=== PATIENT | male | born 1945 | race Caucasian/White ===

== ENCOUNTER 2019-10-23 12:43 | Outpatient (CLI) | payer MEDICARE, SELFPAY | END 2019-10-23 12:44 | disposition home or self-care (01) | LOC: CHSLAB 12:50 | PROVIDERS: PCP Internal Medicine; Visit Provider Specialist | DX: L57.0 Actinic keratosis (principal) | CPT/HCPCS: 88305 ==

== ENCOUNTER 2019-12-24 11:27 | Outpatient (CLI) | payer MEDICARE, SELFPAY ==
[2019-12-24 12:14] LABS: Creatinine Urine 85.94 mg/dL (40-278); Total Protein Urine Random 7.4 mg/dL (0.0-11.9)
[2019-12-24 12:55] LABS: Albumin Level 3.8 g/dL (3.4-5.0); Anion Gap 14.7 mmol/L (7-16); Blood Urea Nitrogen 25 mg/dL (7-18); Calcium 9.9 mg/dL (8.5-10.1); Carbon Dioxide 29 mmol/L (21-32); Chloride 104 mmol/L (98-108); Estimated Glomerular Filt Rate 53; Glucose 128 mg/dL (70-99); Osmolality Calculated 302 mOsm/kg (285-295); Phosphorus 3.4 mg/dL (2.6-4.7); Potassium 4.7 mmol/L (3.5-5.1); Sodium 143 mmol/L (136-145)
== END 2019-12-24 11:28 | disposition home or self-care (01) ==
LOC: CHSLAB 11:30
PROVIDERS: PCP Internal Medicine; Visit Provider Internal Medicine Nephrology
DX: N18.3 Chronic kidney disease, stage 3 (moderate) (principal)
CPT/HCPCS: 36415; 80069; 82570; 84156

== ENCOUNTER 2020-01-17 11:13 | Outpatient (CLI) | payer MEDICARE, SELFPAY ==
--- NOTE | ~2020-01-17 | XR_ITS ---
EXAMINATION: XR chest 2V DATE: 01/17/2020 11:43 INDICATION: Shortness of breath. TECHNIQUE: Frontal and lateral views of the chest were obtained on 3 radiographs. COMPARISON: Chest 2 views 04/04/2018, CT abdomen 08/26/2016 FINDINGS: There is mild scarring at the lung apices. No pleural effusion or pneumothorax. The heart s ize is normal. There are changes of heart valve replacement. There is prominent extrapleural fat bila terally. IMPRESSION: 1. Mild scarring at the lung apices. Reviewed, dictated and finalized at location A.
[2020-01-17 11:25] LABS: Basophils Absolute Auto 0.07 K/mm3 (0.00-0.10); Basophils Percent Auto 0.7 % (0.0-1.0); Eosinophils Absolute Auto 0.31 K/mm3 (0.02-0.50); Eosinophils Percent Auto 3.3 % (1.0-6.0); Hematocrit 48.8 % (37.0-46.0); Hemoglobin 15.8 g/dL (12.4-15.3); Immature Granulocyte Absolute 0.04 K/mm3 (0.00-0.00); Immature Granulocyte Percent A 0.4 % (0.0-0.0); Lymphocytes Absolute Auto 3.39 K/mm3 (1.10-4.50); Lymphocytes Percent Auto 35.8 % (18.0-42.0); Mean Corpuscular HGB Conc 32.4 g/dL (32.0-36.0); Mean Corpuscular Hemoglobin 28.7 pg (27.0-31.0); Mean Corpuscular Volume 88.7 fL (78.0-102.0); Monocytes Absolute Auto 0.62 K/mm3 (0.10-0.90); Monocytes Percent Auto 6.5 % (2.0-11.0); Neutrophils Absolute Auto 5.1 K/mm3 (1.7-7.2); Neutrophils Percent Auto 53.3 % (50.0-70.0); Platelet Count Result 178 K/mm3 (150-420); Red Cell Distribution Width 13.4 % (11.6-14.4); White Blood Count 9.5 K/mm3 (4.8-10.8)
[2020-01-17 11:50] LABS: Alanine Aminotransferase 36 U/L (16-63); Albumin Level 3.5 g/dL (3.4-5.0); Alkaline Phosphatase 90 U/L (46-116); Anion Gap 13.7 mmol/L (7-16); Aspartate Amino Transferase 26 U/L (15-37); Bilirubin,Total 0.5 mg/dL (0.00-1.00); Blood Urea Nitrogen 24 mg/dL (7-18); Calcium 9.2 mg/dL (8.5-10.1); Carbon Dioxide 28 mmol/L (21-32); Chloride 103 mmol/L (98-108); Estimated Glomerular Filt Rate 57; Glucose 212 mg/dL (70-99); Osmolality Calculated 300 mOsm/kg (285-295); Potassium 4.7 mmol/L (3.5-5.1); Sodium 140 mmol/L (136-145); Total Protein 7.5 g/dL (6.4-8.2)
[2020-01-17 12:16] LABS: D Dimer 0.92 mg/L (0.19-0.50)
[2020-01-17 12:51] LABS: BNP 120 pg/mL (0-100)
[2020-01-18 18:00] LABS: Hemoglobin A1C 7.3 % (<5.7)
== END 2020-01-17 11:14 | disposition home or self-care (01) ==
PROVIDERS: PCP Internal Medicine; Visit Provider Internal Medicine Pulmonary Disease
DX: R06.89 Other abnormalities of breathing (principal); J44.9 Chronic obstructive pulmonary disease, unspecified; R73.9 Hyperglycemia, unspecified
CPT/HCPCS: 36415; 71046; 80053; 83036; 83880; 85025; 85380

== ENCOUNTER 2020-01-17 13:32 | Emergency (ER) | payer MEDICARE, SELFPAY ==
--- NOTE | ~2020-01-17 | CT_ITS ---
EXAMINATION: CTA chest PE protocol DATE: 01/17/2020 15:33 CDT INDICATION: Elevated d-dimer. Shortness of breath. TECHNIQUE: Computed tomographic angiography (CTA) of the chest was performed with 100 mL Omnipaque-35 0 intravenous contrast. The dose-length product was 631.83 mGy-cm. Maximum intensity projection 3D-re constructions of the aorta and other arteries were constructed by the technologist on a separate work station. Automated exposure control and iterative reconstruction technique were employed. COMPARISON: Chest dated 01/17/2020 FINDINGS: The is technically adequate without evidence for pulmonary embolism. There are nonenlarged mediastinal lymph nodes, likely reactive. Cardiomegaly. No significant pleural or pericardial effusio n. There is atherosclerosis of the aorta and coronary arteries. There is right lower lobe atelectasis . No focal airspace consolidation. No endobronchial lesions. No pulmonary nodules. There is diffuse i diopathic skeletal hyperostosis (DISH) of the thoracic spine. Status post median sternotomy for CABG. IMPRESSION: 1. No evidence for pulmonary embolism. No acute cardiopulmonary disease. Reviewed, dictated and finalized at location A.
--- NOTE | ~2020-01-17 | US_ITS ---
EXAMINATION: US venous doppler [facility] DATE: 01/17/2020 15:13 INDICATION: Shortness of breath. TECHNIQUE: Grayscale ultrasound images without and with compression and Doppler ultrasound images of the bilateral lower extremity veins were obtained. COMPARISON: None. FINDINGS: The visualized portions of right common femoral vein, profunda (deep) femoral vein, femoral vein, pop liteal vein, peroneal veins, posterior tibial veins, and greater saphenous vein outflow are patent. The visualized portions of left common femoral vein, profunda femoral vein, femoral vein, popliteal v ein, peroneal veins, posterior tibial veins, and greater saphenous vein outflow are patent. IMPRESSION: 1. No deep venous thrombosis. Reviewed, dictated and finalized at location A.
[2020-01-17 14:15] VITALS: BP 155/83; PULSE 61; RESP 18; TEMP 36.4; O2SAT 96
--- NOTE | 2020-01-17 15:43 | ED.RECABL ---
HPI - Recheck/Abnormal Lab/Rx General Chief Complaint: Recheck/Abnormal Lab/Rx Stated Complaint: possible blood clot Source: patient Mode of arrival: ambulatory Limitations: no limitations History of Present Illness HPI narrative: Patient presented with an elevated D-dimer is following with his pulmonary doctor and had some blood work performed today and had an abnormally elevated D-dimer and was advised to present to the emergency department for further evaluation. The patient currently is asymptomatic, does have a history of COPD but there is currently no shortness of breath no chest pain or pressure no pain with deep inspiration no fever or chills no abdominal pain no back pain no calf pain or calf swelling. Symptoms since prior visit: no new symptoms Associated symptoms: none Related Data Home Medications Medication Instructions Recorded Confirmed budesonide 90 mcg/actuation breath 2 inhalation INHALATION Q12H 07/13/19 01/17/20 activated powder inhaler citalopram 40 mg tablet 20 mg PO .Bedtime tablet 07/13/19 01/17/20 fesoterodine 4 mg tablet,extended 4 mg PO DAILY 07/13/19 01/17/20 release 24 hr fluticasone fur. 100 mcg-umeclid 1 inhalation INHALATION DAILY 07/13/19 01/17/20 62.5 mcg-vilant 25 mcg inhalat.powder memantine 10 mg tablet 10 mg PO BID 07/13/19 01/17/20 memantine 10 mg tablet 10 mg PO BID 07/13/19 01/17/20 mirabegron 25 mg tablet,extended 25 mg PO DAILY 07/13/19 01/17/20 release 24 hr potassium chloride 20 mEq 20 meq PO DAILY 07/13/19 01/17/20 tablet,extended release(part/cryst) rosuvastatin 20 mg tablet 20 mg PO DAILY 07/13/19 01/17/20 Allergies Allergy/AdvReac Type Severity Reaction Status Date / Time lorazepam Allergy Intermediate hives Verified 07/13/19 09:21 Review of Systems Review of Systems: All systems reviewed & are unremarkable except as noted in HPI and below PMFSH Past Medical History Medical History COPD (chronic obstructive pulmonary disease) Dementia Depression DM2 (diabetes mellitus, type 2) Hyperlipidemia Hypertension ADIS (obstructive sleep apnea) Overweight Surgical History Surgical History History of hernia repair History of mitral valve repair 2015. [facility] Hx of cataract surgery Right Eye Family History Family History Father , Age 86 Acute myocardial infarction Dementia Mother , Age 83 No problems noted. Other Family history of cardiovascular disease Social History Social History (Updated 07/13/19 @ 09:33 by Rekha Saucedo) Smoking status: Never smoker Alcohol intake: never Additional living arrangements comments: Exam Const: General: no acute distress and alert Orientation/consciousness: patient oriented x3 HENMT: Head: normal to inspection Eyes: Conjunctivae: conjunctivae normal Pupils: Equal, round and reactive pupils present Neck: Neck: normal visual inspection Chest: Chest palpation & inspection: normal inspection of the chest Resp: Effort & Inspection: normal respiratory effort Auscultation: clear to auscultation bilaterally GI: Auscultation: normal bowel sounds : Testes: Testes normal Skin: General skin exam: normal color Rashes: no rashes Neuro: General: patient oriented x3, moves all extremities, no meningeal signs and no focal motor deficits Extrem: General: normal to inspection and no pedal edema Psych: Appearance: grossly normal Mental Status: mental status grossly normal Affect: normal affect Attitude: cooperative Thought content: Yes Normal thought content present Course Course Emergency Course: After re-evaluation of patient patient is currently stable with no symptoms, no shortness of breath. CTA of chest and Doppler ultrasounds of bilateral lower extremi
[2020-01-17 15:46] VITALS: RESP 15; O2SAT 97
== END 2020-01-17 15:48 | disposition home or self-care (01) ==
PROVIDERS: Emergency Provider Emergency Medicine; PCP Internal Medicine
DX: R79.1 Abnormal coagulation profile (principal); J44.9 Chronic obstructive pulmonary disease, unspecified; E11.9 Type 2 diabetes mellitus without complications; E78.5 Hyperlipidemia, unspecified; I10 Essential (primary) hypertension
CPT/HCPCS: 36415; 71046; 71275; 80053; 83036; 83880; 85025; 85380; 93970; 99282; 99284; Q9965

== ENCOUNTER 2020-04-22 13:37 | Outpatient (RCR) | payer MEDICARE, SELFPAY ==
[2020-04-22 14:00] VITALS: BP 119/75; PULSE 64; RESP 16; O2SAT 96; BMI 33.0
[2020-04-23 16:00] VITALS: PULSE 64
== END 2020-07-21 23:59 | disposition home or self-care (01) ==
PROVIDERS: PCP Internal Medicine; Visit Provider Specialist
DX: Z98.61 Coronary angioplasty status (principal)
CPT/HCPCS: 93798

== ENCOUNTER 2020-05-19 14:50 | Outpatient (CLI) | payer MEDICARE, SELFPAY ==
[2020-05-19 16:35] LABS: Anion Gap 9 mmol/L (8-16); Blood Urea Nitrogen 25 mg/dL (7-18); Calcium 9.5 mg/dL (8.5-10.1); Carbon Dioxide 30 mmol/L (21-32); Chloride 103 mmol/L (98-108); Estimated Glomerular Filt Rate 50; Glucose 135 mg/dL (70-99); Osmolality Calculated 300 mOsm/kg (285-295); Potassium 3.7 mmol/L (3.5-5.1); Sodium 142 mmol/L (136-145)
== END 2020-05-19 14:51 | disposition home or self-care (01) ==
LOC: CHSLAB 14:52
PROVIDERS: PCP Internal Medicine; Visit Provider Specialist
DX: R60.9 Edema, unspecified (principal)
CPT/HCPCS: 36415; 80048; 83735

== ENCOUNTER 2020-06-18 16:38 | Outpatient (CLI) | payer MEDICARE, SELFPAY ==
[2020-06-18 16:58] LABS: Basophils Absolute Auto 0.06 K/mm3 (0.00-0.10); Basophils Percent Auto 0.7 % (0.0-1.0); Eosinophils Absolute Auto 0.19 K/mm3 (0.02-0.50); Eosinophils Percent Auto 2.3 % (1.0-6.0); Hematocrit 45.4 % (37.0-46.0); Hemoglobin 14.4 g/dL (12.4-15.3); Immature Granulocyte Absolute 0.03 K/mm3 (0.00-0.00); Immature Granulocyte Percent A 0.4 % (0.0-0.0); Lymphocytes Absolute Auto 3.06 K/mm3 (1.10-4.50); Lymphocytes Percent Auto 36.6 % (18.0-42.0); Mean Corpuscular HGB Conc 31.7 g/dL (32.0-36.0); Mean Corpuscular Volume 91.5 fL (78.0-102.0); Mean Platelet Volume 10.4 fl (8.7-11.0); Monocytes Absolute Auto 0.64 K/mm3 (0.10-0.90); Monocytes Percent Auto 7.7 % (2.0-11.0); Neutrophils Absolute Auto 4.4 K/mm3 (1.7-7.2); Neutrophils Percent Auto 52.3 % (50.0-70.0); Platelet Count Result 161 K/mm3 (150-420); Red Blood Count 4.96 M/mm3 (4.70-6.10); Red Cell Distribution Width 13.5 % (11.6-14.4); White Blood Count 8.4 K/mm3 (4.8-10.8)
[2020-06-18 17:23] LABS: Creatinine Urine 55.83 mg/dL (40-278); Total Protein Urine Random < 6.0 mg/dL (0.0-11.9)
[2020-06-18 17:38] LABS: Albumin Level 3.7 g/dL (3.4-5.0); Anion Gap 10 mmol/L (8-16); Blood Urea Nitrogen 24 mg/dL (7-18); Calcium 9.4 mg/dL (8.5-10.1); Carbon Dioxide 27 mmol/L (21-32); Chloride 107 mmol/L (98-108); Estimated Glomerular Filt Rate > 60; Glucose 156 mg/dL (70-99); Osmolality Calculated 305 mOsm/kg (285-295); Phosphorus 3.2 mg/dL (2.6-4.7); Potassium 4.3 mmol/L (3.5-5.1); Sodium 144 mmol/L (136-145); Uric Acid 6.6 mg/dL (3.5-7.2)
[2020-06-21 14:09] LABS: Parathyroid Intact 90 pg/mL (14-64)
[2020-06-24 09:40] LABS: Vitamin D 25 Hydroxy 32 ng/mL (30-100)
== END 2020-06-18 16:39 | disposition home or self-care (01) ==
PROVIDERS: PCP Internal Medicine; Visit Provider Internal Medicine Nephrology
DX: N20.9 Urinary calculus, unspecified (principal); N18.30 Chronic kidney disease, stage 3 unspecified
CPT/HCPCS: 36415; 80069; 82306; 82570; 83970; 84156; 84550; 85025

== ENCOUNTER 2020-06-20 09:53 | Outpatient (CLI) | payer MEDICARE, SELFPAY | END 2020-06-20 09:54 | disposition home or self-care (01) | PROVIDERS: PCP Internal Medicine; Visit Provider Internal Medicine Nephrology | DX: N20.9 Urinary calculus, unspecified (principal); N18.30 Chronic kidney disease, stage 3 unspecified | CPT/HCPCS: 36415; 82340; 82507; 82570; 83735; 83945; 83986; 84105; 84133; 84300; 84392; 84560 ==

== ENCOUNTER 2020-07-23 16:29 | Outpatient (RCR) | payer MEDICARE, SELFPAY ==
[2020-07-22 00:02] VITALS: BP 119/75; PULSE 64; RESP 16; O2SAT 96; BMI 33.0
== END 2020-07-23 20:00 | disposition home or self-care (01) ==
PROVIDERS: PCP Internal Medicine; Visit Provider Specialist
DX: Z98.61 Coronary angioplasty status (principal)
CPT/HCPCS: 93798

== ENCOUNTER 2020-08-11 11:21 | Outpatient (CLI) | payer MEDICARE, SELFPAY ==
[2020-08-11 12:02] LABS: SARS-CoV-2 Ag Positive (Negative)
== END 2020-08-11 11:22 | disposition home or self-care (01) ==
LOC: CHSLAB 11:23
PROVIDERS: PCP Internal Medicine; Visit Provider Internal Medicine
DX: U07.1 COVID-19 (principal)
CPT/HCPCS: 87426

== ENCOUNTER 2020-10-29 17:10 | Outpatient (CLI) | payer MEDICARE, SELFPAY ==
[2020-10-29 17:44] LABS: Hematocrit 43.8 % (37.0-46.0); Hemoglobin 13.8 g/dL (12.4-15.3); Mean Corpuscular HGB Conc 31.5 g/dL (32.0-36.0); Mean Corpuscular Hemoglobin 27.9 pg (27.0-31.0); Mean Corpuscular Volume 88.5 fL (78.0-102.0); Mean Platelet Volume 10.6 fl (8.7-11.0); Platelet Count Result 178 K/mm3 (150-420); Red Blood Count 4.95 M/mm3 (4.70-6.10); Red Cell Distribution Width 14.8 % (11.6-14.4); White Blood Count 9.5 K/mm3 (4.8-10.8)
[2020-10-29 17:44] LABS: Appearance Urine Clear (Clear); Bilirubin Urine Negative (Negative); Color Urine Yellow (Yellow); Glucose Urine UA Negative (Negative); Ketones Urine Negative (Negative); Leukocyte Esterase Ur Negative LEU/UL (Negative); Nitrate Urine Negative (Negative); Protein Urine Negative (Negative)
[2020-10-29 18:10] LABS: Add Urine Microscopic? YES; Bacteria Urine Trace /hpf; Blood Urine Trace-Intact (Negative); Squamous Epithelial Cell Urine Rare /hpf (Few); WBC Urine 0-3 /hpf (0-3)
[2020-10-29 19:17] LABS: Alanine Aminotransferase 34 U/L (16-63); Albumin Level 3.5 g/dL (3.4-5.0); Alkaline Phosphatase 110 U/L (46-116); Anion Gap 8 mmol/L (8-16); Aspartate Amino Transferase 23 U/L (15-37); Bilirubin,Total 0.5 mg/dL (0.00-1.00); Blood Urea Nitrogen 22 mg/dL (7-18); Calcium 9.3 mg/dL (8.5-10.1); Carbon Dioxide 33 mmol/L (21-32); Chloride 103 mmol/L (98-108); Estimated Glomerular Filt Rate 56; Glucose 182 mg/dL (70-99); Osmolality Calculated 306 mOsm/kg (285-295); Potassium 4.4 mmol/L (3.5-5.1); Prostate Specific Antigen 0.4 ng/mL (< OR = 4.0); Sodium 144 mmol/L (136-145); Thyroid Stimulating Hormone 1.22 uIU/mL (0.36-3.74); Total Protein 6.9 g/dL (6.4-8.2)
[2020-10-30 10:46] LABS: Hemoglobin A1C 7.3 % (<5.7)
== END 2020-10-29 17:11 | disposition home or self-care (01) ==
LOC: CHSLAB 17:11
PROVIDERS: PCP Internal Medicine; Visit Provider Internal Medicine
DX: L03.116 Cellulitis of left lower limb (principal); Z12.5 Encounter for screening for malignant neoplasm of prostate; R73.01 Impaired fasting glucose; R53.83 Other fatigue
CPT/HCPCS: 36415; 80053; 81001; 83036; 84153; 84443; 85025; G0103

== ENCOUNTER 2020-10-30 12:05 | Outpatient (CLI) | payer MEDICARE, SELFPAY ==
--- NOTE | ~2020-10-30 | US_ITS ---
EXAMINATION: US venous doppler [facility] DATE: 10/30/2020 12:31 INDICATION: Left lower limb pain and edema. TECHNIQUE: Grayscale ultrasound images without and with compression and Doppler ultrasound images of the left lower extremity veins were obtained. COMPARISON: Ultrasound 01/17/2020 FINDINGS: The visualized portions of left common femoral vein, profunda (deep) femoral vein, femoral vein, popl iteal vein, peroneal veins, posterior tibial veins, and greater saphenous vein outflow are patent. IMPRESSION: 1. No deep venous thrombosis. Reviewed, dictated and finalized at location A. [employer]TAIN[employer]
== END 2020-10-30 12:06 | disposition home or self-care (01) ==
PROVIDERS: PCP Internal Medicine; Visit Provider Internal Medicine
DX: M79.605 Pain in left leg (principal); R60.0 Localized edema
CPT/HCPCS: 93971

== ENCOUNTER 2020-12-29 10:34 | Outpatient (CLI) | payer MEDICARE, SELFPAY ==
--- NOTE | ~2020-12-29 | XR_ITS ---
XR abdomen/kub 1V DATE: 12/29/2020 10:56 INDICATION: History of kidney stones TECHNIQUE: AP projection, 2 views COMPARISON: 06/18/2019 KUB 01/17/2020 CT pulmonary scan FINDINGS: There are at least 2 and possibly more calcifications overlying the lower pole of the left kidney, the largest measuring approximately 5-6 mm maximal dimension. Noncontrast CT abdomen pelvis e xamination would be more sensitive for detection of urinary tract stones. There is a moderately prominent amount of fecal material in the rectum and colon but no bowel obstruc tion. The psoas shadows are intact. No visceromegaly is evident. Status post sternotomy and mitral valve replacement. Diffuse osteopenia. Degenerative changes of the thoracic and lumbar spine. Status post left hip arthr oplasty. IMPRESSION: Left nephrolithiasis Reviewed, dictated and finalized at Location A. Reviewed, dictated and finalized at location A. IMPRESSION: Left nephrolithiasis
== END 2020-12-29 10:35 | disposition home or self-care (01) ==
LOC: CHSIMG 10:36
PROVIDERS: PCP Internal Medicine; Visit Provider Internal Medicine Nephrology
DX: N20.0 Calculus of kidney (principal)
CPT/HCPCS: 74018

== ENCOUNTER 2021-02-13 10:26 | Outpatient (CLI) | payer MEDICARE, SELFPAY ==
[2021-02-13 11:00] LABS: Creatinine Urine 200.53 mg/dL (40-278); MALB Creatinine Ratio 20.3 mg/g (0-30); Microalbumin Urine Random 40.9 mg/L
[2021-02-13 11:03] LABS: Hemoglobin A1C 7.3 % (<5.7)
[2021-02-13 11:20] LABS: Alanine Aminotransferase 37 U/L (16-63); Albumin Level 3.6 g/dL (3.4-5.0); Alkaline Phosphatase 108 U/L (46-116); Anion Gap 12 mmol/L (8-16); Aspartate Amino Transferase 25 U/L (15-37); Bilirubin,Total 0.5 mg/dL (0.00-1.00); Blood Urea Nitrogen 20 mg/dL (7-18); Calcium 9.6 mg/dL (8.5-10.1); Carbon Dioxide 27 mmol/L (21-32); Chloride 103 mmol/L (98-108); Cholesterol 184 mg/dL (0-200); Estimated Glomerular Filt Rate > 60; Glucose 152 mg/dL (70-99); HDL Direct 40 mg/dL (40-60); LDL Cholesterol Calculated 75 mg/dL (<130); Osmolality Calculated 299 mOsm/kg (285-295); Potassium 4.1 mmol/L (3.5-5.1); Sodium 142 mmol/L (136-145); Total Protein 6.9 g/dL (6.4-8.2); Triglycerides 346 mg/dL (0-150)
== END 2021-02-13 10:27 | disposition home or self-care (01) ==
LOC: CHSLAB 10:30
PROVIDERS: PCP Internal Medicine; Visit Provider Internal Medicine
DX: E11.9 Type 2 diabetes mellitus without complications (principal)
CPT/HCPCS: 36415; 80053; 80061; 82043; 83036

== ENCOUNTER 2021-06-05 10:11 | Outpatient (CLI) | payer MEDICARE, SELFPAY ==
[2021-06-05 11:09] LABS: Alanine Aminotransferase 38 U/L (16-63); Albumin Level 3.6 g/dL (3.4-5.0); Alkaline Phosphatase 99 U/L (46-116); Anion Gap 11 mmol/L (8-16); Aspartate Amino Transferase 21 U/L (15-37); Bilirubin,Total 0.5 mg/dL (0.00-1.00); Blood Urea Nitrogen 18 mg/dL (7-18); Calcium 9.6 mg/dL (8.5-10.1); Carbon Dioxide 27 mmol/L (21-32); Chloride 106 mmol/L (98-108); Cholesterol 192 mg/dL (0-200); Estimated Glomerular Filt Rate 58; Glucose 132 mg/dL (70-99); HDL Direct 35 mg/dL (40-60); LDL Cholesterol Calculated 88 mg/dL (<130); Osmolality Calculated 301 mOsm/kg (285-295); Potassium 4.1 mmol/L (3.5-5.1); Sodium 144 mmol/L (136-145); Triglycerides 346 mg/dL (0-150)
== END 2021-06-05 10:12 | disposition home or self-care (01) ==
PROVIDERS: PCP Internal Medicine; Visit Provider Internal Medicine
DX: E11.9 Type 2 diabetes mellitus without complications (principal); E78.5 Hyperlipidemia, unspecified
CPT/HCPCS: 36415; 80053; 80061; 83036

== ENCOUNTER 2021-09-11 09:32 | Outpatient (CLI) | payer MEDICARE, SELFPAY ==
[2021-09-11 09:44] LABS: Basophils Absolute Auto 0.08 K/mm3 (0.00-0.10); Basophils Percent Auto 0.9 % (0.0-1.0); Eosinophils Absolute Auto 0.39 K/mm3 (0.02-0.50); Eosinophils Percent Auto 4.6 % (1.0-6.0); Hematocrit 48.7 % (37.0-46.0); Hemoglobin 15.3 g/dL (12.4-15.3); Immature Granulocyte Absolute 0.03 K/mm3 (0.00-0.00); Immature Granulocyte Percent A 0.4 % (0.0-0.0); Lymphocytes Absolute Auto 3.51 K/mm3 (1.10-4.50); Lymphocytes Percent Auto 41.5 % (18.0-42.0); Mean Corpuscular HGB Conc 31.4 g/dL (32.0-36.0); Mean Corpuscular Volume 89.2 fL (78.0-102.0); Monocytes Absolute Auto 0.69 K/mm3 (0.10-0.90); Monocytes Percent Auto 8.2 % (2.0-11.0); Neutrophils Absolute Auto 3.8 K/mm3 (1.7-7.2); Neutrophils Percent Auto 44.4 % (50.0-70.0); Platelet Count Result 158 K/mm3 (150-420); Red Blood Count 5.46 M/mm3 (4.70-6.10); Red Cell Distribution Width 13.7 % (11.6-14.4); White Blood Count 8.5 K/mm3 (4.8-10.8)
[2021-09-11 10:13] LABS: Hemoglobin A1C 7.2 % (<5.7)
== END 2021-09-11 09:33 | disposition home or self-care (01) ==
LOC: CHSLAB 09:34
PROVIDERS: PCP Internal Medicine; Visit Provider Internal Medicine
DX: E11.9 Type 2 diabetes mellitus without complications (principal)
CPT/HCPCS: 36415; 83036; 85025

== ENCOUNTER 2021-11-25 13:41 | Outpatient (CLI) | payer MEDICARE, SELFPAY ==
--- NOTE | ~2021-11-25 | XR_ITS ---
EXAM: XR abdomen/kub 1V HISTORY: Calculus of kidney COMPARISON: 12/29/2020. FINDINGS: Lung bases clear. Interval aortic graft placement. Surgical clips over the right hip. Part ially visualized left hip arthroplasty. Diffuse osteopenia. Approximately 4 calculi project over the inferior left renal pole, the largest measuring 6 mm, stable in position given interval changes in po sitioning. Additional hyperdensities project over the upper and mid left renal pole, presumably repre senting summation artifact although CT would be more sensitive for this determination. Degenerative c hanges in the lumbar spine. IMPRESSION: Grossly stable left inferior pole renal calculi. Reviewed, dictated and finalized at location K.
== END 2021-11-25 13:42 | disposition home or self-care (01) ==
PROVIDERS: PCP Internal Medicine; Visit Provider Internal Medicine Nephrology
DX: N20.0 Calculus of kidney (principal)
CPT/HCPCS: 74018

== ENCOUNTER 2022-01-22 09:40 | Outpatient (CLI) | payer MEDICARE, SELFPAY ==
--- NOTE | ~2022-01-22 | XR_ITS ---
XR chest 2V 01/22/2022 09:58 Indication: Chronic obstructive pulmonary disease Procedure: 2 view chest Comparison: Comparison to multiple prior studies sequentially, with oldest reviewed study dated 06/22. Findings: Status post median sternotomy for CABG. Borderline heart size. There is a prosthetic heart valve. No focal air space disease, pulmonary edema, pleural effusion or suspected pneumothorax. The l ungs are hyperinflated which is consistent with, but not diagnostic of chronic obstructive pulmonary disease. Impression: 1: No acute cardiopulmonary disease. Reviewed, dictated and finalized at location A. Impression: 1: No acute cardiopulmonary disease.
[2022-01-22 10:35] VITALS: PULSE 67; O2SAT 94
[2022-01-22 10:42] VITALS: PULSE 67; O2SAT 93
--- NOTE | 2022-01-22 10:54 | HOMEO2EVAL ---
Evaluation was performed at [facility] Home Oxygen Evaluation RC: Home Oxygen (O2) Evaluation Start: 01/22/22 10:47 Freq: Status: Active Protocol: RPE Activity Type Activity Date Activity User E-sign Co-sign Detail Recorded Client Recorded Date Recorded By Document 01/22/22 10:35 STF [id number] 01/22/22 10:54 STF Document 01/22/22 10:42 STF [id number] 01/22/22 10:54 STF 01/22/22 01/22/22 10:35 10:42 Home O2 Evaluation Test Phase Resting Exercise Oxygen Delivery Room Air Room Air Pulse Oximetry (90-100 %) 94 93 Pulse Rate (60-100 beats/min) 67 67 Activity Tolerance Excellent Rating of Perceived Dyspnea (PD) +1 Mild, Noticeable to the Participant but Not to an Observer Rate of Perceived Exertion (PE) 12 Ambulation Distance (feet) 750 Ambulation Distance (meters) 228.58 Home Oxygen Evaluation Comments will begin walk Pt walked pushing approx. 750 ft wheelchair on on roomair with roomair Sp02 staying > 91% throughout the walk. Pt tolerated the walk well. PLB encouraged. Treatment Charges O2 Evaluation - Outpatient
--- NOTE | 2022-01-26 15:44 | WPDPFTINT ---
PFT Procedure Performed PFT Procedure Performed Spirometry with Pre/Post Bronchodilator Plethysmography (Lung Vol) Diffusing Cap (DLCO) Flow Vol Loop PFT Interpretation DOS: 01/22/2022 REQUESTING: Dr Yoo REASON FOR TESTING: COPD PULMONARY FUNCTION TESTS Results are reliable and reproducible. Spirometry: Pre-bronchodilator FEV1 is 68% predicted, 2.2 L. This is mildly decreased. The pre bronchodilator FVC is 76% predicted, 3.21 L. the FEV1/FVC ratio is 69% predicted. The FEF 25-75% is 36% predicted severely decreased. After bronchodilator administration there was an insignificant response in flows in the FEV1 and FVC. There is a 28% increase in the FEF 25-75% which is significant. This is consistent with a small airways pattern. Lung volumes: The total lung capacity is 78% predicted, mildly decreased consistent with mild restriction. The residual volume is 77% predicted. The RV/TLC is within the normal range. There is no air trapping. Airway resistance 190%, increased. Diffusion: DLCO 78% predicted normal. Flow volume loop: Mild scooping of the expiratory limb IMPRESSION: This study shows a mild obstructive ventilatory impairment which is significant in the small airways, mild restriction and normal diffusion. Compared to prior study September 04, 2019 values are similar. The FEV1 was 66%, 2.26 L and now is 68% 2.2 L. There was a similar decrease in the IKC29-17% and a similar response to bronchodilator. Total lung capacity was also mildly reduced 77%, currently 78%. DLCO was similar. No significant change since 2019. Isabella Baltazar MD
== END 2022-01-22 09:41 | disposition home or self-care (01) ==
LOC: CHSCARD 09:42
PROVIDERS: PCP Internal Medicine; Visit Provider Internal Medicine Pulmonary Disease
DX: J44.9 Chronic obstructive pulmonary disease, unspecified (principal)
CPT/HCPCS: 71046; 94060; 94618; 94726; 94729

== ENCOUNTER 2022-02-06 08:38 | Emergency (ER) | payer MEDICARE, SELFPAY ==
--- NOTE | ~2022-02-06 | XR_ITS ---
XR knee LT 3V DATE: 02/06/2022 09:22 INDICATION: Anterior knee pain after fall TECHNIQUE: AP, lateral, sunrise views COMPARISON: October 03, 2017 left FINDINGS: Mild suprapatellar knee joint effusion. Osteopenia. There is minimal periarticular spurring of the patella. Knee joint spaces appear well preserved. There is chronic mild periosteal reaction along the proximal tibial shaft. No recent fracture or dislocation. No bone destruction is evident. IMPRESSION: Mild suprapatellar knee joint effusion Osteopenia Reviewed, dictated and finalized at location A.
[2022-02-06 08:45] VITALS: BP 123/67; PULSE 95; RESP 20; TEMP 36.6; O2SAT 98
[2022-02-06] MEDS: KETOROLAC 30 MG/ML VIAL (*BKC) IM (09:15)
[2022-02-06] MEDS: TETANUS,DIPHTHERIA,AC PERTUSSIS ADULT 0.5 ML (ADACEL) IM (09:16)
--- NOTE | 2022-02-06 09:41 | ED.LOWEXIN ---
HPI - Extremity Injury (Lower) General Chief Complaint: Extremity Injury, Lower Stated Complaint: L knee pain after fall Source: patient and family Mode of arrival: ambulatory Limitations: no limitations History of Present Illness HPI Narrative: this is a 77-year-old gentleman that presents after he had a fall directly onto his left knee causing pain and decreased range of motion with some superficial abrasions has some limited range of motion secondary to pain and swelling has a good strong brisk pedal pulse on the left with no other injuries. MD complaint: knee injury Onset (ago): day(s) Injury: Left: knee ( swelling) Type of Injury: blunt Place: home Severity: moderate Severity scale (1-10): 6 Related Data Home Medications Medication Instructions Recorded Confirmed fluticasone fur. 100 mcg-umeclid 1 inhalation inhalation DAILY 07/13/19 02/06/22 62.5 mcg-vilant 25 mcg inhalat.powder (Trelegy Ellipta) memantine 10 mg tablet (Namenda) 10 mg PO BID 07/13/19 09/01/20 rosuvastatin 20 mg tablet 20 mg PO DAILY 07/13/19 09/01/20 albuterol sulfate 90 mcg/actuation 1 puff inhalation Q4H PRN 01/14/22 02/06/22 aerosol inhaler Shortness Of Breath aspirin 81 mg tablet,delayed 81 mg PO DAILY 01/14/22 02/06/22 release donepezil 10 mg tablet 10 mg PO QHS 01/14/22 02/06/22 loratadine 10 mg tablet (Claritin) 10 mg PO DAILY 01/14/22 02/06/22 magnesium oxide 400 mg (241.3 mg 400 mg PO DAILY 01/14/22 02/06/22 magnesium) tablet metoprolol succinate 50 mg 50 mg PO DAILY 01/14/22 tablet,extended release 24 hr multivit with min-folic 1 tablet PO DAILY 01/14/22 acid-lutein 400 mcg-250 mcg chewable tablet (Centrum Silver) potassium chloride 20 mEq 10 meq PO TID 01/14/22 tablet,extended release(part/cryst) citalopram 40 mg tablet 40 mg PO .Bedtime 02/04/22 02/06/22 Allergies Allergy/AdvReac Type Severity Reaction Status Date / Time lorazepam Allergy Intermediate hives Verified 02/04/22 12:43 Review of Systems Review of Systems: All systems reviewed & are unremarkable except as noted in HPI and below PMFSH Past Medical History Medical History (Updated 02/06/22 @ 09:45 by Gordy Valero MD) COPD (chronic obstructive pulmonary disease) Dementia Depression DM2 (diabetes mellitus, type 2) Hyperlipidemia Hypertension ADIS (obstructive sleep apnea) Overweight Surgical History Surgical History History of hernia repair History of mitral valve repair 2014. [facility] Hx of cataract surgery Right Eye Family History Family History Father , Age 86 Acute myocardial infarction Dementia Mother , Age 83 No problems noted. Other Family history of cardiovascular disease Social History Social History Smoking status: Never smoker Second hand tobacco smoke exposure: Yes Alcohol intake: never Additional living arrangements comments: Exam Const: General: healthy appearing, no acute distress and alert Limitations: no limitations HENMT: Head: normal to inspection Eyes: Conjunctivae: conjunctivae normal EOM: EOMs intact bilaterally Neck: Neck: normal visual inspection, no lymphadenopathy and no meningeal signs Chest: Chest palpation & inspection: normal inspection of the chest Resp: Effort & Inspection: normal respiratory effort Auscultation: clear to auscultation bilaterally Cardio: Rate: regular rate Rhythm: regular rhythm GI: GI Palp: Yes Soft to palpation Auscultation: normal bowel sounds Back/Spine/Pelvis: Back: no CVA tenderness Skin: Wounds: wounds noted Other: Superficial abrasions anterior left knee Neuro: General: patient oriented x3, moves all extremities, no meningeal signs and no focal motor deficits Extrem: Other: swelling with tenderness
[2022-02-06 10:04] VITALS: BP 123/97; PULSE 95; RESP 20; TEMP 37.1; O2SAT 94
== END 2022-02-06 10:05 | disposition home or self-care (01) ==
PROVIDERS: Emergency Provider Emergency Medicine; PCP Internal Medicine
DX: S83.92XA Sprain of unspecified site of left knee, initial encounter (principal); W19.XXXA Unspecified fall, initial encounter; J44.9 Chronic obstructive pulmonary disease, unspecified; E11.9 Type 2 diabetes mellitus without complications; E78.5 Hyperlipidemia, unspecified; I10 Essential (primary) hypertension; F32.A Depression, unspecified
CPT/HCPCS: 73562; 90715; 96372; 99284; J1885

== ENCOUNTER 2022-02-25 07:44 | Outpatient (CLI) | payer MEDICARE, SELFPAY ==
--- NOTE | 2022-03-13 00:25 | WPDPFTINT ---
PFT Procedure Performed PFT Procedure Performed Spirometry with Pre/Post Bronchodilator Plethysmography (Lung Vol) Diffusing Cap (DLCO) Flow Vol Loop PFT Interpretation DOS: 03/12/2022 REQUESTING: Dr. Yoo REASON FOR TESTING: Shortness of breath, asthma PULMONARY FUNCTION TESTS Results are reliable and reproducible. Spirometry: Pre bronchodilator FEV1 is 76% predicted, 1.48 L. pre bronchodilator FVC is 689% predicted, 2.18 L. The FEV1/FVC ratio is 68%, decreased. After bronchodilator administration there is a 29% increase in FEV1, normalizes to 98% predicted, 1.91 L. this is a 430 mL increase. The FEF 25-75 increases by 162%, now 164 % predicted, 3.01 L. Lung volumes: Total lung capacity is 79% predicted, 3.3 L. FRC is 47%, 1.18 L. ERV is 14%, 0.13 L which is reduced. Residual volume 53%, 0.95 L. RV/TLC is 29%, no air trapping. Airway resistance 259% increase. Diffusion: DLCO 104%. Flow volume loop: Unremarkable. IMPRESSION: ............... Isabella Baltazar MD
--- NOTE | 2022-03-22 12:01 | WPDSLEEPSTUD ---
Sleep Study Date of Study: 02/25/22 Ordering Provider: Isabella Baltazar MD Interpreting Physician: Lilly Ram DO Sleep Study Type: Split Polysomnogram Height: 1.85 m Weight: 113.398 kg Body Mass Index: 33.0 Neck Circumference (inches): 16 [place]: 5 Reason for Sleep Study Previously diagnosed ADIS and is no longer on PAP Therapy. Recently got a new CPAP in November 2021. Sleep History The patient is a 77-year-old male with COPD, dementia, depression, diabetes, hyperlipidemia, hypertension, newly diagnosed heart failure, COPD and known ADIS that had a sleep study ordered by his identity management developer for restarting PAP Therapy. the patient denies awakening from sleep short of breath. He denies awakening at night with heartburn, belching or cough. He constantly snores loud enough that others complain. He denies having trouble sleeping when he has a cold. He denies suddenly waking up gasping for air throughout the night. He denies having breathing problems at night observed by himself or others. He denies sweating excessively at night. He denies having heart palpitations or irregular heartbeats during the night. He constantly falls asleep during the day but never while driving. He denies sleep paralysis, cataplexy and hypnagogic / hypnopompic hallucinations. He denies having trouble at school or work due to sleepiness. He denies having nightmares. He he denies remembering his drains. He denies having thoughts racing through his mind. He denies feeling sad, depressed and anxious. He denies having muscular tension. He denies noticing parts of his body jerk. He denies kicking during the night. He denies having crawling and aching feelings in his legs as well as leg pain during the night. He denies grinding his teeth during sleep and awakening with morning jaw pain. He denies being bothered by pain during the day and being awakened by pain during the night. He denies waking up feeling stiff in the morning. He denies waking up with sore achy muscles. He denies waking up with pain in the neck, spine and other joints. The patient goes to bed at 10:30 p.m. on both weekdays and weekends. It takes him 10 minutes to fall asleep. He typically does not wake up throughout the night. He wakes up at 8:00 a.m. on both weekdays and weekends. He typically gets 10 hours of sleep per night. Will stay in bed for 30 minutes after waking up in the morning. He currently lives with his . He does not consume any caffeinated beverages within 2 hours of bedtime. He does not engage in physical exercise before bedtime. He will watch television before falling asleep. He will take naps in the afternoon or the evening and they are refreshing. He does drink caffeinated beverages throughout the day. He denies tobacco, alcohol and recreational drug use. [facility] Past Medical History Medical History (Updated 03/22/22 @ 22:00 by Lilly Ram DO) COPD (chronic obstructive pulmonary disease) Dementia Depression DM2 (diabetes mellitus, type 2) Hyperlipidemia Hypertension ADIS (obstructive sleep apnea) Overweight Surgical History Surgical History History of hernia repair History of mitral valve repair 2014. [facility] Hx of cataract surgery Right Eye Family History Family History Father , Age 86 Acute myocardial infarction Dementia Mother , Age 83 No problems noted. Other Family history of cardiovascular disease Social History Social History Smoking status: Never smoker Second hand tobacco smoke exposure: Yes Alcohol intake: never Additional living arrangements comments: Medications Home Medications Medication Instructions Recorded Confirmed Type fluticasone fur. 100 mcg-umeclid 1 inhal
[2022-03-22 22:07] VITALS: BMI 33.0
--- NOTE | 2022-08-27 15:24 | SLEEP ---
pt is still struggling with device. pt is calling [facility] office for appt
== END 2022-02-26 07:13 | disposition home or self-care (01) ==
LOC: ANHCSM 07:47
PROVIDERS: PCP Internal Medicine; Visit Provider Internal Medicine Critical Care Medicine
DX: G47.19 Other hypersomnia (principal); G47.33 Obstructive sleep apnea (adult) (pediatric); R00.1 Bradycardia, unspecified
CPT/HCPCS: 95811

== ENCOUNTER 2022-04-08 14:05 | Outpatient (CLI) | payer MEDICARE, SELFPAY ==
[2022-04-08 14:47] LABS: Ferritin 264 ng/mL (26-388)
== END 2022-04-08 14:06 | disposition home or self-care (01) ==
LOC: CHSLAB 14:08
PROVIDERS: PCP Internal Medicine; Visit Provider Physician Assistant
DX: D64.9 Anemia, unspecified (principal)
CPT/HCPCS: 36415; 82728

== ENCOUNTER 2022-05-06 08:43 | Outpatient (CLI) | payer MEDICARE, SELFPAY ==
[2022-05-06 08:55] LABS: Basophils Absolute Auto 0.08 K/mm3 (0.00-0.10); Basophils Percent Auto 0.9 % (0.0-1.0); Eosinophils Percent Auto 3.3 % (1.0-6.0); Hematocrit 47.4 % (37.0-46.0); Hemoglobin 14.8 g/dL (12.4-15.3); Immature Granulocyte Absolute 0.03 K/mm3 (0.00-0.00); Immature Granulocyte Percent A 0.3 % (0.0-0.0); Lymphocytes Absolute Auto 4.18 K/mm3 (1.10-4.50); Lymphocytes Percent Auto 46.4 % (18.0-42.0); Mean Corpuscular HGB Conc 31.2 g/dL (32.0-36.0); Mean Corpuscular Hemoglobin 27.7 pg (27.0-31.0); Mean Corpuscular Volume 88.8 fL (78.0-102.0); Mean Platelet Volume 10.3 fl (8.7-11.0); Monocytes Percent Auto 7.8 % (2.0-11.0); Neutrophils Absolute Auto 3.7 K/mm3 (1.7-7.2); Neutrophils Percent Auto 41.3 % (50.0-70.0); Platelet Count Result 173 K/mm3 (150-420); Red Blood Count 5.34 M/mm3 (4.70-6.10); Red Cell Distribution Width 14.6 % (11.6-14.4)
[2022-05-06 09:26] LABS: Alanine Aminotransferase 35 U/L (16-63); Albumin Level 3.9 g/dL (3.4-5.0); Alkaline Phosphatase 96 U/L (46-116); Anion Gap 8 mmol/L (8-16); Aspartate Amino Transferase 30 U/L (15-37); Bilirubin,Total 0.5 mg/dL (0.00-1.00); Blood Urea Nitrogen 32 mg/dL (7-18); Calcium 9.5 mg/dL (8.5-10.1); Carbon Dioxide 29 mmol/L (21-32); Chloride 103 mmol/L (98-108); Cholesterol 219 mg/dL (0-200); Estimated Glomerular Filt Rate 44; Glucose 152 mg/dL (70-99); HDL Direct 45 mg/dL (40-60); LDL Cholesterol Calculated 110 mg/dL (<130); Osmolality Calculated 299 mOsm/kg (285-295); Potassium 4.2 mmol/L (3.5-5.1); Sodium 140 mmol/L (136-145); Total Protein 7.2 g/dL (6.4-8.2); Triglycerides 321 mg/dL (0-150)
== END 2022-05-06 08:44 | disposition home or self-care (01) ==
LOC: CHSLAB 08:45
PROVIDERS: PCP Internal Medicine; Visit Provider Internal Medicine
DX: E78.5 Hyperlipidemia, unspecified (principal); E11.9 Type 2 diabetes mellitus without complications
CPT/HCPCS: 36415; 80053; 80061; 83036; 85025

== ENCOUNTER 2022-05-07 08:44 | Outpatient (CLI) | payer MEDICARE, SELFPAY ==
--- NOTE | ~2022-05-07 | US_ITS ---
EXAMINATION: US renal BI DATE: 05/07/2022 10:05 INDICATION: Abnormal kidney function TECHNIQUE: Multiple grayscale and Doppler ultrasound images of the kidneys were obtained. COMPARISON: None. FINDINGS: The right kidney measures 10.0 x 5.2 x 5.9 cm and contains a 1.4 cm cyst. The left kidney m easures 12.2 x 6.7 x 5.6 cm and contains cysts measuring up to 5.0 cm. The kidneys demonstrate normal parenchymal echogenicity. There is no hydronephrosis. The bladder is incompletely distended but othe rwise normal in appearance. IMPRESSION: 1. Bilateral renal cysts, otherwise normal kidneys without hydronephrosis. Reviewed, dictated and finalized at location B.
== END 2022-05-07 08:45 | disposition home or self-care (01) ==
LOC: CHSIMG 08:46
PROVIDERS: PCP Internal Medicine; Visit Provider Internal Medicine
DX: R94.4 Abnormal results of kidney function studies (principal)
CPT/HCPCS: 76775

== ENCOUNTER 2022-12-15 11:46 | Outpatient (CLI) | payer MEDICARE, SELFPAY ==
--- NOTE | ~2022-12-15 | XR_ITS ---
EXAMINATION: XR abdomen/kub 1V INDICATION: Calculus of the kidney TECHNIQUE: Supine views of the abdomen were obtained on 2 radiographs. COMPARISON: 11/25/2021 FINDINGS: Stones of the left kidney measure up to 7 mm. No definite stones are identified in the righ t kidney. A moderate volume of colonic stool is present. A bifurcated aortobiiliac stent is noted. Th ere are changes of left hip arthroplasty. The visualized lung bases are clear. Changes of cardiac marietta ve repair are noted. IMPRESSION: 1. Stable left nephrolithiasis. Reviewed, dictated and finalized at location B.
[2022-12-15 12:12] LABS: Basophils Absolute Auto 0.06 K/mm3 (0.00-0.10); Basophils Percent Auto 0.7 % (0.0-1.0); Eosinophils Absolute Auto 0.27 K/mm3 (0.02-0.50); Eosinophils Percent Auto 3.3 % (1.0-6.0); Hematocrit 47.7 % (37.0-46.0); Hemoglobin 14.9 g/dL (12.4-15.3); Immature Granulocyte Absolute 0.03 K/mm3 (0.00-0.00); Immature Granulocyte Percent A 0.4 % (0.0-0.0); Lymphocytes Absolute Auto 2.82 K/mm3 (1.10-4.50); Lymphocytes Percent Auto 34.9 % (18.0-42.0); Mean Corpuscular HGB Conc 31.2 g/dL (32.0-36.0); Mean Corpuscular Hemoglobin 28.4 pg (27.0-31.0); Mean Corpuscular Volume 90.9 fL (78.0-102.0); Mean Platelet Volume 10.5 fl (8.7-11.0); Monocytes Absolute Auto 0.68 K/mm3 (0.10-0.90); Monocytes Percent Auto 8.4 % (2.0-11.0); Neutrophils Absolute Auto 4.2 K/mm3 (1.7-7.2); Neutrophils Percent Auto 52.3 % (50.0-70.0); Platelet Count Result 162 K/mm3 (150-420); Red Blood Count 5.25 M/mm3 (4.70-6.10); Red Cell Distribution Width 13.8 % (11.6-14.4); White Blood Count 8.1 K/mm3 (4.8-10.8)
[2022-12-15 12:20] LABS: Hemoglobin A1C 7.2 % (<5.7)
[2022-12-15 12:55] LABS: Alanine Aminotransferase 30 U/L (16-63); Albumin Level 3.8 g/dL (3.4-5.0); Alkaline Phosphatase 106 U/L (46-116); Anion Gap 6 mmol/L (8-16); Aspartate Amino Transferase 34 U/L (15-37); Bilirubin,Total 0.5 mg/dL (0.00-1.00); Blood Urea Nitrogen 27 mg/dL (7-18); Carbon Dioxide 33 mmol/L (21-32); Chloride 104 mmol/L (98-108); Cholesterol 222 mg/dL (0-200); Estimated Glomerular Filt Rate 49; Glucose 152 mg/dL (70-99); HDL Direct 45 mg/dL (40-60); LDL Cholesterol Calculated 117 mg/dL (<130); Osmolality Calculated 304 mOsm/kg (285-295); Potassium 4.5 mmol/L (3.5-5.1); Sodium 143 mmol/L (136-145); Total Protein 7.5 g/dL (6.4-8.2); Triglycerides 302 mg/dL (0-150)
== END 2022-12-15 11:47 | disposition home or self-care (01) ==
PROVIDERS: PCP Internal Medicine; Visit Provider Internal Medicine Nephrology
DX: N20.0 Calculus of kidney (principal); E78.5 Hyperlipidemia, unspecified; E11.9 Type 2 diabetes mellitus without complications
CPT/HCPCS: 36415; 74018; 80053; 80061; 83036; 85025

== ENCOUNTER 2023-01-26 12:53 | Observation (INO) | payer MEDICARE, SELFPAY ==
[2023-01-26] VITALS (34 sets, daily range): BP systolic 100–133; BP diastolic 48–79; PULSE 55–74; RESP 10–22; TEMP 36.6–36.7; O2SAT 92–99; BMI 33.5
--- NOTE | ~2023-01-26 | XR_ITS ---
XR chest 1V portable DATE: 01/26/2023 13:57 INDICATION: Weakness TECHNIQUE: Portable upright AP chest on 01/26/2023 at 1352 hours COMPARISON: PA and lateral chest on 01/22/2022 FINDINGS: The lung bases are not entirely included in this is single portable AP view. There is mild infiltrate or atelectasis at both lung bases since 01/22/2022. The lungs otherwise appear clear. Status post sternotomy and mitral valve replacement. Heart size appears within normal range. There is aortic arch calcification, aortic unfolding. No hilar or mediastinal enlargement. No pulmonary vascu lar congestion. Bilateral apical capping, right greater than left. IMPRESSION: Mild infiltrate or atelectasis at the lung bases Reviewed, dictated and finalized at location []
[2023-01-26 13:04] LABS: Glucose Point of Care 190 mg/dl (65-105)
--- NOTE | 2023-01-26 13:36 | ECG_ITS ---
Measurements Intervals [place] Rate: 64 P: 56 GA: 190 QRS: 89 QRSD: 122 T: 92 QT: 431 QTc: 445 Interpretive Statements SINUS RHYTHM WITH OCCASIONAL SUPRAVENTRICULAR PREMATURE COMPLEXES RIGHT BUNDLE BRANCH BLOCK [120+ ms QRS DURATION, UPRIGHT V1, 40+ ms S IN I/aVL/V4/V5/V6] NO PREVIOUS ECG AVAILABLE FOR COMPARISON Electronically Signed On 01-27-2023 16:19:24 CDT by Gordy Rivera M.D.
--- NOTE | 2023-01-26 13:38 | ED.GENADULT ---
HPI - General Adult General Chief complaint: Weakness Stated complaint: poor appetite x 2 days; sweating and dry heaves Time Seen by Provider: 01/26/23 13:24 History of Present Illness HPI narrative: The patient is a 78-year-old male with history of dementia, COPD, chronic kidney disease, osteoarthritis, hypertension, hyperlipidemia, diabetes, depression. For the last 48 hours, the patient has had decreased oral intake, which started on 01/24/2023 in the evening with dry heaves and then has had decreased oral intake subsequent to that yesterday and today. No nausea or vomiting currently. Feels very weak and tired per himself and his family. Denies any abdominal pain or diarrhea or constipation. No cough rhinorrhea nasal congestion or URI or UTI symptoms. No other complaints. No headache. No dizziness or blurred vision. Related Data Home Medications Medication Instructions Recorded Confirmed memantine 10 mg tablet (Namenda) 10 mg PO BID 07/13/19 01/26/23 rosuvastatin 20 mg tablet 20 mg PO DAILY 07/13/19 01/26/23 albuterol sulfate 90 mcg/actuation 1 puff inhalation Q4H PRN 01/14/22 01/26/23 aerosol inhaler Shortness Of Breath aspirin 81 mg tablet,delayed 81 mg PO DAILY 01/14/22 01/26/23 release donepezil 10 mg tablet 10 mg PO QHS 01/14/22 01/26/23 metoprolol succinate 50 mg 50 mg PO DAILY 01/14/22 01/26/23 tablet,extended release 24 hr multivit with min-folic 1 tablet PO DAILY 01/14/22 01/26/23 acid-lutein 400 mcg-250 mcg chewable tablet (Centrum Silver) potassium chloride 20 mEq 10 meq PO TID 01/14/22 01/26/23 tablet,extended release(part/cryst) citalopram 20 mg tablet 20 mg PO DAILY 01/07/23 01/26/23 loratadine 10 mg capsule 10 mg PO DIRECTED 01/26/23 01/26/23 magnesium oxide 400 mg (241.3 mg 400 mg PO BID 01/26/23 01/26/23 magnesium) tablet Allergies Allergy/AdvReac Type Severity Reaction Status Date / Time lorazepam Allergy Intermediate hives Verified 01/26/23 13:17 Review of Systems Review of Systems: All systems reviewed & are unremarkable except as noted in HPI and below Constitutional: Constitutional: Denies chills, Denies excessive sweating, Reports fatigue, Denies fever(s), Denies headache(s) and Reports weakness Eyes: Eyes: Denies change in vision and Denies photophobia ENT: Denies dysphagia, Denies dizziness, Denies headache(s), Denies lip swelling, Denies nasal congestion, Denies sore throat and Denies tongue swelling Cardiovascular: Cardiovascular: Denies chest pain, Denies syncope, Denies rapid heart rate and Denies dyspnea Respiratory: Respiratory: Denies cough, Denies dyspnea and Denies wheezing Gastrointestinal: Gastrointestinal: Denies abdominal pain, Denies constipation, Denies dysphagia, Denies diarrhea, Denies nausea and Denies vomiting Comments: Dry heaves 2 days ago with no nausea vomiting yesterday or today Genitourinary: Genitourinary: Denies hematuria, Denies dysuria, Denies urinary frequency and Denies urinary urgency Musculoskeletal: Musculoskeletal: Denies back pain, Denies myalgias, Denies arthralgias, Denies joint swelling and Denies numbness Integumentary/Breasts: Skin/Breast: Denies pruritus, Denies erythema and Denies rash Neurologic: Reports confusion ( at baseline from dementia), Denies dizziness, Denies syncope, Denies headache(s), Denies focal weakness, Denies numbness and Reports weakness ( generalized) Psychiatric: Psychiatric: Denies anxiety Endocrine: Endocrine: Denies excessive sweating and Reports fatigue Hematologic/Lymphatic: Hematologic/Lymphatic: Denies easy bleeding and Denies easy bruising Allergic/Immunologic: Allergic/Immunologic: Denies lip swelling, Denies tongue swelling and Denies wheezing PMFSH Past Medical History Medical History (Updated 01/26/23 @ 17:03 by Braden Poon MD) COPD (chronic obstructive pulmonary disease) Dementia Depression DM2 (diabetes mellitus, type 2) Hyperlipidemia Hypertension ADIS (obs
[2023-01-26 13:52] LABS: Basophils Absolute Auto 0.03 K/mm3 (0.00-0.10); Basophils Percent Auto 0.2 % (0.0-1.0); Hemoglobin 14.5 g/dL (12.4-15.3); Immature Granulocyte Absolute 0.08 K/mm3 (0.00-0.00); Immature Granulocyte Percent A 0.5 % (0.0-0.0); Lymphocytes Absolute Auto 1.47 K/mm3 (1.10-4.50); Lymphocytes Percent Auto 9.2 % (18.0-42.0); Mean Corpuscular HGB Conc 32.2 g/dL (32.0-36.0); Mean Corpuscular Hemoglobin 28.9 pg (27.0-31.0); Mean Corpuscular Volume 89.6 fL (78.0-102.0); Mean Platelet Volume 10.2 fl (8.7-11.0); Monocytes Percent Auto 8.2 % (2.0-11.0); Neutrophils Absolute Auto 13.1 K/mm3 (1.7-7.2); Neutrophils Percent Auto 81.9 % (50.0-70.0); Platelet Count Result 118 K/mm3 (150-420); Red Blood Count 5.02 M/mm3 (4.70-6.10); White Blood Count 15.9 K/mm3 (4.8-10.8)
[2023-01-26] MEDS: SODIUM CHLORIDE 0.9% IV 1,000 ML 999 ML IV CONT ×2 (14:01→14:32)
[2023-01-26 14:11] LABS: Lactic Acid Reflex 1.8 mmol/L (0.4-2.0)
[2023-01-26 14:15] LABS: Alanine Aminotransferase 26 U/L (16-63); Alkaline Phosphatase 72 U/L (46-116); Amylase 32 U/L (25-115); Anion Gap 9 mmol/L (8-16); Aspartate Amino Transferase 18 U/L (15-37); Bilirubin,Total 0.9 mg/dL (0.00-1.00); Blood Urea Nitrogen 31 mg/dL (7-18); Calcium 9.3 mg/dL (8.5-10.1); Carbon Dioxide 29 mmol/L (21-32); Chloride 98 mmol/L (98-108); Creatine Kinase 52 U/L (39-308); Estimated CRCL calculation 41 ml/min; Estimated Glomerular Filt Rate 37; Glucose 179 mg/dL (70-99); Lipase 30 U/L (16-77); NT Pro B Type Natriuretic Pept 986 pg/mL (0-450); Osmolality Calculated 292 mOsm/kg (285-295); Potassium 4.2 mmol/L (3.5-5.1); Sodium 136 mmol/L (136-145); Total Protein 7.2 g/dL (6.4-8.2); Troponin I 17.9 ng/L (0.00-60.4)
[2023-01-26 14:17] LABS: Ethanol < 3 mg/dL (0-6)
--- NOTE | 2023-01-26 15:15 | PC.NURSE ---
Pt stood at bedside with this RN and CHARLES Bean assisting. Pt voided approx 150 mL cloudy, dark-yellow urine for specimen. Yellow urine noted to incontinence garment. Cintia care performed and dry diaper applied.
[2023-01-26 15:21] LABS: Appearance Urine Cloudy (Clear); Bilirubin Urine Negative (Negative); Blood Urine 3+ (Negative); Color Urine Yellow (Yellow); Glucose Urine UA Negative (Negative); Ketones Urine Negative (Negative); Leukocyte Esterase Ur 3+ LEU/UL (Negative); Nitrate Urine Negative (Negative); Protein Urine 1+ (Negative)
[2023-01-26 15:27] LABS: Amphetamine Screen Urine Negative (Negative); Barbiturate Screen Urine Negative (Negative); Benzodiazepines Screen Urine Negative (Negative); Cannabinoid Screen Urine Negative (Negative); Cocaine Screen Urine Negative (Negative); Methadone Screen Urine Negative (Negative); Opiate Screen Urine Negative (Negative); Phencyclidine Screen Urine Negative (Negative)
[2023-01-26 15:30] LABS: Add Urine Microscopic? YES; Bacteria Urine 3+ /hpf; Squamous Epithelial Cell Urine Rare /hpf (Few); WBC Urine >75 /hpf (0-3)
--- NOTE | 2023-01-26 15:41 | PC.NURSE ---
IV fluids remain infusing. Family returns to bedside. Labs complete, ERP aware.
[2023-01-26] MEDS: cefTRIAXone 2 GM/NS 100 ML 2 GM/100 ML BAG IVPB (16:07)
--- NOTE | 2023-01-26 16:50 | PC.NURSE ---
Called floor for admission no answer.
--- NOTE | 2023-01-26 16:58 | PC.NURSE ---
Second call placed to 2nd medical with no answer.
--- NOTE | 2023-01-26 17:04 | PC.NURSE ---
Walked to floor to find RN for bed assignment. Lisa chargemaster specialist, [facility] will call with bed.
--- NOTE | 2023-01-26 17:06 | PC.NURSE ---
Bed assignment received room 206.
[2023-01-26] MEDS: SODIUM CHLORIDE 0.9% IV 1,000 ML 100 ML IV CONT (18:04)
--- NOTE | 2023-01-26 18:29 | ADMGEN ---
1740 This patient, Rodriguez Coleman, was admitted to 2nd Floor Room 206 as an OBS with dx of UTI and weakness. Patient oriented to hospital policies and general routines including ID bracelet, bed and alarms, visiting hours, pain management, procedures, bathroom and other care routines, personal items, smoking policy, room service/diet, and visiting hours. Information on how to activate the Rapid Response Team has been discussed. Patient/Family are encouraged to report perceived risks to care and to ask questions if they do not understand what they are told or what they should do.
[2023-01-26] MEDS: DONEPEZIL HCL 5 MG TABLET 10 MG PO (20:17)
[2023-01-26] MEDS: MEMANTINE 5 MG TABLET 10 MG PO (20:17)
[2023-01-26] MEDS: POTASSIUM CHLORIDE 10 MEQ TABLET PO (20:18)
[2023-01-26] MEDS: FUROSEMIDE 40 MG TABLET PO (20:18)
[2023-01-27] VITALS: BP 110/51; PULSE 61; RESP 18; TEMP 37.3; O2SAT 98
--- NOTE | 2023-01-27 03:50 | PC.NURSE ---
On 01/27/23, the FUNERAL DIRECTOR, [Gabriela Jose ], provided care and completed [facility] documentation on this patient. I have reviewed the FUNERAL DIRECTOR's documentation and agree with the findings.
[2023-01-27] MEDS: ACETAMINOPHEN 325 MG TABLET 650 MG PO (05:02)
[2023-01-27 05:12] LABS: Basophils Absolute Auto 0.04 K/mm3 (0.00-0.10); Basophils Percent Auto 0.3 % (0.0-1.0); Eosinophils Absolute Auto 0.03 K/mm3 (0.02-0.50); Eosinophils Percent Auto 0.3 % (1.0-6.0); Hematocrit 40.5 % (37.0-46.0); Hemoglobin 12.6 g/dL (12.4-15.3); Immature Granulocyte Percent A 0.9 % (0.0-0.0); Lymphocytes Absolute Auto 1.58 K/mm3 (1.10-4.50); Lymphocytes Percent Auto 13.5 % (18.0-42.0); Mean Corpuscular HGB Conc 31.1 g/dL (32.0-36.0); Mean Corpuscular Hemoglobin 28.5 pg (27.0-31.0); Mean Corpuscular Volume 91.6 fL (78.0-102.0); Mean Platelet Volume 10.5 fl (8.7-11.0); Monocytes Absolute Auto 0.92 K/mm3 (0.10-0.90); Monocytes Percent Auto 7.9 % (2.0-11.0); Neutrophils Percent Auto 77.1 % (50.0-70.0); Platelet Count Result 105 K/mm3 (150-420); Red Blood Count 4.42 M/mm3 (4.70-6.10); White Blood Count 11.7 K/mm3 (4.8-10.8)
[2023-01-27 05:27] LABS: Anion Gap 9 mmol/L (8-16); Blood Urea Nitrogen 26 mg/dL (7-18); Calcium 8.7 mg/dL (8.5-10.1); Carbon Dioxide 28 mmol/L (21-32); Chloride 104 mmol/L (98-108); Estimated CRCL calculation 50 ml/min; Estimated Glomerular Filt Rate 46; Glucose 131 mg/dL (70-99); Osmolality Calculated 298 mOsm/kg (285-295); Potassium 3.8 mmol/L (3.5-5.1); Sodium 141 mmol/L (136-145)
[2023-01-27 07:45] VITALS: BP 113/59; PULSE 60; RESP 18; TEMP 35.9; O2SAT 95
[2023-01-27] MEDS: FUROSEMIDE 40 MG TABLET PO (08:53)
[2023-01-27] MEDS: ENOXAPARIN 40 MG/0.4 ML SYRINGE SUB-Q (08:53)
[2023-01-27] MEDS: POTASSIUM CHLORIDE 10 MEQ TABLET PO (08:53)
[2023-01-27] MEDS: MEMANTINE 5 MG TABLET 10 MG PO (08:53)
[2023-01-27 08:54] VITALS: PULSE 60
[2023-01-27] MEDS: CITALOPRAM HYDROBROMIDE 20 MG TABLET PO (08:54)
[2023-01-27] MEDS: METOPROLOL SUCCINATE EXT REL 50 MG TABCR PO (08:54)
[2023-01-27] MEDS: LORATADINE 10 MG TABLET PO (08:54)
[2023-01-27] MEDS: ROSUVASTATIN 10 MG TABLET 20 MG PO (08:54)
[2023-01-27] MEDS: ASPIRIN 81 MG ENTERIC TABLET PO (08:54)
--- NOTE | 2023-01-27 10:32 | PM.SD2 ---
Same Day Admit/Disch: HPI History of Present Illness Chief complaint: UTI WEAKNESS Narrative: Rodriguez Coleman is a 78 year old male ? The patient is a 78-year-old male with history of dementia, COPD, chronic kidney disease, osteoarthritis, hypertension, hyperlipidemia, diabetes, depression.? For the last 48 hours, the patient has had decreased oral intake, which started on 01/24/2023 in the evening with dry heaves and then has had decreased oral intake subsequent to that yesterday and today.? No nausea or vomiting currently.? Feels very weak and tired per himself and his family.? Denies any abdominal pain or? diarrhea or constipation.? No cough rhinorrhea nasal congestion or URI or UTI symptoms.? No other complaints.? No headache.? No dizziness or blurred vision. [facility] Past Medical History Medical History (Updated 01/26/23 @ 17:03 by Braden Poon MD) COPD (chronic obstructive pulmonary disease) Dementia Depression DM2 (diabetes mellitus, type 2) Hyperlipidemia Hypertension ADIS (obstructive sleep apnea) Overweight Surgical History Surgical History History of hernia repair History of mitral valve repair 2014. [facility] Hx of cataract surgery Right Eye Family History Family History Father , Age 86 Acute myocardial infarction Dementia Mother , Age 83 No problems noted. Other Family history of cardiovascular disease Social History Social History Smoking status: Never smoker Second hand tobacco smoke exposure: Yes Alcohol intake: never Substance use: never Lack of Transportation: No Lack of Food: Never True Current Housing: I Have Housing Concerned About Future Housing: No Difficulty Paying Gas/Electric Bills: No Difficulty Paying for Meds: No Currently Unemployed: No Education: Decline to Answer Difficulty w/ Childcare or Family Care: No Living arrangements: with family Additional living arrangements comments: Occupation/Education: retired Gender identity (if verbalized by the patient): Male Spiritual care concerns: No Comments At time as signature, I have reviewed and agree with nursing past medical, social, surgical and family history. Please see nursing chart for further information. There is no relevant family history pertinent to the presenting complaint. Same Day Admit/Disch: Med Pre-admit Medications Home Medications Medication Instructions Recorded Confirmed Type memantine 10 mg tablet (Namenda) 10 mg PO BID 07/13/19 01/26/23 History rosuvastatin 20 mg tablet 20 mg PO DAILY 07/13/19 01/26/23 History furosemide 40 mg tablet 40 mg PO BID #60 tabs 07/23/19 01/26/23 Rx albuterol sulfate 90 mcg/actuation 1 puff inhalation Q4H PRN 01/14/22 01/26/23 History aerosol inhaler Shortness Of Breath aspirin 81 mg tablet,delayed 81 mg PO DAILY 01/14/22 01/26/23 History release donepezil 10 mg tablet 10 mg PO QHS 01/14/22 01/26/23 History metoprolol succinate 50 mg 50 mg PO DAILY 01/14/22 01/26/23 History tablet,extended release 24 hr multivit with min-folic 1 tablet PO DAILY 01/14/22 01/26/23 History acid-lutein 400 mcg-250 mcg chewable tablet (Centrum Silver) potassium chloride 20 mEq 10 meq PO TID 01/14/22 01/26/23 History tablet,extended release(part/cryst) Anoro Ellipta 62.5 mcg-25 1 inh inhalation Q24H #60 ea 11/12/22 01/26/23 Rx mcg/actuation powder for inhalation (umeclidinium-vilanterol) citalopram 20 mg tablet 20 mg PO DAILY 01/07/23 01/26/23 History loratadine 10 mg capsule 10 mg PO DIRECTED 01/26/23 01/26/23 History magnesium oxide 400 mg (241.3 mg 400 mg PO BID 01/26/23 01/26/23 History magnesium) tablet ondansetron 4 mg disintegrating 4 mg PO Q8H PRN nausea and 01/27/23 Rx tablet vomiting #7 tabs sulfamethoxazo
--- NOTE | 2023-01-27 11:40 | PC.NURSE ---
Katharine discharging home. All discharge instructions reviewed with patient and . Both parties state understanding. IV site removed, tip intact. Dressing applied to site. All belongings gathered and sent home with patient. No questions at time of discharge. This nurse accompanied patient to front door via wheelchair, patient left via private vehicle with .
--- NOTE | 2023-01-28 09:54 | PC.NURSE ---
Spouse states they received and understood the discharge instructions. Spouse also states the nursing staff was very good .
--- NOTE | 2023-01-28 14:46 | PC.NURSE ---
Culture report received with sensitivity, Raul Castellanos contacted and will call med in to greta RAMÍREZ stop trimethoprim/sulfa and change to amox/clavulanate, contacted
== END 2023-01-27 11:40 | disposition home or self-care (01) ==
LOC: CHSED 17:03 → CHS2ND 17:09
PROVIDERS: Admitting Provider Internal Medicine; Emergency Provider Emergency Medicine; PCP Internal Medicine; Visit Provider Nurse Practitioner Family
DX: N39.0 Urinary tract infection, site not specified (principal); E86.0 Dehydration; J44.9 Chronic obstructive pulmonary disease, unspecified; I12.9 Hypertensive chronic kidney disease with stage 1 through stage 4 chronic kidney disease, or unspecified chronic kidney disease; N18.31 Chronic kidney disease, stage 3a; E11.22 Type 2 diabetes mellitus with diabetic chronic kidney disease; E78.5 Hyperlipidemia, unspecified; G47.33 Obstructive sleep apnea (adult) (pediatric); F03.90 Unspecified dementia, unspecified severity, without behavioral disturbance, psychotic disturbance, mood disturbance, and anxiety; F32.A Depression, unspecified; Z79.82 Long term (current) use of aspirin; Z79.899 Other long term (current) drug therapy
CPT/HCPCS: 36415; 71045; 80048; 80053; 80307; 81001; 82150; 82550; 82948; 83605; 83690; 83735; 83880; 84484; 85025; 87077; 87086; 87088; 87186; 93005; 96361; 96372; 96374; 97161; 99285; A9270; G0378; J0696; J1650; J7030

== ENCOUNTER 2023-02-18 09:04 | Outpatient (CLI) | payer MEDICARE, SELFPAY ==
--- NOTE | ~2023-02-18 | US_ITS ---
Renal-Bladder ultrasound Clinical History: Renal cyst Technique: Real-time sonographic imaging of the kidneys and urinary bladder was performed. Findings: The right kidney measures 9.5 cm in length and the left kidney measures 8.5 cm. There is no hydronephrosis or renal calculus identified. Renal cortical echogenicity is within normal limits. Bi lateral renal cysts are present, largest at the left upper pole measuring 4.1 cm in diameter. The urinary bladder is partially distended at the time of this exam. No intraluminal echoes are ident ified. No abnormal wall thickening is seen. Impression: Bilateral renal cysts, as noted above. Reviewed, dictated and finalized at location . Impression: Bilateral renal cysts, as noted above.
== END 2023-02-18 09:05 | disposition home or self-care (01) ==
LOC: CHSIMG 09:06
PROVIDERS: PCP Internal Medicine; Visit Provider Urology
DX: N28.1 Cyst of kidney, acquired (principal)
CPT/HCPCS: 76770

== ENCOUNTER 2023-05-01 18:09 | Inpatient (IN) | payer MEDICARE, SELFPAY ==
[2023-05-01] VITALS (8 sets, daily range): BP systolic 98–118; BP diastolic 67–82; PULSE 114–122; RESP 15–18; TEMP 36.6; O2SAT 97–98; BMI 32.4
--- NOTE | ~2023-05-01 | US_ITS ---
EXAMINATION:US venous doppler LE BI INDICATION:Leg swelling TECHNIQUE: Multiple grayscale, color flow and Doppler images of the right and left lower extremity de ep venous systems were obtained and reviewed. COMPARISON:10/30/2020 FINDINGS: The common femoral, superficial femoral and popliteal veins demonstrate normal respiratory variation, augmentation and compressibility. Color flow is also seen within the posterior tibial, pe roneal, greater saphenous and profunda veins. IMPRESSION: 1: No lower extremity deep venous thrombosis. Reviewed, dictated and finalized at location B.
--- NOTE | ~2023-05-01 | XR_ITS ---
EXAMINATION: XR chest 2V Exam Date/Time: 05/01/2023 18:48 CDT HISTORY: increased HR x 1 hour today hx COPD,HTN,MVR 2014, CABG Comparison: 01/26/2023. RESULT: Lines, tubes, and devices: Cardiac valve replacement. Fractured sternotomy wire that remains in stab le position.. Lungs and pleura: Senescent change, otherwise clear. Cardiomediastinal silhouette: Stable. Other: No acute osseous or upper abdominal finding. IMPRESSION: No acute cardiopulmonary process. Reviewed, dictated and finalized at location K.
--- NOTE | ~2023-05-01 | US_ITS ---
EXAMINATION: US renal BI DATE: 05/02/2023 10:15 INDICATION: Acute on chronic kidney disease. Urinary incontinence. TECHNIQUE: Multiple ultrasound grayscale images of the kidneys were obtained. COMPARISON: Ultrasound 02/18/2023 FINDINGS: The right kidney measures 9.3 x 4.4 x 5.3 cm. The left kidney measures 12.8 x 4.9 x 6.8 cm. The kidne ys demonstrate normal parenchymal echogenicity. There is no hydronephrosis. Again seen are cysts in t he kidneys measuring up to 5.0 cm on the left. The bladder is normal. There is diffuse hepatic steato sis. IMPRESSION: 1. Normal kidney sizes. No hydronephrosis. Reviewed, dictated and finalized at location A.
--- NOTE | 2023-05-01 18:12 | ECG_ITS ---
Measurements Intervals [place] Rate: 122 P: -86 [place]: 145 QRS: 149 QRSD: 123 T: 0 QT: 193 QTc: 275 Interpretive Statements ATRIAL FLUTTER/TACHYCARDIA WITH RAPID VENTRICLAR RESPONSE RIGHT BUNDLE BRANCH BLOCK LEFT POSTERIOR FASCICULAR BLOCK ABNORMAL ECG COMPARED TO ECG 01/26/2023 14:04:26 ATRIAL FLUTTER/TACHYCARDIA NOW PRESENT LEFT POSTERIOR FASCICULAR BLOCK NOW PRESENT Electronically Signed On 05-01-2023 19:48:58 CDT by Jose J Zapata D.O.
--- NOTE | 2023-05-01 18:28 | ED.GENADULT ---
HPI - General Adult General Chief complaint: Arrhythmia/Palpitations Stated complaint: rapid heart rate Time Seen by Provider: 05/01/23 18:26 Source: patient and family Mode of arrival: ambulatory Limitations: no limitations History of Present Illness HPI narrative: patient is 78-year-old white male brought in by his mother and daughter he was outside and for few minutes he said he felt hot like his throat was pounding his heart rate was 122 on his Fitbit this lasted for few minutes and then resolved. Family brought in for evaluation otherwise he denies any pain shortness of breath diaphoresis cough fever sore throat runny nose problems eating drinking voiding or stooling except that he is incontinent. He has had multiple UTIs. Denies any rash or itching bleeding or bruising weakness or numbness problems walking talking or seeing denies any other complaints. Past medical history mitral valve repair repair kidney stones urinary continence UTIs AAA repair year and half ago hip replacement. hyperlipidemia, COPD, dementia diabetes Related Data Home Medications Medication Instructions Recorded Confirmed memantine 10 mg tablet (Namenda) 10 mg PO BID 07/13/19 05/01/23 rosuvastatin 20 mg tablet 20 mg PO DAILY 07/13/19 05/01/23 albuterol sulfate 90 mcg/actuation 1 puff inhalation Q4H PRN 01/14/22 05/01/23 aerosol inhaler Shortness Of Breath aspirin 81 mg tablet,delayed 81 mg PO DAILY 01/14/22 05/01/23 release donepezil 10 mg tablet 10 mg PO QHS 01/14/22 05/01/23 metoprolol succinate 50 mg 50 mg PO DAILY 01/14/22 05/01/23 tablet,extended release 24 hr multivit with min-folic 1 tablet PO DAILY 01/14/22 05/01/23 acid-lutein 400 mcg-250 mcg chewable tablet (Centrum Silver) citalopram 20 mg tablet 10 mg PO DAILY 01/07/23 05/01/23 magnesium oxide 400 mg (241.3 mg 400 mg PO BID 01/26/23 05/01/23 magnesium) tablet potassium citrate 10 mEq (1,080 10 meq PO TID 05/01/23 05/01/23 mg) tablet,extended release semaglutide 3 mg tablet (Rybelsus) 3 mg PO DAILY 09/10/23 09/10/23 Allergies Allergy/AdvReac Type Severity Reaction Status Date / Time No Known Allergies Allergy Verified 05/01/23 18:14 Review of Systems Review of Systems: All systems reviewed & are unremarkable except as noted in HPI and below PMFSH Past Medical History Medical History (Updated 05/01/23 @ 20:25 by Richard Arevalo MD) COPD (chronic obstructive pulmonary disease) Dementia Depression DM2 (diabetes mellitus, type 2) Hyperlipidemia Hypertension ADIS (obstructive sleep apnea) Overweight Surgical History Surgical History History of hernia repair History of mitral valve repair 2014. [facility] Hx of cataract surgery Right Eye Family History Family History Father , Age 86 Acute myocardial infarction Dementia Mother , Age 83 No problems noted. Other Family history of cardiovascular disease Social History Social History Smoking status: Never smoker Second hand tobacco smoke exposure: Yes Alcohol intake: never Substance use: never Lack of Transportation: No Lack of Food: Never True Current Housing: I Have Housing Concerned About Future Housing: No Difficulty Paying Gas/Electric Bills: No Difficulty Paying for Meds: No Currently Unemployed: No Education: Decline to Answer Difficulty w/ Childcare or Family Care: No Living arrangements: with family Additional living arrangements comments: Occupation/Education: retired Gender identity (if verbalized by the patient): Male Spiritual care concerns: No Exam Narrative: White Male patient no apparent distress.? Head normocephalic, atraumatic.? Eyes conjunctiva pink sclera nonicteric.? Extraocular movements are intact.? Ear
[2023-05-01 18:49] LABS: Hematocrit 45.2 % (37.0-46.0); Hemoglobin 14.4 g/dL (12.4-15.3); Mean Corpuscular HGB Conc 31.9 g/dL (32.0-36.0); Mean Corpuscular Hemoglobin 28.8 pg (27.0-31.0); Mean Corpuscular Volume 90.4 fL (78.0-102.0); Mean Platelet Volume 10.7 fl (8.7-11.0); Platelet Count Result 164 K/mm3 (150-420); Red Cell Distribution Width 13.6 % (11.6-14.4); White Blood Count 8.4 K/mm3 (4.8-10.8)
[2023-05-01 19:01] LABS: INR 0.9; Partial Thromboplastin Time 25.5 SEC (23.90-30.70); Prothrombin Time 10.3 Seconds (9.50-12.10)
[2023-05-01 19:19] LABS: Alanine Aminotransferase 42 U/L (16-63); Albumin Level 3.3 g/dL (3.4-5.0); Alkaline Phosphatase 110 U/L (46-116); Anion Gap 4 mmol/L (8-16); Aspartate Amino Transferase 24 U/L (15-37); Bilirubin,Total 0.5 mg/dL (0.00-1.00); Blood Urea Nitrogen 29 mg/dL (7-18); Calcium 9.6 mg/dL (8.5-10.1); Carbon Dioxide 33 mmol/L (21-32); Chloride 103 mmol/L (98-108); Estimated CRCL calculation 36 ml/min; Estimated Glomerular Filt Rate 32; Glucose 157 mg/dL (70-99); Magnesium 2.2 mg/dL (1.8-2.4); Osmolality Calculated 298 mOsm/kg (285-295); Potassium 4.2 mmol/L (3.5-5.1); Sodium 140 mmol/L (136-145); Total Protein 7.1 g/dL (6.4-8.2); Troponin I 18.3 ng/L (0.00-60.4)
[2023-05-01] MEDS: SODIUM CHLORIDE 0.9% IV 1,000 ML 999 ML IV CONT (20:26)
[2023-05-01 21:29] LABS: Bilirubin Urine Negative (Negative); Blood Urine Negative (Negative); Color Urine Light Yellow (Yellow); Glucose Urine UA Negative (Negative); Ketones Urine Negative (Negative); Leukocyte Esterase Ur 2+ (Negative); Nitrate Urine Negative (Negative); Protein Urine Negative (Negative); Urobilinogen Urine 0.2 mg/dL (0.2-1.0)
[2023-05-01 21:37] LABS: Appearance Urine Cloudy (Clear)
[2023-05-01 21:38] LABS: Add Urine Microscopic? YES; Bacteria Urine 4+ /hpf
--- NOTE | 2023-05-01 22:51 | ADMGEN ---
This patient, Rodriguez Coleman, was admitted to 2nd Floor Room 207-1. Patient oriented to hospital policies and general routines including ID bracelet, bed and alarms, visiting hours, pain management, procedures, bathroom and other care routines, personal items, smoking policy, room service/diet, and visiting hours. Information on how to activate the Rapid Response Team has been discussed. Patient are encouraged to report perceived risks to care and to ask questions if they do not understand what they are told or what they should do.
[2023-05-01] MEDS: KCL 20MEQ/0.9% SOD CHL 1,000 ML 125 ML IV CONT (22:56)
[2023-05-02] VITALS (22 sets, daily range): BP systolic 85–129; BP diastolic 44–88; PULSE 79–122; RESP 14–18; TEMP 36.1–36.6; O2SAT 97–98
[2023-05-02 05:31] LABS: Basophils Absolute Auto 0.07 K/mm3 (0.00-0.10); Basophils Percent Auto 0.9 % (0.0-1.0); Eosinophils Absolute Auto 0.39 K/mm3 (0.02-0.50); Eosinophils Percent Auto 5.2 % (1.0-6.0); Hematocrit 45.2 % (37.0-46.0); Hemoglobin 14.3 g/dL (12.4-15.3); Immature Granulocyte Absolute 0.02 K/mm3 (0.00-0.00); Immature Granulocyte Percent A 0.3 % (0.0-0.0); Immature Platelet Fraction Pct 2.8 % (1.0-7.0); Lymphocytes Absolute Auto 2.74 K/mm3 (1.10-4.50); Lymphocytes Percent Auto 36.2 % (18.0-42.0); Mean Corpuscular HGB Conc 31.6 g/dL (32.0-36.0); Mean Corpuscular Hemoglobin 28.9 pg (27.0-31.0); Mean Corpuscular Volume 91.3 fL (78.0-102.0); Mean Platelet Volume 10.9 fl (8.7-11.0); Monocytes Absolute Auto 0.65 K/mm3 (0.10-0.90); Monocytes Percent Auto 8.6 % (2.0-11.0); Neutrophils Absolute Auto 3.7 K/mm3 (1.7-7.2); Neutrophils Percent Auto 48.8 % (50.0-70.0); Platelet Count Result 135 K/mm3 (150-420); Red Blood Count 4.95 M/mm3 (4.70-6.10); Red Cell Distribution Width 13.7 % (11.6-14.4); White Blood Count 7.6 K/mm3 (4.8-10.8)
[2023-05-02 05:32] LABS: Anion Gap 7 mmol/L (8-16); Blood Urea Nitrogen 26 mg/dL (7-18); Calcium 9.4 mg/dL (8.5-10.1); Carbon Dioxide 29 mmol/L (21-32); Chloride 107 mmol/L (98-108); Estimated CRCL calculation 44 ml/min; Estimated Glomerular Filt Rate 40; Glucose 130 mg/dL (70-99); Osmolality Calculated 302 mOsm/kg (285-295); Potassium 4.1 mmol/L (3.5-5.1); Sodium 143 mmol/L (136-145)
--- NOTE | 2023-05-02 06:26 | PC.NURSE ---
Dr. Arevalo notified of IV fluid finishing; New orders for 1000 ml NS at 125 ml/hr.
[2023-05-02] MEDS: SODIUM CHLORIDE 0.9% IV 1,000 ML 125 ML IV CONT ×3 (06:36→22:46)
--- NOTE | 2023-05-02 08:13 | PC.NURSE ---
SBA to bathroom to void, gait steady with use of cane, tolerated well, to chair for breakfast
--- NOTE | 2023-05-02 08:57 | PM.IMHP ---
H&P: HPI History of Present Illness Date/Time: 05/02/23 08:57 Chief Complaint: palpitations Narrative: 78-year-old male patient with a past history of diabetes, COPD, hypertension, hyperlipidemia, depression, dementia and obstructive sleep apnea who was admitted to the hospital for monitoring after complaints of palpitations and findings concerning for dehydration and acute kidney injury. Patient has a baseline serum creatinine approximately 1.5 and was found to have creatinine over 2 on admission. At the time of coming to the hospital patient was complaining of palpitations and feeling hot all over. This morning patient does not remember reason for presentation to the hospital. He appears to be very poor historian related to his dementia. Patient states that he lives at home with his . Specifically patient denies chest pain, palpitations, shortness of breath, cough, wheezing, abdominal pain, nausea, vomiting, constipation or diarrhea. Patient does report some swelling in his calves and ankles. I spoke to patient's primary care provider Dr. Campoverde who is in agreement with initiating Eliquis and Cardizem for patient's new finding of atrial flutter. He he will arrange for cardiology follow-up in the clinic after discharge. Review of Systems Review of Systems: All systems reviewed & are unremarkable except as noted in HPI and below PMFSH Past Medical History Medical History COPD (chronic obstructive pulmonary disease) Dementia Depression DM2 (diabetes mellitus, type 2) Hyperlipidemia Hypertension ADIS (obstructive sleep apnea) Overweight Pedal edema (04/17/18) Urinary incontinence (10/03/17) Surgical History Surgical History History of hernia repair History of mitral valve repair 2014. [facility] Hx of cataract surgery Right Eye Family History Family History Father , Age 86 Acute myocardial infarction Dementia Mother , Age 83 No problems noted. Other Family history of cardiovascular disease Social History Social History Smoking status: Never smoker Second hand tobacco smoke exposure: No Alcohol intake: never Substance use: never Substance use type: does not use Lack of Transportation: No Lack of Food: Never True Current Housing: I Have Housing Concerned About Future Housing: No Difficulty Paying Gas/Electric Bills: No Difficulty Paying for Meds: No Currently Unemployed: No Education: High School Diploma/GED Difficulty w/ Childcare or Family Care: No Living arrangements: with family Additional living arrangements comments: Occupation/Education: retired Gender identity (if verbalized by the patient): Male Spiritual care concerns: No Meds Home Medications and Allergies Home Medications Medication Instructions Recorded Confirmed Type memantine 10 mg tablet (Namenda) 10 mg PO BID 07/13/19 05/01/23 History rosuvastatin 20 mg tablet 20 mg PO DAILY 07/13/19 05/01/23 History furosemide 40 mg tablet 40 mg PO BID #60 tabs 07/23/19 05/01/23 Rx albuterol sulfate 90 mcg/actuation 1 puff inhalation Q4H PRN 01/14/22 05/01/23 History aerosol inhaler Shortness Of Breath aspirin 81 mg tablet,delayed 81 mg PO DAILY 01/14/22 05/01/23 History release donepezil 10 mg tablet 10 mg PO QHS 01/14/22 05/01/23 History metoprolol succinate 50 mg 50 mg PO DAILY 01/14/22 05/01/23 History tablet,extended release 24 hr multivit with min-folic 1 tablet PO DAILY 01/14/22 05/01/23 History acid-lutein 400 mcg-250 mcg chewable tablet (Centrum Silver) Anoro Ellipta 62.5 mcg-25 1 inh inhalation Q24H #60 ea 11/12/22 05/01/23 Rx mcg/actuation powder for inhalation (umeclidinium-vilanterol)
[2023-05-02] MEDS: ROSUVASTATIN 10 MG TABLET 20 MG PO (09:13)
[2023-05-02] MEDS: MEMANTINE 5 MG TABLET 10 MG PO ×2 (09:13→17:01)
[2023-05-02] MEDS: ASPIRIN 81 MG ENTERIC TABLET PO (09:14)
[2023-05-02] MEDS: THERAPEUTIC MULTIVITAMINS/MINERALS TAB (*BKC) 1 TABLET PO (09:14)
[2023-05-02] MEDS: CITALOPRAM HYDROBROMIDE 10 MG TABLET PO (09:15)
[2023-05-02] MEDS: METOPROLOL SUCCINATE EXT REL 50 MG TABCR PO (09:15)
[2023-05-02] MEDS: MAGNESIUM OXIDE 400 MG TABLET PO ×2 (09:15→17:01)
[2023-05-02] MEDS: UMECLIDINIUM/VILANTEROL 62.5-25 MCG ELLIPTA 1 PUFF INHALATION (09:16)
[2023-05-02] MEDS: dilTIAZem HCl INJ 25 MG/5 ML VIAL 15 MG IV PUSH (09:17)
[2023-05-02 09:26] LABS: Troponin I 20.9 ng/L (0.00-60.4)
[2023-05-02 09:27] LABS: Creatine Kinase 75 U/L (39-308)
[2023-05-02] MEDS: POTASSIUM CITRATE 5 MEQ TAB CR 10 MEQ PO ×3 (09:33→17:00)
[2023-05-02] MEDS: dilTIAZem 100 MG/100 ML 100 MG/100 ML BAG IV CONT (11:11)
--- NOTE | 2023-05-02 11:19 | PC.NURSE ---
new order received for cardizem drip. patient and family aware. GRAIN DRIER OPERATOR notified of BP of 96 over 66
[2023-05-02 11:38] LABS: Glucose Point of Care 136 mg/dl (65-105)
[2023-05-02 12:41] LABS: Hemoglobin A1C 7.3 % (<5.7)
--- NOTE | 2023-05-02 13:33 | PC.NURSE ---
heart rate 80-90's, Aki ELECTRICAL/INSTRUMENT TECHNICIAN aware, b/p 86/47, cardizem decreased to 10ml/hr
[2023-05-02] MEDS: APIXABAN 2.5 MG TABLET 5 MG PO ×2 (13:36→20:17)
--- NOTE | 2023-05-02 14:04 | ECG_ITS ---
Measurements Intervals [place] Rate: 82 P: [place]: 0 QRS: 102 QRSD: 114 T: 83 QT: 422 QTc: 493 Interpretive Statements ATRIAL FLUTTER/TACHYCARDIA WITH NORMAL VENTRICULAR RATE RIGHT AXIS DEVIATION INCOMPLETE RIGHT BUNDLE BRANCH BLOCK BORDERLINE T WAVE ABNORMALITY- ANTERIOR LEADS ABNORMAL ECG COMPARED TO ECG 05/01/2023 18:20:07 HEART RATE HAS DECREASED Electronically Signed On 05-02-2023 14:25:16 CDT by Jose J Zapata D.O.
[2023-05-02] MEDS: dilTIAZem HCL CD 240 MG CAP.24HR PO (15:48)
[2023-05-02 16:31] LABS: Glucose Point of Care 153 mg/dl (65-105)
[2023-05-02] MEDS: DONEPEZIL HCL 5 MG TABLET PO (20:17)
[2023-05-02 20:34] LABS: Glucose Point of Care 133 mg/dl (65-105)
[2023-05-03] VITALS: BP 113/74; PULSE 114; RESP 18; TEMP 36.1; O2SAT 97
[2023-05-03 04:00] VITALS: BP 123/70; PULSE 113; PULSE 114; RESP 16; TEMP 36.2; O2SAT 98
[2023-05-03 05:29] LABS: Basophils Absolute Auto 0.07 K/mm3 (0.00-0.10); Eosinophils Absolute Auto 0.39 K/mm3 (0.02-0.50); Eosinophils Percent Auto 5.7 % (1.0-6.0); Hematocrit 45.5 % (37.0-46.0); Hemoglobin 14.1 g/dL (12.4-15.3); Immature Granulocyte Absolute 0.01 K/mm3 (0.00-0.00); Immature Granulocyte Percent A 0.1 % (0.0-0.0); Immature Platelet Fraction Pct 2.5 % (1.0-7.0); Lymphocytes Absolute Auto 2.28 K/mm3 (1.10-4.50); Lymphocytes Percent Auto 33.3 % (18.0-42.0); Mean Corpuscular Hemoglobin 28.4 pg (27.0-31.0); Mean Corpuscular Volume 91.7 fL (78.0-102.0); Mean Platelet Volume 10.4 fl (8.7-11.0); Monocytes Absolute Auto 0.59 K/mm3 (0.10-0.90); Monocytes Percent Auto 8.6 % (2.0-11.0); Neutrophils Absolute Auto 3.5 K/mm3 (1.7-7.2); Neutrophils Percent Auto 51.3 % (50.0-70.0); Platelet Count Result 136 K/mm3 (150-420); Red Blood Count 4.96 M/mm3 (4.70-6.10); Red Cell Distribution Width 13.7 % (11.6-14.4); White Blood Count 6.9 K/mm3 (4.8-10.8)
[2023-05-03 05:43] LABS: Alanine Aminotransferase 27 U/L (16-63); Albumin Level 2.9 g/dL (3.4-5.0); Alkaline Phosphatase 92 U/L (46-116); Anion Gap 8 mmol/L (8-16); Aspartate Amino Transferase 25 U/L (15-37); Bilirubin,Total 0.4 mg/dL (0.00-1.00); Blood Urea Nitrogen 23 mg/dL (7-18); Calcium 9.3 mg/dL (8.5-10.1); Carbon Dioxide 25 mmol/L (21-32); Chloride 110 mmol/L (98-108); Estimated CRCL calculation 52 ml/min; Estimated Glomerular Filt Rate 49; Glucose 124 mg/dL (70-99); Osmolality Calculated 300 mOsm/kg (285-295); Potassium 4.5 mmol/L (3.5-5.1); Sodium 143 mmol/L (136-145); Total Protein 6.5 g/dL (6.4-8.2)
[2023-05-03] MEDS: SODIUM CHLORIDE 0.9% IV 1,000 ML 125 ML IV CONT (07:06)
[2023-05-03 07:46] VITALS: BP 119/68; PULSE 113; RESP 20; TEMP 35.9; O2SAT 96
[2023-05-03 07:46] LABS: Glucose Point of Care 126 mg/dl (65-105)
[2023-05-03 07:48] VITALS: PULSE 113
[2023-05-03] MEDS: UMECLIDINIUM/VILANTEROL 62.5-25 MCG ELLIPTA 1 PUFF INHALATION (08:20)
[2023-05-03] MEDS: POTASSIUM CITRATE 5 MEQ TAB CR 10 MEQ PO ×2 (08:21→13:18)
[2023-05-03] MEDS: APIXABAN 2.5 MG TABLET 5 MG PO (08:21)
[2023-05-03] MEDS: dilTIAZem HCL CD 240 MG CAP.24HR PO (08:21)
[2023-05-03] MEDS: ROSUVASTATIN 10 MG TABLET 20 MG PO (08:22)
[2023-05-03] MEDS: MAGNESIUM OXIDE 400 MG TABLET PO (08:22)
[2023-05-03] MEDS: THERAPEUTIC MULTIVITAMINS/MINERALS TAB (*BKC) 1 TABLET PO (08:22)
[2023-05-03] MEDS: ASPIRIN 81 MG ENTERIC TABLET PO (08:22)
[2023-05-03 08:23] VITALS: PULSE 112
[2023-05-03] MEDS: METOPROLOL SUCCINATE EXT REL 50 MG TABCR PO (08:23)
[2023-05-03] MEDS: MEMANTINE 5 MG TABLET 10 MG PO (08:23)
[2023-05-03] MEDS: CITALOPRAM HYDROBROMIDE 10 MG TABLET PO (08:30)
--- NOTE | 2023-05-03 09:27 | PM.DS ---
DS: Admitting Diagnosis Discharge Date 05/03/2023 Admitting Diagnosis atrial flutter with rapid ventricular response, BRANDON superimposed on CKD, urinary tract infection in male, type 2 diabetes, dementia, pedal edema DS: Discharge Diagnosis Discharge Diagnosis (1) Atrial flutter with rapid ventricular response: Code(s): I48.92 - Unspecified atrial flutter Status: Acute (2) Acute kidney injury superimposed on chronic kidney disease: Code(s): N17.9 - Acute kidney failure, unspecified; N18.9 - Chronic kidney disease, unspecified Status: Acute (3) Urinary incontinence: Onset Date: 10/03/17 Code(s): R32 - Unspecified urinary incontinence Status: Acute (4) Fluid volume depletion: Code(s): E86.9 - Volume depletion, unspecified Status: Acute (5) DM2 (diabetes mellitus, type 2): Qualifiers: Diabetes mellitus complication status: without complication Diabetes mellitus skilled nursing insulin use: without roasterman use Qualified Code(s): E11.9 - Type 2 diabetes mellitus without complications Code(s): E11.9 - Type 2 diabetes mellitus without complications Status: Acute (6) Urinary tract infection in male: Code(s): N39.0 - Urinary tract infection, site not specified Status: Acute (7) Dementia: Code(s): F03.90 - Unspecified dementia, unspecified severity, without behavioral disturbance, psychotic disturbance, mood disturbance, and anxiety Status: Acute (8) Pedal edema: Onset Date: 04/17/18 Code(s): R60.0 - Localized edema Status: Acute DS: Summary Hospital Course Reason for hospitalization: This is a 78-year-old male patient who was admitted to the hospital with apparent new onset atrial flutter with RVR. Hospital Course: Patient had been complaining of palpitations feeling like his heart was beating into his throat. He was found to be tachycardic with new atrial flutter on EKG. He was admitted to the hospital on IV fluids and IV antibiotics for apparent urinary tract infection. He was not septic but he was found to be dehydrated with acute kidney injury. On re-evaluation next morning he remained in atrial atrial flutter at but 120 beats per minute. Cardizem infusion was started with rate control obtained after several hours. He did have some minor hypotension with Cardizem drip. IV fluids continued until morning of discharge. Patient remained asymptomatic throughout the day yesterday and this morning. Heart rate is in the 80s and irregular with atrial flutter with a variable flutter pattern. spoke with Dr. Garcia from prior a cardiology electrophysiology yesterday and he recommended rate control with Cardizem, continue metoprolol and initiate Eliquis due to chads Vasc score of 4. Patient will follow-up with Dr. Garcia in the clinic next week. Instructed patient's on discharge instructions, follow up needs and new medications. Status at Discharge Cognitive/behavioral status at discharge: awake, alert, pleasantly confused per baseline dementia Functional status at discharge: independent ambulation Overall status at discharge: patient is progressing back to baseline Time Spent with Patient Time attestation: Total time spent providing and/or coordinating discharge services: 40 Time spent: Greater than 30 minutes Exam Narrative: GENERAL: Generally well appearing, alert and oriented to self and place, in no apparent distress. He is pleasant and conversant in full sentences. HEENT: Pupils are equally round and briskly reactive to light. Extraocular muscles are intact. Oral mucous membranes are moist without lesions. NECK: The patient has no noted JVD. No adenopathy is appreciated. CHEST/LUNGS: Lungs are clear bilaterally without rhonchi, rales, or wheezes. There is no subcutaneous air appreciated. There is no tenderness to the chest wall. HEART: The patient has a normal rate and irregularly irregular rhythm. Telemetry shows
[2023-05-03 11:23] LABS: Glucose Point of Care 201 mg/dl (65-105)
[2023-05-03 12:00] VITALS: BP 98/64; PULSE 78; PULSE 82; RESP 18; TEMP 36.1; O2SAT 98
[2023-05-03] MEDS: INSULIN HUMAN LISPRO (*BKC) 1,000 UNITS/10 ML VIAL SUB-Q (12:15)
--- NOTE | 2023-05-03 13:30 | PC.NURSE ---
up with assist to [facility] . had small liquid stool with small hard round pieces of stool. sm emesis. back to bed. denies any hip discomfort. claims stomach still upset, sore, and crampy.
--- NOTE | 2023-05-03 15:49 | PC.NURSE ---
1545 discharge to . dc instructions went over with . she vocalizes an understanding. hr is 78. left in [place] to personal auto. encouraged to call if questions.
--- NOTE | 2023-05-04 09:37 | PC.NURSE ---
Discharge call back complete, doing well, discharge information was given to and patient and they understood instructions, will call if they have any questions
== END 2023-05-03 15:45 | disposition home or self-care (01) | DRG 309 ==
LOC: CHSED 21:58 → CHS2ND 22:00
PROVIDERS: Nurse Practitioner; Admitting Provider Internal Medicine; Emergency Provider Emergency Medicine; PCP Internal Medicine; Visit Provider Internal Medicine
DX: I48.92 Unspecified atrial flutter (principal); N17.9 Acute kidney failure, unspecified; N39.0 Urinary tract infection, site not specified; N18.9 Chronic kidney disease, unspecified; I12.9 Hypertensive chronic kidney disease with stage 1 through stage 4 chronic kidney disease, or unspecified chronic kidney disease; E86.9 Volume depletion, unspecified; E11.22 Type 2 diabetes mellitus with diabetic chronic kidney disease; E78.5 Hyperlipidemia, unspecified; J44.9 Chronic obstructive pulmonary disease, unspecified; G47.33 Obstructive sleep apnea (adult) (pediatric); F03.90 Unspecified dementia, unspecified severity, without behavioral disturbance, psychotic disturbance, mood disturbance, and anxiety; F32.A Depression, unspecified; Z79.82 Long term (current) use of aspirin
CPT/HCPCS: 36415; 71046; 76775; 80048; 80053; 81001; 82550; 82948; 83036; 83735; 84484; 85025; 85027; 85055; 85610; 85730; 93005; 93970; 96361; 96365; 96366; 96367; 96376; 99285; A9270; G0378; J0696; J1815; J3480; J7030

== ENCOUNTER 2023-05-10 09:10 | Outpatient (CLI) | payer MEDICARE, SELFPAY ==
[2023-05-10 09:26] LABS: Basophils Absolute Auto 0.11 K/mm3 (0.00-0.10); Basophils Percent Auto 1.2 % (0.0-1.0); Eosinophils Absolute Auto 0.45 K/mm3 (0.02-0.50); Eosinophils Percent Auto 5.1 % (1.0-6.0); Hematocrit 48.4 % (37.0-46.0); Hemoglobin 15.1 g/dL (12.4-15.3); Immature Granulocyte Absolute 0.03 K/mm3 (0.00-0.00); Immature Granulocyte Percent A 0.3 % (0.0-0.0); Lymphocytes Absolute Auto 3.72 K/mm3 (1.10-4.50); Lymphocytes Percent Auto 42.2 % (18.0-42.0); Mean Corpuscular HGB Conc 31.2 g/dL (32.0-36.0); Mean Corpuscular Hemoglobin 28.6 pg (27.0-31.0); Mean Corpuscular Volume 91.7 fL (78.0-102.0); Mean Platelet Volume 10.4 fl (8.7-11.0); Monocytes Absolute Auto 0.65 K/mm3 (0.10-0.90); Monocytes Percent Auto 7.4 % (2.0-11.0); Neutrophils Absolute Auto 3.9 K/mm3 (1.7-7.2); Neutrophils Percent Auto 43.8 % (50.0-70.0); Platelet Count Result 188 K/mm3 (150-420); Red Blood Count 5.28 M/mm3 (4.70-6.10); Red Cell Distribution Width 14.2 % (11.6-14.4); White Blood Count 8.8 K/mm3 (4.8-10.8)
[2023-05-10 09:38] LABS: Hemoglobin A1C 7.1 % (<5.7)
[2023-05-10 10:30] LABS: Alanine Aminotransferase 33 U/L (16-63); Albumin Level 3.7 g/dL (3.4-5.0); Alkaline Phosphatase 121 U/L (46-116); Anion Gap 10 mmol/L (8-16); Aspartate Amino Transferase 27 U/L (15-37); Bilirubin,Total 0.5 mg/dL (0.00-1.00); Blood Urea Nitrogen 27 mg/dL (7-18); Calcium 9.8 mg/dL (8.5-10.1); Carbon Dioxide 28 mmol/L (21-32); Chloride 104 mmol/L (98-108); Estimated Glomerular Filt Rate 40; Glucose 161 mg/dL (70-99); Osmolality Calculated 302 mOsm/kg (285-295); Potassium 4.2 mmol/L (3.5-5.1); Sodium 142 mmol/L (136-145); Total Protein 7.4 g/dL (6.4-8.2)
== END 2023-05-10 09:11 | disposition home or self-care (01) ==
LOC: CHSLAB 09:12
PROVIDERS: PCP Internal Medicine; Visit Provider Internal Medicine
DX: E11.22 Type 2 diabetes mellitus with diabetic chronic kidney disease (principal); I12.9 Hypertensive chronic kidney disease with stage 1 through stage 4 chronic kidney disease, or unspecified chronic kidney disease; N18.30 Chronic kidney disease, stage 3 unspecified
CPT/HCPCS: 36415; 80053; 83036; 85025

== ENCOUNTER 2023-05-15 14:05 | Emergency (ER) | payer MEDICARE, SELFPAY ==
[2023-05-15] VITALS (60 sets, daily range): BP systolic 81–109; BP diastolic 51–70; PULSE 70–131; RESP 13–29; TEMP 36.6–37.3; O2SAT 90–97
--- NOTE | ~2023-05-15 | XR_ITS ---
EXAMINATION: XR chest 1V portable Exam Date/Time: 05/15/2023 14:20 CDT HISTORY: AFib, INCREASED WEAKNESS HX COPD, MITRAL VALVE REPLACEMENT Comparison: 05/01/2023. RESULT: Lines, tubes, and devices: Fractured sternotomy wire, remains in stable position. Cardiac valve repl acement. Lungs and pleura: Senescent changes, otherwise clear. Cardiomediastinal silhouette: Stable. Other: No acute osseous or upper abdominal finding. IMPRESSION: No acute cardiopulmonary process. Reviewed, dictated and finalized at location K.
--- NOTE | 2023-05-15 14:17 | ECG_ITS ---
Measurements Intervals [place] Rate: 124 P: MS: 0 QRS: 148 QRSD: 122 T: 0 QT: 197 QTc: 284 Interpretive Statements ATRIAL FLUTTER/TACHYCARDIA WITH RAPID VENTRICULAR RESPONSE RIGHT BUNDLE BRANCH BLOCK LEFT POSTERIOR FASCICULAR BLOCK ABNORMAL ECG COMPARED TO ECG 05/02/2023 14:20:26 HEART RATE HAS INCREASED RIGHT BUNDLE-BRANCH BLOCK NOW PRESENT LEFT POSTERIOR FASCICULAR BLOCK NOW PRESENT Electronically Signed On 05-15-2023 20:40:39 CDT by Jose J Zapata D.O.
[2023-05-15] MEDS: SODIUM CHLORIDE 0.9% IV 1,000 ML 999 ML IV CONT ×2 (14:36→15:40)
--- NOTE | 2023-05-15 14:42 | ED.GENADULT ---
HPI - General Adult General Chief complaint: Weakness Stated complaint: weakness; a-fib Time Seen by Provider: 05/15/23 14:17 Source: patient, family and EMS Mode of arrival: EMS Limitations: no limitations History of Present Illness HPI narrative: Patient is 78-year-old white male with history of atrial flutter /fib on Eliquis who was discharged from the hospital May 03 with atrial flutters with rapid ventricular response acute kidney injury urinary tract infection incontinence volume depletion diabetes type 2 who has a history of dementia his said yesterday he was weak and did need or drink very much and today he was so weak he fell to the ground without any injury. So she called EMS who brought patient to the hospital. EMS state he had a blood pressure of 96/58 atrial fib with a rate of 120 RVR O2 sat on room air was 94% respirations were 18. Patient has no complaints he says he feels good and wishes to go home. Denies any pain or difficulty breathing or problems urinating. He is normally incontinent he was sent home on antibiotic as well as Cardizem and Eliquis. Patient denies any pain anywhere denies any problems stooling rash or itching dizziness or lightheadedness. Denies any other complaints Past medical history:? Mitral valve repair, kidney stones, UTIs urinary incontinence AAA repair hip replacement hyperlipidemia COPD dementia diabetes AFib/flutter with a RVR Related Data Home Medications Medication Instructions Recorded Confirmed memantine 10 mg tablet (Namenda) 10 mg PO BID 07/13/19 05/15/23 rosuvastatin 20 mg tablet 20 mg PO DAILY 07/13/19 05/15/23 albuterol sulfate 90 mcg/actuation 1 puff inhalation Q4H PRN 01/14/22 05/15/23 aerosol inhaler Shortness Of Breath aspirin 81 mg tablet,delayed 81 mg PO DAILY 01/14/22 05/15/23 release donepezil 10 mg tablet 10 mg PO QHS 01/14/22 05/15/23 metoprolol succinate 50 mg 50 mg PO DAILY 01/14/22 05/15/23 tablet,extended release 24 hr multivit with min-folic 1 tablet PO DAILY 01/14/22 05/15/23 acid-lutein 400 mcg-250 mcg chewable tablet (Centrum Silver) citalopram 20 mg tablet 10 mg PO DAILY 01/07/23 05/15/23 magnesium oxide 400 mg (241.3 mg 400 mg PO BID 01/26/23 05/15/23 magnesium) tablet potassium citrate 10 mEq (1,080 10 meq PO TID 05/01/23 05/15/23 mg) tablet,extended release semaglutide 3 mg tablet (Rybelsus) 3 mg PO DAILY 05/01/23 05/15/23 oxybutynin chloride 5 mg tablet 5 mg PO TID 05/15/23 05/15/23 Allergies Allergy/AdvReac Type Severity Reaction Status Date / Time No Known Allergies Allergy Verified 05/15/23 14:16 Review of Systems Review of Systems: All systems reviewed & are unremarkable except as noted in HPI and below PMFSH Past Medical History Medical History COPD (chronic obstructive pulmonary disease) Dementia Depression DM2 (diabetes mellitus, type 2) Hyperlipidemia Hypertension ADIS (obstructive sleep apnea) Overweight Pedal edema (04/17/18) Urinary incontinence (10/03/17) Surgical History Surgical History History of hernia repair History of mitral valve repair 2014. [facility] Hx of cataract surgery Right Eye Family History Family History Father , Age 86 Acute myocardial infarction Dementia Mother , Age 83 No problems noted. Other Family history of cardiovascular disease Social History Social History Smoking status: Never smoker Second hand tobacco smoke exposure: No Alcohol intake: never Substance use: never Substance use type: does not use Lack of Transportation: No Lack of Food: Never True Current Housing: I Have Housing Concerned About Future Housing: No Difficulty Paying Gas/Electric Bills: No D
[2023-05-15 14:53] LABS: Hematocrit 44.2 % (37.0-46.0); Hemoglobin 14.4 g/dL (12.4-15.3); Mean Corpuscular HGB Conc 32.6 g/dL (32.0-36.0); Mean Corpuscular Volume 89.1 fL (78.0-102.0); Mean Platelet Volume 10.2 fl (8.7-11.0); Platelet Count Result 138 K/mm3 (150-420); Red Blood Count 4.96 M/mm3 (4.70-6.10); Red Cell Distribution Width 13.9 % (11.6-14.4)
[2023-05-15 15:05] LABS: INR 1.1; Prothrombin Time 11.8 Seconds (9.50-12.10)
[2023-05-15 15:11] LABS: Lactic Acid Reflex 1.6 mmol/L (0.4-2.0)
--- NOTE | 2023-05-15 15:20 | ECG_ITS ---
Measurements Intervals [place] Rate: 120 P: -85 ID: [id number] QRS: 153 QRSD: 126 T: 37 QT: 329 QTc: 467 Interpretive Statements ATRIAL FLUTTER/TACHYCARDIA WITH RAPID VENTRICULAR RESPONSE RIGHT BUNDLE BRANCH BLOCK LEFT POSTERIOR FASCICULAR BLOCK ABNORMAL ECG COMPARED TO ECG 05/15/2023 14:19:38 NO SIGNIFICANT CHANGES Electronically Signed On 05-15-2023 20:42:00 CDT by Jose J Zapata D.O.
[2023-05-15 15:22] LABS: Alanine Aminotransferase 26 U/L (16-63); Albumin Level 2.9 g/dL (3.4-5.0); Alkaline Phosphatase 88 U/L (46-116); Anion Gap 11 mmol/L (8-16); Aspartate Amino Transferase 36 U/L (15-37); Bilirubin,Total 1.1 mg/dL (0.00-1.00); Blood Urea Nitrogen 30 mg/dL (7-18); Carbon Dioxide 27 mmol/L (21-32); Chloride 98 mmol/L (98-108); Estimated CRCL calculation 31 ml/min; Estimated Glomerular Filt Rate 27; Glucose 193 mg/dL (70-99); NT Pro B Type Natriuretic Pept 2865 pg/mL (0-450); Osmolality Calculated 293 mOsm/kg (285-295); Potassium 4.1 mmol/L (3.5-5.1); Sodium 136 mmol/L (136-145); Total Protein 7.4 g/dL (6.4-8.2); Troponin I 13.9 ng/L (0.00-60.4)
[2023-05-15 16:58] LABS: Bilirubin Urine Negative (Negative); Blood Urine 3+ (Negative); Color Urine Yellow (Yellow); Glucose Urine UA Negative (Negative); Ketones Urine Negative (Negative); Leukocyte Esterase Ur 3+ LEU/UL (Negative); Nitrate Urine Negative (Negative); Protein Urine 1+ (Negative); Specific Grav Ur 1.015 (1.010-1.020); Urobilinogen Urine 0.2 mg/dL (0.2-1.0)
[2023-05-15 17:06] LABS: Add Urine Microscopic? YES; Appearance Urine Turbid (Clear); Bacteria Urine 4+ /hpf; RBC Urine >100 /hpf (0-2); WBC Clumps Urine Present /hpf; WBC Urine >100 /hpf (0-3)
[2023-05-15] MEDS: PIPERACILLN/TAZ 3.375GM/NS50ML 3.375 GM/50 ML BAG IVPB (18:09)
[2023-05-15] MEDS: VANCOMYCIN 1,000 MG/NS 250 ML 1,000 MG/250 ML BAG 250 MG IVPB (18:16)
[2023-05-15] MEDS: SODIUM CHLORIDE 0.9% IV 1,000 ML 120 ML IV CONT (18:45)
[2023-05-15] MEDS: ALBUMIN HUMAN 25% 25 GM/100 ML 100 ML IVPB (18:47)
--- NOTE | 2023-05-15 19:20 | PC.NURSE ---
Report received, pt noted strong smell of urine. Pt cleaned of incontinent stool and urine. Pt is able to assist in rolling to change but has confusion and is A&O x2 at present. POC explained to pt and and awaiting call back for bed to admit to [facility].
--- NOTE | 2023-05-15 21:06 | PC.NURSE ---
Report given to GBAAS and pt transferred to EMS cot. Pt stable c VSS at d/c.
--- NOTE | 2023-05-18 14:08 | PC.NURSE ---
PRELIMINARY URINE CULTURE RESULTS: ISOLATE 1: GREATER THAN 100,000 CFU/ML OF ESCHERICHIA COLI. RESULTS WERE CALLED TO MARY VILLARREAL AT [facility] PT IS CURRENTLY IN ROOM 1136.
--- NOTE | 2023-05-20 12:46 | PC.NURSE ---
final urine culture reported to [facility]. states pt to be discharged.
== END 2023-05-15 21:08 | disposition short-term general hospital (02) ==
PROVIDERS: Emergency Provider Emergency Medicine; PCP Internal Medicine
DX: I48.20 Chronic atrial fibrillation, unspecified (principal); I95.9 Hypotension, unspecified; E78.5 Hyperlipidemia, unspecified; F03.90 Unspecified dementia, unspecified severity, without behavioral disturbance, psychotic disturbance, mood disturbance, and anxiety; E11.9 Type 2 diabetes mellitus without complications; J44.9 Chronic obstructive pulmonary disease, unspecified; Z79.01 Long term (current) use of anticoagulants; Z79.899 Other long term (current) drug therapy; Z79.82 Long term (current) use of aspirin
CPT/HCPCS: 36415; 71045; 80053; 81001; 83605; 83880; 84484; 85027; 85610; 85730; 87077; 87086; 87088; 87186; 93005; 96361; 96365; 96366; 96367; 99285; J2543; J3370; J7030; P9047

== ENCOUNTER 2023-05-26 10:05 | Outpatient (CLI) | payer MEDICARE, SELFPAY ==
[2023-05-26 10:18] LABS: Basophils Absolute Auto 0.08 K/mm3 (0.00-0.10); Basophils Percent Auto 0.8 % (0.0-1.0); Eosinophils Percent Auto 2.9 % (1.0-6.0); Hematocrit 44.5 % (37.0-46.0); Hemoglobin 14.1 g/dL (12.4-15.3); Immature Granulocyte Absolute 0.05 K/mm3 (0.00-0.00); Immature Granulocyte Percent A 0.5 % (0.0-0.0); Lymphocytes Absolute Auto 3.06 K/mm3 (1.10-4.50); Lymphocytes Percent Auto 29.2 % (18.0-42.0); Mean Corpuscular HGB Conc 31.7 g/dL (32.0-36.0); Mean Corpuscular Hemoglobin 28.9 pg (27.0-31.0); Mean Corpuscular Volume 91.2 fL (78.0-102.0); Monocytes Absolute Auto 0.54 K/mm3 (0.10-0.90); Monocytes Percent Auto 5.1 % (2.0-11.0); Neutrophils Absolute Auto 6.5 K/mm3 (1.7-7.2); Neutrophils Percent Auto 61.5 % (50.0-70.0); Platelet Count Result 321 K/mm3 (150-420); Red Blood Count 4.88 M/mm3 (4.70-6.10); Red Cell Distribution Width 13.8 % (11.6-14.4); White Blood Count 10.5 K/mm3 (4.8-10.8)
[2023-05-26 10:48] LABS: Alanine Aminotransferase 95 U/L (16-63); Albumin Level 3.3 g/dL (3.4-5.0); Alkaline Phosphatase 129 U/L (46-116); Anion Gap 9 mmol/L (8-16); Aspartate Amino Transferase 56 U/L (15-37); Bilirubin,Total 0.5 mg/dL (0.00-1.00); Blood Urea Nitrogen 25 mg/dL (7-18); Calcium 10.5 mg/dL (8.5-10.1); Carbon Dioxide 30 mmol/L (21-32); Chloride 105 mmol/L (98-108); Estimated Glomerular Filt Rate 48; Glucose 188 mg/dL (70-99); Osmolality Calculated 307 mOsm/kg (285-295); Potassium 4.6 mmol/L (3.5-5.1); Sodium 144 mmol/L (136-145); Total Protein 7.1 g/dL (6.4-8.2)
== END 2023-05-26 10:06 | disposition home or self-care (01) ==
LOC: CHSLAB 10:07
PROVIDERS: PCP Internal Medicine; Visit Provider Internal Medicine
DX: I50.9 Heart failure, unspecified (principal); I48.3 Typical atrial flutter
CPT/HCPCS: 36415; 80053; 85025

== ENCOUNTER 2023-06-09 08:54 | Outpatient (RCR) | payer MEDICARE, SELFPAY ==
--- NOTE | 2023-06-09 09:58 | OPREHPOC ---
Outpatient Therapy Plan of Care This is a Multidisciplinary Plan of Care that may contain components documented by all disciplines (PT, OT, and ST.) PT Problem 1 PT Problem #1 Knowledge Deficit PT Goal 1 Goal Patient to demonstrate independence with HEP Target Visit 6 PT Problem 2 PT Problem #2 Pain PT Goal 1 Goal 1. Patient to report highest pain at 2/10 2. Patient to report ability to get out of bed with no increase in pain Target Visit 12 PT Problem 3 PT Problem #3 Impaired Flexibility PT Goal 1 Goal Patient to demonstrate 20 deg of B HS flexibility to improve tolerance to prolonged positioning for house hold tasks Target Visit 12 PT Problem 4 PT Problem #4 Impaired Functional Mobil PT Goal 1 Goal 1. Patient to ambulate 800' during 6 min walk test to decrease fall risk with house hold and community ambulation 2. Patient to demonstrate 5/5 LE strength to improve ability to get in and out of bed 3. Patient to report ability to sit in his chair for >30 min with no increase in pain Target Visit 12
--- NOTE | 2023-06-09 09:58 | PTOPEVAL1 ---
Assessment and note entered by Winter Abbasi DPT Evaluation Information Assessment Status Evaluation Diagnosis low back pain, decreased balance Onset 06/01/23 Subjective Information Patient reports within the last year he has noticed a decrease in balance and increase in low back pain. He reports he has been using a cane for a while and uses it at all times. Patient reports back pain hurts worse with sitting, getting into and out of bed, and walking. He reports he has not tried previous therapy for pain and decreased balance. He reports he has neuropathy. Reported Pain Level Pain Score 2: Self Report Assessment PT Clinical Summary Patient is a 78 year old female who presents to PT with low back pain and impaired balance. He demonstrates decreased LE strength and flexibility , decrease lumbar ROM and impaired mobility with 6 min walk testing. Patient has difficulty with sitting in a chair for long periods of time, getting into and out of bed and ambulating prolonged periods. Patient would benefit from skilled PT to address impairments and return to PLOF. Plan of Care Interventions Gait Training,Hot Pack/Cold Pack,Manual Therapy, Mechanical Traction,Neuro Re-education,Patient/ Caregiver Educati,Therapeutic Activities, Therapeutic Exercise PT Services Indicated Yes Treatment Frequency and 2x weekly for 12 visits Duration These treatments will address the objective and functional deficits as defined above. The patient will be advanced safely and appropriately in order for the patient to progress towards his/her prior level of function. Additional exercises will be introduced and as well as a comprehensive home exercise program upon discharge, if needed, ?to ensure carryover of functional gains achieved in the clinic. This treatment plan has been reviewed and agreement upon by the patient.
--- NOTE | 2023-07-26 10:21 | OPREHPOC ---
Outpatient Therapy Plan of Care This is a Multidisciplinary Plan of Care that may contain components documented by all disciplines (PT, OT, and ST.) PT Problem 1 PT Problem #1 Knowledge Deficit PT Goal 1 Goal Patient to demonstrate independence with HEP Target Visit 6 Progress Met PT Problem 2 PT Problem #2 Pain PT Goal 1 Goal 1. Patient to report highest pain at 2/10 2. Patient to report ability to get out of bed with no increase in pain Target Visit 12 Comment continue PT Problem 3 PT Problem #3 Impaired Flexibility PT Goal 1 Goal Patient to demonstrate 20 deg of B HS flexibility to improve tolerance to prolonged positioning for house hold tasks Target Visit 12 Comment continue PT Problem 4 PT Problem #4 Impaired Functional Mobil PT Goal 1 Goal 1. Patient to ambulate 800' during 6 min walk test to decrease fall risk with house hold and community ambulation 2. Patient to demonstrate 5/5 LE strength to improve ability to get in and out of bed 3. Patient to report ability to sit in his chair for >30 min with no increase in pain Target Visit 12 Comment continue
--- NOTE | 2023-07-26 10:22 | PTOPPROG ---
Assessment and note entered by Winter Abbasi DPT Evaluation Information Assessment Status Progress Diagnosis low back pain, decreased balance Onset 06/01/23 Subjective Information He reports after PT session he has relief for the remainder of the day. He reports his balance is about the same because of his decreased activity due to back pain. He reports he is independent with HEP Assessment PT Clinical Summary Mr. Coleman has been seen for 10 visits of skilled PT. He has demonstrated improved LE strength but continues to demonstrate decreased endurance and increased pain with activiyt. He has relief following PT sessions and is independent with HEP. He will benefit from remaining 2 visits to address impairments and return to PLOF. Plan of Care Interventions Gait Training,Hot Pack/Cold Pack,Manual Therapy, Mechanical Traction,Neuro Re-education,Patient/ Caregiver Educati,Therapeutic Activities, Therapeutic Exercise PT Services Indicated Yes Treatment Frequency and continue with remaining 2 visits Duration These treatments will address the objective and functional deficits as defined above. The patient will be advanced safely and appropriately in order for the patient to progress towards his/her prior level of function. Additional exercises will be introduced and as well as a comprehensive home exercise program upon discharge, if needed, ?to ensure carryover of functional gains achieved in the clinic. This treatment plan has been reviewed and agreement upon by the patient.
--- NOTE | 2023-08-02 11:04 | OPREHPOC ---
Outpatient Therapy Plan of Care This is a Multidisciplinary Plan of Care that may contain components documented by all disciplines (PT, OT, and ST.) PT Problem 1 PT Problem #1 Knowledge Deficit PT Goal 1 Goal Patient to demonstrate independence with HEP Target Visit 6 Progress Met PT Problem 2 PT Problem #2 Pain PT Goal 1 Goal 1. Patient to report highest pain at 2/10 2. Patient to report ability to get out of bed with no increase in pain Target Visit 12 Progress Not Met Comment continue PT Problem 3 PT Problem #3 Impaired Flexibility PT Goal 1 Goal Patient to demonstrate 20 deg of B HS flexibility to improve tolerance to prolonged positioning for house hold tasks Target Visit 12 Progress Not Met Comment continue PT Problem 4 PT Problem #4 Impaired Functional Mobil PT Goal 1 Goal 1. Patient to ambulate 800' during 6 min walk test to decrease fall risk with house hold and community ambulation 2. Patient to demonstrate 5/5 LE strength to improve ability to get in and out of bed 3. Patient to report ability to sit in his chair for >30 min with no increase in pain Target Visit 12 Progress Not Met Comment continue
--- NOTE | 2023-08-02 11:05 | PTOPDC ---
Assessment and note entered by Winter Abbasi DPT Evaluation Information Assessment Status Discharge Diagnosis low back pain, decreased balance Onset 06/01/23 Subjective Information Patient reports he continues to have back pain. He reports he does have relief after PT sessions. He reports he is only able to sit in a chair for ~5 minutes until back pain starts. He denies falls. He is unsure of when he returns to MD. He reports he is compliant with HEP. Reported Pain Level Pain Score 8: Self Report Assessment PT Clinical Summary Mr. Coleman has been seen for 12 visits of skilled PT with some progress towards goals but did not meet goals set. He continues to report significant low back pain with all activities. Patient is limited in all sitting and standing activities to complete house hold tasks. He is independent with HEP. He will be discharged at this time due to plateu in progress. Plan of Care PT Services Indicated No
== END 2023-08-02 17:16 | disposition home or self-care (01) ==
LOC: CHSPT 08:54
PROVIDERS: PCP Internal Medicine; Visit Provider Internal Medicine
DX: M54.9 Dorsalgia, unspecified (principal); R26.9 Unspecified abnormalities of gait and mobility
CPT/HCPCS: 97014; 97110; 97112; 97150; 97161; 97750; G0283

== ENCOUNTER 2023-08-09 09:39 | Outpatient (CLI) | payer MEDICARE, SELFPAY ==
[2023-08-09 09:54] LABS: Basophils Absolute Auto 0.07 K/mm3 (0.00-0.10); Basophils Percent Auto 0.8 % (0.0-1.0); Eosinophils Absolute Auto 0.28 K/mm3 (0.02-0.50); Eosinophils Percent Auto 3.1 % (1.0-6.0); Hematocrit 45.6 % (37.0-46.0); Hemoglobin 14.2 g/dL (12.4-15.3); Immature Granulocyte Absolute 0.04 K/mm3 (0.00-0.00); Immature Granulocyte Percent A 0.4 % (0.0-0.0); Lymphocytes Absolute Auto 3.18 K/mm3 (1.10-4.50); Mean Corpuscular HGB Conc 31.1 g/dL (32.0-36.0); Mean Corpuscular Hemoglobin 28.2 pg (27.0-31.0); Mean Corpuscular Volume 90.5 fL (78.0-102.0); Mean Platelet Volume 10.4 fl (8.7-11.0); Monocytes Absolute Auto 0.73 K/mm3 (0.10-0.90); Neutrophils Absolute Auto 4.8 K/mm3 (1.7-7.2); Neutrophils Percent Auto 52.7 % (50.0-70.0); Platelet Count Result 168 K/mm3 (150-420); Red Blood Count 5.04 M/mm3 (4.70-6.10); Red Cell Distribution Width 14.2 % (11.6-14.4); White Blood Count 9.1 K/mm3 (4.8-10.8)
[2023-08-09 11:14] LABS: Hemoglobin A1C 6.6 % (<5.7)
[2023-08-09 11:38] LABS: Alanine Aminotransferase 23 U/L (16-63); Albumin Level 3.6 g/dL (3.4-5.0); Alkaline Phosphatase 111 U/L (46-116); Anion Gap 4 mmol/L (8-16); Aspartate Amino Transferase 20 U/L (15-37); Bilirubin,Total 0.5 mg/dL (0.00-1.00); Blood Urea Nitrogen 21 mg/dL (7-18); Calcium 10.1 mg/dL (8.5-10.1); Carbon Dioxide 34 mmol/L (21-32); Chloride 103 mmol/L (98-108); Cholesterol 193 mg/dL (0-200); Estimated Glomerular Filt Rate 46; Glucose 152 mg/dL (70-99); HDL Direct 49 mg/dL (40-60); LDL Cholesterol Calculated 94 mg/dL (<130); Osmolality Calculated 298 mOsm/kg (285-295); Potassium 4.7 mmol/L (3.5-5.1); Sodium 141 mmol/L (136-145); Total Protein 7.3 g/dL (6.4-8.2); Triglycerides 251 mg/dL (0-150)
== END 2023-08-09 09:40 | disposition home or self-care (01) ==
LOC: CHSLAB 09:40
PROVIDERS: PCP Internal Medicine; Visit Provider Internal Medicine
DX: E11.9 Type 2 diabetes mellitus without complications (principal); E78.5 Hyperlipidemia, unspecified
CPT/HCPCS: 36415; 80053; 80061; 83036; 85025

== ENCOUNTER 2023-08-14 13:53 | Observation (INO) | payer MEDICARE, SELFPAY ==
[2023-08-14] VITALS (15 sets, daily range): BP systolic 98–147; BP diastolic 52–74; PULSE 70–81; RESP 15–20; TEMP 37.2–38.8; O2SAT 93–98; BMI 30.3
--- NOTE | ~2023-08-14 | XR_ITS ---
XR chest 1V portable 08/14/2023 14:22 Indication: Altered mental status. Weakness. A. fib. Procedure: AP portable chest Comparison: Comparison to multiple prior studies sequentially, with oldest reviewed study dated 10/2021. Findings: Status post median sternotomy for CABG. Borderline heart size. No focal air space disease, pulmonary edema, pleural effusion or suspected pneumothorax. Impression: 1: No acute cardiopulmonary disease. Reviewed, dictated and finalized at location A. MANAGEMENT SUPERVISOR Impression: 1: No acute cardiopulmonary disease.
[2023-08-14] MEDS: SODIUM CHLORIDE 0.9% IV 1,000 ML 999 ML IV CONT ×2 (13:53→15:20)
--- NOTE | 2023-08-14 13:59 | ED.MALEGU ---
HPI - Male Genitourinary General Chief complaint: Urogenital-Male Stated complaint: weakness Time Seen by Provider: 08/14/23 13:58 Source: patient and EMS Mode of arrival: ambulatory Limitations: no limitations History of Present Illness HPI Narrative: patient is a 78-year-old male with anorexia for the past 2 days. He has not been feeling well for the past week. Family is concerned for UTI. He has general weakness. He is having some altered confusion with his baseline dementia. Onset (ago): week(s) (1) Duration: constant Relieving factors: none Exacerbating factors: none Associated symptoms: Reports other ( Anorexia) Related Data Home Medications Medication Instructions Recorded Confirmed memantine 10 mg tablet (Namenda) 10 mg PO BID 07/13/19 08/14/23 rosuvastatin 20 mg tablet 20 mg PO DAILY 07/13/19 08/14/23 aspirin 81 mg tablet,delayed 81 mg PO DAILY 01/14/22 08/14/23 release donepezil 10 mg tablet 10 mg PO QHS 01/14/22 08/14/23 multivit with min-folic 1 tablet PO DAILY 01/14/22 08/14/23 acid-lutein 400 mcg-250 mcg chewable tablet (Centrum Silver) citalopram 20 mg tablet 10 mg PO DAILY 01/07/23 08/14/23 potassium citrate 10 mEq (1,080 10 meq PO TID 05/01/23 08/14/23 mg) tablet,extended release semaglutide 3 mg tablet (Rybelsus) 3 mg PO DAILY 05/01/23 08/14/23 oxybutynin chloride 5 mg tablet 5 mg PO TID 05/15/23 08/14/23 furosemide 40 mg tablet 40 mg PO DAILY 07/12/23 08/14/23 metoprolol succinate 50 mg 12.5 mg PO DAILY 07/12/23 08/14/23 tablet,extended release 24 hr Allergies Allergy/AdvReac Type Severity Reaction Status Date / Time No Known Allergies Allergy Verified 07/12/23 11:09 Review of Systems Review of Systems: All systems reviewed & are unremarkable except as noted in HPI and below Constitutional: Constitutional: Reports no additional constitutional complaints Eyes: Eyes: Reports no additional eye complaints ENT: Reports system reviewed and no additional complaints, except as documented Cardiovascular: Cardiovascular: Reports no additional cardiovascular complaints Respiratory: Respiratory: Reports no additional respiratory complaints Gastrointestinal: Gastrointestinal: Reports no additional gastrointestinal complaints Genitourinary: Genitourinary: Reports no additional male genitourinary complaints Musculoskeletal: Musculoskeletal: Reports no additional musculoskeletal complaints Integumentary/Breasts: Skin/Breast: Reports system reviewed and no additional complaints, except as docu Neurologic: Reports system reviewed and no additional complaints, except as documented Psychiatric: Psychiatric: Reports no additional psychiatric complaints Endocrine: Endocrine: Reports no additional endocrine complaints Hematologic/Lymphatic: Hematologic/Lymphatic: Reports no additional hematologic/lymphatic complaints Allergic/Immunologic: Allergic/Immunologic: Reports no additional allergic/immunologic complaints PMFSH Past Medical History Medical History COPD (chronic obstructive pulmonary disease) Dementia Depression DM2 (diabetes mellitus, type 2) Hyperlipidemia Hypertension ADIS (obstructive sleep apnea) Overweight Pedal edema (04/17/18) Urinary incontinence (10/03/17) Surgical History Surgical History History of hernia repair History of mitral valve repair 2014. [facility] Hx of cataract surgery Right Eye Family History Family History Father , Age 86 Acute myocardial infarction Dementia Mother , Age 83 No problems noted. Other Family history of cardiovascular disease Social History Social History Smoking status: Never smoker Second hand tobacco smoke exposure: No Alcohol intake: never Subst
--- NOTE | 2023-08-14 14:03 | ECG_ITS ---
Measurements Intervals [place] Rate: 69 P: 80 [place]: 176 QRS: 94 QRSD: 114 T: 58 QT: 402 QTc: 433 Interpretive Statements SINUS RHYTHM BORDERLINE RIGHT AXIS DEVIATION [QRS AXIS > 90] COMPARED TO ECG 05/15/2023 15:28:23 SINUS RHYTHM HAS BEEN RESTORED Electronically Signed On 08-14-2023 17:17:08 CABLE MACHINE OPERATOR by Leisa Ashley M.D.
[2023-08-14] MEDS: ACETAMINOPHEN 500 MG TABLET 1000 MG PO (14:41)
[2023-08-14 14:46] LABS: Basophils Absolute Auto 0.03 K/mm3 (0.00-0.10); Basophils Percent Auto 0.3 % (0.0-1.0); Eosinophils Absolute Auto 0.02 K/mm3 (0.02-0.50); Eosinophils Percent Auto 0.2 % (1.0-6.0); Hematocrit 42.4 % (37.0-46.0); Hemoglobin 13.2 g/dL (12.4-15.3); Immature Granulocyte Absolute 0.07 K/mm3 (0.00-0.00); Immature Granulocyte Percent A 0.7 % (0.0-0.0); Lymphocytes Absolute Auto 0.86 K/mm3 (1.10-4.50); Lymphocytes Percent Auto 8.4 % (18.0-42.0); Mean Corpuscular HGB Conc 31.1 g/dL (32.0-36.0); Mean Corpuscular Hemoglobin 28.1 pg (27.0-31.0); Mean Corpuscular Volume 90.2 fL (78.0-102.0); Mean Platelet Volume 10.5 fl (8.7-11.0); Monocytes Absolute Auto 0.45 K/mm3 (0.10-0.90); Monocytes Percent Auto 4.4 % (2.0-11.0); Neutrophils Absolute Auto 8.9 K/mm3 (1.7-7.2); Platelet Count Result 150 K/mm3 (150-420); White Blood Count 10.3 K/mm3 (4.8-10.8)
[2023-08-14 14:52] LABS: SARS-CoV-2 RNA PCR Negative (Negative)
[2023-08-14 14:53] LABS: Influenza A QL RT-PCR Negative (Negative); Influenza B QL RT-PCR Negative (Negative); RSV RNA, RT-PCR Negative (Negative)
[2023-08-14 14:59] LABS: INR 1.1; Partial Thromboplastin Time 35.1 SEC (23.90-30.70); Prothrombin Time 11.8 Seconds (9.50-12.10)
[2023-08-14 15:03] LABS: Alanine Aminotransferase 20 U/L (16-63); Alkaline Phosphatase 94 U/L (46-116); Anion Gap 5 mmol/L (8-16); Aspartate Amino Transferase 19 U/L (15-37); Bilirubin,Total 0.7 mg/dL (0.00-1.00); Blood Urea Nitrogen 21 mg/dL (7-18); Carbon Dioxide 34 mmol/L (21-32); Chloride 98 mmol/L (98-108); Estimated Glomerular Filt Rate 40; Glucose 156 mg/dL (70-99); Lactic Acid Reflex 1.8 mmol/L (0.4-2.0); Osmolality Calculated 290 mOsm/kg (285-295); Potassium 4.2 mmol/L (3.5-5.1); Sodium 137 mmol/L (136-145); Total Protein 7.8 g/dL (6.4-8.2); Troponin I 12.7 ng/L (0.00-60.4)
[2023-08-14 15:13] LABS: Bilirubin Urine Negative (Negative); Blood Urine 2+ (Negative); Color Urine Light Yellow (Yellow); Glucose Urine UA Negative (Negative); Ketones Urine Negative (Negative); Leukocyte Esterase Ur 3+ LEU/UL (Negative); Nitrate Urine Negative (Negative); Protein Urine 1+ (Negative); Specific Grav Ur 1.015 (1.010-1.020); Urobilinogen Urine 0.2 mg/dL (0.2-1.0)
[2023-08-14 15:22] LABS: Add Urine Microscopic? YES; Amorphous Sediment Urine Moderate; Appearance Urine Turbid (Clear); Bacteria Urine 4+ /hpf; Squamous Epithelial Cell Urine Few /hpf (Few); WBC Clumps Urine Present /hpf; WBC Urine 31-50 /hpf (0-3)
--- NOTE | 2023-08-14 16:35 | PC.NURSE ---
Patient arrived to unit on stretcher from ED. Patient able to pivot transfer from stretcher to bed with 1 assist. Patient's gait unsteady. Patient educated on use of call light, bed controls, hospital policies, Visiting hours, use of rapid response system, and safety measures to reduce falls. Patient verbalized understanding, but will likely need reminders. Patient has no personal items at this time, but to bring in his hearing aids and cell phone.
[2023-08-14 17:26] LABS: Glucose Point of Care 152 mg/dl (65-105)
[2023-08-14] MEDS: SODIUM CHLORIDE 0.9% IV 1,000 ML 75 ML IV CONT (18:26)
[2023-08-14] MEDS: ACETAMINOPHEN 325 MG TABLET 650 MG PO (20:51)
[2023-08-14] MEDS: DONEPEZIL HCL 5 MG TABLET 10 MG PO (20:52)
[2023-08-14 21:04] LABS: Glucose Point of Care 156 mg/dl (65-105)
[2023-08-15] VITALS: BP 111/48; PULSE 52; RESP 16; TEMP 36.6; O2SAT 97
[2023-08-15 06:10] LABS: Basophils Absolute Auto 0.05 K/mm3 (0.00-0.10); Basophils Percent Auto 0.5 % (0.0-1.0); Eosinophils Absolute Auto 0.06 K/mm3 (0.02-0.50); Eosinophils Percent Auto 0.6 % (1.0-6.0); Hemoglobin 12.4 g/dL (12.4-15.3); Immature Granulocyte Absolute 0.11 K/mm3 (0.00-0.00); Lymphocytes Absolute Auto 1.49 K/mm3 (1.10-4.50); Lymphocytes Percent Auto 13.8 % (18.0-42.0); Mean Corpuscular Hemoglobin 28.2 pg (27.0-31.0); Mean Corpuscular Volume 90.9 fL (78.0-102.0); Mean Platelet Volume 10.7 fl (8.7-11.0); Monocytes Absolute Auto 0.95 K/mm3 (0.10-0.90); Monocytes Percent Auto 8.8 % (2.0-11.0); Neutrophils Absolute Auto 8.1 K/mm3 (1.7-7.2); Neutrophils Percent Auto 75.3 % (50.0-70.0); Platelet Count Result 143 K/mm3 (150-420); Red Cell Distribution Width 14.2 % (11.6-14.4); White Blood Count 10.8 K/mm3 (4.8-10.8)
[2023-08-15 06:12] LABS: Anion Gap 5 mmol/L (8-16); Blood Urea Nitrogen 19 mg/dL (7-18); Calcium 9.7 mg/dL (8.5-10.1); Carbon Dioxide 32 mmol/L (21-32); Chloride 101 mmol/L (98-108); Estimated CRCL calculation 46 ml/min; Estimated Glomerular Filt Rate 44; Glucose 143 mg/dL (70-99); Osmolality Calculated 290 mOsm/kg (285-295); Potassium 4.1 mmol/L (3.5-5.1); Sodium 138 mmol/L (136-145)
[2023-08-15 07:59] LABS: Glucose Point of Care 137 mg/dl (65-105)
[2023-08-15 08:00] VITALS: BP 128/54; PULSE 64; RESP 14; TEMP 37; O2SAT 98
[2023-08-15] MEDS: SODIUM CHLORIDE 0.9% IV 1,000 ML 75 ML IV CONT (08:00)
[2023-08-15 09:52] VITALS: PULSE 64
[2023-08-15] MEDS: METOPROLOL SUCCINATE EXT REL 12.5 MG TABCR PO (09:52)
[2023-08-15] MEDS: UMECLIDINIUM/VILANTEROL 62.5-25 MCG ELLIPTA 1 PUFF INHALATION (09:52)
[2023-08-15] MEDS: POTASSIUM CITRATE 5 MEQ TAB CR 10 MEQ PO (09:54)
[2023-08-15] MEDS: oxyBUTYnin CHLORIDE 5 MG TABLET PO (09:55)
[2023-08-15] MEDS: CITALOPRAM HYDROBROMIDE 10 MG TABLET PO (09:55)
[2023-08-15] MEDS: ROSUVASTATIN 10 MG TABLET 20 MG PO (09:55)
[2023-08-15] MEDS: MAGNESIUM OXIDE 400 MG TABLET PO (09:55)
[2023-08-15] MEDS: FUROSEMIDE 40 MG TABLET PO (09:56)
[2023-08-15] MEDS: MEMANTINE 5 MG TABLET 10 MG PO (09:56)
[2023-08-15] MEDS: APIXABAN 2.5 MG TABLET 5 MG PO (09:56)
[2023-08-15] MEDS: ASPIRIN 81 MG ENTERIC TABLET PO (10:03)
--- NOTE | 2023-08-15 10:59 | PM.SD2 ---
Same Day Admit/Disch: HPI History of Present Illness Chief complaint: UTI DEHYDRATION Narrative: Rodriguez Coleman is a 78 year old male HPI Narrative: ?patient is a 78-year-old male with anorexia for the past 2 days.? He has not been feeling well for the past week.? Family is concerned for UTI.? He has general weakness.? He is having some altered confusion with his baseline dementia. Onset (ago): week(s) (1) Duration: constant PMFSH Past Medical History Medical History COPD (chronic obstructive pulmonary disease) Dementia Depression DM2 (diabetes mellitus, type 2) Hyperlipidemia Hypertension ADIS (obstructive sleep apnea) Overweight Pedal edema (04/17/18) Urinary incontinence (10/03/17) Surgical History Surgical History History of hernia repair History of mitral valve repair 2014. [facility] Hx of cataract surgery Right Eye Family History Family History Father , Age 86 Acute myocardial infarction Dementia Mother , Age 83 No problems noted. Other Family history of cardiovascular disease Social History Social History Smoking status: Never smoker Second hand tobacco smoke exposure: No Alcohol intake: never Substance use: never Substance use type: does not use Do You Feel Safe in your Home?: Yes Lack of Transportation: No Lack of Food: Never True Current Housing: I Have Housing Concerned About Future Housing: No Difficulty Paying Gas/Electric Bills: No Difficulty Paying for Meds: No Currently Unemployed: No Education: High School Diploma/GED Difficulty w/ Childcare or Family Care: No Living arrangements: with family Additional living arrangements comments: Occupation/Education: retired Gender identity (if verbalized by the patient): Male Spiritual care concerns: No Same Day Admit/Disch: Med Pre-admit Medications Home Medications Medication Instructions Recorded Confirmed Type memantine 10 mg tablet (Namenda) 10 mg PO BID 07/13/19 08/14/23 History rosuvastatin 20 mg tablet 20 mg PO DAILY 07/13/19 08/14/23 History aspirin 81 mg tablet,delayed 81 mg PO DAILY 01/14/22 08/14/23 History release donepezil 10 mg tablet 10 mg PO QHS 01/14/22 08/14/23 History multivit with min-folic 1 tablet PO DAILY 01/14/22 08/14/23 History acid-lutein 400 mcg-250 mcg chewable tablet (Centrum Silver) Anoro Ellipta 62.5 mcg-25 1 inh inhalation Q24H #60 ea 11/12/22 08/14/23 Rx mcg/actuation powder for inhalation (umeclidinium-vilanterol) citalopram 20 mg tablet 10 mg PO DAILY 01/07/23 08/14/23 History potassium citrate 10 mEq (1,080 10 meq PO TID 05/01/23 08/14/23 History mg) tablet,extended release semaglutide 3 mg tablet (Rybelsus) 3 mg PO DAILY 05/01/23 08/14/23 History apixaban 5 mg tablet (Eliquis) 5 mg PO BID #60 tabs 05/03/23 08/14/23 Rx oxybutynin chloride 5 mg tablet 5 mg PO TID 05/15/23 08/14/23 History furosemide 40 mg tablet 40 mg PO DAILY 07/12/23 08/14/23 History magnesium oxide 400 mg (241.3 mg 400 mg PO BID #180 tabs 07/12/23 08/14/23 Rx magnesium) tablet metoprolol succinate 50 mg 12.5 mg PO DAILY 07/12/23 08/14/23 History tablet,extended release 24 hr ciprofloxacin HCl 500 mg tablet 500 mg PO Q12H #14 tabs 08/15/23 Rx Review of Systems Review of Systems falls All systems reviewed & are unremarkable except as noted in HPI and below Exam Const: General: well developed and alert Orientation/consciousness: oriented to person HENMT: Head: normal to inspection Ears: hearing grossly normal bilaterally Eyes: General: appearance normal, both eyes and all related structures Neck: Neck: full ROM Chest: Chest palpation & inspection: normal inspection of the c
--- NOTE | 2023-08-15 13:55 | PC.NURSE ---
Pt discharged to family care. Pt present for discharge instructions. Discharge instructions regarding new medication Ceftriaxone , doseage, times, purpose and side effects. Pt instructed to drink 3 of the 500 ml cups of fluid a day. Pt and instructed to come back to the ER or call their PCP if pt starts to run a fever or deteriorates further. Pt instructed to call his PCP for a follow up appointment this week. Both pt and verbalize ubderstanding of all instructions.
--- NOTE | 2023-08-16 08:45 | PC.NURSE ---
Discharge call back complete, doing ok, did receive dc instructions, no questions or concerns
== END 2023-08-15 12:15 | disposition home or self-care (01) ==
LOC: CHSED 14:58 → CHS2ND 16:29
PROVIDERS: Nurse Practitioner Family; Admitting Provider Internal Medicine; Emergency Provider Emergency Medicine; PCP Internal Medicine; Visit Provider Internal Medicine
DX: N39.0 Urinary tract infection, site not specified (principal); B96.20 Unspecified Escherichia coli [E. coli] as the cause of diseases classified elsewhere; E86.0 Dehydration; N17.9 Acute kidney failure, unspecified; F03.90 Unspecified dementia, unspecified severity, without behavioral disturbance, psychotic disturbance, mood disturbance, and anxiety; J44.9 Chronic obstructive pulmonary disease, unspecified; Z20.822 Contact with and (suspected) exposure to COVID-19; F32.9 Major depressive disorder, single episode, unspecified; E78.5 Hyperlipidemia, unspecified; E11.9 Type 2 diabetes mellitus without complications; I10 Essential (primary) hypertension; G47.33 Obstructive sleep apnea (adult) (pediatric); R63.0 Anorexia; Z68.30 Body mass index [BMI] 30.0-30.9, adult; Z79.82 Long term (current) use of aspirin; Z79.84 Long term (current) use of oral hypoglycemic drugs; Z79.01 Long term (current) use of anticoagulants; Z79.899 Other long term (current) drug therapy
CPT/HCPCS: 36415; 71045; 80048; 80053; 81001; 82948; 83605; 84484; 85025; 85610; 85730; 87040; 87077; 87086; 87088; 87147; 87186; 87637; 93005; 96361; 96365; 96366; 99285; A9270; G0378; J0696; J7030

== ENCOUNTER 2023-12-27 00:12 | Observation (INO) | payer MEDICARE, SELFPAY ==
--- NOTE | ~2023-12-27 | XR_ITS ---
Portable chest x-ray Comparison: 08/14/2023 Clinical History: Weakness Findings: Lungs are clear, without focal consolidation or pleural effusion. Cardiomediastinal silho uette is stable, status post valve placement with loop recorder. Bones and soft tissues are unremarka ble. Impression: Clear lungs. Status post cardiac valve replacement with loop recorder. Reviewed, dictated and finalized at location . Impression: Clear lungs. Status post cardiac valve replacement with loop recorder.
[2023-12-27 00:12] VITALS: BP 110/53; PULSE 69; RESP 18; TEMP 36.7; O2SAT 93
--- NOTE | 2023-12-27 00:20 | ECG_ITS ---
SEE SCANNED COPY FOR CONFIRMED REPORT MTDD
--- NOTE | 2023-12-27 00:22 | ED.WEAKNESS ---
HPI - Weakness General Chief complaint: Weakness Stated complaint: possible uti Time Seen by Provider: 12/27/23 00:20 Source: patient and family Mode of arrival: ambulatory Limitations: no limitations History of Present Illness HPI Narrative: 78 YEARS OLD WHITE MALE CAME TO THE EMERGENCY ROOM BY PRIVATE CAR WITH HIS WHO IS TELLING ME THAT PATIENT BEEN FEELING WEAK ALL DAY LONG. PATIENT HAD ONLY BREAKFAST AND DID NOT HAVE ANY FOOD AFTER THAT. PATIENT IS TELLING ME THAT HE HAVE POOR APPETITE. THE REPORTED THAT PATIENT HAD SIMILAR SYMPTOM IN THE PAST AND USUALLY SECONDARY TO URINARY TRACT INFECTION AND DEHYDRATION. CURRENTLY PATIENT DENIES ANY FEVER, CHILLS, NAUSEA, VOMITING, ABDOMINAL PAIN, CHEST PAIN, SHORTNESS OF BREATH OR BACK PAIN. IS TELLING ME THAT PATIENT HAVE HISTORY OF DEMENTIA AND SOMETIME CANNOT REMEMBER. Related Data Home Medications Medication Instructions Recorded Confirmed memantine 10 mg tablet (Namenda) 10 mg PO BID 07/13/19 08/14/23 rosuvastatin 20 mg tablet 20 mg PO DAILY 07/13/19 08/14/23 aspirin 81 mg tablet,delayed 81 mg PO DAILY 01/14/22 08/14/23 release donepezil 10 mg tablet 10 mg PO QHS 01/14/22 08/14/23 multivit with min-folic 1 tablet PO DAILY 01/14/22 08/14/23 acid-lutein 400 mcg-250 mcg chewable tablet (Centrum Silver) citalopram 20 mg tablet 10 mg PO DAILY 01/07/23 08/14/23 potassium citrate 10 mEq (1,080 10 meq PO TID 05/01/23 08/14/23 mg) tablet,extended release semaglutide 3 mg tablet (Rybelsus) 3 mg PO DAILY 05/01/23 08/14/23 oxybutynin chloride 5 mg tablet 5 mg PO TID 05/15/23 08/14/23 furosemide 40 mg tablet 40 mg PO DAILY 07/12/23 08/14/23 metoprolol succinate 50 mg 12.5 mg PO DAILY 07/12/23 08/14/23 tablet,extended release 24 hr Allergies Allergy/AdvReac Type Severity Reaction Status Date / Time No Known Allergies Allergy Verified 12/27/23 01:57 Review of Systems Review of Systems: All systems reviewed & are unremarkable except as noted in HPI and below PMFSH Past Medical History Medical History COPD (chronic obstructive pulmonary disease) Dementia Depression DM2 (diabetes mellitus, type 2) Hyperlipidemia Hypertension ADIS (obstructive sleep apnea) Overweight Pedal edema (04/17/18) Urinary incontinence (10/03/17) Surgical History Surgical History History of hernia repair History of mitral valve repair 2014. [facility] Hx of cataract surgery Right Eye Family History Family History Father , Age 86 Acute myocardial infarction Dementia Mother , Age 83 No problems noted. Other Family history of cardiovascular disease Social History Social History Smoking status: Never smoker Second hand tobacco smoke exposure: No Alcohol intake: never Substance use: never Substance use type: does not use Do You Feel Safe in your Home?: Yes Lack of Transportation: No Lack of Food: Never True Current Housing: I Have Housing Concerned About Future Housing: No Difficulty Paying Gas/Electric Bills: No Difficulty Paying for Meds: No Currently Unemployed: No Education: High School Diploma/GED Difficulty w/ Childcare or Family Care: No Living arrangements: with family Additional living arrangements comments: Occupation/Education: retired Gender identity (if verbalized by the patient): Male Spiritual care concerns: No Exam Narrative: GENERAL APPEARANCE: WELL-DEVELOPED, WELL-NOURISHED SKIN: NORMAL COLOR HEAD: NORMOCEPHALIC, NONTRAUMATIC EYES: CLEAR CONJUNCTIVA ENT: OROPHARYNX NORMAL, EARS NORMAL, NOSE NORMAL NECK: SUPPLE, NONTENDER CHEST AND RESPIRATORY: AIRWAY PATENT, NO RESPIRATORY DISTRESS, NO ACCESSORY MUSCLE USE HEART: REGULAR RATE/RHYTHM ABD
[2023-12-27 00:40] LABS: Basophils Absolute Auto 0.05 K/mm3 (0.00-0.10); Basophils Percent Auto 0.4 % (0.0-1.0); Eosinophils Absolute Auto 0.01 K/mm3 (0.02-0.50); Eosinophils Percent Auto 0.1 % (1.0-6.0); Hemoglobin 14.5 g/dL (12.4-15.3); Immature Granulocyte Absolute 0.04 K/mm3 (0.00-0.00); Immature Granulocyte Percent A 0.3 % (0.0-0.0); Immature Platelet Fraction Pct 3.8 % (1.0-7.0); Lymphocytes Absolute Auto 1.85 K/mm3 (1.10-4.50); Lymphocytes Percent Auto 14.5 % (18.0-42.0); Mean Corpuscular HGB Conc 31.5 g/dL (32-36); Mean Corpuscular Hemoglobin 26.9 pg (27.0-31.0); Mean Corpuscular Volume 85.2 fL (78.0-102.0); Mean Platelet Volume 10.8 fl (8.7-11.0); Monocytes Absolute Auto 1.21 K/mm3 (0.10-0.90); Monocytes Percent Auto 9.5 % (2.0-11.0); Neutrophils Absolute Auto 9.62 K/mm3 (1.70-7.20); Neutrophils Percent Auto 75.2 % (50.0-70.0); Platelet Count Result 134 K/mm3 (150-420); Red Cell Distribution Width 13.3 % (11.6-14.4); White Blood Count 12.8 K/mm3 (4.8-10.8)
[2023-12-27 00:57] LABS: Alanine Aminotransferase 23 U/L (16-63); Albumin Level 3.1 g/dL (3.4-5.0); Alkaline Phosphatase 73 U/L (46-116); Anion Gap 10 mmol/L (4-12); Aspartate Amino Transferase 18 U/L (15-37); Bilirubin,Total 1.1 mg/dL (0.00-1.00); Blood Urea Nitrogen 20 mg/dL (7-18); Calcium 9.7 mg/dL (8.5-10.1); Carbon Dioxide 28 mmol/L (21-32); Chloride 100 mmol/L (98-108); Estimated Glomerular Filt Rate 40; Glucose 155 mg/dL (70-99); Osmolality Calculated 291 mOsm/kg (285-295); Potassium 4.3 mmol/L (3.5-5.1); Sodium 138 mmol/L (136-145); Total Protein 7.5 g/dL (6.4-8.2); Troponin I 12.5 ng/L (0.00-60.4)
[2023-12-27 01:02] LABS: Lactic Acid Reflex 1.6 mmol/L (0.4-2.0)
[2023-12-27] MEDS: SODIUM CHLORIDE 0.9% IV 1,000 ML 999 ML IV CONT (01:23)
--- NOTE | 2023-12-27 01:24 | PC.NURSE ---
IV STARTED AND PATIENT MEDIATED PER ORDER, SEE MAR. SPOUSE AT BEDSIDE. RN MONITORING. PATIENT AWAITING RESULTS AND PLAN. VSS. CALL LIGHT WITHIN REACH.
[2023-12-27 02:00] LABS: Appearance Urine Clear (Clear); Bilirubin Urine Negative (Negative); Blood Urine 3+ (Negative); Color Urine Yellow (Yellow); Glucose Urine UA Negative (Negative); Ketones Urine Negative (Negative); Leukocyte Esterase Ur 3+ LEU/UL (Negative); Nitrate Urine Negative (Negative); Protein Urine Trace (Negative); Urobilinogen Urine 0.2 mg/dL (0.2-1.0)
[2023-12-27 02:10] LABS: Add Urine Microscopic? YES; Bacteria Urine 4+ /hpf; RBC Urine >75 /hpf (0-2); Squamous Epithelial Cell Urine Occasional /hpf (Few); WBC Urine >75 /hpf (0-3)
[2023-12-27 03:15] VITALS: BMI 29.9
--- NOTE | 2023-12-27 03:31 | ADMGEN ---
This patient, Rodriguez Coleman, was admitted to 2nd Floor Room 206-1. Patient/family oriented to hospital policies and general routines including ID bracelet, bed and alarms, visiting hours, pain management, procedures, bathroom and other care routines, personal items, smoking policy, room service/diet, and visiting hours. Information on how to activate the Rapid Response Team has been discussed. Patient/Family are encouraged to report perceived risks to care and to ask questions if they do not understand what they are told or what they should do.
[2023-12-27] MEDS: SODIUM CHLORIDE 0.9% IV 1,000 ML 75 ML IV CONT ×2 (03:49→17:00)
[2023-12-27 08:00] VITALS: BP 112/68; PULSE 80; RESP 20; TEMP 36.6; O2SAT 94
--- NOTE | 2023-12-27 08:33 | PM.IMHP ---
H&P: HPI History of Present Illness Date/Time: 12/27/23 08:33 Chief Complaint: Weakness Narrative: This is a 78-year-old gentleman with a past medical history significant for COPD, dementia, depression, dm 2, hyperlipidemia, hypertension, ADIS non-compliant with CPAP, CKD, and urinary incontinence who presented to the ER from home accompanied by his with complaints of weakness. His is concerned that he has a urinary tract infection. He complains of poor appetite and increased weakness. In the ED labs were significant for leukocytosis 12.8, platelet 134, neutrophils 75.2%, creatinine 1.68, T bili 1.1, and UA concerning for UTI with 3+ blood, 3+ leukocyte esterase, pyuria and 4+ bacteria. Chest x-ray shows clear lungs and cardiac valve replacement with loop recorder. Urine culture and blood cultures are pending. Previous urine cultures showed E coli sensitive to beta lactams. He was started on NS at 75 mL and given Rocephin 1 g. He was admitted overnight for fluid hydration and IV antibiotics for UTI. On exam this morning he is alert and orientated x 3, he stumbles on the year. He denies any complaints for me other than weakness and decreased appetite. He denies dizziness, headache, chest pain, shortness of breath, nausea, vomiting, diarrhea, constipation, abdominal pain, or dysuria. I discussed with him the current plan of care which he is agreeable to. He has no questions or concerns at this time. Review of Systems Review of Systems: All systems reviewed & are unremarkable except as noted in HPI and below PMFSH Past Medical History Medical History COPD (chronic obstructive pulmonary disease) Dementia Depression DM2 (diabetes mellitus, type 2) Hyperlipidemia Hypertension ADIS (obstructive sleep apnea) Overweight Pedal edema (04/17/18) Urinary incontinence (10/03/17) Surgical History Surgical History History of hernia repair History of mitral valve repair 2014. [facility] Hx of cataract surgery Right Eye Family History Family History Father , Age 86 Acute myocardial infarction Dementia Mother , Age 83 No problems noted. Other Family history of cardiovascular disease Social History Social History (Updated 12/27/23 @ 10:20 by Maureen Ibarra, MACHINE HOSTLER) Smoking status: Never smoker Second hand tobacco smoke exposure: No Alcohol intake: never Substance use: never Substance use type: does not use Do You Feel Safe in your Home?: Yes Lack of Transportation: No Lack of Food: Never True Current Housing: I Have Housing Concerned About Future Housing: No Difficulty Paying Gas/Electric Bills: No Difficulty Paying for Meds: No Currently Unemployed: No Education: Trade/Vocational Certificate Difficulty w/ Childcare or Family Care: No Living arrangements: with family Additional living arrangements comments: , Wilma is his emergency contact. 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 Gender identity (if verbalized by the patient): Male Spiritual care concerns: No Meds Home Medications and Allergies Home Medications Medication Instructions Recorded Confirmed Type memantine 10 mg tablet (Namenda) 10 mg PO BID 07/13/19 12/27/23 History rosuvastatin 20 mg tablet 20 mg PO DAILY 07/13/19 12/27/23 History aspirin 81 mg tablet,delayed 81 mg PO DAILY 01/14/22 12/27/23 History release donepezil 10 mg tablet 10 mg PO QHS 01/14/22 12/27/23 History multivit with min-folic 1 tablet PO DAILY 01/14/22 12/27/23 History acid-lutein 400 mcg-250 mcg chewable tablet (Centrum Silver) Anoro Ellipta 62.5 mcg-25 1 inh inhalation Q24H #60 ea 11/12/22 12/27/23 Rx mcg/actuation powder for inhalation
[2023-12-27] MEDS: UMECLIDINIUM/VILANTEROL 62.5-25 MCG ELLIPTA 1 PUFF INHALATION (09:45)
[2023-12-27] MEDS: APIXABAN 2.5 MG TABLET 5 MG BY MOUTH ×2 (09:46→20:24)
[2023-12-27] MEDS: polyethylene glycoL 3350 17 GM POWD.PACK PO (09:46)
[2023-12-27] MEDS: FUROSEMIDE 40 MG TABLET PO (09:46)
[2023-12-27] MEDS: ASPIRIN 81 MG ENTERIC TABLET PO (09:46)
[2023-12-27] MEDS: MEMANTINE 5 MG TABLET 10 MG PO ×2 (09:46→16:46)
[2023-12-27 09:47] VITALS: PULSE 76
[2023-12-27] MEDS: MAGNESIUM OXIDE 400 MG TABLET PO ×2 (09:47→16:46)
[2023-12-27] MEDS: ROSUVASTATIN 10 MG TABLET 20 MG PO (09:47)
[2023-12-27] MEDS: CITALOPRAM HYDROBROMIDE 10 MG TABLET PO (09:47)
[2023-12-27] MEDS: METOPROLOL SUCCINATE EXT REL 12.5 MG TABCR PO (09:47)
[2023-12-27] MEDS: oxyBUTYnin CHLORIDE 5 MG TABLET PO ×3 (09:47→16:47)
[2023-12-27 11:54] LABS: Glucose Point of Care 155 mg/dl (65-105)
[2023-12-27 16:00] VITALS: BP 133/63; PULSE 52; RESP 16; TEMP 37.1; O2SAT 97
[2023-12-27 16:47] LABS: Glucose Point of Care 129 mg/dl (65-105)
[2023-12-27 20:00] VITALS: PULSE 52; RESP 16; O2SAT 97
[2023-12-27] MEDS: DONEPEZIL HCL 5 MG TABLET 10 MG PO (20:24)
[2023-12-27 20:29] LABS: Glucose Point of Care 149 mg/dl (65-105)
[2023-12-28] VITALS: BP 117/56; PULSE 90; RESP 17; TEMP 36.7; O2SAT 97
[2023-12-28] MEDS: cefTRIAXone 2 GM/NS 100 ML 2 GM/100 ML BAG IVPB (05:05)
[2023-12-28 05:19] LABS: Basophils Absolute Auto 0.04 K/mm3 (0.00-0.10); Basophils Percent Auto 0.5 % (0.0-1.0); Eosinophils Absolute Auto 0.16 K/mm3 (0.02-0.50); Eosinophils Percent Auto 1.9 % (1.0-6.0); Hematocrit 43.5 % (37.0-46.0); Hemoglobin 13.3 g/dL (12.4-15.3); Immature Granulocyte Absolute 0.04 K/mm3 (0.00-0.00); Immature Granulocyte Percent A 0.5 % (0.0-0.0); Immature Platelet Fraction Pct 3.8 % (1.0-7.0); Lymphocytes Percent Auto 20.1 % (18.0-42.0); Mean Corpuscular HGB Conc 30.6 g/dL (32-36); Mean Corpuscular Hemoglobin 26.4 pg (27.0-31.0); Mean Corpuscular Volume 86.5 fL (78.0-102.0); Mean Platelet Volume 10.7 fl (8.7-11.0); Monocytes Absolute Auto 0.87 K/mm3 (0.10-0.90); Monocytes Percent Auto 10.3 % (2.0-11.0); Neutrophils Absolute Auto 5.66 K/mm3 (1.70-7.20); Neutrophils Percent Auto 66.7 % (50.0-70.0); Platelet Count Result 115 K/mm3 (150-420); Red Blood Count 5.03 M/mm3 (4.70-6.10); Red Cell Distribution Width 13.2 % (11.6-14.4); White Blood Count 8.5 K/mm3 (4.8-10.8)
[2023-12-28 05:32] LABS: Hemoglobin A1C 6.4 % (<5.7)
[2023-12-28 05:37] LABS: Alanine Aminotransferase 40 U/L (16-63); Albumin Level 2.5 g/dL (3.4-5.0); Alkaline Phosphatase 64 U/L (46-116); Anion Gap 9 mmol/L (4-12); Aspartate Amino Transferase 37 U/L (15-37); Bilirubin,Total 0.6 mg/dL (0.00-1.00); Blood Urea Nitrogen 18 mg/dL (7-18); Calcium 9.3 mg/dL (8.5-10.1); Carbon Dioxide 27 mmol/L (21-32); Chloride 104 mmol/L (98-108); Estimated CRCL calculation 45 ml/min; Estimated Glomerular Filt Rate 49; Glucose 109 mg/dL (70-99); Magnesium 2.1 mg/dL (1.8-2.4); Osmolality Calculated 292 mOsm/kg (285-295); Potassium 4.1 mmol/L (3.5-5.1); Sodium 140 mmol/L (136-145); Total Protein 6.5 g/dL (6.4-8.2)
[2023-12-28 07:47] LABS: Glucose Point of Care 127 mg/dl (65-105)
[2023-12-28 08:00] VITALS: BP 106/52; PULSE 61; RESP 16; TEMP 36.2; O2SAT 96
[2023-12-28] MEDS: UMECLIDINIUM/VILANTEROL 62.5-25 MCG ELLIPTA 1 PUFF INHALATION (09:22)
[2023-12-28] MEDS: FUROSEMIDE 40 MG TABLET PO (09:23)
[2023-12-28] MEDS: MAGNESIUM OXIDE 400 MG TABLET PO (09:24)
[2023-12-28] MEDS: MEMANTINE 5 MG TABLET 10 MG PO (09:24)
[2023-12-28] MEDS: POTASSIUM CHLORIDE 10 MEQ ER TABLET PO ×2 (09:24→12:48)
[2023-12-28] MEDS: APIXABAN 2.5 MG TABLET 5 MG BY MOUTH (09:25)
[2023-12-28] MEDS: ROSUVASTATIN 10 MG TABLET 20 MG PO (09:25)
[2023-12-28 09:26] VITALS: PULSE 61
[2023-12-28] MEDS: ASPIRIN 81 MG ENTERIC TABLET PO (09:26)
[2023-12-28] MEDS: METOPROLOL SUCCINATE EXT REL 12.5 MG TABCR PO (09:26)
[2023-12-28] MEDS: CITALOPRAM HYDROBROMIDE 10 MG TABLET PO (09:26)
[2023-12-28] MEDS: oxyBUTYnin CHLORIDE 5 MG TABLET PO ×2 (09:26→12:48)
[2023-12-28 11:52] LABS: Glucose Point of Care 169 mg/dl (65-105)
--- NOTE | 2023-12-28 14:34 | PM.SD2 ---
Same Day Admit/Disch: HPI History of Present Illness Chief complaint: UTI DEHYDRATION WEAKNESS Narrative: Rodriguez Coleman is a 78 [place] [address] Discharge Summary Signed Patient: Umm Jose MR#: [id number] : 12/06/1922 Acct:[id number] Age: 89 ADM Date: 11/28/23 Loc: [facility] [id number] This is a 78-year-old gentleman with a past medical history significant for COPD, dementia, depression, dm 2, hyperlipidemia, hypertension, ADIS non-compliant with CPAP, CKD, and urinary incontinence who presented to the ER from home accompanied by his with complaints of weakness.? His is concerned that he has a urinary tract infection.? He complains of poor appetite and increased weakness.? In the ED labs were significant for leukocytosis 12.8, platelet 134, neutrophils 75.2%, creatinine 1.68, T bili 1.1, and UA concerning for UTI with 3+ blood, 3+ leukocyte esterase, pyuria and 4+ bacteria.? Chest x-ray shows clear lungs and cardiac valve replacement with loop recorder.? Urine culture and blood cultures are pending.? Previous urine cultures showed E coli sensitive to beta lactams.? He was started on NS at 75 mL and given Rocephin 1 g.? He was admitted overnight for fluid hydration and IV antibiotics for UTI. On exam this morning he is alert and orientated x 3, he stumbles on the year. He denies any complaints for me other than weakness and decreased appetite. He denies dizziness, headache, chest pain, shortness of breath, nausea, vomiting, diarrhea, constipation, abdominal pain, or dysuria. I discussed with him the current plan of care which he is agreeable to. He has no questions or concerns at this time. [facility] Past Medical History Medical History COPD (chronic obstructive pulmonary disease) Dementia Depression DM2 (diabetes mellitus, type 2) Hyperlipidemia Hypertension ADIS (obstructive sleep apnea) Overweight Pedal edema (04/17/18) Urinary incontinence (10/03/17) Surgical History Surgical History History of hernia repair History of mitral valve repair 2014. [facility] Hx of cataract surgery Right Eye Family History Family History Father , Age 86 Acute myocardial infarction Dementia Mother , Age 83 No problems noted. Other Family history of cardiovascular disease Social History Social History Smoking status: Never smoker Second hand tobacco smoke exposure: No Alcohol intake: never Substance use: never Substance use type: does not use Do You Feel Safe in your Home?: Yes Lack of Transportation: No Lack of Food: Never True Current Housing: I Have Housing Concerned About Future Housing: No Difficulty Paying Gas/Electric Bills: No Difficulty Paying for Meds: No Currently Unemployed: No Education: Trade/Vocational Certificate Difficulty w/ Childcare or Family Care: No Living arrangements: with family Additional living arrangements comments: , Wilma is his emergency contact. 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
--- NOTE | 2023-12-29 12:37 | PC.NURSE ---
Discharge call back complete, understood instructions, doing well
== END 2023-12-28 15:30 | disposition home or self-care (01) ==
LOC: CHSED 02:24 → CHS2ND 07:47
PROVIDERS: Nurse Practitioner Acute Care; Admitting Provider Internal Medicine; Emergency Provider Emergency Medicine; PCP Internal Medicine; Visit Provider Internal Medicine
DX: N39.0 Urinary tract infection, site not specified (principal); E86.0 Dehydration; N18.9 Chronic kidney disease, unspecified; I12.9 Hypertensive chronic kidney disease with stage 1 through stage 4 chronic kidney disease, or unspecified chronic kidney disease; J44.9 Chronic obstructive pulmonary disease, unspecified; E11.9 Type 2 diabetes mellitus without complications; E78.5 Hyperlipidemia, unspecified; G47.33 Obstructive sleep apnea (adult) (pediatric); F32.A Depression, unspecified; F03.90 Unspecified dementia, unspecified severity, without behavioral disturbance, psychotic disturbance, mood disturbance, and anxiety; Z79.82 Long term (current) use of aspirin; Z95.2 Presence of prosthetic heart valve; Z79.01 Long term (current) use of anticoagulants
CPT/HCPCS: 36415; 71045; 80053; 81001; 82948; 83036; 83605; 83735; 84484; 85025; 85055; 87040; 87077; 87086; 87088; 87186; 93005; 96361; 96374; 97110; 97161; 97165; 97530; 97535; 99285; A9270; G0378; J0696; J7030

== ENCOUNTER 2024-01-11 13:14 | Outpatient (CLI) | payer MEDICARE, SELFPAY ==
--- NOTE | ~2024-01-11 | XR_ITS ---
EXAMINATION: XR abdomen/kub 1V DATE: 01/11/2024 13:33 INDICATION: Nephrolithiasis TECHNIQUE: A supine view of the abdomen on 2 radiographs was obtained. COMPARISON: 12/15/2022 FINDINGS: Cluster of 5-6 stones at the lower pole the left kidney, the largest measuring 9 mm. No other evident nephrolithiasis. Normal bowel gas pattern with no dilated loops of bowel to suggest obstruction. Aor tobiiliac endoluminal stent graft. Multiple surgical clips in the right groin. Partially visualized l eft total hip arthroplasty. IMPRESSION: 1. Cluster 5-6 stones measuring up to 9 mm at the lower pole the left kidney. Reviewed, dictated and finalized at location A.
== END 2024-01-11 13:15 | disposition home or self-care (01) ==
LOC: CHSIMG 13:17
PROVIDERS: PCP Internal Medicine; Visit Provider Internal Medicine Nephrology
DX: N18.31 Chronic kidney disease, stage 3a (principal); N20.0 Calculus of kidney
CPT/HCPCS: 74018

== ENCOUNTER 2024-01-25 11:30 | Outpatient (CLI) | payer MEDICARE, SELFPAY ==
[2024-01-25 12:06] LABS: Estimated Glomerular Filt Rate 48
== END 2024-01-25 11:31 | disposition home or self-care (01) ==
LOC: CHSLAB 11:33
PROVIDERS: PCP Internal Medicine; Visit Provider Physician Assistant
DX: R31.29 Other microscopic hematuria (principal)
CPT/HCPCS: 99199

== ENCOUNTER 2024-01-26 09:23 | Outpatient (CLI) | payer MEDICARE, SELFPAY ==
--- NOTE | ~2024-01-26 | CT_ITS ---
CT of the Abdomen and Pelvis: Indication: Microscopic hematuria Technique: 2.5 mm axial scans were obtained through the abdomen and pelvis prior to and following in travenous administration of 130 cc of Omnipaque 350. Dose reduction technique was used on this scan b y utilizing automated exposure control and iterative reconstruction technique. The dose-length produc t (DLP) was 2048.98 mGy-cm. Findings: Scans through the lung bases are unremarkable. The liver, spleen, pancreas, gallbladder, and adrenal glands are within normal limits. There is corti josé luis scarring or possibly post surgical change of the right kidney, with small probable hyperdense rig ht renal cyst present. Multiple left renal cysts are present. There are several nonobstructing left r enal stones, measuring up to 8 mm in maximum diameter. Aortic stent graft in place, with underlying m ild infrarenal abdominal aortic aneurysm measuring 3.8 cm in diameter. No lymphadenopathy. No bowel obstruction or bowel wall thickening. There is no evidence to suggest acute appendicitis. Images through the pelvis were performed. Urinary bladder unremarkable. No pelvic mass seen. No ascit es. Impression: Left nephrolithiasis, as above. Cortical scarring versus possibly postoperative change of the right kidney. Aortic stent graft, as above. Reviewed, dictated and finalized at location M. Impression: Left nephrolithiasis, as above. Cortical scarring versus possibly postoperative change of the right kidney. Aortic stent graft, as above.
== END 2024-01-26 09:24 | disposition home or self-care (01) ==
LOC: CHSIMG 09:24
PROVIDERS: PCP Internal Medicine; Visit Provider Physician Assistant
DX: R31.29 Other microscopic hematuria (principal); N20.0 Calculus of kidney; Z95.828 Presence of other vascular implants and grafts
CPT/HCPCS: 74178; Q9967

== ENCOUNTER 2024-02-09 10:09 | Outpatient (CLI) | payer MEDICARE, SELFPAY ==
--- NOTE | ~2024-02-09 | XR_ITS ---
XR abdomen/kub 1V Ordering provider: Kacie Darling PA-C History: . LEFT RENAL STONE . Comparison: January 11, 2024 FINDINGS: BOWEL: Nonobstructive bowel gas pattern. ORGANOMEGALY: None. SIGNIFICANT PATHOLOGIC CALCIFICATIONS: Fecal material is overlapping the kidney areas. Bilateral renal calcifications. Faint calcifications seen in the right sacral alar area may be a ston e OTHER: Stent graft is seen in the abdominal aorta and iliac arteries. No free air is seen under the d iaphragm. Degenerative spine. Left hip arthroplasty. IMPRESSION: Bilateral kidney stones. The previously mentioned left kidney stone is unchanged. Reviewed, dictated and finalized at location A. IMPRESSION: Bilateral kidney stones. The previously mentioned left kidney stone is unchange d.
== END 2024-02-09 10:10 | disposition home or self-care (01) ==
PROVIDERS: PCP Internal Medicine; Visit Provider Physician Assistant
DX: N20.0 Calculus of kidney (principal)
CPT/HCPCS: 74018

== ENCOUNTER 2024-04-17 10:09 | Outpatient (CLI) | payer MEDICARE, SELFPAY ==
[2024-04-17 11:04] LABS: Prothrombin Time 13.4 Seconds (11.1-14.7)
[2024-04-17 11:05] LABS: Partial Thromboplastin Time 27.3 Seconds (22.3-36.8)
[2024-04-17 11:07] LABS: Anion Gap 8 mmol/L (4-12); Blood Urea Nitrogen 29 mg/dL (9-20); Carbon Dioxide 32 mmol/L (22-30); Chloride 101 mmol/L (98-107); Estimated Glomerular Filt Rate 42; Glucose 144 mg/dL (65-110); Potassium 4.3 mmol/L (3.4-5.0); Sodium 141 mmol/L (137-145)
== END 2024-04-17 10:10 | disposition home or self-care (01) ==
PROVIDERS: Anesthesiology; PCP Internal Medicine; Visit Provider Urology
DX: Z01.818 Encounter for other preprocedural examination (principal); N20.0 Calculus of kidney; I10 Essential (primary) hypertension
CPT/HCPCS: 36415; 80048; 85610; 85730; 87077; 87086; 87088; 87186

== ENCOUNTER 2024-04-30 11:49 | Outpatient (CLI) | payer MEDICARE, SELFPAY | END 2024-04-30 11:50 | disposition home or self-care (01) | PROVIDERS: PCP Internal Medicine; Visit Provider Urology | DX: Z01.818 Encounter for other preprocedural examination (principal); N20.0 Calculus of kidney | CPT/HCPCS: 87077; 87086; 87088; 87186 ==

== ENCOUNTER 2024-05-10 10:03 | Outpatient (CLI) | payer MEDICARE, SELFPAY ==
[2024-05-10 10:28] LABS: INR 0.9; Prothrombin Time 10.1 Seconds (9.50-12.1)
== END 2024-05-10 10:04 | disposition home or self-care (01) ==
LOC: CHSLAB 10:04
PROVIDERS: PCP Internal Medicine; Visit Provider Urology
DX: N20.0 Calculus of kidney (principal); I48.91 Unspecified atrial fibrillation
CPT/HCPCS: 36415; 85610; 85730; 87077; 87086; 87088

== ENCOUNTER 2024-05-18 00:26 | Day surgery (SDC) | payer MEDICARE, SELFPAY ==
--- NOTE | 2024-04-16 09:41 | PC.NURSE ---
Report to the Outpatient Waiting Room, entrance under the green pavilion located off [facility], at time _6 AM on date _04/20/24 . Planned Procedure Time: __7:30 AM .? Time changes happen often and if your time is changed the preop area will call you the afternoon before. - You and your visitor will be asked to self-screen and do not enter if you have any COVID symptoms. Please call surgeon if you need to reschedule. - A mask is optional within the hospital at this time. Patients may have clear liquids (water, carbonated beverages, clear teas, apple juice) until 3 hours prior to surgery( 4:30 AM) with a maximum of 20 ounces. - No food from midnight until time of surgery and no smoking - Infants may have breast milk until 4 hours before surgery, infant formula 6 hours prior to surgery. - Children will be allowed to drink immediately following surgery.? If applicable, please bring a bottle or sippy cup to assist with drinking. Juice, water, soda, and popsicles are readily available.? For infants on formula, please bring formula the day of surgery.? Pacifiers are allowed. Take only the following medications with a SIP of water on the morning of surgery: __ANORO ELLIPTA IF NEEDED,CITALOPRAM,MEMANTINE DO NOT STOP ANY OF YOUR OTHER PRESCRIPTION MEDICATIONS PRIOR TO SURGERY EXCEPT THE FOLLOWING Medications to discontinue per physician __WIFE STATES HOLD ASPIRIN PER DR REBOLLAR.LAST DOSE 04/15/24. HOLD ALL VITAMINS AND SUPPLEMENTS 3 DAYS PRE OP .LAST DOSE 04/16/24 Please no make-up, nail romanian, hairspray, perfume, deodorant, or body powder the day of surgery.? No jewelry (including any body piercings) or valuables the day of surgery, leave them at home.? Please take a shower or bath the night before, or the morning of, surgery with an antibacterial soap.? Wear comfortable, loose fitting clothing.? Children are encouraged to wear pajamas. - Jewelry must be removed prior to entering the operating room.? Rings and piercings that are not removed may be cut off. - The hospital will not accept responsibility for valuables.? - Please leave all valuables, including medications, at home the day of surgery. If you are going home after surgery, a licensed motor bus driver must drive you home.? - NO public transportation without another adult if you receive anesthesia. - We recommend that an adult stay with you for 24 hours following discharge. - We also recommend that you do not drive, make important decision, drink alcoholic beverages, or take any drugs that were not prescribed by your health care provider for at least 24 hours after your discharge time. Follow any additional instructions given to you from your surgeon. Telephone instructions given to _WIFE FAVIO and asked if any additional questions and then verbalized understanding. Patient advised to call surgeon office or pre surgery nurse liaison [phone] if any additional questions.
[2024-04-16 10:03] VITALS: BMI 29.0
--- NOTE | 2024-04-25 15:34 | PC.NURSE ---
Report to the Outpatient Waiting Room, entrance under the green pavilion located off [facility], at time __630AM on date 05/04/24 . Planned Procedure Time: _0830AM .? Time changes happen often and if your time is changed the preop area will call you the afternoon before. - You and your visitor will be asked to self-screen and do not enter if you have any COVID symptoms. Please call surgeon if you need to reschedule. - A mask is optional within the hospital at this time. Patients may have clear liquids (water, carbonated beverages, clear teas, apple juice) until 3 hours prior to surgery (530 AM)with a maximum of 20 ounces. - No food from midnight until time of surgery and no smoking - Infants may have breast milk until 4 hours before surgery, infant formula 6 hours prior to surgery. - Children will be allowed to drink immediately following surgery.? If applicable, please bring a bottle or sippy cup to assist with drinking. Juice, water, soda, and popsicles are readily available.? For infants on formula, please bring formula the day of surgery.? Pacifiers are allowed. Take only the following medications with a SIP of water on the morning of surgery: ANORO ELLIPTA INHALER IF NEEDED,CITALOPRAM,MEMANTINE DO NOT STOP ANY OF YOUR OTHER PRESCRIPTION MEDICATIONS PRIOR TO SURGERY EXCEPT THE FOLLOWING Medications to discontinue per physician ___WIFE STATES HOLD ASPIRIN AND ALL VITAMINS AND SUPPLEMENTS 7 DAYS PRE OP .LAST DOSE 04/26/24 Date to take last dose Please no make-up, nail turkish, hairspray, perfume, deodorant, or body powder the day of surgery.? No jewelry (including any body piercings) or valuables the day of surgery, leave them at home.? Please take a shower or bath the night before, or the morning of, surgery with an antibacterial soap.? Wear comfortable, loose fitting clothing.? Children are encouraged to wear pajamas. - Jewelry must be removed prior to entering the operating room.? Rings and piercings that are not removed may be cut off. - The hospital will not accept responsibility for valuables.? - Please leave all valuables, including medications, at home the day of surgery. If you are going home after surgery, a licensed tow bar driver must drive you home.? - NO public transportation without another adult if you receive anesthesia. - We recommend that an adult stay with you for 24 hours following discharge. - We also recommend that you do not drive, make important decision, drink alcoholic beverages, or take any drugs that were not prescribed by your health care provider for at least 24 hours after your discharge time. For Pediatric surgeries, we recommend two adults accompany the child home. Follow any additional instructions given to you from your surgeon. Telephone instructions given to _WIFE FAVIO and asked if any additional questions and then verbalized understanding. Patient advised to call surgeon office or pre surgery nurse liaison [phone] if any additional questions.
--- NOTE | 2024-05-04 13:45 | PC.NURSE ---
Report to the Outpatient Waiting Room, entrance under the green pavilion located off [facility], at time _6:00AM_ on date _05/18/24_. Planned Procedure Time: _7:30AM_.? Time changes happen often and if your time is changed the preop area will call you the afternoon before. - You and your visitor will be asked to self-screen and do not enter if you have any COVID symptoms. Please call surgeon if you need to reschedule. - A mask is optional within the hospital at this time. Patients may have clear liquids (water, carbonated beverages, clear teas, apple juice) until 3 hours prior to surgery with a maximum of 20 ounces. - No food from midnight until time of surgery and no smoking. Take only the following medications with a SIP of water on the morning of surgery: ___ANORO ELLIPTA INHALER, CITALOPRAM DO NOT STOP ANY OF YOUR OTHER PRESCRIPTION MEDICATIONS PRIOR TO SURGERY EXCEPT THE FOLLOWING Medications to discontinue per physician ____HOLD ASPIRIN AND VITAMINS/SUPPLEMENTS 7 DAYS PRE-OP PER DR REBOLLAR(PER PATIENT'S )-LAST DOSE 05/10/24 Please no make-up, nail djiboutian, hairspray, perfume, deodorant, or body powder the day of surgery.? No jewelry (including any body piercings) or valuables the day of surgery, leave them at home.? Please take a shower or bath the night before, or the morning of, surgery with an antibacterial soap.? Wear comfortable, loose fitting clothing.? - Jewelry must be removed prior to entering the operating room.? Rings and piercings that are not removed may be cut off. - The hospital will not accept responsibility for valuables.? - Please leave all valuables, including medications, at home the day of surgery. If you are going home after surgery, a licensed paratransit driver must drive you home.? - NO public transportation without another adult if you receive anesthesia. - We recommend that an adult stay with you for 24 hours following discharge. - We also recommend that you do not drive, make important decision, drink alcoholic beverages, or take any drugs that were not prescribed by your health care provider for at least 24 hours after your discharge time. Follow any additional instructions given to you from your surgeon. Telephone instructions given to ____PATIENT'S WIFE and asked if any additional questions and then verbalized understanding. Patient advised to call surgeon office or pre surgery nurse liaison [phone] if any additional questions.
[2024-05-18] VITALS (8 sets, daily range): BP systolic 132–158; BP diastolic 69–82; PULSE 53–65; RESP 10–18; TEMP 36.2–36.3; O2SAT 96–100; BMI 29.6
--- NOTE | ~2024-05-18 | XR_ITS ---
EXAMINATION: XR abdomen/kub 1V DATE: 05/18/2024 06:50 INDICATION: Nephrolithiasis for extracorporeal shock wave lithotripsy. TECHNIQUE: A supine view of the abdomen on 2 radiographs was obtained. COMPARISON: None. FINDINGS: A couple 10 mm and 9 mm stones in the mid left kidney. Aortobiiliac endoluminal stent graft. Normal b owel gas pattern. Left total hip arthroplasty. Multiple surgical clips at the right groin likely rela nirmal to prior vascular access. Median sternotomy wires and cardiac valve repair. Lung bases are clear with no pleural effusion. IMPRESSION: 1. Left nephrolithiasis. Reviewed, dictated and finalized at location A. IMPRESSION: 1. Left nephrolithiasis.
--- NOTE | 2024-05-18 07:11 | WPDANESEPPF ---
Anes - Initial Pre Proc Eval Procedure: Operation Date: 05/18/24 07:30 Proposed Procedures p Left Renal Extracorporeal Shock Wave Lithotripsy - Rancho Valenzuela MD Date/Time: 05/18/24 07:11 Surgeon: Rancho Valenzuela MD Pre Op Diagnosis: left renal stone Patient Data Age: 79 Gender: M Height: 1.85 m Weight: 99.8 kg Allergies Allergy/AdvReac Type Severity Reaction Status Date / Time No Known Allergies Allergy Verified 05/04/24 13:36 Home Medications Medication Instructions Recorded Confirmed Type memantine 10 mg tablet (Namenda) 10 mg PO BID 07/13/19 05/04/24 History rosuvastatin 20 mg tablet 20 mg PO DAILY 07/13/19 05/04/24 History aspirin 81 mg tablet,delayed 81 mg PO DAILY 01/14/22 05/04/24 History release donepezil 10 mg tablet 10 mg PO QHS 01/14/22 05/04/24 History multivit with min-folic 1 tablet PO DAILY 01/14/22 05/04/24 History acid-lutein 400 mcg-250 mcg chewable tablet (Centrum Silver) Anoro Ellipta 62.5 mcg-25 1 inh inhalation Q24H #60 ea 11/12/22 05/04/24 Rx mcg/actuation powder for inhalation (umeclidinium-vilanterol) potassium citrate 10 mEq (1,080 10 meq PO DAILY 05/01/23 05/04/24 History mg) tablet,extended release semaglutide 3 mg tablet (Rybelsus) 3 mg PO 2XW 05/01/23 05/04/24 History oxybutynin chloride 5 mg tablet 5 mg PO TID 05/15/23 05/04/24 History magnesium oxide 400 mg (241.3 mg 400 mg PO BID #180 tabs 09/27/23 05/04/24 Rx magnesium) tablet citalopram 10 mg tablet 10 mg PO DAILY 04/16/24 05/04/24 History furosemide 20 mg tablet 20 mg PO DAILY 04/16/24 05/04/24 History loratadine 10 mg tablet (Claritin) 10 mg PO DAILY 04/16/24 05/04/24 History nitrofurantoin 100 mg PO Q12H 05/04/24 05/04/24 History monohydrate/macrocrystals 100 mg capsule (Macrobid) Patient hx anesthesia problems: none Family hx anesthesia problems: none Results Review: All pre-operative results and documents have been reviewed as part of the pre-operative evaluation. FOR[facility] Past Medical History Medical History COPD (chronic obstructive pulmonary disease) Dementia Depression DM2 (diabetes mellitus, type 2) Hyperlipidemia Hypertension ADIS (obstructive sleep apnea) Overweight Pedal edema (04/17/18) Urinary incontinence (10/03/17) Surgical History Surgical History History of hernia repair History of mitral valve repair 2014. [facility] Hx of cataract surgery Right Eye Family History Family History Father , Age 86 Acute myocardial infarction Dementia Mother , Age 83 No problems noted. Other Family history of cardiovascular disease Social History Social History Smoking status: Never smoker Second hand tobacco smoke exposure: No Alcohol intake: never Substance use: never Substance use type: does not use Do You Feel Safe in your Home?: Yes Lack of Transportation: No Lack of Food: Never True Current Housing: I Have Housing Concerned About Future Housing: No Difficulty Paying Gas/Electric Bills: No Difficulty Paying for Meds: No Currently Unemployed: No Education: Trade/Vocational Certificate Difficulty w/ Childcare or Family Care: No Living arrangements: with family Additional living arrangements comments: , Wilma is his emergency contact. 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
[2024-05-18] MEDS: LACTATED RINGERS 1,000 ML 30 ML IV CONT (07:27)
--- NOTE | 2024-05-18 07:31 | WPDHPUPDATE1 ---
History and Physical Update Update Date/Time: 05/18/24 07:31 History and Physical has been reviewed, including an updated exam of the patient. There are NO changes in the patient's condition. Risks, benefits, and alternatives have been discussed and questions answered. Patient agrees to proceed with procedure. proceed with left renal eswl
--- NOTE | 2024-05-18 07:31 | PM.IMHP ---
H&P: HPI History of Present Illness Date/Time: 05/18/24 07:31 Chief Complaint: left renal calculus Narrative: 79 yr old with left renal calculus Review of Systems Review of Systems: All systems reviewed & are unremarkable except as noted in HPI and below PMFSH Past Medical History Medical History COPD (chronic obstructive pulmonary disease) Dementia Depression DM2 (diabetes mellitus, type 2) Hyperlipidemia Hypertension ADIS (obstructive sleep apnea) Overweight Pedal edema (04/17/18) Urinary incontinence (10/03/17) Surgical History Surgical History History of hernia repair History of mitral valve repair 2014. [facility] Hx of cataract surgery Right Eye Family History Family History Father , Age 86 Acute myocardial infarction Dementia Mother , Age 83 No problems noted. Other Family history of cardiovascular disease Social History Social History Smoking status: Never smoker Second hand tobacco smoke exposure: No Alcohol intake: never Substance use: never Substance use type: does not use Do You Feel Safe in your Home?: Yes Lack of Transportation: No Lack of Food: Never True Current Housing: I Have Housing Concerned About Future Housing: No Difficulty Paying Gas/Electric Bills: No Difficulty Paying for Meds: No Currently Unemployed: No Education: Trade/Vocational Certificate Difficulty w/ Childcare or Family Care: No Living arrangements: with family Additional living arrangements comments: , Wilma is his emergency contact. 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 Gender identity (if verbalized by the patient): Male Spiritual care concerns: No Meds Home Medications and Allergies Home Medications Medication Instructions Recorded Confirmed Type memantine 10 mg tablet (Namenda) 10 mg PO BID 07/13/19 05/04/24 History rosuvastatin 20 mg tablet 20 mg PO DAILY 07/13/19 05/04/24 History aspirin 81 mg tablet,delayed 81 mg PO DAILY 01/14/22 05/04/24 History release donepezil 10 mg tablet 10 mg PO QHS 01/14/22 05/04/24 History multivit with min-folic 1 tablet PO DAILY 01/14/22 05/04/24 History acid-lutein 400 mcg-250 mcg chewable tablet (Centrum Silver) Anoro Ellipta 62.5 mcg-25 1 inh inhalation Q24H #60 ea 11/12/22 05/04/24 Rx mcg/actuation powder for inhalation (umeclidinium-vilanterol) potassium citrate 10 mEq (1,080 10 meq PO DAILY 05/01/23 05/04/24 History mg) tablet,extended release semaglutide 3 mg tablet (Rybelsus) 3 mg PO 2XW 05/01/23 05/04/24 History oxybutynin chloride 5 mg tablet 5 mg PO TID 05/15/23 05/04/24 History magnesium oxide 400 mg (241.3 mg 400 mg PO BID #180 tabs 09/27/23 05/04/24 Rx magnesium) tablet citalopram 10 mg tablet 10 mg PO DAILY 04/16/24 05/04/24 History furosemide 20 mg tablet 20 mg PO DAILY 04/16/24 05/04/24 History loratadine 10 mg tablet (Claritin) 10 mg PO DAILY 04/16/24 05/04/24 History nitrofurantoin 100 mg PO Q12H 05/04/24 05/04/24 History monohydrate/macrocrystals 100 mg capsule (Macrobid) Allergies Allergy/AdvReac Type Severity Reaction Status Date / Time No Known Allergies Allergy Verified 05/04/24 13:36 Vital Signs Vital Signs - 24 hr 05/18/24 07:24 Temperature 36.2 C L Pulse Rate 53 L Blood Pressure 132/71 Pulse Oximetry 98 Oxygen Delivery Room Air Exam Const: General: cooperative and comfortable Resp: Effort & Inspection: normal respiratory effort Cardio: Rate: regular rate Rhythm: regular rhythm Assessment and Plan Assessment and plan (1) Left renal stone: Code(s): N20.0 - Calculus of ki
[2024-05-18] MEDS: ceFAZolin 2 GM/D5W 50 ML 2 GM/50 ML BAG IVPB (07:40)
[2024-05-18 07:57] LABS: Glucose Point of Care 131 mg/dl (65-105)
--- NOTE | 2024-05-18 08:24 | W.PM.PROC2 ---
Procedure Note - Detailed Date of Procedure 05/18/24 Pre-op Diagnosis left renal stone Post-op Diagnosis Same Procedure Performed Lithotripsy of left renal calculus Surgeon Rancho Valenzuela MD Anesthesia General Description of Procedure Patient was taken to the operative suite correctly identified. Once anesthesia was obtained the largest stone was localized in both planes. Two thousand shocks were given to this stone. There appeared to be fairly good fragmentation. We then focussed another 500 shocks on the stone that was little more superior to that. That stone measured about 5 mm. Patient tolerated procedure well without any complications is taken recovery stable condition. This completes dictation. Please send a copy of op note to my office Estimated Blood Loss 0 Drains Yes Packing No Pathology None sent Complications No immediate complications Condition Stable Disposition PACU
[2024-05-18 08:38] LABS: Glucose Point of Care 125 mg/dl (65-105)
--- NOTE | 2024-05-18 08:52 | SUR.PHASEI ---
Simple mask removed 0850.
== END 2024-05-18 10:26 | disposition home or self-care (01) ==
PROVIDERS: PCP Internal Medicine; Visit Provider Urology
PROC: (CPT 50590; principal; 2024-05-18 07:30)
DX: N20.0 Calculus of kidney (principal); I10 Essential (primary) hypertension; E11.9 Type 2 diabetes mellitus without complications; E78.5 Hyperlipidemia, unspecified; G47.33 Obstructive sleep apnea (adult) (pediatric); J44.9 Chronic obstructive pulmonary disease, unspecified; F32.A Depression, unspecified; R32 Unspecified urinary incontinence; F03.90 Unspecified dementia, unspecified severity, without behavioral disturbance, psychotic disturbance, mood disturbance, and anxiety; Z79.82 Long term (current) use of aspirin; Z79.51 Long term (current) use of inhaled steroids; Z98.890 Other specified postprocedural states; Z86.79 Personal history of other diseases of the circulatory system; Z82.49 Family history of ischemic heart disease and other diseases of the circulatory system
CPT/HCPCS: 50590; 74018; 82948; J0690; J1100; J1596; J2405; J2704; J3010; J7120

== ENCOUNTER 2024-05-22 09:39 | Outpatient (CLI) | payer MEDICARE, SELFPAY ==
[2024-05-22 10:00] LABS: Basophils Absolute Auto 0.05 K/mm3 (0.00-0.10); Basophils Percent Auto 0.5 % (0.0-1.0); Eosinophils Absolute Auto 0.31 K/mm3 (0.02-0.50); Eosinophils Percent Auto 3.3 % (1.0-6.0); Hematocrit 48.8 % (37.0-46.0); Hemoglobin 15.6 g/dL (12.4-15.3); Immature Granulocyte Absolute 0.08 K/mm3 (0.00-0.00); Immature Granulocyte Percent A 0.9 % (0.0-0.0); Immature Platelet Fraction Pct 3.7 % (1.0-7.0); Lymphocytes Absolute Auto 3.42 K/mm3 (1.10-4.50); Lymphocytes Percent Auto 36.9 % (18.0-42.0); Mean Corpuscular Hemoglobin 27.7 pg (27.0-31.0); Mean Corpuscular Volume 86.7 fL (78.0-102.0); Mean Platelet Volume 10.6 fl (8.7-11.0); Monocytes Absolute Auto 0.79 K/mm3 (0.10-0.90); Monocytes Percent Auto 8.5 % (2.0-11.0); Neutrophils Absolute Auto 4.61 K/mm3 (1.70-7.20); Neutrophils Percent Auto 49.9 % (50.0-70.0); Platelet Count Result 129 K/mm3 (150-420); Red Blood Count 5.63 M/mm3 (4.70-6.10); Red Cell Distribution Width 14.8 % (11.6-14.4); White Blood Count 9.3 K/mm3 (4.8-10.8)
[2024-05-22 10:05] LABS: Hemoglobin A1C 6.2 % (<5.7)
[2024-05-22 10:55] LABS: Alanine Aminotransferase 24 U/L (16-63); Albumin Level 3.7 g/dL (3.4-5.0); Alkaline Phosphatase 100 U/L (46-116); Anion Gap 7 mmol/L (4-12); Aspartate Amino Transferase 20 U/L (15-37); Bilirubin,Total 0.6 mg/dL (0.00-1.00); Blood Urea Nitrogen 36 mg/dL (7-18); Calcium 9.9 mg/dL (8.5-10.1); Carbon Dioxide 31 mmol/L (21-32); Chloride 103 mmol/L (98-108); Cholesterol 208 mg/dL (0-200); Estimated Glomerular Filt Rate 30; Glucose 122 mg/dL (70-99); HDL Direct 53 mg/dL (40-60); LDL Cholesterol Calculated 106 mg/dL (<130); Osmolality Calculated 301 mOsm/kg (285-295); Potassium 4.7 mmol/L (3.5-5.1); Sodium 141 mmol/L (136-145); Total Protein 7.1 g/dL (6.4-8.2); Triglycerides 247 mg/dL (0-150)
== END 2024-05-22 09:40 | disposition home or self-care (01) ==
LOC: CHSLAB 09:41
PROVIDERS: PCP Internal Medicine; Visit Provider Internal Medicine
DX: E11.9 Type 2 diabetes mellitus without complications (principal)
CPT/HCPCS: 36415; 80053; 80061; 83036; 85025; 85055

== ENCOUNTER 2024-05-25 23:38 | Emergency (ER) | payer MEDICARE, SELFPAY ==
--- NOTE | ~2024-05-25 | XR_ITS ---
EXAMINATION: XR chest 1V DATE: 05/26/2024 00:55 INDICATION: Fever and weakness TECHNIQUE: frontal view of the chest was obtained. COMPARISON: Chest radiograph dated 05/26/2024 FINDINGS: The lungs are clear with no focal airspace opacities, pulmonary edema, pleural effusion or pneumothor ax. The cardiomediastinal silhouette is normal. Median sternotomy wires and mitral valve repair. 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 IMPRESSION: 1. No acute cardiopulmonary disease. Reviewed, dictated and finalized at location A.
--- NOTE | ~2024-05-25 | CT_ITS ---
EXAMINATION: CT abdomen pelvis wo con DATE: 05/26/2024 00:56 INDICATION: Fever, abdominal pain and weakness TECHNIQUE: Computed tomography (CT) of the abdomen and pelvis was performed without intravenous contr ast. Automated exposure control and iterative reconstruction technique were employed. The dose-length product was 987.95 mGy-cm. COMPARISON: 01/26/2024 FINDINGS: Mild discoid atelectasis at the medial lung bases. Heart size normal. Atherosclerotic coronary artery calcifications. Median sternotomy wires and mitral valve repair. Small hepatic granuloma. Gallbladde r, spleen, pancreas and bilateral adrenal glands are normal. Bilateral renal cysts the largest on the left measuring 4.4 cm. Postoperative change of prior partial right nephrectomy with suture line patsy g the region of cortical scarring at the lower pole. There are 6 nonobstructing stones at lower pole calyces of the left kidney the largest measuring 9 mm in maximal diameter. There is an 8 x 5 mm stone in the proximal left ureter with mild left hydroureteronephrosis and asymmetric left perinephric str anding. Small calcified appendicoliths at the distal tip of the normal appendix. No bowel obstruction . Small amount of gas in the bladder. No free intraperitoneal gas or fluid. No pathologically enlarge d abdominal or pelvic lymphadenopathy. Fusiform infrarenal abdominal aortic aneurysm measuring up to 3.5 cm maximal diameter with with aortobiiliac stent graft with additional stenting at the origin of the right renal artery. There are bridging osteophytes at multiple levels consistent with diffuse idi opathic skeletal hyperostosis (DISH). IMPRESSION: 1. Left nephrolithiasis with obstructing 8 x 5 mm proximal left ureteral stone with mild left hydrone phrosis. 2. Aortobiiliac stent graft spanning 3.5 similar fusiform infrarenal abdominal aortic aneurysm. 3. Small amount of gas in the bladder. Correlate for recent instrumentation or Sin catheterization. Reviewed, dictated and finalized at location A. IMPRESSION: 1. Left nephrolithiasis with obstructing 8 x 5 mm proximal left ureteral stone with mild left hydronephrosis. 2. Aortobiiliac stent graft spanning 3.5 similar fusiform infrarenal abdominal aortic aneurysm. 3. Small amount of gas in the bladder. Correlate for recent instrumentation or Sin catheterization.
--- NOTE | 2024-05-25 23:52 | ED.WEAKNESS ---
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 No focal weakness. This has begun since yesterday. He recently in the past week had lithotripsy for renal stones and Botox for male genital urinary system. He has recurrent UTIs. MD Complaint: generalized weakness Onset (ago): day(s) (2) Duration: constant Location: generalized Migration: none Severity: moderate Severity scale (1-10): 4 Quality: other ( No pain; he did have some abdominal pain yesterday but that resolved) Relieving factors: none Exacerbating factors: other ( recent lithotripsy 1 week ago and Botox in the past week of the male genital area) Context: recent surgery Associated symptoms: nausea/vomiting ( yesterday and last night) Related Data Home Medications Medication Instructions Recorded Confirmed memantine 10 mg tablet (Namenda) 10 mg PO BID 07/13/19 05/25/24 rosuvastatin 20 mg tablet 20 mg PO DAILY 07/13/19 05/25/24 aspirin 81 mg tablet,delayed 81 mg PO DAILY 01/14/22 05/25/24 release donepezil 10 mg tablet 10 mg PO QHS 01/14/22 05/25/24 multivit with min-folic 1 tablet PO DAILY 01/14/22 05/25/24 acid-lutein 400 mcg-250 mcg chewable tablet (Centrum Silver) potassium citrate 10 mEq (1,080 10 meq PO DAILY 05/01/23 05/25/24 mg) tablet,extended release semaglutide 3 mg tablet (Rybelsus) 3 mg PO EVERY OTHER DAY 05/01/23 05/25/24 oxybutynin chloride 5 mg tablet 5 mg PO TID 05/15/23 05/25/24 citalopram 10 mg tablet 10 mg PO DAILY 04/16/24 05/25/24 furosemide 20 mg tablet 20 mg PO DAILY 04/16/24 05/25/24 loratadine 10 mg tablet (Claritin) 10 mg PO DAILY 04/16/24 05/25/24 Allergies Allergy/AdvReac Type Severity Reaction Status Date / Time No Known Allergies Allergy Verified 05/04/24 13:36 Review of Systems Review of Systems: All systems reviewed & are unremarkable except as noted in HPI and below Constitutional: Constitutional: Reports no additional constitutional complaints Eyes: Eyes: Reports no additional eye complaints ENT: Reports system reviewed and no additional complaints, except as documented Cardiovascular: Cardiovascular: Reports no additional cardiovascular complaints Respiratory: Respiratory: Reports no additional respiratory complaints Gastrointestinal: Gastrointestinal: Reports no additional gastrointestinal complaints Genitourinary: Genitourinary: Reports no additional male genitourinary complaints Musculoskeletal: Musculoskeletal: Reports no additional musculoskeletal complaints Integumentary/Breasts: Skin/Breast: Reports system reviewed and no additional complaints, except as docu Neurologic: Reports system reviewed and no additional complaints, except as documented Psychiatric: Psychiatric: Reports no additional psychiatric complaints Endocrine: Endocrine: Reports no additional endocrine complaints Hematologic/Lymphatic: Hematologic/Lymphatic: Reports no additional hematologic/lymphatic complaints Allergic/Immunologic: Allergic/Immunologic: Reports no additional allergic/immunologic complaints PMFSH Past Medical History Medical History COPD (chronic obstructive pulmonary disease) Dementia Depression DM2 (diabetes mellitus, type 2) Hyperlipidemia Hypertension ADIS (obstructive sleep apnea) Overweight Pedal edema (04/17/18) Urinary incontinence (10/03/17) Surgical History Surgical History History of hernia repair History of mitral valve repair 2014. [facility] Hx of cataract surgery Right Eye Family History Family History Father
[2024-05-25 23:54] VITALS: BP 110/96; PULSE 80; RESP 18; TEMP 38.6; O2SAT 94
[2024-05-26] MEDS: SODIUM CHLORIDE 0.9% IV 1,000 ML 999 ML IV CONT ×2 (01:05→01:49)
[2024-05-26] MEDS: PIPERACILLN/TAZ 3.375GM/NS50ML 3.375 GM/50 ML BAG IVPB (01:10)
[2024-05-26 01:15] LABS: Basophils Absolute Auto 0.05 K/mm3 (0.00-0.10); Basophils Percent Auto 0.3 % (0.0-1.0); Eosinophils Absolute Auto 0.04 K/mm3 (0.02-0.50); Eosinophils Percent Auto 0.2 % (1.0-6.0); Hematocrit 48.5 % (37.0-46.0); Hemoglobin 15.7 g/dL (12.4-15.3); Immature Granulocyte Absolute 0.11 K/mm3 (0.00-0.00); Immature Granulocyte Percent A 0.6 % (0.0-0.0); Immature Platelet Fraction Pct 3.1 % (1.0-7.0); Lymphocytes Absolute Auto 2.14 K/mm3 (1.10-4.50); Lymphocytes Percent Auto 12.3 % (18.0-42.0); Mean Corpuscular HGB Conc 32.4 g/dL (32-36); Mean Corpuscular Hemoglobin 27.7 pg (27.0-31.0); Mean Corpuscular Volume 85.5 fL (78.0-102.0); Mean Platelet Volume 10.5 fl (8.7-11.0); Monocytes Absolute Auto 2.05 K/mm3 (0.10-0.90); Monocytes Percent Auto 11.8 % (2.0-11.0); Neutrophils Percent Auto 74.8 % (50.0-70.0); Platelet Count Result 128 K/mm3 (150-420); Red Blood Count 5.67 M/mm3 (4.70-6.10); Red Cell Distribution Width 15.1 % (11.6-14.4); White Blood Count 17.4 K/mm3 (4.8-10.8)
[2024-05-26 01:21] LABS: Alanine Aminotransferase 16 U/L (16-63); Albumin Level 3.4 g/dL (3.4-5.0); Alkaline Phosphatase 83 U/L (46-116); Anion Gap 9 mmol/L (4-12); Aspartate Amino Transferase 16 U/L (15-37); Bilirubin,Total 1.2 mg/dL (0.00-1.00); Blood Urea Nitrogen 41 mg/dL (7-18); Calcium 10.1 mg/dL (8.5-10.1); Carbon Dioxide 27 mmol/L (21-32); Chloride 99 mmol/L (98-108); Estimated CRCL calculation 28 ml/min; Estimated Glomerular Filt Rate 28; Glucose 155 mg/dL (70-99); Osmolality Calculated 293 mOsm/kg (285-295); Potassium 4.9 mmol/L (3.5-5.1); Sodium 135 mmol/L (136-145); Total Protein 7.6 g/dL (6.4-8.2)
[2024-05-26 01:24] LABS: Lactic Acid Reflex 1.3 mmol/L (0.4-2.0)
[2024-05-26 02:30] VITALS: BP 129/59; PULSE 55; RESP 18; TEMP 36.8; O2SAT 97
--- NOTE | 2024-05-26 02:30 | PC.NURSE ---
Pt resting, lights dimmed, spouse went home. Explained POC and wait time for CT report. Urinal in place for pt to give urine. Pt unable to void at this time.
[2024-05-26 04:45] LABS: Add Urine Microscopic? YES; Appearance Urine Clear (Clear); Bilirubin Urine Negative (Negative); Blood Urine 2+ (Negative); Color Urine Light Yellow (Yellow); Glucose Urine UA Negative (Negative); Ketones Urine Negative (Negative); Leukocyte Esterase Ur 3+ LEU/UL (Negative); Nitrate Urine Positive (Negative); Protein Urine 1+ (Negative); Urobilinogen Urine 0.2 mg/dL (0.2-1.0); pH Urine 7.5 (5.0-8.0)
[2024-05-26 04:50] LABS: Bacteria Urine 2+ /hpf; RBC Urine >75 /hpf (0-2); Squamous Epithelial Cell Urine None seen /hpf (Few); WBC Urine >75 /hpf (0-3)
[2024-05-26] MEDS: SODIUM CHLORIDE 0.9% IV 1,000 ML 150 ML IV CONT (04:52)
--- NOTE | 2024-05-26 05:00 | PC.NURSE ---
Pt changed of wet linen, incontinent of urine. Pt was able to give urine specimen in urinal, still awaiting CT results.
[2024-05-26 05:14] VITALS: BP 112/56; PULSE 56; RESP 16; O2SAT 96
--- NOTE | 2024-05-26 06:11 | PC.NURSE ---
Pt sleeping, still awaiting CT results.
[2024-05-26 06:54] VITALS: BP 127/68; PULSE 54; RESP 16; TEMP 37; O2SAT 99
--- NOTE | 2024-05-26 07:00 | PC.NURSE ---
Pt resting comfortably, report given to MARY Arreola
[2024-05-26 08:30] VITALS: BP 131/64; PULSE 62; RESP 16; TEMP 36.8; O2SAT 98
[2024-05-26] MEDS: PIPERACILLIN/TAZ 2.25G/NS 50ML 2.25 GM/50 ML BAG IVPB (08:35)
[2024-05-26 09:45] VITALS: BP 125/66; PULSE 62; RESP 16; TEMP 36.6; O2SAT 98
--- NOTE | 2024-05-28 13:08 | PC.NURSE ---
FINAL URINE CULTURE REPORT: MIXED GENITAL MARKEL ISOLATED, NO FURTHER ORGANISM IDENTIFIED, NO FURTHER ACTION OR TREATMENT NEEDED.
--- NOTE | 2024-06-02 12:17 | PC.NURSE ---
FINAL BLOOD CULTURE REPORT: NO GROWTH AFTER 5 DAYS, NO FURTHER ACTION OR TREATMENT NEEDED.
== END 2024-05-26 09:45 | disposition short-term general hospital (02) ==
PROVIDERS: Emergency Medicine; Emergency Provider Emergency Medicine; PCP Internal Medicine
DX: N39.0 Urinary tract infection, site not specified (principal); N17.9 Acute kidney failure, unspecified; E86.0 Dehydration; N20.1 Calculus of ureter; J44.9 Chronic obstructive pulmonary disease, unspecified; E78.5 Hyperlipidemia, unspecified; I10 Essential (primary) hypertension; F03.90 Unspecified dementia, unspecified severity, without behavioral disturbance, psychotic disturbance, mood disturbance, and anxiety; Z79.899 Other long term (current) drug therapy
CPT/HCPCS: 36415; 71045; 74176; 80053; 81001; 83605; 85025; 85055; 87040; 87086; 87088; 96361; 96365; 96367; 99285; J2543; J7030

== ENCOUNTER 2024-05-26 10:30 | Inpatient (IN) | payer MEDICARE, SELFPAY ==
[2024-05-26] VITALS (11 sets, daily range): BP systolic 103–132; BP diastolic 44–70; PULSE 46–90; RESP 16–22; TEMP 35.8–36.4; O2SAT 95–99; BMI 29.6
--- NOTE | ~2024-05-26 | US_ITS ---
EXAMINATION: US venous doppler UE LT DATE: 05/28/2024 09:34 INDICATION: Left upper limb pain and edema. TECHNIQUE: Grayscale ultrasound images without and with compression and Doppler ultrasound images of the left upper extremity veins were obtained. COMPARISON: None. FINDINGS: The visualized portions of the left internal jugular vein, subclavian vein, axillary vein, brachial v eins, basilic vein, cephalic vein, radial vein, and ulnar vein are patent. IMPRESSION: 1. No deep venous thrombosis. Reviewed, dictated and finalized at location A.
--- NOTE | ~2024-05-26 | XR_ITS ---
EXAMINATION: XR retrograde pyelo w/stent LT DATE: 05/27/2024 8:00 CDT INDICATION: left stent . TECHNIQUE: 2 fluoroscopic images and 2 cine clips of the left abdomen and pelvis were obtained during left retrograde pyelography with stent placement, performed by Dr. Ríos. I was not present during t he procedure. Fluoroscopy exposure time was 33.4 seconds. Air Kerma 15.45 mGy. DAP 0.9-0 5 1 mGym2. COMPARISON: CT abdomen pelvis 05/26/2024 FINDINGS/IMPRESSION: Fluoroscopic documentation of left retrograde pyelography with stent placement. Please refer to the o perative note for complete procedural details . Reviewed, dictated and finalized at location K.
--- NOTE | ~2024-05-26 | XR_ITS ---
EXAMINATION: XR abdomen/kub 1V DATE: 05/28/2024 09:01 INDICATION: Kidney stone. TECHNIQUE: A supine view of the abdomen on 2 radiographs was obtained. COMPARISON: Abdomen radiographs 05/18/2024, CT abdomen and pelvis 05/26/2024 FINDINGS: There are no dilated loops of bowel. There is a stent graft in abdominal aorta. There are m ultiple stones in left kidney measuring up to 6 mm. There is a 7 x 5 mm stone in proximal left ureter . There is a left internal ureteral stent in expected position. There is a total left hip arthroplast y. There are surgical clips in right inguinal region. IMPRESSION: 1. 7 x 5 mm stone in proximal left ureter with left internal ureteral stent in expected position. 2. Left kidney stones. Reviewed, dictated and finalized at location A.
--- NOTE | 2024-05-26 10:53 | ADMGEN ---
This patient, Rodriguez Coleman, was admitted to 3 [facility] Surg Room 329-01. Patient/family oriented to hospital policies and general routines including ID bracelet, bed and alarms, visiting hours, pain management, procedures, bathroom and other care routines, personal items, smoking policy, room service/diet, and visiting hours. Information on how to activate the Rapid Response Team has been discussed. Patient/Family are encouraged to report perceived risks to care and to ask questions if they do not understand what they are told or what they should do. This pt admitted from [facility]. Pt accompanied by via [facility]. 20 RW IV present on arrival. Pt denies c/o pain, dizziness, nausea, vomiting. present. Report received from adm Rachelitting called. Provider John notified and to floor to admit.
--- NOTE | 2024-05-26 11:03 | PM.IMHP ---
H&P: HPI History of Present Illness Date/Time: 05/26/24 11:03 Chief Complaint: Generalized weakness Narrative: his is a 78-year-old gentleman with a past medical history significant for COPD, dementia, depression, dm 2, hyperlipidemia, hypertension, ADIS non-compliant with CPAP, CKD, and urinary incontinence who presented to an outside ER on account of generalized weakness. History was presented by who was present at bedside, as patient was mostly not responding to questions. Noted that patient underwent lithotripsy on 05/[address] Valenzuela and about 5 days had botox injection in the bladder. Noted that patient was fine until last night when he so weak he needed help with standing up and with most motor activities. Thus patient was taken to the outside ER for proper eval and care. Patient denies any chest pain, SOB, fever, abd pain, dysuria diarrhea or vomiting ER eval notable for stable vital signs wnl, labs notable for WBC 17.4, cr 2.25 baseline appears to be 1.6, UA positive Nitrate, Leukocyte esterase, pyuria. CXR unremarkable, CT AP showed left nephrolithiasis with obstructing 8x5 mm proximal stone with mild left hydronephrosis, small amount of gas, and aortoilliac stent graft spanning 3.5 similar to fusiform infrarenal abdominal aortic aneurysm. Patient was transferred for higher level of care [facility] Past Medical History Medical History COPD (chronic obstructive pulmonary disease) Dementia Depression DM2 (diabetes mellitus, type 2) Hyperlipidemia Hypertension ADIS (obstructive sleep apnea) Overweight Pedal edema (04/17/18) Urinary incontinence (10/03/17) Surgical History Surgical History History of hernia repair History of mitral valve repair 2014. [facility] [place] Hx of cataract surgery Right Eye Family History Family History Father , Age 86 Acute myocardial infarction Dementia Mother , Age 83 No problems noted. Other Family history of cardiovascular disease Social History Social History Smoking status: Never smoker Second hand tobacco smoke exposure: No Alcohol intake: never Substance use: never Substance use type: does not use Do You Feel Safe in your Home?: Yes Lack of Transportation: No Lack of Food: Never True Current Housing: I Have Housing Concerned About Future Housing: No Difficulty Paying Gas/Electric Bills: No Difficulty Paying for Meds: No Currently Unemployed: No Education: Decline to Answer Difficulty w/ Childcare or Family Care: No Living arrangements: with family Additional living arrangements comments: , Wilma is his emergency contact. 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 Gender identity (if verbalized by the patient): Male Spiritual care concerns: No Meds Home Medications and Allergies Home Medications Medication Instructions Recorded Confirmed Type memantine 10 mg tablet (Namenda) 10 mg PO Q12H 07/13/19 05/26/24 History rosuvastatin 20 mg tablet 20 mg PO DAILY 07/13/19 05/26/24 History aspirin 81 mg tablet,delayed 81 mg PO DAILY 01/14/22 05/25/24 History release donepezil 10 mg tablet 10 mg PO QHS 01/14/22 05/26/24 History multivit with min-folic 1 tablet PO DAILY 01/14/22 05/25/24 History acid-lutein 400 mcg-250 mcg chewable tablet (Centrum Silver) Anoro Ellipta 62.5 mcg-25 1 inh inhalation Q24H #60 ea 11/12/22 05/26/24 Rx mcg/actuation powder for inhalation (umeclidinium-vilanterol) potassium citrate 10 mEq (1,080 10 meq PO DAILY 05/01/23 05/26/24 History mg) tablet,extended release semaglutide 3 mg tablet (Rybelsus) 3 mg PO EVERY OTHER DAY 05/01/23 05/26/24 History oxy
[2024-05-26 12:00] LABS: Basophils Absolute Auto 0.1 K/mm3 (0.0-0.1); Basophils Percent Auto 0.5 % (0.2-1.2); Eosinophils Absolute Auto 0.1 K/mm3 (0-0.3); Eosinophils Percent Auto 0.5 % (0-4.4); Hemoglobin 14.8 g/dL (14.0-18.0); Immature Granulocyte Absolute 0.08 K/mm3 (0.00-0.031); Immature Granulocyte Percent A 0.6 % (0-0.5); Lymphocytes Absolute Auto 1.77 K/mm3 (0.9-3.2); Lymphocytes Percent Auto 13.8 % (18.3-44.2); Mean Corpuscular HGB Conc 32.2 g/dl (32-36); Mean Corpuscular Hemoglobin 28.7 pg (26-34); Mean Corpuscular Volume 89.3 fl (80-100); Mean Platelet Volume 10.9 fl (7.4-10.4); Monocytes Absolute Auto 1.2 K/mm3 (0.1-0.6); Monocytes Percent Auto 9.6 % (2.6-8.5); Neutrophils Absolute Auto 9.6 K/mm3 (1.3-6.7); Platelet Count Result 106 k/mm3 (150-375); Red Blood Count 5.15 M/mm3 (4.6-6.20); Red Cell Distribution Width 15.3 % (11.5-14.5); White Blood Count 12.8 K/mm3 (4.5-10.0)
[2024-05-26 12:06] LABS: Glucose Point of Care 118 mg/dl (65-105)
[2024-05-26 12:07] LABS: Alanine Aminotransferase 16 U/L (6-50); Alkaline Phosphatase 72 U/L (38-126); Anion Gap 7 mmol/L (4-12); Aspartate Amino Transferase 23 U/L (17-59); Bilirubin,Total 1.4 mg/dL (0.2-1.3); Blood Urea Nitrogen 35 mg/dL (9-20); Calcium 9.7 mg/dL (8.4-10.2); Carbon Dioxide 27 mmol/L (22-30); Chloride 105 mmol/L (98-107); Estimated CRCL calculation 31 ml/min; Estimated Glomerular Filt Rate 32; Glucose 127 mg/dL (65-110); Magnesium 2.4 mg/dL (1.6-2.3); Potassium 4.3 mmol/L (3.4-5.0); Sodium 139 mmol/L (137-145)
[2024-05-26] MEDS: DEXTROSE 5%/0.9% SOD CHL 1,000 ML 75 ML IV CONT (13:12)
[2024-05-26] MEDS: MEROPENEM 1 GM/NS 100 ML 1 GM/100 ML BAG IVPB ×2 (13:15→20:36)
[2024-05-26] MEDS: UMECLIDINIUM/VILANTEROL 62.5-25 MCG ELLIPTA 1 PUFF INHALATION (14:16)
[2024-05-26] MEDS: IPRATROPIUM 0.5 MG/ALBUTEROL SULFATE 2.5 MG AMPUL.NEB 3 ML NEBULIZE ×2 (14:16→20:08)
[2024-05-26 16:50] LABS: Glucose Point of Care 117 mg/dl (65-105)
[2024-05-26 20:16] LABS: Glucose Point of Care 131 mg/dl (65-105)
[2024-05-26] MEDS: DONEPEZIL HCL 10 MG TABLET PO (20:35)
[2024-05-26] MEDS: MEMANTINE 10 MG TABLET PO (20:35)
[2024-05-27] VITALS (22 sets, daily range): BP systolic 112–161; BP diastolic 54–75; PULSE 48–94; RESP 12–20; TEMP 35.4–37.2; O2SAT 93–100
[2024-05-27] MEDS: IPRATROPIUM 0.5 MG/ALBUTEROL SULFATE 2.5 MG AMPUL.NEB 3 ML NEBULIZE ×3 (01:47→21:11)
[2024-05-27] MEDS: DEXTROSE 5%/0.9% SOD CHL 1,000 ML 75 ML IV CONT ×2 (03:21→22:12)
--- NOTE | 2024-05-27 07:15 | PC.NURSE ---
Pt is out for surgery
--- NOTE | 2024-05-27 07:29 | WPDURCON ---
Assessment and Plan Assessment and plan (1) Hydronephrosis, left: Code(s): N13.30 - Unspecified hydronephrosis Status: Acute Plan Patient will undergo left stent placement to alleviate the obstruction Await culture results Plan on definitive treatment of stone in near future Urology Consult Note HPI Date Seen: 05/27/24 Requesting Physician: Nicole Lopez MD Primary Care Provider: Alonzo Campoverde MD Consult Narrative Narrative: Rodriguez Coleman is a 79 year old male who presented with left flank pain. Recently underwent ESWL by Dr Valenzuela for a left kidney stone. Left flank pain had worsened recently. He visited outside hospital where CT revealed an obstructing left ureter stone causing severe hydronephrosis. WBC elevated. PMFSH Past Medical History Medical History COPD (chronic obstructive pulmonary disease) Dementia Depression DM2 (diabetes mellitus, type 2) Hyperlipidemia Hypertension ADIS (obstructive sleep apnea) Overweight Pedal edema (04/17/18) Urinary incontinence (10/03/17) Surgical History Surgical History History of hernia repair History of mitral valve repair 2014. [facility] Hx of cataract surgery Right Eye Family History Family History Father , Age 86 Acute myocardial infarction Dementia Mother , Age 83 No problems noted. Other Family history of cardiovascular disease Social History Social History Smoking status: Never smoker Second hand tobacco smoke exposure: No Alcohol intake: never Substance use: never Substance use type: does not use Do You Feel Safe in your Home?: Yes Lack of Transportation: No Lack of Food: Never True Current Housing: I Have Housing Concerned About Future Housing: No Difficulty Paying Gas/Electric Bills: No Difficulty Paying for Meds: No Currently Unemployed: No Education: Decline to Answer Difficulty w/ Childcare or Family Care: No Living arrangements: with family Additional living arrangements comments: , Wilma is his emergency contact. 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 Gender identity (if verbalized by the patient): Male Spiritual care concerns: No Meds Home Medications and Allergies Home Medications Medication Instructions Recorded Confirmed Type memantine 10 mg tablet (Namenda) 10 mg PO Q12H 07/13/19 05/26/24 History rosuvastatin 20 mg tablet 20 mg PO DAILY 07/13/19 05/26/24 History aspirin 81 mg tablet,delayed 81 mg PO DAILY 01/14/22 05/26/24 History release donepezil 10 mg tablet 10 mg PO QHS 01/14/22 05/26/24 History multivit with min-folic 1 tablet PO DAILY 01/14/22 05/26/24 History acid-lutein 400 mcg-250 mcg chewable tablet (Centrum Silver) Anoro Ellipta 62.5 mcg-25 1 inh inhalation Q24H #60 ea 11/12/22 05/26/24 Rx mcg/actuation powder for inhalation (umeclidinium-vilanterol) potassium citrate 10 mEq (1,080 10 meq PO DAILY 05/01/23 05/26/24 History mg) tablet,extended release semaglutide 3 mg tablet (Rybelsus) 3 mg PO EVERY OTHER DAY 05/01/23 05/26/24 History oxybutynin chloride 5 mg tablet 5 mg PO TID 05/15/23 05/26/24 History magnesium oxide 400 mg (241.3 mg 400 mg PO BID #180 tabs 09/27/23 05/26/24 Rx magnesium) tablet citalopram 10 mg tablet 10 mg PO DAILY 04/16/24 05/26/24 History furosemide 20 mg tablet 20 mg PO DAILY 04/16/24 05/26/24 History loratadine 10 mg tablet (Claritin) 10 mg PO DAILY 04/16/24 05/26/24 History Allergies Allergy/AdvReac Type Severity Reaction Status Date / Time No Known Allergies Allergy Verified 05/26/24 11:03 Vital Signs Vital Signs - 24 hr 05/26/24 10:4
--- NOTE | 2024-05-27 07:34 | WPDANESEPPF ---
Anes - Initial Pre Proc Eval Procedure: Operation Date: 05/27/24 07:30 Proposed Procedures p Cysto, RPG, Stone Ext, Stent Placement(Left) - Tulio Ríos MD Date/Time: 05/27/24 07:34 Surgeon: Nicole Lopez MD Pre Op Diagnosis: UTI, Weakness Patient Data Age: 79 Gender: M Height: 1.85 m Weight: 102 kg Last Vital Signs Temp 98.3 F 05/27/24 04:00 Pulse 55 L 05/27/24 04:00 Resp 18 05/27/24 04:00 BP 120/61 05/27/24 04:00 Pulse Ox 98 05/27/24 04:00 O2 Del Method Room Air 05/26/24 20:11 Allergies Allergy/AdvReac Type Severity Reaction Status Date / Time No Known Allergies Allergy Verified 05/26/24 11:03 Home Medications Medication Instructions Recorded Confirmed Type memantine 10 mg tablet (Namenda) 10 mg PO Q12H 07/13/19 05/26/24 History rosuvastatin 20 mg tablet 20 mg PO DAILY 07/13/19 05/26/24 History aspirin 81 mg tablet,delayed 81 mg PO DAILY 01/14/22 05/26/24 History release donepezil 10 mg tablet 10 mg PO QHS 01/14/22 05/26/24 History multivit with min-folic 1 tablet PO DAILY 01/14/22 05/26/24 History acid-lutein 400 mcg-250 mcg chewable tablet (Centrum Silver) Anoro Ellipta 62.5 mcg-25 1 inh inhalation Q24H #60 ea 11/12/22 05/26/24 Rx mcg/actuation powder for inhalation (umeclidinium-vilanterol) potassium citrate 10 mEq (1,080 10 meq PO DAILY 05/01/23 05/26/24 History mg) tablet,extended release semaglutide 3 mg tablet (Rybelsus) 3 mg PO EVERY OTHER DAY 05/01/23 05/26/24 History oxybutynin chloride 5 mg tablet 5 mg PO TID 05/15/23 05/26/24 History magnesium oxide 400 mg (241.3 mg 400 mg PO BID #180 tabs 09/27/23 05/26/24 Rx magnesium) tablet citalopram 10 mg tablet 10 mg PO DAILY 04/16/24 05/26/24 History furosemide 20 mg tablet 20 mg PO DAILY 04/16/24 05/26/24 History loratadine 10 mg tablet (Claritin) 10 mg PO DAILY 04/16/24 05/26/24 History Laboratory Tests 05/26/24 05/26/24 05/26/24 11:29 11:53 16:44 WBC 12.8 H K/mm3 (4.5-10.0) RBC 5.15 M/mm3 (4.6-6.20) Hgb 14.8 g/dL (14.0-18.0) Hct 46.0 % (42.0-52.0) MCV 89.3 fl (80-100) MCH 28.7 pg (26-34) MCHC 32.2 g/dl (32-36) RDW 15.3 H % (11.5-14.5) Plt Count 106 L k/mm3 (150-375) MPV 10.9 H fl (7.4-10.4) Immature Gran % (Auto) 0.6 H % (0-0.5) Neut % (Auto) 75.0 H % (45.5-73.1) Lymph % (Auto) 13.8 L % (18.3-44.2) [place] % (Auto) 9.6 H % (2.6-8.5) Eos % (Auto) 0.5 % (0-4.4) Baso % (Auto) 0.5 % (0.2-1.2) Lymph # (Auto) 1.77 K/mm3 (0.9-3.2) [place] # (Auto) 1.2 H K/mm3 (0.1-0.6) Eos # (Auto) 0.1 K/mm3 (0-0.3) Baso # (Auto) 0.1 K/mm3 (0.0-0.1) Abs Immat Gran (auto) 0.08 H K/mm3 (0.00-0.031) Absolute Neuts (auto) 9.6 H K/mm3 (1.3-6.7) Absolute Nucleated RBC 0.000 K/mm3 (0.0-0.012) Nucleated RBC % 0.0 % (0.0-0.2) % Immature Plt Fraction 4.0 % (0.9-11.2) Sodium 139 mmol/L (137-145) Potassium 4.3 mmol/L (3.4-5.0) Chloride 105 mmol/L (98-107) Carbon Dioxide 27 mmol/L (22-30) Anion Gap 7 mmol/L (4-12) BUN 35 H mg/dL (9-20) Creatinine 2.00 H mg/dL (0.7-1.3) Estim Creat Clear Calc 31 ml/min Estimated GFR 32 L (59 - ) Glucose 127 H mg/dL (65-110) POC Capillary Glucose 118 H mg/dl 117 H mg/dl (65-105) (65-105) Lactic Acid 1.0 mmol/L (0.7-2.0) Calcium 9.7 mg/dL (8.4-10.2) Magnesium 2.4 H mg/dL (1.6-2.3) Total Bilirubin 1.4 H mg/dL (0.2-1.3) AST 23 U/L (17-59) ALT 16 U/L (6-50) Alkaline Phosphatase 72 U/L (38-126) Total Protein 8.0 g/dL (6.3-8.2) Albumin 4.0 g/dL (3.5-5.1)
--- NOTE | 2024-05-27 07:44 | WPDHPUPDATE1 ---
History and Physical Update Update Date/Time: 05/27/24 07:44 History and Physical has been reviewed, including an updated exam of the patient. There are NO changes in the patient's condition. Risks, benefits, and alternatives have been discussed and questions answered. Patient agrees to proceed with procedure. Will proceed with left stent placement to unobstruct the left kidney.
--- NOTE | 2024-05-27 07:45 | PCRCNOTE ---
Pt did not receive Duoneb or Anoro txs this morning due to being off unit for procedure in surgery. RT will check back this afternoon for next scheduled dose.
[2024-05-27] MEDS: LACTATED RINGERS 1,000 ML 30 ML IV CONT (07:50)
--- NOTE | 2024-05-27 08:00 | PC.NURSE ---
tele was not done for 0800 since pt is in surgery
[2024-05-27] MEDS: ceFAZolin SODIUM 1 GM VIAL 2 GM IV PUSH (08:02)
[2024-05-27] MEDS: LIDOCAINE HCL 2% GEL UROJET 10 ML PKG MUCOUS MEM (08:05)
--- NOTE | 2024-05-27 08:15 | W.PM.PROC2 ---
Procedure Note - Detailed Date of Procedure 05/27/24 Pre-op Diagnosis UTI, Weakness, left hydronephrosis and left ureter stone Post-op Diagnosis Same Procedure Performed Cystoscopy, left retrograde pyelogram, left stent placement Surgeon Mulugeta Ríos MD Anesthesia General Indications Patient presented to outside hospital with left flank pain. CT Noted an 8mm left ureter stone with severe hydronephrosis and evidence of UTI. Proceeding with decompression of left collecting system Findings 8mm left proximal ureter with dilation proximal to stone. Pyuria noted in bladder Description of Procedure After consent obtained and preoperative antibiotics administered, patient was taken to the OR and placed in a dorsal lithotomy position. He was prepped and draped in a sterile fashion. Viscous lidocaine was administered for local anesthetic. 22Fr cystoscope was inserted into the urethra. BPH was noted. Upon entrance into the bladder, it was inspected. No evidence of a tumor or stone. Bladder was mildly erythematous throughout and pyuria was encountered as well. Left ureteral orifice was identified and a 5Fr angiographic catheter was inserted. A retrograde pyelogram was performed. Left proximal ureter filling defect noted. Dilation of left proximal ureter and renal pelvis noted as well. A zip wire was inserted through the angiographic and gained access to the left upper pole of the kidney. At that time a 6Fr variable stent was placed over the wire with a coil noted in the left renal pelvis and bladder on flouroscopy. At that point, the cystoscope was removed. Patient tolerated the procedure well. Implants 6Fr variable ureteral stent Estimated Blood Loss 0 Complications No immediate complications Disposition PACU
[2024-05-27 08:38] LABS: Glucose Point of Care 104 mg/dl (65-105)
--- NOTE | 2024-05-27 08:47 | SUR.PHASEI ---
Simple mask removed at 0845
[2024-05-27] MEDS: MEROPENEM 1 GM/NS 100 ML 1 GM/100 ML BAG IVPB ×2 (10:24→22:03)
[2024-05-27] MEDS: CITALOPRAM HYDROBROMIDE 10 MG TABLET PO (10:25)
[2024-05-27] MEDS: MEMANTINE 10 MG TABLET PO ×2 (10:25→21:59)
[2024-05-27] MEDS: ROSUVASTATIN 20 MG TABLET PO (10:25)
[2024-05-27 11:30] LABS: Glucose Point of Care 156 mg/dl (65-105)
--- NOTE | 2024-05-27 13:45 | PC.NURSE ---
Dextrose 5% was restarted when pt arrived back to floor
--- NOTE | 2024-05-27 13:53 | PM.IMPN ---
Progress Note: A&P Assessment and Plan (1) Left renal stone: Code(s): N20.0 - Calculus of kidney Status: Acute (2) Pyelonephritis: Code(s): N12 - Tubulo-interstitial nephritis, not specified as acute or chronic Status: Acute Plan Left pyelonephritis Obstructing left kidney stone with hydronephrosis CT scan reviewed Left CVA tenderness s/p cystoscopy with stent placement Bloody urine culture pending On Meropenem urology following monitor BRANDON on CKD Creatinine is 2.0, baseline is 1.6. IV fluid, encourage oral intake and mannitol Avoid nephrotoxins. Type 2 diabetes Sliding scale insulin with Accu-Cheks and adjust the clinical course Coronary artery disease Continue home medications. COPD Continue home bronchodilators Obstructive sleep apnea Continue CPAP Depression and dementia Continue medications. Hypertension Titrate her medications with clinical course AAA s/p graft monitor DVT prophylaxis subQ Lovenox. Full code Surrogate decision maker is Wilma Coleman Subjective Date/time seen: 05/27/24 13:53 Interval history: Comfortable at bedside S/p stent placement and urine culture pending Exam Narrative: General: alert and comfortable Eyes: EOMI, PERRLA ENNT External ears normal, Neck is supple, no masses, Respiratory systems: Clear to auscultation Cardiovascular S1, S2, normal rhythm, no murmur, rub, or gallop; no thrill or palpable murmurs on palpation. Gastrointestinal: soft, non-tender, and non-distended abdomen with no masses; BS present Skin: no rash, lesions, ulcerations, subcutaneous nodules or induration Musculoskeletal: no abnormality and no tenderness, normal ROM Neurologic: Alert and oriented x3, non focal UG exam: left CVA tenderness present Objective Data Vital Signs Vital Signs: Vital Signs - 24 hr 05/26/24 14:16 05/26/24 14:00 05/26/24 14:26 Temperature 96.4 F L Pulse Rate 54 L 56 L 52 L Respiratory Rate 16 16 16 Blood Pressure 103/44 L Pulse Oximetry 99 Oxygen Delivery Oxygen Flow Rate Fraction of Inspired Oxygen 05/26/24 16:00 05/26/24 20:10 05/26/24 20:11 Temperature Pulse Rate 46 L 58 L Respiratory Rate 17 Blood Pressure Pulse Oximetry 95 Oxygen Delivery Room Air Oxygen Flow Rate Fraction of Inspired Oxygen 05/26/24 20:16 05/26/24 20:47 05/26/24 20:00 Temperature 97.5 F L Pulse Rate 52 L 59 L 60 Respiratory Rate 17 22 H Blood Pressure 132/70 Pulse Oximetry 99 Oxygen Delivery Oxygen Flow Rate Fraction of Inspired Oxygen 05/27/24 00:00 05/27/24 00:00 05/27/24 01:48 Temperature 98.5 F Pulse Rate 56 L 62 55 L Respiratory Rate 20 17 Blood Pressure 147/72 H Pulse Oximetry 97 Oxygen Delivery Oxygen Flow Rate Fraction of Inspired Oxygen 05/27/24 01:55 05/27/24 04:00 05/27/24 04:00 Temperature 98.3 F Pulse Rate 54 L 63 55 L Respiratory Rate 17 18 Blood Pressure 120/61 Pulse Oximetry 98 Oxygen Delivery Oxygen Flow Rate Fraction of Inspired Oxygen 05/27/24 08:25 05/27/24 08:40 05/27/24 08:55 Temperature 99 F Pulse Rate 52 L 50 L 52 L Respiratory Rate 18 16 20 Blood Pressure 126/60 129/65 125/58 L Pulse Oximetry 100 100 100 Oxygen Delivery Simple Face Mask Simple Face Mask Room Air Oxygen Flow Rate 8 8 Fraction of Inspired Oxygen 05/27/24 09:10 05/27/24 09:25 05/27/24 09:34 Temperature 97.8 F Pulse Rate 54 L 52 L 54 L Respiratory Rate 20 16 18 Blood Pressure 119/60 120/69 129/66 Pulse Oximetry 99 100 99 Oxygen Delivery Room Air Room Air Room Air Oxygen Flow Rate Fraction of Inspired Oxygen 05/27/24 10:40 05/27/24 10:55 05/27/24 11:25 Temperature 96.7 F L 96.7 F L 96.4 F L Pulse Rate 50 L 50 L 53 L Respiratory Rate 16 16 16 Blood Pressure 126/69 112/60 118/54 L Pulse Oximetry 99 99 99 Oxygen Delivery Oxygen Flow Rate Fraction of Inspired Oxy
--- NOTE | 2024-05-27 17:04 | PC.NURSE ---
RN called the combination building inspector physician for Dr. Ríos and spoke with the exchange
[2024-05-27 17:05] LABS: Glucose Point of Care 138 mg/dl (65-105)
[2024-05-27 20:07] LABS: Glucose Point of Care 148 mg/dl (65-105)
[2024-05-27] MEDS: DONEPEZIL HCL 10 MG TABLET PO (21:59)
[2024-05-27] MEDS: TAMSULOSIN HCL 0.4 MG CAPSULE PO (21:59)
[2024-05-28] VITALS (18 sets, daily range): BP systolic 99–158; BP diastolic 55–83; PULSE 50–89; RESP 6–20; TEMP 35–37.1; O2SAT 93–100
[2024-05-28] MEDS: IPRATROPIUM 0.5 MG/ALBUTEROL SULFATE 2.5 MG AMPUL.NEB 3 ML NEBULIZE ×4 (02:57→20:58)
[2024-05-28 06:39] LABS: Basophils Percent Auto 0.5 % (0.2-1.2); Eosinophils Absolute Auto 0.2 K/mm3 (0-0.3); Eosinophils Percent Auto 2.7 % (0-4.4); Hematocrit 43.4 % (42.0-52.0); Hemoglobin 13.9 g/dL (14.0-18.0); Immature Granulocyte Absolute 0.05 K/mm3 (0.00-0.031); Immature Granulocyte Percent A 0.7 % (0-0.5); Immature Platelet Fraction Pct 3.8 % (0.9-11.2); Lymphocytes Absolute Auto 1.23 K/mm3 (0.9-3.2); Lymphocytes Percent Auto 16.6 % (18.3-44.2); Mean Corpuscular Hemoglobin 28.5 pg (26-34); Mean Corpuscular Volume 88.9 fl (80-100); Mean Platelet Volume 10.4 fl (7.4-10.4); Monocytes Absolute Auto 0.6 K/mm3 (0.1-0.6); Monocytes Percent Auto 8.5 % (2.6-8.5); Neutrophils Absolute Auto 5.3 K/mm3 (1.3-6.7); Platelet Count Result 110 k/mm3 (150-375); Red Blood Count 4.88 M/mm3 (4.6-6.20); White Blood Count 7.4 K/mm3 (4.5-10.0)
[2024-05-28 07:01] LABS: Alanine Aminotransferase 35 U/L (6-50); Albumin Level 3.5 g/dL (3.5-5.1); Alkaline Phosphatase 74 U/L (38-126); Anion Gap 8 mmol/L (4-12); Aspartate Amino Transferase 42 U/L (17-59); Bilirubin,Total 0.7 mg/dL (0.2-1.3); Blood Urea Nitrogen 20 mg/dL (9-20); Calcium 9.2 mg/dL (8.4-10.2); Carbon Dioxide 24 mmol/L (22-30); Chloride 108 mmol/L (98-107); Estimated CRCL calculation 51 ml/min; Estimated Glomerular Filt Rate 59; Glucose 140 mg/dL (65-110); Magnesium 1.8 mg/dL (1.6-2.3); Potassium 4.1 mmol/L (3.4-5.0); Sodium 140 mmol/L (137-145)
[2024-05-28 07:44] LABS: Glucose Point of Care 147 mg/dl (65-105)
[2024-05-28] MEDS: UMECLIDINIUM/VILANTEROL 62.5-25 MCG ELLIPTA 1 PUFF INHALATION (07:45)
--- NOTE | 2024-05-28 08:31 | WPDUROPN2 ---
Progress Note: A&P Assessment and Plan (1) Ureteral stone: Code(s): N20.1 - Calculus of ureter Status: Acute Assessment and Plan: stent in place. Definitive stone management as an outpatient. likely ureteroscopy. Had a lithotripsy last month and has large residual stone fragment (2) Abnormal urinalysis: Code(s): R82.90 - Unspecified abnormal findings in urine Status: Acute Assessment and Plan: urine cultures pending. Treat with culture specific antibiotics for 10-14 days Subjective Subjective Date/Time Seen: 05/28/24 08:31 Interval history: Tolerating stent. Cultures are pending. He does have a history of asymptomatic bacteriuria, but I would recommend treatment in this scenario Exam Narrative: no acute distress left upper extremity edema due to infiltrated IV Objective Data Vital Signs Vital Signs: Vital Signs - 24 hr 05/27/24 08:40 05/27/24 08:55 05/27/24 09:10 Temperature Pulse Rate 50 L 52 L 54 L Respiratory Rate 16 20 20 Blood Pressure 129/65 125/58 L 119/60 Pulse Oximetry 100 100 99 Oxygen Delivery Simple Face Mask Room Air Room Air Oxygen Flow Rate 8 Fraction of Inspired Oxygen 05/27/24 09:25 05/27/24 09:34 05/27/24 10:40 Temperature 97.8 F 96.7 F L Pulse Rate 52 L 54 L 50 L Respiratory Rate 16 18 16 Blood Pressure 120/69 129/66 126/69 Pulse Oximetry 100 99 99 Oxygen Delivery Room Air Room Air Oxygen Flow Rate Fraction of Inspired Oxygen 05/27/24 10:55 05/27/24 11:25 05/27/24 12:25 Temperature 96.7 F L 96.4 F L 96.2 F L Pulse Rate 50 L 53 L 53 L Respiratory Rate 16 16 16 Blood Pressure 112/60 118/54 L 128/56 L Pulse Oximetry 99 99 99 Oxygen Delivery Oxygen Flow Rate Fraction of Inspired Oxygen 05/27/24 13:49 05/27/24 13:49 05/27/24 13:54 Temperature Pulse Rate 50 L 56 L Respiratory Rate 12 12 Blood Pressure Pulse Oximetry 95 Oxygen Delivery Room Air Oxygen Flow Rate Fraction of Inspired Oxygen 21 05/27/24 12:00 05/27/24 16:00 05/27/24 16:00 Temperature 95.8 F L Pulse Rate 53 L 55 L 54 L Respiratory Rate 16 Blood Pressure 148/68 H Pulse Oximetry 100 Oxygen Delivery Oxygen Flow Rate Fraction of Inspired Oxygen 05/27/24 21:11 05/27/24 21:11 05/27/24 21:19 Temperature Pulse Rate 51 L 60 Respiratory Rate 16 16 Blood Pressure Pulse Oximetry 93 Oxygen Delivery Room Air Oxygen Flow Rate Fraction of Inspired Oxygen 05/27/24 22:30 05/28/24 01:30 05/27/24 20:00 Temperature 96.6 F L 98.8 F Pulse Rate 94 59 L 48 L Respiratory Rate 20 20 Blood Pressure 161/75 H 158/70 H Pulse Oximetry 100 97 Oxygen Delivery Oxygen Flow Rate Fraction of Inspired Oxygen 05/28/24 00:00 05/28/24 02:57 05/28/24 03:04 Temperature Pulse Rate 55 L 55 L 52 L Respiratory Rate 16 16 Blood Pressure Pulse Oximetry Oxygen Delivery Oxygen Flow Rate Fraction of Inspired Oxygen 05/28/24 04:00 05/28/24 05:55 05/28/24 07:39 Temperature 96.9 F L Pulse Rate 57 L 54 L Respiratory Rate 20 Blood Pressure 135/72 Pulse Oximetry 100 95 Oxygen Delivery Room Air Oxygen Flow Rate Fraction of Inspired Oxygen 21 05/28/24 07:39 05/28/24 07:45 Temperature Pulse Rate 50 L 54 L Respiratory Rate 16 16 Blood Pressure Pulse Oximetry Oxygen Delivery Oxygen Flow Rate Fraction of Inspired Oxygen Intake/Output Intake/Output: Intake & Output 05/25/24 05/26/24 05/27/24 05/28/24 23:59 23:59 23:59 23:59 Intake Total 580 3030 300 Output Total 525 Balance 580 3030 -225 Meds/Results Medications: Active Medications Generic Name Dose Route Start Last Admin Trade Name Freq PRN Reason Stop Dose Admin Hydrocodone Bitart/Acetaminophen 1 tab 05/27/24 17:17 Hydrocodone/Acetaminophen (*Crx) 5-325 Mg Tablet PO Q4H PRN Pain Rated 4-6 Albuterol/Ipratropium 3 ml 05/26/24 14:00
--- NOTE | 2024-05-28 09:08 | WPDANESPN ---
Anes - Prog Note Post-Op Date/Time: 05/28/24 09:08 Cardiovascular status: normal Respiratory status: normal Airway patency: baseline Mental status: baseline Post-Op hydration status: normal Vital Signs: Last Vital Signs Temp 36.1 C L 05/28/24 05:55 Pulse 72 05/28/24 08:00 Resp 18 05/28/24 08:00 BP 99/55 L 05/28/24 08:00 Pulse Ox 100 05/28/24 08:00 O2 Del Method Room Air 05/28/24 07:39 O2 Flow Rate 8 05/27/24 08:40 FiO2 21 05/28/24 07:39 Pain Score (VAS): 1 I/O: Intake & Output 05/27/24 05/28/24 05/28/24 23:59 07:59 15:59 Intake Total 1000 300 240 Output Total 525 Balance 1000 -225 240 Laboratory Tests 05/28/24 06:21 05/28/24 06:21 05/27/24 05/27/24 05/27/24 11:20 16:55 20:00 WBC RBC Hgb Hct MCV MCH MCHC RDW Plt Count MPV Immature Gran % (Auto) Neut % (Auto) Lymph % (Auto) Giles % (Auto) Eos % (Auto) Baso % (Auto) Lymph # (Auto) Giles # (Auto) Eos # (Auto) Baso # (Auto) Abs Immat Gran (auto) Absolute Neuts (auto) Absolute Nucleated RBC Nucleated RBC % % Immature Plt Fraction Sodium Potassium Chloride Carbon Dioxide Anion Gap BUN Creatinine Estim Creat Clear Calc Estimated GFR Glucose POC Capillary Glucose 156 H 138 H 148 H Calcium Magnesium Total Bilirubin AST ALT Alkaline Phosphatase Total Protein Albumin 05/28/24 05/28/24 06:21 07:39 WBC 7.4 RBC 4.88 Hgb 13.9 L Hct 43.4 MCV 88.9 MCH 28.5 MCHC 32.0 RDW 15.0 H Plt Count 110 L MPV 10.4 Immature Gran % (Auto) 0.7 H Neut % (Auto) 71.0 Lymph % (Auto) 16.6 L Giles % (Auto) 8.5 Eos % (Auto) 2.7 Baso % (Auto) 0.5 Lymph # (Auto) 1.23 Giles # (Auto) 0.6 Eos # (Auto) 0.2 Baso # (Auto) 0.0 Abs Immat Gran (auto) 0.05 H Absolute Neuts (auto) 5.3 Absolute Nucleated RBC 0.000 Nucleated RBC % 0.0 % Immature Plt Fraction 3.8 Sodium 140 Potassium 4.1 Chloride 108 H Carbon Dioxide 24 Anion Gap 8 BUN 20 D Creatinine 1.20 Estim Creat Clear Calc 51 Estimated GFR 59 Glucose 140 H POC Capillary Glucose 147 H Calcium 9.2 Magnesium 1.8 Total Bilirubin 0.7 AST 42 ALT 35 Alkaline Phosphatase 74 Total Protein 7.0 Albumin 3.5 Microbiology 05/26/24 11:43 Blood Blood Culture - Preliminary 05/26/24 11:29 Blood Blood Culture - Preliminary Post-procedural complaints: none Patient Feedback: Patient satisfied with anesthetic care.
[2024-05-28] MEDS: MEROPENEM 1 GM/NS 100 ML 1 GM/100 ML BAG IVPB ×2 (10:27→20:35)
[2024-05-28] MEDS: ROSUVASTATIN 20 MG TABLET PO (10:27)
[2024-05-28] MEDS: CITALOPRAM HYDROBROMIDE 10 MG TABLET PO (10:27)
[2024-05-28] MEDS: MEMANTINE 10 MG TABLET PO ×2 (10:28→20:35)
[2024-05-28] MEDS: TAMSULOSIN HCL 0.4 MG CAPSULE PO (10:28)
[2024-05-28 11:08] LABS: Glucose Point of Care 186 mg/dl (65-105)
--- NOTE | 2024-05-28 12:36 | PM.IMPN ---
Progress Note: A&P Assessment and Plan (1) Left renal stone: Code(s): N20.0 - Calculus of kidney Status: Acute (2) Pyelonephritis: Code(s): N12 - Tubulo-interstitial nephritis, not specified as acute or chronic Status: Acute Plan Left pyelonephritis Obstructing left kidney stone with hydronephrosis CT scan reviewed Left CVA tenderness s/p cystoscopy with left ureteral stent placement Bloody urine culture pending On Meropenem urology following monitor BRANDON on CKD Creatinine is 1.20, baseline is 1.6. IV fluid, encourage oral intake and mannitol Avoid nephrotoxins. Type 2 diabetes Sliding scale insulin with Accu-Cheks and adjust the clinical course Coronary artery disease Continue home medications. COPD Continue home bronchodilators Obstructive sleep apnea Continue CPAP Depression and dementia Continue medications. Hypertension Titrate her medications with clinical course AAA s/p graft monitor DVT prophylaxis subQ Lovenox. Full code Surrogate decision maker is Wilma Coleman Subjective Date/time seen: 05/28/24 12:36 Interval history: Patient comfortable at bedside s/p ureteral stent placement and awaiting urine culture Exam Narrative: General: alert and comfortable Eyes: EOMI, PERRLA ENNT External ears normal, Neck is supple, no masses, Respiratory systems: Clear to auscultation Cardiovascular S1, S2, normal rhythm, no murmur, rub, or gallop; no thrill or palpable murmurs on palpation. Gastrointestinal: soft, non-tender, and non-distended abdomen with no masses; BS present Skin: no rash, lesions, ulcerations, subcutaneous nodules or induration Musculoskeletal: no abnormality and no tenderness, normal ROM Neurologic: Alert and oriented x3, non focal UG exam: left CVA tenderness present Objective Data Vital Signs Vital Signs: Vital Signs - 24 hr 05/27/24 13:49 05/27/24 13:49 05/27/24 13:54 Temperature Pulse Rate 50 L 56 L Respiratory Rate 12 12 Blood Pressure Pulse Oximetry 95 Oxygen Delivery Room Air Fraction of Inspired Oxygen 21 05/27/24 16:00 05/27/24 16:00 05/27/24 21:11 Temperature 95.8 F L Pulse Rate 55 L 54 L Respiratory Rate 16 Blood Pressure 148/68 H Pulse Oximetry 100 93 Oxygen Delivery Room Air Fraction of Inspired Oxygen 05/27/24 21:11 05/27/24 21:19 05/27/24 22:30 Temperature 96.6 F L Pulse Rate 51 L 60 94 Respiratory Rate 16 16 20 Blood Pressure 161/75 H Pulse Oximetry 100 Oxygen Delivery Fraction of Inspired Oxygen 05/28/24 01:30 05/27/24 20:00 05/28/24 00:00 Temperature 98.8 F Pulse Rate 59 L 48 L 55 L Respiratory Rate 20 Blood Pressure 158/70 H Pulse Oximetry 97 Oxygen Delivery Fraction of Inspired Oxygen 05/28/24 02:57 05/28/24 03:04 05/28/24 04:00 Temperature Pulse Rate 55 L 52 L 57 L Respiratory Rate 16 16 Blood Pressure Pulse Oximetry Oxygen Delivery Fraction of Inspired Oxygen 05/28/24 05:55 05/28/24 07:39 05/28/24 07:39 Temperature 96.9 F L Pulse Rate 54 L 50 L Respiratory Rate 20 16 Blood Pressure 135/72 Pulse Oximetry 100 95 Oxygen Delivery Room Air Fraction of Inspired Oxygen 21 05/28/24 07:45 05/28/24 08:00 05/28/24 11:54 Temperature 95.3 F L Pulse Rate 54 L 72 65 Respiratory Rate 16 18 18 Blood Pressure 99/55 L 104/79 Pulse Oximetry 100 100 Oxygen Delivery Fraction of Inspired Oxygen 05/28/24 08:00 Temperature Pulse Rate 72 Respiratory Rate Blood Pressure Pulse Oximetry Oxygen Delivery Fraction of Inspired Oxygen Intake/Output Intake/Output: Intake & Output 05/25/24 05/26/24 05/27/24 05/28/24 23:59 23:59 23:59 23:59 Intake Total 580 3130 540 Output Total 525 Balance 580 3130 15 Meds/Results Medications: Active Medications Generic Name Dose Route Start Last Admin Trade Name Freq PRN Reason Stop Dose Ad
[2024-05-28 16:51] LABS: Glucose Point of Care 143 mg/dl (65-105)
[2024-05-28] MEDS: DEXTROSE 5%/0.9% SOD CHL 1,000 ML 75 ML IV CONT (20:34)
[2024-05-28] MEDS: DONEPEZIL HCL 10 MG TABLET PO (20:35)
[2024-05-28 20:42] LABS: Glucose Point of Care 112 mg/dl (65-105)
[2024-05-29] VITALS (14 sets, daily range): BP systolic 129–141; BP diastolic 58–79; PULSE 52–82; RESP 16–18; TEMP 35.7–36.6; O2SAT 93–100
[2024-05-29] MEDS: IPRATROPIUM 0.5 MG/ALBUTEROL SULFATE 2.5 MG AMPUL.NEB 3 ML NEBULIZE ×4 (02:33→20:29)
[2024-05-29] MEDS: UMECLIDINIUM/VILANTEROL 62.5-25 MCG ELLIPTA 1 PUFF INHALATION (06:52)
[2024-05-29 07:51] LABS: Glucose Point of Care 134 mg/dl (65-105)
[2024-05-29] MEDS: ROSUVASTATIN 20 MG TABLET PO (09:19)
[2024-05-29] MEDS: CITALOPRAM HYDROBROMIDE 10 MG TABLET PO (09:19)
[2024-05-29] MEDS: MEMANTINE 10 MG TABLET PO ×2 (09:20→20:37)
[2024-05-29] MEDS: TAMSULOSIN HCL 0.4 MG CAPSULE PO (09:20)
[2024-05-29] MEDS: MEROPENEM 1 GM/NS 100 ML 1 GM/100 ML BAG IVPB (09:20)
[2024-05-29 09:53] LABS: Basophils Percent Auto 0.5 % (0.2-1.2); Eosinophils Absolute Auto 0.2 K/mm3 (0-0.3); Eosinophils Percent Auto 3.5 % (0-4.4); Hematocrit 41.9 % (42.0-52.0); Hemoglobin 13.3 g/dL (14.0-18.0); Immature Granulocyte Absolute 0.02 K/mm3 (0.00-0.031); Immature Granulocyte Percent A 0.3 % (0-0.5); Immature Platelet Fraction Pct 4.4 % (0.9-11.2); Lymphocytes Absolute Auto 1.55 K/mm3 (0.9-3.2); Mean Corpuscular HGB Conc 31.7 g/dl (32-36); Mean Corpuscular Hemoglobin 28.4 pg (26-34); Mean Corpuscular Volume 89.3 fl (80-100); Mean Platelet Volume 10.6 fl (7.4-10.4); Monocytes Absolute Auto 0.6 K/mm3 (0.1-0.6); Monocytes Percent Auto 9.5 % (2.6-8.5); Neutrophils Absolute Auto 3.8 K/mm3 (1.3-6.7); Neutrophils Percent Auto 61.2 % (45.5-73.1); Platelet Count Result 122 k/mm3 (150-375); Red Blood Count 4.69 M/mm3 (4.6-6.20); White Blood Count 6.2 K/mm3 (4.5-10.0)
[2024-05-29 10:02] LABS: Alanine Aminotransferase 45 U/L (6-50); Albumin Level 3.5 g/dL (3.5-5.1); Alkaline Phosphatase 75 U/L (38-126); Anion Gap 6 mmol/L (4-12); Aspartate Amino Transferase 43 U/L (17-59); Bilirubin,Total 0.5 mg/dL (0.2-1.3); Blood Urea Nitrogen 21 mg/dL (9-20); Calcium 9.2 mg/dL (8.4-10.2); Carbon Dioxide 26 mmol/L (22-30); Chloride 109 mmol/L (98-107); Estimated CRCL calculation 61 ml/min; Estimated Glomerular Filt Rate > 60; Glucose 136 mg/dL (65-110); Magnesium 1.8 mg/dL (1.6-2.3); Potassium 3.9 mmol/L (3.4-5.0); Sodium 141 mmol/L (137-145)
[2024-05-29 10:03] LABS: Lactic Acid Reflex 1.3 mmol/L (0.7-2.0)
[2024-05-29 11:26] LABS: Glucose Point of Care 188 mg/dl (65-105)
[2024-05-29] MEDS: SULFAMETHOXAZOLE/TRIMETHOPRIM 800/160 MG DS TABLET 1 TAB PO ×2 (12:43→20:38)
[2024-05-29] MEDS: predniSONE 20 MG TABLET 40 MG PO (12:43)
--- NOTE | 2024-05-29 16:06 | PM.IMPN ---
Progress Note: A&P Assessment and Plan (1) Left renal stone: Code(s): N20.0 - Calculus of kidney Status: Acute (2) Pyelonephritis: Code(s): N12 - Tubulo-interstitial nephritis, not specified as acute or chronic Status: Acute (3) Bullous pemphigoid: Code(s): L12.0 - Bullous pemphigoid Status: Acute Assessment and Plan: Started Prednisone 40 mg PO x 5 days Plan Left pyelonephritis Obstructing left kidney stone with hydronephrosis CT scan reviewed Left CVA tenderness s/p cystoscopy with left ureteral stent placement Bloody urine culture pending On Meropenem urology following monitor BRANDON on CKD Creatinine is 1.20, baseline is 1.6. IV fluid, encourage oral intake and mannitol Avoid nephrotoxins. Type 2 diabetes Sliding scale insulin with Accu-Cheks and adjust the clinical course Coronary artery disease Continue home medications. COPD Continue home bronchodilators Obstructive sleep apnea Continue CPAP Depression and dementia Continue medications. Hypertension Titrate her medications with clinical course AAA s/p graft monitor DVT prophylaxis subQ Lovenox. Full code Surrogate decision maker is Wilma Coleman Subjective Date/time seen: 05/29/24 16:06 Interval history: No acute events overnight. Discontinue meropenem since the urine culture shows no growth. Patient is placed on Bactrim for 7 days. Stent is placed on 06/06. Possible discharge tomorrow after Urology evaluation.Patient has evidence of blisters on his left hand which he reports being before admission. Possible Bullous Pemphigoid and started on prednisone Exam Narrative: General: alert and comfortable Eyes: EOMI, PERRLA ENNT External ears normal, Neck is supple, no masses, Respiratory systems: Clear to auscultation Cardiovascular S1, S2, normal rhythm, no murmur, rub, or gallop; no thrill or palpable murmurs on palpation. Gastrointestinal: soft, non-tender, and non-distended abdomen with no masses; BS present Skin: no rash, lesions, ulcerations, subcutaneous nodules or induration Musculoskeletal: no abnormality and no tenderness, normal ROM Neurologic: Alert and oriented x3, non focal UG exam: left CVA tenderness present Objective Data Vital Signs Vital Signs: Vital Signs - 24 hr 05/28/24 19:57 05/28/24 20:00 05/28/24 20:59 Temperature 97.4 F L Pulse Rate 89 50 L Respiratory Rate 16 6 L Blood Pressure 132/60 Pulse Oximetry 100 Oxygen Delivery Room Air Fraction of Inspired Oxygen 21 05/28/24 21:01 05/28/24 21:05 05/29/24 00:00 Temperature 97.1 F L Pulse Rate 66 76 Respiratory Rate 18 16 Blood Pressure 130/65 Pulse Oximetry 97 98 Oxygen Delivery Room Air Fraction of Inspired Oxygen 05/29/24 02:34 05/29/24 02:40 05/28/24 20:00 Temperature Pulse Rate 62 57 L 63 Respiratory Rate 16 16 Blood Pressure Pulse Oximetry Oxygen Delivery Fraction of Inspired Oxygen 05/29/24 00:00 05/29/24 04:00 05/29/24 04:00 Temperature 97.9 F Pulse Rate 55 L 57 L 82 Respiratory Rate 16 Blood Pressure 133/63 Pulse Oximetry 100 Oxygen Delivery Fraction of Inspired Oxygen 05/29/24 06:50 05/29/24 06:50 05/29/24 07:00 Temperature Pulse Rate 54 L 54 L 57 L Respiratory Rate 16 16 16 Blood Pressure Pulse Oximetry 93 Oxygen Delivery Room Air Fraction of Inspired Oxygen 05/29/24 08:00 05/29/24 09:20 05/29/24 12:00 Temperature 96.7 F L 96.8 F L Pulse Rate 52 L 55 L Respiratory Rate 16 18 Blood Pressure 129/59 L 141/58 H Pulse Oximetry 97 97 Oxygen Delivery Room Air Fraction of Inspired Oxygen 05/29/24 08:00 05/29/24 12:00 05/29/24 12:50 Temperature Pulse Rate 53 L 68 60 Respiratory Rate 18 Blood Pressure Pulse Oximetry Oxygen Delivery Fraction of Inspired Oxygen Intake/Output Intake/Output: Intake & Output 05/26/24 10
[2024-05-29 16:43] LABS: Glucose Point of Care 168 mg/dl (65-105)
[2024-05-29 20:18] LABS: Glucose Point of Care 247 mg/dl (65-105)
[2024-05-29] MEDS: DONEPEZIL HCL 10 MG TABLET PO (20:37)
[2024-05-30] VITALS: PULSE 57
[2024-05-30 03:38] VITALS: BP 141/65; PULSE 51; RESP 16; TEMP 36.3; O2SAT 97
[2024-05-30 04:00] VITALS: PULSE 56
[2024-05-30 06:35] LABS: Hematocrit 42.8 % (42.0-52.0); Hemoglobin 13.7 g/dL (14.0-18.0); Mean Corpuscular Hemoglobin 28.1 pg (26-34); Mean Corpuscular Volume 87.7 fl (80-100); Mean Platelet Volume 10.5 fl (7.4-10.4); Platelet Count Result 146 k/mm3 (150-375); Red Blood Count 4.88 M/mm3 (4.6-6.20); Red Cell Distribution Width 14.8 % (11.5-14.5); White Blood Count 8.2 K/mm3 (4.5-10.0)
[2024-05-30 06:45] LABS: Alanine Aminotransferase 54 U/L (6-50); Albumin Level 3.7 g/dL (3.5-5.1); Alkaline Phosphatase 81 U/L (38-126); Anion Gap 8 mmol/L (4-12); Aspartate Amino Transferase 49 U/L (17-59); Bilirubin,Total 0.4 mg/dL (0.2-1.3); Blood Urea Nitrogen 24 mg/dL (9-20); Calcium 9.7 mg/dL (8.4-10.2); Carbon Dioxide 25 mmol/L (22-30); Chloride 106 mmol/L (98-107); Estimated CRCL calculation 51 ml/min; Estimated Glomerular Filt Rate 59; Glucose 131 mg/dL (65-110); Potassium 4.3 mmol/L (3.4-5.0); Sodium 139 mmol/L (137-145)
[2024-05-30 07:43] LABS: Glucose Point of Care 139 mg/dl (65-105)
[2024-05-30 07:49] VITALS: PULSE 56; RESP 18
[2024-05-30] MEDS: UMECLIDINIUM/VILANTEROL 62.5-25 MCG ELLIPTA 1 PUFF INHALATION (07:49)
[2024-05-30 08:00] VITALS: BP 147/65; PULSE 60; PULSE 65; RESP 16; TEMP 35.8; O2SAT 99
[2024-05-30] MEDS: predniSONE 20 MG TABLET 40 MG PO (09:22)
[2024-05-30] MEDS: MEMANTINE 10 MG TABLET PO (09:23)
[2024-05-30] MEDS: SULFAMETHOXAZOLE/TRIMETHOPRIM 800/160 MG DS TABLET 1 TAB PO (09:23)
[2024-05-30] MEDS: TAMSULOSIN HCL 0.4 MG CAPSULE PO (09:23)
[2024-05-30] MEDS: ROSUVASTATIN 20 MG TABLET PO (09:23)
[2024-05-30] MEDS: CITALOPRAM HYDROBROMIDE 10 MG TABLET PO (09:23)
--- NOTE | 2024-05-30 10:50 | PM.DS ---
DS: Admitting Diagnosis Discharge Date 05/30/2024 Admitting Diagnosis Acute UTI, BRANDON (acute kidney injury), Acute dehydration, Left ureteral calculus DS: Discharge Diagnosis Discharge Diagnosis (1) Left renal stone: Code(s): N20.0 - Calculus of kidney Status: Acute (2) Pyelonephritis: Code(s): N12 - Tubulo-interstitial nephritis, not specified as acute or chronic Status: Acute (3) Bullous pemphigoid: Code(s): L12.0 - Bullous pemphigoid Status: Acute Assessment and Plan: Started Prednisone 40 mg PO x 5 days Plan Left pyelonephritis Obstructing left kidney stone with hydronephrosis CT scan reviewed Left CVA tenderness s/p cystoscopy with left ureteral stent placement Bloody urine culture pending On Meropenem urology following monitor BRANDON on CKD Creatinine is 1.20, baseline is 1.6. IV fluid, encourage oral intake and mannitol Avoid nephrotoxins. Type 2 diabetes Sliding scale insulin with Accu-Cheks and adjust the clinical course Coronary artery disease Continue home medications. COPD Continue home bronchodilators Obstructive sleep apnea Continue CPAP Depression and dementia Continue medications. Hypertension Titrate her medications with clinical course AAA s/p graft monitor DVT prophylaxis subQ Lovenox. Full code Surrogate decision maker is Wilma Coleman DS: Summary Hospital Course Hospital Course: 78-year-old gentleman with a past medical history significant for COPD, dementia, depression, dm 2, hyperlipidemia, hypertension, ADIS non-compliant with CPAP, CKD, and urinary incontinence who presented to an outside ER on account of generalized weakness. History was presented by who was present at bedside, as patient was mostly not responding to questions. Noted that patient underwent lithotripsy on 05/[address] Valenzuela and about 5 days had botox injection in the bladder. Noted that patient was fine until last night when he so weak he needed help with standing up and with most motor activities. Thus patient was taken to the outside ER for proper eval and care. ER eval notable for stable vital signs wnl, labs notable for WBC 17.4, cr 2.25 baseline appears to be 1.6, UA positive Nitrate, Leukocyte esterase, pyuria. CXR unremarkable, CT AP showed left nephrolithiasis with obstructing 8x5 mm proximal stone with mild left hydronephrosis, small amount of gas, and aortoilliac stent graft spanning 3.5 similar to fusiform infrarenal abdominal aortic aneurysm.Recently underwent ESWL by Dr Valenzuela for a left kidney stone. During hospitalization patient underwent Cystoscopy, left retrograde pyelogram, left stent placement. Patient urine culture was negative. Meropenem was discontinued yesterday and started on Bactrim. Patient will complete the 5 doses on discharge. Of note patient had fluid-filled blisters on his left hand which was present before the admission and restarted prednisone 40 mg p.o. q.d. for 5 days. The lesions are getting better in case if it worsens advised to see the primary care physician or dermatology. Time Spent with Patient Time attestation: Total time spent providing and/or coordinating discharge services: Exam Narrative: General: alert and comfortable Eyes: EOMI, PERRLA ENNT External ears normal, Neck is supple, no masses, Respiratory systems: Clear to auscultation Cardiovascular S1, S2, normal rhythm, no murmur, rub, or gallop; no thrill or palpable murmurs on palpation. Gastrointestinal: soft, non-tender, and non-distended abdomen with no masses; BS present Skin: Blisters on the left hand Musculoskeletal: no abnormality and no tenderness, normal ROM Neurologic: Alert and oriented x3, non focal UG exam: left CVA tenderness present DS: Data Data Completed and Pending Labs on day of discharge: Labs from last 24 hours 05/30/24 05/30/24 05/29/24 07:28 06:19 20:13 WBC 8.2 RBC 4.88 Hgb
== END 2024-05-30 11:22 | disposition home or self-care (01) | DRG 660 ==
PROVIDERS: Urology; Admitting Provider Internal Medicine; PCP Internal Medicine; Visit Provider General Practice
PROC: 0T778DZ Dilation of Left Ureter with Intraluminal Device, Via Natural or Artificial Opening Endoscopic (ICD-10-PCS; CPT 52352; principal; 2024-05-27 07:30)
DX: N13.6 Pyonephrosis (principal); L12.0 Bullous pemphigoid; N17.9 Acute kidney failure, unspecified; I12.9 Hypertensive chronic kidney disease with stage 1 through stage 4 chronic kidney disease, or unspecified chronic kidney disease; N18.9 Chronic kidney disease, unspecified; J44.9 Chronic obstructive pulmonary disease, unspecified; E11.22 Type 2 diabetes mellitus with diabetic chronic kidney disease; E78.5 Hyperlipidemia, unspecified; G47.33 Obstructive sleep apnea (adult) (pediatric); F03.90 Unspecified dementia, unspecified severity, without behavioral disturbance, psychotic disturbance, mood disturbance, and anxiety; F32.A Depression, unspecified; Z79.82 Long term (current) use of aspirin
CPT/HCPCS: 36415; 74018; 74420; 80053; 82948; 83605; 83735; 85025; 85027; 85055; 87040; 87086; 93971; 94640; A9270; C1758; C1769; C2617; G0378; G0379; J0690; J2185; J2405; J2704; J3010; J7042; J7120; J7512; Q9966

== ENCOUNTER 2024-06-12 02:37 | Day surgery (SDC) | payer MEDICARE, SELFPAY ==
[2024-06-07 15:45] VITALS: BMI 30.5
--- NOTE | 2024-06-07 16:00 | PC.NURSE ---
Report to the Outpatient Waiting Room, entrance under the green pavilion located off [facility], at time __7:45 AM on date ___06/12/24____. Planned Procedure Time: ____9:45AM____.? Time changes happen often and if your time is changed the preop area will call you the afternoon before. - You and your visitor will be asked to self-screen and do not enter if you have any COVID symptoms. Please call surgeon if you need to reschedule. - A mask is optional within the hospital at this time. Patients may have clear liquids (water, carbonated beverages, clear teas, apple juice) until 3 hours prior to surgery with a maximum of 20 ounces. - No food from midnight until time of surgery and no smoking - Infants may have breast milk until 4 hours before surgery, formula 6 hours prior to surgery. - Children will be allowed to drink immediately following surgery.? If applicable, please bring a bottle or sippy cup to assist with drinking. Juice, water, soda, and popsicles are readily available.? For infants on formula, please bring formula the day of surgery.? Pacifiers are allowed. Take only the following medications with a SIP of water on the morning of surgery: ____ANORO ELLIPTA, CITALOPRAM, METOPROLOL. MAY TAKE TRAMADOL NEEDED DO NOT STOP ANY OF YOUR OTHER PRESCRIPTION MEDICATIONS PRIOR TO SURGERY EXCEPT THE FOLLOWING Medications to discontinue per physician ____HOLD ASPIRIN & ALL VITAMINS/SUPPLEMENTS 7 DAYS PRE-OP PER DR REBOLLAR Date to take last dose 06/04/24 Please no make-up, nail divehi, hairspray, perfume, deodorant, or body powder the day of surgery.? No jewelry (including any body piercings) or valuables the day of surgery, leave them at home.? Please take a shower or bath the night before, or the morning of, surgery with an antibacterial soap.? Wear comfortable, loose fitting clothing.? Children are encouraged to wear pajamas. - Jewelry must be removed prior to entering the operating room.? Rings and piercings that are not removed may be cut off. - The hospital will not accept responsibility for valuables.? - Please leave all valuables, including medications, at home the day of surgery. If you are going home after surgery, a licensed taxi truck driver must drive you home.? - NO public transportation without another adult if you receive anesthesia. - We recommend that an adult stay with you for 24 hours following discharge. - We also recommend that you do not drive, make important decision, drink alcoholic beverages, or take any drugs that were not prescribed by your health care provider for at least 24 hours after your discharge time. For Pediatric surgeries, we recommend two adults accompany the child home. Follow any additional instructions given to you from your surgeon. Telephone instructions given to ____WIFERafael STAHL and asked if any additional questions and then verbalized understanding. Patient advised to call surgeon office or pre surgery nurse liaison [phone] if any additional questions.
[2024-06-12] VITALS (7 sets, daily range): BP systolic 120–154; BP diastolic 60–80; PULSE 42–61; RESP 14–18; TEMP 36.4–36.9; O2SAT 100
--- NOTE | ~2024-06-12 | XR_ITS ---
EXAMINATION: XR retrograde pyelo w/stent LT DATE: 06/12/2024 10:11 INDICATION: Left ureteral stone. TECHNIQUE: 7 intraoperative fluoroscopic views of the abdomen and pelvis were obtained. I was not pre sent. Fluoroscopy exposure time was 13 seconds. COMPARISON: CT abdomen and pelvis 05/26/2024 FINDINGS: The left-sided retrograde pyelogram demonstrates moderate hydronephrosis. The final images demonstrate a left internal ureteral stent in expected position. There is a stent graft in abdominal aorta. IMPRESSION: 1. Moderate left hydronephrosis. 2. Left internal ureteral stent in expected position. Reviewed, dictated and finalized at location A.
--- NOTE | 2024-06-12 07:54 | WPDHPUPDATE1 ---
History and Physical Update Update Date/Time: 06/12/24 07:54 History and Physical has been reviewed, including an updated exam of the patient. There are NO changes in the patient's condition. Risks, benefits, and alternatives have been discussed and questions answered. Patient agrees to proceed with procedure. Proceed with cystoscopy, left retrograde, left ureteroscopy with holmium laser, stone extraction, stent exchange
[2024-06-12] MEDS: LACTATED RINGERS 1,000 ML 30 ML IV CONT (08:20)
[2024-06-12 08:34] LABS: Glucose Point of Care 125 mg/dl (65-105)
--- NOTE | 2024-06-12 08:42 | WPDANESEPPF ---
Anes - Initial Pre Proc Eval Procedure: Operation Date: 06/12/24 09:45 Proposed Procedures p Cystoscopy, Left Ureteroscopy, Possible Left Retrograde Pyelogram, Possible Left Stone Extraction, Left Stent Exchange, Possible Holmium Laser - Rancho Valenzuela MD Date/Time: 06/12/24 08:42 Surgeon: Rancho Valenzuela MD Pre Op Diagnosis: left renal kidney stone Patient Data Age: 79 Gender: M Height: 1.85 m Weight: 105 kg Allergies Allergy/AdvReac Type Severity Reaction Status Date / Time No Known Allergies Allergy Verified 06/12/24 08:41 Home Medications Medication Instructions Recorded Confirmed Type memantine 10 mg tablet (Namenda) 10 mg PO Q12H 07/13/19 06/07/24 History rosuvastatin 20 mg tablet 20 mg PO DAILY 07/13/19 06/07/24 History aspirin 81 mg tablet,delayed 81 mg PO DAILY 01/14/22 06/07/24 History release donepezil 10 mg tablet 10 mg PO QHS 01/14/22 06/07/24 History multivit with min-folic 1 tablet PO DAILY 01/14/22 06/07/24 History acid-lutein 400 mcg-250 mcg chewable tablet (Centrum Silver) Anoro Ellipta 62.5 mcg-25 1 inh inhalation Q24H #60 ea 11/12/22 06/07/24 Rx mcg/actuation powder for inhalation (umeclidinium-vilanterol) potassium citrate 10 mEq (1,080 10 meq PO DAILY 05/01/23 06/07/24 History mg) tablet,extended release semaglutide 3 mg tablet (Rybelsus) 3 mg PO 2XW 05/01/23 06/07/24 History oxybutynin chloride 5 mg tablet 5 mg PO TID 05/15/23 06/07/24 History magnesium oxide 400 mg (241.3 mg 400 mg PO BID #180 tabs 09/27/23 06/07/24 Rx magnesium) tablet citalopram 10 mg tablet 10 mg PO DAILY 04/16/24 06/07/24 History furosemide 20 mg tablet 20 mg PO DAILY 04/16/24 06/07/24 History loratadine 10 mg tablet (Claritin) 10 mg PO DAILY 04/16/24 06/07/24 History tamsulosin 0.4 mg capsule 0.4 mg PO QAM #30 caps 05/30/24 06/07/24 Rx metoprolol succinate 25 mg 25 mg PO QAM 06/07/24 06/07/24 History tablet,extended release 24 hr tramadol 50 mg tablet 50 mg PO Q6-8H PRN Pain 06/07/24 06/07/24 History Laboratory Tests 06/12/24 08:31 POC Capillary Glucose 125 H mg/dl (65-105) Patient hx anesthesia problems: none Family hx anesthesia problems: none Results Review: All pre-operative results and documents have been reviewed as part of the pre-operative evaluation. [facility] Past Medical History Medical History COPD (chronic obstructive pulmonary disease) Dementia Depression DM2 (diabetes mellitus, type 2) Hyperlipidemia Hypertension ADIS (obstructive sleep apnea) Overweight Pedal edema (04/17/18) Urinary incontinence (10/03/17) Surgical History Surgical History History of hernia repair History of mitral valve repair 2014. [facility] [place] Hx of cataract surgery Right Eye Family History Family History Father , Age 86 Acute myocardial infarction Dementia Mother , Age 83 No problems noted. Other Family history of cardiovascular disease Social History Social History Smoking status: Never smoker Second hand tobacco smoke exposure: No Alcohol intake: never Substance use: never Substance use type: does not use Do You Feel Safe in your Home?: Yes Lack of Transportation: No Lack of Food: Never True Current Housing: I Have Housing Concerned About Future Housing: No Difficulty Paying Gas/Electric Bills: No Difficulty Paying for Meds: No Currently Unemployed: No Education: Decline to Answer Difficulty w/ Childcare or Family Care: No Living arrangements: with family Additional living arrangements comments: Occupation/Education: retired 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
[2024-06-12] MEDS: ceFAZolin 2 GM/D5W 50 ML 2 GM/50 ML BAG IVPB (09:16)
[2024-06-12] MEDS: LIDOCAINE HCL 2% GEL UROJET 10 ML PKG MUCOUS MEM (09:33)
--- NOTE | 2024-06-12 10:08 | W.PM.PROC2 ---
Procedure Note - Detailed Date of Procedure 06/12/24 Pre-op Diagnosis left ureteral and renal kidney stone Post-op Diagnosis Same Procedure Performed Cystoscopy, left retrograde pyelogram, left ureteroscopy with holmium laser of ureteral and renal calculus, left ureteral stent exchange 4.8 Romanian contour Surgeon Rancho Valenzuela MD Anesthesia General Description of Procedure Patient was taken the operative suite correctly identified. Once anesthesia was obtained was placed in dorsal lithotomy position and prepped draped usual sterile fashion. Twenty-two Romanian scope was inserted bladder direct vision. The left ureteral stent was grasped and brought out the meatus. Sensor wire was passed through the stent. Ureteral access sheath was placed. Mini flexible scope was inserted. The 8 mm left ureteral stone was visualized. It was too large to retrieve in 1 piece. A holmium laser fiber was then used to fragment the stone. Larger the stones were retrieved sent for analysis. The scope was inserted all into the kidney. Multiple stones were visualized in the kidney from prior lithotripsy. We grasped the largest stones. Some the stones were also dusted. No large stone burden was noted at the termination of procedure. Pyelogram was then performed to confirm placement the stent. 4.8 Romanian contour stent was then placed with the proximal end coiled in the renal pelvis and the distal end in the bladder. Bladder was drained. 2% viscous lidocaine was inserted into the urethra and patient is taken recovery stable condition. He will follow-up in a week's time for stent removal. This completes dictation. Please send a copy of op note to my office Drains Yes Packing No Pathology Yes Complications No immediate complications Condition Stable Disposition PACU
[2024-06-12 10:20] LABS: Glucose Point of Care 118 mg/dl (65-105)
== END 2024-06-12 11:35 | disposition home or self-care (01) ==
PROVIDERS: PCP Internal Medicine; Visit Provider Urology
PROC: (CPT 52352; principal; 2024-06-12 09:45)
DX: N20.1 Calculus of ureter (principal); I10 Essential (primary) hypertension; E78.00 Pure hypercholesterolemia, unspecified; E11.9 Type 2 diabetes mellitus without complications; F32.A Depression, unspecified; F41.9 Anxiety disorder, unspecified; J44.9 Chronic obstructive pulmonary disease, unspecified; G47.33 Obstructive sleep apnea (adult) (pediatric); N39.41 Urge incontinence; R01.1 Cardiac murmur, unspecified; F03.90 Unspecified dementia, unspecified severity, without behavioral disturbance, psychotic disturbance, mood disturbance, and anxiety; E66.9 Obesity, unspecified; Z68.30 Body mass index [BMI] 30.0-30.9, adult; Z79.82 Long term (current) use of aspirin; Z79.51 Long term (current) use of inhaled steroids; Z79.84 Long term (current) use of oral hypoglycemic drugs; Z98.890 Other specified postprocedural states; Z95.2 Presence of prosthetic heart valve; Z82.49 Family history of ischemic heart disease and other diseases of the circulatory system
CPT/HCPCS: 52356; 74420; 82365; 82948; 88300; C1769; C1894; C2617; J0690; J1100; J2003; J2405; J2704; J3010; J7120; Q9966

== ENCOUNTER 2024-07-10 09:42 | Outpatient (CLI) | payer MEDICARE, SELFPAY ==
[2024-07-10 10:06] LABS: Occult Blood Negative (Negative)
== END 2024-07-10 09:43 | disposition home or self-care (01) ==
PROVIDERS: PCP Internal Medicine; Visit Provider Internal Medicine
DX: K92.1 Melena (principal)
CPT/HCPCS: 82272

== ENCOUNTER 2024-07-13 13:12 | Outpatient (CLI) | payer MEDICARE, SELFPAY | END 2024-07-13 13:13 | disposition home or self-care (01) | LOC: CHSLAB 13:16 | PROVIDERS: PCP Internal Medicine; Visit Provider Internal Medicine Nephrology | DX: R82.81 Pyuria (principal); N18.31 Chronic kidney disease, stage 3a; N20.0 Calculus of kidney | CPT/HCPCS: 87077; 87086; 87088; 87186 ==

== ENCOUNTER 2024-07-30 12:38 | Outpatient (CLI) | payer MEDICARE, SELFPAY ==
[2024-07-30 13:08] LABS: Basophils Absolute Auto 0.02 K/mm3 (0.00-0.10); Basophils Percent Auto 0.2 % (0.0-1.0); Hematocrit 49.1 % (37.0-46.0); Hemoglobin 15.7 g/dL (12.4-15.3); Immature Granulocyte Absolute 0.05 K/mm3 (0.00-0.00); Immature Granulocyte Percent A 0.4 % (0.0-0.0); Lymphocytes Absolute Auto 1.29 K/mm3 (1.10-4.50); Lymphocytes Percent Auto 10.2 % (18.0-42.0); Mean Corpuscular Hemoglobin 27.9 pg (27.0-31.0); Mean Corpuscular Volume 87.4 fL (78.0-102.0); Monocytes Absolute Auto 0.87 K/mm3 (0.10-0.90); Monocytes Percent Auto 6.9 % (2.0-11.0); Neutrophils Absolute Auto 10.47 K/mm3 (1.70-7.20); Neutrophils Percent Auto 82.3 % (50.0-70.0); Platelet Count Result 143 K/mm3 (150-420); Red Blood Count 5.62 M/mm3 (4.70-6.10); Red Cell Distribution Width 14.6 % (11.6-14.4); White Blood Count 12.7 K/mm3 (4.8-10.8)
[2024-07-30 13:59] LABS: Alanine Aminotransferase 23 U/L (16-63); Albumin Level 3.6 g/dL (3.4-5.0); Alkaline Phosphatase 89 U/L (46-116); Amylase 21 U/L (25-115); Anion Gap 11 mmol/L (4-12); Aspartate Amino Transferase 16 U/L (15-37); Bilirubin,Total 1.2 mg/dL (0.00-1.00); Blood Urea Nitrogen 25 mg/dL (7-18); CRP 20.4 mg/dL (0.0-0.9); Calcium 10.4 mg/dL (8.5-10.1); Carbon Dioxide 28 mmol/L (21-32); Chloride 104 mmol/L (98-108); Estimated Glomerular Filt Rate 34; Glucose 194 mg/dL (70-99); Lipase 13 U/L (16-77); Osmolality Calculated 305 mOsm/kg (285-295); Potassium 4.4 mmol/L (3.5-5.1); Prostate Specific Antigen 0.7 ng/mL (< OR = 4.0); Sodium 143 mmol/L (136-145); Total Protein 7.3 g/dL (6.4-8.2)
[2024-07-30 14:08] LABS: Erythrocyte Sedimentation Rate 1 mm/hr (0-20)
[2024-07-30 14:52] LABS: Add Urine Microscopic? YES; Appearance Urine Cloudy (Clear); Bilirubin Urine Negative (Negative); Blood Urine 1+ (Negative); Color Urine Yellow (Yellow); Glucose Urine UA Negative (Negative); Ketones Urine Negative (Negative); Leukocyte Esterase Ur 3+ (Negative); Nitrate Urine Negative (Negative); Protein Urine 2+ (Negative); Urobilinogen Urine 0.2 mg/dL (0.2-1.0); pH Urine 6.5 (5.0-8.0)
[2024-07-30 14:56] LABS: Bacteria Urine 2+ /hpf; RBC Urine 0-2 /hpf (0-2); Squamous Epithelial Cell Urine Rare /hpf (Few); WBC Urine >75 /hpf (0-3)
== END 2024-07-30 12:39 | disposition home or self-care (01) ==
LOC: CHSLAB 12:39
PROVIDERS: PCP Internal Medicine; Visit Provider Internal Medicine
DX: R10.9 Unspecified abdominal pain (principal); R11.0 Nausea; Z12.5 Encounter for screening for malignant neoplasm of prostate
CPT/HCPCS: 36415; 80053; 81001; 82150; 83690; 84153; 85025; 85652; 86140; 87086; G0103

== ENCOUNTER 2024-07-31 06:09 | Emergency (ER) | payer MEDICARE, SELFPAY ==
--- NOTE | ~2024-07-31 | XR_ITS ---
Portable chest x-ray Comparison: 05/26/2024 Clinical History: Weakness Findings: No acute pulmonary abnormality evident. Cardiomediastinal silhouette is stable, with loop recorder and prior valve replacement. Bones and soft tissues are unremarkable. Impression: No acute pulmonary abnormality. Post surgery with loop recorder, stable from prior exam. Reviewed, dictated and finalized at [facility]. [employer] Impression: No acute pulmonary abnormality. Post surgery with loop recorder, stable from prior exam.
[2024-07-31 06:33] VITALS: BP 119/60; PULSE 78; RESP 20; O2SAT 98
--- NOTE | 2024-07-31 06:45 | ECG_ITS ---
Test Date: 2024-07-31 06:53:20 Measurements Intervals [place] Rate: 72 P: 80 NE: 181 QRS: 114 QRSD: 145 T: 71 QT: 406 QTc: 444 Interpretive Statements SINUS RHYTHM WITH OCCASIONAL VENTRICULAR PREMATURE COMPLEXES RIGHT BUNDLE BRANCH BLOCK [120+ ms QRS DURATION, UPRIGHT V1, 40+ ms S IN I/aVL/V4/V5/V6] LEFT POSTERIOR FASCICULAR BLOCK [QRS AXIS > 109, INFERIOR Q] No previous ECG available for comparison Electronically Signed On 08-02-2024 16:42:42 [employer] by Trish Fry M.D.
[2024-07-31 07:00] VITALS: BP 115/69; PULSE 74; PULSE 77; RESP 20; O2SAT 96; O2SAT 97
[2024-07-31 07:13] LABS: Basophils Absolute Auto 0.04 K/mm3 (0.00-0.10); Basophils Percent Auto 0.3 % (0.0-1.0); Hematocrit 45.9 % (37.0-46.0); Hemoglobin 15.1 g/dL (12.4-15.3); Immature Granulocyte Absolute 0.17 K/mm3 (0.00-0.00); Immature Granulocyte Percent A 1.1 % (0.0-0.0); Immature Platelet Fraction Pct 3.4 % (1.0-7.0); Lymphocytes Absolute Auto 2.03 K/mm3 (1.10-4.50); Lymphocytes Percent Auto 12.8 % (18.0-42.0); Mean Corpuscular HGB Conc 32.9 g/dL (32-36); Mean Corpuscular Hemoglobin 28.8 pg (27.0-31.0); Mean Corpuscular Volume 87.4 fL (78.0-102.0); Mean Platelet Volume 11.2 fl (8.7-11.0); Monocytes Absolute Auto 1.04 K/mm3 (0.10-0.90); Monocytes Percent Auto 6.5 % (2.0-11.0); Neutrophils Absolute Auto 12.62 K/mm3 (1.70-7.20); Neutrophils Percent Auto 79.3 % (50.0-70.0); Platelet Count Result 125 K/mm3 (150-420); Red Blood Count 5.25 M/mm3 (4.70-6.10); Red Cell Distribution Width 14.6 % (11.6-14.4); White Blood Count 15.9 K/mm3 (4.8-10.8)
[2024-07-31 07:23] LABS: Alanine Aminotransferase 18 U/L (16-63); Albumin Level 3.1 g/dL (3.4-5.0); Alkaline Phosphatase 80 U/L (46-116); Anion Gap 8 mmol/L (4-12); Aspartate Amino Transferase 18 U/L (15-37); Bilirubin,Total 1.4 mg/dL (0.00-1.00); Blood Urea Nitrogen 32 mg/dL (7-18); Calcium 10.3 mg/dL (8.5-10.1); Carbon Dioxide 29 mmol/L (21-32); Chloride 100 mmol/L (98-108); Estimated Glomerular Filt Rate 33; Glucose 152 mg/dL (70-99); Osmolality Calculated 293 mOsm/kg (285-295); Potassium 4.1 mmol/L (3.5-5.1); Sodium 137 mmol/L (136-145); Total Protein 7.5 g/dL (6.4-8.2)
[2024-07-31 07:26] LABS: Lactic Acid Reflex 1.5 mmol/L (0.4-2.0)
[2024-07-31 07:30] VITALS: BP 115/68; PULSE 71; RESP 20; O2SAT 97
[2024-07-31 07:43] LABS: Influenza A QL RT-PCR Negative (Negative); Influenza B QL RT-PCR Negative (Negative); RSV RNA, RT-PCR Negative (Negative); SARS-CoV-2 RNA PCR Negative (Negative)
[2024-07-31 08:00] VITALS: BP 128/70; PULSE 71; RESP 18; O2SAT 98
[2024-07-31 08:30] VITALS: BP 124/71; PULSE 74; RESP 18; O2SAT 99
[2024-07-31 08:31] LABS: Add Urine Microscopic? YES; Appearance Urine Clear (Clear); Bacteria Urine 1+ /hpf; Bilirubin Urine Negative (Negative); Blood Urine 2+ (Negative); Color Urine Light Yellow (Yellow); Glucose Urine UA Negative (Negative); Ketones Urine Negative (Negative); Leukocyte Esterase Ur 2+ LEU/UL (Negative); Nitrate Urine Positive (Negative); Protein Urine 2+ (Negative); Specific Grav Ur 1.015 (1.010-1.020); Urobilinogen Urine 0.2 mg/dL (0.2-1.0); WBC Urine 51-75 /hpf (0-3)
--- NOTE | 2024-07-31 09:36 | ER_ITS ---
This report was moved to the correct visit on 08/03/2024. The original report was signed by Travis Dominguez on 07/31/24 1252. HPI - General Adult General Chief complaint: Weakness Stated complaint: weakness Time Seen by Provider: 07/31/24 08:19 Source: patient and family (spouse) Mode of arrival: ambulatory Limitations: no limitations History of Present Illness HPI narrative: 79 year old male presents to the Emergency Department for evaluation. I assumed care of him at shift change. Patient states my thinks I'm dehydrated. He denies any symptoms aside from feeling weak for months. Denies recent illness, nausea, vomiting, diarrhea. States not urinating as much. Patient is poor historian. Onset (ago): month(s) Relieving factors: none Exacerbating factors: none Associated symptoms: denies other symptoms Treatments prior to arrival: none Related Data Home Medications ?Medication ?Instructions ?Recorded ?Confirmed ?Last Taken ?Type memantine 10 mg tablet (Namenda) 10 mg PO Q12H 07/13/19 07/10/24 05/26/24 09:00 History rosuvastatin 20 mg tablet 20 mg PO DAILY 07/13/19 07/10/24 05/25/24 09:00 History aspirin 81 mg tablet,delayed 81 mg PO DAILY 01/14/22 07/10/24 06/04/24 History release donepezil 10 mg tablet 10 mg PO QHS 01/14/22 07/10/24 05/25/24 21:00 History ozbagquvjeoa-zcwilxb-jrgfo acid 1 tablet PO DAILY 01/14/22 07/10/24 06/04/24 History 400 mcg-lutein 250 mcg chewable tablet (Centrum Silver) potassium citrate 10 mEq (1,080 10 meq PO DAILY 05/01/23 07/10/24 05/25/24 09:00 History mg) tablet,extended release oxybutynin chloride 5 mg tablet 5 mg PO TID 05/15/23 07/10/24 05/25/24 17:00 History citalopram 10 mg tablet 10 mg PO DAILY 04/16/24 07/10/24 06/12/24 06:00 History furosemide 20 mg tablet 20 mg PO DAILY 04/16/24 07/10/24 05/25/24 09:00 History loratadine 10 mg tablet (Claritin) 10 mg PO DAILY 04/16/24 07/10/24 05/25/24 09:00 History cranberry fruit 500 mg chewable 500 mg PO 2XW 07/10/24 07/10/24 Unknown History tablet semaglutide 3 mg tablet (Rybelsus) 3 mg PO 3XW 07/10/24 07/10/24 Unknown History Allergies Allergy/AdvReac Type Severity Reaction Status Date / Time No Known Allergies Allergy Verified 07/10/24 11:00 Review of Systems Review of Systems: All systems reviewed & are unremarkable except as noted in HPI and below Constitutional: Constitutional: Reports as per HPI, Denies chills, Reports fatigue, Denies fever(s) and Reports weakness Eyes: Eyes: Reports as per HPI ENT: Reports system reviewed and no additional complaints, except as documented Cardiovascular: Cardiovascular: Reports as per HPI and Denies chest pain Respiratory: Respiratory: Reports as per HPI, Denies chest congestion, Denies cough and Denies dyspnea Gastrointestinal: Gastrointestinal: Reports as per HPI, Denies abdominal pain, Denies constipation, Denies diarrhea, Denies nausea and Denies vomiting Genitourinary: Genitourinary: Reports no additional male genitourinary complaints and Reports oliguria Musculoskeletal: Musculoskeletal: Reports no additional musculoskeletal complaints and Denies myalgias Integumentary/Breasts: Skin/Breast: Reports system reviewed and no additional complaints, except as docu Neurologic: Reports system reviewed and no additional complaints, except as documented and Reports weakness PMFSH Past Medical History Medical History Urinary incontinence (10/03/17) Pedal edema (04/17/18) Dementia ADIS (obstructive sleep apnea) COPD (chronic obstructive pulmonary disease) DM2 (diabetes mellitus, type 2) Hyperlipidemia Hypertension Depression Overweight [facility] History [facility]x of [facility] Right Eye Family History Family History Father , Age 86 Acute myocardial infarction DementiaMother , Age 83 No problems noted. Other Family history of cardiovascular disease Social History Social History Smoking status: Never smoker Second hand tobacco smoke exposure: No Alcohol intake: never Substance use: never Substance use type: does not use Do You Feel Safe in your Home?: Yes Lack of Transportation: No Lack of Food: Never True Current Housing: I Have Housing Concerned About Future Housing: No Difficulty Paying Gas/Electric Bills: No Difficulty Paying for Meds: No Currently Unemployed: No Education: Decline to Answer Difficulty w/ Childcare or Family Care: No Living arrangements: with family Additional living arrangements comments: Occupation/Education: retired 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 Gender identity (if verbalized by the patient): Male Spiritual care concerns: No Exam Const: General: healthy appearing and no acute distress Nutritional Appearance: well nourished Orientation/consciousness: patient oriented x3 HENMT: Head: normal to inspection Ears: external ears normal Face/Nose/Sinus: Normal external nose present Face and sinus: normal facial exam Mouth: Yes dry mucous membranes (mild) Throat: posterior oropharynx normal Eyes: Conjunctivae: conjunctivae normal Pupils: Equal, round and reactive pupils present EOM: EOMs intact bilaterally Direct Ophthalmoscopy: no photophobia Neck: Neck: normal visual inspection and no meningeal signs Chest: Chest palpation & inspection: normal inspection of the chest Resp: Effort & Inspection: normal respiratory effort Auscultation: clear to auscultation bilaterally Cardio: Rate: regular rate Rhythm: regular rhythm GI: Inspection: non-distended GI Palp: Yes Soft to palpation and No Tenderness to palpation present (GI) : General: Yes bladder normal to palpation Back/Spine/Pelvis: Back: no CVA tenderness Skin: General skin exam: normal color Rashes: no rashes Neuro: General: patient oriented x3 Cranial nerves: Yes Nystagmus not present Speech: normal speech Other: grossly intact Extrem: General: normal to inspection and no clubbing, cyanosis or edema Psych: Mental Status: mental status grossly normal Course Course Emergency Course: 79 y/o male presents to the ED c/o my thinks I'm dehydrated. Denies any symptoms. PE: mild oral mucosa dryness, o/w no acute findings CBC: H/H 15.1/45.9, Plt 125; wbc 15.9 with 79 S, 13 L, 6 M CMP: Na 137, K 4.1, Cl 100, CO 29, Glc 152, BUN 32, Cr 1.96; LFT's normal; eGFR 33 Lactic: 1.5 UA: 51-75 wbc, 2+ LE, N+, 3-5 rbc, 2+ blood, 2+ protein, 2+ bacteria Blood C&S: pending Covid /Influenza /RSV: negative EKG: NSR, 72, RBBB, NAC CXR: NAD Tx: NS w/o *reviewed and discussed results with patient and his . Discussed further management. Both voice understanding and agreement. Patient to continue antibiotic he was prescribed yesterday (has only had 1 dose) until complete course. Rest, push fluids and f/u PCP. Instructions Vital Signs Vital signs: Vital Signs Pulse Rate 78 07/31/24 06:33 Respiratory Rate 20 07/31/24 06:33 Blood Pressure 119/60 07/31/24 06:33 Pulse Oximetry 98 07/31/24 06:33 Pulse Rate 74 07/31/24 08:30 Respiratory Rate 18 07/31/24 08:30 Blood Pressure 124/71 07/31/24 08:30 Pulse Oximetry 99 07/31/24 08:30 Oxygen Delivery Room Air 07/31/24 08:30 Medical Decision Making Vital Signs Vital Signs: Vital Signs Pulse Rate 78 07/31/24 06:33 Respiratory Rate 20 07/31/24 06:33 Blood Pressure 119/60 07/31/24 06:33 Pulse Oximetry 98 07/31/24 06:33 Pulse Rate 74 07/31/24 08:30 Respiratory Rate 18 07/31/24 08:30 Blood Pressure 124/71 07/31/24 08:30 Pulse Oximetry 99 07/31/24 08:30 Oxygen Delivery Room Air 07/31/24 08:30 Discharge Plan Discharge Clinical Impression: Acute UTI, Weakness generalized, Chronic renal insufficiency, Dehydration, mild Patient Disposition: Home, Self-Care Condition: Stable Instructions: Antibiotic Form, Dehydration (ED), Urinary Tract Infection in Men (ED), Weakness (ED) Additional Instructions: Continue antibiotic as prescribed until course completed Rest Push fluids Follow up Primary Care Physician Return as needed Patient Language: Malian Prescriptions: No Action potassium citrate 10 mEq (1,080 mg) tablet extended release 10 meq PO DAILY Rybelsus 3 mg tablet 3 mg PO 3XW Patient Comments: TAKES THREE x's A WK-Tuesdays and Fridays oxybutynin chloride 5 mg tablet 5 mg PO TID Anoro Ellipta 62.5-25 mcg/actuation blister with device 1 inh inhalation Q24H Qty: 60 11RF donepezil 10 mg tablet 10 mg PO QHS aspirin 81 mg tablet,delayed release (DR/EC) 81 mg PO DAILY Centrum Silver 400-250 mcg tablet,chewable 1 tablet PO DAILY cranberry fruit 500 mg tablet,chewable 500 mg PO 2XW rosuvastatin 20 mg tablet 20 mg PO DAILY memantine [Namenda] 10 mg tablet 10 mg PO Q12H citalopram 10 mg tablet 10 mg PO DAILY Patient Comments: am furosemide 20 mg tablet 20 mg PO DAILY Patient Comments: am loratadine [Claritin] 10 mg Tablet 10 mg PO DAILY magnesium oxide 400 mg (241.3 mg magnesium) tablet 400 mg PO BID Qty: 180 3RF amoxicillin-pot clavulanate 250-125 mg tablet 1 tablet PO TID Qty: 21 0RF Follow-up/Referrals: Alonzo Campoverde MD [Primary Care Provider] - Time of Disposition: 10:00 This report may have been done utilizing a voice recognition system. Attempts have been made to correct errors. However, there may be uncorrected grammatical, spelling, and recognition errors present. Report Initialized date/time: Travis Dominguez MD 07/31/24 0936 Electronically signed by: Travis Dominguez MD 07/31/24 [id number] MTDD
[2024-07-31 10:10] VITALS: BP 123/69; PULSE 73; RESP 20; TEMP 36.7; O2SAT 99
--- NOTE | 2024-08-06 14:13 | PC.NURSE ---
BLOOD CULTURE FINAL NO GROWTH AFTER 5 DAYS
== END 2024-07-31 10:10 | disposition home or self-care (01) ==
PROVIDERS: Emergency Provider Emergency Medicine; PCP Internal Medicine
DX: I12.9 Hypertensive chronic kidney disease with stage 1 through stage 4 chronic kidney disease, or unspecified chronic kidney disease (principal); E11.22 Type 2 diabetes mellitus with diabetic chronic kidney disease; N18.9 Chronic kidney disease, unspecified; N39.0 Urinary tract infection, site not specified; R53.1 Weakness; E78.5 Hyperlipidemia, unspecified; F03.90 Unspecified dementia, unspecified severity, without behavioral disturbance, psychotic disturbance, mood disturbance, and anxiety; Z20.822 Contact with and (suspected) exposure to COVID-19
CPT/HCPCS: 36415; 71045; 80053; 81001; 83605; 85025; 85055; 87040; 87637; 93005; 99283; J7030

== ENCOUNTER 2024-08-01 15:41 | Outpatient (NON) | payer MEDICARE, SELFPAY ==
[2024-08-01 16:27] LABS: Hematocrit 41.5 % (37.0-46.0); Hemoglobin 13.4 g/dL (12.4-15.3); Immature Platelet Fraction Pct 4.3 % (1.0-7.0); Mean Corpuscular HGB Conc 32.3 g/dL (32-36); Mean Corpuscular Hemoglobin 28.2 pg (27.0-31.0); Mean Corpuscular Volume 87.2 fL (78.0-102.0); Mean Platelet Volume 11.3 fl (8.7-11.0); Platelet Count Result 121 K/mm3 (150-420); Red Blood Count 4.76 M/mm3 (4.70-6.10); Red Cell Distribution Width 14.5 % (11.6-14.4); White Blood Count 12.6 K/mm3 (4.8-10.8)
[2024-08-01 16:46] LABS: Alanine Aminotransferase 36 U/L (16-63); Albumin Level 2.7 g/dL (3.4-5.0); Alkaline Phosphatase 93 U/L (46-116); Amylase 17 U/L (25-115); Anion Gap 10 mmol/L (4-12); Aspartate Amino Transferase 63 U/L (15-37); Bilirubin,Total 0.8 mg/dL (0.00-1.00); Blood Urea Nitrogen 34 mg/dL (7-18); Carbon Dioxide 29 mmol/L (21-32); Chloride 100 mmol/L (98-108); Estimated Glomerular Filt Rate 36; Glucose 158 mg/dL (70-99); Lipase 18 U/L (16-77); Osmolality Calculated 298 mOsm/kg (285-295); Potassium 4.3 mmol/L (3.5-5.1); Sodium 139 mmol/L (136-145)
[2024-08-01 16:52] LABS: CRP > 25.0 mg/dL (0.0-0.9)
[2024-08-01 17:42] LABS: Erythrocyte Sedimentation Rate 38 mm/hr (0-20)
== END 2024-08-01 15:42 | disposition home or self-care (01) ==
LOC: CHSLAB 15:43
PROVIDERS: PCP Internal Medicine; Visit Provider Internal Medicine
DX: N39.0 Urinary tract infection, site not specified (principal); R10.9 Unspecified abdominal pain
CPT/HCPCS: 36415; 80053; 82150; 83690; 85027; 85055; 85652; 86140

== ENCOUNTER 2024-08-02 13:51 | Outpatient (CLI) | payer MEDICARE, SELFPAY ==
--- NOTE | ~2024-08-02 | CT_ITS ---
EXAMINATION: CT abdomen pelvis wo con DATE: 08/02/2024 14:33 INDICATION: Abnormal liver function tests. TECHNIQUE: Computed tomography (CT) of the abdomen and pelvis was performed without intravenous contr ast. Automated exposure control and iterative reconstruction technique were employed. The dose-length product was 856.36 mGy-cm. COMPARISON: CT abdomen and pelvis 05/26/2024 FINDINGS: The visualized portions of the lung bases demonstrate mild atelectasis. No pleural effusion . The heart size is normal. There are changes of mitral valve replacement. There are coronary artery calcifications. No pericardial effusion. The liver, gallbladder, spleen, pancreas, and adrenal glands are normal. There are cysts in the kidneys measuring up to 5.4 cm on the left. There are 3 stones in left kidney measuring up to 5 mm. 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 The bladder is distended. Stool distends the rectum. There is a right in guinal hernia containing fat. The appendix is fluid-filled and dilated to 20 mm with irregular margin . There is wall thickening of the adjacent sigmoid colon and ileum. There is a 4.0 x 2.8 x 2.9 cm per iappendiceal abscess. There is extensive fat stranding in right lower quadrant. There is trace ascite s in right paracolic gutter. There is a total left hip arthroplasty. There are bridging endplate oste ophytes at multiple levels in the spine, consistent with diffuse idiopathic skeletal hyperostosis (DI SH). There is mild lumbar spondylosis. IMPRESSION: 1. Ruptured acute appendicitis with 4.0 x 2.8 x 2.9 cm periappendiceal abscess. Reviewed, dictated and finalized at location [facility]. [facility]
== END 2024-08-02 13:52 | disposition home or self-care (01) ==
LOC: CHSIMG 13:53
PROVIDERS: PCP Internal Medicine; Visit Provider Internal Medicine
DX: K35.33 Acute appendicitis with perforation, localized peritonitis, and gangrene, with abscess (principal); R74.01 Elevation of levels of liver transaminase levels
CPT/HCPCS: 74176

== ENCOUNTER 2024-08-02 15:24 | Emergency (ER) | payer MEDICARE, SELFPAY ==
[2024-08-02] VITALS (10 sets, daily range): BP systolic 107–125; BP diastolic 46–71; PULSE 60–76; RESP 14–20; TEMP 36.4; O2SAT 97–100
--- NOTE | 2024-08-02 15:36 | ECG_ITS ---
Test Date: 2024-08-02 15:54:09 Measurements Intervals [place] Rate: 72 P: 79 ID: [id number] QRS: 95 QRSD: 143 T: 77 QT: 406 QTc: 447 Interpretive Statements SINUS RHYTHM RIGHT BUNDLE BRANCH BLOCK [120+ ms QRS DURATION, UPRIGHT V1, 40+ ms S IN I/aVL/V4/V5/V6] Compared to ECG 07/31/2024 06:53:20 NO SIGNIFICANT CHANGES Electronically Signed On 08-02-2024 16:47:18 PIG STICKER by Trish Fry M.D.
--- NOTE | 2024-08-02 15:46 | ED.ABDPAIN ---
HPI - Abdominal Pain General Chief Complaint: Abdominal Pain Stated Complaint: abn ct Time Seen by Provider: 08/02/24 15:36 Source: patient and family Mode of arrival: wheelchair History of Present Illness HPI narrative: This is a 79-year-old male that presents from his primary care doctor's office, after he has been having some right lower quadrant discomfort with palpation and patient had a CT scan without contrast ordered by his primary care doctor and results show that he has a ruptured appendix acutely with a periappendiceal abscess. The patient currently resting comfortably does not have any abdominal pain unless palpated in the right lower quadrant. Currently his vitals are stable blood pressure 118/68 heart rate 76 with a respiratory rate of 14 patient is afebrile satting at 99% room air. Patient not having any dysuria no flank pain no chest pain no shortness of breath. Patient does have a history of dementia, hypertension diabetes hyperlipidemia. Patient was seen in the emergency department approximately 2 days ago for urinary tract infection and treated with antibiotics at that time. Patient has been having weakness with frequent falls and was seeing his primary care physician today for that purpose but as mentioned earlier was having right lower quadrant pain elicited with palpation and sent to the CT scanner which showed a ruptured appendix acutely and was sent to the ER directly from the radiology department and CT scan. MD elicited complaint: abdominal pain Onset (ago): hour(s) Pain Consistency: constant Location: RLQ Severity: moderate Pain scale (0-10): 0 Migration to: RLQ Exacerbating factors: eating Related Data Home Medications ?Medication ?Instructions ?Recorded ?Confirmed ?Last Taken ?Type memantine 10 mg tablet (Namenda) 10 mg PO Q12H 07/13/19 07/10/24 05/26/24 09:00 History rosuvastatin 20 mg tablet 20 mg PO DAILY 07/13/19 07/10/24 05/25/24 09:00 History aspirin 81 mg tablet,delayed 81 mg PO DAILY 01/14/22 07/10/24 06/04/24 History release donepezil 10 mg tablet 10 mg PO QHS 01/14/22 07/10/24 05/25/24 21:00 History pzsdvcnnkkxu-nhurblv-iyers acid 1 tablet PO DAILY 01/14/22 07/10/24 06/04/24 History 400 mcg-lutein 250 mcg chewable tablet (Centrum Silver) potassium citrate 10 mEq (1,080 10 meq PO DAILY 05/01/23 07/10/24 05/25/24 09:00 History mg) tablet,extended release oxybutynin chloride 5 mg tablet 5 mg PO TID 05/15/23 07/10/24 05/25/24 17:00 History citalopram 10 mg tablet 10 mg PO DAILY 04/16/24 07/10/24 06/12/24 06:00 History furosemide 20 mg tablet 20 mg PO DAILY 04/16/24 07/10/24 05/25/24 09:00 History loratadine 10 mg tablet (Claritin) 10 mg PO DAILY 04/16/24 07/10/24 05/25/24 09:00 History cranberry fruit 500 mg chewable 500 mg PO 2XW 07/10/24 07/10/24 Unknown History tablet semaglutide 3 mg tablet (Rybelsus) 3 mg PO 3XW 07/10/24 07/10/24 Unknown History Allergies Allergy/AdvReac Type Severity Reaction Status Date / Time No Known Allergies Allergy Verified 07/10/24 11:00 Review of Systems Review of Systems: All systems reviewed & are unremarkable except as noted in HPI and below PMFSH Past Medical History Medical History Urinary incontinence (10/03/17) Pedal edema (04/17/18) Dementia ADIS (obstructive sleep apnea) COPD (chronic obstructive pulmonary disease) DM2 (diabetes mellitus, type 2) Hyperlipidemia Hypertension Depression Overweight Surgical History Surgical History History of mitral valve repair 2014. [facility] History of hernia repair Hx of cataract surgery Right Eye Family History Family History Father , Age 86 Acute myocardial infarction Dementia Mother , Age 83 No problems noted. Other Family history of cardiovascular disease Social History Social History Smoking status: Never smoker Second hand tobacco smoke exposure: No Alcohol intake: never Substance use: never Substance use type: does not use Do You Feel Safe in your Home?: Yes Lack of Transportation: No Lack of Food: Never True Current Housing: I Have Housing Concerned About Future Housing: No Difficulty Paying Gas/Electric Bills: No Difficulty Paying for Meds: No Currently Unemployed: No Education: Decline to Answer Difficulty w/ Childcare or Family Care: No Living arrangements: with family Additional living arrangements comments: Occupation/Education: retired 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 Gender identity (if verbalized by the patient): Male Spiritual care concerns: No Exam Const: General: no acute distress Nutritional Appearance: obese Limitations: no limitations and physical limitations HENMT: Head: normal to inspection Neck: Neck: normal visual inspection Chest: Chest palpation & inspection: normal inspection of the chest Resp: Effort & Inspection: normal respiratory effort Auscultation: clear to auscultation bilaterally Cardio: Rate: regular rate Rhythm: regular rhythm GI: GI Palp: Yes Soft to palpation Auscultation: normal bowel sounds : General: Yes bladder normal to palpation Course Course Emergency Course: Patient is a 71-year-old male currently stable vital signs stable he is afebrile father is currently no abdominal pain but tenderness to the right lower quadrant is elicited with palpation. Will start IV fluids and IV antibiotics with Zosyn and metronidazole. spoke to surgery at [facility] that accepted the patient for transfer, spoke to hospitalist service that also accepted patient for transfer. Vital Signs Vital signs: Vital Signs Temperature 36.4 C 08/02/24 15:34 Pulse Rate 76 08/02/24 15:34 Respiratory Rate 14 08/02/24 15:34 Blood Pressure 118/68 08/02/24 15:34 Pulse Oximetry 99 08/02/24 15:34 Oxygen Delivery Room Air 08/02/24 15:34 Temperature 36.4 C 08/02/24 15:34 Pulse Rate 76 08/02/24 15:34 Respiratory Rate 14 08/02/24 15:34 Blood Pressure 118/68 08/02/24 15:34 Pulse Oximetry 99 08/02/24 15:34 Oxygen Delivery Room Air 08/02/24 15:34 MDM - Abdominal Pain Lab Data 08/02/24 15:36 08/02/24 15:36 Labs: Lab Results 08/02/24 Range/Units 15:36 WBC Pending RBC Pending Hgb Pending Hct Pending MCV Pending MCH Pending MCHC Pending RDW Pending Plt Count Pending MPV Pending Immature Gran % (Auto) Pending Neut % (Auto) Pending Lymph % (Auto) Pending Cannon % (Auto) Pending Eos % (Auto) Pending Baso % (Auto) Pending Lymph # (Auto) Pending Cannon # (Auto) Pending Eos # (Auto) Pending Baso # (Auto) Pending Abs Immat Gran (auto) Pending Absolute Neuts (auto) Pending Absolute Nucleated RBC Pending Nucleated RBC % Pending PT Pending INR Pending APTT Pending Sodium Pending Potassium Pending Chloride Pending Carbon Dioxide Pending Anion Gap Pending BUN Pending Creatinine Pending Estim Creat Clear Calc Pending Estimated GFR Pending Glucose Pending Calculated Osmolality Pending Lactic Acid Pending Calcium Pending Total Bilirubin Pending AST Pending ALT Pending Alkaline Phosphatase Pending C-Reactive Protein Pending Total Protein Pending Albumin Pending Lipase Pending Critical Care Time Critical Care Time Critical Care Time: No Discharge Plan Discharge Clinical Impression: Rupture of appendix Patient Disposition: Acute Care Hospital Condition: Stable Patient Language: Canadian Prescriptions: No Action potassium citrate 10 mEq (1,080 mg) tablet extended release 10 meq PO DAILY Rybelsus 3 mg tablet 3 mg PO 3XW Patient Comments: TAKES THREE x's A WK-Tuesdays and Fridays oxybutynin chloride 5 mg tablet 5 mg PO TID Anoro Ellipta 62.5-25 mcg/actuation blister with device 1 inh inhalation Q24H Qty: 60 11RF donepezil 10 mg tablet 10 mg PO QHS aspirin 81 mg tablet,delayed release (DR/EC) 81 mg PO DAILY Centrum Silver 400-250 mcg tablet,chewable 1 tablet PO DAILY cranberry fruit 500 mg tablet,chewable 500 mg PO 2XW rosuvastatin 20 mg tablet 20 mg PO DAILY memantine [Namenda] 10 mg tablet 10 mg PO Q12H citalopram 10 mg tablet 10 mg PO DAILY Patient Comments: am furosemide 20 mg tablet 20 mg PO DAILY Patient Comments: am loratadine [Claritin] 10 mg Tablet 10 mg PO DAILY magnesium oxide 400 mg (241.3 mg magnesium) tablet 400 mg PO BID Qty: 180 3RF amoxicillin-pot clavulanate 250-125 mg tablet 1 tablet PO TID Qty: 21 0RF Follow-up/Referrals: Alonzo Campoverde MD [Primary Care Provider] - Time of Disposition: 16:37
[2024-08-02 15:51] LABS: Basophils Absolute Auto 0.04 K/mm3 (0.00-0.10); Basophils Percent Auto 0.3 % (0.0-1.0); Eosinophils Percent Auto 0.9 % (1.0-6.0); Hematocrit 40.9 % (37.0-46.0); Hemoglobin 13.6 g/dL (12.4-15.3); Immature Granulocyte Absolute 0.05 K/mm3 (0.00-0.00); Immature Granulocyte Percent A 0.4 % (0.0-0.0); Immature Platelet Fraction Pct 4.2 % (1.0-7.0); Lymphocytes Absolute Auto 1.61 K/mm3 (1.10-4.50); Lymphocytes Percent Auto 13.8 % (18.0-42.0); Mean Corpuscular HGB Conc 33.3 g/dL (32-36); Mean Corpuscular Hemoglobin 28.4 pg (27.0-31.0); Mean Corpuscular Volume 85.4 fL (78.0-102.0); Mean Platelet Volume 10.7 fl (8.7-11.0); Monocytes Absolute Auto 0.96 K/mm3 (0.10-0.90); Monocytes Percent Auto 8.2 % (2.0-11.0); Neutrophils Absolute Auto 8.93 K/mm3 (1.70-7.20); Neutrophils Percent Auto 76.4 % (50.0-70.0); Platelet Count Result 133 K/mm3 (150-420); Red Blood Count 4.79 M/mm3 (4.70-6.10); Red Cell Distribution Width 14.5 % (11.6-14.4); White Blood Count 11.7 K/mm3 (4.8-10.8)
[2024-08-02] MEDS: SODIUM CHLORIDE 0.9% IV 1,000 ML 999 ML IV CONT (15:55)
[2024-08-02] MEDS: PIPERACILLN/TAZ 3.375GM/NS50ML 3.375 GM/50 ML BAG IVPB (15:57)
[2024-08-02 15:59] LABS: Prothrombin Time 10.7 Seconds (9.50-12.1)
[2024-08-02 16:00] LABS: Alanine Aminotransferase 82 U/L (16-63); Albumin Level 2.4 g/dL (3.4-5.0); Alkaline Phosphatase 121 U/L (46-116); Anion Gap 8 mmol/L (4-12); Aspartate Amino Transferase 140 U/L (15-37); Bilirubin,Total 0.8 mg/dL (0.00-1.00); Blood Urea Nitrogen 29 mg/dL (7-18); Calcium 10.1 mg/dL (8.5-10.1); Carbon Dioxide 28 mmol/L (21-32); Chloride 101 mmol/L (98-108); Estimated CRCL calculation 44 ml/min; Estimated Glomerular Filt Rate 40; Glucose 152 mg/dL (70-99); Lipase 24 U/L (16-77); Osmolality Calculated 292 mOsm/kg (285-295); Potassium 3.7 mmol/L (3.5-5.1); Sodium 137 mmol/L (136-145); Total Protein 7.2 g/dL (6.4-8.2)
[2024-08-02 16:01] LABS: CRP > 25.0 mg/dL (0.0-0.9)
[2024-08-02 16:05] LABS: Lactic Acid Reflex 1.6 mmol/L (0.4-2.0)
[2024-08-02] MEDS: metroNIDAZOLE 500 MG/ISO 100ML 500 MG/100 ML BAG 100 MG IVPB (16:23)
[2024-08-02 16:29] LABS: Add Urine Microscopic? YES; Bilirubin Urine Negative (Negative); Blood Urine 1+ (Negative); Color Urine Light Yellow (Yellow); Glucose Urine UA Negative (Negative); Ketones Urine Negative (Negative); Leukocyte Esterase Ur 2+ LEU/UL (Negative); Nitrate Urine Negative (Negative); Protein Urine 2+ (Negative); pH Urine 7.5 (5.0-8.0)
[2024-08-02 16:48] LABS: Appearance Urine Sl Cloudy (Clear); WBC Urine >75 /hpf (0-3)
[2024-08-02 16:49] LABS: Bacteria Urine 2+ /hpf
--- NOTE | 2024-08-04 13:24 | PC.NURSE ---
final urine culture reviewed, no growth.
--- NOTE | 2024-08-04 13:26 | PC.NURSE ---
blood culture preliminary, no growth. awaiting final
--- NOTE | 2024-08-08 12:07 | PC.NURSE ---
FINAL BLOOD CULTURE RESULTS X 2: NO GROWTH AFTER 5 DAYS
== END 2024-08-02 19:34 | disposition short-term general hospital (02) ==
PROVIDERS: Emergency Provider Emergency Medicine; PCP Internal Medicine
DX: K35.32 Acute appendicitis with perforation, localized peritonitis, and gangrene, without abscess (principal); F03.90 Unspecified dementia, unspecified severity, without behavioral disturbance, psychotic disturbance, mood disturbance, and anxiety; I10 Essential (primary) hypertension; E11.9 Type 2 diabetes mellitus without complications; E78.5 Hyperlipidemia, unspecified; J44.9 Chronic obstructive pulmonary disease, unspecified
CPT/HCPCS: 36415; 74176; 80053; 81001; 83605; 83690; 85025; 85055; 85610; 85730; 86140; 87040; 87086; 93005; 96365; 96368; 99285; J1836; J2543; J7030

== ENCOUNTER 2024-08-02 20:52 | Inpatient (IN) | payer MEDICARE, SELFPAY ==
[2024-08-02 20:19] VITALS: BMI 31.3
--- NOTE | 2024-08-02 20:19 | ADMGEN ---
This patient, Rodriguez Coleman, was admitted to Medical Room 249-01. Patient/family oriented to hospital policies and general routines including ID bracelet, bed and alarms, visiting hours, pain management, procedures, bathroom and other care routines, personal items, smoking policy, room service/diet, and visiting hours. Information on how to activate the Rapid Response Team has been discussed. Patient/Family are encouraged to report perceived risks to care and to ask questions if they do not understand what they are told or what they should do.
[2024-08-02 20:24] VITALS: BP 124/58; PULSE 61; RESP 18; TEMP 37.4; O2SAT 100
--- NOTE | 2024-08-02 20:52 | PM.IMHP ---
H&P: HPI History of Present Illness Date/Time: 08/02/24 20:52 Chief Complaint: Abdominal Pain Narrative: 79 y/o M presents here with abdominal tenderness with PMH of dementia, ADIS, COPD, diabetes, HLD, hypertension, depression, and obesity. The patient presents here from [facility] for further management of a ruptured appendix.? In the patient originally presented to his primary care provider's office (Nirali ESTRELLA) for further evaluation of elevated LFTs. Patient had been experiencing right lower quadrant discomfort, particularly with palpation. Recently diagnosed with a UTI and had had severe weakness they attributed to this infection, reports he has barely been able to walk and has had 3 falls at home.?Outpatient CT scan w/o contrast was completed and the PCP was notified of the result showing an acute ruptured appendicitis with a periappendiceal abscess.? The patient was directed to emergency department from the radiology department.? He reports the right lower quadrant discomfort has been ongoing for the past 3-4 days.? Currently reporting lower abdominal pain. ?At [facility], he was started on Zosyn and Flagyl.? Of note, the patient is currently on Augmentin for treatment of a recent UTI which was started on Tuesday and a 10 day course.? Recent urine culture from 07/30/2024 showed E coli with resistance to Ancef, Cefepime, Ceftriaxone, Cipro, Levaquin, and Bactrim. Initial VS at presentation: ?97.6? F, HR 76, RR 14, 118/68, and 99% on RA. ED workup showed: ?WBC 11.7, no anemia, normal coags, no significant electrolyte derangements, creatinine 1.66 and GFR 40 (previously 1.81 and GFR 36 on 08/01/2024), glucose 152, AST 140, ALT 82, CRP > 25, and UA appears consistent with UTI.? CT abdomen/pelvis showed ruptured acute appendicitis with 4.0 x 2.8 x 2.9 cm periappendiceal abscess. Review of Systems Review of Systems: All systems reviewed & are unremarkable except as noted in HPI and below PMFSH Past Medical History Medical History (Updated 08/02/24 @ 20:59 by Melissa Gunter, ROSA) Urinary incontinence (10/03/17) Pedal edema (04/17/18) Dementia ADIS (obstructive sleep apnea) COPD (chronic obstructive pulmonary disease) Hyperlipidemia Hypertension Depression Overweight Surgical History Surgical History History of mitral valve repair 2014. [facility] History of hernia repair Hx of cataract surgery Right Eye Family History Family History Father , Age 86 Acute myocardial infarction Dementia Mother , Age 83 No problems noted. Other Family history of cardiovascular disease Social History Social History Smoking status: Never smoker Second hand tobacco smoke exposure: No Alcohol intake: never Substance use: never Substance use type: does not use Do You Feel Safe in your Home?: Yes Lack of Transportation: No Lack of Food: Never True Current Housing: I Have Housing Concerned About Future Housing: No Difficulty Paying Gas/Electric Bills: No Difficulty Paying for Meds: No Currently Unemployed: No Education: High School Diploma/GED Difficulty w/ Childcare or Family Care: No Living arrangements: with family Additional living arrangements comments: Occupation/Education: retired 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 Gender identity (if verbalized by the patient): Male Spiritual care concerns: No Meds Home Medications and Allergies Home Medications ?Medication ?Instructions ?Recorded ?Confirmed ?Type memantine 10 mg tablet (Namenda) 10 mg PO Q12H 07/13/19 08/02/24 History rosuvastatin 20 mg tablet 20 mg PO DAILY 07/13/19 08/02/24 History aspirin 81 mg tablet,delayed 81 mg PO DAILY 01/14/22 08/02/24 History release donepezil 10 mg tablet 10 mg PO QHS 01/14/22 08/02/24 History cjnfepvrgqke-vchcxzd-jvjow acid 1 tablet PO DAILY 01/14/22 08/02/24 History 400 mcg-lutein 250 mcg chewable tablet (Centrum Silver) potassium citrate 10 mEq (1,080 10 meq PO DAILY 05/01/23 08/02/24 History mg) tablet,extended release oxybutynin chloride 5 mg tablet 5 mg PO TID 05/15/23 08/02/24 History citalopram 10 mg tablet 10 mg PO DAILY 04/16/24 08/02/24 History furosemide 20 mg tablet 20 mg PO DAILY 04/16/24 08/02/24 History loratadine 10 mg tablet (Claritin) 10 mg PO DAILY 04/16/24 08/02/24 History Anoro Ellipta 62.5 mcg-25 1 inh inhalation Q24H #60 ea 06/29/24 08/02/24 Rx mcg/actuation powder for inhalation (umeclidinium-vilanterol) cranberry fruit 500 mg chewable 1,000 mg PO DAILY 07/10/24 08/02/24 History tablet amoxicillin 875 mg-potassium 1 tablet PO Q12H uti 08/02/24 08/02/24 History clavulanate 125 mg tablet magnesium oxide 400 mg (241.3 mg 400 mg PO BID 08/02/24 08/02/24 History magnesium) tablet Allergies Allergy/AdvReac Type Severity Reaction Status Date / Time No Known Allergies Allergy Verified 08/02/24 17:24 Vital Signs Vital Signs - 24 hr 08/02/24 20:24 Temperature 99.3 F Pulse Rate 61 Respiratory Rate 18 Blood Pressure 124/58 L Pulse Oximetry 100 Exam Const: General: comfortable and no acute distress Other: , male, nontoxic appearance HENMT: Face/Nose/Sinus: Normal nares present Mouth: Yes moist mucous membranes Eyes: General: appearance normal, both eyes and all related structures Sclera: sclerae normal Pupils: Equal, round and reactive pupils present EOM: EOMs intact bilaterally Resp: Effort & Inspection: normal respiratory effort Auscultation: clear to auscultation bilaterally Cardio: Rate: regular rate Rhythm: regular rhythm Other: S1-S2 present without murmur, rub, ectopy GI: Auscultation: normal bowel sounds Other: Abdomen rounded, soft. Very tender diffusely, worse in the lower quadrants. Skin: General skin exam: normal color and no rashes or lesions noted Wounds: no wounds Neuro: Speech: normal speech Motor exam (neuro): 5/5 motor strength present throughout Sensory Exam: normal sensation Other: A&O x3 Extrem: General: normal to inspection Psych: Mental Status: mental status grossly normal Affect: normal affect Other: Fair insight and judgment, pleasant Assessment and Plan Assessment and plan (1) Rupture of appendix: Code(s): K35.32 - Acute appendicitis with perforation, localized peritonitis, and gangrene, without abscess Status: Acute Assessment and Plan: - Did not meet SIRS criteria.? Lactic 1.6.? Blood cultures were obtained on 08/02, follow. - CT abdomen/pelvis: Ruptured acute appendicitis with 4.0 x 2.8 x 2.9 cm periappendiceal abscess. - General surgery consulted, awaiting formal recs no surgery this evening, anticipate OR tomorrow - NPO, Q6H Accu-Cheks with hypoglycemia protocol in place while nothing by mouth - IV fluids: 1L bolus -> 75 mL/hr x1L - Started on Zosyn and Flagyl on 08/02, will continue with monotherapy with Zosyn - Analgesics and antipyretics p.r.n. (2) Hypertension: Qualifiers: Hypertension type: primary hypertension Qualified Code(s): I10 - Essential (primary) hypertension Code(s): I10 - Essential (primary) hypertension Status: Chronic Assessment and Plan: - chronic, currently 118/60 - continue home medications: Lasix 20 mg daily, currently held - hydralazine 10 mg IVP p.r.n. for BP greater than 180/90 - monitor (3) Prediabetes: Code(s): R73.03 - Prediabetes Status: Acute Assessment and Plan: - A1C 6.2% on 05/22/2024, prediabetic (4) ADIS (obstructive sleep apnea): Code(s): G47.33 - Obstructive sleep apnea (adult) (pediatric) Status: Chronic Assessment and Plan: - continue home CPAP Plan P.o. home medications held, resume when no longer NPO and appropriate. Most recent urine culture sensitive to Zosyn, will hold home Augmentin that he was recently prescribed for a UTI. Diet: NPO GI Prophylaxis: Not currently indicated DVT Prophylaxis: SCDs Lines: Peripheral Code Status: Full code Quality VTE Prophylaxis VTE prophylaxis: mechanical ordered Hospitalist MIPS Advance Care Plan I have confirmed that the patient's Advanced Care Plan is present, code status is documented, or surrogate decision maker is listed in patient medical record.: Yes Medication Reconciliation I have utilized all available resources to obtain, update and review the patients current medications (includes all prescriptions, OTC, herbals, cannabis, and nutritional supplements).: Yes
[2024-08-02] MEDS: SODIUM CHLORIDE 0.9% IV 1,000 ML 75 ML IV CONT (21:57)
[2024-08-02 22:00] VITALS: BP 118/56; PULSE 60; RESP 18; TEMP 36.7; O2SAT 98
[2024-08-02] MEDS: PIPERACILLN/TAZ 3.375GM/NS50ML 3.375 GM/50 ML BAG IVPB (23:03)
[2024-08-03] VITALS (13 sets, daily range): BP systolic 119–151; BP diastolic 54–95; PULSE 56–89; RESP 14–26; TEMP 36.4–37.7; O2SAT 90–100
[2024-08-03 00:09] LABS: Glucose Point of Care 118 mg/dl (65-105)
[2024-08-03 05:40] LABS: Basophils Absolute Auto 0.1 K/mm3 (0.0-0.1); Basophils Percent Auto 0.7 % (0.2-1.2); Eosinophils Absolute Auto 0.3 K/mm3 (0-0.3); Hematocrit 39.1 % (42.0-52.0); Hemoglobin 12.1 g/dL (14.0-18.0); Immature Granulocyte Absolute 0.07 K/mm3 (0.00-0.031); Immature Granulocyte Percent A 0.7 % (0-0.5); Immature Platelet Fraction Pct 5.8 % (0.9-11.2); Lymphocytes Absolute Auto 1.08 K/mm3 (0.9-3.2); Lymphocytes Percent Auto 10.7 % (18.3-44.2); Mean Corpuscular HGB Conc 30.9 g/dl (32-36); Mean Corpuscular Hemoglobin 28.1 pg (26-34); Mean Corpuscular Volume 90.9 fl (80-100); Monocytes Absolute Auto 0.9 K/mm3 (0.1-0.6); Monocytes Percent Auto 9.2 % (2.6-8.5); Neutrophils Absolute Auto 7.6 K/mm3 (1.3-6.7); Neutrophils Percent Auto 75.7 % (45.5-73.1); Platelet Count Result 127 k/mm3 (150-375); Red Cell Distribution Width 14.9 % (11.5-14.5); White Blood Count 10.1 K/mm3 (4.5-10.0)
[2024-08-03 05:47] LABS: Alanine Aminotransferase 67 U/L (6-50); Alkaline Phosphatase 107 U/L (38-126); Anion Gap 4 mmol/L (4-12); Aspartate Amino Transferase 110 U/L (17-59); Blood Urea Nitrogen 24 mg/dL (9-20); Carbon Dioxide 23 mmol/L (22-30); Chloride 109 mmol/L (98-107); Estimated CRCL calculation 50 ml/min; Estimated Glomerular Filt Rate 49; Glucose 119 mg/dL (65-110); Potassium 3.5 mmol/L (3.4-5.0); Sodium 136 mmol/L (137-145)
[2024-08-03] MEDS: PIPERACILLN/TAZ 3.375GM/NS50ML 3.375 GM/50 ML BAG IVPB ×4 (05:51→23:40)
--- NOTE | 2024-08-03 06:52 | PM.IMPN ---
Progress Note: A&P Assessment and Plan (1) Rupture of appendix: Code(s): K35.32 - Acute appendicitis with perforation, localized peritonitis, and gangrene, without abscess Status: Inactive Assessment and Plan: - Did not meet SIRS criteria.? Lactic 1.6.? Blood cultures were obtained on 08/02, follow. - CT abdomen/pelvis: Ruptured acute appendicitis with 4.0 x 2.8 x 2.9 cm periappendiceal abscess. - NPO, Q6H Accu-Cheks with hypoglycemia protocol in place while nothing by mouth - IV fluids: 1L bolus -> 75 mL/hr x1L - Started on Zosyn and Flagyl on 08/02, will continue with monotherapy with Zosyn - Analgesics and antipyretics p.r.n. - General surgery consulted, awaiting formal recs plan for surgery this afternoon with Dr. Avery (2) Acute UTI: Code(s): N39.0 - Urinary tract infection, site not specified Status: Acute Assessment and Plan: Of note, the patient was currently on Augmentin for treatment of a recent UTI which was started on 07/30 for a 10 day course. - UC obtained on 07/30: Ecoli with ESBL resistance - Most recent urine culture sensitive to Zosyn, will hold home Augmentin that he was recently prescribed for a UTI. (3) Hypertension: Qualifiers: Hypertension type: primary hypertension Qualified Code(s): I10 - Essential (primary) hypertension Code(s): I10 - Essential (primary) hypertension Status: Chronic Assessment and Plan: - chronic, blood pressures currently stable despite holding his lasix - continue home medications: Lasix 20 mg daily, currently held - hydralazine 10 mg IVP p.r.n. for BP greater than 180/90 - monitor (4) Falls: Code(s): R29.6 - Repeated falls Status: Acute Assessment and Plan: reports he has barely been able to walk and has had 3 falls at home. He states that he became weak, falling out of his bed and chair.?They attributed the weakness to the infection. On Tuesday is when he fell out of his bed he did hit his head, but denies LOC. He is not on any anticoagulation and has no neuro deficits. No head CT required at this time. - Orthostatic vital signs tomorrow - PT/OT following surgery (5) Chronic kidney disease: Code(s): N18.9 - Chronic kidney disease, unspecified Status: Acute Assessment and Plan: BUN/Cr 29/1.66 on admission, baseline appears to be 1.2-1.6 - BUN/Cr 24/1.4 on am labs - Avoid nephrotoxic medications - Renally dose medications - Monitor (6) Prediabetes: Code(s): R73.03 - Prediabetes Status: Acute Assessment and Plan: - A1C 6.2% on 05/22/2024, prediabetic (7) ADIS (obstructive sleep apnea): Code(s): G47.33 - Obstructive sleep apnea (adult) (pediatric) Status: Chronic Assessment and Plan: - continue home CPAP Plan Diet: NPO GI Prophylaxis: Not currently indicated DVT Prophylaxis: SCDs Lines: Peripheral Code Status: Full code Time Spent With Patient Time with patient: 25 - 35 minutes Subjective Date/time seen: 08/03/24 06:52 Interval history: 79 year old male with PMH of dementia, ADIS, COPD, diabetes, HLD, hypertension, depression, and obesity presents to the hospital with abdominal tenderness. Patient is pleasant lying comfortably in bed with family at bedside. He states that his pain is currently well controlled. He has no complaints at this time denying chest pain, shortness of breath, nausea/vomiting. He is to undergo surgery this afternoon with Dr. Avery. Review of Systems Review of Systems: All systems reviewed & are unremarkable except as noted in HPI and below Exam Narrative: AF HR 69 RR 18 SpO2 94 BP 121/58 General: male in no acute respiratory distress who is nontoxic appearing, lying semi recumbent in bed. HEENT: Normocephalic. Atraumatic. Extraocular movement intact. Sclera clear and anicteric. No facial asymmetry. Chest: Lungs are clear to auscultation bilaterally. No wheezes or crackles. CV: Heart was regular rate and rhythm. S1/S2. No murmurs, gallops, or rubs. Abd: Abdomen was soft. Tenderness throughout worse in the RLQ. Nondistended. Positive bowel sounds. No organomegaly or masses. Ext: No clubbing, cyanosis, or edema. 2+ DP pulses bilaterally. Neuro: Speech is clear. Objective Data Vital Signs Vital Signs: Vital Signs - 24 hr 08/02/24 20:24 08/02/24 20:56 08/02/24 22:00 Temperature 99.3 F 98.1 F Pulse Rate 61 60 Respiratory Rate 18 18 Blood Pressure 124/58 L 118/56 L Pulse Oximetry 100 98 Oxygen Delivery Room Air 08/03/24 00:05 08/03/24 00:48 08/03/24 06:00 Temperature 99.4 F Pulse Rate 82 69 Respiratory Rate 26 H 20 18 Blood Pressure 121/58 L Pulse Oximetry 96 94 Oxygen Delivery Autopap Intake/Output Intake/Output: Intake & Output 07/31/24 08/01/24 08/02/24 08/03/24 23:59 23:59 23:59 23:59 Intake Total 50 50 Balance 50 50 Meds/Results Medications: Active Medications Generic Name Dose Route Start Last Admin Trade Name Freq PRN Reason Stop Dose Admin Acetaminophen 650 mg 08/02/24 20:52 Acetaminophen 325 Mg Tablet PO Q4H PRN Mild Pain (1-3) or Fever Hydrocodone Bitart/Acetaminophen 1 tab 08/02/24 20:52 Hydrocodone/Acetaminophen (*Crx) 5-325 Mg Tablet PO Q4H PRN Moderate Pain (4-6) Bisacodyl 5 mg 08/02/24 20:52 Bisacodyl 5 Mg Tablet Ec PO DAILY PRN Constipation Dextrose 12.5 gm 08/02/24 20:56 Dextrose 50% 25 Gm/50 Ml Syringe IV PUSH PRN PRN Hypoglycemia Protocol Glucagon 1 mg 08/02/24 20:56 Glucagon For Inj 1 Mg Vial IM PRN PRN Hypoglycemia Protocol Glucose 15 gm 08/02/24 20:56 Glucose Oral Gel 15 Gm Of Glucse In 37.5 Gm Tube PO PRN PRN Hypoglycemia Protocol Hydralazine HCl 10 mg 08/02/24 21:01 Hydralazine Hcl 20 Mg/Ml Vial IV PUSH Q8H PRN BP greater than 180/90 Sodium Chloride 1,000 mls @ 75 mls/hr 08/02/24 20:53 08/02/24 21:57 Normal Saline Iv IV CONT 08/03/24 10:12 75 mls/hr .[id number] STA Administration Dextrose 1,000 mls @ 100 mls/hr 08/02/24 20:56 Dextrose 5% 1,000 Ml IVPB PRN PRN Hypoglycemia Protocol Piperacillin/Tazobactam/Dextrose 3.375 gm in 50 mls @ 100 mls/hr 08/02/24 23:00 08/03/24 06:29 Zosyn 3.375 Gm/Ns 50 Ml IVPB Infused Q6HR NEISHA Infusion Morphine Sulfate 2 mg 08/02/24 20:52 Morphine Sulfate (*Crx) 2 Mg/Ml Inj IV PUSH Q4H PRN Pain Rated 7-10 Naloxone HCl 0.1 mg 08/02/24 20:52 Naloxone Hcl 0.4 Mg/Ml Vial IV PUSH Q2M PRN Opiate Reversal Ondansetron HCl 4 mg 08/02/24 20:52 Ondansetron Inj 4 Mg/2 Ml Vial IV PUSH Q6H PRN Nausea And Vomiting Labs Labs: Laboratory Results - last 24 hr 08/03/24 08/03/24 00:01 05:29 WBC 10.1 H RBC 4.30 L Hgb 12.1 L Hct 39.1 L MCV 90.9 MCH 28.1 MCHC 30.9 L RDW 14.9 H Plt Count 127 L MPV 11.0 H Immature Gran % (Auto) 0.7 H Neut % (Auto) 75.7 H Lymph % (Auto) 10.7 L [place] % (Auto) 9.2 H Eos % (Auto) 3.0 Baso % (Auto) 0.7 Lymph # (Auto) 1.08 [place] # (Auto) 0.9 H Eos # (Auto) 0.3 Baso # (Auto) 0.1 Abs Immat Gran (auto) 0.07 H Absolute Neuts (auto) 7.6 H Absolute Nucleated RBC 0.000 Nucleated RBC % 0.0 % Immature Plt Fraction 5.8 Sodium 136 L Potassium 3.5 Chloride 109 H Carbon Dioxide 23 Anion Gap 4 BUN 24 H Creatinine 1.40 H Estim Creat Clear Calc 50 Estimated GFR 49 L Glucose 119 H POC Capillary Glucose 118 H Lactic Acid 1.0 Calcium 9.0 Total Bilirubin 1.0 AST 110 H ALT 67 H Alkaline Phosphatase 107 Total Protein 6.0 L Albumin 3.0 L Quality VTE Prophylaxis VTE prophylaxis: mechanical ordered
[2024-08-03 07:01] LABS: Glucose Point of Care 123 mg/dl (65-105)
[2024-08-03] MEDS: MORPHINE SULFATE (*CRX) 2 MG/ML INJ IV PUSH (08:52)
--- NOTE | 2024-08-03 10:10 | P.CONGS_ITS ---
Assessment and Plan Assessment and plan (1) Acute appendicitis with generalized peritonitis and abscess: Qualifiers: Appendicitis gangrene presence: with gangrene Appendicitis perforation presence: with perforation Qualified Code(s): K35.211 - Acute appendicitis with generalized peritonitis, with perforation and abscess Code(s): K35.219 - Acute appendicitis with generalized peritonitis, with abscess, unspecified as to perforation Status: Acute Assessment and Plan: Patient clinically and radiographically shows evidence of ruptured appendicitis with abscess. We discussed options of antibiotic therapy, abscess drainage and antibiotic therapy, and surgery with postoperative drain. We had a thorough discussion. Explained the procedure, risks, benefits as well as usual recovery and potential for complications. Mention specifically potentially experiencing confusion and delirium postoperatively. We discussed the potential for physical therapy after discharge either at home or in a swing bed at [facility]. Possibility of conversion to open surgery was discussed. All questions were answered. Patient and family agree to go ahead. 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 Diabetes mellitus complication status: without complication Qualified Code(s): E11.9 - Type 2 diabetes mellitus without complications Code(s): E11.9 - Type 2 diabetes mellitus without complications Status: Chronic (3) Chronic kidney disease, stage 3a: Code(s): N18.31 - Chronic kidney disease, stage 3a Status: Chronic (4) Dementia: Qualifiers: Dementia type: unspecified type Dementia severity: moderate Dementia behavioral or psychological symptom: unspecified whether behavioral, psychotic, or mood disturbance or anxiety Qualified Code(s): F03.B0 - Unspecified dementia, moderate, without behavioral disturbance, psychotic disturbance, mood disturbance, and anxiety Code(s): F03.90 - Unspecified dementia, unspecified severity, without behavioral disturbance, psychotic disturbance, mood disturbance, and anxiety Status: Chronic History of Present Illness Consult details Consult date: 08/03/24 Reason for consult: abdominal pain Requesting physician: Gordy Valero MD Narrative: Patient is a 79-year-old man with dementia and several other medical conditions. He does live at home with his . He is able to ambulate with a cane. The patient had problems with pyelonephritis and urinary tract stones in April and May of this year. He had a lithotripsy in April and was admitted with pyelonephritis in May. This was treated and seemed better. Patient however was having several falls at home a since July 30. Patient went to the emergency room on July 31 and was diagnosed with the urinary tract infection and started on Augmentin. He continued to have abdominal pain and saw his primary care physician yesterday. A CT scan of the abdomen was done and showed evidence of acute appendicitis with a ruptured appendix. He was seen in the emergency room and [facility]. I talked with Dr. Bonds, emergency room physician, and was agreeable to transfer of the patient to [facility]. He transferred here last night. He has been on antibiotics since being in the emergency room yesterday. He reports that he still has right lower quadrant abdominal pain and pain across lower abdomen that is about the same as yesterday. His exam shows significant right lower quadrant tenderness with guarding. He has leukocytosis. His CRP is 25. I have reviewed his CT scan of the abdomen and pelvis and agree this looks like a ruptured appendicitis with abscess. After discussion, plans are to proceed with laparoscopic appendectomy this afternoon. His and 2 daughters were present at the time of my evaluation. Review of Systems 2 Review of Systems: All systems reviewed & are unremarkable except as noted in HPI and below (HPI) [facility] Past Medical History Medical History Urinary incontinence (10/03/17) Pedal edema (04/17/18) Dementia ADIS (obstructive sleep apnea) COPD (chronic obstructive pulmonary disease) Hyperlipidemia Hypertension Depression Overweight Surgical History Surgical History History of mitral valve repair 2014. [facility] History of hernia repair Hx of cataract surgery Right Eye Family History Family History Father , Age 86 Acute myocardial infarction Dementia Mother , Age 83 No problems noted. Other Family history of cardiovascular disease Social History Social History Smoking status: Never smoker Second hand tobacco smoke exposure: No Alcohol intake: never Substance use: never Substance use type: does not use Do You Feel Safe in your Home?: Yes Lack of Transportation: No Lack of Food: Never True Current Housing: I Have Housing Concerned About Future Housing: No Difficulty Paying Gas/Electric Bills: No Difficulty Paying for Meds: No Currently Unemployed: No Education: High School Diploma/GED Difficulty w/ Childcare or Family Care: No Living arrangements: with family Additional living arrangements comments: Occupation/Education: 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 Gender identity (if verbalized by the patient): Male Spiritual care concerns: No Meds Home Medications and Allergies Home Medications ?Medication ?Instructions ?Recorded ?Confirmed ?Type memantine 10 mg tablet (Namenda) 10 mg PO Q12H 07/13/19 08/02/24 History rosuvastatin 20 mg tablet 20 mg PO DAILY 07/13/19 08/02/24 History aspirin 81 mg tablet,delayed 81 mg PO DAILY 01/14/22 08/02/24 History release donepezil 10 mg tablet 10 mg PO QHS 01/14/22 08/02/24 History rfklpslsmyjk-sriiunq-pfavq acid 1 tablet PO DAILY 01/14/22 08/02/24 History 400 mcg-lutein 250 mcg chewable tablet (Centrum Silver) potassium citrate 10 mEq (1,080 10 meq PO DAILY 05/01/23 08/02/24 History mg) tablet,extended release oxybutynin chloride 5 mg tablet 5 mg PO TID 05/15/23 08/02/24 History citalopram 10 mg tablet 10 mg PO DAILY 04/16/24 08/02/24 History furosemide 20 mg tablet 20 mg PO DAILY 04/16/24 08/02/24 History loratadine 10 mg tablet (Claritin) 10 mg PO DAILY 04/16/24 08/02/24 History Anoro Ellipta 62.5 mcg-25 1 inh inhalation Q24H #60 ea 06/29/24 08/02/24 Rx mcg/actuation powder for inhalation (umeclidinium-vilanterol) cranberry fruit 500 mg chewable 1,000 mg PO DAILY 07/10/24 08/02/24 History tablet amoxicillin 875 mg-potassium 1 tablet PO Q12H uti 08/02/24 08/02/24 History clavulanate 125 mg tablet magnesium oxide 400 mg (241.3 mg 400 mg PO BID 08/02/24 08/02/24 History magnesium) tablet Allergies Allergy/AdvReac Type Severity Reaction Status Date / Time No Known Allergies Allergy Verified 08/03/24 00:56 Vital Signs Vital Signs - 24 hr 08/02/24 20:24 08/02/24 20:56 08/02/24 22:00 Temperature 37.4 C 36.7 C Pulse Rate 61 60 Respiratory Rate 18 18 Blood Pressure 124/58 L 118/56 L Pulse Oximetry 100 98 Oxygen Delivery Room Air 08/03/24 00:05 08/03/24 00:48 08/03/24 06:00 Temperature 37.4 C Pulse Rate 82 69 Respiratory Rate 26 H 20 18 Blood Pressure 121/58 L Pulse Oximetry 96 94 Oxygen Delivery Autopap Exam 2 Const: General: cooperative, healthy appearing, no acute distress, alert, awake, tired appearing and uncomfortable Nutritional Appearance: well nourished HENMT: Head: normocephalic and atraumatic Mouth: Yes Normal oral and palatal mucosa present Eyes: Conjunctivae: conjunctivae normal Pupils: Equal, round and reactive pupils present EOM: EOMs intact bilaterally Neck: Neck: normal visual inspection, no lymphadenopathy and nontender Chest: Chest palpation & inspection: normal palpation of entire chest wall, abnormal inspection of the chest (Median sternotomy scar), no crepitus and no tenderness Resp: Effort & Inspection: normal respiratory effort Auscultation: clear to auscultation bilaterally Cardio: Rate: regular rate Rhythm: regular rhythm Heart sounds: no gallops, no murmurs and no rubs GI: Inspection: no abdominal wall ecchymosis, non-distended, no scars and no visible herniation GI Palp: Yes Soft to palpation, Yes Tenderness to palpation present (GI) (Both lower quadrants but right much more so than left with guarding), Yes Guarding due to palpation present (GI), No Hepatomegaly present, No Splenomegaly present, No Hernia present and No Palpable mass present Auscultation: Hypoactive bowel sounds present Skin: Lesions: no lesions Rashes: no rashes Neuro: General: no focal motor deficits and CN's II-XI intact bilaterally C ranial nerves: Yes Equal, round and reactive pupils present, Yes Bilaterally intact EOM present, Yes facial symmetry and Yes Midline tongue present S peech: normal speech Motor exam (neuro): 5/5 motor strength present throughout and Motor abnormalities not present Extrem: General: no clubbing, cyanosis or edema and edema Psych: Appearance: grossly normal Speech and movement: Clear speech present Affect: normal affect Attitude: cooperative Thought process: Normal thought process present Insight: Fair insight present (Psych) Results Labs 08/03/24 05:29 08/03/24 05:29 Labs: Abnormal lab results 08/03/24 08/03/24 08/03/24 Range/Units 00:01 05:29 06:12 WBC 10.1 H (4.5-10.0) K/mm3 RBC 4.30 L (4.6-6.20) M/mm3 Hgb 12.1 L (14.0-18.0) g/dL Hct 39.1 L (42.0-52.0) % MCHC 30.9 L (32-36) g/dl RDW 14.9 H (11.5-14.5) % Plt Count 127 L (150-375) k/mm3 MPV 11.0 H (7.4-10.4) fl Immature Gran % (Auto) 0.7 H (0-0.5) % Neut % (Auto) 75.7 H (45.5-73.1) % Lymph % (Auto) 10.7 L (18.3-44.2) % [place] % (Auto) 9.2 H (2.6-8.5) % [place] # (Auto) 0.9 H (0.1-0.6) K/mm3 Abs Immat Gran (auto) 0.07 H (0.00-0.031) K/mm3 Absolute Neuts (auto) 7.6 H (1.3-6.7) K/mm3 Sodium 136 L (137-145) mmol/L Chloride 109 H (98-107) mmol/L BUN 24 H (9-20) mg/dL Creatinine 1.40 H (0.7-1.3) mg/dL Estimated GFR 49 L (59 - ) Glucose 119 H (65-110) mg/dL POC Capillary Glucose 118 H 123 H (65-105) mg/dl AST 110 H (17-59) U/L ALT 67 H (6-50) U/L Total Protein 6.0 L (6.3-8.2) g/dL Albumin 3.0 L (3.5-5.1) g/dL Diabetes panel 08/03/24 Range/Units 05:29 Sodium 136 L (137-145) mmol/L Potassium 3.5 (3.4-5.0) mmol/L Chloride 109 H (98-107) mmol/L Carbon Dioxide 23 (22-30) mmol/L BUN 24 H (9-20) mg/dL Creatinine 1.40 H (0.7-1.3) mg/dL Glucose 119 H (65-110) mg/dL Calcium 9.0 (8.4-10.2) mg/dL AST 110 H (17-59) U/L ALT 67 H (6-50) U/L Alkaline Phosphatase 107 (38-126) U/L Total Protein 6.0 L (6.3-8.2) g/dL Albumin 3.0 L (3.5-5.1) g/dL Calcium panel 08/03/24 Range/Units 05:29 Calcium 9.0 (8.4-10.2) mg/dL Albumin 3.0 L (3.5-5.1) g/dL Pituitary panel 08/03/24 Range/Units 05:29 Sodium 136 L (137-145) mmol/L Potassium 3.5 (3.4-5.0) mmol/L Chloride 109 H (98-107) mmol/L Carbon Dioxide 23 (22-30) mmol/L BUN 24 H (9-20) mg/dL Creatinine 1.40 H (0.7-1.3) mg/dL Glucose 119 H (65-110) mg/dL Calcium 9.0 (8.4-10.2) mg/dL Adrenal panel 08/03/24 Range/Units 05:29 Sodium 136 L (137-145) mmol/L Potassium 3.5 (3.4-5.0) mmol/L Chloride 109 H (98-107) mmol/L Carbon Dioxide 23 (22-30) mmol/L BUN 24 H (9-20) mg/dL Creatinine 1.40 H (0.7-1.3) mg/dL Glucose 119 H (65-110) mg/dL Calcium 9.0 (8.4-10.2) mg/dL Total Bilirubin 1.0 (0.2-1.3) mg/dL AST 110 H (17-59) U/L ALT 67 H (6-50) U/L Alkaline Phosphatase 107 (38-126) U/L Total Protein 6.0 L (6.3-8.2) g/dL Albumin 3.0 L (3.5-5.1) g/dL All other labs normal.
[2024-08-03 12:41] LABS: Glucose Point of Care 115 mg/dl (65-105)
--- NOTE | 2024-08-03 14:09 | WPDHPUPDATE1 ---
History and Physical Update Update Date/Time: 08/03/24 14:09 History and Physical has been reviewed, including an updated exam of the patient. There are NO changes in the patient's condition. Risks, benefits, and alternatives have been discussed and questions answered. Patient agrees to proceed with procedure.
[2024-08-03 15:07] LABS: Glucose Point of Care 105 mg/dl (65-105)
[2024-08-03] MEDS: LACTATED RINGERS 1,000 ML 30 ML IV CONT ×2 (15:22→18:38)
--- NOTE | 2024-08-03 15:27 | WPDANESEPPF ---
Anes - Initial Pre Proc Eval Procedure: Operation Date: 08/03/24 14:30 Proposed Procedures p Laparoscopic Appendectomy - Pete Avery MD Date/Time: 08/03/24 15:27 Surgeon: Blanche Lpoez PA-C Pre Op Diagnosis: Ruptured Appendicitis Patient Data Age: 79 Gender: M Height: 1.85 m Weight: 107.8 kg Last Vital Signs Temp 36.7 C 08/03/24 14:00 Pulse 61 08/03/24 14:00 Resp 20 08/03/24 14:00 BP 119/54 L 08/03/24 14:00 Pulse Ox 99 08/03/24 14:00 O2 Del Method Room Air 08/03/24 08:00 Allergies Allergy/AdvReac Type Severity Reaction Status Date / Time No Known Allergies Allergy Verified 08/03/24 00:56 Home Medications ?Medication ?Instructions ?Recorded ?Confirmed ?Type memantine 10 mg tablet (Namenda) 10 mg PO Q12H 07/13/19 08/02/24 History rosuvastatin 20 mg tablet 20 mg PO DAILY 07/13/19 08/02/24 History aspirin 81 mg tablet,delayed 81 mg PO DAILY 01/14/22 08/02/24 History release donepezil 10 mg tablet 10 mg PO QHS 01/14/22 08/02/24 History bdcguzxwxeuy-rpqlqfo-rsmzu acid 1 tablet PO DAILY 01/14/22 08/02/24 History 400 mcg-lutein 250 mcg chewable tablet (Centrum Silver) potassium citrate 10 mEq (1,080 10 meq PO DAILY 05/01/23 08/02/24 History mg) tablet,extended release oxybutynin chloride 5 mg tablet 5 mg PO TID 05/15/23 08/02/24 History citalopram 10 mg tablet 10 mg PO DAILY 04/16/24 08/02/24 History furosemide 20 mg tablet 20 mg PO DAILY 04/16/24 08/02/24 History loratadine 10 mg tablet (Claritin) 10 mg PO DAILY 04/16/24 08/02/24 History Anoro Ellipta 62.5 mcg-25 1 inh inhalation Q24H #60 ea 06/29/24 08/02/24 Rx mcg/actuation powder for inhalation (umeclidinium-vilanterol) cranberry fruit 500 mg chewable 1,000 mg PO DAILY 07/10/24 08/02/24 History tablet amoxicillin 875 mg-potassium 1 tablet PO Q12H uti 08/02/24 08/02/24 History clavulanate 125 mg tablet magnesium oxide 400 mg (241.3 mg 400 mg PO BID 08/02/24 08/02/24 History magnesium) tablet Laboratory Tests 08/03/24 08/03/24 08/03/24 00:01 05:29 06:12 WBC 10.1 H K/mm3 (4.5-10.0) RBC 4.30 L M/mm3 (4.6-6.20) Hgb 12.1 L g/dL (14.0-18.0) Hct 39.1 L % (42.0-52.0) MCV 90.9 fl (80-100) MCH 28.1 pg (26-34) MCHC 30.9 L g/dl (32-36) RDW 14.9 H % (11.5-14.5) Plt Count 127 L k/mm3 (150-375) MPV 11.0 H fl (7.4-10.4) Immature Gran % (Auto) 0.7 H % (0-0.5) Neut % (Auto) 75.7 H % (45.5-73.1) Lymph % (Auto) 10.7 L % (18.3-44.2) [place] % (Auto) 9.2 H % (2.6-8.5) Eos % (Auto) 3.0 % (0-4.4) Baso % (Auto) 0.7 % (0.2-1.2) Lymph # (Auto) 1.08 K/mm3 (0.9-3.2) [place] # (Auto) 0.9 H K/mm3 (0.1-0.6) Eos # (Auto) 0.3 K/mm3 (0-0.3) Baso # (Auto) 0.1 K/mm3 (0.0-0.1) Abs Immat Gran (auto) 0.07 H K/mm3 (0.00-0.031) Absolute Neuts (auto) 7.6 H K/mm3 (1.3-6.7) Absolute Nucleated RBC 0.000 K/mm3 (0.0-0.012) Nucleated RBC % 0.0 % (0.0-0.2) % Immature Plt Fraction 5.8 % (0.9-11.2) Sodium 136 L mmol/L (137-145) Potassium 3.5 mmol/L (3.4-5.0) Chloride 109 H mmol/L (98-107) Carbon Dioxide 23 mmol/L (22-30) Anion Gap 4 mmol/L (4-12) BUN 24 H mg/dL (9-20) Creatinine 1.40 H mg/dL (0.7-1.3) Estim Creat Clear Calc 50 ml/min Estimated GFR 49 L (59 - ) Glucose 119 H mg/dL (65-110) POC Capillary Glucose 118 H mg/dl 123 H mg/dl (65-105) (65-105) Lactic Acid 1.0 mmol/L (0.7-2.0) Calcium 9.0 mg/dL (8.4-10.2) Total Bilirubin 1.0 mg/dL (0.2-1.3) AST 110 H U/L (17-59) ALT 67 H U/L (6-50) Alkaline Phosphatase 107 U/L (38-126) Total Protein 6.0 L g/dL (6.3-8.2) Albumin 3.0 L g/dL (3.5-5.1) 08/03/24 08/03/24 12:38 15:04 WBC RBC Hgb Hct MCV MCH MCHC RDW Plt Count MPV Immature Gran % (Auto) Neut % (Auto) Lymph % (Auto) [place] % (Auto) Eos % (Auto) Baso % (Auto) Lymph # (Auto) [place] # (Auto) Eos # (Auto) Baso # (Auto) Abs Immat Gran (auto) Absolute Neuts (auto) Absolute Nucleated RBC Nucleated RBC % % Immature Plt Fraction Sodium Potassium Chloride Carbon Dioxide Anion Gap BUN Creatinine Estim Creat Clear Calc Estimated GFR Glucose POC Capillary Glucose 115 H mg/dl 105 mg/dl (65-105) (65-105) Lactic Acid Calcium Total Bilirubin AST ALT Alkaline Phosphatase Total Protein Albumin Patient hx anesthesia problems: none Family hx anesthesia problems: none Results Review: All pre-operative results and documents have been reviewed as part of the pre-operative evaluation. [facility] Past Medical History Medical History Urinary incontinence (10/03/17) Pedal edema (04/17/18) Dementia ADIS (obstructive sleep apnea) COPD (chronic obstructive pulmonary disease) Hyperlipidemia Hypertension Depression Overweight Surgical History Surgical History History of mitral valve repair 2014. [facility] History of hernia repair Hx of cataract surgery Right Eye Family History Family History Father , Age 86 Acute myocardial infarction Dementia Mother , Age 83 No problems noted. Other Family history of cardiovascular disease Social History Social History Smoking status: Never smoker Second hand tobacco smoke exposure: No Alcohol intake: never Substance use: never Substance use type: does not use Do You Feel Safe in your Home?: Yes Lack of Transportation: No Lack of Food: Never True Current Housing: I Have Housing Concerned About Future Housing: No Difficulty Paying Gas/Electric Bills: No Difficulty Paying for Meds: No Currently Unemployed: No Education: High School Diploma/GED Difficulty w/ Childcare or Family Care: No Living arrangements: with family Additional living arrangements comments: Occupation/Education: retired 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 Informed Consent: The patient's anesthetic plan and its attendant risks and benefits were discussed with the patient/family/POA. Questions were solicited and answers provided to the satisfaction of the patient/family/POA.
[2024-08-03] MEDS: BUPIVACAINE/EPINEPHRINE 0.5% 30 ML VIAL INFILTRATE (17:06)
--- NOTE | 2024-08-03 18:35 | P.OP_ITS ---
Procedure Note - Detailed Date of Procedure 08/03/24 Pre-op Diagnosis Ruptured Appendicitis with gangrene and abscess Post-op Diagnosis Same Procedure Performed Laparoscopic appendectomy with drainage of intra-abdominal abscess Surgeon Pete Avery MD Cardiopulmonary Specialist [facility] Anesthesia General and Local Indications Patient has been having some right lower quadrant abdominal pain. He has had urinary tract problems and frequent UTIs. He had been treated for a UTI 3 days ago but was continuing to have abdominal pain. CT scan showed ruptured appendicitis with abscess. He was started on IV antibiotics and transferred to [facility]. After discussion with the patient, his , his daughters, he is taken to surgery now for laparoscopic appendectomy and drainage of the abscess. Findings Very extensive inflammatory response. Right lower quadrant abscess. Dense adhesions. Ruptured appendix with gangrenous changes. Description of Procedure Patient was taken to surgery and induced into general anesthesia. The abdomen is prepped and draped. Trocars were placed in the usual fashion using bubl optical trocars and a 5 mm camera. The 3 left-sided trocars were placed . Patient was placed in Trendelenburg with the right-side elevated. There were obvious adhesions to the anterior and lateral sidewall of the right lower quadrant. On taking some of these down we found the abscess with purulent fluid. This was suctioned away and the abscess was broken up. We then took down further adhesions of ascending colon and small intestine to the anterolateral abdominal wall. Eventually we came into an area of very thickened distal ileum. I mobilized some of the proximal ascending colon to get better access to the cecum. Then very dense and vascular adhesions were encountered in the area of the cecum with the appendix located retrocecal and posterolateral well covered by cecum and small bowel. Irrigation suctioning and mostly blunt dissection was used to mobilize the distal ileum associated with the ruptured appendix. I had to place an extra 5 mm port in the right upper quadrant for placement of the camera and to allow for additional retraction with the left upper quadrant trocar. Slowly was able to roll the ascending colon and cecum medially. Eventually a large inflammatory mass that was the distal appendix was found. The mesentery and appendix were quite dilated distally. I then was able to grasp the appendix and lift it out of the retroperitoneum in the right lower quadrant. I then continued the dissection to mobilize the cecum and the ju nction of the proximal appendix with the cecum. Dissection in the mesoappendix was carried out. Some small vessel bleeding responded to cautery for hemostasis. Eventually I was able to dissect out the appendix all the way to its base. I skeletonized the base of the appendix. The ruptured portion of the appendix was for 5 cm distal to the base. I then ligated the base of the appendix with a Vicryl endoloop. The appendix was amputated just above the ligature. The mucosa of the appendiceal stump was cauterized. The appendix was placed in an Endo-Catch bag and retrieved through the 10 11 left lower quadrant trocar site. I replaced the 10 11 trocar site. We then exposed, suctioned, and irrigated repeatedly the entire right lower quadrant. There was no evidence of bowel injury or enteric leak. We suctioned away as much of the irrigation as possible. A 19 Ángel drain was then passed into the abdomen through the left- sided mid abdominal 5 mm port. It was positioned in the area of the abscess and the cecum. It was sutured in position with a 2-0 silk suture. I used the Dom cone and an 0 Vicryl suture to close the fascia at the 10 11 left lower quadrant trocar site. We then evacuated CO2 and removed the trocar sleeves. Skin wounds were closed with subcuticular 4-0 Monocryl skin suture. A bandage dressing was placed over the exit site of the CAMMIE drain. The CAMMIE drain was placed to bulb suction. The other incisions were dressed with Exofin surgical adhesive. Patient was then awakened, extubated and taken to recovery in good condition. Sponge and needle counts were correct x2. Estimated Blood Loss -50 Drains Yes (Sin catheter) Packing No Pathology Yes (Appendix) Complications None Condition Stable Disposition PACU [facility] Billing Surgery - Charge Forward: Surgery Billing (Laparoscopic appendectomy with drainage of intra-abdominal abscess)
[2024-08-03 19:10] LABS: Glucose Point of Care 129 mg/dl (65-105)
[2024-08-03] MEDS: LACTATED RINGERS 1,000 ML 100 ML IV CONT (19:58)
[2024-08-03] MEDS: oxyCODONE/ACETAMINOPHEN (*CRX) 5-325 MG TABLET 1 TABLET PO (20:02)
[2024-08-03 21:24] LABS: Glucose Point of Care 149 mg/dl (65-105)
[2024-08-03] MEDS: fentaNYL CITRATE INJ (*CRX) 100 MCG/2 ML VIAL 25 MCG IV PUSH (22:02)
[2024-08-04] VITALS (8 sets, daily range): BP systolic 103–123; BP diastolic 53–62; PULSE 63–92; RESP 12–18; TEMP 36.3–37.2; O2SAT 94–100
[2024-08-04] MEDS: fentaNYL CITRATE INJ (*CRX) 100 MCG/2 ML VIAL 25 MCG IV PUSH (00:05)
[2024-08-04 00:17] LABS: Glucose Point of Care 148 mg/dl (65-105)
[2024-08-04 05:26] LABS: Hematocrit 40.4 % (42.0-52.0); Hemoglobin 12.7 g/dL (14.0-18.0); Mean Corpuscular HGB Conc 31.4 g/dl (32-36); Mean Corpuscular Hemoglobin 27.7 pg (26-34); Platelet Count Result 178 k/mm3 (150-375); Red Blood Count 4.59 M/mm3 (4.6-6.20); Red Cell Distribution Width 15.2 % (11.5-14.5); White Blood Count 11.6 K/mm3 (4.5-10.0)
[2024-08-04 05:41] LABS: Anion Gap 5 mmol/L (4-12); Blood Urea Nitrogen 24 mg/dL (9-20); Calcium 8.5 mg/dL (8.4-10.2); Carbon Dioxide 22 mmol/L (22-30); Chloride 109 mmol/L (98-107); Estimated CRCL calculation 44 ml/min; Estimated Glomerular Filt Rate 42; Glucose 171 mg/dL (65-110); Sodium 136 mmol/L (137-145)
[2024-08-04] MEDS: PIPERACILLN/TAZ 3.375GM/NS50ML 3.375 GM/50 ML BAG IVPB ×4 (05:44→23:43)
[2024-08-04 06:25] LABS: Glucose Point of Care 174 mg/dl (65-105)
[2024-08-04] MEDS: LACTATED RINGERS 1,000 ML 100 ML IV CONT ×2 (06:40→17:08)
--- NOTE | 2024-08-04 07:26 | PM.IMPN ---
Progress Note: A&P Assessment and Plan (1) Rupture of appendix: Code(s): K35.32 - Acute appendicitis with perforation, localized peritonitis, and gangrene, without abscess Status: Inactive Assessment and Plan: - Did not meet SIRS criteria.? Lactic 1.6.? Blood cultures were obtained on 08/02, follow. - CT abdomen/pelvis: Ruptured acute appendicitis with 4.0 x 2.8 x 2.9 cm periappendiceal abscess. - IV fluids: 1L bolus -> 75 mL/hr x1L - Diet: Clear liquids, advance as tolerated - Started on Zosyn and Flagyl on 08/02, will continue with monotherapy with Zosyn - Analgesics and antipyretics p.r.n. - General surgery consulted, awaiting formal recs s/p laparoscopic appendectomy with drainage of intra-abdominal abscess and CAMMIE drain placement (2) Acute UTI: Code(s): N39.0 - Urinary tract infection, site not specified Status: Acute Assessment and Plan: Of note, the patient was currently on Augmentin for treatment of a recent UTI which was started on 07/30 for a 10 day course. - UC obtained on 07/30: Ecoli with ESBL resistance - Most recent urine culture sensitive to Zosyn, will hold home Augmentin that he was recently prescribed for a UTI. (3) Hypertension: Qualifiers: Hypertension type: primary hypertension Qualified Code(s): I10 - Essential (primary) hypertension Code(s): I10 - Essential (primary) hypertension Status: Chronic Assessment and Plan: - chronic, blood pressures currently stable despite holding his lasix - home medications: Lasix 20 mg daily, currently held - hydralazine 10 mg IVP p.r.n. for BP greater than 180/90 - monitor (4) Falls: Code(s): R29.6 - Repeated falls Status: Acute Assessment and Plan: reports he has barely been able to walk and has had 3 falls at home. He states that he became weak, falling out of his bed and chair.?They attributed the weakness to the infection. On Tuesday is when he fell out of his bed he did hit his head, but denies LOC. He is not on any anticoagulation and has no neuro deficits. No head CT required at this time. - PT/OT (5) Chronic kidney disease: Code(s): N18.9 - Chronic kidney disease, unspecified Status: Acute Assessment and Plan: BUN/Cr 29/1.66 on admission, baseline appears to be 1.2-1.6 - BUN/Cr 24/1.6 on am labs - Avoid nephrotoxic medications - Renally dose medications - Monitor (6) Prediabetes: Code(s): R73.03 - Prediabetes Status: Acute Assessment and Plan: - A1C 6.2% on 05/22/2024, prediabetic (7) ADIS (obstructive sleep apnea): Code(s): G47.33 - Obstructive sleep apnea (adult) (pediatric) Status: Chronic Assessment and Plan: - continue home CPAP Plan Diet: NPO GI Prophylaxis: Not currently indicated DVT Prophylaxis: SCDs Lines: Peripheral Code Status: Full code Time Spent With Patient Time with patient: 25 - 35 minutes Subjective Date/time seen: 08/04/24 07:26 Interval history: 79 year old male with PMH of dementia, ADIS, COPD, diabetes, HLD, hypertension, depression, and obesity presents to the hospital with abdominal tenderness. Patient is pleasant lying comfortably in bed. He endorses incisional pain and pain around the drain insertion site but notes that this is well controlled on the pain regimen. He has not had a bowel movement and denies passing flatus. He has no other complaints denying chest pain, shortness of breath, nausea/vomiting. He is tolerating his current clear liquid diet well. Review of Systems Review of Systems: All systems reviewed & are unremarkable except as noted in HPI and below Exam Narrative: AF HR 89 RR 16 SpP2 98 BP 103/57 General: male in no acute respiratory distress who is nontoxic appearing, lying semi recumbent in bed. HEENT: Normocephalic. Atraumatic. Extraocular movement intact. Sclera clear and anicteric. No facial asymmetry. Chest: Lungs are clear to auscultation bilaterally. No wheezes or crackles. CV: Heart was regular rate and rhythm. S1/S2. No murmurs, gallops, or rubs. Abd: Abdomen was soft. Tenderness in relation to the incision sites which are clean, dry and intact without noted drainage. CAMMIE drain in place with bloody drainage. Nondistended. Hypoactive bowel sounds. No organomegaly or masses. Ext: No clubbing, cyanosis, or edema. 2+ DP pulses bilaterally. Neuro: Speech is clear. Objective Data Vital Signs Vital Signs: Vital Signs - 24 hr 08/03/24 08:00 08/03/24 14:00 08/03/24 15:22 Temperature 98.1 F 100 F H Pulse Rate 61 56 L Respiratory Rate 20 14 Blood Pressure 119/54 L 125/54 L Pulse Oximetry 99 95 Oxygen Delivery Room Air Room Air Oxygen Flow Rate 08/03/24 18:38 08/03/24 18:50 08/03/24 19:05 Temperature 97.6 F Pulse Rate 83 79 79 Respiratory Rate 16 14 14 Blood Pressure 129/60 129/61 124/64 Pulse Oximetry 98 97 94 Oxygen Delivery Simple Face Mask Simple Face Mask Room Air Oxygen Flow Rate 8 8 08/03/24 19:20 08/03/24 19:48 08/03/24 20:00 Temperature 98.7 F 98.6 F Pulse Rate 79 81 78 Respiratory Rate 18 18 18 Blood Pressure 128/58 L 131/72 129/74 Pulse Oximetry 95 100 100 Oxygen Delivery Room Air Oxygen Flow Rate 08/03/24 20:00 08/03/24 20:30 08/03/24 21:52 Temperature 98.5 F 98.4 F Pulse Rate 89 76 Respiratory Rate 16 18 Blood Pressure 151/95 H 150/85 H Pulse Oximetry 90 96 Oxygen Delivery Room Air Oxygen Flow Rate 08/04/24 00:05 08/04/24 04:29 Temperature 98.3 F 98.4 F Pulse Rate 92 89 Respiratory Rate 18 16 Blood Pressure 112/53 L 103/57 L Pulse Oximetry 96 98 Oxygen Delivery Oxygen Flow Rate Intake/Output Intake/Output: Intake & Output 08/01/24 08/02/24 08/03/24 08/04/24 23:59 23:59 23:59 23:59 Intake Total 50 250 1350 Output Total 470 480 Balance 50 -220 870 Meds/Results Medications: Active Medications Generic Name Dose Route Start Last Admin Trade Name Freq PRN Reason Stop Dose Admin Acetaminophen 500 mg 08/03/24 19:33 Acetaminophen 500 Mg Tablet PO Q6H PRN Pain Rated 1-3 Dextrose 12.5 gm 08/02/24 20:56 Dextrose 50% 25 Gm/50 Ml Syringe IV PUSH PRN PRN Hypoglycemia Protocol Enoxaparin Sodium 40 mg 08/04/24 09:00 Enoxaparin 40 Mg/0.4 Ml Syringe SUB-Q DAILY NEISHA Fentanyl Citrate 12.5 mcg 08/03/24 19:33 Fentanyl Citrate Inj (*Crx) 100 Mcg/2 Ml Vial IV PUSH Q2H PRN Breakthrough Pain Rated 4-6 or NPO Fentanyl Citrate 25 mcg 08/03/24 19:33 08/04/24 00:05 Fentanyl Citrate Inj (*Crx) 100 Mcg/2 Ml Vial IV PUSH 25 mcg Q2H PRN Administration Breakthrough Pain Rated 7-10 or NPO Glucagon 1 mg 08/02/24 20:56 Glucagon For Inj 1 Mg Vial IM PRN PRN Hypoglycemia Protocol Glucose 15 gm 08/02/24 20:56 Glucose Oral Gel 15 Gm Of Glucse In 37.5 Gm Tube PO PRN PRN Hypoglycemia Protocol Hydralazine HCl 10 mg 08/02/24 21:01 Hydralazine Hcl 20 Mg/Ml Vial IV PUSH Q8H PRN BP greater than 180/90 Dextrose 1,000 mls @ 100 mls/hr 08/02/24 20:56 Dextrose 5% 1,000 Ml IVPB PRN PRN Hypoglycemia Protocol Piperacillin/Tazobactam/Dextrose 3.375 gm in 50 mls @ 100 mls/hr 08/02/24 23:00 08/04/24 06:14 Zosyn 3.375 Gm/Ns 50 Ml IVPB Infused Q6HR NEISHA Infusion Lactated Ringer's 1,000 mls @ 100 mls/hr 08/03/24 19:33 08/04/24 06:40 Lr - Lactated Ringers Iv IV CONT 100 mls/hr .Q10H NEISHA Administration Ibuprofen 800 mg in 200 mls @ 400 mls/hr 08/03/24 19:33 Caldolor 800 Mg/200 Ml IVPB Q6H PRN Breakthrough Pain Rated 1-3 or NPO Naloxone HCl 0.1 mg 08/03/24 19:33 Naloxone Hcl 0.4 Mg/Ml Vial IV PUSH Q2M PRN Opiate Reversal Oxycodone/Acetaminophen 1 tablet 08/03/24 19:33 08/03/24 20:02 Oxycodone/Acetaminophen (*Crx) 5-325 Mg Tablet PO 1 tablet Q4H PRN Administration Pain Rated 4-6 Labs Labs: Laboratory Results - last 24 hr 08/03/24 08/03/24 08/03/24 12:38 15:04 19:07 WBC RBC Hgb Hct MCV MCH MCHC RDW Plt Count MPV Sodium Potassium Chloride Carbon Dioxide Anion Gap BUN Creatinine Estim Creat Clear Calc Estimated GFR Glucose POC Capillary Glucose 115 H 105 129 H Calcium 08/03/24 08/03/24 08/04/24 20:33 23:59 05:01 WBC 11.6 H RBC 4.59 L Hgb 12.7 L Hct 40.4 L MCV 88.0 MCH 27.7 MCHC 31.4 L RDW 15.2 H Plt Count 178 MPV 11.0 H Sodium 136 L Potassium 4.0 Chloride 109 H Carbon Dioxide 22 Anion Gap 5 BUN 24 H Creatinine 1.60 H Estim Creat Clear Calc 44 Estimated GFR 42 L Glucose 171 H POC Capillary Glucose 149 H 148 H Calcium 8.5 08/04/24 06:03 WBC RBC Hgb Hct MCV MCH MCHC RDW Plt Count MPV Sodium Potassium Chloride Carbon Dioxide Anion Gap BUN Creatinine Estim Creat Clear Calc Estimated GFR Glucose POC Capillary Glucose 174 H Calcium Quality VTE Prophylaxis VTE prophylaxis: mechanical ordered
[2024-08-04] MEDS: ENOXAPARIN 40 MG/0.4 ML SYRINGE SUB-Q (10:20)
[2024-08-04] MEDS: oxyCODONE/ACETAMINOPHEN (*CRX) 5-325 MG TABLET 1 TABLET PO (10:25)
[2024-08-04] MEDS: MEMANTINE 10 MG TABLET PO ×2 (12:36→20:53)
[2024-08-04 12:41] LABS: Glucose Point of Care 139 mg/dl (65-105)
--- NOTE | 2024-08-04 16:00 | PCPTNOTE ---
attempted PT eval, pt politely declined stating he was too sore but is willing to try tomorrow morning, will follow
[2024-08-04] MEDS: MAGNESIUM OXIDE 400 MG TABLET PO (17:10)
[2024-08-04 18:33] LABS: Glucose Point of Care 130 mg/dl (65-105)
--- NOTE | 2024-08-04 18:52 | WPDPN ---
Progress Note: A&P Assessment and Plan (1) Hypertension: Qualifiers: Hypertension type: primary hypertension Qualified Code(s): I10 - Essential (primary) hypertension Code(s): I10 - Essential (primary) hypertension Status: Chronic Assessment and Plan: Okay to take his usual oral antihypertensive medications from surgery standpoint. Management as per hospitalist service. (2) DM2 (diabetes mellitus, type 2): Qualifiers: Diabetes mellitus exterminator termite insulin use: without exterminator termite use Diabetes mellitus complication status: without complication Qualified Code(s): E11.9 - Type 2 diabetes mellitus without complications Code(s): E11.9 - Type 2 diabetes mellitus without complications Status: Chronic Assessment and Plan: Management as per hospitalist service. He is not eating a regular diet yet so would not likely be placed in back on was full-dose diabetes medications until he is eating better. (3) Acute appendicitis with generalized peritonitis and abscess: Qualifiers: Appendicitis gangrene presence: with gangrene Appendicitis perforation presence: with perforation Qualified Code(s): K35.211 - Acute appendicitis with generalized peritonitis, with perforation and abscess Code(s): K35.219 - Acute appendicitis with generalized peritonitis, with abscess, unspecified as to perforation Status: Acute Assessment and Plan: Continue Zosyn for IV antibiotics. Follow white blood cell count. CAMMIE drain in the pelvis in place. Continue to monitor the output. Up out of bed and into chair today. Supportive management through the weekend. (4) Chronic kidney disease, stage 3a: Code(s): N18.31 - Chronic kidney disease, stage 3a Status: Chronic Assessment and Plan: Creatinine slightly increased after surgery. Will increase his IV fluids [id number] for now and repeat his chemistry tomorrow to follow his renal function. Subjective Date/time seen: 08/04/24 18:52 Interval history: Patient is postoperative day 1 after laparoscopic appendectomy for perforated appendicitis. He had drainage of abscess as well. Abdominal drain was left in place postsurgically. He is awake and alert today. Tried some liquids but got a little nauseated. He does not have much of an appetite yet. White blood cell count 11,600 today. Was 10,100 yesterday. No fever. No tachycardia. Exam GI: Other: Abdomen is soft and minimally distended. Port sites positions are healing well. Expected mild tenderness around the port sites but no generalized peritoneal signs. CAMMIE drain output is serosanguineous without feculent material. Objective Data Vital Signs Vital Signs: Vital Signs - 24 hr 08/03/24 19:05 08/03/24 19:20 08/03/24 19:48 Temperature 37.1 C Pulse Rate 79 79 81 Respiratory Rate 14 18 18 Blood Pressure 124/64 128/58 L 131/72 Pulse Oximetry 94 95 100 Oxygen Delivery Room Air Room Air 08/03/24 20:00 08/03/24 20:00 08/03/24 20:30 Temperature 37.0 C 36.9 C Pulse Rate 78 89 Respiratory Rate 18 16 Blood Pressure 129/74 151/95 H Pulse Oximetry 100 90 Oxygen Delivery Room Air 08/03/24 21:52 08/04/24 00:05 08/04/24 04:29 Temperature 36.9 C 36.8 C 36.9 C Pulse Rate 76 92 89 Respiratory Rate 18 18 16 Blood Pressure 150/85 H 112/53 L 103/57 L Pulse Oximetry 96 96 98 Oxygen Delivery 08/04/24 08:59 08/04/24 09:18 08/04/24 13:18 Temperature 36.3 C L 36.3 C L Pulse Rate 63 63 Respiratory Rate 18 18 Blood Pressure 123/62 123/62 Pulse Oximetry 94 98 98 Oxygen Delivery Room Air 08/04/24 14:00 08/04/24 17:18 Temperature 36.3 C L 36.3 C L Pulse Rate 63 63 Respiratory Rate 18 18 Blood Pressure 123/62 123/62 Pulse Oximetry 98 98 Oxygen Delivery Intake/Output Intake/Output: Intake & Output 08/01/24 08/02/24 08/03/24 08/04/24 23:59 23:59 23:59 23:59 Intake Total 50 250 2680 Output Total 470 1080 Balance 50 -220 1600 Meds/Results Medications: Active Medications Generic Name Dose Route Start Last Admin Trade Name Freq PRN Reason Stop Dose Admin Acetaminophen 500 mg 08/03/24 19:33 Acetaminophen 500 Mg Tablet PO Q6H PRN Pain Rated 1-3 Citalopram Hydrobromide 10 mg 08/05/24 09:00 Citalopram Hydrobromide 10 Mg Tablet PO DAILY NEISHA Dextrose 12.5 gm 08/02/24 20:56 Dextrose 50% 25 Gm/50 Ml Syringe IV PUSH PRN PRN Hypoglycemia Protocol Donepezil HCl 10 mg 08/04/24 21:00 Donepezil Hcl 10 Mg Tablet PO QHS NEISHA Enoxaparin Sodium 40 mg 08/04/24 09:00 08/04/24 10:20 Enoxaparin 40 Mg/0.4 Ml Syringe SUB-Q 40 mg DAILY NEISHA Administration Fentanyl Citrate 12.5 mcg 08/03/24 19:33 Fentanyl Citrate Inj (*Crx) 100 Mcg/2 Ml Vial IV PUSH Q2H PRN Breakthrough Pain Rated 4-6 or NPO Fentanyl Citrate 25 mcg 08/03/24 19:33 08/04/24 00:05 Fentanyl Citrate Inj (*Crx) 100 Mcg/2 Ml Vial IV PUSH 25 mcg Q2H PRN Administration Breakthrough Pain Rated 7-10 or NPO Glucagon 1 mg 08/02/24 20:56 Glucagon For Inj 1 Mg Vial IM PRN PRN Hypoglycemia Protocol Glucose 15 gm 08/02/24 20:56 Glucose Oral Gel 15 Gm Of Glucse In 37.5 Gm Tube PO PRN PRN Hypoglycemia Protocol Hydralazine HCl 10 mg 08/02/24 21:01 Hydralazine Hcl 20 Mg/Ml Vial IV PUSH Q8H PRN BP greater than 180/90 Dextrose 1,000 mls @ 100 mls/hr 08/02/24 20:56 Dextrose 5% 1,000 Ml IVPB PRN PRN Hypoglycemia Protocol Piperacillin/Tazobactam/Dextrose 3.375 gm in 50 mls @ 100 mls/hr 08/02/24 23:00 08/04/24 17:09 Zosyn 3.375 Gm/Ns 50 Ml IVPB 100 mls/hr Q6HR NEISHA Administration Lactated Ringer's 1,000 mls @ 125 mls/hr 08/03/24 19:33 08/04/24 17:08 Lr - Lactated Ringers Iv IV CONT 100 mls/hr .Q8H NEISHA Administration Ibuprofen 800 mg in 200 mls @ 400 mls/hr 08/03/24 19:33 Caldolor 800 Mg/200 Ml IVPB Q6H PRN Breakthrough Pain Rated 1-3 or NPO Loratadine 10 mg 08/05/24 09:00 Loratadine 10 Mg Tablet PO DAILY NEISHA Magnesium Oxide 400 mg 08/04/24 17:00 08/04/24 17:10 Magnesium Oxide 400 Mg Tablet PO 400 mg BID NEISHA Administration Memantine 10 mg 08/04/24 11:50 08/04/24 12:36 Memantine 10 Mg Tablet PO 10 mg Q12HR [facility] Administration Naloxone HCl 0.1 mg 08/03/24 19:33 Naloxone Hcl 0.4 Mg/Ml Vial IV PUSH Q2M PRN Opiate Reversal Oxycodone/Acetaminophen 1 tablet 08/03/24 19:33 08/04/24 10:25 Oxycodone/Acetaminophen (*Crx) 5-325 Mg Tablet PO 1 tablet Q4H PRN Administration Pain Rated 4-6 Potassium Citrate 10 meq 08/05/24 09:00 Potassium Citrate 5 Meq Tab Cr PO QAM [facility] Rosuvastatin Calcium 20 mg 08/05/24 09:00 Rosuvastatin 20 Mg Tablet PO DAILY [facility] Labs Labs: Laboratory Results - last 24 hr 08/03/24 08/03/24 08/03/24 19:07 20:33 23:59 WBC RBC Hgb Hct MCV MCH MCHC RDW Plt Count MPV Sodium Potassium Chloride Carbon Dioxide Anion Gap BUN Creatinine Estim Creat Clear Calc Estimated GFR Glucose POC Capillary Glucose 129 H 149 H 148 H Calcium 08/04/24 08/04/24 08/04/24 05:01 06:03 12:04 WBC 11.6 H RBC 4.59 L Hgb 12.7 L Hct 40.4 L MCV 88.0 MCH 27.7 MCHC 31.4 L RDW 15.2 H Plt Count 178 MPV 11.0 H Sodium 136 L Potassium 4.0 Chloride 109 H Carbon Dioxide 22 Anion Gap 5 BUN 24 H Creatinine 1.60 H Estim Creat Clear Calc 44 Estimated GFR 42 L Glucose 171 H POC Capillary Glucose 174 H 139 H Calcium 8.5 08/04/24 18:31 WBC RBC Hgb Hct MCV MCH MCHC RDW Plt Count MPV Sodium Potassium Chloride Carbon Dioxide Anion Gap BUN Creatinine Estim Creat Clear Calc Estimated GFR Glucose POC Capillary Glucose 130 H Calcium
[2024-08-04] MEDS: DONEPEZIL HCL 10 MG TABLET PO (20:53)
[2024-08-04 21:14] LABS: Glucose Point of Care 123 mg/dl (65-105)
[2024-08-05 00:04] LABS: Glucose Point of Care 129 mg/dl (65-105)
[2024-08-05] MEDS: LACTATED RINGERS 1,000 ML 125 ML IV CONT ×3 (02:04→20:13)
[2024-08-05 04:36] VITALS: BP 115/60; PULSE 74; RESP 18; TEMP 36.8; O2SAT 95
[2024-08-05 04:42] LABS: Glucose Point of Care 139 mg/dl (65-105)
[2024-08-05] MEDS: PIPERACILLN/TAZ 3.375GM/NS50ML 3.375 GM/50 ML BAG IVPB ×3 (05:34→17:18)
[2024-08-05 05:47] LABS: Basophils Absolute Auto 0.1 K/mm3 (0.0-0.1); Basophils Percent Auto 0.5 % (0.2-1.2); Eosinophils Absolute Auto 0.3 K/mm3 (0-0.3); Eosinophils Percent Auto 2.9 % (0-4.4); Hematocrit 35.5 % (42.0-52.0); Hemoglobin 11.6 g/dL (14.0-18.0); Immature Granulocyte Absolute 0.13 K/mm3 (0.00-0.031); Immature Granulocyte Percent A 1.1 % (0-0.5); Lymphocytes Absolute Auto 2.22 K/mm3 (0.9-3.2); Lymphocytes Percent Auto 19.1 % (18.3-44.2); Mean Corpuscular HGB Conc 32.7 g/dl (32-36); Mean Corpuscular Hemoglobin 28.4 pg (26-34); Mean Platelet Volume 10.6 fl (7.4-10.4); Monocytes Absolute Auto 0.9 K/mm3 (0.1-0.6); Monocytes Percent Auto 7.3 % (2.6-8.5); Neutrophils Percent Auto 69.1 % (45.5-73.1); Platelet Count Result 177 k/mm3 (150-375); Red Blood Count 4.08 M/mm3 (4.6-6.20); Red Cell Distribution Width 15.2 % (11.5-14.5); White Blood Count 11.6 K/mm3 (4.5-10.0)
[2024-08-05 06:05] LABS: Alanine Aminotransferase 28 U/L (6-50); Albumin Level 2.3 g/dL (3.5-5.1); Alkaline Phosphatase 84 U/L (38-126); Anion Gap 2 mmol/L (4-12); Aspartate Amino Transferase 35 U/L (17-59); Bilirubin,Total 2.8 mg/dL (0.2-1.3); Blood Urea Nitrogen 21 mg/dL (9-20); Calcium 8.6 mg/dL (8.4-10.2); Carbon Dioxide 26 mmol/L (22-30); Chloride 105 mmol/L (98-107); Estimated CRCL calculation 50 ml/min; Estimated Glomerular Filt Rate 49; Glucose 125 mg/dL (65-110); Sodium 133 mmol/L (137-145)
--- NOTE | 2024-08-05 06:37 | PM.IMPN ---
Progress Note: A&P Assessment and Plan (1) Rupture of appendix: Code(s): K35.32 - Acute appendicitis with perforation, localized peritonitis, and gangrene, without abscess Status: Inactive Assessment and Plan: - Did not meet SIRS criteria.? Lactic 1.6.? Blood cultures were obtained on 08/02, follow. - CT abdomen/pelvis: Ruptured acute appendicitis with 4.0 x 2.8 x 2.9 cm periappendiceal abscess. - IV fluids: 1L bolus -> 75 mL/hr x1L - Diet: full liquids, advance as tolerated - Started on Zosyn and Flagyl on 08/02, will continue with monotherapy with Zosyn - Analgesics and antipyretics p.r.n. - General surgery consulted, awaiting formal recs s/p laparoscopic appendectomy with drainage of intra-abdominal abscess and CAMMIE drain placement 08/05: Serosanguineous drainage in the CAMMIE drain. Pain well controlled. Patient denies flatus and BM. Bowel sounds are hypoactive. He is tolerating his full liquid diet well. (2) Acute UTI: Code(s): N39.0 - Urinary tract infection, site not specified Status: Acute Assessment and Plan: Of note, the patient was currently on Augmentin for treatment of a recent UTI which was started on 07/30 for a 10 day course. - UC obtained on 07/30: Ecoli with ESBL resistance - Most recent urine culture sensitive to Zosyn, will hold home Augmentin that he was recently prescribed for a UTI. (3) Hypertension: Qualifiers: Hypertension type: primary hypertension Qualified Code(s): I10 - Essential (primary) hypertension Code(s): I10 - Essential (primary) hypertension Status: Chronic Assessment and Plan: - chronic, blood pressures currently stable - home medications: Lasix 20 mg daily resumed - hydralazine 10 mg IVP p.r.n. for BP greater than 180/90 - monitor (4) Falls: Code(s): R29.6 - Repeated falls Status: Acute Assessment and Plan: reports he has barely been able to walk and has had 3 falls at home. He states that he became weak, falling out of his bed and chair.?They attributed the weakness to the infection. On Tuesday is when he fell out of his bed he did hit his head, but denies LOC. He is not on any anticoagulation and has no neuro deficits. No head CT required at this time. - PT/OT (5) Chronic kidney disease: Code(s): N18.9 - Chronic kidney disease, unspecified Status: Acute Assessment and Plan: BUN/Cr 29/1.66 on admission, baseline appears to be 1.2-1.6 - BUN/Cr 21/1.4 on am labs - Avoid nephrotoxic medications - Renally dose medications - Monitor (6) Prediabetes: Code(s): R73.03 - Prediabetes Status: Acute Assessment and Plan: - A1C 6.2% on 05/22/2024, prediabetic (7) ADIS (obstructive sleep apnea): Code(s): G47.33 - Obstructive sleep apnea (adult) (pediatric) Status: Chronic Assessment and Plan: - continue home CPAP Plan Diet: NPO GI Prophylaxis: Not currently indicated DVT Prophylaxis: SCDs Lines: Peripheral Code Status: Full code Time Spent With Patient Time with patient: 25 - 35 minutes Subjective Date/time seen: 08/05/24 06:37 Interval history: 79 year old male with PMH of dementia, ADIS, COPD, diabetes, HLD, hypertension, depression, and obesity presents to the hospital with abdominal tenderness. Patient is pleasant lying comfortably in bed. He has not passed flatus or had a BM since surgery. He denies any abdominal pain or nausea/vomiting. Tolerating his current full liquid diet. He has no other complaints denying chest pain, shortness of breath, and palpitations. Review of Systems Review of Systems: All systems reviewed & are unremarkable except as noted in HPI and below Exam Narrative: AF HR 74 RR 18 SPO2 95 BP 115/60 General: male in no acute respiratory distress who is nontoxic appearing, lying semi recumbent in bed. HEENT: Normocephalic. Atraumatic. Extraocular movement intact. Sclera clear and anicteric. No facial asymmetry. Chest: Lungs are clear to auscultation bilaterally. No wheezes or crackles. CV: Heart was regular rate and rhythm. S1/S2. No murmurs, gallops, or rubs. Abd: Abdomen was soft. slight tenderness in relation to the incision sites which are clean, dry and intact without noted drainage. CAMMIE drain in place with serosanguineous drainage. Nondistended. Hypoactive bowel sounds. No organomegaly or masses. Ext: No clubbing, cyanosis, or edema. 2+ DP pulses bilaterally. Neuro: Speech is clear. Objective Data Vital Signs Vital Signs: Vital Signs - 24 hr 08/04/24 08:00 08/04/24 08:59 08/04/24 09:18 Temperature 97.4 F L Pulse Rate 63 Respiratory Rate 18 Blood Pressure 123/62 Pulse Oximetry 94 98 Oxygen Delivery Room Air Room Air 08/04/24 13:18 08/04/24 14:00 08/04/24 17:18 Temperature 97.4 F L 97.4 F L 97.4 F L Pulse Rate 63 63 63 Respiratory Rate 18 18 18 Blood Pressure 123/62 123/62 123/62 Pulse Oximetry 98 98 98 Oxygen Delivery 08/04/24 19:58 08/04/24 20:53 08/05/24 04:36 Temperature 98.9 F 98.3 F Pulse Rate 80 74 Respiratory Rate 12 18 Blood Pressure 121/61 115/60 Pulse Oximetry 100 95 Oxygen Delivery Room Air Intake/Output Intake/Output: Intake & Output 08/02/24 08/03/24 08/04/24 08/05/24 23:59 23:59 23:59 23:59 Intake Total 50 250 2730 1191.7 Output Total 470 1080 479 Balance 50 -220 1650 712.7 Meds/Results Medications: Active Medications Generic Name Dose Route Start Last Admin Trade Name Freq PRN Reason Stop Dose Admin Acetaminophen 500 mg 08/03/24 19:33 Acetaminophen 500 Mg Tablet PO Q6H PRN Pain Rated 1-3 Citalopram Hydrobromide 10 mg 08/05/24 09:00 Citalopram Hydrobromide 10 Mg Tablet PO DAILY NEISHA Dextrose 12.5 gm 08/02/24 20:56 Dextrose 50% 25 Gm/50 Ml Syringe IV PUSH PRN PRN Hypoglycemia Protocol Donepezil HCl 10 mg 08/04/24 21:00 08/04/24 20:53 Donepezil Hcl 10 Mg Tablet PO 10 mg QHS NEISHA Administration Enoxaparin Sodium 40 mg 08/04/24 09:00 08/04/24 10:20 Enoxaparin 40 Mg/0.4 Ml Syringe SUB-Q 40 mg DAILY NEISHA Administration Fentanyl Citrate 12.5 mcg 08/03/24 19:33 Fentanyl Citrate Inj (*Crx) 100 Mcg/2 Ml Vial IV PUSH Q2H PRN Breakthrough Pain Rated 4-6 or NPO Fentanyl Citrate 25 mcg 08/03/24 19:33 08/04/24 00:05 Fentanyl Citrate Inj (*Crx) 100 Mcg/2 Ml Vial IV PUSH 25 mcg Q2H PRN Administration Breakthrough Pain Rated 7-10 or NPO Glucagon 1 mg 08/02/24 20:56 Glucagon For Inj 1 Mg Vial IM PRN PRN Hypoglycemia Protocol Glucose 15 gm 08/02/24 20:56 Glucose Oral Gel 15 Gm Of Glucse In 37.5 Gm Tube PO PRN PRN Hypoglycemia Protocol Hydralazine HCl 10 mg 08/02/24 21:01 Hydralazine Hcl 20 Mg/Ml Vial IV PUSH Q8H PRN BP greater than 180/90 Dextrose 1,000 mls @ 100 mls/hr 08/02/24 20:56 Dextrose 5% 1,000 Ml IVPB PRN PRN Hypoglycemia Protocol Piperacillin/Tazobactam/Dextrose 3.375 gm in 50 mls @ 100 mls/hr 08/02/24 23:00 08/05/24 06:04 Zosyn 3.375 Gm/Ns 50 Ml IVPB Infused Q6HR NEISHA Infusion Lactated Ringer's 1,000 mls @ 125 mls/hr 08/03/24 19:33 08/05/24 02:04 Lr - Lactated Ringers Iv IV CONT 125 mls/hr .Q8H NEISHA Administration Ibuprofen 800 mg in 200 mls @ 400 mls/hr 08/03/24 19:33 Caldolor 800 Mg/200 Ml IVPB Q6H PRN Breakthrough Pain Rated 1-3 or NPO Loratadine 10 mg 08/05/24 09:00 Loratadine 10 Mg Tablet PO DAILY NEISHA Magnesium Oxide 400 mg 08/04/24 17:00 08/04/24 17:10 Magnesium Oxide 400 Mg Tablet PO 400 mg BID NEISHA Administration Memantine 10 mg 08/04/24 11:50 08/04/24 20:53 Memantine 10 Mg Tablet PO 10 mg Q12HR NEISHA Administration Naloxone HCl 0.1 mg 08/03/24 19:33 Naloxone Hcl 0.4 Mg/Ml Vial IV PUSH Q2M PRN Opiate Reversal Oxycodone/Acetaminophen 1 tablet 08/03/24 19:33 08/04/24 10:25 Oxycodone/Acetaminophen (*Crx) 5-325 Mg Tablet PO 1 tablet Q4H PRN Administration Pain Rated 4-6 Potassium Citrate 10 meq 08/05/24 09:00 Potassium Citrate 5 Meq Tab Cr PO QAM [facility] Rosuvastatin Calcium 20 mg 08/05/24 09:00 Rosuvastatin 20 Mg Tablet PO DAILY [facility] Labs Labs: Laboratory Results - last 24 hr 08/04/24 08/04/24 08/04/24 12:04 18:31 20:21 WBC RBC Hgb Hct MCV MCH MCHC RDW Plt Count MPV Immature Gran % (Auto) Neut % (Auto) Lymph % (Auto) [place] % (Auto) Eos % (Auto) Baso % (Auto) Lymph # (Auto) [place] # (Auto) Eos # (Auto) Baso # (Auto) Abs Immat Gran (auto) Absolute Neuts (auto) Absolute Nucleated RBC Nucleated RBC % Sodium Potassium Chloride Carbon Dioxide Anion Gap BUN Creatinine Estim Creat Clear Calc Estimated GFR Glucose POC Capillary Glucose 139 H 130 H 123 H Calcium Total Bilirubin AST ALT Alkaline Phosphatase Total Protein Albumin 08/04/24 08/05/24 08/05/24 23:50 04:36 05:24 WBC 11.6 H RBC 4.08 L Hgb 11.6 L Hct 35.5 L MCV 87.0 MCH 28.4 MCHC 32.7 RDW 15.2 H Plt Count 177 MPV 10.6 H Immature Gran % (Auto) 1.1 H Neut % (Auto) 69.1 Lymph % (Auto) 19.1 [place] % (Auto) 7.3 Eos % (Auto) 2.9 Baso % (Auto) 0.5 Lymph # (Auto) 2.22 [place] # (Auto) 0.9 H Eos # (Auto) 0.3 Baso # (Auto) 0.1 Abs Immat Gran (auto) 0.13 H Absolute Neuts (auto) 8.0 H Absolute Nucleated RBC 0.000 Nucleated RBC % 0.0 Sodium 133 L Potassium 4.0 Chloride 105 Carbon Dioxide 26 Anion Gap 2 L BUN 21 H Creatinine 1.40 H Estim Creat Clear Calc 50 Estimated GFR 49 L Glucose 125 H POC Capillary Glucose 129 H 139 H Calcium 8.6 Total Bilirubin 2.8 H AST 35 ALT 28 Alkaline Phosphatase 84 Total Protein 5.0 L Albumin 2.3 L Quality VTE Prophylaxis VTE prophylaxis: mechanical ordered
[2024-08-05 07:59] VITALS: O2SAT 94
[2024-08-05] MEDS: POTASSIUM CITRATE 5 MEQ TAB CR 10 MEQ PO (08:45)
[2024-08-05] MEDS: FUROSEMIDE 20 MG TABLET PO (08:46)
[2024-08-05] MEDS: MAGNESIUM OXIDE 400 MG TABLET PO ×2 (08:46→17:17)
[2024-08-05] MEDS: MEMANTINE 10 MG TABLET PO ×2 (08:46→20:13)
[2024-08-05] MEDS: CITALOPRAM HYDROBROMIDE 10 MG TABLET PO (08:46)
[2024-08-05] MEDS: ROSUVASTATIN 20 MG TABLET PO (08:46)
[2024-08-05] MEDS: LORATADINE 10 MG TABLET PO (08:46)
[2024-08-05] MEDS: ENOXAPARIN 40 MG/0.4 ML SYRINGE SUB-Q (08:47)
[2024-08-05 12:06] LABS: Glucose Point of Care 143 mg/dl (65-105)
--- NOTE | 2024-08-05 12:27 | WPDPN ---
Progress Note: A&P Assessment and Plan (1) Acute appendicitis with generalized peritonitis and abscess: Qualifiers: Appendicitis gangrene presence: with gangrene Appendicitis perforation presence: with perforation Qualified Code(s): K35.211 - Acute appendicitis with generalized peritonitis, with perforation and abscess Code(s): K35.219 - Acute appendicitis with generalized peritonitis, with abscess, unspecified as to perforation Status: Acute Assessment and Plan: Continuing to improve after laparoscopic appendectomy and drainage of abscess. Continue abdominal drain for now. Continue IV antibiotics through today. Repeat white blood cell count tomorrow. Go ahead advance diet to low residual solid food. Subjective Date/time seen: 08/05/24 12:27 Interval history: Patient feels better today. Less abdominal pain. No nausea or vomiting. Sitting up in chair and eating his clear liquid diet. Did have a small amount of diarrhea . White blood count is stable at 11,600. No fever. Exam GI: Other: After is soft and minimally distended. Port site incisions are healing well. CAMMIE drain has decreased volume and decreased bloody content. It is more serous appearing now. No feculent material in the drain output. Objective Data Vital Signs Vital Signs: Vital Signs - 24 hr 08/04/24 13:18 08/04/24 14:00 08/04/24 17:18 Temperature 36.3 C L 36.3 C L 36.3 C L Pulse Rate 63 63 63 Respiratory Rate 18 18 18 Blood Pressure 123/62 123/62 123/62 Pulse Oximetry 98 98 98 Oxygen Delivery Fraction of Inspired Oxygen 08/04/24 19:58 08/04/24 20:53 08/05/24 04:36 Temperature 37.2 C 36.8 C Pulse Rate 80 74 Respiratory Rate 12 18 Blood Pressure 121/61 115/60 Pulse Oximetry 100 95 Oxygen Delivery Room Air Fraction of Inspired Oxygen 08/05/24 07:59 08/05/24 08:40 Temperature Pulse Rate Respiratory Rate Blood Pressure Pulse Oximetry 94 Oxygen Delivery Room Air Room Air Fraction of Inspired Oxygen 21 Intake/Output Intake/Output: Intake & Output 08/02/24 08/03/24 08/04/24 08/05/24 23:59 23:59 23:59 23:59 Intake Total 50 104 8200 2449.2 Output Total 470 7505 479 Balance 50 -220 1650 1970.2 Meds/Results Medications: Active Medications Generic Name Dose Route Start Last Admin Trade Name Freq PRN Reason Stop Dose Admin Acetaminophen 500 mg 08/03/24 19:33 Acetaminophen 500 Mg Tablet PO Q6H PRN Pain Rated 1-3 Citalopram Hydrobromide 10 mg 08/05/24 09:00 08/05/24 08:46 Citalopram Hydrobromide 10 Mg Tablet PO 10 mg DAILY NEISHA Administration Dextrose 12.5 gm 08/02/24 20:56 Dextrose 50% 25 Gm/50 Ml Syringe IV PUSH PRN PRN Hypoglycemia Protocol Donepezil HCl 10 mg 08/04/24 21:00 08/04/24 20:53 Donepezil Hcl 10 Mg Tablet PO 10 mg QHS NEISHA Administration Enoxaparin Sodium 40 mg 08/04/24 09:00 08/05/24 08:47 Enoxaparin 40 Mg/0.4 Ml Syringe SUB-Q 40 mg DAILY NEISHA Administration Fentanyl Citrate 12.5 mcg 08/03/24 19:33 Fentanyl Citrate Inj (*Crx) 100 Mcg/2 Ml Vial IV PUSH Q2H PRN Breakthrough Pain Rated 4-6 or NPO Fentanyl Citrate 25 mcg 08/03/24 19:33 08/04/24 00:05 Fentanyl Citrate Inj (*Crx) 100 Mcg/2 Ml Vial IV PUSH 25 mcg Q2H PRN Administration Breakthrough Pain Rated 7-10 or NPO Furosemide 20 mg 08/05/24 09:00 08/05/24 08:46 Furosemide 20 Mg Tablet PO 20 mg DAILY NEISHA Administration Glucagon 1 mg 08/02/24 20:56 Glucagon For Inj 1 Mg Vial IM PRN PRN Hypoglycemia Protocol Glucose 15 gm 08/02/24 20:56 Glucose Oral Gel 15 Gm Of Glucse In 37.5 Gm Tube PO PRN PRN Hypoglycemia Protocol Hydralazine HCl 10 mg 08/02/24 21:01 Hydralazine Hcl 20 Mg/Ml Vial IV PUSH Q8H PRN BP greater than 180/90 Dextrose 1,000 mls @ 100 mls/hr 08/02/24 20:56 Dextrose 5% 1,000 Ml IVPB PRN PRN Hypoglycemia Protocol Piperacillin/Tazobactam/Dextrose 3.375 gm in 50 mls @ 100 mls/hr 08/02/24 23:00 08/05/24 12:07 Zosyn 3.375 Gm/Ns 50 Ml IVPB 100 mls/hr Q6HR NEISHA Administration Lactated Ringer's 1,000 mls @ 125 mls/hr 08/03/24 19:33 08/05/24 12:07 Lr - Lactated Ringers Iv IV CONT 0 mls/hr .Q8H NEISHA Infusion Ibuprofen 800 mg in 200 mls @ 400 mls/hr 08/03/24 19:33 Caldolor 800 Mg/200 Ml IVPB Q6H PRN Breakthrough Pain Rated 1-3 or NPO Loratadine 10 mg 08/05/24 09:00 08/05/24 08:46 Loratadine 10 Mg Tablet PO 10 mg DAILY NEISHA Administration Magnesium Oxide 400 mg 08/04/24 17:00 08/05/24 08:46 Magnesium Oxide 400 Mg Tablet PO 400 mg BID NEISHA Administration Memantine 10 mg 08/04/24 11:50 08/05/24 08:46 Memantine 10 Mg Tablet PO 10 mg Q12HR NEISHA Administration Naloxone HCl 0.1 mg 08/03/24 19:33 Naloxone Hcl 0.4 Mg/Ml Vial IV PUSH Q2M PRN Opiate Reversal Oxycodone/Acetaminophen 1 tablet 08/03/24 19:33 08/04/24 10:25 Oxycodone/Acetaminophen (*Crx) 5-325 Mg Tablet PO 1 tablet Q4H PRN Administration Pain Rated 4-6 Potassium Citrate 10 meq 08/05/24 09:00 08/05/24 08:45 Potassium Citrate 5 Meq Tab Cr PO 10 meq QAM NEISHA Administration Rosuvastatin Calcium 20 mg 08/05/24 09:00 08/05/24 08:46 Rosuvastatin 20 Mg Tablet PO 20 mg DAILY NEISHA Administration Labs Labs: Laboratory Results - last 24 hr 08/04/24 08/04/24 08/04/24 12:04 18:31 20:21 WBC RBC Hgb Hct MCV MCH MCHC RDW Plt Count MPV Immature Gran % (Auto) Neut % (Auto) Lymph % (Auto) [place] % (Auto) Eos % (Auto) Baso % (Auto) Lymph # (Auto) [place] # (Auto) Eos # (Auto) Baso # (Auto) Abs Immat Gran (auto) Absolute Neuts (auto) Absolute Nucleated RBC Nucleated RBC % Sodium Potassium Chloride Carbon Dioxide Anion Gap BUN Creatinine Estim Creat Clear Calc Estimated GFR Glucose POC Capillary Glucose 139 H 130 H 123 H Calcium Total Bilirubin AST ALT Alkaline Phosphatase Total Protein Albumin 08/04/24 08/05/24 08/05/24 23:50 04:36 05:24 WBC 11.6 H RBC 4.08 L Hgb 11.6 L Hct 35.5 L MCV 87.0 MCH 28.4 MCHC 32.7 RDW 15.2 H Plt Count 177 MPV 10.6 H Immature Gran % (Auto) 1.1 H Neut % (Auto) 69.1 Lymph % (Auto) 19.1 [place] % (Auto) 7.3 Eos % (Auto) 2.9 Baso % (Auto) 0.5 Lymph # (Auto) 2.22 [place] # (Auto) 0.9 H Eos # (Auto) 0.3 Baso # (Auto) 0.1 Abs Immat Gran (auto) 0.13 H Absolute Neuts (auto) 8.0 H Absolute Nucleated RBC 0.000 Nucleated RBC % 0.0 Sodium 133 L Potassium 4.0 Chloride 105 Carbon Dioxide 26 Anion Gap 2 L BUN 21 H Creatinine 1.40 H Estim Creat Clear Calc 50 Estimated GFR 49 L Glucose 125 H POC Capillary Glucose 129 H 139 H Calcium 8.6 Total Bilirubin 2.8 H AST 35 ALT 28 Alkaline Phosphatase 84 Total Protein 5.0 L Albumin 2.3 L 08/05/24 11:56 WBC RBC Hgb Hct MCV MCH MCHC RDW Plt Count MPV Immature Gran % (Auto) Neut % (Auto) Lymph % (Auto) [place] % (Auto) Eos % (Auto) Baso % (Auto) Lymph # (Auto) [place] # (Auto) Eos # (Auto) Baso # (Auto) Abs Immat Gran (auto) Absolute Neuts (auto) Absolute Nucleated RBC Nucleated RBC % Sodium Potassium Chloride Carbon Dioxide Anion Gap BUN Creatinine Estim Creat Clear Calc Estimated GFR Glucose POC Capillary Glucose 143 H Calcium Total Bilirubin AST ALT Alkaline Phosphatase Total Protein Albumin
[2024-08-05] MEDS: oxyCODONE/ACETAMINOPHEN (*CRX) 5-325 MG TABLET 1 TABLET PO (12:45)
[2024-08-05 15:03] VITALS: BP 115/54; PULSE 70; RESP 18; TEMP 36.7; O2SAT 95
[2024-08-05 18:08] LABS: Glucose Point of Care 116 mg/dl (65-105)
[2024-08-05 20:00] VITALS: PULSE 67; RESP 16; O2SAT 96
[2024-08-05] MEDS: DONEPEZIL HCL 10 MG TABLET PO (20:13)
[2024-08-05 21:14] VITALS: BP 124/54; PULSE 67; RESP 16; TEMP 36.5; O2SAT 96
[2024-08-06] MEDS: PIPERACILLN/TAZ 3.375GM/NS50ML 3.375 GM/50 ML BAG IVPB ×3 (01:00→12:18)
[2024-08-06 01:25] LABS: Glucose Point of Care 151 mg/dl (65-105)
[2024-08-06 05:05] VITALS: BP 111/57; PULSE 61; RESP 14; TEMP 37; O2SAT 96
[2024-08-06] MEDS: LACTATED RINGERS 1,000 ML 125 ML IV CONT (05:17)
[2024-08-06 05:36] LABS: Glucose Point of Care 126 mg/dl (65-105)
--- NOTE | 2024-08-06 08:22 | P.PNIM_ITS ---
Progress Note: A&P Assessment and Plan (1) Rupture of appendix: Code(s): K35.32 - Acute appendicitis with perforation, localized peritonitis, and gangrene, without abscess Status: Inactive Assessment and Plan: - Did not meet SIRS criteria.? Lactic 1.6.? Blood cultures were obtained on 08/02, follow. - CT abdomen/pelvis: Ruptured acute appendicitis with 4.0 x 2.8 x 2.9 cm periappendiceal abscess. - IV fluids: 1L bolus -> 75 mL/hr x1L - Diet: full liquids, advance as tolerated - Started on Zosyn and Flagyl on 08/02, will continue with monotherapy with Zosyn - Analgesics and antipyretics p.r.n. - General surgery consulted, awaiting formal recs s/p laparoscopic appendectomy with drainage of intra-abdominal abscess and CAMMIE drain placement 08/06: Pain well controlled. Passing flatus, no BM. Surgery plans to likely remove CAMMIE drain tomorrow. (2) Acute UTI: Code(s): N39.0 - Urinary tract infection, site not specified Status: Acute Assessment and Plan: Of note, the patient was currently on Augmentin for treatment of a recent UTI which was started on 07/30 for a 10 day course. - UC obtained on 07/30: Ecoli with ESBL resistance - Most recent urine culture sensitive to Zosyn, will hold home Augmentin that he was recently prescribed for a UTI. (3) Hypertension: Qualifiers: Hypertension type: primary hypertension Qualified Code(s): I10 - Essential (primary) hypertension Code(s): I10 - Essential (primary) hypertension Status: Chronic Assessment and Plan: - chronic, blood pressures currently stable - home medications: Lasix 20 mg daily resumed - hydralazine 10 mg IVP p.r.n. for BP greater than 180/90 - monitor (4) Falls: Code(s): R29.6 - Repeated falls Status: Acute Assessment and Plan: reports he has barely been able to walk and has had 3 falls at home. He states that he became weak, falling out of his bed and chair.?They attributed the weakness to the infection. On Tuesday is when he fell out of his bed he did hit his head, but denies LOC. He is not on any anticoagulation and has no neuro deficits. No head CT required at this time. - PT/OT Plan is to transfer to swing bed in [place] for PT and OT (5) Chronic kidney disease: Code(s): N18.9 - Chronic kidney disease, unspecified Status: Acute Assessment and Plan: BUN/Cr 29/1.66 on admission, baseline appears to be 1.2-1.6 - BUN/Cr on am labs - Avoid nephrotoxic medications - Renally dose medications - Monitor (6) Prediabetes: Code(s): R73.03 - Prediabetes Status: Acute Assessment and Plan: - A1C 6.2% on 05/22/2024, prediabetic (7) ADIS (obstructive sleep apnea): Code(s): G47.33 - Obstructive sleep apnea (adult) (pediatric) Status: Chronic Assessment and Plan: - continue home CPAP Plan Diet: NPO GI Prophylaxis: Not currently indicated DVT Prophylaxis: SCDs Lines: Peripheral Code Status: Full code Subjective Date/time seen: 08/06/24 08:22 Interval history: 79 year old male with PMH of dementia, ADIS, COPD, diabetes, HLD, hypertension, depression, and obesity presents to the hospital with abdominal tenderness. Patient is pleasant lying in bed. He is passing flatus but has not had a bowel movement yet. He is tolerating his diet well. Has slight abdominal pain with movement, but states that pain is well controlled on current regimen. He has no other complaints denying chest pain, shortness of breath, nausea/vomiting. Per surgery plan for removal of CAMMIE drain tomorrow. Review of Systems Review of Systems: All systems reviewed & are unremarkable except as noted in HPI and below Exam Narrative: AF HR 65 RR 16 SpO2 100 BP 130/60 General: male in no acute respiratory distress who is nontoxic appearing, lying semi recumbent in bed. HEENT: Normocephalic. Atraumatic. Extraocular movement intact. Sclera clear and anicteric. No facial asymmetry. Chest: Lungs are clear to auscultation bilaterally. No wheezes or crackles. CV: Heart was regular rate and rhythm. S1/S2. No murmurs, gallops, or rubs. Abd: Abdomen was soft. slight tenderness in relation to the incision sites which are clean, dry and intact without noted drainage. CAMMIE drain in place with serosanguineous drainage. Nondistended. Normal bowel sounds. No organomegaly or masses. Ext: No clubbing, cyanosis, or edema. 2+ DP pulses bilaterally. Neuro: Speech is clear. Objective Data Vital Signs Vital Signs: Vital Signs - 24 hr 08/05/24 08:40 08/05/24 11:03 08/05/24 13:44 Temperature Pulse Rate Respiratory Rate Blood Pressure Pulse Oximetry Oxygen Delivery Room Air Room Air Room Air Fraction of Inspired Oxygen 08/05/24 15:03 08/05/24 20:00 08/05/24 21:14 Temperature 98.1 F 97.7 F Pulse Rate 70 67 67 Respiratory Rate 18 16 16 Blood Pressure 115/54 L 124/54 L Pulse Oximetry 95 96 96 Oxygen Delivery Room Air Fraction of Inspired Oxygen 21 08/06/24 05:05 Temperature 98.6 F Pulse Rate 61 Respiratory Rate 14 Blood Pressure 111/57 L Pulse Oximetry 96 Oxygen Delivery Fraction of Inspired Oxygen Intake/Output Intake/Output: Intake & Output 08/03/24 08/04/24 08/05/24 08/06/24 23:59 23:59 23:59 23:59 Intake Total 250 2730 4029.6 1450 Output Total 470 1080 1294 Balance -220 1650 2735.6 1450 Meds/Results Medications: Active Medications Generic Name Dose Route Start Last Admin Trade Name Freq PRN Reason Stop Dose Admin Acetaminophen 500 mg 08/03/24 19:33 Acetaminophen 500 Mg Tablet PO Q6H PRN Pain Rated 1-3 Citalopram Hydrobromide 10 mg 08/05/24 09:00 08/05/24 08:46 Citalopram Hydrobromide 10 Mg Tablet PO 10 mg DAILY NEISHA Administration Dextrose 12.5 gm 08/02/24 20:56 Dextrose 50% 25 Gm/50 Ml Syringe IV PUSH PRN PRN Hypoglycemia Protocol Donepezil HCl 10 mg 08/04/24 21:00 08/05/24 20:13 Donepezil Hcl 10 Mg Tablet PO 10 mg QHS NEISHA Administration Enoxaparin Sodium 40 mg 08/04/24 09:00 08/05/24 08:47 Enoxaparin 40 Mg/0.4 Ml Syringe SUB-Q 40 mg DAILY NEISHA Administration Fentanyl Citrate 12.5 mcg 08/03/24 19:33 Fentanyl Citrate Inj (*Crx) 100 Mcg/2 Ml Vial IV PUSH Q2H PRN Breakthrough Pain Rated 4-6 or NPO Fentanyl Citrate 25 mcg 08/03/24 19:33 08/04/24 00:05 Fentanyl Citrate Inj (*Crx) 100 Mcg/2 Ml Vial IV PUSH 25 mcg Q2H PRN Administration Breakthrough Pain Rated 7-10 or NPO Furosemide 20 mg 08/05/24 09:00 08/05/24 08:46 Furosemide 20 Mg Tablet PO 20 mg DAILY NEISHA Administration Glucagon 1 mg 08/02/24 20:56 Glucagon For Inj 1 Mg Vial IM PRN PRN Hypoglycemia Protocol Glucose 15 gm 08/02/24 20:56 Glucose Oral Gel 15 Gm Of Glucse In 37.5 Gm Tube PO PRN PRN Hypoglycemia Protocol Hydralazine HCl 10 mg 08/02/24 21:01 Hydralazine Hcl 20 Mg/Ml Vial IV PUSH Q8H PRN BP greater than 180/90 Dextrose 1,000 mls @ 100 mls/hr 08/02/24 20:56 Dextrose 5% 1,000 Ml IVPB PRN PRN Hypoglycemia Protocol Piperacillin/Tazobactam/Dextrose 3.375 gm in 50 mls @ 100 mls/hr 08/02/24 23:00 08/06/24 05:18 Zosyn 3.375 Gm/Ns 50 Ml IVPB 100 mls/hr Q6HR NEISHA Administration Lactated Ringer's 1,000 mls @ 125 mls/hr 08/03/24 19:33 08/06/24 05:17 Lr - Lactated Ringers Iv IV CONT 125 mls/hr .Q8H NEISHA Administration Ibuprofen 800 mg in 200 mls @ 400 mls/hr 08/03/24 19:33 Caldolor 800 Mg/200 Ml IVPB Q6H PRN Breakthrough Pain Rated 1-3 or NPO Loratadine 10 mg 08/05/24 09:00 08/05/24 08:46 Loratadine 10 Mg Tablet PO 10 mg DAILY NEISHA Administration Magnesium Oxide 400 mg 08/04/24 17:00 08/05/24 17:17 Magnesium Oxide 400 Mg Tablet PO 400 mg BID NEISHA Administration Memantine 10 mg 08/04/24 11:50 08/05/24 20:13 Memantine 10 Mg Tablet PO 10 mg Q12HR NEISHA Administration Naloxone HCl 0.1 mg 08/03/24 19:33 Naloxone Hcl 0.4 Mg/Ml Vial IV PUSH Q2M PRN Opiate Reversal Oxycodone/Acetaminophen 1 tablet 08/03/24 19:33 08/05/24 12:45 Oxycodone/Acetaminophen (*Crx) 5-325 Mg Tablet PO 1 tablet Q4H PRN Administration Pain Rated 4-6 Potassium Citrate 10 meq 08/05/24 09:00 08/05/24 08:45 Potassium Citrate 5 Meq Tab Cr PO 10 meq QAM NEISHA Administration Rosuvastatin Calcium 20 mg 08/05/24 09:00 08/05/24 08:46 Rosuvastatin 20 Mg Tablet PO 20 mg DAILY NEISHA Administration Labs Labs: Laboratory Results - last 24 hr 08/05/24 08/05/24 08/06/24 11:56 18:05 00:41 POC Capillary Glucose 143 H 116 H 151 H 08/06/24 05:09 POC Capillary Glucose 126 H Quality VTE Prophylaxis VTE prophylaxis: mechanical ordered
[2024-08-06 08:28] VITALS: O2SAT 96
[2024-08-06 08:38] LABS: Basophils Percent Auto 0.4 % (0.2-1.2); Eosinophils Absolute Auto 0.3 K/mm3 (0-0.3); Eosinophils Percent Auto 3.2 % (0-4.4); Hematocrit 33.8 % (42.0-52.0); Hemoglobin 10.9 g/dL (14.0-18.0); Immature Granulocyte Absolute 0.12 K/mm3 (0.00-0.031); Immature Granulocyte Percent A 1.2 % (0-0.5); Lymphocytes Absolute Auto 1.91 K/mm3 (0.9-3.2); Lymphocytes Percent Auto 19.3 % (18.3-44.2); Mean Corpuscular HGB Conc 32.2 g/dl (32-36); Mean Corpuscular Volume 86.9 fl (80-100); Mean Platelet Volume 10.6 fl (7.4-10.4); Monocytes Absolute Auto 0.5 K/mm3 (0.1-0.6); Monocytes Percent Auto 5.5 % (2.6-8.5); Neutrophils Percent Auto 70.4 % (45.5-73.1); Platelet Count Result 202 k/mm3 (150-375); Red Blood Count 3.89 M/mm3 (4.6-6.20); Red Cell Distribution Width 15.4 % (11.5-14.5); White Blood Count 9.9 K/mm3 (4.5-10.0)
[2024-08-06 09:12] LABS: Alanine Aminotransferase 28 U/L (6-50); Albumin Level 2.4 g/dL (3.5-5.1); Alkaline Phosphatase 128 U/L (38-126); Anion Gap 4 mmol/L (4-12); Aspartate Amino Transferase 49 U/L (17-59); Bilirubin,Total 1.6 mg/dL (0.2-1.3); Blood Urea Nitrogen 16 mg/dL (9-20); Calcium 8.3 mg/dL (8.4-10.2); Carbon Dioxide 25 mmol/L (22-30); Chloride 107 mmol/L (98-107); Estimated CRCL calculation 63 ml/min; Estimated Glomerular Filt Rate > 60; Glucose 135 mg/dL (65-110); Potassium 3.1 mmol/L (3.4-5.0); Sodium 136 mmol/L (137-145)
[2024-08-06] MEDS: LORATADINE 10 MG TABLET PO (09:42)
[2024-08-06] MEDS: ROSUVASTATIN 20 MG TABLET PO (09:42)
[2024-08-06] MEDS: FUROSEMIDE 20 MG TABLET PO (09:42)
[2024-08-06] MEDS: CITALOPRAM HYDROBROMIDE 10 MG TABLET PO (09:42)
[2024-08-06] MEDS: MEMANTINE 10 MG TABLET PO ×2 (09:42→20:32)
[2024-08-06] MEDS: MAGNESIUM OXIDE 400 MG TABLET PO ×2 (09:43→17:15)
[2024-08-06] MEDS: ENOXAPARIN 40 MG/0.4 ML SYRINGE SUB-Q (09:43)
[2024-08-06] MEDS: POTASSIUM CITRATE 5 MEQ TAB CR PO (09:45)
[2024-08-06] MEDS: POTASSIUM CHLORIDE 20 MEQ ER TABLET 40 MEQ PO (09:46)
[2024-08-06 09:53] VITALS: BP 130/60; PULSE 65; RESP 16; O2SAT 100
[2024-08-06 11:52] LABS: Glucose Point of Care 122 mg/dl (65-105)
[2024-08-06 12:26] LABS: Glucose Point of Care 144 mg/dl (65-105)
--- NOTE | 2024-08-06 12:40 | PM.PNGS ---
Progress Note: A&P Assessment and Plan (1) Acute appendicitis with generalized peritonitis and abscess: Qualifiers: Appendicitis gangrene presence: with gangrene Appendicitis perforation presence: with perforation Qualified Code(s): K35.211 - Acute appendicitis with generalized peritonitis, with perforation and abscess Code(s): K35.219 - Acute appendicitis with generalized peritonitis, with abscess, unspecified as to perforation Status: Acute Assessment and Plan: Doing well. Advance to regular diet. Probably removed CAMMIE drain tomorrow. Plan is to transfer to [facility] in [place] for PT and OT. I would be okay with discharge tomorrow if can be arranged. I will need to see patient back in the office in 2 weeks. He would need to go home on IV antibiotics. Subjective Subjective Date/Time Seen: 08/06/24 12:40 Post Op day: 3 Patient reports: no new complaints, feels better, pain is less, voiding w/o difficulty, bowel movement and afebrile Exam Const: General: comfortable, no acute distress, alert and awake Orientation/consciousness: No confusion GI: Inspection: incision (Healing well, CAMMIE output serosanguineous) GI Palp: Yes Soft to palpation, Yes Tenderness to palpation present (GI) (Minimal tenderness mostly had CAMMIE site), No Guarding due to palpation present (GI) and No Rebound tenderness present Auscultation: normal bowel sounds Neuro: General: moves all extremities, no focal motor deficits and CN's II-XI intact bilaterally Cranial nerves: Yes facial symmetry and Yes Midline tongue present Extrem: General: no calf tenderness and no edema Psych: Affect: normal affect Attitude: cooperative Insight: Fair insight present (Psych) Judgement: Fair judgement present (Psych) Objective Data Vital Signs Vital Signs: Vital Signs - 24 hr 08/05/24 13:44 08/05/24 15:03 08/05/24 20:00 Temperature 36.7 C Pulse Rate 70 67 Respiratory Rate 18 16 Blood Pressure 115/54 L Pulse Oximetry 95 96 Oxygen Delivery Room Air Room Air Fraction of Inspired Oxygen 08/05/24 21:14 08/06/24 05:05 08/06/24 08:28 Temperature 36.5 C 37.0 C Pulse Rate 67 61 Respiratory Rate 16 14 Blood Pressure 124/54 L 111/57 L Pulse Oximetry 96 96 96 Oxygen Delivery Room Air Fraction of Inspired Oxygen 08/06/24 09:53 Temperature Pulse Rate 65 Respiratory Rate 16 Blood Pressure 130/60 Pulse Oximetry 100 Oxygen Delivery Fraction of Inspired Oxygen Intake/Output Intake/Output: Intake & Output 08/03/24 08/04/24 08/05/24 08/06/24 23:59 23:59 23:59 23:59 Intake Total 250 2730 4029.6 1740 Output Total 470 1080 1294 Balance -220 1650 2735.6 1740 Meds/Results Medications: Active Medications Generic Name Dose Route Start Last Admin Trade Name Freq PRN Reason Stop Dose Admin Acetaminophen 500 mg 08/03/24 19:33 Acetaminophen 500 Mg Tablet PO Q6H PRN Pain Rated 1-3 Citalopram Hydrobromide 10 mg 08/05/24 09:00 08/06/24 09:42 Citalopram Hydrobromide 10 Mg Tablet PO 10 mg DAILY NEISHA Administration Dextrose 12.5 gm 08/02/24 20:56 Dextrose 50% 25 Gm/50 Ml Syringe IV PUSH PRN PRN Hypoglycemia Protocol Donepezil HCl 10 mg 08/04/24 21:00 08/05/24 20:13 Donepezil Hcl 10 Mg Tablet PO 10 mg QHS NEISHA Administration Enoxaparin Sodium 40 mg 08/04/24 09:00 08/06/24 09:43 Enoxaparin 40 Mg/0.4 Ml Syringe SUB-Q 40 mg DAILY NEISHA Administration Fentanyl Citrate 12.5 mcg 08/03/24 19:33 Fentanyl Citrate Inj (*Crx) 100 Mcg/2 Ml Vial IV PUSH Q2H PRN Breakthrough Pain Rated 4-6 or NPO Fentanyl Citrate 25 mcg 08/03/24 19:33 08/04/24 00:05 Fentanyl Citrate Inj (*Crx) 100 Mcg/2 Ml Vial IV PUSH 25 mcg Q2H PRN Administration Breakthrough Pain Rated 7-10 or NPO Furosemide 20 mg 08/05/24 09:00 08/06/24 09:42 Furosemide 20 Mg Tablet PO 20 mg DAILY NEISHA Administration Glucagon 1 mg 08/02/24 20:56 Glucagon For Inj 1 Mg Vial IM PRN PRN Hypoglycemia Protocol Glucose 15 gm 08/02/24 20:56 Glucose Oral Gel 15 Gm Of Glucse In 37.5 Gm Tube PO PRN PRN Hypoglycemia Protocol Hydralazine HCl 10 mg 08/02/24 21:01 Hydralazine Hcl 20 Mg/Ml Vial IV PUSH Q8H PRN BP greater than 180/90 Dextrose 1,000 mls @ 100 mls/hr 08/02/24 20:56 Dextrose 5% 1,000 Ml IVPB PRN PRN Hypoglycemia Protocol Piperacillin/Tazobactam/Dextrose 3.375 gm in 50 mls @ 100 mls/hr 08/02/24 23:00 08/06/24 12:18 Zosyn 3.375 Gm/Ns 50 Ml IVPB 100 mls/hr Q6HR NEISHA Administration Lactated Ringer's 1,000 mls @ 125 mls/hr 08/03/24 19:33 08/06/24 05:17 Lr - Lactated Ringers Iv IV CONT 125 mls/hr .Q8H NEISHA Administration Ibuprofen 800 mg in 200 mls @ 400 mls/hr 08/03/24 19:33 Caldolor 800 Mg/200 Ml IVPB Q6H PRN Breakthrough Pain Rated 1-3 or NPO Loratadine 10 mg 08/05/24 09:00 08/06/24 09:42 Loratadine 10 Mg Tablet PO 10 mg DAILY NEISHA Administration Magnesium Oxide 400 mg 08/04/24 17:00 08/06/24 09:43 Magnesium Oxide 400 Mg Tablet PO 400 mg BID NEISHA Administration Memantine 10 mg 08/04/24 11:50 08/06/24 09:42 Memantine 10 Mg Tablet PO 10 mg Q12HR NEISHA Administration Naloxone HCl 0.1 mg 08/03/24 19:33 Naloxone Hcl 0.4 Mg/Ml Vial IV PUSH Q2M PRN Opiate Reversal Oxycodone/Acetaminophen 1 tablet 08/03/24 19:33 08/05/24 12:45 Oxycodone/Acetaminophen (*Crx) 5-325 Mg Tablet PO 1 tablet Q4H PRN Administration Pain Rated 4-6 Potassium Citrate 10 meq 08/05/24 09:00 08/06/24 10:51 Potassium Citrate 5 Meq Tab Cr PO Not Given QAM [facility] Rosuvastatin Calcium 20 mg 08/05/24 09:00 08/06/24 09:42 Rosuvastatin 20 Mg Tablet PO 20 mg DAILY NEISHA Administration Labs Labs: Laboratory Results - last 24 hr 08/02/24 08/05/24 08/06/24 21:40 18:05 00:41 WBC RBC Hgb Hct MCV MCH MCHC RDW Plt Count MPV Immature Gran % (Auto) Neut % (Auto) Lymph % (Auto) [place] % (Auto) Eos % (Auto) Baso % (Auto) Lymph # (Auto) [place] # (Auto) Eos # (Auto) Baso # (Auto) Abs Immat Gran (auto) Absolute Neuts (auto) Absolute Nucleated RBC Nucleated RBC % Sodium Potassium Chloride Carbon Dioxide Anion Gap BUN Creatinine Estim Creat Clear Calc Estimated GFR Glucose POC Capillary Glucose 122 H 116 H 151 H Calcium Total Bilirubin AST ALT Alkaline Phosphatase Total Protein Albumin 08/06/24 08/06/24 08/06/24 05:09 08:20 11:53 WBC 9.9 RBC 3.89 L Hgb 10.9 L Hct 33.8 L MCV 86.9 MCH 28.0 MCHC 32.2 RDW 15.4 H Plt Count 202 MPV 10.6 H Immature Gran % (Auto) 1.2 H Neut % (Auto) 70.4 Lymph % (Auto) 19.3 [place] % (Auto) 5.5 Eos % (Auto) 3.2 Baso % (Auto) 0.4 Lymph # (Auto) 1.91 [place] # (Auto) 0.5 Eos # (Auto) 0.3 Baso # (Auto) 0.0 Abs Immat Gran (auto) 0.12 H Absolute Neuts (auto) 7.0 H Absolute Nucleated RBC 0.000 Nucleated RBC % 0.0 Sodium 136 L Potassium 3.1 L Chloride 107 Carbon Dioxide 25 Anion Gap 4 BUN 16 Creatinine 1.10 Estim Creat Clear Calc 63 Estimated GFR > 60 Glucose 135 H POC Capillary Glucose 126 H 144 H Calcium 8.3 L Total Bilirubin 1.6 H AST 49 ALT 28 Alkaline Phosphatase 128 H Total Protein 5.0 L Albumin 2.4 L
[2024-08-06 14:49] VITALS: BP 135/68; PULSE 64; RESP 17; TEMP 36.7; O2SAT 97
[2024-08-06] MEDS: oxyCODONE/ACETAMINOPHEN (*CRX) 5-325 MG TABLET 1 TABLET PO (15:45)
[2024-08-06 18:35] LABS: Glucose Point of Care 166 mg/dl (65-105)
[2024-08-06 20:00] VITALS: PULSE 64; RESP 16; O2SAT 99
[2024-08-06] MEDS: AMOXICILLIN/CLAVULANATE K 875-125 MG TAB 1 TABLET PO (20:32)
[2024-08-06] MEDS: SULFAMETHOXAZOLE/TRIMETHOPRIM 800/160 MG DS TABLET 1 TAB PO (20:32)
[2024-08-06] MEDS: DONEPEZIL HCL 10 MG TABLET PO (20:32)
[2024-08-06 20:37] VITALS: BP 146/69; PULSE 64; RESP 16; TEMP 36.6; O2SAT 99
[2024-08-07 00:31] LABS: Glucose Point of Care 124 mg/dl (65-105)
[2024-08-07 05:23] LABS: Basophils Absolute Auto 0.1 K/mm3 (0.0-0.1); Eosinophils Absolute Auto 0.3 K/mm3 (0-0.3); Eosinophils Percent Auto 3.8 % (0-4.4); Hematocrit 35.3 % (42.0-52.0); Hemoglobin 11.1 g/dL (14.0-18.0); Immature Granulocyte Absolute 0.16 K/mm3 (0.00-0.031); Immature Granulocyte Percent A 1.8 % (0-0.5); Lymphocytes Percent Auto 24.6 % (18.3-44.2); Mean Corpuscular HGB Conc 31.4 g/dl (32-36); Mean Corpuscular Hemoglobin 27.8 pg (26-34); Mean Corpuscular Volume 88.5 fl (80-100); Mean Platelet Volume 10.5 fl (7.4-10.4); Monocytes Absolute Auto 0.6 K/mm3 (0.1-0.6); Monocytes Percent Auto 6.7 % (2.6-8.5); Neutrophils Absolute Auto 5.6 K/mm3 (1.3-6.7); Neutrophils Percent Auto 62.1 % (45.5-73.1); Platelet Count Result 224 k/mm3 (150-375); Red Blood Count 3.99 M/mm3 (4.6-6.20); Red Cell Distribution Width 15.4 % (11.5-14.5)
[2024-08-07 05:38] LABS: Alanine Aminotransferase 36 U/L (6-50); Albumin Level 2.5 g/dL (3.5-5.1); Alkaline Phosphatase 177 U/L (38-126); Anion Gap 5 mmol/L (4-12); Aspartate Amino Transferase 65 U/L (17-59); Bilirubin,Total 1.1 mg/dL (0.2-1.3); Blood Urea Nitrogen 14 mg/dL (9-20); Calcium 8.5 mg/dL (8.4-10.2); Carbon Dioxide 27 mmol/L (22-30); Chloride 107 mmol/L (98-107); Estimated CRCL calculation 63 ml/min; Estimated Glomerular Filt Rate > 60; Glucose 111 mg/dL (65-110); Potassium 3.1 mmol/L (3.4-5.0); Sodium 139 mmol/L (137-145)
[2024-08-07 06:00] VITALS: BP 155/76; PULSE 66; RESP 16; TEMP 36.4; O2SAT 100
[2024-08-07 06:59] LABS: Glucose Point of Care 125 mg/dl (65-105)
[2024-08-07] MEDS: SULFAMETHOXAZOLE/TRIMETHOPRIM 800/160 MG DS TABLET 1 TAB PO (08:51)
[2024-08-07] MEDS: AMOXICILLIN/CLAVULANATE K 875-125 MG TAB 1 TABLET PO (08:51)
[2024-08-07] MEDS: POTASSIUM CITRATE 5 MEQ TAB CR 10 MEQ PO (08:51)
[2024-08-07] MEDS: MEMANTINE 10 MG TABLET PO (08:51)
[2024-08-07] MEDS: CITALOPRAM HYDROBROMIDE 10 MG TABLET PO (08:51)
[2024-08-07] MEDS: MAGNESIUM OXIDE 400 MG TABLET PO (08:51)
[2024-08-07] MEDS: FUROSEMIDE 20 MG TABLET PO (08:51)
[2024-08-07] MEDS: ROSUVASTATIN 20 MG TABLET PO (08:51)
[2024-08-07] MEDS: LORATADINE 10 MG TABLET PO (08:51)
[2024-08-07] MEDS: oxyCODONE/ACETAMINOPHEN (*CRX) 5-325 MG TABLET 1 TABLET PO (08:51)
[2024-08-07] MEDS: polyethylene glycoL 3350 17 GM POWD.PACK PO (09:02)
[2024-08-07] MEDS: ENOXAPARIN 40 MG/0.4 ML SYRINGE SUB-Q (09:02)
--- NOTE | 2024-08-07 09:39 | P.PNGS_ITS ---
Progress Note: A&P Assessment and Plan (1) Acute appendicitis with generalized peritonitis and abscess: Qualifiers: Appendicitis gangrene presence: with gangrene Appendicitis perforation presence: with perforation Qualified Code(s): K35.211 - Acute appendicitis with generalized peritonitis, with perforation and abscess Code(s): K35.219 - Acute appendicitis with generalized peritonitis, with abscess, unspecified as to perforation Status: Acute Assessment and Plan: Doing very well. Agree with the need for [facility] with swing bed in [place]. Okay to discharge if bed available today. He is on a regular diet. He is comfortable on oral pain medicine. Most of his discomfort is associated with the CAMMIE drain which will be removed today. Continue Augmentin alone for 3 more days. Seven days of antibiotics is plenty for the appendicitis as well as his possible UTI. I will see him in follow-up in 2 weeks. Subjective Subjective Date/Time Seen: 08/07/24 09:39 Patient reports: no new complaints, pain is less, tolerating a regular diet, voiding w/o difficulty, bowel movement and afebrile Exam Const: General: comfortable, no acute distress, alert and awake GI: Inspection: non-distended, incision (Dry and healing, CAMMIE serous) and obesity GI Palp: Yes Soft to palpation, Yes Tenderness to palpation present (GI) (Mostly at CAMMIE drain site), No Guarding due to palpation present (GI) and No Rebound tenderness present Auscultation: normal bowel sounds Neuro: General: no focal motor deficits Extrem: General: no calf tenderness and no edema Psych: Affect: normal affect Objective Data Vital Signs Vital Signs: Vital Signs - 24 hr 08/06/24 09:45 08/06/24 09:53 08/06/24 14:49 Temperature 36.7 C Pulse Rate 65 64 Respiratory Rate 16 17 Blood Pressure 130/60 135/68 Pulse Oximetry 100 97 Oxygen Delivery Room Air Fraction of Inspired Oxygen 08/06/24 20:00 08/06/24 20:37 08/07/24 06:00 Temperature 36.6 C 36.4 C Pulse Rate 64 64 66 Respiratory Rate 16 16 16 Blood Pressure 146/69 H 155/76 H Pulse Oximetry 99 99 100 Oxygen Delivery Room Air Fraction of Inspired Oxygen 21 Intake/Output Intake/Output: Intake & Output 08/04/24 08/05/24 08/06/24 08/07/24 23:59 23:59 23:59 23:59 Intake Total 2730 4029.6 2570 640 Output Total 1080 1294 Balance 1650 2735.6 2570 640 Meds/Results Medications: Active Medications Generic Name Dose Route Start Last Admin Trade Name Freq PRN Reason Stop Dose Admin Acetaminophen 500 mg 08/03/24 19:33 Acetaminophen 500 Mg Tablet PO Q6H PRN Pain Rated 1-3 Amoxicillin/Clavulanate Potassium 1 tablet 08/06/24 20:00 08/07/24 08:51 Amoxicillin/Clavulanate K 875-125 Mg Tab PO 1 tablet Q12HR NEISHA Administration Citalopram Hydrobromide 10 mg 08/05/24 09:00 08/07/24 08:51 Citalopram Hydrobromide 10 Mg Tablet PO 10 mg DAILY NEISHA Administration Dextrose 12.5 gm 08/02/24 20:56 Dextrose 50% 25 Gm/50 Ml Syringe IV PUSH PRN PRN Hypoglycemia Protocol Donepezil HCl 10 mg 08/04/24 21:00 08/06/24 20:32 Donepezil Hcl 10 Mg Tablet PO 10 mg QHS NEISHA Administration Enoxaparin Sodium 40 mg 08/04/24 09:00 08/07/24 09:02 Enoxaparin 40 Mg/0.4 Ml Syringe SUB-Q 40 mg DAILY NEISHA Administration Fentanyl Citrate 12.5 mcg 08/03/24 19:33 Fentanyl Citrate Inj (*Crx) 100 Mcg/2 Ml Vial IV PUSH Q2H PRN Breakthrough Pain Rated 4-6 or NPO Fentanyl Citrate 25 mcg 08/03/24 19:33 08/04/24 00:05 Fentanyl Citrate Inj (*Crx) 100 Mcg/2 Ml Vial IV PUSH 25 mcg Q2H PRN Administration Breakthrough Pain Rated 7-10 or NPO Furosemide 20 mg 08/05/24 09:00 08/07/24 08:51 Furosemide 20 Mg Tablet PO 20 mg DAILY NEISHA Administration Glucagon 1 mg 08/02/24 20:56 Glucagon For Inj 1 Mg Vial IM PRN PRN Hypoglycemia Protocol Glucose 15 gm 08/02/24 20:56 Glucose Oral Gel 15 Gm Of Glucse In 37.5 Gm Tube PO PRN PRN Hypoglycemia Protocol Hydralazine HCl 10 mg 08/02/24 21:01 Hydralazine Hcl 20 Mg/Ml Vial IV PUSH Q8H PRN BP greater than 180/90 Dextrose 1,000 mls @ 100 mls/hr 08/02/24 20:56 Dextrose 5% 1,000 Ml IVPB PRN PRN Hypoglycemia Protocol Ibuprofen 800 mg in 200 mls @ 400 mls/hr 08/03/24 19:33 Caldolor 800 Mg/200 Ml IVPB Q6H PRN Breakthrough Pain Rated 1-3 or NPO Loratadine 10 mg 08/05/24 09:00 08/07/24 08:51 Loratadine 10 Mg Tablet PO 10 mg DAILY NEISHA Administration Magnesium Oxide 400 mg 08/04/24 17:00 08/07/24 08:51 Magnesium Oxide 400 Mg Tablet PO 400 mg BID NEISHA Administration Memantine 10 mg 08/04/24 11:50 08/07/24 08:51 Memantine 10 Mg Tablet PO 10 mg Q12HR NEISHA Administration Naloxone HCl 0.1 mg 08/03/24 19:33 Naloxone Hcl 0.4 Mg/Ml Vial IV PUSH Q2M PRN Opiate Reversal Oxycodone/Acetaminophen 1 tablet 08/03/24 19:33 08/07/24 08:51 Oxycodone/Acetaminophen (*Crx) 5-325 Mg Tablet PO 1 tablet Q4H PRN Administration Pain Rated 4-6 Polyethylene Glycol 17 gm 08/07/24 09:00 08/07/24 09:02 Polyethylene Glycol 3350 17 Gm Powd.Pack PO 17 gm QAM NEISHA Administration Potassium Citrate 10 meq 08/05/24 09:00 08/07/24 08:51 Potassium Citrate 5 Meq Tab Cr PO 10 meq QAM NEISHA Administration Rosuvastatin Calcium 20 mg 08/05/24 09:00 08/07/24 08:51 Rosuvastatin 20 Mg Tablet PO 20 mg DAILY NEISHA Administration Trimethoprim/Sulfamethoxazole 1 tab 08/06/24 20:00 08/07/24 08:51 Sulfamethoxazole/Trimethoprim 800/160 Mg Ds Tablet PO 1 tab Q12HR NEISHA Administration Labs Labs: Laboratory Results - last 24 hr 08/02/24 08/06/24 08/06/24 21:40 11:53 18:26 WBC RBC Hgb Hct MCV MCH MCHC RDW Plt Count MPV Immature Gran % (Auto) Neut % (Auto) Lymph % (Auto) [place] % (Auto) Eos % (Auto) Baso % (Auto) Lymph # (Auto) [place] # (Auto) Eos # (Auto) Baso # (Auto) Abs Immat Gran (auto) Absolute Neuts (auto) Absolute Nucleated RBC Nucleated RBC % Sodium Potassium Chloride Carbon Dioxide Anion Gap BUN Creatinine Estim Creat Clear Calc Estimated GFR Glucose POC Capillary Glucose 122 H 144 H 166 H Calcium Total Bilirubin AST ALT Alkaline Phosphatase Total Protein Albumin 08/06/24 08/07/24 08/07/24 23:42 04:52 06:42 WBC 9.0 RBC 3.99 L Hgb 11.1 L Hct 35.3 L MCV 88.5 MCH 27.8 MCHC 31.4 L RDW 15.4 H Plt Count 224 MPV 10.5 H Immature Gran % (Auto) 1.8 H Neut % (Auto) 62.1 Lymph % (Auto) 24.6 [place] % (Auto) 6.7 Eos % (Auto) 3.8 Baso % (Auto) 1.0 Lymph # (Auto) 2.20 [place] # (Auto) 0.6 Eos # (Auto) 0.3 Baso # (Auto) 0.1 Abs Immat Gran (auto) 0.16 H Absolute Neuts (auto) 5.6 Absolute Nucleated RBC 0.000 Nucleated RBC % 0.0 Sodium 139 Potassium 3.1 L Chloride 107 Carbon Dioxide 27 Anion Gap 5 BUN 14 Creatinine 1.10 Estim Creat Clear Calc 63 Estimated GFR > 60 Glucose 111 H POC Capillary Glucose 124 H 125 H Calcium 8.5 Total Bilirubin 1.1 AST 65 H ALT 36 Alkaline Phosphatase 177 H Total Protein 6.0 L Albumin 2.5 L
--- NOTE | 2024-08-07 10:38 | PM.IMPN ---
Progress Note: A&P Assessment and Plan (1) Acute appendicitis with generalized peritonitis and abscess: Qualifiers: Appendicitis gangrene presence: with gangrene Appendicitis perforation presence: with perforation Qualified Code(s): K35.211 - Acute appendicitis with generalized peritonitis, with perforation and abscess Code(s): K35.219 - Acute appendicitis with generalized peritonitis, with abscess, unspecified as to perforation Status: Acute (2) Chronic kidney disease: Code(s): N18.9 - Chronic kidney disease, unspecified Status: Acute (3) Acute UTI: Code(s): N39.0 - Urinary tract infection, site not specified Status: Acute Plan (1) Rupture of appendix: Code(s): K35.32 - Acute appendicitis with perforation, localized peritonitis, and gangrene, without abscess Status: Inactive Assessment and Plan: - Did not meet SIRS criteria.? Lactic 1.6.? Blood cultures were obtained on 08/02, follow. - CT abdomen/pelvis: Ruptured acute appendicitis with 4.0 x 2.8 x 2.9 cm periappendiceal abscess. - IV fluids: 1L bolus -> 75 mL/hr x1L - Diet: full liquids, advance as tolerated - Started on Zosyn and Flagyl on 08/02, - Analgesics and antipyretics p.r.n. - General surgery consulted, awaiting formal recs s/p laparoscopic appendectomy with drainage of intra-abdominal abscess and CAMMIE drain placement Pain well controlled. Passing flatus, no BM.remove CAMMIE drain Changed to Augmentin p.o. (2) Acute UTI: Code(s): N39.0 - Urinary tract infection, site not specified Status: Acute Assessment and Plan: Of note, the patient was currently on Augmentin for treatment of a recent UTI which was started on 07/30 for a 10 day course. - UC obtained on 07/30: Ecoli with ESBL resistance Most recent urine culture sensitive to Zosyn, Repeat urine culture does not have bacteria growth (3) Hypertension: Qualifiers: Hypertension type: primary hypertension Qualified Code(s): I10 - Essential (primary) hypertension Code(s): I10 - Essential (primary) hypertension Status: Chronic Assessment and Plan: - chronic, blood pressures currently stable - home medications: Lasix 20 mg daily resumed - hydralazine 10 mg IVP p.r.n. for BP greater than 180/90 - monitor (4) Falls: Code(s): R29.6 - Repeated falls Status: Acute Assessment and Plan: reports he has barely been able to walk and has had 3 falls at home. He states that he became weak, falling out of his bed and chair.?They attributed the weakness to the infection. On Tuesday is when he fell out of his bed he did hit his head, but denies LOC. He is not on any anticoagulation and has no neuro deficits. No head CT required at this time. - PT/OT Plan is to transfer to swing bed in [place] for PT and OT (5) Chronic kidney disease: Code(s): N18.9 - Chronic kidney disease, unspecified Status: Acute Assessment and Plan: BUN/Cr 29/1.66 on admission, baseline appears to be 1.2-1.6 - BUN/Cr on am labs - Avoid nephrotoxic medications - Renally dose medications - Monitor (6) Prediabetes: Code(s): R73.03 - Prediabetes Status: Acute Assessment and Plan: - A1C 6.2% on 05/22/2024, prediabetic (7) ADIS (obstructive sleep apnea): Code(s): G47.33 - Obstructive sleep apnea (adult) (pediatric) Status: Chronic Assessment and Plan: - continue home CPAP Waiting for placement in [facility] Subjective Date/time seen: 08/07/24 10:38 Interval history: 79 year old male with PMH of dementia, ADIS, COPD, diabetes, HLD, hypertension, depression, and obesity presents to the hospital with abdominal tenderness. Patient is pleasant lying in bed. He is passing flatus but has not had a bowel movement yet. He is tolerating his diet well. Has slight abdominal pain with movement, but states that pain is well controlled on current regimen. He has no other complaints denying chest pain, shortness of breath, nausea/vomiting. Per surgery plan for removal of CAMMIE drain tomorrow. Exam Narrative: AF HR 65 RR 16 SpO2 100 BP 130/60 General: male in no acute respiratory distress who is nontoxic appearing, lying semi recumbent in bed. HEENT: Normocephalic. Atraumatic. Extraocular movement intact. Sclera clear and anicteric. No facial asymmetry. Chest: Lungs are clear to auscultation bilaterally. No wheezes or crackles. CV: Heart was regular rate and rhythm. S1/S2. No murmurs, gallops, or rubs. Abd: Abdomen was soft. slight tenderness in relation to the incision sites which are clean, dry and intact without noted drainage. CAMMIE drain in place with serosanguineous drainage. Nondistended. Normal bowel sounds. No organomegaly or masses. Ext: No clubbing, cyanosis, or edema. 2+ DP pulses bilaterally. Neuro: Speech is clear. Objective Data Vital Signs Vital Signs: Vital Signs - 24 hr 08/06/24 14:49 08/06/24 20:00 08/06/24 20:37 Temperature 98.0 F 97.9 F Pulse Rate 64 64 64 Respiratory Rate 17 16 16 Blood Pressure 135/68 146/69 H Pulse Oximetry 97 99 99 Oxygen Delivery Room Air Fraction of Inspired Oxygen 21 08/07/24 06:00 Temperature 97.6 F Pulse Rate 66 Respiratory Rate 16 Blood Pressure 155/76 H Pulse Oximetry 100 Oxygen Delivery Fraction of Inspired Oxygen Intake/Output Intake/Output: Intake & Output 08/04/24 08/05/24 08/06/24 08/07/24 23:59 23:59 23:59 23:59 Intake Total 2730 4029.6 2570 640 Output Total 1080 1294 Balance 1650 2735.6 2570 640 Meds/Results Medications: Active Medications Generic Name Dose Route Start Last Admin Trade Name Freq PRN Reason Stop Dose Admin Acetaminophen 500 mg 08/03/24 19:33 Acetaminophen 500 Mg Tablet PO Q6H PRN Pain Rated 1-3 Amoxicillin/Clavulanate Potassium 1 tablet 08/06/24 20:00 08/07/24 08:51 Amoxicillin/Clavulanate K 875-125 Mg Tab PO 1 tablet Q12HR NEISHA Administration Citalopram Hydrobromide 10 mg 08/05/24 09:00 08/07/24 08:51 Citalopram Hydrobromide 10 Mg Tablet PO 10 mg DAILY NEISHA Administration Dextrose 12.5 gm 08/02/24 20:56 Dextrose 50% 25 Gm/50 Ml Syringe IV PUSH PRN PRN Hypoglycemia Protocol Donepezil HCl 10 mg 08/04/24 21:00 08/06/24 20:32 Donepezil Hcl 10 Mg Tablet PO 10 mg QHS NEISHA Administration Enoxaparin Sodium 40 mg 08/04/24 09:00 08/07/24 09:02 Enoxaparin 40 Mg/0.4 Ml Syringe SUB-Q 40 mg DAILY NEISHA Administration Fentanyl Citrate 12.5 mcg 08/03/24 19:33 Fentanyl Citrate Inj (*Crx) 100 Mcg/2 Ml Vial IV PUSH Q2H PRN Breakthrough Pain Rated 4-6 or NPO Fentanyl Citrate 25 mcg 08/03/24 19:33 08/04/24 00:05 Fentanyl Citrate Inj (*Crx) 100 Mcg/2 Ml Vial IV PUSH 25 mcg Q2H PRN Administration Breakthrough Pain Rated 7-10 or NPO Furosemide 20 mg 08/05/24 09:00 08/07/24 08:51 Furosemide 20 Mg Tablet PO 20 mg DAILY NEISHA Administration Glucagon 1 mg 08/02/24 20:56 Glucagon For Inj 1 Mg Vial IM PRN PRN Hypoglycemia Protocol Glucose 15 gm 08/02/24 20:56 Glucose Oral Gel 15 Gm Of Glucse In 37.5 Gm Tube PO PRN PRN Hypoglycemia Protocol Hydralazine HCl 10 mg 08/02/24 21:01 Hydralazine Hcl 20 Mg/Ml Vial IV PUSH Q8H PRN BP greater than 180/90 Dextrose 1,000 mls @ 100 mls/hr 08/02/24 20:56 Dextrose 5% 1,000 Ml IVPB PRN PRN Hypoglycemia Protocol Ibuprofen 800 mg in 200 mls @ 400 mls/hr 08/03/24 19:33 Caldolor 800 Mg/200 Ml IVPB Q6H PRN Breakthrough Pain Rated 1-3 or NPO Loratadine 10 mg 08/05/24 09:00 08/07/24 08:51 Loratadine 10 Mg Tablet PO 10 mg DAILY ENISHA Administration Magnesium Oxide 400 mg 08/04/24 17:00 08/07/24 08:51 Magnesium Oxide 400 Mg Tablet PO 400 mg BID NEISHA Administration Memantine 10 mg 08/04/24 11:50 08/07/24 08:51 Memantine 10 Mg Tablet PO 10 mg Q12HR NEISHA Administration Naloxone HCl 0.1 mg 08/03/24 19:33 Naloxone Hcl 0.4 Mg/Ml Vial IV PUSH Q2M PRN Opiate Reversal Oxycodone/Acetaminophen 1 tablet 08/03/24 19:33 08/07/24 08:51 Oxycodone/Acetaminophen (*Crx) 5-325 Mg Tablet PO 1 tablet Q4H PRN Administration Pain Rated 4-6 Polyethylene Glycol 17 gm 08/07/24 09:00 08/07/24 09:02 Polyethylene Glycol 3350 17 Gm Powd.Pack PO 17 gm QAM NEISHA Administration Potassium Citrate 10 meq 08/05/24 09:00 08/07/24 08:51 Potassium Citrate 5 Meq Tab Cr PO 10 meq QAM NEISHA Administration Rosuvastatin Calcium 20 mg 08/05/24 09:00 08/07/24 08:51 Rosuvastatin 20 Mg Tablet PO 20 mg DAILY NEISHA Administration Trimethoprim/Sulfamethoxazole 1 tab 08/06/24 20:00 08/07/24 08:51 Sulfamethoxazole/Trimethoprim 800/160 Mg Ds Tablet PO 1 tab Q12HR NEISHA Administration Labs Labs: Laboratory Results - last 24 hr 08/02/24 08/06/24 08/06/24 21:40 11:53 18:26 WBC RBC Hgb Hct MCV MCH MCHC RDW Plt Count MPV Immature Gran % (Auto) Neut % (Auto) Lymph % (Auto) [place] % (Auto) Eos % (Auto) Baso % (Auto) Lymph # (Auto) [place] # (Auto) Eos # (Auto) Baso # (Auto) Abs Immat Gran (auto) Absolute Neuts (auto) Absolute Nucleated RBC Nucleated RBC % Sodium Potassium Chloride Carbon Dioxide Anion Gap BUN Creatinine Estim Creat Clear Calc Estimated GFR Glucose POC Capillary Glucose 122 H 144 H 166 H Calcium Total Bilirubin AST ALT Alkaline Phosphatase Total Protein Albumin 08/06/24 08/07/24 08/07/24 23:42 04:52 06:42 WBC 9.0 RBC 3.99 L Hgb 11.1 L Hct 35.3 L MCV 88.5 MCH 27.8 MCHC 31.4 L RDW 15.4 H Plt Count 224 MPV 10.5 H Immature Gran % (Auto) 1.8 H Neut % (Auto) 62.1 Lymph % (Auto) 24.6 [place] % (Auto) 6.7 Eos % (Auto) 3.8 Baso % (Auto) 1.0 Lymph # (Auto) 2.20 [place] # (Auto) 0.6 Eos # (Auto) 0.3 Baso # (Auto) 0.1 Abs Immat Gran (auto) 0.16 H Absolute Neuts (auto) 5.6 Absolute Nucleated RBC 0.000 Nucleated RBC % 0.0 Sodium 139 Potassium 3.1 L Chloride 107 Carbon Dioxide 27 Anion Gap 5 BUN 14 Creatinine 1.10 Estim Creat Clear Calc 63 Estimated GFR > 60 Glucose 111 H POC Capillary Glucose 124 H 125 H Calcium 8.5 Total Bilirubin 1.1 AST 65 H ALT 36 Alkaline Phosphatase 177 H Total Protein 6.0 L Albumin 2.5 L
[2024-08-07 12:08] LABS: Glucose Point of Care 186 mg/dl (65-105)
--- NOTE | 2024-08-07 13:42 | P.DS_ITS ---
DS: Admitting Diagnosis Discharge Date 08/07/2024 Admitting Diagnosis acute appendicitis with generalized peritonitis and abcess chronic kidney disease acute UTI htn falls prediabetes DS: Discharge Diagnosis Discharge Diagnosis (1) Acute appendicitis with generalized peritonitis and abscess: Qualifiers: Appendicitis gangrene presence: with gangrene Appendicitis perforation presence: with perforation Qualified Code(s): K35.211 - Acute appendicitis with generalized peritonitis, with perforation and abscess Code(s): K35.219 - Acute appendicitis with generalized peritonitis, with abscess, unspecified as to perforation Status: Acute (2) Chronic kidney disease: Code(s): N18.9 - Chronic kidney disease, unspecified Status: Acute (3) Acute UTI: Code(s): N39.0 - Urinary tract infection, site not specified Status: Acute DS: Summary Hospital Course Reason for hospitalization: acute appendicitis with generalized peritonitis and abcess chronic kidney disease acute UTI htn falls prediabetes Hospital Course: 79 year old male with PMH of dementia, ADIS, COPD, diabetes, HLD, hypertension, depression, and obesity presents to the hospital with abdominal tenderness and weakness. reports he has barely been able to walk and has had 3 falls at home. He states that he became weak, falling out of his bed and chair.?When he fell out of his bed he did hit his head, but denies LOC. He is not on any anticoagulation and has no neuro deficits. No head CT obtained. On admission patient did not meet sepsis criteria. Of note, the patient was already on Augmentin for treatment of a recent UTI which was started on 07/30 for a 10 day course. UC obtained on 07/30: Ecoli with ESBL resistance. A ct abdomen/pelvis was obtained and showed ruptured acute appendicitis with 4.0 x 2.8 x 2.9 cm periappendiceal abscess. patient started on iv antibiotics for the appendicitis and to cover the prior UTI. Surgery was consulted. Patient underwent a laparoscopic appendectomy with drainage of intra-abdominal abscess and CAMMIE drain placement on 08/[address] Avery. Drain removed on 08/07. Patient transitioned to oral antibiotics at time of discharge. Throughout admission patient worked with therapy who recommended SNF for furhter treatment. Prior to discharge patient had no complaints denying chest pain, shortness of breath, nausea/vomiting. Patient discharged in a stable condition to [facility]. He is to follow up with his PCP in 1 week and surgery in 2 weeks. Status at Discharge Functional status at discharge: uses cane/walker Time Spent with Patient Time attestation: Total time spent providing and/or coordinating discharge services: Time spent: Greater than 30 minutes Exam Narrative: AF HR 80 RR 18 SpO2 97 BP 130/62 General: male in no acute respiratory distress who is nontoxic appearing, lying semi recumbent in bed. HEENT: Normocephalic. Atraumatic. Extraocular movement intact. Sclera clear and anicteric. No facial asymmetry. Chest: Lungs are clear to auscultation bilaterally. No wheezes or crackles. CV: Heart was regular rate and rhythm. S1/S2. No murmurs, gallops, or rubs. Abd: Abdomen was soft. slight tenderness in relation to the incision sites which are clean, dry and intact without noted drainage. Nondistended. Normal bowel so unds. No organomegaly or masses. DS: Data Data Completed and Pending Completed studies during hospitalization: chest xr abdomen/pelvis ct Pending studies at discharge: Pending at discharge 08/03/24 17:30 Surgical [PTH] Routine Labs on day of discharge: Labs from last 24 hours 08/07/24 08/07/24 08/07/24 12:02 06:42 04:52 WBC 9.0 RBC 3.99 L Hgb 11.1 L Hct 35.3 L MCV 88.5 MCH 27.8 MCHC 31.4 L RDW 15.4 H Plt Count 224 MPV 10.5 H Immature Gran % (Auto) 1.8 H Neut % (Auto) 62.1 Lymph % (Auto) 24.6 [place] % (Auto) 6.7 Eos % (Auto) 3.8 Baso % (Auto) 1.0 Lymph # (Auto) 2.20 [place] # (Auto) 0.6 Eos # (Auto) 0.3 Baso # (Auto) 0.1 Abs Immat Gran (auto) 0.16 H Absolute Neuts (auto) 5.6 Absolute Nucleated RBC 0.000 Nucleated RBC % 0.0 Sodium 139 Potassium 3.1 L Chloride 107 Carbon Dioxide 27 Anion Gap 5 BUN 14 Creatinine 1.10 Estim Creat Clear Calc 63 Estimated GFR > 60 Glucose 111 H POC Capillary Glucose 186 H 125 H Calcium 8.5 Total Bilirubin 1.1 AST 65 H ALT 36 Alkaline Phosphatase 177 H Total Protein 6.0 L Albumin 2.5 L 08/06/24 08/06/24 23:42 18:26 WBC RBC Hgb Hct MCV MCH MCHC RDW Plt Count MPV Immature Gran % (Auto) Neut % (Auto) Lymph % (Auto) [place] % (Auto) Eos % (Auto) Baso % (Auto) Lymph # (Auto) [place] # (Auto) Eos # (Auto) Baso # (Auto) Abs Immat Gran (auto) Absolute Neuts (auto) Absolute Nucleated RBC Nucleated RBC % Sodium Potassium Chloride Carbon Dioxide Anion Gap BUN Creatinine Estim Creat Clear Calc Estimated GFR Glucose POC Capillary Glucose 124 H 166 H Calcium Total Bilirubin AST ALT Alkaline Phosphatase Total Protein Albumin Discharge Plan Discharge Attending physician on discharge: Marquis Ramos Consulting providers: Pete Avery Discharging Clinician: Blanche Lopez Anticipated Discharge Date/Time: 08/07/24 13:40 Patient Disposition: SNF Activity: may shower Diet: as tolerated and heart healthy Wound Care Instructions: remove dressing to shower and change dressing daily Discharge Instructions: Discharge disposition: Patient admitted to the hospital for a ruptured appendix Underwent a laparoscopic appendectomy with drainage of intra-abdominal abscess and CAMMIE drain placement on 08/[address] Avery Take medications as prescribed Augmentin, course to be completed on 08/10/24 Attached is information on this medication Ambulate 3-4 x per day and as tolerated. Okay to participate fully in physical therapy and occupational therapy at group home. No lifting over 15-20lbs. May bathe or shower. Stairs are OK. Dry gauze dressing to left-sided drain site. Change daily but discontinue dressings to this area on 08/10/2024. Remove any dressings before shower and replace after. See Dr. Avery in his office in 2 weeks. Call to make appointment. Patient recently diagnosed with a urinary tract infection Eat well balanced meals and stay hydrated Keep active to remain strong Avoid use of diapers or pads Good neli Care every 2 hours Trend urine output Monitor blood pressures Take caution while standing, rising, or moving Change positions slowly taking a break between each position change If you standing feel dizzy sit back down and take a break Encouraged to continue with yearly vaccinations Return to the emergency department if he developed sudden shortness of breath, chest pain, nausea, vomiting, upset stomach or intractable diarrhea Return to the emergency department if you develop fever greater than 101.5 Follow-up with the primary care physician within 1 weeks Thank you for choosing [facility] for your healthcare needs Patient Instructions: Amoxicillin/Clavulanate Potassium (By mouth) Patient Language: Kazakh Stand Alone Forms: General Discharge Information Follow-up/Referrals: Pete Avery MD [Physician] - 2 Weeks (Call Dr. Molina office to schedule appointment) Alonzo Campoverde MD [Primary Care Provider] - 1 Week Discharge Medications: New polyethylene glycol 3350 [Miralax] 17 gram Powder In Packet 17 g PO QAM Qty: 10 0RF amoxicillin-pot clavulanate 875-125 mg tablet 1 tablet PO Q12H Qty: 6 0RF Patient Comments: for 3 more days oxycodone-acetaminophen [Percocet] 5-325 mg tablet 0.5 - 1 tablet PO Q4H PRN (Reason: pain) Qty: 10 0RF Continued potassium citrate 10 mEq (1,080 mg) tablet extended release 10 meq PO DAILY oxybutynin chloride 5 mg tablet 5 mg PO TID magnesium oxide 400 mg (241.3 mg magnesium) tablet 400 mg PO BID Anoro Ellipta 62.5-25 mcg/actuation blister with device 1 inh inhalation Q24H Qty: 60 11RF donepezil 10 mg tablet 10 mg PO QHS aspirin 81 mg tablet,delayed release (DR/EC) 81 mg PO DAILY Centrum Silver 400-250 mcg tablet,chewable 1 tablet PO DAILY cranberry fruit 500 mg tablet,chewable 1,000 mg PO DAILY rosuvastatin 20 mg tablet 20 mg PO DAILY memantine [Namenda] 10 mg tablet 10 mg PO Q12H citalopram 10 mg tablet 10 mg PO DAILY Patient Comments: am furosemide 20 mg tablet 20 mg PO DAILY Patient Comments: am loratadine [Claritin] 10 mg Tablet 10 mg PO DAILY Discontinued amoxicillin-pot clavulanate 875-125 mg tablet 1 tablet PO Q12H Rx Instructions: for 10 days Date of admission: 08/03/24 07:34 Primary Care Provider: Alonzo Campoverde Admitting Provider: Nicole Lopez Attending physician on admission: Blanche Lopez Condition: Stable Hospitalist MIPS Heart Failure (Exclusion) Patient has history of Heart Transplant or Left Ventricular Assistive Device?: No IF YES, STOP HERE Heart Failure (Qualifier) Patient has current or prior documentation of LVEF less than or equal to 40%, or mod/servere depressed LVSF?: No IF NO, STOP HERE
[2024-08-07 14:00] VITALS: BP 130/62; PULSE 70; RESP 18; TEMP 36.4; O2SAT 97
== END 2024-08-07 14:30 | disposition swing bed (61) | DRG 398 ==
PROVIDERS: Internal Medicine; Student in an Organized Health Care Education/Training Program; Surgery; Admitting Provider Internal Medicine; PCP Internal Medicine; Visit Provider Student in an Organized Health Care Education/Training Program
PROC: 0DTJ4ZZ Resection of Appendix, Percutaneous Endoscopic Approach (ICD-10-PCS; CPT 44970; principal; 2024-08-03 14:30)
DX: K35.33 Acute appendicitis with perforation, localized peritonitis, and gangrene, with abscess (principal); N39.0 Urinary tract infection, site not specified; Z16.12 Extended spectrum beta lactamase (ESBL) resistance; I12.9 Hypertensive chronic kidney disease with stage 1 through stage 4 chronic kidney disease, or unspecified chronic kidney disease; N18.31 Chronic kidney disease, stage 3a; F03.90 Unspecified dementia, unspecified severity, without behavioral disturbance, psychotic disturbance, mood disturbance, and anxiety; G47.33 Obstructive sleep apnea (adult) (pediatric); J44.9 Chronic obstructive pulmonary disease, unspecified; R73.03 Prediabetes; E78.5 Hyperlipidemia, unspecified; F32.A Depression, unspecified; R32 Unspecified urinary incontinence; R29.6 Repeated falls; E66.9 Obesity, unspecified; Z68.31 Body mass index [BMI] 31.0-31.9, adult; Z79.82 Long term (current) use of aspirin; B96.20 Unspecified Escherichia coli [E. coli] as the cause of diseases classified elsewhere
CPT/HCPCS: 36415; 80048; 80053; 82948; 83605; 85025; 85027; 85055; 88304; 97110; 97162; 97530; 97535; 99285; A9270; G0378; J1650; J2003; J2270; J2371; J2543; J2704; J3010; J7030; J7120

== ENCOUNTER 2024-08-07 15:13 | Inpatient (IN) | payer MEDICARE, SELFPAY ==
[2024-08-07 15:44] VITALS: BMI 31.6
[2024-08-07 16:21] VITALS: BP 140/69; PULSE 77; RESP 16; TEMP 36.6; O2SAT 96
--- NOTE | 2024-08-07 16:23 | ADMGEN ---
This patient, Rodriguez Coleman, was admitted to 2nd Floor Room 203-1. Patient/family oriented to hospital policies and general routines including ID bracelet, bed and alarms, visiting hours, pain management, procedures, bathroom and other care routines, personal items, smoking policy, room service/diet, and visiting hours. alexandro will bring in pants and other needed clothing items for therapy, she is also going to bring in his shaving accessories and his cpap machine. 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 Patient/Family are encouraged to report perceived risks to care and to ask questions if they do not understand what they are told or what they should do.
[2024-08-07] MEDS: MAGNESIUM OXIDE 400 MG TABLET PO (19:13)
[2024-08-07] MEDS: oxyBUTYnin CHLORIDE 5 MG TABLET PO (19:13)
[2024-08-07] MEDS: UMECLIDINIUM/VILANTEROL 62.5-25 MCG ELLIPTA 1 PUFF INHALATION (19:13)
[2024-08-07] MEDS: MEMANTINE 5 MG TABLET 10 MG PO (20:16)
[2024-08-07] MEDS: DONEPEZIL HCL 5 MG TABLET 10 MG PO (20:16)
[2024-08-07] MEDS: oxyCODONE/ACETAMINOPHEN (*CRX) 5-325 MG TABLET 1 TABLET PO (20:17)
[2024-08-07] MEDS: AMOXICILLIN/CLAVULANATE K 875-125 MG TAB 1 TABLET PO (20:17)
[2024-08-07 20:21] LABS: Glucose Point of Care 120 mg/dl (65-105)
[2024-08-08] VITALS: BP 131/57; PULSE 66; RESP 17; TEMP 36.2; O2SAT 98
[2024-08-08 08:00] VITALS: BP 116/74; PULSE 74; RESP 18; TEMP 35.9; O2SAT 95
--- NOTE | 2024-08-08 08:02 | P.HP_ITS ---
H&P: HPI History of Present Illness Date/Time: 08/08/24 08:02 Chief Complaint: Rehab Narrative: This is a 79-year-old male with a significant past medical history of dementia, obstructive sleep apnea, COPD, type 2 diabetes mellitus, hyperlipidemia, hypertension, depression who presented to [facility] for rehab program from [facility] after having a laparoscopic appendectomy with drainage of intra-abdominal abscess on 08/03/2024. A CAMMIE drain was also inserted. He originally presented to the hospital with weakness and abdominal pain. He did have UTI previously and was undergoing treatment prior to his appendix rupture. He also was having frequent falls at home. He was treated with Zosyn and Flagyl and then transitioned over to monotherapy with just Zosyn on 08/04/24. CAMMIE drain was removed on 08/07/2024 by General surgery. He was seen by PT and OT over at [facility] who recommend SNF placement for continued rehab needs. Zosyn was then changed over to Augmentin On 08/07/2024 and he was discharged from [facility] in stable condition. Today he denies any fever, chills, nausea, vomiting, diarrhea, abdominal pain, chest pain, shortness a breath. He states that his incisional pain is minimal and is tolerating therapy. Review of Systems Review of Systems: All systems reviewed & are unremarkable except as noted in HPI and below Constitutional: Constitutional: Reports as per HPI and Reports no additional constitutional complaints Eyes: Eyes: Reports as per HPI and Reports no additional eye complaints ENT: Reports system reviewed and no additional complaints, except as documented and Reports as per HPI Cardiovascular: Cardiovascular: Reports as per HPI and Reports no additional cardiovascular complaints Respiratory: Respiratory: Reports as per HPI and Reports no additional respiratory complaints Gastrointestinal: Gastrointestinal: Reports as per HPI and Reports no additional gastrointestinal complaints Genitourinary: Genitourinary: Reports no additional male genitourinary complaints and Reports as per HPI Musculoskeletal: Musculoskeletal: Reports no additional musculoskeletal complaints and Reports as per HPI Integumentary/Breasts: Skin/Breast: Reports system reviewed and no additional complaints, except as docu and Reports as per HPI Neurologic: Reports system reviewed and no additional complaints, except as documented and Reports as per HPI Psychiatric: Psychiatric: Reports no additional psychiatric complaints and Reports as per HPI [facility] Past Medical History Medical History CHF (congestive heart failure) DM2 (diabetes mellitus, type 2) Urinary incontinence (10/03/17) Pedal edema (04/17/18) Dementia ADIS (obstructive sleep apnea) COPD (chronic obstructive pulmonary disease) Hyperlipidemia Hypertension Depression Overweight Surgical History Surgical History History of laparoscopic appendectomy History of mitral valve repair 2014. [facility] History of hernia repair Hx of cataract surgery Right Eye Family History Family History Father , Age 86 Acute myocardial infarction Dementia Mother , Age 83 No problems noted. Other Family history of cardiovascular disease Social History Social History Smoking status: Never smoker Second hand tobacco smoke exposure: No Alcohol intake: never Substance use: never Substance use type: does not use Do You Feel Safe in your Home?: Yes Lack of Transportation: No Lack of Food: Never True Current Housing: I Have Housing Concerned About Future Housing: No Difficulty Paying Gas/Electric Bills: No Difficulty Paying for Meds: No Currently Unemployed: No Education: High School Diploma/GED Difficulty w/ Childcare or Family Care: No Living arrangements: with family Additional living arrangements comments: Occupation/Education: retired 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 Gender identity (if verbalized by the patient): Male Spiritual care concerns: No Meds Home Medications and Allergies Home Medications ?Medication ?Instructions ?Recorded ?Confirmed ?Type memantine 10 mg tablet (Namenda) 10 mg PO Q12H 07/13/19 08/07/24 History rosuvastatin 20 mg tablet 20 mg PO DAILY 07/13/19 08/07/24 History aspirin 81 mg tablet,delayed 81 mg PO DAILY 01/14/22 08/07/24 History release donepezil 10 mg tablet 10 mg PO QHS 01/14/22 08/07/24 History azbfhffzcvwm-auhcltc-gifvg acid 1 tablet PO DAILY 01/14/22 08/07/24 History 400 mcg-lutein 250 mcg chewable tablet (Centrum Silver) potassium citrate 10 mEq (1,080 10 meq PO DAILY 05/01/23 08/07/24 History mg) tablet,extended release oxybutynin chloride 5 mg tablet 5 mg PO TID 05/15/23 08/07/24 History citalopram 10 mg tablet 10 mg PO DAILY 04/16/24 08/07/24 History furosemide 20 mg tablet 20 mg PO DAILY 04/16/24 08/07/24 History loratadine 10 mg tablet (Claritin) 10 mg PO DAILY 04/16/24 08/07/24 History Anoro Ellipta 62.5 mcg-25 1 inh inhalation Q24H #60 ea 06/29/24 08/07/24 Rx mcg/actuation powder for inhalation (umeclidinium-vilanterol) cranberry fruit 500 mg chewable 1,000 mg PO DAILY 07/10/24 08/07/24 History tablet magnesium oxide 400 mg (241.3 mg 400 mg PO BID 08/02/24 08/07/24 History magnesium) tablet amoxicillin 875 mg-potassium 1 tablet PO Q12H #6 tabs 08/07/24 08/07/24 Rx clavulanate 125 mg tablet oxycodone-acetaminophen 5 mg-325 0.5 - 1 tablet PO Q4H PRN pain #10 08/07/24 08/07/24 Rx mg tablet (Percocet) tabs polyethylene glycol 3350 17 gram 17 g PO QAM #10 ea 08/07/24 08/07/24 Rx oral powder packet (Miralax) Allergies Allergy/AdvReac Type Severity Reaction Status Date / Time No Known Allergies Allergy Verified 08/03/24 15:31 Vital Signs Vital Signs - 24 hr 08/07/24 16:21 08/08/24 00:00 Temperature 97.9 F 97.1 F L Pulse Rate 77 66 Respiratory Rate 16 17 Blood Pressure 140/69 131/57 L Pulse Oximetry 96 98 Oxygen Delivery Room Air Room Air Exam Narrative: General: In no acute distress, well nourished Head: atraumatic, no encephalopathy Eyes: PERRLA, sclera clear ENT: moist mucous membranes, nasal passages clear Neck: supple, no JVD, no adenopathy, trachea midline Cardiac: Normal S1 and S2. RRR, No murmur, gallops or friction rubs, peripheral pulses intact. Respiratory: Lungs clear to auscultation, no adventitious lung sounds , currently on room air Gastrointestinal: soft, non-distended, non-tender, normoactive bowel sounds. : voiding without difficulty. Extremities: moves all extremities well, no edema Skin: clean, dry, intact. No wounds or lesions. Neuro: Alert and oriented x4, cranial nerves intact, no neuro deficits. Psych: normal mood, normal affect, interactive Assessment and Plan Assessment and plan (1) Generalized weakness: Code(s): R53.1 - Weakness Status: Acute Assessment and Plan: * patient was reported to have frequent falls at home. He had a recent acute UTI which he was treated for on an outpatient basis and then a delayed hospital stay due to ruptured appendix, status post laparoscopic appendectomy with CAMMIE drain placement and drainage of abscess. * PT and OT ordered * Case management following * continue fall precautions (2) Falls: Code(s): R29.6 - Repeated falls Status: Acute Assessment and Plan: see above plan of care (3) Acute appendicitis with generalized peritonitis and abscess: Qualifiers: Appendicitis gangrene presence: with gangrene Appendicitis perforation presence: with perforation Qualified Code(s): K35.211 - Acute appendicitis with generalized peritonitis, with perforation and abscess Code(s): K35.219 - Acute appendicitis with generalized peritonitis, with abscess, unspecified as to perforation Status: Acute Assessment and Plan: * status post laparoscopic appendectomy with drainage of intra abdominal abscess with Dr. Avery * was treated with Zosyn and Flagyl in which they went to monotherapy with just Zosyn immediately postop, he was then transitioned yesterday to Augmentin * continue Augmentin (4) DM2 (diabetes mellitus, type 2): Qualifiers: Diabetes mellitus complication status: without complication Diabetes mellitus half-way insulin use: without half-way use Qualified Code(s): E11.9 - Type 2 diabetes mellitus without complications Code(s): E11.9 - Type 2 diabetes mellitus without complications Status: Chronic Assessment and Plan: * Blood sugars ranging 125-186 * Hgb A1C 6.2 on 05/22/2024 * Accu checks AC/HS * high-dose SSI ordered * hypoglycemic protocol in place * Diabetic diet ordered (5) CHF (congestive heart failure): Code(s): I50.9 - Heart failure, unspecified Status: Chronic Assessment and Plan: * last echo was reviewed from 05/18/2018 which shown mildly reduced ejection fraction with an estimated EF of 50%, grade 1 diastolic dysfunction * continue Lasix 20 mg daily (6) Chronic kidney disease: Code(s): N18.9 - Chronic kidney disease, unspecified Status: Chronic Assessment and Plan: * baseline creatinine 1.0-1.2, baseline EGFR 59 to greater than 60 * currently at baseline function (7) Dementia: Qualifiers: Dementia behavioral or psychological symptom: unspecified whether behavioral, psychotic, or mood disturbance or anxiety Dementia severity: moderate Dementia type: unspecified type Qualified Code(s): F03.B0 - Unspecified dementia, moderate, without behavioral disturbance, psychotic disturbance, mood disturbance, and anxiety Code(s): F03.90 - Unspecified dementia, unspecified severity, without behavioral disturbance, psychotic disturbance, mood disturbance, and anxiety Status: Chronic Assessment and Plan: * continue Aricept and Namenda (8) Hyperlipidemia: Code(s): E78.5 - Hyperlipidemia, unspecified Status: Chronic Assessment and Plan: * continue Crestor and aspirin (9) Hypertension: Qualifiers: Hypertension type: primary hypertension Qualified Code(s): I10 - E ssential (primary) hypertension Code(s): I10 - Essential (primary) hypertension Status: Chronic Assessment and Plan: * blood pressures ranging 116/74 to 140/69 * not currently on any home medication * continue to monitor (10) COPD (chronic obstructive pulmonary disease): Qualifiers: COPD type: unspecified COPD Qualified Code(s): J44.9 - Chronic obstructive pulmonary disease, unspecified Code(s): J44.9 - Chronic obstructive pulmonary disease, unspecified Status: Chronic Assessment and Plan: * continue Ellipta inhaler * continue Claritin (11) ADIS (obstructive sleep apnea): Code(s): G47.33 - Obstructive sleep apnea (adult) (pediatric) Status: Chronic Assessment and Plan: * continue CPAP (12) Depression: Code(s): F32.9 - Major depressive disorder, single episode, unspecified Status: Chronic Assessment and Plan: * continue Celexa Quality If No VTE Prophylaxis Answer both mechanical and pharmacologic: Reason no mechanical VTE proph: low risk/not indicated Reason no pharmacologic proph: low risk/not indicated Hospitalist MIPS Advance Care Plan I have confirmed that the patient's Advanced Care Plan is present, code status is documented, or surrogate decision maker is listed in patient medical record.: Yes Medication Reconciliation I have utilized all available resources to obtain, update and review the patients current medications (includes all prescriptions, OTC, herbals, cannabis, and nutritional supplements).: Yes
[2024-08-08 08:18] LABS: Glucose Point of Care 127 mg/dl (65-105)
[2024-08-08] MEDS: MULTIVITAMINS THERAPEUTIC TAB (*BKC) 1 TABLET PO (08:52)
[2024-08-08] MEDS: ROSUVASTATIN 10 MG TABLET 20 MG PO (08:52)
[2024-08-08] MEDS: AMOXICILLIN/CLAVULANATE K 875-125 MG TAB 1 TABLET PO ×2 (08:52→20:39)
[2024-08-08] MEDS: MEMANTINE 5 MG TABLET 10 MG PO ×2 (08:52→20:38)
[2024-08-08] MEDS: ASPIRIN 81 MG ENTERIC TABLET PO (08:52)
[2024-08-08] MEDS: CITALOPRAM HYDROBROMIDE 10 MG TABLET PO (08:52)
[2024-08-08] MEDS: polyethylene glycoL 3350 17 GM POWD.PACK PO (08:52)
[2024-08-08] MEDS: LORATADINE 10 MG TABLET PO (08:52)
[2024-08-08] MEDS: FUROSEMIDE 20 MG TABLET PO (08:52)
[2024-08-08] MEDS: MAGNESIUM OXIDE 400 MG TABLET PO ×2 (08:53→17:58)
[2024-08-08] MEDS: oxyBUTYnin CHLORIDE 5 MG TABLET PO ×3 (08:53→17:58)
[2024-08-08] MEDS: oxyCODONE/ACETAMINOPHEN (*CRX) 5-325 MG TABLET 1 TABLET PO (09:18)
[2024-08-08 09:20] LABS: Basophils Absolute Auto 0.05 K/mm3 (0.00-0.10); Basophils Percent Auto 0.5 % (0.0-1.0); Eosinophils Absolute Auto 0.26 K/mm3 (0.02-0.50); Eosinophils Percent Auto 2.8 % (1.0-6.0); Hematocrit 36.9 % (37.0-46.0); Hemoglobin 11.9 g/dL (12.4-15.3); Immature Granulocyte Absolute 0.15 K/mm3 (0.00-0.00); Immature Granulocyte Percent A 1.6 % (0.0-0.0); Lymphocytes Absolute Auto 1.76 K/mm3 (1.10-4.50); Lymphocytes Percent Auto 18.6 % (18.0-42.0); Mean Corpuscular HGB Conc 32.2 g/dL (32-36); Mean Corpuscular Hemoglobin 28.1 pg (27.0-31.0); Mean Corpuscular Volume 87.2 fL (78.0-102.0); Mean Platelet Volume 9.9 fl (8.7-11.0); Monocytes Absolute Auto 0.45 K/mm3 (0.10-0.90); Monocytes Percent Auto 4.8 % (2.0-11.0); Neutrophils Absolute Auto 6.78 K/mm3 (1.70-7.20); Neutrophils Percent Auto 71.7 % (50.0-70.0); Platelet Count Result 258 K/mm3 (150-420); Red Blood Count 4.23 M/mm3 (4.70-6.10); Red Cell Distribution Width 15.6 % (11.6-14.4); White Blood Count 9.5 K/mm3 (4.8-10.8)
[2024-08-08 09:41] LABS: Alanine Aminotransferase 39 U/L (16-63); Albumin Level 1.6 g/dL (3.4-5.0); Alkaline Phosphatase 175 U/L (46-116); Anion Gap 6 mmol/L (4-12); Aspartate Amino Transferase 35 U/L (15-37); Bilirubin,Total 0.7 mg/dL (0.00-1.00); Blood Urea Nitrogen 14 mg/dL (7-18); Calcium 9.3 mg/dL (8.5-10.1); Carbon Dioxide 29 mmol/L (21-32); Chloride 106 mmol/L (98-108); Estimated CRCL calculation 57 ml/min; Estimated Glomerular Filt Rate 57; Glucose 203 mg/dL (70-99); Osmolality Calculated 298 mOsm/kg (285-295); Potassium 3.8 mmol/L (3.5-5.1); Sodium 141 mmol/L (136-145); Total Protein 6.1 g/dL (6.4-8.2)
[2024-08-08 09:46] LABS: Magnesium 2.1 mg/dL (1.8-2.4)
[2024-08-08 12:12] LABS: Glucose Point of Care 184 mg/dl (65-105)
[2024-08-08 16:00] VITALS: BP 116/53; PULSE 59; RESP 18; TEMP 36; O2SAT 97
[2024-08-08 17:03] LABS: Glucose Point of Care 135 mg/dl (65-105)
[2024-08-08] MEDS: UMECLIDINIUM/VILANTEROL 62.5-25 MCG ELLIPTA 1 PUFF INHALATION (17:59)
[2024-08-08] MEDS: DONEPEZIL HCL 5 MG TABLET 10 MG PO (20:39)
[2024-08-08 20:48] LABS: Glucose Point of Care 177 mg/dl (65-105)
[2024-08-08 23:53] VITALS: BP 126/65; PULSE 61; RESP 16; TEMP 36.5; O2SAT 98
[2024-08-09 07:30] VITALS: BP 130/70; PULSE 57; RESP 16; TEMP 36.1; O2SAT 100
[2024-08-09 08:18] LABS: Glucose Point of Care 125 mg/dl (65-105)
[2024-08-09] MEDS: LORATADINE 10 MG TABLET PO (09:15)
[2024-08-09] MEDS: MULTIVITAMINS THERAPEUTIC TAB (*BKC) 1 TABLET PO (09:15)
[2024-08-09] MEDS: MAGNESIUM OXIDE 400 MG TABLET PO ×2 (09:15→18:26)
[2024-08-09] MEDS: ASPIRIN 81 MG ENTERIC TABLET PO (09:15)
[2024-08-09] MEDS: ROSUVASTATIN 10 MG TABLET 20 MG PO (09:15)
[2024-08-09] MEDS: FUROSEMIDE 20 MG TABLET PO (09:15)
[2024-08-09] MEDS: oxyBUTYnin CHLORIDE 5 MG TABLET PO ×2 (09:15→18:26)
[2024-08-09] MEDS: MEMANTINE 5 MG TABLET 10 MG PO ×2 (09:15→20:21)
[2024-08-09] MEDS: polyethylene glycoL 3350 17 GM POWD.PACK PO (09:15)
[2024-08-09] MEDS: CITALOPRAM HYDROBROMIDE 10 MG TABLET PO (09:15)
[2024-08-09] MEDS: AMOXICILLIN/CLAVULANATE K 875-125 MG TAB 1 TABLET PO ×2 (09:16→20:21)
[2024-08-09 11:30] LABS: Glucose Point of Care 162 mg/dl (65-105)
[2024-08-09 16:35] VITALS: BP 133/58; PULSE 62; RESP 16; TEMP 36.3; O2SAT 99
[2024-08-09 16:46] LABS: Glucose Point of Care 135 mg/dl (65-105)
[2024-08-09] MEDS: UMECLIDINIUM/VILANTEROL 62.5-25 MCG ELLIPTA 1 PUFF INHALATION (18:26)
[2024-08-09] MEDS: DONEPEZIL HCL 5 MG TABLET 10 MG PO (20:20)
[2024-08-09] MEDS: oxyCODONE/ACETAMINOPHEN (*CRX) 5-325 MG TABLET 1 TABLET PO (20:21)
[2024-08-09 20:28] LABS: Glucose Point of Care 138 mg/dl (65-105)
[2024-08-10] VITALS: BP 139/66; PULSE 62; RESP 15; TEMP 36.4; O2SAT 97
[2024-08-10 07:40] VITALS: BP 140/72; PULSE 64; RESP 16; TEMP 35.8; O2SAT 98
[2024-08-10 07:56] LABS: Glucose Point of Care 113 mg/dl (65-105)
[2024-08-10 08:35] VITALS: PULSE 64; RESP 16; O2SAT 98
[2024-08-10] MEDS: ASPIRIN 81 MG ENTERIC TABLET PO (09:29)
[2024-08-10] MEDS: MEMANTINE 5 MG TABLET 10 MG PO ×2 (09:29→20:33)
[2024-08-10] MEDS: ROSUVASTATIN 10 MG TABLET 20 MG PO (09:29)
[2024-08-10] MEDS: FUROSEMIDE 20 MG TABLET PO (09:29)
[2024-08-10] MEDS: AMOXICILLIN/CLAVULANATE K 875-125 MG TAB 1 TABLET PO (09:29)
[2024-08-10] MEDS: LORATADINE 10 MG TABLET PO (09:29)
[2024-08-10] MEDS: CITALOPRAM HYDROBROMIDE 10 MG TABLET PO (09:30)
[2024-08-10] MEDS: oxyBUTYnin CHLORIDE 5 MG TABLET PO ×2 (09:30→16:46)
[2024-08-10] MEDS: MAGNESIUM OXIDE 400 MG TABLET PO ×2 (09:30→16:46)
[2024-08-10] MEDS: MULTIVITAMINS THERAPEUTIC TAB (*BKC) 1 TABLET PO (09:30)
[2024-08-10 11:54] LABS: Glucose Point of Care 130 mg/dl (65-105)
[2024-08-10 15:41] VITALS: BP 135/61; PULSE 60; RESP 18; TEMP 36.4; O2SAT 96
[2024-08-10 16:24] LABS: Glucose Point of Care 183 mg/dl (65-105)
[2024-08-10] MEDS: UMECLIDINIUM/VILANTEROL 62.5-25 MCG ELLIPTA 1 PUFF INHALATION (18:03)
[2024-08-10 19:40] VITALS: PULSE 64; RESP 18; O2SAT 96
[2024-08-10] MEDS: DONEPEZIL HCL 5 MG TABLET 10 MG PO (20:33)
[2024-08-10 20:40] LABS: Glucose Point of Care 153 mg/dl (65-105)
[2024-08-11] VITALS: BP 131/56; PULSE 67; RESP 16; TEMP 36.6; O2SAT 94
[2024-08-11 07:48] LABS: Glucose Point of Care 137 mg/dl (65-105)
[2024-08-11 08:00] VITALS: BP 115/63; PULSE 65; RESP 16; TEMP 36.3; O2SAT 95
[2024-08-11] MEDS: MULTIVITAMINS THERAPEUTIC TAB (*BKC) 1 TABLET PO (08:40)
[2024-08-11] MEDS: LORATADINE 10 MG TABLET PO (08:40)
[2024-08-11] MEDS: FUROSEMIDE 20 MG TABLET PO (08:41)
[2024-08-11] MEDS: MEMANTINE 5 MG TABLET 10 MG PO ×2 (08:41→20:53)
[2024-08-11] MEDS: CITALOPRAM HYDROBROMIDE 10 MG TABLET PO (08:41)
[2024-08-11] MEDS: ROSUVASTATIN 10 MG TABLET 20 MG PO (08:42)
[2024-08-11] MEDS: oxyCODONE/ACETAMINOPHEN (*CRX) 5-325 MG TABLET 1 TABLET PO ×2 (08:42→20:54)
[2024-08-11] MEDS: ASPIRIN 81 MG ENTERIC TABLET PO (08:42)
[2024-08-11] MEDS: MAGNESIUM OXIDE 400 MG TABLET PO ×2 (08:43→16:57)
[2024-08-11] MEDS: oxyBUTYnin CHLORIDE 5 MG TABLET PO ×3 (08:43→16:56)
[2024-08-11 11:46] LABS: Glucose Point of Care 156 mg/dl (65-105)
[2024-08-11 16:00] VITALS: BP 136/68; PULSE 58; RESP 16; TEMP 35.9; O2SAT 99
[2024-08-11 16:50] LABS: Glucose Point of Care 141 mg/dl (65-105)
[2024-08-11] MEDS: UMECLIDINIUM/VILANTEROL 62.5-25 MCG ELLIPTA 1 PUFF INHALATION (18:16)
[2024-08-11 20:00] VITALS: PULSE 58; RESP 16; O2SAT 99
[2024-08-11] MEDS: DONEPEZIL HCL 5 MG TABLET 10 MG PO (20:53)
[2024-08-11 20:58] LABS: Glucose Point of Care 150 mg/dl (65-105)
[2024-08-12] VITALS: BP 138/58; PULSE 59; RESP 17; TEMP 36.2; O2SAT 97
[2024-08-12 07:34] LABS: Glucose Point of Care 114 mg/dl (65-105)
[2024-08-12 07:44] VITALS: BP 143/69; PULSE 60; RESP 16; TEMP 35.9; O2SAT 96
[2024-08-12] MEDS: MAGNESIUM OXIDE 400 MG TABLET PO ×2 (08:19→16:36)
[2024-08-12] MEDS: CITALOPRAM HYDROBROMIDE 10 MG TABLET PO (08:20)
[2024-08-12] MEDS: MULTIVITAMINS THERAPEUTIC TAB (*BKC) 1 TABLET PO (08:20)
[2024-08-12] MEDS: oxyBUTYnin CHLORIDE 5 MG TABLET PO ×3 (08:20→16:36)
[2024-08-12] MEDS: MEMANTINE 5 MG TABLET 10 MG PO ×2 (08:20→20:25)
[2024-08-12] MEDS: ASPIRIN 81 MG ENTERIC TABLET PO (08:21)
[2024-08-12] MEDS: LORATADINE 10 MG TABLET PO (08:21)
[2024-08-12] MEDS: ROSUVASTATIN 10 MG TABLET 20 MG PO (08:21)
[2024-08-12] MEDS: FUROSEMIDE 20 MG TABLET PO (08:21)
[2024-08-12 11:49] LABS: Glucose Point of Care 154 mg/dl (65-105)
[2024-08-12 16:00] VITALS: BP 124/56; PULSE 65; RESP 16; TEMP 36.1; O2SAT 99
[2024-08-12 16:39] LABS: Glucose Point of Care 134 mg/dl (65-105)
[2024-08-12] MEDS: UMECLIDINIUM/VILANTEROL 62.5-25 MCG ELLIPTA 1 PUFF INHALATION (18:52)
[2024-08-12 20:00] VITALS: PULSE 65; RESP 16; O2SAT 99
[2024-08-12] MEDS: DONEPEZIL HCL 5 MG TABLET 10 MG PO (20:25)
[2024-08-12] MEDS: oxyCODONE/ACETAMINOPHEN (*CRX) 5-325 MG TABLET 1 TABLET PO (20:25)
[2024-08-12 20:30] LABS: Glucose Point of Care 148 mg/dl (65-105)
[2024-08-13] VITALS: BP 130/59; PULSE 57; RESP 17; TEMP 36.2; O2SAT 97
[2024-08-13 07:52] LABS: Glucose Point of Care 115 mg/dl (65-105)
[2024-08-13 08:00] VITALS: BP 132/62; PULSE 62; RESP 14; TEMP 36.6; O2SAT 97
[2024-08-13] MEDS: oxyBUTYnin CHLORIDE 5 MG TABLET PO ×3 (09:20→17:46)
[2024-08-13] MEDS: CITALOPRAM HYDROBROMIDE 10 MG TABLET PO (09:20)
[2024-08-13] MEDS: FUROSEMIDE 20 MG TABLET PO (09:21)
[2024-08-13] MEDS: MAGNESIUM OXIDE 400 MG TABLET PO ×2 (09:21→17:46)
[2024-08-13] MEDS: LORATADINE 10 MG TABLET PO (09:21)
[2024-08-13] MEDS: MEMANTINE 5 MG TABLET 10 MG PO ×2 (09:21→21:27)
[2024-08-13] MEDS: ROSUVASTATIN 10 MG TABLET 20 MG PO (09:21)
[2024-08-13] MEDS: MULTIVITAMINS THERAPEUTIC TAB (*BKC) 1 TABLET PO (09:21)
[2024-08-13] MEDS: ASPIRIN 81 MG ENTERIC TABLET PO (09:21)
[2024-08-13] MEDS: polyethylene glycoL 3350 17 GM POWD.PACK PO (09:22)
[2024-08-13 11:45] LABS: Glucose Point of Care 133 mg/dl (65-105)
[2024-08-13 16:00] VITALS: BP 121/53; PULSE 58; RESP 18; TEMP 36.1; O2SAT 95
[2024-08-13 17:09] LABS: Glucose Point of Care 133 mg/dl (65-105)
[2024-08-13] MEDS: UMECLIDINIUM/VILANTEROL 62.5-25 MCG ELLIPTA 1 PUFF INHALATION (17:46)
[2024-08-13] MEDS: DONEPEZIL HCL 5 MG TABLET 10 MG PO (21:27)
[2024-08-13 21:47] LABS: Glucose Point of Care 122 mg/dl (65-105)
[2024-08-14] VITALS: BP 133/62; PULSE 60; RESP 18; TEMP 36.2; O2SAT 98
[2024-08-14 07:45] VITALS: BP 120/61; PULSE 63; RESP 16; TEMP 36.2; O2SAT 98
[2024-08-14 07:59] LABS: Glucose Point of Care 115 mg/dl (65-105)
[2024-08-14 08:00] VITALS: PULSE 63; RESP 16; O2SAT 98
--- NOTE | 2024-08-14 08:21 | P.DS_ITS ---
DS: Admitting Diagnosis Discharge Date 08/14/2024 Admitting Diagnosis Rehabilitation post hospitalization due to ruptured appendix DS: Discharge Diagnosis Discharge Diagnosis (1) Generalized weakness: Code(s): R53.1 - Weakness Status: Acute Assessment and Plan: * PT and OT with home health * continue fall precautions (2) Falls: Code(s): R29.6 - Repeated falls Status: Acute Assessment and Plan: see above plan of care (3) Acute appendicitis with generalized peritonitis and abscess: Qualifiers: Appendicitis gangrene presence: with gangrene Appendicitis perforation presence: with perforation Qualified Code(s): K35.211 - Acute appendicitis with generalized peritonitis, with perforation and abscess Code(s): K35.219 - Acute appendicitis with generalized peritonitis, with abscess, unspecified as to perforation Status: Acute Assessment and Plan: * status post laparoscopic appendectomy with drainage of intra abdominal abscess with Dr. Avery * was treated with Zosyn and Flagyl in which they went to monotherapy with just Zosyn immediately postop, he was then transitioned to Augmentin and completed therapy * follow-up with Dr. Avery in 2 weeks (4) DM2 (diabetes mellitus, type 2): Qualifiers: Diabetes mellitus director long term care insulin use: without director long term care use Diabetes mellitus complication status: without complication Qualified Code(s): E11.9 - Type 2 diabetes mellitus without complications Code(s): E11.9 - Type 2 diabetes mellitus without complications Status: Chronic Assessment and Plan: * resume home medications (5) CHF (congestive heart failure): Code(s): I50.9 - Heart failure, unspecified Status: Chronic Assessment and Plan: * last echo was reviewed from 05/18/2018 which shown mildly reduced ejection fraction with an estimated EF of 50%, grade 1 diastolic dysfunction * continue Lasix 20 mg daily (6) Chronic kidney disease: Code(s): N18.9 - Chronic kidney disease, unspecified Status: Chronic Assessment and Plan: * Stable * Monitor renal function * follow-up with primary and nephrology Outpatient (7) Dementia: Qualifiers: Dementia type: unspecified type Dementia severity: moderate Dementia behavioral or psychological symptom: unspecified whether behavioral, psychotic, or mood disturbance or anxiety Qualified Code(s): F03.B0 - Unspecified dementia, moderate, without behavioral disturbance, psychotic disturbance, mood disturbance, and anxiety Code(s): F03.90 - Unspecified dementia, unspecified severity, without behavioral disturbance, psychotic disturbance, mood disturbance, and anxiety Status: Chronic Assessment and Plan: * continue Aricept and Namenda (8) Hyperlipidemia: Code(s): E78.5 - Hyperlipidemia, unspecified Status: Chronic Assessment and Plan: * continue Crestor and aspirin (9) Hypertension: Qualifiers: Hypertension type: primary hypertension Qualified Code(s): I10 - Essential (primary) hypertension Code(s): I10 - Essential (primary) hypertension Status: Chronic Assessment and Plan: * continue to monitor BP at home * No current BP medications * follow-up with primary (10) COPD (chronic obstructive pulmonary disease): Qualifiers: COPD type: unspecified COPD Qualified Code(s): J44.9 - Chronic obstructive pulmonary disease, unspecified Code(s): J44.9 - Chronic obstructive pulmonary disease, unspecified Status: Chronic Assessment and Plan: * continue Ellipta inhaler * continue Claritin (11) ADIS (obstructive sleep apnea): Code(s): G47.33 - Obstructive sleep apnea (adult) (pediatric) Status: Chronic Assessment and Plan: * continue CPAP (12) Depression: Code(s): F32.9 - Major depressive disorder, single episode, unspecified Status: Chronic Assessment and Plan: * continue Celexa Plan Disposition: Discharge to home with home health DS: Summary Hospital Course Reason for hospitalization: Rehabilitation post hospitalization due to ruptured append Hospital Course: patient was a 79-year-old male who was admitted to [facility] for rehabilitation and generalized weakness after hospitalization for ruptured appendix at [facility]. Patient had completed his antibiotics on 08/07/2024. patient still had some generalized weakness and instability when worked with physical and occupational therapy at [facility] so patient was admitted here for continued physical and occupational therapy. patient pr ogressed well and was signed off to return home with wheeled walker. Patient's labs reviewed vital stable at time of discharge patient with no complaints and in no acute distress. patient was discharged home on home medications with home health to continue outpatient PT and OT. Due to patient's deconditioned state, frequent falls and generalized weakness it was determined he would benefit from the use of a wheeled walker at home which was delivered bedside prior to discharge. this ultimately can reduce his likelihood of falls at home he was educated on fall precautions and use of wheeled walker. patient acknowledged and agreed with discharge plan. Status at Discharge Functional status at discharge: uses cane/walker Time Spent with Patient Time attestation: Total time spent providing and/or coordinating discharge services: Time spent: Greater than 30 minutes Exam Narrative: General: In no acute distress, well nourished Head: atraumatic, no encephalopathy Eyes: PERRLA, sclera clear ENT: moist mucous membranes, nasal passages clear Neck: supple, no JVD, no adenopathy, trachea midline Cardiac: Normal S1 and S2. RRR, No murmur, gallops or friction rubs, peripheral pulses intact. Respiratory: Lungs clear to auscultation, no adventitious lung sounds , currently on room air Gastrointestinal: soft, non-distended, non-tender, normoactive bowel sounds. : voiding without difficulty. Extremities: moves all extremities well, no edema Skin: clean, dry, intact. No wounds or lesions. Neuro: Alert and oriented x4, cranial nerves intact, no neuro deficits. Psych: normal mood, normal affect, interactive DS: Data Data Completed and Pending Labs on day of discharge: Labs from last 24 hours 08/14/24 08/13/24 08/13/24 07:52 21:41 17:04 POC Capillary Glucose 115 H 122 H 133 H 08/13/24 11:38 POC Capillary Glucose 133 H Discharge Plan Discharge Attending physician on discharge: Tulio Bhatt Discharging Clinician: Mary Deluna Patient Disposition: Home Health Service Activity: may shower, unlimited and as tolerated Diet: heart healthy Discharge Instructions: * Per Care Coordination: [facility] provide nursing and PT. They will call you the day prior to coming for time and date. You are being discharged to home after rehabilitation post hospitalization after appendix rupture * continue with physical and occupational therapy at home with home health * monitor incisional sites for any symptoms of infection such as worsening redness pain, fever chills or cold-like symptoms * No lifting over 15-20lbs. * May bathe or shower. * Stairs are OK. * please call to schedule follow-up appointment with Dr. Barrera information has been provided below within the next 2 weeks * continue with fall precautions information provided for fall prevention How can you care for yourself at home? ? Keep track of any new symptoms or changes in your symptoms. ? Rest until you feel better. ? Be safe with medicines. Take your medicines exactly as prescribed. Call your doctor if you think you are having a problem with your medicine. ? Do not drive after taking a prescription pain medicine. ? Ensure to follow-up with primary care physician as indicated and provide updated medication list provided to you at discharge. When should you call for help? Call 911 anytime you think you may need emergency care. For example, call if: ? You passed out (lost consciousness). Call your doctor now or seek immediate medical care if: ? You have new symptoms like fever, difficulty breathing, Chest pain, vomiting, or rash. ? You have new or different pain. ? You are confused and are having trouble thinking clearly. ? Your symptoms are getting worse. Watch closely for changes in your health, and be sure to contact your doctor if: ? You do not get better as expected. Patient Instructions: Antibiotic Form, Fall Prevention (DC) Patient Language: Ethiopian Stand Alone Forms: General Discharge Information Follow-up/Referrals: Pete Avery MD [Physician] - 2 weeks Alonzo Campoverde MD [Primary Care Provider] - 4 Weeks Discharge Medications: Continued potassium citrate 10 mEq (1,080 mg) tablet extended release 10 meq PO DAILY oxybutynin chloride 5 mg tablet 5 mg PO TID magnesium oxide 400 mg (241.3 mg magnesium) tablet 400 mg PO BID Anoro Ellipta 62.5-25 mcg/actuation blister with device 1 inh inhalation Q24H Qty: 60 11RF donepezil 10 mg tablet 10 mg PO QHS aspirin 81 mg tablet,delayed release (DR/EC) 81 mg PO DAILY Centrum Silver 400-250 mcg tablet,chewable 1 tablet PO DAILY cranberry fruit 500 mg tablet,chewable 1,000 mg PO DAILY rosuvastatin 20 mg tablet 20 mg PO DAILY memantine [Namenda] 10 mg tablet 10 mg PO Q12H citalopram 10 mg tablet 10 mg PO DAILY Patient Comments: am furosemide 20 mg tablet 20 mg PO DAILY Patient Comments: am loratadine [Claritin] 10 mg Tablet 10 mg PO DAILY polyethylene glycol 3350 [Miralax] 17 gram Powder In Packet 17 g PO QAM Qty: 10 0RF Discontinued amoxicillin-pot clavulanate 875-125 mg tablet 1 tablet PO Q12H Qty: 6 0RF Patient Comments: for 3 more days oxycodone-acetaminophen [Percocet] 5-325 mg tablet 0.5 - 1 tablet PO Q4H PRN (Reason: pain) Qty: 10 0RF Date of admission: 08/07/24 15:13 Primary Care Provider: Alonzo Campoverde Admitting Provider: Tulio Bhatt Attending physician on admission: Mary Deluna Condition: Stable Quality -Patient's previous records reviewed on admission -ER notes reviewed in detail on admission -discussed all findings and current treatment plan with patient/Family/POA -Consultations reviewed for recommendations -Patient's disposition for safe discharge discussed with geriatric case manager Dictation performed by [employer] direct speech recognition software, therefore automobiles salesperson variants and typographical errors may occur. Hospitalist MIPS Heart Failure (Exclusion) Patient has history of Heart Transplant or Left Ventricular Assistive Device?: No IF YES, STOP HERE Heart Failure (Qualifier) Patient has current or prior documentation of LVEF less than or equal to 40%, or mod/servere depressed LVSF?: No IF NO, STOP HERE
[2024-08-14] MEDS: MEMANTINE 5 MG TABLET 10 MG PO (08:54)
[2024-08-14] MEDS: oxyBUTYnin CHLORIDE 5 MG TABLET PO (08:54)
[2024-08-14] MEDS: LORATADINE 10 MG TABLET PO (08:55)
[2024-08-14] MEDS: MAGNESIUM OXIDE 400 MG TABLET PO (08:55)
[2024-08-14] MEDS: FUROSEMIDE 20 MG TABLET PO (08:55)
[2024-08-14] MEDS: ROSUVASTATIN 10 MG TABLET 20 MG PO (08:55)
[2024-08-14] MEDS: ASPIRIN 81 MG ENTERIC TABLET PO (08:55)
[2024-08-14] MEDS: CITALOPRAM HYDROBROMIDE 10 MG TABLET PO (08:55)
[2024-08-14] MEDS: MULTIVITAMINS THERAPEUTIC TAB (*BKC) 1 TABLET PO (08:55)
--- NOTE | 2024-08-14 09:39 | PC.NURSE ---
Sent discharge summary to [facility] @ [phone] per instruction.
--- NOTE | 2024-08-14 10:35 | PC.NURSE ---
Patient discharging home today. All belongings gathered and sent home with patient. All discharge instructions and education reviewed with patient. Patient and both state understanding. Denies any questiosn at this time. Patient accompanied to front door via wheelchair by this nurse. Left via private vehcile with . No IV present at discharge.
--- NOTE | 2024-08-16 13:23 | PC.NURSE ---
Discharge call back completed, some redness at [facility], home health RN saw it and will report to dr flor or dr gan, no questions regarding dc instructions
== END 2024-08-14 10:35 | disposition home health service (06) | DRG 948 ==
PROVIDERS: Nurse Practitioner Acute Care; Admitting Provider Internal Medicine; PCP Internal Medicine; Visit Provider Nurse Practitioner Family
DX: R53.1 Weakness (principal); I13.0 Hypertensive heart and chronic kidney disease with heart failure and stage 1 through stage 4 chronic kidney disease, or unspecified chronic kidney disease; I50.9 Heart failure, unspecified; N18.9 Chronic kidney disease, unspecified; J44.9 Chronic obstructive pulmonary disease, unspecified; E11.9 Type 2 diabetes mellitus without complications; E78.5 Hyperlipidemia, unspecified; R29.6 Repeated falls; G47.33 Obstructive sleep apnea (adult) (pediatric); F03.90 Unspecified dementia, unspecified severity, without behavioral disturbance, psychotic disturbance, mood disturbance, and anxiety; F32.A Depression, unspecified; Z79.82 Long term (current) use of aspirin
CPT/HCPCS: 36415; 80053; 82948; 83735; 85025; 97110; 97161; 97165; 97530; 97535; A9270

== ENCOUNTER 2024-08-21 09:06 | Outpatient (CLI) | payer MEDICARE, SELFPAY ==
--- NOTE | ~2024-08-21 | US_ITS ---
Renal-Bladder ultrasound Clinical History: Left kidney stone Technique: Real-time sonographic imaging of the kidneys and urinary bladder was performed. Findings: The right kidney measures 10.7 cm in length and the left kidney measures 10.9 cm. There is no hydronephrosis. Probable 8 mm nonobstructing left renal stone. Renal cortical echogenicity is with in normal limits. Bilateral renal cysts present. The urinary bladder is moderately distended at the time of this exam. No intraluminal echoes are iden tified. No abnormal wall thickening is seen. Impression: Bilateral renal cysts. 8 mm nonobstructing left renal stone. No hydronephrosis. Reviewed, dictated and finalized at location . ICATIONS ARCHITECT Impression: Bilateral renal cysts. 8 mm nonobstructing left renal stone. No hydronephrosis.
--- NOTE | ~2024-08-21 | XR_ITS ---
Supine and upright views of the abdomen Clinical history: Left kidney stone COMPARISON: 05/28/2024 Findings: Bowel gas pattern is nonspecific. No evidence for obstruction or free air. Probable left re nal stones. Left ureteral stent has been removed. No ureteral stone evident.. Left hip arthroplasty i n place. Aortic stent graft in place. Impression: Left renal stones. Interval removal of left ureteral stent. No left ureteral stones seen. Reviewed, dictated and finalized at location . OVISUAL EQUIPMENT OPERATOR Impression: Left renal stones. Interval removal of left ureteral stent. No left ureteral st ones seen.
== END 2024-08-21 09:07 | disposition home or self-care (01) ==
PROVIDERS: PCP Internal Medicine; Visit Provider Urology
DX: N18.31 Chronic kidney disease, stage 3a (principal); R82.81 Pyuria; N20.0 Calculus of kidney
CPT/HCPCS: 74018; 76770

== ENCOUNTER 2024-09-28 10:01 | Outpatient (CLI) | payer MEDICARE, SELFPAY ==
[2024-09-28 10:16] LABS: Hematocrit 47.8 % (37.0-46.0); Hemoglobin 14.5 g/dL (12.4-15.3); Mean Corpuscular HGB Conc 30.3 g/dL (32-36); Mean Corpuscular Hemoglobin 27.2 pg (27.0-31.0); Mean Corpuscular Volume 89.7 fL (78.0-102.0); Mean Platelet Volume 10.3 fl (8.7-11.0); Platelet Count Result 152 K/mm3 (150-420); Red Blood Count 5.33 M/mm3 (4.70-6.10); Red Cell Distribution Width 14.2 % (11.6-14.4); White Blood Count 8.4 K/mm3 (4.8-10.8)
--- OUTSIDE RECORDS SUMMARY | 2024-09-28 10:46 | XMS_ITS | Clinical Summary ---
Author Organization [facility] Address [address] [place] [id number] Phone Care Team Providers Care Wheel Molder Name Role Phone Alonzo Capmoverde MD Primary Care Provider [phone] Allergies No known active allergies Medications Medication Sig Dispensed Refills Start Date End Date Status loratadine (CLARITIN) 10 MG tablet 1 daily 0 10/22/2016 Active memantine (NAMENDA) 10 MG tablet 1 daily 0 01/12/2018 Active Multiple Vitamin (MULTIVITAMIN) capsule 1 daily 0 10/22/2016 Active rosuvastatin (CRESTOR) 20 MG tablet 1 dialy 0 06/21/2018 Active aspirin (ASPIR-LOW) 81 MG EC tablet 1 daily 0 10/22/2016 Active citalopram (CeleXA) 40 MG tablet 10/31/2019 Active Fluticasone-Umeclidin -Vilant 100-62.5-25 MCG/INH aerosol powder Inhale Active albuterol HFA (PROVENTIL HFA) 108 (90 Base) MCG/ACT inhaler 06/17/2020 Active clopidogrel (PLAVIX) 75 MG tablet 04/07/2020 Active metoprolol succinate XL (TOPROL-XL) 50 MG 24 hr tablet 06/15/2020 Active furosemide (LASIX) 40 MG tablet Take 40 mg by mouth 2 (two) times a day Active Potassium Citrate (UROCIT-K 10 PO) Take by mouth 3 (three) times a day Active Vibegron (Gemtesa) 75 MG tablet Take by mouth Active donepezil (ARICEPT) 10 MG tablet 03/28/2022 Active magnesium oxide 400 (240 Mg) MG tablet TAKE ONE TABLET BY MOUTH DAILY 30 tablet 11 08/02/2022 Active Active Problems Problem Noted Date Diagnosed Date History of placement of stent for coronary arter y disease 09/07/2021 Coronary arteriosclerosis 06/20/2020 Stage 3a chronic kidney disease 12/26/2019 Calculus of kidney 10/25/2016 Abdominal aortic aneurysm without rupture 2016 Dyslipidemia 10/25/2016 Immunizations Name Administration Dates Next Due Influenza TIV (IM) 06/05/2022,05/06/2021, 020 Pneumococcal Conjugate 04/22/2019 Family History Medical History Relation Comments Heart disease Father Kidney disease Neg Hx Kidney stone Neg Hx Relation Status Comments Father Social History Tobacco Use Types Packs/Day Years Used Date Smoking Tobacco: Former Smokeless Tobacco: Never Alcohol Use Standard Drinks/Week Comments No 0 (1 standard drink = 0.6 oz pur e alcohol) AUDIT-C Answer Date Recorded Frequency of Alcohol Consumption Never 12/15/2018 Average Number of Drinks Not on file 019 Frequency of Binge Drinking Not on file 11/21 Sex and Gender Information Value Date Recorded Sex Assigned at Not on file Gender Identity Not on file Sexual Orientation Not on file Last Filed Vital Signs Vital Sign Reading Time Taken Comments Blood Pressure 128/70 06/23/2022 1:22 PM CDT Pulse 60 06/23/2022 1:22 PM CDT Temperature 36.4 C (97.6 F) 06/23/2022 1:22 PM CDT Respiratory Rate - - Oxygen Saturation - - Inhaled Oxygen Concentration - - Weight 117 kg (259 lb) 06/23/2022 1:22 PM CDT Height 182.9 cm (6') 06/23/2022 1:22 PM CDT Body Mass Index 35.13 06/23/2022 1:22 PM CDT Plan of Treatment Health Maintenance Due Date Last Done Comments Pneumococcal PPSV23/PCV13 65 + Years / High and Highest Risk (1 of 4 - PCV) 01/27/1951 Influenza Vaccine (#1) 2024 , 05/06/2021, 05/22/2020 Care Teams Wheel Molder Relationship Specialty Start Date End Date Alonzo Campoverde MD [address] [place] [address] PCP - General Internal Medicine 06/25/20
--- OUTSIDE RECORDS SUMMARY | 2024-09-28 10:46 | XMS_ITS | Referral Summary ---
Author Organization [facility] Address [address] [place] [address] Care Team Providers Care Block Breaker Operator Name Role Phone Mariam Esteban MD Primary Care Provider [phone] Allergies No known active allergies Medications rosuvastatin (CRESTOR) 20 mg tablet Take 1 tablet (20 mg total) by mouth daily 3 Active metoprolol XL (TOPROL-XL) 50 mg extended release tablet Take 0.5 tablets (25 mg total) by mouth daily 2 Active memantine (NAMENDA) 10 mg tablet Take 1 tablet (10 mg total) by mouth 2 (two) times a day 3 Active magnesium oxide (MAG-OX) 400 mg (241.3 mg elemental magnesium) tablet Take 1 tablet (400 mg total) by mouth daily 3 Active furosemide (LASIX) 40 mg tablet Take 1 tablet (40 mg total) by mouth 2 (two) times a day 3 Active aspirin 81 mg enteric coated tablet Take 80 mg by mouth daily 7 Active potassium citrate ER (UROCIT-K) 10 mEq (1,080 mg) CR tablet Take by mouth 3 (three) times a day Active multivit-min/FA/ lycopen/lutein (CENTRUM SILVER ULTRA MEN'S ORAL) Take 1 tablet by mouth daily 8 Active umeclidinium-marguerite anteroL (ANORO ELLIPTA) 62.5-25 mcg/actuation blister with device Inhale Active oxyBUTYnin (DITROPAN) 5 mg tablet Take 1 tablet (5 mg total) by mouth 3 (three) times a day 3 Active Rybelsus 3 mg tablet Take 1 tablet (3 mg total) by mouth professor of early childhood education before breakfast 3 Active nitrofurantoin monohydrate (MACROBID) 100 mg capsule TAKE 1 CAPSULE BY MOUTH EVERY 12 HOURS WITH FOOD 4 Active sulfamethoxazole -trimethoprim (BACTRIM DS) 800-160 mg per tablet Take 1 tablet by mouth every 12 (twelve) hours 4 Active donepeziL (ARICEPT) 10 mg tablet TAKE 1 TABLET BY MOUTH EVERYDAY AT BEDTIME 90 tablet 3 4 Active Active Problems Problem Noted Date Diagnosed Date Alzheimer's disease with late onset 03/21/2023 Primary hypertension 12/01/2022 Assessment & Plan (12/07/2023 9:59 AM CDT): Stable on metoprolol 50 mg. Assessment & Plan (12/01/2022 10:57 AM CDT): Stable continue metoprolol 50 mg. Sleep apnea 10/18/2022 Presence of coronary angioplasty implant and gra ft 09/07/2021 Arteriosclerosis of coronary artery 06/20/2020 Assessment & Plan (10/19/2022 1:02 PM APPLICATION SYSTEMS ENGINEER): Stable continue ASA 81 mg. Stage 3a chronic kidney disease 12/26/2019 Hyperlipidemia 12/15/2016 Assessment & Plan (12/01/2022 10:57 AM CDT): Stable continue Crestor 20 mg. Assessment & Plan (10/19/2022 1:02 PM APPLICATION SYSTEMS ENGINEER): Stable continue Crestor 20 mg. DUGAN (dyspnea on exertion) 11/20/2016 Abdominal aortic aneurysm (AAA) without rupture 10/25/2016 Assessment & Plan (12/07/2023 9:59 AM CDT): Patent endovascular abdominal aortic aneurysms repair with stable 4.2 cm aneurysms, no evidence of endoleak. Continue ongoing surveillance with repeat aortoiliac duplex in 1 year. Assessment & Plan (12/01/2022 10:57 AM CDT): AAA status post EVAR with no evidence of endoleak. Continue ongoing surveillance with repeat aortoiliac duplex in 1 year. Assessment & Plan (10/19/2022 1:03 PM APPLICATION SYSTEMS ENGINEER): Status post EVAR with an Endologix stent graft by Dr. Schwartz at [facility] with a right groin cutdown, has been doing well since his aneurysm repair. CTA abdomen pelvis ordered for surveillance. We will follow-up after further imaging. Calculus of kidney 10/25/2016 Dyslipidemia 10/25/2016 Assessment & Plan (12/07/2023 9:59 AM CDT): Stable continue Crestor 20 mg. Social History Tobacco Use Types Packs/Day Years Used Date Smoking Tobacco: Never Passive Smoke Exposure: Never Smokeless Tobacco: Never Tobacco Cessation:Counseling Given: Not Answered Sex and Gender Information Value Date Recorded Sex Assigned at Not on file Legal Sex Male 12:19 AM APPLICATION SYSTEMS ENGINEER Gender Identity Not on file Sexual Orientation Not on file Last Filed Vital Signs Vital Sign Reading Time Taken Comments Blood Pressure 117/74 03/21/2024 11:37 AM CDT Pulse 56 03/21/2024 11:37 AM CDT Temperature - - Respiratory Rate 18 03/21/2024 11:3 7 AM CDT Oxygen Saturation 97% 03/21/2024 11: 37 AM CDT Inhaled Oxygen Concentration - - Weight 102.8 kg (226 lb 9.6 oz) 024 11:37 AM CDT Height 185.4 cm (6' 1 ) 03/21/2024 11:3 7 AM CDT Body Mass Index 29.9 03/21/2024 11:37 AM CDT Plan of Treatment Not on file Insurance MEDICARE MEDICARE [facility] Care Teams Block Breaker Operator Relationship Specialty Start Date End Date Mariam Esteban MD [address] [place] [address] PCP - General 11/28/12
--- OUTSIDE RECORDS SUMMARY | 2024-09-28 10:46 | XMS_ITS | Clinical Summary ---
Author Organization Unknown Care Team Providers Care Electronic Gluer Name Role Phone LEIGH ANN SANDS Unavailable Unavailable TRACY PHYSICAL THERAPIST, LINDA Unavailabl e Unavailable LUZ TRADING ASSISTANT, MARGARITA Unavail able Unavailable TIA REGISTERED NURSE, RANDAL Unavailable Unavailable Payers Payer Name Policy Type Policy Number Effective Date Expira tion Date MEDICARE [place] - EPISODIC [id number] Problems Condition Name Condition Details Condition Category Status Onset Date Resolution Date Last Treatment Date Treating Clinician Comments UNSP DEMENTIA, UNSPECIFIED SEVERITY, WITH MOOD DISTURB Active 08-22 00:00: 00 DEPRESSION, UNSPECIFIED Active 08-22 00:00: 00 ENCNTR FOR SURGICAL AFTCR FOLLOWING SURGERY ON THE DGSTV SYS Active 08-22 00:00: 00 CHRONIC OBSTRUCTIVE PULMONARY DISEASE, UNSPECIFIED Active 08-22 00:00: 00 TYPE 2 DIABETES MELLITUS WITHOUT COMPLICATION S Active 08-22 00:00: 00 HYP HRT AND CHR KDNY DIS W HRT FAIL AND STG 1-4/UNSP CHR KDNY Active 08-22 00:00: 00 HEART FAILURE, UNSPECIFIED Active 08-22 00:00: 00 CHRONIC KIDNEY DISEASE, UNSPECIFIED Active 08-22 00:00: 00 HYPERLIPIDEM IA, UNSPECIFIED Active 08-22 00:00: 00 OBSTRUCTIVE SLEEP APNEA (ADULT) (PEDIATRIC) Active 08-22 00:00: 00 UNSPECIFIED URINARY INCONTINENCE Active 08-22 00:00: 00 Obesity, class 1 Active 08-22 00:00: 00 BODY MASS INDEX [BMI] 31.0-31.9, ADULT Active 08-22 00:00: 00 RN CORRECTIONS (CURRENT) USE OF ASPIRIN Active 08-22 00:00: 00 RN CORRECTIONS (CURRENT) USE OF ORAL HYPOGLYCEMIC DRUGS Active 08-22 00:00: 00 PERSONAL HISTORY OF URINARY (TRACT) INFECTIONS Active 08-22 00:00: 00 PRESENCE OF PROSTHETIC HEART VALVE Active 08-22 00:00: 00 HISTORY OF FALLING Active 08-22 00:00: 00 Allergies, Adverse Reactions, Alerts Allergy Name Allergy Type Status Severity Reaction(s) Onset Date Inactive Date Treating Clinician Comments NO KNOWN ALLERGIES Propensity to adverse reactions Active 2023-08 07:56: 57 Medications Ordered Medication Name Filled Medication Name Start Date Stop Date Current Medication? Ordering Clinician Indication Dosage Frequency Signature (SIG) Comments Components Anoro Ellipta 62.5 mcg-25 mcg/actuati on powder for inhalation 2023-08 00:00: 00 Yes [id number] COPD 1 inhalat ion ONCE DAILY 1 inhalation ONCE DAILY (route: inhalation ) Med Classific ation: Respirato ry Therapy Agents Aspirin Childrens 81 mg chewable tablet 2023-08 00:00: 00 Yes [id number] BLOOD CLOT PREVENTION 1 tablet ONCE DAILY 1 tablet ONCE DAILY (route: oral) Med Classific ation: Hematolog ical Agents Centrum Silver 400 mcg-250 mcg chewable tablet 2023-08 00:00: 00 Yes [id number] SUPPLEMENT 1 tablet ONCE DAILY 1 tablet ONCE DAILY (route: oral) Med Classific ation: Electroly te Balance-N utritiona l Products citalopram 10 mg tablet 2023-08 00:00: 00 Yes [id number] MOOD 1 tablet ONCE DAILY 1 tablet ONCE DAILY (route: oral) Med Classific ation: Central Nervous System Agents cranberry fruit 500 mg chewable tablet 2023-08 00:00: 00 Yes [id number] SUPPLEMENT 2 tablet ONCE DAILY 2 tablet ONCE DAILY (route: oral) Med Classific ation: Alternati ve Therapy donepezil 10 mg tablet 2023-08 00:00: 00 Yes [id number] DEMENTIA 1 tablet ONCE DAILY 1 tablet ONCE DAILY (route: oral) Med Classific ation: Cognitive Disorder Therapy furosemide 20 mg tablet 2023-08 00:00: 00 Yes [id number] EDEMA 1 tablet ONCE DAILY 1 tablet ONCE DAILY (route: oral) Med Classific ation: Cardiovas cular Therapy Agents loratadine 10 mg capsule 2023-08 00:00: 00 Yes [id number] ALLERGIES 1 capsule ONCE DAILY 1 capsule ONCE DAILY (route: oral) Med Classific ation: Respirato ry Therapy Agents magnesium 400 mg (as magnesium oxide) capsule 2023-08 00:00: 00 Yes [id number] SUPPLEMENT 1 capsule TWICE DAILY 1 capsule TWICE DAILY (route: oral) Med Classific ation: Electroly te Balance-N utritiona l Products memantine 10 mg tablet 2023-08 00:00: 00 Yes [id number] DEMENTIA 1 tablet TWICE DAILY 1 tablet TWICE DAILY (route: oral) Med Classific ation: Cognitive Disorder Therapy oxybutynin chloride 5 mg tablet 2023-08 00:00: 00 Yes [id number] BLADDER CONTROL 1 tablet 3 TIMES DAILY 1 tablet 3 TIMES DAILY (route: oral) Med Classific ation: Genitouri nary Therapy oxycodone-a cetaminophe n 5 mg-325 mg tablet 2023-08 00:00: 00 Yes [id number] PAIN 0.5-1 tablet EVERY 4 HOURS 0.5-1 tablet EVERY 4 HOURS (route: oral) Med Classific ation: Analgesic , Anti-infl ammatory or Antipyret ic potassium chloride ER 10 mEq capsule,ext ended release 2023-08 00:00: 00 Yes [id number] HYPOKALEMIA 1 capsule ONCE DAILY 1 capsule ONCE DAILY (route: oral) Med Classific ation: Electroly te Balance-N utritiona l Products rosuvastati n 20 mg tablet 2023-08 00:00: 00 Yes [id number] HIGH CHOLESTEROL 1 tablet ONCE DAILY 1 tablet ONCE DAILY (route: oral) Med Classific ation: Cardiovas cular Therapy Agents Rybelsus 3 mg tablet 2023-08 00:00: 00 Yes [id number] DIABETES MELLITUS 1 tablet DIRECTED 1 tablet DIRECTED (route: oral) Med Classific ation: Endocrine Immunizations Ordered Immunization Name Filled Immunization Name Date Status Comments Refusal Reason COVID-19 MONOVALENT, MRNA 2024-06-18 00:00:00 INFLUENZA, TIV (INACTIVATED) 2024-06-18 00:00:00 INFLUENZA, TIV (INACTIVATED) 2024-06-14 00:00:00 PNEUMOCOCCAL (PPV), PPV 2023-07-18 00:00:00 PNEUMOCOCCAL (PPV), PPV 2023-06-15 00:00:00 Vital Signs Vital Name Observation Time Observation Value Commen ts Temperature 2024-09-26 15:35:00.000 97.5 [degF] Temperature 2024-09-24 14:42:00.000 97.9 [degF] Temperature 2024-09-17 13:15:00.000 97.7 [degF] Temperature 2024-09-14 15:11:00.000 97 [degF] Temperature 2024-09-13 13:18:00.000 97.3 [degF] Temperature 2024-09-04 14:09:00.000 97.8 [degF] Temperature 2024-08-30 13:55:00.000 97.8 [degF] Temperature 2024-08-28 14:10:00.000 97.8 [degF] Temperature 2024-08-21 11:56:00.000 98.1 [degF] Temperature 2024-08-20 15:25:00.000 97.3 [degF] Temperature 2024-08-16 10:15:00.000 97.3 [degF] BMI (%) 2024-08-16 10:15:00.000 31 kg/m2 Height 2024-08-16 10:15:00.000 73 [in_us] Pulse 2024-09-26 15:35:00.000 51 /min Pulse 2024-09-24 14:42:00.000 62 /min Pulse 2024-09-17 13:15:00.000 72 /min Pulse 2024-09-14 15:11:00.000 53 /min Pulse 2024-09-13 13:18:00.000 66 /min Pulse 2024-09-04 14:09:00.000 64 /min Pulse 2024-08-30 13:55:00.000 62 /min Pulse 2024-08-28 14:10:00.000 68 /min Pulse 2024-08-21 11:56:00.000 60 /min Pulse 2024-08-20 15:25:00.000 65 /min Pulse 2024-08-16 10:15:00.000 68 /min O2 Saturation (%) 2024-09-26 15:35:00.000 94 % O2 Saturation (%) 2024-09-24 14:42:00.000 95 % O2 Saturation (%) 2024-09-17 13:15:00.000 97 % O2 Saturation (%) 2024-09-14 15:11:00.000 94 % O2 Saturation (%) 2024-09-13 13:18:00.000 95 % O2 Saturation (%) 2024-09-04 14:09:00.000 99 % O2 Saturation (%) 2024-08-30 13:55:00.000 98 % O2 Saturation (%) 2024-08-28 14:10:00.000 97 % O2 Saturation (%) 2024-08-21 11:56:00.000 95 % O2 Saturation (%) 2024-08-20 15:25:00.000 98 % O2 Saturation (%) 2024-08-16 10:15:00.000 98 % Respirations 2024-09-26 15:35:00.000 16 /min Respirations 2024-09-24 14:42:00.000 16 /min Respirations 2024-09-17 13:15:00.000 18 /min Respirations 2024-09-14 15:11:00.000 16 /min Respirations 2024-09-13 13:18:00.000 18 /min Respirations 2024-09-04 14:09:00.000 18 /min Respirations 2024-08-30 13:55:00.000 18 /min Respirations 2024-08-28 14:10:00.000 18 /min Respirations 2024-08-21 11:56:00.000 16 /min Respirations 2024-08-20 15:25:00.000 18 /min Respirations 2024-08-16 10:15:00.000 20 /min Weight (lbs) 2024-09-14 15:16:00.000 221 [lb_av] Weight (lbs) 2024-08-30 13:55:00.000 219.4 [lb_av] Weight (lbs) 2024-08-16 10:15:00.000 240 [lb_av] Systolic Blood Pressure 2024-09-26 15:35:00.000 130 mm [Hg] Systolic Blood Pressure 2024-09-24 14:42:00.000 136 mm [Hg] Systolic Blood Pressure 2024-09-17 13:15:00.000 134 mm [Hg] Systolic Blood Pressure 2024-09-14 15:11:00.000 118 mm [Hg] Systolic Blood Pressure 2024-09-13 13:18:00.000 116 mm [Hg] Systolic Blood Pressure 2024-09-04 14:09:00.000 134 mm [Hg] Systolic Blood Pressure 2024-08-30 13:55:00.000 122 mm [Hg] Systolic Blood Pressure 2024-08-28 14:10:00.000 138 mm [Hg] Systolic Blood Pressure 2024-08-21 11:56:00.000 138 mm [Hg] Systolic Blood Pressure 2024-08-20 15:25:00.000 118 mm [Hg] Systolic Blood Pressure 2024-08-16 10:15:00.000 126 mm [Hg] Diastolic Blood Pressure 2024-09-26 15:35:00.000 80 mm [Hg] Diastolic Blood Pressure 2024-09-24 14:42:00.000 76 mm [Hg] Diastolic Blood Pressure 2024-09-17 13:15:00.000 68 mm [Hg] Diastolic Blood Pressure 2024-09-14 15:11:00.000 70 mm [Hg] Diastolic Blood Pressure 2024-09-13 13:18:00.000 60 mm [Hg] Diastolic Blood Pressure 2024-09-04 14:09:00.000 78 mm [Hg] Diastolic Blood Pressure 2024-08-30 13:55:00.000 74 mm [Hg] Diastolic Blood Pressure 2024-08-28 14:10:00.000 74 mm [Hg] Diastolic Blood Pressure 2024-08-21 11:56:00.000 80 mm [Hg] Diastolic Blood Pressure 2024-08-20 15:25:00.000 62 mm [Hg] Diastolic Blood Pressure 2024-08-16 10:15:00.000 64 mm [Hg] Plan of Treatment Planned Activity Planned Date Details Comments Future Scheduled Test HOME HEALT H NURSE WILL INSTRUCT THE PATIENT/CAREGIVER ABOUT DEMENTIA INCLUDING CHARACTERISTICS OF DISEASE PROCESS, POSSIBLE COMPLICATIONS, AND SAFETY MEASURES ASSOCIATED WITH ALTERED MENTAL STATUS. [code = HOME HEALTH NURSE WILL INSTRUCT THE PATIENT/CAREGIVER ABOUT DEMENTIA INCLUDING CHARACTERISTICS OF DISEASE PROCESS, POSSIBLE COMPLICATIONS, AND SAFETY MEASURES ASSOCIATED WITH ALTERED MENTAL STATUS.] Future Scheduled Test SKILLED NU RSE TO OBSERVE AND ASSESS PATIENT WITH GENERALIZED DEPRESSION AND TEACH DEPRESSIVE SYMPTOMS. [code = SKILLED NURSE TO OBSERVE AND ASSESS PATIENT WITH GENERALIZED DEPRESSION AND TEACH DEPRESSIVE SYMPTOMS. ] Future Scheduled Test THE CER TIFYING PHYSICIAN, ASSOCIATED PHYSICIAN, NPP OR PA WITHIN THE SAME GROUP MAY APPROVE AND SIGN THE ORDER (ON ANY PAGE) ATTESTING THAT THE COMPREHENSIVE OUTCOME ASSESSMENTS, EVALUATIONS, AND HOME HEALTH CERTIFICATION PLANS SUPPORT HOMEBOUND STATUS. HOME HEALTH WEB-PORTAL DOCUMENTATION ACCESSED BY THE PHYSICIAN MUST BE INCORPORATED INTO THE MEDICAL RECORD TO CORROBORATE THE PHYSICIAN, NPP, OR PAS F2F ENCOUNTER TO SUPPORT ELIGIBILITY FOR HOME HEALTH SERVICES. [code = THE CERTIFYING PHYSICIAN, ASSOCIATED PHYSICIAN, NPP OR PA WITHIN THE SAME GROUP MAY APPROVE AND SIGN THE ORDER (ON ANY PAGE) ATTESTING THAT THE COMPREHENSIVE OUTCOME ASSESSMENTS, EVALUATIONS, AND HOME HEALTH CERTIFICATION PLANS SUPPORT HOMEBOUND STATUS. HOME HEALTH WEB-PORTAL DOCUMENTATION ACCESSED BY THE PHYSICIAN MUST BE INCORPORATED INTO THE MEDICAL RECORD TO CORROBORATE THE PHYSICIAN, NPP, OR PAS F2F ENCOUNTER TO SUPPORT ELIGIBILITY FOR HOME HEALTH SERVICES.] Future Scheduled Test EACH ORDER ED IN-HOME OR TELEHEALTH VISIT, THE SKILLED NURSE WILL CONDUCT A COMPREHENSIVE ASSESSMENT INCLUDING VITAL SIGNS, PAIN, SAFETY, MENTAL/COGNITIVE/PSYCHOSOCIAL STATUS, MED MANAGEMENT, NUTRITION, SKIN INTEGRITY, PRESSURE ULCER PREVENTION, AND PATIENT/CAREGIVER ABILITY TO SUPPORT ORDERED CARE. SKILLED NURSE WILL INSTRUCT ON DISEASE PROCESS, MED MGMT., FALL PREVENTION AND SAFETY, INFECTION CONTROL AND PREVENTION, WARNING SIGNS, ADDRESS RESULTS OUTSIDE OF ORDERED PARAMETERS LISTED ON CARE PLAN, AND COORDINATE DISCHARGE WITH THE TREATING PROVIDER. MAY ACCEPT ORDERS FROM THE FOLLOWING PROVIDER(S) WHO WILL BE CONSULTING ON THE CERTIFIED CARE PLAN: DR SANDS-PCP, DR PEREZ-SURGEON, DR MALDONADO-CARDIOLOGY, DR FENTON-NEUROLOGY, DR EAST, DR SHRESTHA-UROLOGY, DR BOATENG-NEPHROLOGY AND ANYONE COVERING IN THEIR ABSENCE. [code = EACH ORDERED IN-HOME OR TELEHEALTH VISIT, THE SKILLED NURSE WILL CONDUCT A COMPREHENSIVE ASSESSMENT INCLUDING VITAL SIGNS, PAIN, SAFETY, MENTAL/COGNITIVE/PSYCHOSOCIAL STATUS, MED MANAGEMENT, NUTRITION, SKIN INTEGRITY, PRESSURE ULCER PREVENTION, AND PATIENT/CAREGIVER ABILITY TO SUPPORT ORDERED CARE. SKILLED NURSE WILL INSTRUCT ON DISEASE PROCESS, MED MGMT., FALL PREVENTION AND SAFETY, INFECTION CONTROL AND PREVENTION, WARNING SIGNS, ADDRESS RESULTS OUTSIDE OF ORDERED PARAMETERS LISTED ON CARE PLAN, AND COORDINATE DISCHARGE WITH THE TREATING PROVIDER. MAY ACCEPT ORDERS FROM THE FOLLOWING PROVIDER(S) WHO WILL BE CONSULTING ON THE CERTIFIED CARE PLAN: DR SANDS-PCP, DR PEREZ-SURGEON, DR MALDONADO-CARDIOLOGY, DR FENTON-NEUROLOGY, DR EAST, DR SHRESTHA-UROLOGY, DR BOATENG-NEPHROLOGY AND ANYONE COVERING IN THEIR ABSENCE. ] Future Scheduled Test [facility] WILL TEACH PATIENT/CAREGIVER ABOUT HEART FAILURE, EDEMA, AND HOW TO WEIGH DAILY AT THE SAME TIME EVERY MORNING AFTER URINATING AND BEFORE BREAKFAST. INSTRUCT PATIENT TO CHECK FOR WEIGHT GAIN CAUSED BY INCREASED FLUID AND CONTACT THE PHYSICIAN 2IF 2LBS WEIGHT GAIN IN 1 DAY OR 5LBS WEIGHT GAIN IN 1 WEEK. HOME HEALTH RN TO TEACH PATIENT ABOUT WARNING SIGNS TO CONTACT THE AGENCY, PHYSICIAN, OR 911. MAY ADD 2 PRN VISITS PER MONTH FOR SIGNS/SYMPTOMS OF EXACERBATION SUCH INCREASED EDEMA, WEIGHT GAIN, SHORTNESS OF BREATH, OR FATIGUE. [code = HOME HEALTH NURSE WILL TEACH PATIENT/CAREGIVER ABOUT HEART FAILURE, EDEMA, AND HOW TO WEIGH DAILY AT THE SAME TIME EVERY MORNING AFTER URINATING AND BEFORE BREAKFAST. INSTRUCT PATIENT TO CHECK FOR WEIGHT GAIN CAUSED BY INCREASED FLUID AND CONTACT THE PHYSICIAN 2IF 2LBS WEIGHT GAIN IN 1 DAY OR 5LBS WEIGHT GAIN IN 1 WEEK. HOME HEALTH RN TO TEACH PATIENT ABOUT WARNING SIGNS TO CONTACT THE AGENCY, PHYSICIAN, OR 911. MAY ADD 2 PRN VISITS PER MONTH FOR SIGNS/SYMPTOMS OF EXACERBATION SUCH INCREASED EDEMA, WEIGHT GAIN, SHORTNESS OF BREATH, OR FATIGUE.] Future Scheduled Test [facility] WILL INSTRUCT ABOUT COPD, APPROPRIATE BREATHING TECHNIQUES, STRATEGIES TO MANAGE COPD TO PREVENT EXACERBATIONS, STRATEGIES TO PROMOTE SLEEP, USE OF A COPD ACTION PLAN, AND WARNING SIGNS TO CALL THE AGENCY, TREATING PROVIDER, OR 911. [code = HOME HEALTH NURSE WILL INSTRUCT ABOUT COPD, APPROPRIATE BREATHING TECHNIQUES, STRATEGIES TO MANAGE COPD TO PREVENT EXACERBATIONS, STRATEGIES TO PROMOTE SLEEP, USE OF A COPD ACTION PLAN, AND WARNING SIGNS TO CALL THE AGENCY, TREATING PROVIDER, OR 911.] Future Scheduled Test SKILLED NU RSE TO ASSESS PATIENT WITH ANXIETY DISORDER AND TEACH SYMPTOMS OF ANXIETY. [code = SKILLED NURSE TO ASSESS PATIENT WITH ANXIETY DISORDER AND TEACH SYMPTOMS OF ANXIETY.] Future Scheduled Test HOME HEALT H NURSE WILL INSTRUCT PATIENT/CAREGIVER ON TYPE 2 DIABETES DISEASE PROCESS, HOW TO CREATE A DIABETIC TOOLKIT TO MANAGE INVENTORY OF SUPPLIES, HOW TO PLAN FOR A SICK-DAY, AND WARNING SIGNS WHEN THE PATIENT EXPERIENCES LOW BLOOD SUGAR. [code = HOME HEALTH NURSE WILL INSTRUCT PATIENT/CAREGIVER ON TYPE 2 DIABETES DISEASE PROCESS, HOW TO CREATE A DIABETIC TOOLKIT TO MANAGE INVENTORY OF SUPPLIES, HOW TO PLAN FOR A SICK-DAY, AND WARNING SIGNS WHEN THE PATIENT EXPERIENCES LOW BLOOD SUGAR.] Future Scheduled Test HOME HEALT H NURSE TO INSTRUCT ON URINARY TRACT INFECTION, PREVENTION, SYMPTOMS AND WHEN TO REPORT TO THE AGENCY, PHYSICIAN, OR 911. [code = HOME HEALTH NURSE TO INSTRUCT ON URINARY TRACT INFECTION, PREVENTION, SYMPTOMS AND WHEN TO REPORT TO THE AGENCY, PHYSICIAN, OR 911.] Future Scheduled Test HOME HEALT H NURSE WILL ASSESS FOR COMPLICATIONS RELATED TO ANTICOAGULATION ANTIPLATELET USE AND INSTRUCT PATIENT/CAREGIVER ABOUT PRECAUTIONS TO FOLLOW AND SIGNS/SYMPTOMS TO REPORT. [code = HOME HEALTH NURSE WILL ASSESS FOR COMPLICATIONS RELATED TO ANTICOAGULATION ANTIPLATELET USE AND INSTRUCT PATIENT/CAREGIVER ABOUT PRECAUTIONS TO FOLLOW AND SIGNS/SYMPTOMS TO REPORT. ] Goal Patient Goal - 1 10/17/23 SOC: TO STAY OUT OF THE HOSPITAL Goal Provider Goal - PATIENT/CAREGIVER WILL DEMONSTRATE REDUCED SUBJECTIVE LEVELS OF STRESS AND DEMONSTRATE INCREASED SAFETY IN THE HOME WITH MAXIMAL FUNCTIONAL TASK ENGAGEMENT BY END OF EPISODE. Goal Provider Goal - PATIENT/CAREGIVER WILL VERBALIZE UNDERSTANDING OF THE CONTRIBUTING FACTORS AND SYMPTOMS OF DEPRESSION. Goal Provider Goal - A PLAN OF CARE WILL BE ESTABLISHED THAT MEETS ALL PATIENT'S FCI NEEDS AND COUNTER SIGNED BY PHYSICIAN. Goal Provider Goal - PATIENT WILL BE FREE OF FALLS AND HOSPITALIZATIONS THROUGHOUT EPISODE OF CARE. PATIENT/CAREGIVER WILL UNDERSTAND AND ADHERE TO ORDERED DIET. PATIENT/CAREGIVER WILL INDEPENDENTLY MANAGE MEDICATIONS, UNDERSTAND ANY CHANGES, SIDE EFFECTS TO REPORT BY EOE. PATIENT WILL BE FREE OF INFECTION AND UNDERSTAND MEASURES OF PREVENTION. PATIENT/CAREGIVER WILL COLLABORATE WITH SKILLED NURSE TO DEVELOP POC AT SOC AND ON AN ONGOING BASIS UPDATES ARE NEEDED. UNDERSTAND PROGRESS MADE/DISCHARGE PLANNING. ADDITIONAL ORDERS WILL BE RECEIVED FROM ALTERNATE PHYSICIANS IN A TIMELY MANNER. Goal Provider Goal - PATIENT/CAREGIVER WILL DEMONSTRATE AND ADHERE TO WEIGHING DAILY WITH THE USE OF TRACKING LOG. PATIENT WILL VERBALIZE WAYS TO MONITOR FLUID OVERLOAD FROM OWN QUALITY OF SLEEP, EDEMA, TIGHT-FITTING CLOTHES, QUALITY OF BREATHING, AND CHANGES IN FEELING MORE TIRED OR WEEK BY THE END OF HOME HEALTH SERVICES. Goal Provider Goal - PATIENT/CAREGIVER WILL DEMONSTRATE WILLINGNESS TO COLLABORATE AND CREATE A COPD ACTION PLAN, VERBALIZE UNDERSTANDING OF STRATEGIES TO PREVENT EXACERBATIONS, AND VERBALIZE WARNING SIGNS AND WHEN TO CONTACT THE TREATING PROVIDER OR 911 UPON THE END OF HOME HEALTH SERVICES. Goal Provider Goal - PATIENT/CAREGIVER WILL VERBALIZE UNDERSTANDING OF THE CONTRIBUTING FACTORS AND SYMPTOMS OF ANXIETY. Goal Provider Goal - PATIENT/CAREGIVER WILL VERBALIZE UNDERSTANDING OF TYPE 2 DIABETES AND THE IMPORTANCE OF MANAGING THE BLOOD SUGAR WITHIN THE EXPECTED RANGE. PATIENT/CAREGIVER WILL ESTABLISH A DIABETIC TOOLKIT AND A SICK-DAY PLAN TO PREPARE FOR POTENTIAL CHANGES WITH BLOOD SUGARS RANGES. PATIENT/CAREGIVER WILL VERBALIZE WARNING SIGNS OF LOW BLOOD SUGAR AND WHAT ACTIONS TO TAKE. Goal Provider Goal - PATIENT/CAREGIVER WILL INDEPENDENTLY VERBALIZE WAYS TO PREVENT A UTI AND VERBALIZE SYMPTOMS TO REPORT TO THE PHYSICIAN BY THE END OF HOME HEALTH SERVICES. Goal Provider Goal - PATIENT/CAREGIVER WILL VERBALIZE UNDERSTANDING OF ANTICOAGULATION ANTIPLATELET COMPLICATIONS TO REPORT AND PRECAUTIONS TO FOLLOW BY END OF HOME HEALTH SERVICES. Progress Notes Progress Notes <paragraph>[Visit Date: 2024 by RANDAL WEBER REGISTERED NURSE]:</paragraph><paragraph>PTNT BEING SEEN FOR DEMENTIA. PTNT OPENED DOOR FOR THIS RN. PTNT USING CANE TODAY AND HOLDING DOG ON LEASH. PTNT WALKED SLOWLY WITH STEADY GAIT TO SUN ROOM FOR VISIT. PTNT REPORTS WENT SOMEWEHRE BUT CANNOT REMEMBER WHERE BUT SHE SHOULD BE HOME SHORTLY. PTNT PCP APPT WAS MOVED TO 09/28/24. VS WNL EXCEPT HEART RATE AND MD IS AWARE OF THIS. PTNT REPORTS NOT WEARING HIS CPAP ORDERED BECAUSE HE FORGETS OR DOESNT FEEL LIKE WEARING IT. HAS BEEN ENCOURAGING HIM TO WEAR IT. THIS RN EDUCATED ON DAILY WEIGHTS PTNT HAS +2 PITTING EDEMA IN BLE TODAY, INSTRUCTED ON KEEPING LOG AND REPORTING WEIGHT GAIN OF 2LBS OVERNIGHT OR 5LBS IN 1 WEEK. SPOKE WITH AND PTNT ABOUT DISCHARGE AT NEXT SKILLED NURSE VISIT AND BOTH AGREEABLE LONG NOTHING CHANGES. PTNT STABLE UPON RN DEPARTURE.</paragraph> Encounters Start Date/Time End Date/Time Encounter Type Admission Type Attending Clinicians Care Facility Care Department Encounter ID Discharge Date Discharge Status Discharge Condition Discharge Reason Percent Goals Met 2024-08-16 00:00:00 2024-10-14 00:00:00 Outpatient NEW ADMISSION RANDAL WEBER [facility] [id number]
--- OUTSIDE RECORDS SUMMARY | 2024-09-28 10:46 | XMS_ITS | Clinical Summary ---
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) USE OF ASPIRIN Active 08-22 00:00: 00 PHYSICAL EDUCATION TEACHER (CURRENT) USE OF ORAL HYPOGLYCEMIC DRUGS Active [...] powder for inhalation 2023-08 00:00: 00 Yes [id number] COPD 1 inhalat ion ONCE DAILY 1 inhalation ONCE DAILY (route: inhalation ) Med Classific ation: Respirato ry Therapy Agents Aspirin Childrens 81 mg chewable tablet 2023-08 00:00: 00 Yes [id number] BLOOD CLOT PREVENTION 1 tablet ONCE DAILY 1 tablet ONCE DAILY (route: oral) Med Classific ation: Hematolog ical Agents Centrum Silver 400 mcg-250 mcg chewable tablet 2023-08 00:00: 00 Yes [id number] SUPPLEMENT 1 tablet ONCE DAILY 1 tablet ONCE DAILY (route: oral) Med Classific ation: Electroly te Balance-N utritiona l Products citalopram 10 mg tablet 2023-08 00:00: 00 Yes [id number] MOOD 1 tablet ONCE DAILY 1 tablet ONCE DAILY (route: oral) Med Classific ation: Central Nervous System Agents cranberry fruit 500 mg chewable tablet 2023-08 00:00: 00 Yes [id number] SUPPLEMENT 2 tablet ONCE DAILY 2 tablet ONCE DAILY (route: oral) Med Classific ation: Alternati ve Therapy donepezil 10 mg tablet 2023-08 00:00: 00 Yes [id number] DEMENTIA 1 tablet ONCE DAILY 1 tablet ONCE DAILY (route: oral) Med Classific ation: Cognitive Disorder Therapy furosemide 20 mg tablet 2023-08 00:00: 00 Yes [id number] EDEMA 1 tablet ONCE DAILY 1 tablet ONCE DAILY (route: oral) Med Classific ation: Cardiovas cular Therapy Agents loratadine 10 mg capsule 2023-08 00:00: 00 Yes [id number] ALLERGIES 1 capsule ONCE DAILY 1 capsule ONCE DAILY (route: oral) Med Classific ation: Respirato ry Therapy Agents magnesium 400 mg (as magnesium oxide) capsule 2023-08 00:00: 00 Yes [id number] SUPPLEMENT 1 capsule TWICE DAILY 1 capsule TWICE DAILY (route: oral) Med Classific ation: Electroly te Balance-N utritiona l Products memantine 10 mg tablet 2023-08 00:00: 00 Yes [id number] DEMENTIA 1 tablet TWICE DAILY 1 tablet TWICE DAILY (route: oral) Med Classific ation: Cognitive Disorder Therapy oxybutynin chloride 5 mg tablet 2023-08 00:00: 00 Yes [id number] BLADDER CONTROL 1 tablet 3 TIMES DAILY 1 tablet 3 TIMES DAILY (route: oral) Med Classific ation: Genitouri nary Therapy oxycodone-a cetaminophe n 5 mg-325 mg tablet 2023-08 00:00: 00 Yes [id number] PAIN 0.5-1 tablet EVERY 4 HOURS 0.5-1 tablet EVERY 4 HOURS (route: oral) Med Classific ation: Analgesic , Anti-infl ammatory or Antipyret ic potassium chloride ER 10 mEq capsule,ext ended release 2023-08 00:00: 00 Yes [id number] HYPOKALEMIA 1 capsule ONCE DAILY 1 capsule ONCE DAILY (route: oral) Med Classific ation: Electroly te Balance-N utritiona l Products rosuvastati n 20 mg tablet 2023-08 00:00: 00 Yes [id number] HIGH CHOLESTEROL 1 tablet ONCE DAILY 1 tablet ONCE DAILY (route: oral) Med Classific ation: Cardiovas cular Therapy Agents Rybelsus 3 mg tablet 2023-08 00:00: 00 Yes [id number] DIABETES MELLITUS 1 tablet DIRECTED 1 tablet [...] THEIR ABSENCE. ] Future Scheduled [facility] WILL TEACH PATIENT/CAREGIVER ABOUT HEART [...] BREATH, OR FATIGUE.] Future Scheduled Test [facility] WILL INSTRUCT ABOUT COPD, APPROPRIATE [...] WILL BE ESTABLISHED THAT MEETS ALL PATIENT'S CUSTODIAL NEEDS AND COUNTER SIGNED BY PHYSICIAN. Goal [...] 2024-10-14 00:00:00 Outpatient NEW ADMISSION [facility]ANDAL [facility] [id number] 39.58
--- OUTSIDE RECORDS SUMMARY | 2024-09-28 10:46 | XMS_ITS | Clinical Summary ---
Author Organization [facility] Address [address] [place] [address] Care Team Providers Care It Trainee Name Role Phone Mariam Esteban MD Primary Care Provider Allergies No known active allergies Medications rosuvastatin [...] 1 tablet (3 mg total) by mouth campus recruiting intern before breakfast 3 Active nitrofurantoin monohydrate (MACROBID) [...] 06/20/2020 Assessment & Plan (10/19/2022 1:02 PM DIRECT SALES PROFESSIONAL): Stable continue ASA 81 mg. Stage 3a chronic kidney disease 12/26/2019 Hyperlipidemia 12/15/2016 Assessment & Plan (12/01/2022 10:57 AM CDT): Stable continue Crestor 20 mg. Assessment & Plan (10/19/2022 1:02 PM DIRECT SALES PROFESSIONAL): Stable continue Crestor 20 mg. DUGAN (dyspnea [...] year. Assessment & Plan (10/19/2022 1:03 PM DIRECT SALES PROFESSIONAL): Status post EVAR with an Endologix stent graft by Dr. Schwartz at [facility] with a right groin cutdown, has been doing well since his aneurysm repair. CTA abdomen pelvis ordered for surveillance. We will follow-up after further imaging. Calculus of kidney 10/25/2016 Dyslipidemia 10/25/2016 Assessment & Plan (12/07/2023 9:59 AM CDT): Stable continue Crestor 20 mg. Surgical History Surgery Date Site/Laterality Comments HERNIA REPAIR Hernia repair ABDOMINAL AORTIC ANEURYSM REPAIR 10/05/2021 N/A EVAR Medical History Medical History Date Comments Asthma Asthma Hypertension Hypertension Depression Depression Anxiety disorder Anxiety Hyperlipidemia Hyperlipidemia Family History Medical History Relation Name Comments Alzheimer's disease Other Family h istory of Alzheimer's Disease; Heart disease Other Family history of Heart disease; Other Other Family history of black lung; Relation Name Status Comments Other Social History Tobacco Use Types Packs/Day Years Used Date Smoking Tobacco: Never Passive Smoke Exposure: Never Smokeless Tobacco: Never Tobacco Cessation:Counseling Given: Not Answered Sex and Gender Information Value Date Recorded Sex Assigned at Not on file Legal Sex Male 12:19 AM DIRECT SALES PROFESSIONAL Gender Identity Not on file Sexual Orientation Not on file Obstetrics History Last Filed Vital Signs Vital Sign Reading [...] 03/21/2024 11:37 AM CDT Plan of Treatment Health Maintenance Due Date Last Done Comments Depression Screening 1945 Fall Risk Assessment 1945 Hepatitis C Screening 1945 Hepatitis B Screening 01/27/1964 Zoster Vaccine (1 of 2) 01/27/1996 Well Visit 65+ 2011 Covid-19 Vaccine (5 2023-2 5 season) 2024 05/23/2022, 05/26/2021, 10/15/2020, Additional history exists Influenza Vaccine (#1) 2024 , 05/23/2022, 05/06/2021, Additional history exists DTaP/Tdap/Td Vaccine (2 - Td or Tdap) 02/07/2032 02/06/2022 Pneumococcal vaccine 65+ Completed 04/22/2019, 05/23 Insurance MEDICARE [facility]ICARE [facility] Care Teams It Trainee Relationship Specialty Start Date End Date Mariam Esteban MD [address] [place] [address] PCP - General 11/28/12
[2024-09-28 11:05] LABS: Hemoglobin A1C 6.1 % (<5.7)
[2024-09-28 11:43] LABS: Alanine Aminotransferase 33 U/L (16-63); Albumin Level 3.8 g/dL (3.4-5.0); Alkaline Phosphatase 102 U/L (46-116); Anion Gap 9 mmol/L (4-12); Aspartate Amino Transferase 27 U/L (15-37); Bilirubin,Total 0.5 mg/dL (0.00-1.00); Blood Urea Nitrogen 27 mg/dL (7-18); Calcium 10.5 mg/dL (8.5-10.1); Carbon Dioxide 31 mmol/L (21-32); Chloride 103 mmol/L (98-108); Cholesterol 243 mg/dL (0-200); Estimated Glomerular Filt Rate 44; Glucose 176 mg/dL (70-99); HDL Direct 49 mg/dL (40-60); Osmolality Calculated 305 mOsm/kg (285-295); Potassium 4.3 mmol/L (3.5-5.1); Prostate Specific Antigen 0.4 ng/mL (< OR = 4.0); Sodium 143 mmol/L (136-145); Total Protein 7.7 g/dL (6.4-8.2)
[2024-09-28 11:55] LABS: LDL Cholesterol Calculated 96 mg/dL (<130); Triglycerides 488 mg/dL (0-150)
[2024-09-28 12:12] LABS: LDL Cholesterol Direct 114 mg/dL (0-130)
== END 2024-09-28 10:02 | disposition home or self-care (01) ==
LOC: CHSLAB 10:02
PROVIDERS: PCP Internal Medicine; Visit Provider Internal Medicine
DX: E11.9 Type 2 diabetes mellitus without complications (principal); Z12.5 Encounter for screening for malignant neoplasm of prostate
CPT/HCPCS: 36415; 80053; 80061; 83036; 83721; 84153; 85027; G0103

== ENCOUNTER 2024-09-29 11:26 | Outpatient (CLI) | payer MEDICARE, SELFPAY ==
--- OUTSIDE RECORDS SUMMARY | 2024-09-29 11:30 | XMS_ITS | Encounter Summary ---
Author Organization [facility] Address [address] [place] [address] Care Team Providers Care Mixer Operator Tablets Name Role Phone Mariam Esteban MD Primary Care Provider Diomedes Alarcon MD Unavailable Unavailabl Nagi Brumfield MD Primary Care Provider [phone] Alonzo Campoverde MD Primary Care Provider [phone] Joana Avitia APRN, PROMOTIONS ASSISTANT SALES MARKETING-C Unavailable Diomedes Schwartz MD Unavailable Bernardo Álvarez MD Unavailable [phone] Alexi Acuña MD Unavailable + [phone] Violeta Brown PA-C Unavailable + [phone] Rosa Saunders MD Unavailable [phone] Encounter Details Date Type Department Care Team (Late st Contact Info) Description 11/05/2017 Abstract [facility] [address] [place] [address] , Generic Conversion, Social History Tobacco Use Types Packs/Day Years Used Date Smoking Tobacco: Never Alcohol Use Standard Drinks/Week Comments No 0 (1 standard drink = 0.6 oz pur e alcohol) Sex and Gender Information Value Date Recorded Sex Assigned at Not on file Legal Sex Male 11:01 PM CDT Gender Identity Not on file Sexual Orientation Not on file 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 Not on file Not on f ile documented as of this encounter Plan of Treatment Upcoming Encounters Date Type Department Care Team (Late st Contact Info) Description 10/03/2024 2:00 PM IMPREGNATOR HELPER Office Visit [facility] [address] [place] [address] Alexi Acuña MD [address] [place] [address] 10/03/2024 2:00 PM IMPREGNATOR HELPER Allied Health/Nurse Visit [place] [address] [place] [address] Alexi Acuña MD [address] [place] [address] 11/09/2024 1:00 AM CDT Allied Health/Nurse Visit [facility] [address] [place] [address] Alexi Acuña MD [address] [place] [address] 06/20/2025 2:30 PM CDT Office Visit [facility] [address] [place] [address] Joana Avitia, OPERATIONS ACCOUNTANT, PROMOTIONS ASSISTANT SALES MARKETING-C [address] [facility] [address] [place] [address] documented as of this encounter Visit Diagnoses Not on filedocumented in this encounter Additional Health Concerns Infection Onset Date Last Indicated Resolved Time COVID-19 Rule Out 03/11/2020 03/11/2020 03/13/2020 1:53 AM CDT documented as of this encounter Care Teams Mixer Operator Tablets Relationship Specialty Start Date End Date Mariam Esteban MD PCP - General SURGERY 07/21/16 08/19/19 Nagi Quintanilla MD [address] [place], [place] [phone] PCP - General FAMILY PRACTICE 09/27/19 01/30/20 Alonzo Campoverde MD [address] [place] [address] PCP - General INTERNAL MEDICINE 01/31/20 Diomedes Pritchard MD Oral Manual Lathe Operator CARDIOVASCULAR DISEASE 07/21/16 03/08/24 Joana Avitia APRN, PROMOTIONS ASSISTANT SALES MARKETING-C [address] [place] [phone] NURSE PRACTITIONER 09/10/21 Diomedes Schwartz MD [address] [place] [address] [phone] Vascular/Cardiologis t VASCULAR SURGERY 09/10/21 08/02/22 Bernardo Á[place] [address] [place] [address] Consulting Physician PULMONARY DISEASE 08/03/22 Alexi Acuña MD [address] [place] [address] Consulting Physician CLINICAL CARDIAC ELECTROPHYSIOLOGY 08/11/23 Violeta Brown PA-C [address] [place] [address] Referring Physician PHYSICIAN MULT AU MATIC OPERATOR 03/09/24 Rosa Saunders MD [address] [place] [address] [place] [address] INTERVENTIONAL CARDIOLOGY 06/25/24 documented as of this encounter
--- OUTSIDE RECORDS SUMMARY | 2024-09-29 11:30 | XMS_ITS | Encounter Summary ---
Author Organization [facility] Address [address] [place] [address] Care Team Providers Care Academic Coordinator Name Role Phone Mariam Esteban MD Primary Care Provider Diomedes Alarcon MD Unavailable Unavailabl Nagi Brumfield MD Primary Care Provider [phone] Alonzo Campoverde MD Primary Care Provider [phone] Joana Avitia APRN, CLEAN UP HELPER BANQUET-C Unavailable Diomedes Schwartz MD Unavailable Bernardo Álvarez MD Unavailable [phone] Alexi Acuña MD Unavailable + [phone] Violeta Brown PA-C Unavailable + [phone] Rosa Saunders MD Unavailable [phone] Encounter Details Date Type Department Care Team (Late st Contact Info) Description 05/29/2018 Abstract [facility] [address] [place] [address] Diomedes Pritchard MD Social History Tobacco Use Types Packs/Day Years Used Date Smoking Tobacco: Never Smokeless Tobacco: Never Alcohol Use Standard Drinks/Week Comments No 0 (1 standard drink = 0.6 oz pur e alcohol) Sex and Gender Information Value Date Recorded Sex Assigned at Not on file Legal Sex Male 11:01 PM CDT Gender Identity Not on file Sexual Orientation Not on file 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 [address] 10/03/2024 2:00 PM CASHIER COURTESY BOOTH Allied Health/Nurse Visit [place] [address] [place] [address] Alexi Acuña MD [address] [place] [address] 11/09/2024 1:00 AM CDT Allied Health/Nurse Visit [facility] ld [address] [place] [address] [phone] Alexi Acuña MD [address] [place] [address] 06/20/2025 2:30 PM CDT Office Visit [facility] ld [address] [place] [address] Joana Avitia, OBSTETRICS SCRUB NURSE, CLEAN UP HELPER BANQUET-C [address] [facility] [address] [place] [address] documented as of this encounter Visit Diagnoses Not on filedocumented in this encounter Additional Health Concerns Infection Onset Date Last Indicated Resolved Time COVID-19 Rule Out 03/11/2020 03/11/2020 03/13/2020 1:53 AM CDT documented as of this encounter Care Teams Academic Coordinator Relationship Specialty Start Date End Date Mariam Esteban MD PCP - General SURGERY 07/21/16 08/19/19 Nagi Quintanilla MD [address] [place], [place] [phone] PCP - General FAMILY PRACTICE 09/27/19 01/30/20 Alonzo Campoverde MD [address] [place] [address] PCP - General INTERNAL MEDICINE 01/31/20 Diomedes Pritchard MD [place] Custom Van Converter CARDIOVASCULAR DISEASE 07/21/16 03/08/24 Joana Avitia, ROSA, CLEAN UP HELPER BANQUET-C [address] [place] [phone] NURSE PRACTITIONER 09/10/21 Diomedes Schwartz MD [address] [place] [address] Vascular/Cardiologis t VASCULAR SURGERY 09/10/21 08/02/22 Bernardo Álvarez MD [address] [place] [address] Consulting Physician PULMONARY DISEASE 08/03/22 Alexi Acuña MD [address] [place] [address] Consulting Physician CLINICAL CARDIAC ELECTROPHYSIOLOGY 08/11/23 Violeta Brown PA-C [address] [place] [address] Referring Physician PHYSICIAN ENGINEERING SECRETARY 03/09/24 Rosa Saunders MD [address] [place] [address] INTERVENTIONAL CARDIOLOGY 06/25/24 documented as of this encounter
--- OUTSIDE RECORDS SUMMARY | 2024-09-29 11:30 | XMS_ITS | Encounter Summary ---
Author Organization [facility] Address [address] [place] [address] Care Team Providers Care Hvac Project Manager Name Role Phone Mariam Esteban MD Primary Care Provider Diomedes Alarcon MD Unavailable Unavailabl Nagi Brumfield MD Primary Care Provider [phone] Alonzo Campoverde MD Primary Care Provider [phone] Joana Avitia APRN, ASSEMBLER PIANO-C Unavailable Diomedes Schwartz MD Unavailable Bernardo Álvarez MD Unavailable [phone] Alexi Acuña MD Unavailable + [phone] Violeta Brown PA-C Unavailable + [phone] Rosa Saunders MD Unavailable [phone] Encounter Details Date Type Department Care Team (Late st Contact Info) Description 05/31/2018 Abstract [facility] [address] [place] [address] Diomedes Pritchard MD Social History [...] st Contact Info) Description 10/03/2024 2:00 PM SHIP MATE Office Visit [facility] [address] [place] [address] Alexi Acuña MD [address] [place] [address] 10/03/2024 2:00 PM SHIP MATE Allied Health/Nurse Visit [place] [address] [place] [address] Alxei Acuña MD [address] [place] [address] 11/09/2024 1:00 AM CDT Allied Health/Nurse Visit [facility] [address] [place] [address] [phone] Alexi Acuña MD [address] [place] [address] 06/20/2025 2:30 PM CDT Office Visit [facility] ld [address] [place] [address] Joana Avitia, MAKE UP GIRL, ASSEMBLER PIANO-C [address] [facility] [address] [place] [address] documented as of this encounter Procedures Procedure Name Priority Date/Time Associated Diagnosis Comments MAGNESIUM (OUTSIDE LAB) Routine 05/26/2018 BNP (OUTSIDE LAB) Routine 05/26/2018 TSH (OUTSIDE LAB) Routine 05/26/2018 BASIC METABOLIC PANEL Routine 05/26/2018 THYROXINE, FREE (FT4) Routine 05/26/2018 documented in this encounter Results * BNP (OUTSIDE LAB) (05/26/2018) B TYPE NATRIURETIC PEPTIDE 128 05/26/2018 [facility] Abstract LAB-OUTSIDE/ABSTRACTED Final Result * MAGNESIUM (OUTSIDE LAB) (05/26/2018) MAGNESIUM 1.8 05/26/2018 us [facility] Abstract LAB-OUTSIDE/ABSTRACTED Final Result * THYROXINE, FREE (FT4) (05/26/2018) FREE T4 0.77 05/26/2018 us Doc [facility] Abstract LABORATORY Final Result * TSH (OUTSIDE LAB) (05/26/2018) TSH 1.77 05/26/2018 us [facility] Abstract LAB-OUTSIDE/ABSTRACTED Final Result * BASIC METABOLIC PANEL (05/26/2018) SODIUM S/P/B 143 POTASSIUM S/P/B 4.3 CO2 31 CHLORIDE S/P/B 104 05/26/2018 us [facility] Abstract LABORATORY Final Result documented in this encounter Visit Diagnoses Not on filedocumented in this encounter Additional Health Concerns Infection Onset Date Last Indicated Resolved Time COVID-19 Rule Out 03/11/2020 03/11/2020 03/13/2020 1:53 AM CDT documented as of this encounter Care Teams Hvac Project Manager Relationship Specialty Start Date End Date Mariam Esteban MD PCP - General SURGERY 11/30/16 12/29/19 Nagi Quintanilla MD [address] [place], [place] [phone] PCP - General FAMILY PRACTICE 09/27/19 01/30/20 Alonzo Campoverde MD [address] [place] [address] PCP - General INTERNAL MEDICINE 01/31/20 Diomedes Pritchard MD [place] Skates Operator CARDIOVASCULAR DISEASE 07/21/16 03/08/24 Joana Avitia, ROSA, ASSEMBLER PIANO-C [address] [place] [address] [address] [place] [phone] NURSE PRACTITIONER 09/10/21 Diomedes Schwartz MD [address] [place] [address] Vascular/Cardiologis t VASCULAR SURGERY 09/10/21 08/02/22 Bernardo Álvarez MD [address] [place] [address] Consulting Physician PULMONARY DISEASE 08/03/22 Alexi Acuña MD [address] [place] [address] Consulting Physician CLINICAL CARDIAC ELECTROPHYSIOLOGY 08/11/23 Violeta Brown PA-C [address] [place] [address] Referring Physician PHYSICIAN ADOPTION SERVICES MANAGER 03/09/24 Rosa Saunders MD [address] [place] [address] INTERVENTIONAL CARDIOLOGY 06/25/24 documented as of this encounter
--- OUTSIDE RECORDS SUMMARY | 2024-09-29 11:30 | XMS_ITS | Clinical Summary ---
Author Organization Unknown Care Team Providers Care Paste Plant Supervisor Name Role Phone LEIGH ANN SANDS Unavailable Unavailable TRACY PHYSICAL THERAPIST, LINDA Unavailabl e Unavailable LUZ RN HEMO DIALYSIS, MARGARITA Unavail able Unavailable TIA REGISTERED NURSE, RANDAL Unavailable Unavailable Payers Payer Name Policy Type Policy Number Effective Date Expira tion Date MEDICARE [place] - EPISODIC [id number] Problems Condition Name Condition Details Condition Category [...] [BMI] 31.0-31.9, ADULT Active 08-22 00:00: 00 SUPERINTENDENT GAS DISTRIBUTION (CURRENT) USE OF ASPIRIN Active 08-22 00:00: 00 SUPERINTENDENT GAS DISTRIBUTION (CURRENT) USE OF ORAL HYPOGLYCEMIC DRUGS Active [...] powder for inhalation 2023-08 00:00: 00 Yes [id number] COPD 1 inhalat ion ONCE DAILY 1 inhalation ONCE DAILY (route: inhalation ) Med Classific ation: Respirato ry Therapy Agents Aspirin Childrens 81 mg chewable tablet 2023-08 00:00: 00 Yes [id number] BLOOD CLOT PREVENTION 1 tablet ONCE DAILY 1 tablet ONCE DAILY (route: oral) Med Classific ation: Hematolog ical Agents Centrum Silver 400 mcg-250 mcg chewable tablet 2023-08 00:00: 00 Yes [id number] SUPPLEMENT 1 tablet ONCE DAILY 1 tablet ONCE DAILY (route: oral) Med Classific ation: Electroly te Balance-N utritiona l Products citalopram 10 mg tablet 2023-08 00:00: 00 Yes [id number] MOOD 1 tablet ONCE DAILY 1 tablet ONCE DAILY (route: oral) Med Classific ation: Central Nervous System Agents cranberry fruit 500 mg chewable tablet 2023-08 00:00: 00 Yes [id number] SUPPLEMENT 2 tablet ONCE DAILY 2 tablet ONCE DAILY (route: oral) Med Classific ation: Alternati ve Therapy donepezil 10 mg tablet 2023-08 00:00: 00 Yes [id number] DEMENTIA 1 tablet ONCE DAILY 1 tablet ONCE DAILY (route: oral) Med Classific ation: Cognitive Disorder Therapy furosemide 20 mg tablet 2023-08 00:00: 00 Yes [id number] EDEMA 1 tablet ONCE DAILY 1 tablet ONCE DAILY (route: oral) Med Classific ation: Cardiovas cular Therapy Agents loratadine 10 mg capsule 2023-08 00:00: 00 Yes [id number] ALLERGIES 1 capsule ONCE DAILY 1 capsule ONCE DAILY (route: oral) Med Classific ation: Respirato ry Therapy Agents magnesium 400 mg (as magnesium oxide) capsule 2023-08 00:00: 00 Yes [id number] SUPPLEMENT 1 capsule TWICE DAILY 1 capsule TWICE DAILY (route: oral) Med Classific ation: Electroly te Balance-N utritiona l Products memantine 10 mg tablet 2023-08 00:00: 00 Yes [id number] DEMENTIA 1 tablet TWICE DAILY 1 tablet TWICE DAILY (route: oral) Med Classific ation: Cognitive Disorder Therapy oxybutynin chloride 5 mg tablet 2023-08 00:00: 00 Yes [id number] BLADDER CONTROL 1 tablet 3 TIMES DAILY 1 tablet 3 TIMES DAILY (route: oral) Med Classific ation: Genitouri nary Therapy oxycodone-a cetaminophe n 5 mg-325 mg tablet 2023-08 00:00: 00 Yes [id number] PAIN 0.5-1 tablet EVERY 4 HOURS 0.5-1 tablet EVERY 4 HOURS (route: oral) Med Classific ation: Analgesic , Anti-infl ammatory or Antipyret ic potassium chloride ER 10 mEq capsule,ext ended release 2023-08 00:00: 00 Yes [id number] HYPOKALEMIA 1 capsule ONCE DAILY 1 capsule ONCE DAILY (route: oral) Med Classific ation: Electroly te Balance-N utritiona l Products rosuvastati n 20 mg tablet 2023-08 00:00: 00 Yes [id number] HIGH CHOLESTEROL 1 tablet ONCE DAILY 1 tablet ONCE DAILY (route: oral) Med Classific ation: Cardiovas cular Therapy Agents Rybelsus 3 mg tablet 2023-08 00:00: 00 Yes [id number] DIABETES MELLITUS 1 tablet DIRECTED 1 tablet [...] THEIR ABSENCE. ] [facility] TEACH PATIENT/CAREGIVER ABOUT [...] BREATH, OR FATIGUE.] [facility] Scheduled [facility] WILL INSTRUCT ABOUT COPD, [...] WILL BE ESTABLISHED THAT MEETS ALL PATIENT'S LONG TERM NEEDS AND COUNTER SIGNED BY PHYSICIAN. Goal [...] Notes Progress Notes <paragraph>[Visit Date: 2024 by ARNDAL WEBER REGISTERED NURSE]:</paragraph><paragraph>PTNT BEING SEEN FOR DEMENTIA. [...] 2024-10-14 00:00:00 Outpatient NEW ADMISSION RANDAL WEBER [facility] [id number] 39.58
--- OUTSIDE RECORDS SUMMARY | 2024-09-29 11:30 | XMS_ITS | Encounter Summary ---
Author Organization [facility] Address [address] [place] [address] Care Team Providers Care Tongue Trimmer Name Role Phone Mariam Esteban MD Primary Care Provider Diomedes Alarcon MD Unavailable Unavailabl Nagi Brumfield MD Primary Care Provider [phone] Alonzo Campoverde MD Primary Care Provider [phone] Joana Avitia APRN, BUNDLER SEASONAL GREENERY-C Unavailable Diomedes Schwartz MD Unavailable Bernardo Álvraez MD Unavailable [phone] Alexi Acuña MD Unavailable [phone] Violeta Brown PA-C Unavailable + [phone] Rosa Saunders MD Unavailable [phone] Encounter Details Date Type Department Care Team (Late st Contact Info) Description 04/24/2015 Abstract [facility] [address] [place] [address] Diomedes Pritchard MD Social History Tobacco Use [...] 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 [address] 10/03/2024 2:00 PM WILD LIFE PHOTOGRAPHER Allied Health/Nurse Visit [facility] [address] [place] [address] Alexi Acuña MD [address] [place] [address] 11/09/2024 1:00 AM CDT Allied Health/Nurse Visit [facility] [address] [place] [address] Alexi Acuña MD [address] [place] [address] 06/20/2025 2:30 PM CDT Office Visit [facility] [address] [place] [address] Joana Avitia, ORTHODONTIST VICE PRESIDENT, BUNDLER SEASONAL [employer]ENERY-C [address] [facility] [address] [place] [address] documented as of this encounter Visit Diagnoses Not on filedocumented in this encounter Additional Health Concerns Infection Onset Date Last Indicated Resolved Time COVID-19 Rule Out 03/11/2020 03/11/2020 03/13/2020 1:53 AM CDT documented as of this encounter Care Teams Tongue Trimmer Relationship Specialty Start Date End Date Mariam Esteban MD PCP - General SURGERY 07/21/16 08/19/19 Nagi Quintanilla MD [address] [place] [address] PCP - General FAMILY PRACTICE 09/27/19 01/30/20 Alonzo Campoverde MD [address] [place] [phone] PCP - General INTERNAL MEDICINE 01/31/20 Diomedes Pritchard MD [place] Guest Relations Agent CARDIOVASCULAR DISEASE 07/21/16 03/08/24 Joana Avitia APRN, BUNDLER SEASONAL GREENERY-C [address] [place] [address] [address] [place] [phone] NURSE PRACTITIONER 09/10/21 Diomedes Schwartz MD [address] [place] [address] Vascular/Cardiologis t VASCULAR SURGERY 09/10/21 08/02/22 Bernardo Álvarez MD [address] [place] [address] Consulting Physician PULMONARY DISEASE 08/03/22 Alexi Acuña MD [address] [place] [address] Consulting Physician CLINICAL CARDIAC ELECTROPHYSIOLOGY 08/11/23 Violeta Brown PA-C [address] [place] [address] Referring Physician PHYSICIAN FACILITY SECURITY OFFICER 03/09/24 Rosa Saunders MD [address] [place] [address] INTERVENTIONAL CARDIOLOGY 06/25/24 documented as of this encounter
--- OUTSIDE RECORDS SUMMARY | 2024-09-29 11:30 | XMS_ITS | Clinical Summary ---
Author Organization [facility] Address [address] [place] [address] Care Team Providers Care Forensic Scientist Name Role Phone Alonzo Campoverde MD Primary Care Provider [phone] Joana Avitia APRN, NP-C Unavailable [phone] Bernardo Álvarez MD Unavailable [phone] Alexi Acuña MD Unavailable [phone] Violeta Brown PA-C Unavailable [phone] Rosa Saunders MD Unavailable [phone] Allergies No known active allergies Medications Multiple Vitamins-Minera ls (CENTRUM SILVER) Tab Take 1 tablet by mouth daily. 01/22/2008 Active rosuvastatin 20 MG tablet Take 1 tablet (20 mg total) by mouth daily. Active aspirin EC (ECOTRIN) 81 MG tablet Take 1 tablet (81 mg total) by mouth daily. Active loratadine (CLARITIN) 10 MG tablet Take 1 tablet (10 mg total) by mouth daily. As directed Active magnesium oxide (MAG-OX) 400 MG tablet Take 1 tablet (400 mg total) by mouth 2 (two) times daily. 01/25/2022 Active Semaglutide 3 MG Tab Take 3 mg by mouth 3 (three) times a week. Active oxybutynin (DITROPAN) 5 MG tablet Take 1 tablet (5 mg total) by mouth 3 (three) times daily. Active umeclidinium-vi lanterol (ANORO ELLIPTA) 62.5-25 MCG/ACT inhaler Inhale 1 puff into the lungs daily. Active donepezil (ARICEPT) 10 MG Tab Take 1 tablet (10 mg total) by mouth nightly at bedtime. Active memantine (NAMENDA) 10 MG tablet Take 1 tablet (10 mg total) by mouth 2 (two) times daily. Active furosemide (LASIX) 20 MG tablet Take 1 tablet (20 mg total) by mouth daily. DIRECTED 02/02/2024 Active potassium citrate CR (UROCIT-K) 10 MEQ (1080 MG) tablet Take 1 tablet (10 mEq total) by mouth daily. 02/02/2024 Active citalopram (CELEXA) 10 MG tablet Take 1 tablet (10 mg total) by mouth daily. Active metoprolol succinate ER (TOPROL-XL) 25 MG 24 hr tablet Take 1 tablet (25 mg total) by mouth daily. 05/26/2024 Active tamsulosin (FLOMAX) 0.4 MG Cap Take 1 capsule (0.4 mg total) by mouth daily. 05/30/2024 Active Active Problems Problem Noted Date Diagnosed Date Sinus bradycardia 04/04/2024 Atrial fibrillation, unspecified type ([facility] H HS/HCC) 10/24/2023 Implantable loop recorder present 09/13/2023 Typical atrial flutter ([facility]) 024 S/P ablation of atrial flutter 08/27/2023 Sepsis ([facility]HS/[facility]) 05/15/2023 Status post endovascular aneurysm repair (EVAR) 11/07/2022 AAA (abdominal aortic aneurysm) without rupture 10/05/2021 S/P coronary artery stent placement 09/07/2021 Hyperlipidemia 12/15/2016 DUGAN (dyspnea on exertion) 11/20/2016 Sleep apnea S/P mitral valve repair Coronary artery disease Abdominal aortic aneurysm (AAA) Resolved Problems Problem Noted Date Diagnosed Date Resolved Date Mitral regurgitation 020 Encounters Date Type Department Care Team Description 09/27/2024 Orders Only [facility] [address] [place] [address] Alexi Acuña MD 09/05/2024 1:30 AM HEAD MILLER Allied Health/Nurse Visit [facility] [address] [place] [address] Alexi Acuña MD 07/18/2024 11:00 AM HEAD MILLER Allied Health/Nurse Visit [facility] [address] [place] [address] Alexi Acuña MD from Last 3 Months Family History Medical History Relation Comments No Known Problems Brother Heart Attack Father No Known Problems Maternal Aunt No Known Problems Maternal Grandfather No Known Problems Maternal Grandmother No Known Problems Maternal Uncle No Known Problems Mother No Known Problems Other No Known Problems Paternal Aunt No Known Problems Paternal Grandfather No Known Problems Paternal Grandmother No Known Problems Paternal Uncle No Known Problems Sister Relation Status Comments Brother Father (Age 86) Maternal Aunt Maternal Grandfather Maternal Grandmother Maternal Uncle Mother (Age 85) Other Paternal Aunt Paternal Grandfather Paternal Grandmother Paternal Uncle Sister Social History Tobacco Use Types Packs/Day Years Used Date Smoking Tobacco: Never Smokeless Tobacco: Never Tobacco Cessation:Counseling Given: Not Answered Comments:patient doesnt smoke Alcohol Use Standard Drinks/Week Comments No 0 (1 standard drink = 0.6 oz pur e alcohol) Humiliation, Afraid, Rape, and Kick questionnair e Answer Date Recorded Within the last year, have y ou been afraid of your partner or ex-partner? No 05/15/2023 Within the last year, have y ou been humiliated or emotionally abused in other ways by your partner or ex-partner? No Within the last year, have y ou been kicked, hit, slapped, or otherwise physically hurt by your partner or ex-partner? No 05/15/2023 Within the last year, have y ou been raped or forced to have any kind of sexual activity by your partner or ex-partner? No 05/15/2023 Overall Financial Resource Strain (CARDIA) Answe r Date Recorded How hard is it for you to pa y for the very basics like food, housing, medical care, and heating? Not hard at all 05/15/2023 PHQ-2 Answer Date Recorded PHQ-2 Score - If the patient scores above 3, please move on to questions 3-9 0 04/30/2022 Hunger Vital Sign Answer Date Recorded Within the past 12 months, y ou worried that your food would run out before you got the money to buy more. Never true 05/15/20 23 Within the past 12 months, t he food you bought just didn't last and you didn't have money to get more. Never true 05/15/2023 PRAPARE - Transportation Answer Date Re corded In the past 12 months, has l ack of transportation kept you from medical appointments or from getting medications? No 04/23 In the past 12 months, has l ack of transportation kept you from meetings, work, or from getting things needed for daily living? No 05/15/2023 Housing Stability Vital Sign Answer Luis e Recorded In the last 12 months, was t here a time when you were not able to pay the mortgage or rent on time? No 05/15/2023 In the last 12 months, how many places have you lived? 1 05/15/2023 In the last 12 months, was t here a time when you did not have a steady place to sleep or slept in a fdc (including now)? 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 Not on file Not on f ile Last Filed Vital Signs Vital Sign Reading Time Taken Comments Blood Pressure 132/68 06/25/2024 3:06 PM HEAD MILLER Pulse 58 06/25/2024 3:06 PM HEAD MILLER Temperature 35.9 C (96.6 F) 08/08/2023 12:06 PM HEAD MILLER Respiratory Rate 16 06/25/2024 3:06 PM HEAD MILLER Oxygen Saturation 99% 06/25/2024 3:06 PM HEAD MILLER Inhaled Oxygen Concentration - - Weight 102.1 kg (225 lb) 06/25/2024 3:06 PM HEAD MILLER Height 185.4 cm (6' 1 ) 06/25/2024 3:06 PM HEAD MILLER Body Mass Index 29.69 06/25/2024 3:06 PM HEAD MILLER Plan of Treatment Upcoming Encounters Date Type Department Care Team (Late st Contact Info) Description 10/03/2024 2:00 PM HEAD MILLER [facility] Visit [facility] [address] [place] [address] Alexi Acuña MD [address] [place] [address] 10/03/2024 2:00 PM HEAD MILLER Allied Health/Nurse Visit [address] [place] [address] Alexi Acuña MD [address] [place] [address] 11/09/2024 1:00 AM CDT Allied Health/Nurse Visit [facility] [address] [place] [address] Alexi Acuña MD [address] [place] [address] 06/20/2025 2:30 PM CDT Office Visit [facility] [address] [place] [address] Joana Avitia, JIGGER MACHINE OPERATOR, RECONCILIATION ACCOUNTANT-C [address] [facility] [address] [place] [address] Health Maintenance Due Date Last Done Comments ASCVD LDL 1945 ASCVD Statin 1945 Hepatitis C 01/27/1964 DTaP, Tdap and Td Vaccines (1 - Tdap) 1965 Zoster Vaccines (1 of 2) 01/27/1996 Annual Medicare Wellness Visit 2011 Pneumococcal Vaccine: 65+ Years (2 of 2 - PCV) 04/22/2020 04/22/2019, 06/12/2015 RSV Immunization or 60+ Years (1 - 1-dose 75+ series) 2021 COVID-19 Vaccine ( - 2024-25 season) 2024 05/26/2021, 10/15/2020, 09/24/2020 Influenza Adult (#1) 2024 06/05/2022, 05/05/2021, 05/26/2020 AAA SCREENING Completed 11/12/2022, 10/21, 11/21/2021, Additional history exists Meningococcal B Vaccine Aged Out No l onger eligible based on patient's age to complete this topic Meningococcal Vaccine Aged Out No yara cong eligible based on patient's age to complete this topic RSV Immunizations Under 20 Months Aged Out No longer eligible based on patient's age to complete this topic Goals Goal Patient Goal Type Associated Problems Recent Progress Patient-Stated? Author Health - patient able to perform ADLs independently General No Amarilis Gupta RN Medical Devices Implanted Type Area Slat Basket Maker Helper Machine Device Identifier Shelf Expiration Date Model / Serial / Lot Holliday Proximal Endograft System Implanted:Qt y: 1 on 10/05/2021 by Tess Schwartz MD at [facility] [employer]E Graft N/A: Aorta ENDOLOGIX [id number] 07/24/2022 A28-28/C 95-020 V / [id number] / Medtronic Linq Ii- 3 Implanted: by Alexi Acuña MD (Quantity not on file) Implantable Loop Recorder [employer] 10/21/2024 [id number] / [id number] / Description:DX: Suspected AF Cv Biotronik Orsiro Tomy Mid Lad- 0 Implanted:Qt y: 1 on 03/14/2020 by Dc Tipton MD Stent Coronary LAD BIOTRONIK 04/25/2021 [id number] / / [id number] [place] Viabahn 9mm X 59mm Stent Rt Eia-04/26/2023 Implanted: by Mega Cobb MD (Quantity not on file) Stent [employer] 06/22/2025 [id number] / [id number] / Afx2 Bifurcated Endograft System Implanted:Qt y: 1 on 10/05/2021 by Tess Schwartz MD at [facility] N/A: Aorta ENDOLOGIX [id number] 05/28/2023 [id number] / [id number] Description:Positioned in DI STAL AORTA Procedures Procedure Name Priority Date/Time Associated Diagnosis Comments CTA ABD+PEL Routine 11/21/2021 11:52 AM CDT Abdominal aortic aneurysm without rupture from Last 3 Months or Most Recently Relevant to Health Maintenance Results * CTA ABD+PEL (11/21/2021 11:52 AM CDT) Anatomical Region Laterality Modality Abdomen, Pelvis Computed Tomogra phy 11/23/2021 1:03 PM CDT Impressions 11/23/2021 2:04 PM CDT IMPRESSION: 1. Abdominal aortic aneurysm status post aortobiiliac stent graft. Widest portion of the aneurysm measures 4.7 x 5.1 cm, and includes the thrombosed external portion of the sac. The enhancing portion of the lumen, within the graft measures 2.4 cm. No evidence of endoleak. 2. 5 cm fluid collection surrounding the distal aspect of the common femoral artery on the right. Presumably resolving hematoma or seroma. Physical exam and if needed ultrasound recommended to exclude pseudoaneurysm, but there is no evidence of enhancement on this examination. Attention on follow-up recommended. 3. Multiple Bosniak category 2 lesions of both kidneys which needs no specific follow-up. There is also an indeterminate 16 mm lesion of the lower pole right kidney which requires further characterization. CT or MRI with and without contrast renal mass protocol recommended. 4. No free fluid or free air. Appendix normal. Referred By: TESS SCHWARTZ Interpreted By: David Aviles MD, 11/23/2021 1:03 PM Narrative 11/23/2021 2:04 PM CDT EXAMINATION: CT ANGIOGRAM ABDOMEN PELVIS WITH CONTRAST EXAM DATE: 11/21/2021 11:05 AM REASON FOR EXAM: Aneurysm status post surgery, follow-up COMPARISON: 07/15/2021 TECHNIQUE: Axial images through the abdomen and pelvis after injection of 100 mL Isovue-370. 3-D post processed images were reconstructed on an independent workstation with concurrent physician supervision. Dose lowering technique was used for this study which may include, but is not limited to, dose reduction techniques, automated exposure control, use of iterative reconstruction and ALARA (As low As Reasonably Achievable)/Image Gently techniques. FINDINGS: Abdominal aortic aneurysm status post aortobiiliac stent graft. Widest portion of the aneurysm measures 4.7 x 5.1 cm, and includes the thrombosed external portion of the sac. The enhancing portion of the lumen, within the graft measures 2.4 cm. No evidence of endoleak. Surrounding the distal aspect of the common femoral artery, there is a fluid collection measuring 5 cm, probably resolving hematoma or seroma. Celiac trunk, SMA, bilateral renal arteries are patent. Bilateral internal and external iliac arteries are patent. There is a small focal dissection of the distal right external iliac artery, which is stable and does not cause any vascular occlusion or compromise. Adrenals unremarkable. Kidneys: Numerous homogeneous low-density lesions of both kidneys with Hounsfield units less than 20, compatible with Bosniak category 2. In addition, there is a indeterminate lesion of the lower pole right kidney measuring 1.6 cm axial image 94. Similar to 07/15/2021, but further characterization recommended to exclude neoplasm. Stomach and duodenum and pancreas and spleen and gallbladder unremarkable. Liver: No evidence of intrahepatic biliary dilatation or mass. No mesenteric lymphadenopathy or evidence of small bowel dilatation. No evidence of free fluid. No retroperitoneal lymphadenopathy. Large bowel: No evidence of mass or dilatation. Appendix normal. Pelvis: Urinary bladder and rectum are unremarkable. Limited evaluation of the lower thorax is unremarkable. Bones: Moderate diffuse degenerative changes of the spine. No evidence of fracture or malalignment. Left total hip arthroplasty. Procedure Note David Aviles MD - 11/23/2021 EXAMINATION: CT ANGIOGRAM ABDOMEN PELVIS WITH CONTRAST EXAM DATE: 11/21/2021 11:05 AM REASON FOR EXAM: Aneurysm status post surgery, follow-up COMPARISON: 07/15/2021 TECHNIQUE: Axial images through the abdomen and pelvis after injection of100 mL Isovue-370. 3-D post processed images were reconstructed on an independent workstationwith concurrent physician supervision. Dose lowering technique was used for this study which may include, but isnot limited to, dose reduction techniques, automated exposure control, use of iterativereconstruction and ALARA (As low As Reasonably Achievable)/Image Gently techniques. FINDINGS: Abdominal aortic aneurysm status post aortobiiliac stent graft. Widestportion of the aneurysm measures 4.7 x 5.1 cm, and includes the thrombosedexternal portion of the sac. The enhancing portion of the lumen, withinthe graft measures 2.4 cm. No evidence of endoleak. Surrounding the distal aspect of the common femoral artery, there is afluid collection measuring 5 cm, probably resolving hematoma or seroma. Celiac trunk, SMA, bilateral renal arteries are patent. Bilateral internal and external iliac arteries are patent. There is a small focal dissection of the distal right external iliacartery, which is stable and does not cause any vascular occlusion orcompromise. Adrenals unremarkable. Kidneys: Numerous homogeneous low-density lesions of both kidneys withHounsfield units less than 20, compatible with Bosniak category 2. Inaddition, there is a indeterminate lesion of the lower pole right kidneymeasuring 1.6 cm axial image 94. Similar to 07/15/2021, but furthercharacterization recommended to exclude neoplasm. Stomach and duodenum and pancreas and spleen and gallbladderunremarkable. Liver: No evidence of intrahepatic biliary dilatation or mass. No mesenteric lymphadenopathy or evidence of small bowel dilatation. No evidence of free fluid. No retroperitoneal lymphadenopathy. Large bowel: No evidence of mass or dilatation. Appendix normal. Pelvis: Urinary bladder and rectum are unremarkable. Limited evaluation of the lower thorax is unremarkable. Bones: Moderate diffuse degenerative changes of the spine. No evidence offracture or malalignment. Left total hip arthroplasty. IMPRESSION: 1. Abdominal aortic aneurysm status post aortobiiliac stent graft.Widest portion of the aneurysm measures 4.7 x 5.1 cm, and includes thethrombosed external portion of the sac. The enhancing portion of thelumen, within the graft measures 2.4 cm. No evidence of endoleak. 2. 5 cm fluid collection surrounding the distal aspect of the commonfemoral artery on the right. Presumably resolving hematoma or seroma.Physical exam and if needed ultrasound recommended to excludepseudoaneurysm, but there is no evidence of enhancement on thisexamination. Attention on follow-up recommended. 3. Multiple Bosniak category 2 lesions of both kidneys which needs nospecific follow-up. There is also an indeterminate 16 mm lesion of thelower pole right kidney which requires further characterization. CT orMRI with and without contrast renal mass protocol recommended. 4. No free fluid or free air. Appendix normal. Referred By: TESS SCHWARTZ Interpreted By: David Aviles MD, 11/23/2021 1:03 PM us Tess Schwarzt MD CT Final Result from Last 3 Months or Most Recently Relevant to Health Maintenance Insurance MEDICARE [facility] MEDICARE Advance Directives * Full Code (Latest Code Status on File) Date Activated Date Inactivated Comments 05/17/2023 10:36 AM 05/20/2023 3:20 PM * Full Code Date Activated Date Inactivated Comments 05/15/2023 11:08 PM 05/17/2023 10:36 AM * Full Code Date Activated Date Inactivated Comments 10/05/2021 4:21 PM 10/06/2021 6:15 PM * Full Code Date Activated Date Inactivated Comments 03/14/2020 11:39 AM 03/14/2020 6:59 PM Care Teams Forensic Scientist Relationship Specialty Start Date End Date Alonzo Campoverde MD [address] [place] [id number] PCP - General INTERNAL MEDICINE 01/31/20 Joana Avitia APRN, RECONCILIATION ACCOUNTANT-C [address] [place] [phone] NURSE PRACTITIONER 09/10/21 Bernardo Álvarez MD [address] [place] [address] [phone] Consulting Physician PULMONARY DISEASE 08/03/22 Alexi Acuña MD [address] [place] [id number] Consulting Physician CLINICAL CARDIAC ELECTROPHYSIOLOGY 08/11/23 Violeta Brown PA-C [address] [place] [address] Referring Physician PHYSICIAN AUTOMATED MANUFACTURING INSTRUCTOR 03/09/24 Rosa Saunders MD [address] [place] [address] [id number] INTERVENTIONAL CARDIOLOGY 06/25/24
--- OUTSIDE RECORDS SUMMARY | 2024-09-29 11:30 | XMS_ITS | Clinical Summary ---
Author Organization [facility] Center Address [address] [place] [address] Care Team Providers Care On Site Coordinator Name Role Phone Mariam Esteban MD Primary Care Provider [phone] Allergies No known active allergies Medications rosuvastatin [...] 1 tablet (3 mg total) by mouth loading checker before breakfast 3 Active nitrofurantoin monohydrate (MACROBID) [...] 06/20/2020 Assessment & Plan (10/19/2022 1:02 PM MISSION ANALYST): Stable continue ASA 81 mg. Stage 3a chronic kidney disease 12/26/2019 Hyperlipidemia 12/15/2016 Assessment & Plan (12/01/2022 10:57 AM CDT): Stable continue Crestor 20 mg. Assessment & Plan (10/19/2022 1:02 PM MISSION ANALYST): Stable continue Crestor 20 mg. DUGAN (dyspnea [...] year. Assessment & Plan (10/19/2022 1:03 PM MISSION ANALYST): Status post EVAR with an Endologix stent graft by Dr. Schwartz at [facility] with a right groin cutdown, has [...] on file Legal Sex Male 12:19 AM MISSION ANALYST Gender Identity Not on file Sexual Orientation [...] 65+ Completed 04/22/2019, 05/23 Insurance MEDICARE MEDICARE [facility] Care Teams On Site Coordinator Relationship Specialty Start Date End Date Mariam Esteban MD [address] [place] [address] PCP - General 11/28/12
--- OUTSIDE RECORDS SUMMARY | 2024-09-29 11:30 | XMS_ITS | Referral Summary ---
Author Organization [facility] Center Address [address] [place] [address] Care Team Providers Care Secondary Set Up Man Name Role Phone Mariam Esteban MD Primary Care Provider [phone] Allergies No known active allergies Medications rosuvastatin [...] 1 tablet (3 mg total) by mouth brand marketing specialist before breakfast 3 Active nitrofurantoin monohydrate (MACROBID) [...] 06/20/2020 Assessment & Plan (10/19/2022 1:02 PM MAINTENANCE ASSOCIATE): Stable continue ASA 81 mg. Stage 3a chronic kidney disease 12/26/2019 Hyperlipidemia 12/15/2016 Assessment & Plan (12/01/2022 10:57 AM CDT): Stable continue Crestor 20 mg. Assessment & Plan (10/19/2022 1:02 PM MAINTENANCE ASSOCIATE): Stable continue Crestor 20 mg. DUGAN (dyspnea [...] year. Assessment & Plan (10/19/2022 1:03 PM MAINTENANCE ASSOCIATE): Status post EVAR with an Endologix stent graft by Dr. Schwartz at [facility] with a right groin cutdown, has been [...] on file Legal Sex Male 12:19 AM MAINTENANCE ASSOCIATE Gender Identity Not on file Sexual Orientation [...] Treatment Not on file Insurance MEDICARE MEDICARE [facility] Care Teams Secondary Set Up Man Relationship Specialty Start Date End Date Mariam Esteban MD [address] [place] [address] PCP - General 11/28/12
--- OUTSIDE RECORDS SUMMARY | 2024-09-29 11:30 | XMS_ITS | Encounter Summary ---
Author Organization [facility] Address [address] [place] [address] Care Team Providers Care Resident Care Spec Name Role Phone Mariam Esteban MD Primary Care Provider Diomedes Alarcon MD Unavailable Unavailabl Nagi Brumfield MD Primary Care Provider [phone] Alonzo Campoverde MD Primary Care Provider [phone] Joana Avitia APRN, ASSOCIATE PROFESSOR OF MUSICOLOGY-C Unavailable [phone] Diomedes Schwartz MD Unavailable Bernardo Álvarez MD Unavailable [phone] Alexi Acuña MD Unavailable [phone] Violeta Brown PA-C Unavailable [phone] Rosa Saunders MD Unavailable [phone] Encounter Details Date Type Department Care Team (Latest Contact Info) Description 04/04/2018 Abstract [facility] Bernardo Álvarez MD [address] [place] [address] Social History Tobacco Use Types Packs/Day Years [...] 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 Not on file Not on f ile documented as of this encounter Plan of Treatment Upcoming Encounters Date Type Department Care Team (Late st Contact Info) Description 10/03/2024 2:00 PM MODEL AND MOLD MAKER PLASTER Office Visit [facility] [address] [place] [address] Alexi Acuña MD [address] [place] [address] 10/03/2024 2:00 PM MODEL AND MOLD MAKER PLASTER Allied Health/Nurse Visit [facility] [address] [place] [address] Alexi Acuña MD [address] [place] [address] 11/09/2024 1:00 AM CDT Allied Health/Nurse Visit [facility] [address] [place] [address] Alexi Acuña MD [address] [place] [address] 06/20/2025 2:30 PM CDT Office Visit [facility] [address] [place] [address] Joana Avitia, WHEEL ROLLER, ASSOCIATE PROFESSOR OF MUSICOLOGY-C [address] [facility] [address] [place] [address] documented as of this encounter Visit Diagnoses Not on filedocumented in this encounter Additional Health Concerns Infection Onset Date Last Indicated Resolved Time COVID-19 Rule Out 03/11/2020 03/11/2020 03/13/2020 1:53 AM CDT documented as of this encounter Care Teams Resident Care Spec Relationship Specialty Start Date End Date Mariam Esteban MD PCP - General SURGERY 07/21/16 08/19/19 Nagi Quintanilla MD [address] [place], [place] [id number] PCP - General FAMILY PRACTICE 09/27/19 01/30/20 Alonzo Campoverde MD [address] [place] [address] PCP - General INTERNAL MEDICINE 01/31/20 Diomedes Pritchard MD [place] Php Programmer CARDIOVASCULAR DISEASE 07/21/16 03/08/24 Joana Avitia APRN, ASSOCIATE PROFESSOR OF MUSICOLOGY-C [address] [place] [phone] NURSE PRACTITIONER 09/10/21 Diomedes Schwartz MD [address] [place] [address] Vascular/Cardiologis t VASCULAR SURGERY 09/10/21 08/02/22 Bernardo Álvarez MD [address] [place] [address] Consulting Physician PULMONARY DISEASE 08/03/22 Alexi Acuña MD [address] [place] [address] Consulting Physician CLINICAL CARDIAC ELECTROPHYSIOLOGY 08/11/23 Violeta Brown PA-C [address] [place] [address] Referring Physician PHYSICIAN SHEAR OPERATOR HELPER 03/09/24 Rosa Saunders MD [address] [place] [address] INTERVENTIONAL CARDIOLOGY 06/25/24 documented as of this encounter
--- OUTSIDE RECORDS SUMMARY | 2024-09-29 11:30 | XMS_ITS | Encounter Summary ---
Author Organization [facility] Address [address] [place] [address] Care Team Providers Care Retail Grocer Name Role Phone Mariam Esteban MD Primary Care Provider Diomedes Alarcon MD Unavailable Unavailabl Nagi Brumfield MD Primary Care Provider [phone] Alonzo Campoverde MD Primary Care Provider [phone] Joana Avitia APRN, JUNIOR MECHANICAL ENGINEER-C Unavailable Diomedes Schwartz MD Unavailable Bernardo Álvarez MD Unavailable [phone] Alexi Acuña MD Unavailable [phone] Violeta Brown-C Unavailable [phone] Rosa Saunders MD Unavailable [phone] Encounter Details Date Type Department Care Team (Late st Contact Info) Description 05/29/2018 Abstract [facility] [address] [place] [address] Joana Avitia APRN, JUNIOR MECHANICAL ENGINEER-C [address] [facility] [address] [place] [address] Social History Tobacco Use Types Packs/Day Years [...] 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 Not on file Not on f ile documented as of this encounter Plan of Treatment Upcoming Encounters Date Type Department Care Team (Late st Contact Info) Description 10/03/2024 2:00 PM PIPE CUTTER Office Visit [facility] [address] [place] [address] Alexi Acuña MD [address] [place] [address] 10/03/2024 2:00 PM PIPE CUTTER Allied Health/Nurse Visit [facility] [address] [place] [address] Alexi Acuña MD [address] [place] [address] 11/09/2024 1:00 AM CDT Allied Health/Nurse Visit [facility] [address] [place] [address] Alexi Acuña MD [address] [place] [address] 06/20/2025 2:30 PM CDT [facility] [address] [place] [address] Joana Avitia, NASCAR DRIVER, JUNIOR MECHANICAL ENGINEER-C [address] [facility] [address] [place] [address] documented as of this encounter Procedures Procedure Name Priority Date/Time Associated Diagnosis Comments BASIC METABOLIC PANEL Routine 06/23/2018 documented in this encounter Results * (ABNORMAL) BASIC METABOLIC PANEL (06/23/2018) SODIUM S/P/B 139 POTASSIUM S/P/B 4.7 CO2 29 CHLORIDE S/P/B 99 GLUCOSE 235 mg/dL CALCIUM S/P/B 10.1 BUN 46 CREATININE S/P/B 1.74(A) 0.7 - 1.3 EGFR NON-AFR. AMER. 41 <=90 06/23/2018 us Doc [facility] LABORATORY Final Result documented in this encounter Visit Diagnoses Not on filedocumented in this encounter Additional Health Concerns Infection Onset Date Last Indicated Resolved Time COVID-19 Rule Out 03/11/2020 03/11/2020 03/13/2020 1:53 AM CDT documented as of this encounter Care Teams Retail Grocer Relationship Specialty Start Date End Date Mariam Esteban MD PCP - General SURGERY 07/21/16 08/19/19 Nagi Quintanilla MD [address] [place] [address] PCP - General FAMILY PRACTICE 09/27/19 01/30/20 Alonzo Campoverde MD [address] [place] [phone] PCP - General INTERNAL MEDICINE 01/31/20 Diomedes Pritchard MD [place] Water Tender CARDIOVASCULAR DISEASE 07/21/16 03/08/24 Joana Avitia APRN, JUNIOR MECHANICAL ENGINEER-C [address] [facility] [address] [place] [phone] NURSE PRACTITIONER 09/10/21 Diomedes Schwartz MD [address] [place] [address] [place], [place] [address] Vascular/Cardiologis t VASCULAR SURGERY 09/10/21 08/02/22 Bernardo Álvarez MD [address] [place] [address] Consulting Physician PULMONARY DISEASE 08/03/22 Alexi Acuña MD [address] [place] [address] Consulting Physician CLINICAL CARDIAC ELECTROPHYSIOLOGY 08/11/23 Violeta Brown PA-C [address] [place] [address] Referring Physician PHYSICIAN MANAGER MAINTENANCE 03/09/24 Rosa Saunders MD [address] [place] [address] INTERVENTIONAL CARDIOLOGY 06/25/24 documented as of this encounter
--- OUTSIDE RECORDS SUMMARY | 2024-09-29 11:31 | XMS_ITS | Clinical Summary ---
Author Organization [facility] Address [address] [place] [address] Phone Care Team Providers Care Gourmet Coffee Attendant Name Role Phone Alonzo Campoverde MD Primary Care Provider [phone] Allergies No known active allergies Medications Medication [...] (#1) 2024 , 05/06/2021, 05/22/2020 Care Teams Gourmet Coffee Attendant Relationship Specialty Start Date End Date Alonzo Campoverde MD [address] [place] [address] PCP - General Internal Medicine 06/25/20
--- OUTSIDE RECORDS SUMMARY | 2024-09-29 11:31 | XMS_ITS | Clinical Summary ---
Author Organization Unknown Care Team Providers Care Corncob Pipes Assembler Name Role Phone LEIGH ANN SANDS Unavailable Unavailable TRACY PHYSICAL THERAPIST, LINDA Unavailabl e Unavailable [facility] BIOANALYTICS CONSULTANT, MARGARITA Unavail able Unavailable TIA REGISTERED NURSE, RANDAL Unavailable Unavailable Payers Payer Name Policy Type Policy Number Effective Date Expira tion Date MEDICARE [place] - EPISODIC [id number] Problems Condition Name Condition Details Condition Category [...] [BMI] 31.0-31.9, ADULT Active 08-22 00:00: 00 COMBATANT DIVER OFFICER (CURRENT) USE OF ASPIRIN Active 08-22 00:00: 00 COMBATANT DIVER OFFICER (CURRENT) USE OF ORAL HYPOGLYCEMIC DRUGS Active [...] powder for inhalation 2023-08 00:00: 00 Yes [id number] COPD 1 inhalat ion ONCE DAILY 1 inhalation ONCE DAILY (route: inhalation ) Med Classific ation: Respirato ry Therapy Agents Aspirin Childrens 81 mg chewable tablet 2023-08 00:00: 00 Yes [id number] BLOOD CLOT PREVENTION 1 tablet ONCE DAILY 1 tablet ONCE DAILY (route: oral) Med Classific ation: Hematolog ical Agents Centrum Silver 400 mcg-250 mcg chewable tablet 2023-08 00:00: 00 Yes [id number] SUPPLEMENT 1 tablet ONCE DAILY 1 tablet ONCE DAILY (route: oral) Med Classific ation: Electroly te Balance-N utritiona l Products citalopram 10 mg tablet 2023-08 00:00: 00 Yes [id number] MOOD 1 tablet ONCE DAILY 1 tablet ONCE DAILY (route: oral) Med Classific ation: Central Nervous System Agents cranberry fruit 500 mg chewable tablet 2023-08 00:00: 00 Yes [id number] SUPPLEMENT 2 tablet ONCE DAILY 2 tablet ONCE DAILY (route: oral) Med Classific ation: Alternati ve Therapy donepezil 10 mg tablet 2023-08 00:00: 00 Yes [id number] DEMENTIA 1 tablet ONCE DAILY 1 tablet ONCE DAILY (route: oral) Med Classific ation: Cognitive Disorder Therapy furosemide 20 mg tablet 2023-08 00:00: 00 Yes [id number] EDEMA 1 tablet ONCE DAILY 1 tablet ONCE DAILY (route: oral) Med Classific ation: Cardiovas cular Therapy Agents loratadine 10 mg capsule 2023-08 00:00: 00 Yes [id number] ALLERGIES 1 capsule ONCE DAILY 1 capsule ONCE DAILY (route: oral) Med Classific ation: Respirato ry Therapy Agents magnesium 400 mg (as magnesium oxide) capsule 2023-08 00:00: 00 Yes [id number] SUPPLEMENT 1 capsule TWICE DAILY 1 capsule TWICE DAILY (route: oral) Med Classific ation: Electroly te Balance-N utritiona l Products memantine 10 mg tablet 2023-08 00:00: 00 Yes [id number] DEMENTIA 1 tablet TWICE DAILY 1 tablet TWICE DAILY (route: oral) Med Classific ation: Cognitive Disorder Therapy oxybutynin chloride 5 mg tablet 2023-08 00:00: 00 Yes [id number] BLADDER CONTROL 1 tablet 3 TIMES DAILY 1 tablet 3 TIMES DAILY (route: oral) Med Classific ation: Genitouri nary Therapy oxycodone-a cetaminophe n 5 mg-325 mg tablet 2023-08 00:00: 00 Yes [id number] PAIN 0.5-1 tablet EVERY 4 HOURS 0.5-1 tablet EVERY 4 HOURS (route: oral) Med Classific ation: Analgesic , Anti-infl ammatory or Antipyret ic potassium chloride ER 10 mEq capsule,ext ended release 2023-08 00:00: 00 Yes [id number] HYPOKALEMIA 1 capsule ONCE DAILY 1 capsule ONCE DAILY (route: oral) Med Classific ation: Electroly te Balance-N utritiona l Products rosuvastati n 20 mg tablet 2023-08 00:00: 00 Yes [id number] HIGH CHOLESTEROL 1 tablet ONCE DAILY 1 tablet ONCE DAILY (route: oral) Med Classific ation: Cardiovas cular Therapy Agents Rybelsus 3 mg tablet 2023-08 00:00: 00 Yes [id number] DIABETES MELLITUS 1 tablet DIRECTED 1 tablet [...] THEIR ABSENCE. ] Future Scheduled [facility] TEACH PATIENT/CAREGIVER [...] BREATH, OR FATIGUE.] Future Scheduled Test [facility]SE WILL INSTRUCT ABOUT [...] WILL BE ESTABLISHED THAT MEETS ALL PATIENT'S CORRECTION NEEDS AND COUNTER SIGNED BY PHYSICIAN. Goal [...] 2024-10-14 00:00:00 Outpatient NEW ADMISSION [facility] [id number] 39.58
[2024-09-29 12:37] LABS: Phosphorus 3.2 mg/dL (2.6-4.7)
[2024-10-01 09:44] LABS: Ionized Calcium 5.5 mg/dL (4.7-5.5)
[2024-10-01 12:59] LABS: Parathyroid Intact 82 pg/mL (16-77)
[2024-10-02 13:03] LABS: Albumin 3.9 g/dL (3.8-4.8); Alpha 1 Globulin 0.3 g/dL (0.2-0.3); Alpha 2 Globulin 0.9 g/dL (0.5-0.9); Beta 1 Globulin 0.4 g/dL (0.4-0.6)
[2024-10-02 19:33] LABS: Immunofixation, Serum Normal pattern.
== END 2024-09-29 11:27 | disposition home or self-care (01) ==
LOC: CHSLAB 11:28
PROVIDERS: PCP Internal Medicine; Visit Provider Internal Medicine
DX: E83.52 Hypercalcemia (principal)
CPT/HCPCS: 36415; 82330; 83970; 84100; 84155; 84165; 86334

== ENCOUNTER 2025-01-02 11:58 | Outpatient (CLI) | payer MEDICARE, SELFPAY ==
--- OUTSIDE RECORDS SUMMARY | 2025-01-02 12:02 | XMS_ITS | Clinical Summary ---
Author Organization [facility] Address [address] [place] [address] Phone Care Team Providers Care Tube Winder Name Role Phone Alonzo Campoverde MD Primary Care Provider [phone] Allergies No known active allergies Medications loratadine (CLARITIN) 10 MG tablet 1 daily 0 10/22/2016 Active memantine (NAMENDA) 10 MG tablet 1 daily 0 01/12/2018 Active Multiple Vitamin (MULTIVITAMIN) capsule 1 daily 0 10/22/2016 Active rosuvastatin (CRESTOR) 20 MG tablet 1 dialy 0 06/21/2018 Active aspirin (ASPIR-LOW) 81 MG EC tablet 1 daily 0 10/22/2016 Active citalopram (CeleXA) 40 MG tablet 10/31/2019 Active Fluticasone-Umec lidin-Vilant 100-62.5-25 MCG/INH aerosol powder Inhale Active albuterol HFA (PROVENTIL HFA) 108 (90 Base) MCG/ACT inhaler 06/17/2020 Act thang clopidogrel (PLAVIX) 75 MG tablet 04/07/2020 Active metoprolol succinate XL (TOPROL-XL) 50 MG 24 hr tablet 06/15/2020 Act thagn furosemide (LASIX) 40 MG tablet Take 40 [...] aneurysm without rupture 2016 Dyslipidemia 10/25/2016 Immunizations Immunization Administration Dates Next Due Influenza TIV (IM) [...] at Not on file Legal Sex Male 9:18 AM [facility] Gender Identity Not on file Sexual Orientation [...] Comments Pneumococcal PPSV23/PCV13 65 + Years / Low and Medium Risk (1 of 4 - PCV) 01/27/1996 Influenza Vaccine (Season Ended) 2025 06/05/2022, 05/06/2021, 05/22/2020 Insurance MEDICARE [facility] Care Teams Tube Winder Relationship Specialty Start Date End Date Alonzo Campoverde MD [address] [place] [address] PCP - General Internal Medicine 06/25/20
--- OUTSIDE RECORDS SUMMARY | 2025-01-02 12:02 | XMS_ITS | Referral Summary ---
Author Organization [facility] Address [address] [place] [address] Care Team Providers Care Home Care Associate Name Role Phone Mariam Esteban MD Primary Care Provider [phone] Encounters Date Type Department Care Team Description 12/12/2024 Orders Only [facility] Vascular at [address] [place] [address] Marya Granados MD Infrarenal abdominal aortic aneurysm (AAA) without rupture (Primary Dx) 12/12/2024 10:00 AM CDT Office Visit [facility] V[facility] at [address] [place] [phone] Ruma Sanders PA Infrarenal abdominal aortic aneurysm (AAA) without rupture (Primary Dx); Hyperlipidemia, unspecified hyperlipidemia type 12/06/2024 10:00 AM CDT Ancillary Procedure [facility] Vascular and Vein Surgery at [address] [place] [phone] Infrarenal abdominal aortic aneurysm (AAA) without rupture from Last 3 Months Allergies No known active allergies Medications rosuvastatin [...] mouth 3 (three) times a day Active multivit-min/FA /lycopen/lutein (CENTRUM SILVER ULTRA MEN'S ORAL) Take 1 tablet by mouth daily 8 Active umeclidinium-vi lanteroL (ANORO ELLIPTA) 62.5-25 mcg/actuation blister with device Inhale Active oxyBUTYnin (DITROPAN) 5 mg tablet Take 1 tablet (5 mg total) by mouth 3 (three) times a day 3 Active Rybelsus 3 mg tablet Take 1 tablet (3 mg total) by mouth building economist before breakfast 3 Active donepeziL (ARICEPT) 10 mg tablet TAKE 1 TABLET BY MOUTH EVERYDAY AT BEDTIME 90 tablet 3 4 Active loratadine (CLARITIN) 10 mg tablet Take 1 tablet (10 mg total) by mouth daily Active cranberry fruit 500 mg tablet,chewable Take by mouth Active nitrofurantoin monohydrate (MACROBID) 100 mg capsule TAKE 1 CAPSULE BY MOUTH EVERY 12 HOURS WITH FOOD 4 12/13/19 25 Discontinu ed(Patient Reported) sulfamethoxazol e-trimethoprim (BACTRIM DS) 800-160 mg per tablet Take 1 tablet by mouth every 12 (twelve) hours 4 12/13/19 25 Discontinu ed(Patient Reported) Active Problems Problem Noted Date Diagnosed Date Alzheimer's disease with late onset 03/21/2023 Primary hypertension 12/01/2022 Assessment & Plan (12/07/2023 9:59 AM CDT): Stable on metoprolol 50 mg. Assessment & Plan (12/01/2022 10:57 AM CDT): Stable continue metoprolol 50 mg. Sleep apnea 10/18/2022 Presence of coronary angioplasty implant and gra ft 09/07/2021 Arteriosclerosis of coronary artery 06/20/2020 Assessment & Plan (10/19/2022 1:02 PM WEBSPHERE COMMERCE ARCHITECT): Stable continue ASA 81 mg. Stage 3a chronic kidney disease 12/26/2019 Hyperlipidemia 12/15/2016 Assessment & Plan (12/01/2022 10:57 AM CDT): Stable continue Crestor 20 mg. Assessment & Plan (10/19/2022 1:02 PM WEBSPHERE COMMERCE ARCHITECT): Stable continue Crestor 20 mg. DUGAN (dyspnea [...] year. Assessment & Plan (10/19/2022 1:03 PM WEBSPHERE COMMERCE ARCHITECT): Status post EVAR with an Endologix stent graft by Dr. Schwartz at [facility] with a right groin cutdown, has [...] on file Legal Sex Male 12:19 AM WEBSPHERE COMMERCE ARCHITECT Gender Identity Not on file Sexual Orientation Not on file Last Filed Vital Signs Vital Sign Reading Time Taken Comments Blood Pressure 140/74 12/12/2024 10:31 AM CDT Pulse 55 12/12/2024 10:31 AM CDT Temperature - - Respiratory Rate 18 03/21/2024 11:37 AM CDT Oxygen Saturation 97% 12/12/2024 10:31 AM CDT Inhaled Oxygen Concentration - - Weight 102.1 kg (225 lb) 12/12/2024 10:31 AM CDT Height 185.4 cm (6' 1 ) 12/12/2024 10:31 AM CDT Body Mass Index 29.69 12/12/2024 10:31 AM CDT Plan of Treatment Not on file Procedures Procedure Name Priority Date/Time Associated Diagnosis Comments US DUPLEX SCAN AORTA, IVC ILIAC COMPLETE Schedule Routine, Read Routine (OP Routine) 12/06/2024 10:39 AM CDT Infrarenal abdominal aortic aneurysm (AAA) without rupture from Last 3 Months Results * US Duplex Scan Aorta, IVC Iliac Complete (12/06/2024 10:39 AM CDT) Anatomical Region Laterality Modality Vascular N/A Ultrasound 12/06/2024 10:0 4 AM CDT Narrative 12/07/2024 11:22 AM CDT Vascular & Vein Surgery [address] [place] [address] Abdominal Aortic Duplex Ultrasound Report Patient Name: KATLIN COLEMAN R : 1945 Study Date: 12/06/2024 10:04:59 AM Gender: M Operating Room Manager: VIDHYA Location: [facility] Ref Provider: MARYA GRANADOS Quality: Adequate Order Provider: MARYA GRANADOS PROCEDURES: Arterial Report: Abdominal Aorta Stent Graft Duplex. INDICATIONS: S/P EVAR 10/05/21. COMPARISONS: No change compared to prior study. The previous exam was completed on 12/06/23. STENTS: Velocities Value Aorta Prx PSV 71.00 cm/sec Aorta Mid PSV 66.00 cm/sec Rt Ext Iliac Prx PSV 107.00 cm/sec Rt Ext Iliac Dst PSV 127.00 cm/sec Lt Ext Iliac Prx PSV 118.00 cm/sec Lt Ext Iliac Dst PSV 117.00 cm/sec BYPASS: Velocities Value Aorta Prx AP Dim 2.37 cm Aorta Prx Trans Dim 2.33 cm Aorta Mid AP Dim 2.35 cm Aorta Mid Trans Dim 2.03 cm Aorta Dst AP Dim 3.15 cm Aorta Dst Trans Dim 3.57 cm Rt Com Iliac Prx AP Dim 1.37 cm Rt Com Iliac Prx Trans Dim 1.38 cm Lt Com Iliac Prx AP Dim 1.18 cm Lt Com Iliac Prx Trans Dim 1.35 cm MEASUREMENTS: Stent Measurements Bypass Measurements Measurement Value Units Measurement Value Units Location EVAR Rt Limb Prx PSV 99.00 cm/sec Stent [place] Inflow PSV 62.00 cm/sec Rt Limb Dst PSV 106.00 cm/sec Stent Prx PSV 45.00 cm/sec Outflow [place] Artery PSV 107.00 cm/sec Stent Mid PSV 57.00 cm/sec Lt Limb Prx PSV 74.00 cm/sec Lt Limb Dst PSV 124.00 cm/sec Outflow [place] Artery PSV 129.00 cm/sec FINDINGS: Study Quality: Technically difficult. Abdominal Aorta: Infrarenal abdominal aortic aneurysm measurin.15 x 3.57 cm. Flow velocities and spectral waveforms are within normal limits. 2D and color Doppler demonstrate no evidence of endoleak. CONCLUSIONS: 1. Patent endovascular abdominal aortic aneurysm repair. Aneurysm measuring 3.57 cm. No evidence of endoleak. ATTESTATION: I have reviewed and interpreted the pertinent images and measurements of this study. I attest to the conclusions in the final report that is provided above. Electronically Signed By: Marya Granados MD 12/07/2024 10:23:26 AM CDT Procedure Note Marya Granados MD - 12/07/2024 Vascular & Vein Surgery [address] [place] [address]. [place] [address] Abdominal Aortic Duplex Ultrasound Report Patient Name: KATLIN COLEMAN R : 1945 Study Date: 12/06/2024 10:04:59 AM Gender: M Operating Room Manager: Location: [facility] Ref Provider: MARYA GRANADOS Quality: Adequate Order Provider: MARYA GRANADOS PROCEDURES: Arterial Report: Abdominal Aorta Stent Graft Duplex. INDICATIONS: S/P EVAR 10/05/21. COMPARISONS: No change compared to prior study. The previous exam was completed on 12/06/23. STENTS: Velocities Value Aorta Prx PSV 71.00 cm/sec Aorta Mid PSV 66.00 cm/sec Rt Ext Iliac Prx PSV 107.00 cm/sec Rt Ext Iliac Dst PSV 127.00 cm/sec Lt Ext Iliac Prx PSV 118.00 cm/sec Lt Ext Iliac Dst PSV 117.00 cm/sec BYPASS: Velocities Value Aorta Prx AP Dim 2.37 cm Aorta Prx Trans Dim 2.33 cm Aorta Mid AP Dim 2.35 cm Aorta Mid Trans Dim 2.03 cm Aorta Dst AP Dim 3.15 cm Aorta Dst Trans Dim 3.57 cm Rt Com Iliac Prx AP Dim 1.37 cm Rt Com Iliac Prx Trans Dim 1.38 cm Lt Com Iliac Prx AP Dim 1.18 cm Lt Com Iliac Prx Trans Dim 1.35 cm MEASUREMENTS: Stent Measurements Bypass Measurements Measurement Value Units Measurement Value Units Location EVAR Rt Limb Prx PSV 99.00 cm/sec Stent [place] Inflow PSV 62.00 cm/sec Rt Limb Dst PSV 106.00 cm/sec Stent Prx PSV 45.00 cm/sec Outflow [place] Artery PSV 107.00 cm/sec Stent Mid PSV 57.00 cm/sec Lt Limb Prx PSV 74.00 cm/sec Lt Limb Dst PSV 124.00 cm/sec Outflow [place] Artery PSV 129.00 cm/sec FINDINGS: Study Quality: Technically difficult. Abdominal Aorta: Infrarenal abdominal aortic aneurysm measurin.15 x 3.57 cm. Flowvelocities and spectral waveforms are within normal limits. 2D and color Dopplerdemonstrate no evidence of endoleak. CONCLUSIONS: 1. Patent endovascular abdominal aortic aneurysm repair. Aneurysmmeasuring 3.57 cm. No evidence of endoleak. ATTESTATION: I have reviewed and interpreted the pertinent images and measurements ofthis study. I attest to the conclusions in the final report that is provided above. Electronically Signed By: Marya Granados MD 12/07/2024 10:23:26 AM CDT Marya Granados MD IM US PROCEDURES Final Result from Last 3 Months Insurance MEDICARE MEDICARE [facility] MEDICARE SUPPLEMENT Care Teams Home Care Associate Relationship Specialty Start Date End Date Mariam Esteban MD [address] [place] [address] PCP - General 11/28/12
--- OUTSIDE RECORDS SUMMARY | 2025-01-02 12:02 | XMS_ITS | Encounter Summary ---
Author Organization [facility] Address [address] [place] [address] Care Team Providers Care Property Underwriter Name Role Phone Mariam Esteban MD Primary Care Provider Diomedes Alarcon MD Unavailable [phone] Nagi Quintanilla MD Primary Care Provider [phone] Alonzo Campoverde MD Primary Care Provider [phone] Joana Avitia APRN, CYLINDER SANDER OPERATOR-C Unavailable Diomedes Schwartz MD Unavailable Bernardo Álvarez MD Unavailable [phone] Alexi Acuña MD Unavailable [phone] Violeta Brown PA-C Unavailable [phone] Rosa Saunders MD Unavailable [phone] Encounter Details Date Type Department Care Team (Late st Contact Info) Description 11/05/2017 Abstract [facility] [address] [place] [address] , Generic Conversion, Social History Tobacco Use Types Packs/Day Years Used Date Smoking Tobacco: Never Alcohol Use Standard Drinks/Week Comments No 0 (1 standard drink = 0.6 oz pur e alcohol) Sex and Gender Information Value Date Recorded Sex Assigned at Male 10/03/2024 10:17 AM CHANGE CONTROL SPECIALIST Legal Sex Male 11:01 PM CDT Gender Identity Not on file Sexual Orientation Not on file 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 [address] [place] [address] Joana Avitia APRN, CYLINDER SANDER OPERATOR-C [address] [address] 10/02/2025 11:15 AM CHANGE CONTROL SPECIALIST Allied Health/Nurse Visit [facility] [address] [place] [address] Alexi Acuña MD [address] [place] [address] 10/02/2025 11:30 AM CHANGE CONTROL SPECIALIST Office Visit [facility] [address] [place] [address] Violeta Brown PA-C [address] [place] [address] documented as of this encounter Visit Diagnoses Not on filedocumented in this encounter Additional Health Concerns Infection Onset Date Last Indicated Resolved Time COVID-19 Rule Out 03/11/2020 03/11/2020 03/13/2020 1:53 AM CDT documented as of this encounter Care Teams Property Underwriter Relationship Specialty Start Date End Date Mariam Esteban MD PCP - General SURGERY 07/21/16 08/19/19 Nagi Quintanilla MD [address] [place], [place] [address] PCP - General FAMILY PRACTICE 09/27/19 01/30/20 Alonzo Campoverde MD [address] [place] [address] PCP - General INTERNAL MEDICINE 01/31/20 Diomedes Pritchard MD [address] [place] [address] Welches Finish Off Operator CARDIOVASCULAR DISEASE 07/21/16 03/08/24 Joana Avitia APRN, CYLINDER SANDER OPERATOR-C [address] [place] [address] NURSE PRACTITIONER 09/10/21 Diomedes Schwartz MD [address] [place] [address] Vascular/Cardiologis t VASCULAR SURGERY 09/10/21 08/02/22 Bernardo Álvarez MD [address] [place] [address] 388004 Consulting Physician PULMONARY DISEASE 08/03/22 Alexi Acuña MD [address] [place] [address] Consulting Physician CLINICAL CARDIAC ELECTROPHYSIOLOGY 08/11/23 Violeta Brown PA-C [address] [place] [address] Referring Physician PHYSICIAN BOARD CERTIFIED ORTHODONTIST 03/09/24 Rosa Saunders MD [address] [place] [address] INTERVENTIONAL CARDIOLOGY 06/25/24 documented as of this encounter
--- OUTSIDE RECORDS SUMMARY | 2025-01-02 12:02 | XMS_ITS | Encounter Summary ---
Author Organization [facility] Address [address] [place] [address] Care Team Providers Care Information Security Associate Name Role Phone Mariam Esteban MD Primary Care Provider Diomedes Alarcon MD Unavailable [phone] Nagi Quintanilla MD Primary Care Provider [phone] Alonzo Campoverde MD Primary Care Provider [phone] Joana Avitia APRN, DISTRICT ADVISER-C Unavailable [phone] Diomedes Schwartz MD Unavailable Bernardo Álvarez MD Unavailable [phone] Alexi Acuña MD Unavailable [phone] Violeta Brown-C Unavailable [phone] Rosa Saunders MD Unavailable [phone] Encounter Details Date Type Department Care Team (Late st Contact Info) Description 05/29/2018 Abstract [facility] [address] [place] [address] Diomedes Pritchard MD [address] [place] [address] Social History Tobacco Use Types Packs/Day Years Used Date Smoking Tobacco: Never Smokeless Tobacco: Never Alcohol Use Standard Drinks/Week Comments No 0 (1 standard drink = 0.6 oz pur e alcohol) Sex and Gender Information Value Date Recorded Sex Assigned at Male 10/03/2024 10:17 AM UX ENGINEER Legal Sex Male 11:01 PM CDT Gender Identity Not on file Sexual Orientation Not on file 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 Not on file Not on f ile documented as of this encounter Plan of Treatment Upcoming Encounters Date Type Department Care Team ([facility] st Contact Info) Description 02/01/2025 1:45 AM CDT Allied Health/Nurse Visit [facility] [address] [place] [address] Alexi Acuña MD [address] [place] [address] 06/20/2025 2:30 PM CDT Office Visit [facility] [address] [place] [address] Joana Avitia, ROSA, DISTRICT ADVISER-C [address] [facility] [address] [address] 10/02/2025 11:15 AM UX ENGINEER Allied Health/Nurse Visit [facility] [place] [address] [place] [address] Alexi Acuña MD [address] [place] [address] 10/02/2025 11:30 AM UX ENGINEER Office Visit [facility] [address] [place] [address] Violeta Brown, PA-C [address] [place] [address] documented as of this encounter Visit Diagnoses Not on filedocumented in this encounter Additional Health Concerns Infection Onset Date Last Indicated Resolved Time COVID-19 Rule Out 03/11/2020 03/11/2020 03/13/2020 1:53 AM CDT documented as of this encounter Care Teams Information Security Associate Relationship Specialty Start Date End Date Mariam Esteban MD PCP - General SURGERY 07/21/16 08/19/19 Nagi Quintanilla MD [address] [place], [place] [phone] PCP - General FAMILY PRACTICE 09/27/19 01/30/20 Alonzo Campoverde MD [address] [place] [address] PCP - General INTERNAL MEDICINE 01/31/20 Diomedes Pritchard MD [address] [place] [address] [place] Continuity Manager CARDIOVASCULAR DISEASE 07/21/16 03/08/24 Joana Avitia, ROSA, DISTRICT ADVISER-C [address] [place] [address] [address] [place] [address] NURSE PRACTITIONER 09/10/21 Diomedes Schwartz MD [address] [place] [address] Vascular/Cardiologis t VASCULAR SURGERY 09/10/21 08/02/22 Bernardo Á[place] [address] [place] [address] Consulting Physician PULMONARY DISEASE 08/03/22 Alexi Acuña MD [address] [place] [address] Consulting Physician CLINICAL CARDIAC ELECTROPHYSIOLOGY 08/11/23 Violeta Brown PA-C [address] [place] [address] Referring Physician PHYSICIAN HEALTH SAFETY INSTRUCTOR 03/09/24 Rosa Saunders MD [address] [place] [address] INTERVENTIONAL CARDIOLOGY 06/25/24 documented as of this encounter
--- OUTSIDE RECORDS SUMMARY | 2025-01-02 12:02 | XMS_ITS | Encounter Summary ---
Author Organization [facility] Address [address] [place] [address] Care Team Providers Care Sustainable Agriculture Faculty Name Role Phone Mariam Esteban MD Primary Care Provider Diomedes Alarcon MD Unavailable [phone] Nagi Quintanilla MD Primary Care Provider [phone] Alonzo Campoverde MD Primary Care Provider [phone] Joana Avitia APRN, RULING MACHINE FEEDER-C Unavailable Diomedes Schwartz MD Unavailable Bernardo Álvarez MD Unavailable [phone] Alexi Acuña MD Unavailable [phone] Violeta Brown-C Unavailable [phone] Rosa Saunders MD Unavailable [phone] Encounter Details Date Type Department Care Team (Late st Contact Info) Description 05/29/2018 Abstract [facility] [address] [place] [address] Joana Avitia APRN, RULING MACHINE FEEDER-C [address] [facility] [address] [place] [address] Social History Tobacco Use Types Packs/Day Years Used Date Smoking Tobacco: Never Smokeless Tobacco: Never Alcohol Use Standard Drinks/Week Comments No 0 (1 standard drink = 0.6 oz pur e alcohol) Sex and Gender Information Value Date Recorded Sex Assigned at Male 10/03/2024 10:17 AM DENTAL APPLIANCE MECHANIC Legal Sex Male 11:01 PM CDT Gender Identity Not on file Sexual Orientation Not on file 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 Not on file Not on f ile documented as of this encounter Plan of Treatment Upcoming Encounters Date Type Department Care Team (Late st Contact Info) Description 02/01/2025 1:45 AM CDT Allied Health/Nurse Visit [facility] [address] [place] [address] Alexi Acuña MD [address] [place] [address] 06/20/2025 2:30 PM CDT Office Visit [facility] [address] [place] [address] Joana Avitia APRN, RULING MACHINE FEEDER-C [address] [facility] [address] [address] 10/02/2025 11:15 AM DENTAL APPLIANCE MECHANIC Allied Health/Nurse Visit [facility] [place] [address] [place] [address] Alexi Acuña MD [address] [place] [address] 10/02/2025 11:30 AM DENTAL APPLIANCE MECHANIC Office Visit [facility] [place] [address] Violeta Brown, PA-C [address] [place] [address] documented as of this encounter Procedures Procedure [...] documented as of this encounter Care Teams Sustainable Agriculture Faculty Relationship Specialty Start Date End Date Mariam Esteban MD PCP - General SURGERY 07/21/16 08/19/19 Nagi Quintanilla MD [address] [place], [place] [phone] PCP - General FAMILY PRACTICE 09/27/19 01/30/20 Alonzo Campoverde MD [address] [place] [address] PCP - General INTERNAL MEDICINE 01/31/20 Diomedes Pritchard MD [address] [place] [address] Grader CARDIOVASCULAR DISEASE 07/21/16 03/08/24 Joana Avitia, LAB AID, RULING MACHINE FEEDER-C [address] [facility] [address] [place] [address] NURSE PRACTITIONER 09/10/21 Diomedes Schwartz MD [address] [place] [address] Vascular/Cardiologis t VASCULAR SURGERY 09/10/21 08/02/22 Bernardo Álvarez MD [address] [place] [address] Consulting Physician PULMONARY DISEASE 08/03/22 Alexi Acuña MD [address] [place] [address] Consulting Physician CLINICAL CARDIAC ELECTROPHYSIOLOGY 08/11/23 Violeta Brown PA-C [address] [place] [address] Referring Physician PHYSICIAN GAS ENGINE OPERATOR 03/09/24 Rosa Saunders MD [address] [place] [address] INTERVENTIONAL CARDIOLOGY 06/25/24 documented as of this encounter
--- OUTSIDE RECORDS SUMMARY | 2025-01-02 12:02 | XMS_ITS | Clinical Summary ---
Author Organization [facility] Address [address] [place] [address] Care Team Providers Care Laborer Demolition Name Role Phone Mariam Esteban MD Primary Care Provider [phone] Allergies No known active allergies Medications rosuvastatin [...] 1 tablet (3 mg total) by mouth tunnel heading inspector before breakfast 3 Active donepeziL (ARICEPT) 10 mg tablet TAKE 1 TABLET BY MOUTH EVERYDAY AT BEDTIME 90 tablet 3 4 Active loratadine (CLARITIN) 10 mg tablet Take 1 tablet (10 mg total) by mouth daily Active cranberry fruit 500 mg tablet,chewable Take by mouth Active nitrofurantoin monohydrate (MACROBID) 100 mg capsule TAKE 1 CAPSULE BY MOUTH EVERY 12 HOURS WITH FOOD 12/13/19 Discontinu ed(Patient Reported) sulfamethoxazol e-trimethoprim (BACTRIM DS) 800-160 mg per tablet Take 1 tablet by mouth every 12 (twelve) hours 4 12/13/19 Discontinu ed(Patient Reported) Active Problems Problem Noted [...] 06/20/2020 Assessment & Plan (10/19/2022 1:02 PM TRANSVERSE ABDOMINAL MUSCLE NURSE): Stable continue ASA 81 mg. Stage 3a chronic kidney disease 12/26/2019 Hyperlipidemia 12/15/2016 Assessment & Plan (12/01/2022 10:57 AM CDT): Stable continue Crestor 20 mg. Assessment & Plan (10/19/2022 1:02 PM TRANSVERSE ABDOMINAL MUSCLE NURSE): Stable continue Crestor 20 mg. DUGAN (dyspnea [...] year. Assessment & Plan (10/19/2022 1:03 PM TRANSVERSE ABDOMINAL MUSCLE NURSE): Status post EVAR with an Endologix stent graft by Dr. Schwartz at [facility] with a right groin cutdown, has been doing well since his aneurysm repair. CTA abdomen pelvis ordered for surveillance. We will follow-up after further imaging. Calculus of kidney 10/25/2016 Dyslipidemia 10/25/2016 Assessment & Plan (12/07/2023 9:59 AM CDT): Stable continue Crestor 20 mg. Encounters Date Type Department Care Team Description 12/12/2024 10:00 AM CDT Office Visit [facility] at [address] [place] [address] Ruma Sanders PA Infrarenal abdominal aortic aneurysm (AAA) without rupture (Primary Dx); Hyperlipidemia, unspecified hyperlipidemia type 12/12/2024 Orders Only [facility] at [address] [place] [address] Marya Granados MD Infrarenal abdominal aortic aneurysm (AAA) without rupture (Primary Dx) 12/06/2024 10:00 AM CDT Ancillary Procedure [facility] and Vein Surgery at [address] [place] [address] Infrarenal abdominal aortic aneurysm (AAA) without rupture from Last 3 Months Surgical History Surgery Date Site/Laterality Comments HERNIA [...] on file Legal Sex Male 12:19 AM TRANSVERSE ABDOMINAL MUSCLE NURSE Gender Identity Not on file Sexual Orientation [...] 12/12/2024 10:31 AM CDT Plan of Treatment Health Maintenance Due Date Last Done Comments Depression Screening 1945 Fall Risk Assessment 1945 Hepatitis C Screening 1945 Hepatitis B Screening 01/27/1964 Zoster Vaccine (1 of 2) 01/27/1996 Well Visit 65+ 2011 Covid-19 Vaccine (5 - 2023-2 5 season) 2024 05/23/2022, 05/26/2021, 10/15/2020, Additional history exists Influenza Vaccine (Season Ended) 2025 06/05/2022, 05/23/2022, 05/06/2021, Additional history exists DTaP/Tdap/Td Vaccine (2 - Td or Tdap) 02/07/2032 02/06/2022 Pneumococcal vaccine 65+ Completed 04/22/2019, 05/23 Procedures Procedure Name Priority Date/Time Associated Diagnosis [...] 11:22 AM CDT Vascular & Vein Surgery [address] [place] [address]. [place] [address] Abdominal Aortic Duplex Ultrasound Report Patient Name: KATLIN COLEMAN R : 1945 Study Date: 12/06/2024 10:04:59 AM Gender: M Erecting Crane Operator: VIDHYA Location: [facility] Ref Provider: MARYA GRANADOS Quality: [...] Rt Limb Prx PSV 99.00 cm/sec Stent [place] Inflow PSV 62.00 cm/sec Rt Limb Dst PSV 106.00 cm/sec Stent Prx PSV 45.00 cm/sec Outflow [place] Artery PSV 107.00 cm/sec Stent Mid PSV 57.00 cm/sec Lt Limb Prx PSV 74.00 cm/sec Lt Limb Dst PSV 124.00 cm/sec Outflow [place] Artery PSV 129.00 cm/sec FINDINGS: Study Quality: [...] MD - 12/07/2024 Vascular & Vein Surgery [address] [place] [address]. [place] [address] Abdominal Aortic Duplex Ultrasound Report Patient Name: KATLIN COLEMAN R : 1945 Study Date: 12/06/2024 10:04:59 AM Gender: M Erecting Crane Operator: VIDHYA Location: [facility] Ref Provider: MARYA GRANADOS Quality: [...] Rt Limb Prx PSV 99.00 cm/sec Stent [place] Inflow PSV 62.00 cm/sec Rt Limb Dst PSV 106.00 cm/sec Stent Prx PSV 45.00 cm/sec Outflow [place] Artery PSV 107.00 cm/sec Stent Mid PSV 57.00 cm/sec Lt Limb Prx PSV 74.00 cm/sec Lt Limb Dst PSV 124.00 cm/sec Outflow [place] Artery PSV 129.00 cm/sec FINDINGS: Study Quality: [...] 12/07/2024 10:23:26 AM CDT Marya Granados MD [facility] PROCEDURES Final Result from Last 3 Months Insurance MEDICARE MEDICARE [facility] MEDICARE SUPPLEMENT Member Subscriber Plan / Payer (Ef fective 2023-Present) Name:Katlin Coleman Relation to Subscriber:Self Name:Katlin Coleman Payer ID:[id number] Group ID:[id number] Type:COMMERCIAL Address: [address] [place] [id number] Care Teams Laborer Demolition Relationship Specialty Start Date End Date Mariam Esteban MD [address] [place] [address] PCP - General 11/28/12
--- OUTSIDE RECORDS SUMMARY | 2025-01-02 12:02 | XMS_ITS | Encounter Summary ---
Author Organization [facility] Address [address] [place] [address] Care Team Providers Care Forest Manager Name Role Phone Mariam Esteban MD Primary Care Provider Diomedes Alarcon MD Unavailable [phone] Nagi Quintanilla MD Primary Care Provider [phone] Alonzo Campoverde MD Primary Care Provider [phone] Joana Avitia APRN, INFORMATION TECHNOLOGY TECHNICIAN-C Unavailable [phone] Diomedes Schwartz MD Unavailable Bernardo Álvarez MD Unavailable [phone] Alexi Acuña MD Unavailable [phone] Violeta Brown-C Unavailable [phone] Rosa Saunders MD Unavailable [phone] Encounter Details Date Type Department Care Team (Late st Contact Info) Description 05/31/2018 Abstract [facility] [address] [place] [address] Diomedes Pritchard MD [address] [place] [address] Social History Tobacco Use Types Packs/Day Years Used Date Smoking Tobacco: Never Smokeless Tobacco: Never Alcohol Use Standard Drinks/Week Comments No 0 (1 standard drink = 0.6 oz pur e alcohol) Sex and Gender Information Value Date Recorded Sex Assigned at Male 10/03/2024 10:17 AM QUILT STUFFER Legal Sex Male 11:01 PM CDT Gender Identity Not on file Sexual Orientation Not on file 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 [address] [place] [address] Alexi Acuña MD [address] [place] [address] 06/20/2025 2:30 PM CDT Office Visit [facility] [address] [place] [address] Joana Avitia, ROSA, INFORMATION TECHNOLOGY TECHNICIAN-C [address] [facility] [address] [address] 10/02/2025 11:15 AM QUILT STUFFER Allied Health/Nurse Visit [facility] [place] [address] [place] [address] Alexi Acuña MD [address] [place] [address] 10/02/2025 11:30 AM QUILT STUFFER Office Visit [facility] [address] [place] [address] Violeta Brown, PA-C [address] [place] [address] documented as of this encounter Procedures Procedure [...] documented as of this encounter Care Teams Forest Manager Relationship Specialty Start Date End Date Mariam Esteban MD PCP - General SURGERY 07/21/16 08/19/19 Nagi Quintanilla MD [address] [place], [place] [phone] PCP - General FAMILY PRACTICE 09/27/19 01/30/20 Alonzo Campoverde MD [address] [place] [address] PCP - General INTERNAL MEDICINE 01/31/20 Diomedes Pritchard MD [address] [place] [address] [place] Offset Pressman CARDIOVASCULAR DISEASE 07/21/16 03/08/24 Joana Avitia, ROSA, INFORMATION TECHNOLOGY TECHNICIAN-C [address] [place] [address] [address] [place] [address] NURSE PRACTITIONER 09/10/21 Diomedes Schwartz MD [address] [place] [address] Vascular/Cardiologis t VASCULAR SURGERY 09/10/21 08/02/22 Bernardo Á[place] [address] [place] [address] Consulting Physician PULMONARY DISEASE 08/03/22 Alexi Acuña MD [address] [place] [address] Consulting Physician CLINICAL CARDIAC ELECTROPHYSIOLOGY 08/11/23 Violeta Brown PA-C [address] [place] [address] Referring Physician PHYSICIAN EXPERIMENTAL BOX TESTER 03/09/24 Rosa Saunders MD [address] [place] [address] INTERVENTIONAL CARDIOLOGY 06/25/24 documented as of this encounter
--- OUTSIDE RECORDS SUMMARY | 2025-01-02 12:02 | XMS_ITS | Encounter Summary ---
Author Organization [facility] Address [address] [place] [address] Care Team Providers Care Rn Community Name Role Phone Mariam Esteban MD Primary Care Provider Diomedes Alarcon MD Unavailable [phone] Nagi Quintanilla MD Primary Care Provider [phone] Alonzo Campoverde MD Primary Care Provider [phone] Joana Avitia APRN, PLASTERING CONTRACTOR-C Unavailable [phone] Diomedes Schwartz MD Unavailable Bernardo Álvarez MD Unavailable [phone] Alexi Acuña MD Unavailable [phone] Violeta Brown-C Unavailable [phone] Rosa Saunders MD Unavailable Encounter Details Date Type Department Care Team (Late st Contact Info) Description 04/24/2015 Abstract [facility] [place] [address] [place] [address] Diomedes Pritchard MD [address] [place] [address] Social History Tobacco Use Types Packs/Day Years Used Date Smoking Tobacco: Never Alcohol Use Standard Drinks/Week Comments No 0 (1 standard drink = 0.6 oz pur e alcohol) Sex and Gender Information Value Date Recorded Sex Assigned at Male 10/03/2024 10:17 AM SERVER SYSTEMS ADMINISTRATOR Legal Sex Male 11:01 PM CDT Gender Identity Not on file Sexual Orientation Not on file 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 [place] [address] [address] 10/02/2025 11:15 AM SERVER SYSTEMS ADMINISTRATOR Allied Health/Nurse Visit [facility] [place] [address] [place] [address] Alexi Acuña MD [address] [place] [address] 10/02/2025 11:30 AM SERVER SYSTEMS ADMINISTRATOR Office Visit [facility] [address] [place] [address] Violeta Brown PA-C [address] [place] [address] documented as of this encounter Visit Diagnoses Not on filedocumented in this encounter Additional Health Concerns Infection Onset Date Last Indicated Resolved Time COVID-19 Rule Out 03/11/2020 03/11/2020 03/13/2020 1:53 AM CDT documented as of this encounter Care Teams Rn Community Relationship Specialty Start Date End Date Mariam Esteban MD PCP - General SURGERY 07/21/16 08/19/19 Nagi Quintanilla MD [address] [place], [place] [phone] PCP - General FAMILY PRACTICE 09/27/19 01/30/20 Alonzo Campoverde MD [address] [place] [address] PCP - General INTERNAL MEDICINE 01/31/20 Diomedes Pritchard MD [address] [place] [address] [place] Brake Drum Molder CARDIOVASCULAR DISEASE 07/21/16 03/08/24 Joana Avitia, ROSA, PLASTERING CONTRACTOR-C [address] [facility] [place] [address] [place] [address] NURSE PRACTITIONER 09/10/21 Diomedes Schwartz MD [address] [place] [address] [address] [place] [address] Vascular/Cardiologis t VASCULAR SURGERY 09/10/21 08/02/22 Bernardo Álvarez MD [address] [place] [address] Consulting Physician PULMONARY DISEASE 08/03/22 Alexi Acuña MD [address] [place], [place] [address] Consulting Physician CLINICAL CARDIAC ELECTROPHYSIOLOGY 08/11/23 Violeta Brown PA-C [address] [place] [address] Referring Physician PHYSICIAN BAKER TEST 03/09/24 Rosa Saunders MD [address] [place] [address] INTERVENTIONAL CARDIOLOGY 06/25/24 documented as of this encounter
--- OUTSIDE RECORDS SUMMARY | 2025-01-02 12:02 | XMS_ITS | Clinical Summary ---
Author Organization [facility] Address [address] [place] [address] Care Team Providers Care Slot Machine Repairer Name Role Phone Alonzo Campoverde MD Primary Care Provider [phone] Joana Avitia APRN, NP-C Unavailable Bernardo Álvarez MD Unavailable [phone] Alexi Acuña MD Unavailable [phone] Violeta Brown PA-C Unavailable [phone] Rosa Saunders MD Unavailable [phone] Allergies No known active allergies Medications Multiple [...] 01/25/2022 Active Semaglutide 3 MG Tab Take 1 tablet (3 mg total) by mouth 3 (three) times a week. [...] mEq total) by mouth daily. 02/02/2024 Active tamsulosin (FLOMAX) 0.4 MG Cap Take 1 capsule (0.4 mg total) by mouth daily. 05/30/2024 Active Active Problems Problem Noted Date Diagnosed Date Sinus bradycardia 04/04/2024 Atrial fibrillation, unspecified type ([facility] H HS/HCC) 10/24/2023 Implantable loop recorder present 09/13/2023 Typical atrial flutter ([facility]) 024 S/P ablation of atrial flutter 08/27/2023 Sepsis ([facility]) 05/15/2023 Status post endovascular aneurysm repair (EVAR) 11/07/2022 AAA (abdominal aortic aneurysm) without rupture 10/05/2021 S/P coronary artery stent placement 09/07/2021 Hyperlipidemia 12/15/2016 DUGAN (dyspnea on exertion) 11/20/2016 Sleep apnea S/P mitral valve repair Coronary artery disease Abdominal aortic aneurysm (AAA) Resolved Problems Problem Noted Date Diagnosed Date Resolved Date Mitral regurgitation 020 Encounters Date Type Department Care Team Description 12/27/2024 1:00 AM CDT Allied Health/Nurse Visit [facility] [address] [place] [address] Alexi Acuña MD 11/09/2024 1:00 AM CDT Allied Health/Nurse Visit [facility] [address] [place] [address] Alexi Acuña MD from Last 3 Months [...] place to sleep or slept in a fci (including now)? 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 Not on file Not on f ile Last Filed Vital Signs Vital Sign Reading Time Taken Comments Blood Pressure 138/70 10/03/2024 11:19 AM MOBILE HOME PARK MANAGER Pulse 58 10/03/2024 11:19 AM MOBILE HOME PARK MANAGER Temperature 35.9 C (96.6 F) 08/08/2023 12:06 PM MOBILE HOME PARK MANAGER Respiratory Rate 20 10/03/2024 11:1 9 AM MOBILE HOME PARK MANAGER Oxygen Saturation 97% 10/03/2024 11: 19 AM MOBILE HOME PARK MANAGER Inhaled Oxygen Concentration - - Weight 105.1 kg (231 lb 9.6 oz) 025 11:19 AM MOBILE HOME PARK MANAGER Height 185.4 cm (6' 1 ) 10/03/2024 11:1 9 AM MOBILE HOME PARK MANAGER Body Mass Index 30.56 10/03/2024 11:19 AM MOBILE HOME PARK MANAGER Plan of Treatment Upcoming Encounters Date Type Department Care Team (Late st Contact Info) Description 02/01/2025 1:45 AM CDT Allied Health/Nurse Visit [facility] [address] [place] [address] Alexi Acuña MD [address] [place] [address] 06/20/2025 2:30 PM CDT Office Visit [facility] [address] [place] [phone] Joana Avitia, ROSA, DIRECTOR STYLE-C [address] [facility] [address] [place] [phone] 10/02/2025 11:15 AM MOBILE HOME PARK MANAGER Allied Health/Nurse Visit [facility] [address] [place] [phone] Alexi Acuña MD [address] [place], [place] [address] 10/02/2025 11:30 AM MOBILE HOME PARK MANAGER Office Visit [facility] [place] [address] Violeta Brown PA-C [address] [place], [place] [phone] Health Maintenance Due Date Last Done Comments ASCVD LDL 1945 ASCVD Statin 1945 Hepatitis C 01/27/1964 DTaP, Tdap and Td Vaccines (1 - Tdap) 1965 Zoster Vaccines (1 of 2) 01/27/1996 Annual Medicare Wellness Visit 2011 Pneumococcal Vaccine: 50+ Years (2 of 2 - PCV) 04/22/2020 04/22/2019, 06/12/2015 RSV Immunization or 60+ Years (1 - 1-dose 75+ series) 2021 COVID-19 Vaccine ( season) 2024 05/26/2021, 10/15/2020, 09/24/2020 AAA SCREENING Completed 11/12/2022, 10/21, 11/21/2021, Additional [...] Gupta RN Medical Devices Implanted Type Area Him Assistant Device Identifier Shelf Expiration Date Model / Serial / Lot Holliday Proximal Endograft System Implanted:Qt y: 1 on 10/05/2021 by Tess Schwartz MD at [facility] Graft N/A: Aorta ENDOLOGIX [id number] 07/24/2022 A28-28/C 95-020 V / [id number] / Medtronic Linq Ii- 3 Implanted: by Alexi Acuña MD (Quantity not on file) Implantable Loop Recorder [employer] 10/21/2024 [id number] / [id number] / Description:DX: Suspected AF Cv Biotronik Orsiro Tomy Mid Lad- 0 Implanted:Qt y: 1 on 03/14/2020 by Dc Tipton MD Stent Coronary LAD BIOTRONIK 04/25/2021 [id number] / / [id number] [place] Viabahn 9mm X 59mm Stent Rt Eia-04/26/2023 Implanted: by Mega Cobb MD (Quantity not on file) Stent [employer] 06/22/2025 [id number] / [id number] / Afx2 Bifurcated Endograft System Implanted:Qt y: 1 on 10/05/2021 by Tess Schwartz MD at [facility] N/A: Aorta ENDOLOGIX [id number] 05/28/2023 [id number] /[id number] / [id number] / Description:Positioned in DI STAL AORTA Procedures Procedure [...] By: David Aviles MD, 11/23/2021 1:03 PM Tess Schwartz MD CT Final Result from Last 3 Months or Most Recently Relevant to Health Maintenance Insurance MEDICARE [facility] MEDICARE Advance Directives * Full Code (Latest [...] 11:39 AM 03/14/2020 6:59 PM Care Teams Slot Machine Repairer Relationship Specialty Start Date End Date Alonzo Campoverde MD [address] [place] [phone] PCP - General INTERNAL MEDICINE 01/31/20 Joana Avitia, CHECK WRITING MACHINE OPERATOR, DIRECTOR STYLE-C [address] [place] [phone] NURSE PRACTITIONER 09/10/21 Bernardo Álvarez MD [address] [place] [address] [phone] Consulting Physician PULMONARY DISEASE 08/03/22 Alexi Acuña MD [address] [place] [address] [phone] Consulting Physician CLINICAL CARDIAC ELECTROPHYSIOLOGY 08/11/23 Violeta Brown PA-C [address] [place] [address] Referring Physician PHYSICIAN PRODUCT MANAGER 03/09/24 Rosa Saunders MD [address] [place] [address] [phone] INTERVENTIONAL CARDIOLOGY 06/25/24
--- OUTSIDE RECORDS SUMMARY | 2025-01-02 12:02 | XMS_ITS | Encounter Summary ---
Author Organization [facility] Address [address] [place] [address] Care Team Providers Care Rehabilitation Worker Name Role Phone Mariam Esteban MD Primary Care Provider Diomedes Alarcon MD Unavailable [phone] Nagi Quintanilla MD Primary Care Provider [phone] Alonzo Campoverde MD Primary Care Provider [phone] Joana Avitia APRN, COLLEGE OR UNIVERSITY DEPARTMENT HEAD-C Unavailable Diomedes Schwartz MD Unavailable Bernardo Álvarez MD Unavailable [phone] Alexi Acuña MD Unavailable [phone] Violeta Brown-C Unavailable [phone] Rosa Saunders MD Unavailable [phone] Encounter Details Date Type Department Care Team (Latest Contact Info) Description 04/04/[address] 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 [address] [place] [address] Alexi Acuña MD [address] [place] [address] 06/20/2025 2:30 PM CDT Office Visit [facility] [address] [place] [address] Joana Avitia APRN, COLLEGE OR UNIVERSITY DEPARTMENT HEAD-C [address] [facility] [address] [address] 10/02/2025 11:15 AM SPEEDER TENDER Allied Health/Nurse Visit [facility] [address] [place] [address] Alexi Acuña MD [address] [place] [address] 10/02/2025 11:30 AM SPEEDER TENDER Office Visit [facility] [address] [place] [address] Violeta Brown PA-C [address] [place] [address] documented as of this encounter Visit Diagnoses Not on filedocumented in this encounter Additional Health Concerns Infection Onset Date Last Indicated Resolved Time COVID-19 Rule Out 03/11/2020 03/11/2020 03/13/2020 1:53 AM CDT documented as of this encounter Care Teams Rehabilitation Worker Relationship Specialty Start Date End Date Mariam Esteban MD PCP - General SURGERY 07/21/16 08/19/19 Nagi Quintanilla MD [address] [place] [address] PCP - General FAMILY PRACTICE 09/27/19 01/30/20 Alonzo Campoverde MD [address] [place] [phone] PCP - General INTERNAL MEDICINE 01/31/20 Diomedes Pritchard MD [address] [place] [phone] Boomer Clay Stain Mixer CARDIOVASCULAR DISEASE 07/21/16 03/08/24 Joana Avitia, ROSA, COLLEGE OR UNIVERSITY DEPARTMENT HEAD-C [address] [place] [address] [address] [place] [address] NURSE PRACTITIONER 09/10/21 Dioemdes Schwartz MD [address] [place] [address] [address] [place] [address] Vascular/Cardiologis t VASCULAR SURGERY 09/10/21 08/02/22 Bernardo Álvarez MD [address] [place] [address] Consulting Physician PULMONARY DISEASE 08/03/22 Alexi Acuña MD [address] [place] [address] 488371 Consulting Physician CLINICAL CARDIAC ELECTROPHYSIOLOGY 08/11/23 Violeta Brown PA-C [address] [place], [place] [phone] Referring Physician PHYSICIAN BLOCKER AND SEWER 03/09/24 Rosa Saunders MD [address] [place], [place] [phone] INTERVENTIONAL CARDIOLOGY 06/25/24 documented as of this encounter
[2025-01-02 12:38] LABS: Hematocrit 48.9 % (37.0-46.0); Hemoglobin 15.1 g/dL (12.4-15.3); Mean Corpuscular HGB Conc 30.9 g/dL (32-36); Mean Corpuscular Hemoglobin 26.6 pg (27.0-31.0); Mean Corpuscular Volume 86.2 fL (78.0-102.0); Mean Platelet Volume 10.5 fl (8.7-11.0); Platelet Count Result 135 K/mm3 (150-420); Red Blood Count 5.67 M/mm3 (4.70-6.10); Red Cell Distribution Width 13.2 % (11.6-14.4); White Blood Count 8.6 K/mm3 (4.8-10.8)
[2025-01-02 12:39] LABS: Add Urine Microscopic? YES; Appearance Urine Sl Cloudy (Clear); Bilirubin Urine Negative (Negative); Blood Urine Negative (Negative); Color Urine Light Yellow (Yellow); Glucose Urine UA Negative (Negative); Ketones Urine Negative (Negative); Leukocyte Esterase Ur 3+ (Negative); Nitrate Urine Negative (Negative); Protein Urine Negative (Negative); Urobilinogen Urine 0.2 mg/dL (0.2-1.0)
[2025-01-02 12:50] LABS: Bacteria Urine 3+ /hpf; RBC Urine None seen /hpf (0-2)
[2025-01-02 12:52] LABS: Total Protein Urine Random 20 mg/dL; Ur Ttl Prot Creatinine Ratio 0.34 mg/mg (0-0.20)
[2025-01-02 14:45] LABS: Albumin Level 4.1 g/dL (3.5-5.1); Anion Gap 6 mmol/L (4-12); Blood Urea Nitrogen 30 mg/dL (9-20); Calcium 10.3 mg/dL (8.4-10.2); Carbon Dioxide 28 mmol/L (22-30); Chloride 109 mmol/L (98-107); Estimated Glomerular Filt Rate 42; Glucose 117 mg/dL (65-110); Osmolality Calculated 303 mOsm/kg (285-295); Phosphorus 3.4 mg/dL (2.5-4.5); Potassium 4.8 mmol/L (3.4-5.0); Sodium 143 mmol/L (137-145); Uric Acid 6.4 mg/dL (3.5-8.5)
[2025-01-04 06:59] LABS: Parathyroid Intact 68 pg/mL (16-77)
== END 2025-01-02 11:59 | disposition home or self-care (01) ==
LOC: CHSLAB 12:00
PROVIDERS: PCP Internal Medicine; Visit Provider Internal Medicine Nephrology
DX: R82.81 Pyuria (principal); N18.31 Chronic kidney disease, stage 3a; N20.0 Calculus of kidney
CPT/HCPCS: 36415; 80069; 81001; 82570; 83970; 84156; 84550; 85027

== ENCOUNTER 2025-01-31 13:06 | Outpatient (CLI) | payer MEDICARE, SELFPAY ==
[2025-01-31 13:43] LABS: Anion Gap 6 mmol/L (4-12); Blood Urea Nitrogen 22 mg/dL (9-20); Calcium 10.1 mg/dL (8.4-10.2); Carbon Dioxide 31 mmol/L (22-30); Chloride 106 mmol/L (98-107); Estimated Glomerular Filt Rate 47; Glucose 106 mg/dL (65-110); Osmolality Calculated 299 mOsm/kg (285-295); Potassium 4.6 mmol/L (3.4-5.0); Sodium 143 mmol/L (137-145)
--- OUTSIDE RECORDS SUMMARY | 2025-01-31 13:43 | XMS_ITS | Clinical Summary ---
Author Organization [facility] Address [address] [place] [address] Care Team Providers Care Installation Coordinator Name Role Phone Mariam Esteban MD Primary Care Provider [phone] Allergies No known active allergies Medications rosuvastatin [...] 1 tablet (3 mg total) by mouth lead ingot molder before breakfast 3 Active donepeziL (ARICEPT) 10 mg tablet TAKE 1 TABLET BY MOUTH EVERYDAY AT BEDTIME 90 tablet 3 4 Active loratadine (CLARITIN) 10 mg tablet Take 1 tablet (10 mg total) by mouth daily Active cranberry fruit 500 mg tablet,chewable Take by mouth Active Active Problems Problem Noted Date Diagnosed [...] 06/20/2020 Assessment & Plan (10/19/2022 1:02 PM SENIOR TRAINING SPECIALIST): Stable continue ASA 81 mg. Stage 3a chronic kidney disease 12/26/2019 Hyperlipidemia 12/15/2016 Assessment & Plan (12/01/2022 10:57 AM CDT): Stable continue Crestor 20 mg. Assessment & Plan (10/19/2022 1:02 PM SENIOR TRAINING SPECIALIST): Stable continue Crestor 20 mg. DUGAN (dyspnea [...] year. Assessment & Plan (10/19/2022 1:03 PM SENIOR TRAINING SPECIALIST): Status post EVAR with an Endologix stent graft by Dr. Schwartz at [facility] with a right groin cutdown, has been doing well since his aneurysm repair. CTA abdomen pelvis ordered for surveillance. We will follow-up after further imaging. Calculus of kidney 10/25/2016 Dyslipidemia 10/25/2016 Assessment & Plan (12/07/2023 9:59 AM CDT): Stable continue Crestor 20 mg. Encounters Date Type Department Care Team Description 12/12/2024 10:00 AM CDT Office Visit [facility] Vascular at [address] [place] [address] Ruma Sanders PA Infrarenal abdominal aortic aneurysm (AAA) without rupture (Primary Dx); Hyperlipidemia, unspecified hyperlipidemia type 12/12/2024 Orders Only [facility] at [address] [place] [address] Marya Granados MD Infrarenal abdominal aortic aneurysm (AAA) without rupture (Primary Dx) 12/06/2024 10:00 AM CDT Ancillary Procedure [facility] Vascular and Vein Surgery at [address] [place] [address] Infrarenal abdominal aortic aneurysm (AAA) without rupture [...] on file Legal Sex Male 12:19 AM SENIOR TRAINING SPECIALIST Gender Identity Not on file Sexual Orientation [...] 10:31 AM CDT Height 185.4 cm (6' 1) 12/12/2024 10:31 AM CDT Body Mass Index [...] 11:22 AM CDT Vascular & Vein Surgery [address] [facility] [place] [address] Abdominal Aortic Duplex Ultrasound Report Patient Name: KATLIN COLEMAN R : 1945 Study Date: 12/06/2024 10:04:59 AM Gender: M Can Filling Room Sweeper: [id number] Location: [facility] Ref Provider: MARYA GRANADOS [...] Rt Limb Prx PSV 99.00 cm/sec Stent [place] Inflow PSV 62.00 cm/sec Rt Limb Dst PSV 106.00 cm/sec Stent Prx PSV 45.00 cm/sec Outflow [place] Artery PSV 107.00 cm/sec Stent Mid PSV 57.00 cm/sec Lt Limb Prx PSV 74.00 cm/sec Lt Limb Dst PSV 124.00 cm/sec Outflow [place] Artery PSV 129.00 cm/sec FINDINGS: Study Quality: [...] MD - 12/07/2024 Vascular & Vein Surgery [address] [place] [address] Abdominal Aortic Duplex Ultrasound Report Patient Name: KATLIN COLEMAN R : 1945 Study Date: 12/06/2024 10:04:59 AM Gender: M Can Filling Room Sweeper: [id number] Location: [facility] Provider: MARYA GRANADOS Quality: Adequate Order Provider: [...] Rt Limb Prx PSV 99.00 cm/sec Stent [place] Inflow PSV 62.00 cm/sec Rt Limb Dst PSV 106.00 cm/sec Stent Prx PSV 45.00 cm/sec Outflow [place] Artery PSV 107.00 cm/sec Stent Mid PSV 57.00 cm/sec Lt Limb Prx PSV 74.00 cm/sec Lt Limb Dst PSV 124.00 cm/sec Outflow [place] Artery PSV 129.00 cm/sec FINDINGS: Study Quality: [...] 12/07/2024 10:23:26 AM CDT Marya Granados MD [facility] PROCEDURES Final Result from Last 3 Months Insurance MEDICARE MEDICARE [facility] MEDICARE SUPPLEMENT Member Subscriber Plan / Payer (Ef fective 2023-Present) Name:Katlin Coleman Relation to Subscriber:Self Name:Katlin Coleman Payer ID:[id number] Group ID:[id number] Type:COMMERCIAL Address: [facility] [id number] [place] [id number] Care Teams Installation Coordinator Relationship Specialty Start Date End Date Mariam Esteban MD [address] [place] [address] PCP - General 11/28/12
--- OUTSIDE RECORDS SUMMARY | 2025-01-31 13:43 | XMS_ITS | Clinical Summary ---
Author Organization [facility] Address [address] [place] [address] Phone Care Team Providers Care Charge Hand Name Role Phone Alonzo Campoverde MD Primary Care Provider [phone] Allergies No known active allergies Medications loratadine [...] 50 MG 24 hr tablet 06/15/2020 Act thang furosemide (LASIX) 40 MG tablet Take 40 [...] on file Legal Sex Male 9:18 AM [facility] Gender Identity Not on file Sexual [...] Ended) 2025 06/05/2022, 05/06/2021, 05/22/2020 Insurance MEDICARE [facility] Care Teams Charge Hand Relationship Specialty Start Date End Date Alonzo Campoverde MD [address] [place] [address] PCP - General Internal Medicine 06/25/20
--- OUTSIDE RECORDS SUMMARY | 2025-01-31 13:43 | XMS_ITS | Referral Summary ---
Author Organization [facility] Address [address] [place] [address] Care Team Providers Care Digital Solution Architect Name Role Phone Mariam Esteban MD Primary Care Provider [phone] Encounters Date Type Department Care Team Description 12/12/2024 Orders Only [facility] Vascular at [address] [place] [phone] Marya Granados MD Infrarenal abdominal aortic aneurysm (AAA) without rupture (Primary Dx) 12/12/2024 10:00 AM CDT Office Visit [facility] Vascular at [address] [place] [phone] Ruma Sanders PA Infrarenal abdominal aortic aneurysm (AAA) without rupture (Primary Dx); Hyperlipidemia, unspecified hyperlipidemia type 12/06/2024 10:00 AM CDT Ancillary Procedure [facility] Vascular and Vein Surgery at [address] [place] [phone] Infrarenal abdominal aortic aneurysm (AAA) without [...] 1 tablet (3 mg total) by mouth box closing machine operator before breakfast 3 Active donepeziL (ARICEPT) 10 [...] 06/20/2020 Assessment & Plan (10/19/2022 1:02 PM DENTURE PACKER): Stable continue ASA 81 mg. Stage 3a chronic kidney disease 12/26/2019 Hyperlipidemia 12/15/2016 Assessment & Plan (12/01/2022 10:57 AM CDT): Stable continue Crestor 20 mg. Assessment & Plan (10/19/2022 1:02 PM DENTURE PACKER): Stable continue Crestor 20 mg. DUGAN (dyspnea [...] year. Assessment & Plan (10/19/2022 1:03 PM DENTURE PACKER): Status post EVAR with an Endologix stent graft by Dr. Schwartz at [facility] with a right groin cutdown, has been [...] on file Legal Sex Male 12:19 AM DENTURE PACKER Gender Identity Not on file Sexual Orientation [...] AM CDT Vascular & Vein Surgery [address] [place] [address] Abdominal Aortic Duplex Ultrasound Report Patient Name: KATLIN COLEMAN R : 1945 Study Date: 12/06/2024 10:04:59 AM Gender: M Network Systems Engineer: Location: [facility] Ref Provider: MARYA GRANADOS Quality: Adequate Order [...] Rt Limb Prx PSV 99.00 cm/sec Stent [place] Inflow PSV 62.00 cm/sec Rt Limb Dst PSV 106.00 cm/sec Stent Prx PSV 45.00 cm/sec Outflow [place] Artery PSV 107.00 cm/sec Stent Mid PSV 57.00 cm/sec Lt Limb Prx PSV 74.00 cm/sec Lt Limb Dst PSV 124.00 cm/sec Outflow [place] Artery PSV 129.00 cm/sec FINDINGS: Study Quality: [...] MD - 12/07/2024 Vascular & Vein Surgery [address] [place] [address]. [place] [address] Abdominal Aortic Duplex Ultrasound Report Patient Name: KATLIN COLEMAN R : 1945 Study Date: 12/06/2024 10:04:59 AM Gender: M Network Systems Engineer: VIDHYA Location: [facility] Ref Provider: MARYA GRANADOS [...] Rt Limb Prx PSV 99.00 cm/sec Stent [place] Inflow PSV 62.00 cm/sec Rt Limb Dst PSV 106.00 cm/sec Stent Prx PSV 45.00 cm/sec Outflow [place] Artery PSV 107.00 cm/sec Stent Mid PSV 57.00 cm/sec Lt Limb Prx PSV 74.00 cm/sec Lt Limb Dst PSV 124.00 cm/sec Outflow [place] Artery PSV 129.00 cm/sec FINDINGS: Study Quality: [...] 12/07/2024 10:23:26 AM CDT Marya Granados MD [facility] PROCEDURES Final Result from Last 3 Months Insurance MEDICARE MEDICARE [facility] MEDICARE SUPPLEMENT Care Teams Digital Solution Architect Relationship Specialty Start Date End Date Mariam Esteban MD [address] [place] [address] PCP - General 11/28/12
[2025-01-31 14:00] LABS: Vitamin D 25 Hydroxy 59.1 ng/mL
[2025-02-02 07:34] LABS: Calcium/Creatinine Ratio, Ur 178 mg/g creat (10-240); Urine Calcium, Random 15.3 mg/dL; Urine Creatinine, Random 86 mg/dL (20-320)
[2025-02-04 12:33] LABS: Angiotensin Converting Enzyme 43 U/L (9-67)
[2025-02-04 14:33] LABS: Vitamin D 1,25 (OH)2 Total 35 pg/mL (18-72); Vitamin D2 1,25 (OH)2 <8 pg/mL; Vitamin D3 1,25 (OH)2 35 pg/mL
== END 2025-01-31 13:07 | disposition home or self-care (01) ==
LOC: CHSLAB 13:09
PROVIDERS: PCP Internal Medicine; Visit Provider Internal Medicine Nephrology
DX: N18.9 Chronic kidney disease, unspecified (principal); E83.52 Hypercalcemia
CPT/HCPCS: 36415; 80048; 82164; 82306; 82310; 82570; 82652; 83519; 84590

== ENCOUNTER 2025-05-27 12:05 | Outpatient (CLI) | payer MEDICARE, SELFPAY ==
--- NOTE | ~2025-05-27 | XR_ITS ---
EXAMINATION: XR abdomen/kub 1V, 05/27/2025 12:15 CDT HISTORY: KIDNEY STONE L SIDE COMPARISON: No comparisons available. Technique: 3 view. Findings: Moderate fecal content limits evaluation, no dilated bowel loops. Left renal calculi the largest measuring 3 mm. No acute osseous abnormality. A endovascular stent noted. Impression: 1. No acute abnormality. Reviewed, dictated and finalized at location P. Impression: 1. No acute abnormality.
--- OUTSIDE RECORDS SUMMARY | 2025-05-27 13:15 | XMS_ITS | Clinical Summary ---
Author Organization [facility] Address [address] [place] [phone] Phone Care Team Providers Care Course Instructor Name Role Phone Alonzo Campoverde MD Primary Care Provider [phone] Allergies No known active allergies Medications loratadine [...] on file Legal Sex Male 9:18 AM [facility] Gender Identity Not on file Sexual Orientation [...] / Low and Medium Risk (1 of 2 - PCV) 01/27/1996 Influenza Vaccine (#1) 2025 2, 05/06/2021, 05/22/2020 Insurance MEDICARE [facility] Care Teams Course Instructor Relationship Specialty Start Date End Date Alonzo Campoverde MD [address] [place] [address] PCP - General Internal Medicine 06/25/20
--- OUTSIDE RECORDS SUMMARY | 2025-05-27 13:15 | XMS_ITS | Encounter Summary ---
Author Organization [facility] Address [address] [place] [address] Care Team Providers Care Manager Payer Name Role Phone Alonzo Campoverde MD Primary Care Provider Encounter Details Date Type Department Care Team ([facility] st Contact Info) Description 04/01/2025 Results Follow-Up [facility] [address] [facility] [address] [place] [phone] Denny Potter, ROTOR CASTING MACHINE SETUP OPERATOR [address] [facility] [address] [place] [address] CBC with auto differential, Vitamin D 25 hydroxy, Thyroid Function [place], Folate Social History Tobacco Use Types Packs/Day Years Used Date Smoking Tobacco: Never Passive Smoke Exposure: Never Smokeless Tobacco: Never Sex and Gender Information Value Date Recorded Sex Assigned at Not on file Legal Sex Male 12:19 AM PUBLIC HEALTH DOCTOR Gender Identity Not on file Sexual Orientation Not on file documented as of this encounter Miscellaneous Notes * Result Encounter Note - Mary Medley MA - 04/01/2025 9:05 AM CDT Called pt was disconnected. Sent my chart message. documented in this encounter Plan of Treatment Not on file documented as of this encounter Visit Diagnoses Not on filedocumented in this encounter Care Teams Manager Payer Relationship Specialty Start Date End Date Alonzo Campoverde MD [address] [place] [address] PCP - General Internal Medicine 03/21/25 documented as of this encounter
--- OUTSIDE RECORDS SUMMARY | 2025-05-27 13:15 | XMS_ITS | Clinical Summary ---
Author Organization [facility] Address [address] [place] [address] Care Team Providers Care Chef De Cuisine Name Role Phone Alonzo Campoverde MD Primary Care Provider [phone] Allergies No known active allergies Medications rosuvastatin [...] 1 tablet (3 mg total) by mouth seed and fertilizer specialist before breakfast 3 Active loratadine (CLARITIN) 10 mg tablet Take 1 tablet (10 mg total) by mouth daily Active cranberry fruit 500 mg tablet,chewable Take by mouth Active ezetimibe (ZETIA) 10 mg tablet Take 1 tablet (10 mg total) by mouth daily 5 Active donepeziL (ARICEPT) 10 mg tablet TAKE 1 TABLET BY MOUTH EVERYDAY AT BEDTIME 90 tablet 3 5 Active Active Problems Problem Noted Date Diagnosed [...] 06/20/2020 Assessment & Plan (10/19/2022 1:02 PM CHAIR AND COUCH MAKER): Stable continue ASA 81 mg. Stage 3a chronic kidney disease 12/26/2019 Hyperlipidemia 12/15/2016 Assessment & Plan (12/01/2022 10:57 AM CDT): Stable continue Crestor 20 mg. Assessment & Plan (10/19/2022 1:02 PM CHAIR AND COUCH MAKER): Stable continue Crestor 20 mg. DUGAN (dyspnea [...] year. Assessment & Plan (10/19/2022 1:03 PM CHAIR AND COUCH MAKER): Status post EVAR with an Endologix stent graft by Dr. Schwartz at [facility] with a right groin cutdown, has been doing well since his aneurysm repair. CTA abdomen pelvis ordered for surveillance. We will follow-up after further imaging. Calculus of kidney 10/25/2016 Dyslipidemia 10/25/2016 Assessment & Plan (12/07/2023 9:59 AM CDT): Stable continue Crestor 20 mg. Encounters Date Type Department Care Team Description 04/01/2025 Results Follow-Up [facility] [address] [place] [address] [address] [place] [address] Denny Potter NP CBC with auto differential, Vitamin D 25 hydroxy, Thyroid Function [place], Folate 03/21/2025 2:30 PM CDT Office Visit [facility] [address] [facility] [address] [place] [address] Denny Potter NP Alzheimer's disease with late onset (HCC) (Primary Dx); Memory loss; Vitamin D deficiency, unspecified from Last 3 Months Surgical History Surgery [...] on file Legal Sex Male 12:19 AM CHAIR AND COUCH MAKER Gender Identity Not on file Sexual Orientation Not on file Obstetrics History Last Filed Vital Signs Vital Sign Reading Time Taken Comments Blood Pressure 107/56 03/21/2025 2:50 PM CDT Pulse 53 03/21/2025 2:50 PM CDT Temperature - - Respiratory Rate 18 03/21/2024 11:3 7 AM CDT Oxygen Saturation 96% 03/21/2025 2:50 PM CDT Inhaled Oxygen Concentration - - Weight 100.8 kg (222 lb 3.2 oz) 03/21/2025 2:50 PM CDT Height 185.4 cm (6' 1) 03/21/2025 2:50 PM CDT Body Mass Index 29.32 03/21/2025 2:50 PM CDT Plan of Treatment Health Maintenance Due Date Last Done Comments Depression Screening 1945 Fall Risk Assessment 1945 Hepatitis C Screening 1945 Hepatitis B Screening 01/27/1964 Zoster Vaccine (1 of 2) 01/27/1996 Well Visit 65+ 2011 Covid-19 Vaccine (2024-2 6 season) 2025 05/23/2022, 05/26/2021, 10/15/2020, Additional history exists Influenza Vaccine (#1) 2025 , 05/23/2022, 05/06/2021, Additional history exists DTaP/Tdap/Td Vaccine (2 - Td or Tdap) 02/07/2032 02/06/2022 Pneumococcal vaccine 65+ Completed 04/22/2019, 05/23 Procedures Procedure Name Priority Date/Time Associated Diagnosis Comments VITAMIN D 25 HYDROXY Routine 03/22/2025 3:24 PM CDT Alzheimer's disease with late onset (HCC) Memory loss Vitamin D deficiency, unspecified FOLATE Routine 03/22/2025 11:28 AM CDT Alzheimer's disease with late onset (HCC) Memory loss THYROID FUNCTION CASCADE Routine 03/22/2025 11:28 AM CDT Alzheimer's disease with late onset (HCC) Memory loss CBC WITH AUTO DIFFERENTIAL Routine 03/22/2025 11:28 AM CDT Alzheimer's disease with late onset (HCC) Memory loss from Last 3 Months Results * Vitamin D 25 hydroxy (03/22/2025 3:24 PM CDT) Pathologist [facility] Vitamin D 25-OH 66 30 - 100 ng/mL [facility] Comment: Vitamin D Status 25-OH Vitamin D: Deficiency: <20 ng/mL Insufficiency: 20 - 29 ng/mL Optimal: > or = 30 ng/mL For 25-OH Vitamin D testing on patients on D2-supplementation and patients for whom quantitation of D2 and D3 fractions is required, the [facility](TM) 25-OH VIT D, (D2,D3), LC/MS/MS is recommended: order code [id number] (patients >2yrs). See Note 1 Note 1 For additional information, please refer to [email or web address]/faq/CYA737 (This link is being provided for informational/ educational purposes only.) Blood 03/22/2025 3:24 PM CDT 03/22/2025 3:24 PM CDT Denny Potter NP LAB BLOOD ORDERABLES Final Result Performing Organization Address City/[facility]/ZIP Co de Phone Number [facility] [address] [place] [address] * Thyroid Function [place] (03/22/2025 11:28 AM CDT) [facility] TSH 1.30 0.40 - 4.50 mIU/L [facility] Blood 03/22/2025 11:2 8 AM CDT 03/22/2025 11:29 AM CDT Denny Potter NP LAB BLOOD ORDERABLES Final Result Performing Organization Address [facility]/ZIP Co de Phone Number [facility] [address] [place] [address] * (ABNORMAL) CBC with auto differential (03/22/2025 11:28 AM CDT) [facility] WBC 6.5 3.8 - 10.8 Thousand/u L [facility] RBC, POC 5.73 4.20 - 5.80 Million/uL [facility] Hgb 15.5 13.2 - 17.1 g/dL [facility] Hct 50.0 38.5 - 50.0 % [facility] MCV 87.3 80.0 - 100.0 fL [facility] MCH 27.1 27.0 - 33.0 pg [facility] MCHC 31.0(L) 32.0 - 36.0 g/dL [facility] Comment: For adults, a slight decrease in the calculated MCHC value (in the range of 30 to 32 g/dL) is most likely not clinically significant; however, it should be interpreted with caution in correlation with other red cell parameters and the patient's clinical condition. Rdw 14.2 11.0 - 15.0 % [facility] Platelets 144 140 - 400 Thousand/u L [facility] MPV 10.8 7.5 - 12.5 fL [facility] Neutrophils, abs 3,127 1,500 - 7,800 cells/uL [facility] Lymphocytes, abs 2,581 850 - 3,900 cells/uL [facility] Monocyte abs 455 200 - 950 cells/uL [facility] Eosinophils, abs 286 15 - 500 cells/uL [facility] Basophils, abs 52 0 - 200 cells/uL [facility] Neutrophils 48.1 % [facility] Lymphocyte pct 39.7 % [facility] Monocytes 7.0 % [facility] Eosinophils 4.4 % [facility] Basophils 0.8 % [facility] Blood 03/22/2025 11:2 8 AM CDT 03/22/2025 11:29 AM CDT us Denny Potter OUTBOARD TECHNICIAN LAB BLOOD ORDERABLES Final Result [facility] [address] [address] [id number] * Folate (03/22/2025 11:28 AM CDT) Folate, Serum >24.0 ng/mL [facility] Comment: Reference Range Low: <3.4 Borderline: 3.4-5.4 Normal: >5.4 Blood 03/22/2025 11:2 8 AM CDT 03/22/2025 11:29 AM CDT Denny Potter OUTBOARD TECHNICIAN LAB BLOOD ORDERABLES Final Result [facility] [address] [id number] [address] [id number] from Last 3 Months Insurance MEDICARE [facility]ICARE [facility] MEDICARE SUPPLEMENT Care Teams Chef De Cuisine Relationship Specialty Start Date End Date Alonzo Campoverde MD [address] [place] [address] PCP - General Internal Medicine 03/21/25
== END 2025-05-27 12:06 | disposition home or self-care (01) ==
LOC: CHSIMG 12:08
PROVIDERS: PCP Internal Medicine; Visit Provider Urology
DX: N20.0 Calculus of kidney (principal)
CPT/HCPCS: 74018

== ENCOUNTER 2025-06-18 09:07 | Outpatient (CLI) | payer MEDICARE, SELFPAY ==
[2025-06-18 09:21] LABS: Hematocrit 49.1 % (37.0-46.0); Hemoglobin 15.2 g/dL (12.4-15.3); Mean Corpuscular HGB Conc 31.0 g/dL (32-36); Mean Corpuscular Hemoglobin 27.4 pg (27.0-31.0); Mean Corpuscular Volume 88.6 fL (78.0-102.0); Platelet Count Result 138 K/mm3 (150-420); Red Blood Count 5.54 M/mm3 (4.70-6.10); White Blood Count 7.9 K/mm3 (4.8-10.8)
[2025-06-18 09:37] LABS: Total Protein Urine Random 21 mg/dL; Ur Ttl Prot Creatinine Ratio 0.22 mg/mg (0-0.20)
[2025-06-18 09:38] LABS: Hemoglobin A1C 6.8 % (<5.7)
--- OUTSIDE RECORDS SUMMARY | 2025-06-18 09:49 | XMS_ITS | Clinical Summary ---
Author Organization [facility] Address [address] [place] [address] [address] Care [address] Project Manager Name Role Phone Alonzo Campoverde MD Primary Care Provider [phone] Joana Avitia APRN, NP-C Unavailable Bernardo Álvarez MD Unavailable [phone] Alexi Acuña MD Unavailable [phone] Violeta BrownC Unavailable [phone] Rosa Saunders MD Unavailable [phone] Allergies No known active allergies Medications [...] Sinus bradycardia 04/04/2024 Atrial fibrillation, unspecified type 10/24/2023 Implantable loop recorder present 09/13/2023 Typical atrial flutter 09/13/2023 S/P ablation of atrial flutter 08/27/2023 Sepsis 05/15/2023 Status post endovascular aneurysm repair (EVAR) 11/07/2022 AAA (abdominal aortic aneurysm) without rupture 10/05/2021 S/P coronary artery stent placement 09/07/2021 Hyperlipidemia 12/15/2016 DUGAN (dyspnea on exertion) 11/20/2016 Sleep apnea S/P mitral valve repair Coronary artery disease Abdominal aortic aneurysm (AAA) Resolved Problems Problem Noted Date Diagnosed Date Resolved Date Mitral regurgitation 020 Encounters Date Type Department Care Team Description 06/14/2025 1:15 AM CDT Allied Health/Nurse Visit [facility] [address] [place] [address] Alexi Acuña MD 05/20/2025 Telephone [facility] [address] [place] [address] Job Omer MD Reschedule 04/25/2025 3:00 AM CDT Allied Health/Nurse Visit [facility] [address] [place] [address] Alexi Acuña MD from Last 3 Months [...] place to sleep or slept in a half-way (including now)? 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 Not on file Not on f ile Last Filed Vital Signs Vital Sign Reading Time Taken Comments Blood Pressure 138/70 10/03/2024 11:19 AM ELECTRONIC SERVICE TECHNICIAN Pulse 58 10/03/2024 11:19 AM ELECTRONIC SERVICE TECHNICIAN Temperature 35.9 C (96.6 F) 08/08/2023 12:06 PM ELECTRONIC SERVICE TECHNICIAN Respiratory Rate 20 10/03/2024 11:1 9 AM ELECTRONIC SERVICE TECHNICIAN Oxygen Saturation 97% 10/03/2024 11: 19 AM ELECTRONIC SERVICE TECHNICIAN Inhaled Oxygen Concentration - - Weight 105.1 kg (231 lb 9.6 oz) 025 11:19 AM ELECTRONIC SERVICE TECHNICIAN Height 185.4 cm (6' 1) 10/03/2024 11:1 9 AM ELECTRONIC SERVICE TECHNICIAN Body Mass Index 30.56 10/03/2024 11:19 AM ELECTRONIC SERVICE TECHNICIAN Plan of Treatment Upcoming Encounters Date Type Department Care Team (Late st Contact Info) Description 07/30/2025 2:00 PM ELECTRONIC SERVICE TECHNICIAN Office Visit [facility] [place] [address] Job Omer MD [address] [facility] [address] [place] [address] 07/31/2025 3:15 AM ELECTRONIC SERVICE TECHNICIAN Allied Health/Nurse Visit [facility] [address] [place] [address] Alexi Acuña MD [address] [place], [place] [address] 10/02/2025 11:15 AM ELECTRONIC SERVICE TECHNICIAN Allied Health/Nurse Visit [facility] [address] [place] [address] Alexi Acuña MD [address] [place] [address] 10/02/2025 11:30 AM ELECTRONIC SERVICE TECHNICIAN Office Visit [facility] [address] [place] [address] Violeta Brown PA-C [address] [place], [place] [address] Health Maintenance Due Date Last Done Comments ASCVD LDL 1945 ASCVD Statin 1945 Hepatitis C 01/27/1964 DTaP, Tdap and Td Vaccines (1 - Tdap) 1965 Zoster Vaccines (1 of 2) 01/27/1996 Annual Medicare Wellness Visit 2011 Pneumococcal Vaccine: 50+ Years (2 of 2 - PCV) 04/22/2020 04/22/2019, 06/12/2015 RSV Immunization or 60+ Years (1 - 1-dose 75+ series) 2021 COVID-19 Vaccine (4 - season) 2025 05/26/2021, 10/15/2020, 09/24/2020 Influenza Adult (#1) 2025 06/05/2022, 05/05/2021, 05/26/2020 AAA SCREENING Completed 11/12/2022, 10/21, 11/21/2021, Additional history exists Hepatitis A Vaccines Aged Out No long er eligible based on patient's age to complete this topic Meningococcal B Vaccine Aged Out No l [...] patient able to perform ADLs independently General Amarilis Hurley RN Medical Devices Implanted Type Area Office Assistance Device Identifier Shelf Expiration Date Model / Serial / Lot Holliday Proximal Endograft System Implanted:Qt y: 1 on 10/05/2021 by Tess Payne MD at [facility] Graft N/A: Aorta ENDOLOGIX [id number] 07/24/2022 A28-28/C 95-020 V / [id number] / Medtronic Linq Ii- 3 Implanted: by Alexi Acuña MD (Quantity not on file) Implantable Loop Recorder [employer] 10/21/2024 [id number] / [id number] / Description:DX: Suspected AF Cv Biotronik Orsiro Tomy Mid Lad- 0 Implanted:Qt y: 1 on 03/14/2020 by Dc Tipton MD Stent Coronary LAD BIOTRONIK 04/25/2021 [id number] / / [id number] [place] Viabahn 9mm X 59mm Stent Rt Eia-04/26/2023 Implanted: by Mega Cobb MD (Quantity not on file) Stent [employer] 06/22/2025 [id number] / [id number] / [id number] Bifurcated Endograft System Implanted:Qt y: 1 on 10/05/2021 by Tess Payne MD at [facility] N/A: Aorta ENDOLOGIX [id number] 05/28/2023 [id number] /[id number] / [id number] / Description:Positioned in DI STAL AORTA [...] free air. Appendix normal. Referred By: TESS PAYNE Interpreted By: David Aviles MD, 11/23/2021 1:03 [...] free air. Appendix normal. Referred By: TESS PAYNE Interpreted By: David Aviles MD, 11/23/2021 1:03 PM Tess Payne MD CT Final Result from Last 3 Months or Most Recently Relevant to Health Maintenance Insurance MEDICARE [facility] MEDICARE Advance Directives * Full Code [...] 11:39 AM 03/14/2020 6:[address] Project Manager Relationship Specialty Start Date End Date Alonzo Campoverde MD [address] [place] [phone] PCP - General INTERNAL MEDICINE 01/31/20 Joana Avitia APRN, EMISSIONS TECHNICIAN-C [address] [place] [phone] NURSE PRACTITIONER 09/10/21 Bernardo Álvarez MD [address] [place] [address] Consulting Physician PULMONARY DISEASE 08/03/22 Alexi Acuña MD [address] [place] [address] Consulting Physician CLINICAL CARDIAC ELECTROPHYSIOLOGY 08/11/23 Violeta Brown PA-C [address] [place] [address] Referring Physician PHYSICIAN LAND DEGRADATION ANALYST 03/09/24 Rosa Saunders MD [address] [place] [address] INTERVENTIONAL CARDIOLOGY 06/25/24
--- OUTSIDE RECORDS SUMMARY | 2025-06-18 09:49 | XMS_ITS | Encounter Summary ---
Author Organization [facility] Address [address] [place] [address] Care Team Providers Care Molder Foam Rubber Name Role Phone Mariam Esteban MD Primary Care Provider Diomedes Alarcon MD Unavailable [phone] Nagi Quintanilla MD Primary Care Provider [phone] Alonzo Campoverde MD Primary Care Provider [phone] Joana Avitia APRN PRE PRESS OPERATOR-C Unavailable [phone] Diomedes Schwartz MD Unavailable Bernardo Álvarez MD Unavailable [phone] Alexi Acuña MD Unavailable [phone] Violeta Brown-C Unavailable [phone] Rosa Saunders MD Unavailable Encounter Details Date Type Department Care Team (Late st Contact Info) Description 04/24/2015 Abstract [facility] [address] [place] [address] Diomedes Pritchard MD [address] [place] [address] Social History Tobacco Use Types Packs/Day Years Used Date Smoking Tobacco: Never Alcohol Use Standard Drinks/Week Comments No 0 (1 standard drink = 0.6 oz pur e alcohol) Sex and Gender Information Value Date Recorded Sex Assigned at Male 10/03/2024 10:17 AM GEOGRAPHIC INFORMATION SYSTEMS DIRECTOR Legal Sex Male 11:01 PM CDT Gender Identity Not on file Sexual Orientation Not on file 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 Not on file Not on f ile documented as of this encounter Plan of Treatment Upcoming Encounters Date Type Department Care Team ([facility] st Contact Info) Description 07/30/2025 2:00 PM GEOGRAPHIC INFORMATION SYSTEMS DIRECTOR Office Visit [facility] [address] [place] [address] Job Omer MD [address] [facility] [address] [place] [address] 07/31/2025 3:15 AM GEOGRAPHIC INFORMATION SYSTEMS DIRECTOR Allied Health/Nurse Visit [facility] [address] [place] [address] Alexi Acuña MD [address] [place] [address] 10/02/2025 11:15 AM GEOGRAPHIC INFORMATION SYSTEMS DIRECTOR Allied Health/Nurse Visit [place] [address] [place] [address] Alxei Acuña MD [address] [place] [address] 10/02/2025 11:30 AM GEOGRAPHIC INFORMATION SYSTEMS DIRECTOR Office Visit [facility] [address] [place] [address] Violeta Brown PA-C [address] [place] [address] documented as of this encounter Visit Diagnoses Not on filedocumented in this encounter Additional Health Concerns Infection Onset Date Last Indicated Resolved Time COVID-19 Rule Out 03/11/2020 03/11/2020 03/13/2020 1:53 AM CDT documented as of this encounter Care Teams Molder Foam Rubber Relationship Specialty Start Date End Date Mariam Esteban MD PCP - General SURGERY 07/21/16 08/19/19 Nagi Quintanilla MD [address] [place] [address] PCP - General FAMILY PRACTICE 09/27/19 01/30/20 Alonzo Campoverde MD [address] [place] [address] PCP - General INTERNAL MEDICINE 01/31/20 Diomedes Pritchard MD [address] [place] [address] [place] P[employer] House Supervisor CARDIOVASCULAR DISEASE 07/21/16 03/08/24 Joana Avitia, ROUGE MIXER, PRE PRESS OPERATOR-C [address] [facility] [address] [place] [address] NURSE PRACTITIONER 09/10/21 Diomedes Schwartz MD [address] [place] [address] [address] [place], [place] [phone] Vascular/Cardiologis t VASCULAR SURGERY 09/10/21 08/02/22 Bernardo Álvarez MD [address] [place] [address] Consulting Physician PULMONARY DISEASE 08/03/22 Alexi Acuña MD [address] [place] [address] Consulting Physician CLINICAL CARDIAC ELECTROPHYSIOLOGY 08/11/23 Violeta Brown PA-C [address] [place], [place] [phone] Referring Physician PHYSICIAN ACCESS LIAISON 03/09/24 Rosa Saunders MD [address] [place] [phone] INTERVENTIONAL CARDIOLOGY 06/25/24 documented as of this encounter
--- OUTSIDE RECORDS SUMMARY | 2025-06-18 09:49 | XMS_ITS | Encounter Summary ---
Author Organization [facility] Address [address] [place] [address] Care Team Providers Care Shaker Plate Operator Name Role Phone Mariam Esteban MD Primary Care Provider Diomdees Alarcon MD Unavailable [phone] Nagi Quintanilla MD Primary Care Provider [phone] Alonzo Campoverde MD Primary Care Provider [phone] Joana Avitia APRN DISTRIBUTION OPERATION SUPERVISOR-C Unavailable [phone] Diomedes Schwartz MD Unavailable Bernardo Álvarez MD Unavailable [phone] Alexi Acuña MD Unavailable [phone] Violeta Brown-C Unavailable [phone] Rosa Saunders MD Unavailable [phone] Encounter Details Date Type Department Care Team (Late st Contact Info) Description 05/31/2018 Abstract [facility] [address] [place] [address] Diomedes Pritchard MD [address] [place] [address] Social History Tobacco Use Types Packs/Day Years Used Date Smoking Tobacco: Never Smokeless Tobacco: Never Alcohol Use Standard Drinks/Week Comments No 0 (1 standard drink = 0.6 oz pur e alcohol) Sex and Gender Information Value Date Recorded Sex Assigned at Male 10/03/2024 10:17 AM APPLICATIONS TESTER Legal Sex Male 11:01 PM CDT Gender Identity Not on file Sexual Orientation Not on file 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 Not on file Not on f ile documented as of this encounter Plan of Treatment Upcoming Encounters Date Type Department Care Team ([facility] st Contact Info) Description 07/30/2025 2:00 PM APPLICATIONS TESTER Office Visit [facility] [address] [place] [address] Job Omer MD [address] [facility] [address] [address] 07/31/2025 3:15 AM APPLICATIONS TESTER Allied Health/Nurse Visit [facility] [address] [place] [address] Alexi Acuña MD [address] [place] [address] 10/02/2025 11:15 AM APPLICATIONS TESTER Allied Health/Nurse Visit [place] [address] [place] [place] [address] Alexi Acuña MD [address] [place] [address] 10/02/2025 11:30 AM APPLICATIONS TESTER Office Visit [facility] [address] [place] [place] [address] Violeta Brown PA-C [address] [place] [address] documented as of this encounter Procedures Procedure [...] Indicated Resolved Time COVID-19 Rule Out 03/11/2020 03/11/202003/1303/13/2020 1:53 AM CDT documented as of this encounter Care Teams Shaker Plate Operator Relationship Specialty Start Date End Date Mariam Esteban MD PCP - General SURGERY 07/21/16 08/19/19 Nagi Quintanilla MD [address] [place], [place] [phone] PCP - General FAMILY PRACTICE 09/27/19 01/30/20 Alonzo Campoverde MD [address] [place] [address] PCP - General INTERNAL MEDICINE 01/31/20 Diomedes Pritchard MD [address] [place] [address] [place] Hand Alterations Seamstress CARDIOVASCULAR DISEASE 07/21/16 03/08/24 Joana Avitia, ROSA, DISTRIBUTION OPERATION SUPERVISOR-C [address] [facility] [address] [place] [address] NURSE PRACTITIONER 09/10/21 Diomedes Schwartz MD [address] [place] [address] [address] [place] [address] Vascular/Cardiologis t VASCULAR SURGERY 09/10/21 08/02/22 Bernardo Álvarez MD [address] [place] [address] Consulting Physician PULMONARY DISEASE 08/03/22 Alexi Acuña MD [address] [place], [place] [phone] Consulting Physician CLINICAL CARDIAC ELECTROPHYSIOLOGY 08/11/23 Violeta Brown PA-C [address] [place] [address] Referring Physician PHYSICIAN PROGRAMMER ENGINEERING AND SCIENTIFIC 03/09/24 Rosa Saunders MD [address] [place] [address] INTERVENTIONAL CARDIOLOGY 06/25/24 documented as of this encounter
--- OUTSIDE RECORDS SUMMARY | 2025-06-18 09:49 | XMS_ITS | Encounter Summary ---
Author Organization [facility] Address [address] [place] [address] Care Team Providers Care Senior Net Web Developer Name Role Phone Mariam Esteban MD Primary Care Provider Diomedes Alarcon MD Unavailable [phone] Nagi Quintanilla MD Primary Care Provider [phone] Alonzo Campoverde MD Primary Care Provider [phone] Joana Avitia APRN, INFORMATICS PHYSICIAN-C Unavailable Diomedes Schwartz MD Unavailable Bernardo Álvarez MD Unavailable [phone] Alexi Acuña MD Unavailable [phone] Violeta Brown-C Unavailable [phone] Rosa Saunders MD Unavailable [phone] Encounter Details Date Type Department Care Team (Late st Contact Info) Description 05/29/2018 Abstract [facility] [address] [place] [address] Joana Avitia APRN, INFORMATICS PHYSICIAN-C [address] 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 Not on file Not on f ile documented as of this encounter Plan of Treatment Upcoming Encounters Date Type Department Care Team (Late st Contact Info) Description 07/30/2025 2:00 PM LENS ENGRAVER Office Visit [facility] [place] [address] [place] [address] Job Omer MD [address] [facility] [address] [address] 07/31/2025 3:15 AM LENS ENGRAVER Allied Health/Nurse Visit [facility] [address] [place] [address] Alexi Acuña MD [address] [place] [address] [phone] 10/02/2025 11:15 AM LENS ENGRAVER Allied Health/Nurse Visit [place] [address] [place] [address] Alexi Acuña MD [address] [place] [address] 10/02/2025 11:30 AM LENS ENGRAVER Office Visit [facility] [place] [address] [place] [address] Violeta Brown PA-C [address] [place] [address] documented as of this encounter Procedures Procedure [...] documented as of this encounter Care Teams Senior Net Web Developer Relationship Specialty Start Date End Date Mariam Esteban MD PCP - General SURGERY 07/21/16 08/19/19 Nagi Quintanilla MD [address] [place], [place] [phone] PCP - General FAMILY PRACTICE 09/27/19 01/30/20 Alonzo Campoverde MD [address] [place] [address] PCP - General INTERNAL MEDICINE 01/31/20 Diomedes Pritchard MD [address] [place] [address] [place] Spinning Machine Tender CARDIOVASCULAR DISEASE 07/21/16 03/08/24 Joana Avitia, CO FOUNDER, INFORMATICS PHYSICIAN-C [address] [facility] [address] [place] [address] NURSE PRACTITIONER 09/10/21 Diomedes Schwartz MD [address] [place] [address] 948389 Vascular/Cardiologis t VASCULAR SURGERY 09/10/21 08/02/22 Bernardo Álvarez MD [address] [place] [address] Consulting Physician PULMONARY DISEASE 08/03/22 Alexi Acuña MD [address] [place] [address] Consulting Physician CLINICAL CARDIAC ELECTROPHYSIOLOGY 08/11/23 Violeta Brown PA-C [address] [place] [address] Referring Physician PHYSICIAN BETTING CLERK 03/09/24 Rosa Saunders MD [address] [place] [address] INTERVENTIONAL CARDIOLOGY 06/25/24 documented as of this encounter
--- OUTSIDE RECORDS SUMMARY | 2025-06-18 09:49 | XMS_ITS | Encounter Summary ---
Author Organization [facility] Address [address] [place] [address] Care Team Providers Care Verifying Specialist Name Role Phone Mariam Esteban MD Primary Care Provider Diomedes Alracon MD Unavailable [phone] Nagi Quintanilla MD Primary Care Provider [phone] Alonzo Campoverde MD Primary Care Provider [phone] Joana Avitia APRN, PREPARATION PLANT SUPERVISOR-C Unavailable Diomedes Schwartz MD Unavailable Bernardo Álvarez MD Unavailable [phone] Alexi Acuña MD Unavailable [phone] Violeta Brown PA-C Unavailable [phone] Rosa Saunders MD Unavailable [phone] Encounter Details Date Type Department Care Team (Late st Contact Info) Description 11/05/2017 Abstract [facility] [address] [place] [address] , Generic Conversion, Social History Tobacco Use Types Packs/Day Years Used Date Smoking Tobacco: Never Alcohol Use Standard Drinks/Week Comments No 0 (1 standard drink = 0.6 oz pur e alcohol) Sex and Gender Information Value Date Recorded Sex Assigned at Male 10/03/2024 10:17 AM LEAF CONDITIONER HELPER Legal Sex Male 11:01 PM CDT Gender Identity Not on file Sexual Orientation Not on file 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 Not on file Not on file Not on f ile documented as of this encounter Plan of Treatment Upcoming Encounters Date Type Department Care Team (Late st Contact Info) Description 07/30/2025 2:00 PM LEAF CONDITIONER HELPER Office Visit [facility] [place] [address] [place] [address] Job Omer MD [address] [facility] [address] [place] [address] 07/31/2025 3:15 AM LEAF CONDITIONER HELPER Allied Health/Nurse Visit [facility] [address] [place] [address] Alexi Acuña MD [address] [place] [address] 10/02/2025 11:15 AM LEAF CONDITIONER HELPER Allied Health/Nurse Visit [place] [address] [place] [address] Alexi Acuña MD [address] [place], [place] 4916[address]- 10/02/2025 11:30 AM LEAF CONDITIONER HELPER Office Visit [facility] [place] [address] [place] [address] Violeta Brown PA-C [address] [place] [address] documented as of this encounter Visit Diagnoses Not on filedocumented in this encounter Additional Health Concerns Infection Onset Date Last Indicated Resolved Time COVID-19 Rule Out 03/11/2020 03/11/2020 03/13/2020 1:53 AM CDT documented as of this encounter Care Teams Verifying Specialist Relationship Specialty Start Date End Date Mariam Esteban MD PCP - General SURGERY 07/21/16 08/19/19 Nagi Quintanilla MD [address] [place] [address] PCP - General FAMILY PRACTICE 09/27/19 01/30/20 Alonzo Campoverde MD [address] [place] [address] PCP - General INTERNAL MEDICINE 01/31/20 Diomedes Pritchard MD [address] [place] [phone] [place] Rn Placement CARDIOVASCULAR DISEASE 07/21/16 03/08/24 Joana Avitia APRN, PREPARATION PLANT SUPERVISOR-C [address] [place] [address] NURSE PRACTITIONER 09/10/21 Diomedes Schwartz MD [address] [place] [address] [phone] Vascular/Cardiologis t VASCULAR SURGERY 09/10/21 08/02/22 Bernardo Álvarez MD [address] [place] [address] [phone] Consulting Physician PULMONARY DISEASE 08/03/22 Alexi Acuña MD [address] [place] [address] 457831 Consulting Physician CLINICAL CARDIAC ELECTROPHYSIOLOGY 08/11/23 Violeta Brown PA-C [address] [place] [address] Referring Physician PHYSICIAN RADIOGRAPHY TECHNICIAN 03/09/24 Rosa Saunders MD [address] [place] [address] INTERVENTIONAL CARDIOLOGY 06/25/24 documented as of this encounter
--- OUTSIDE RECORDS SUMMARY | 2025-06-18 09:49 | XMS_ITS | Clinical Summary ---
Author Organization [facility] Address [address] [place] [address] Care Team Providers Care Casting Supervisor Name Role Phone Unavailable Primary Care Provider Unavailabl e Social History Tobacco Use Types Packs/Day Years Used Date Smoking Tobacco: Never Assessed Sex and Gender Information Value Date Recorded Sex Assigned at Not on file Legal Sex Male 8:56 AM FIELD SALES REPRESENTATIVE Gender Identity Not on file Sexual Orientation Not on file Plan of Treatment Health Maintenance Due Date Last Done Comments Hepatitis C Screening ages 1 8 to 79 once 1946 YEARLY WELLNESS EXAM 1949 DEPRESSION SCREENING 1958 ADULT TETANUS 1965 LIPID TESTING 1981 Pneumococcal Vaccine: 50 and over (1 of 1 - PCV) 01/27/1996 04/22/2019 Zoster Vaccine (Recombinant Vaccine) (1 of 2) 01/27/1996 Fall Risk Assessment 2011 RSV Vaccines (1 - 1-dose 75+ series) 2021 Influenza Vaccine 03/22/2025 06/05/2022, 05/06/2021, 05/22/2020 COVID-19 Immunization ( - season) 2025 HEPATITIS A VACCINES Aged Out No long er eligible based on patient's age to complete this topic HEPATITIS B VACCINES Aged Out No long er eligible based on patient's age to complete this topic HIB VACCINES Aged Out No longer eligi ble based on patient's age to complete this topic HPV VACCINES Aged Out No longer eligi ble based on patient's age to complete this topic IPV VACCINES Aged Out No longer eligi ble based on patient's age to complete this topic MENINGOCOCCAL VACCINE Aged Out No yara cong eligible based on patient's age to complete this topic Meningococcal B Vaccine Aged Out No l onger eligible based on patient's age to complete this topic ROTAVIRUS VACCINES Aged Out No longer eligible based on patient's age to complete this topic
--- OUTSIDE RECORDS SUMMARY | 2025-06-18 09:49 | XMS_ITS | Clinical Summary ---
Author Organization [facility] Address [address] [place] [address] Phone Care Team Providers Care Paid Search Analyst Name Role Phone Alonzo Campoverde MD Primary Care Provider [phone] Allergies No known active allergies Medications loratadine [...] on file Legal Sex Male 9:18 AM [facility] Gender Identity Not on file Sexual Orientation [...] (#1) 2025 2, 05/06/2021, 05/22/2020 Insurance MEDICARE [facility], [facility] Care Teams Paid Search Analyst Relationship Specialty Start Date End Date Alonzo Campoverde MD [address] [place] [address] PCP - General Internal Medicine 06/25/20
--- OUTSIDE RECORDS SUMMARY | 2025-06-18 09:49 | XMS_ITS | Clinical Summary ---
Author Organization [facility] Address [address] [place] [address] Care Team Providers Care Segment Producer Name Role Phone Alonzo Campoverde MD Primary Care Provider [phone] Allergies No known active allergies Medications rosuvastatin [...] 1 tablet (3 mg total) by mouth teacher early childhood development before breakfast 3 Active loratadine (CLARITIN) 10 [...] 06/20/2020 Assessment & Plan (10/19/2022 1:02 PM FORCER MAKER): Stable continue ASA 81 mg. Stage 3a chronic kidney disease 12/26/2019 Hyperlipidemia 12/15/2016 Assessment & Plan (12/01/2022 10:57 AM CDT): Stable continue Crestor 20 mg. Assessment & Plan (10/19/2022 1:02 PM FORCER MAKER): Stable continue Crestor 20 mg. DUGAN [...] year. Assessment & Plan (10/19/2022 1:03 PM FORCER MAKER): Status post EVAR with an Endologix stent graft by Dr. 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 CTA abdomen pelvis ordered for surveillance. We will follow-up after further imaging. Calculus of kidney 10/25/2016 Dyslipidemia 10/25/2016 Assessment & Plan (12/07/2023 9:59 AM CDT): Stable continue Crestor 20 mg. Encounters Date Type Department Care Team Description 04/01/2025 Results Follow-Up [facility] [address] [place] [address] [address] [place] [address] Denny Potter NP CBC with auto differential, Vitamin D 25 hydroxy, Thyroid Function [place], Folate 03/21/2025 2:30 PM CDT Office Visit [facility] [address] [facility] [address] [place] [address] Denny Potter NP Alzheimer's disease with late [...] on file Legal Sex Male 12:19 AM FORCER MAKER Gender Identity Not on file Sexual [...] 25 hydroxy (03/22/2025 3:24 PM CDT) Pathologist [facility] Vitamin D 25-OH 66 30 - 100 [...] D, (D2,D3), LC/MS/MS is recommended: order code 22738 (patients >2yrs). See Note 1 Note 1 For additional information, please refer to http://education.Surfingbird/faq/OIW944 (This link is being provided for informational/ educational purposes only.) Blood 03/22/2025 3:24 PM CDT 03/22/2025 3:24 PM CDT Denny Potter NP LAB BLOOD ORDERABLES Final Result Performing Organization Address City/[facility]/ZIP Co de Phone Number [facility] [address] [place] [address] * Thyroid Function [place] (03/22/2025 11:28 AM CDT) [facility] TSH 1.30 0.40 - 4.50 mIU/L [facility]Julio exa Blood 03/22/2025 11:2 8 AM CDT 03/22/2025 11:29 AM CDT Denny Potter NP LAB BLOOD ORDERABLES Final Result Performing Organization Address [facility]/ZIP Co de Phone Number [facility] [address] [place] [address] * (ABNORMAL) CBC with auto differential (03/22/2025 11:28 AM CDT) [facility] WBC 6.5 3.8 - 10.8 Thousand/u L [...] 03/22/2025 11:29 AM CDT us Denny Potter ROAD INSPECTOR LAB BLOOD ORDERABLES Final Result [facility] [id number] [address] [phone] * Folate (03/22/2025 11:28 AM CDT) Folate, Serum >24.0 ng/mL Riffyn-Eileen nexa Comment: Reference Range Low: <3.4 Borderline: 3.4-5.4 Normal: >5.4 Blood 03/22/2025 11:2 8 AM CDT 03/22/2025 11:[address] INSPECTOR LAB BLOOD ORDERABLES Final Result [place] [id number] [address] [phone] from Last 3 Months Insurance MEDICARE MEDICARE [facility] MEDICARE SUPPLEMENT Care Teams Segment Producer Relationship Specialty Start Date End Date Alonzo Campoverde MD [address] [place] [address] PCP - General Internal Medicine 03/21/25
--- OUTSIDE RECORDS SUMMARY | 2025-06-18 09:49 | XMS_ITS | Encounter Summary ---
Author Organization [facility] Address [address] [place] [address] Care Team Providers Care Outdoor Studies Professor Name Role Phone Mariam Esteban MD Primary Care Provider Diomedes Alarcon MD Unavailable [phone] Nagi Quintanilla MD Primary Care Provider [phone] Alonzo Campoverde MD Primary Care Provider [phone] Joana Avitia APRN SCIENCES DEAN-C Unavailable Diomedes Schwartz MD Unavailable Brenardo Álvarez MD Unavailable [phone] Alexi Acuña MD Unavailable [phone] Violeta Brown-C Unavailable [phone] Rosa Saunders MD Unavailable [phone] Encounter Details Date Type Department Care Team (Latest Contact Info) Description 04/04/2018 Abstract [facility] Bernardo Álvarez MD [address] [place] [address] Social History Tobacco Use Types Packs/Day Years Used Date Smoking Tobacco: Never Alcohol Use Standard Drinks/Week Comments No 0 (1 standard drink = 0.6 oz pur e alcohol) Sex and Gender Information Value Date Recorded Sex Assigned at Male 10/03/2024 10:17 AM LIVESTOCK RANCHER Legal Sex Male 11:01 PM CDT Gender Identity Not on file Sexual Orientation Not on file 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 Not on file Not on f ile documented as of this encounter Plan of Treatment Upcoming Encounters Date Type Department Care Team ([facility] st Contact Info) Description 07/30/2025 2:00 PM LIVESTOCK RANCHER Office Visit [facility] [place] [address] [place] [address] Job Omer MD [address] [facility] [address] [place] [address] 07/31/2025 3:15 AM LIVESTOCK RANCHER Allied Health/Nurse Visit [facility] [address] [place] [address] Alexi Acuña MD [address] [place], [place] 270501 10/02/2025 11:15 AM LIVESTOCK RANCHER Allied Health/Nurse Visit [place] [address] [place] [address] Alexi Acuña MD [address] [place] [address] 10/02/2025 11:30 AM LIVESTOCK RANCHER Office Visit [facility] [place] [address] [place] [address] Violeta Brown PA-C [address] [place], [place] 088251 documented as of this encounter Visit Diagnoses Not on filedocumented in this encounter Additional Health Concerns Infection Onset Date Last Indicated Resolved Time COVID-19 Rule Out 03/11/2020 03/11/2020 03/13/2020 1:53 AM CDT documented as of this encounter Care Teams Outdoor Studies Professor Relationship Specialty Start Date End Date Mariam Esteban MD PCP - General SURGERY 07/21/16 08/19/19 Nagi Quintanilla MD [address] [place], [place] [phone] PCP - General FAMILY PRACTICE 09/27/19 01/30/20 Alonzo Campoverde MD [address] [place] [address] PCP - General INTERNAL MEDICINE 01/31/20 Diomedes Pritchard MD [address] [place] [phone] [employer] Test Technician CARDIOVASCULAR DISEASE 07/21/16 03/08/24 Joana Avitia APRN, SCIENCES DEAN-C [address] [place] [address] [address] [place] [address] NURSE PRACTITIONER 09/10/21 Diomedes Schwartz MD [address] [place] [address] 290709 Vascular/Cardiologis t VASCULAR SURGERY 09/10/21 08/02/22 Bernardo Álvarez MD [address] [place] [address] 785304 Consulting Physician PULMONARY DISEASE 08/03/22 Alexi Acuña MD [address] [place] [address] 048651 Consulting Physician CLINICAL CARDIAC ELECTROPHYSIOLOGY 08/11/23 Violeta Brown PA-C [address] [place] [address] Referring Physician PHYSICIAN ENTRY LEVEL ACCOUNT MANAGER 03/09/24 Rosa Saunders MD [address] [place] [address] INTERVENTIONAL CARDIOLOGY 06/25/24 documented as of this encounter
[2025-06-18 09:59] LABS: Alanine Aminotransferase 51 U/L (6-50); Albumin Level 4.4 g/dL (3.5-5.1); Alkaline Phosphatase 123 U/L (38-126); Anion Gap 8 mmol/L (4-12); Aspartate Amino Transferase 49 U/L (17-59); Bilirubin,Total 0.6 mg/dL (0.2-1.3); Blood Urea Nitrogen 31 mg/dL (9-20); Calcium 11.3 mg/dL (8.4-10.2); Carbon Dioxide 32 mmol/L (22-30); Chloride 106 mmol/L (98-107); Cholesterol 158 mg/dL (0-200); Estimated Glomerular Filt Rate 44; Glucose 137 mg/dL (65-110); HDL Direct 55 mg/dL; Osmolality Calculated 310 mOsm/kg (285-295); Potassium 5.2 mmol/L (3.4-5.0); Sodium 146 mmol/L (137-145); Total Protein 8.0 g/dL (6.3-8.2); Triglycerides 212 mg/dL (<150)
[2025-06-19 08:40] LABS: Parathyroid Intact 61.0 (7.5-53.5)
== END 2025-06-18 09:08 | disposition home or self-care (01) ==
LOC: CHSLAB 09:08
PROVIDERS: PCP Internal Medicine; Visit Provider Internal Medicine Nephrology
DX: N18.31 Chronic kidney disease, stage 3a (principal); E83.52 Hypercalcemia; N18.9 Chronic kidney disease, unspecified; E78.5 Hyperlipidemia, unspecified; E11.69 Type 2 diabetes mellitus with other specified complication
CPT/HCPCS: 36415; 80053; 80061; 80069; 82570; 83036; 83970; 84156; 85027

== ENCOUNTER 2025-07-24 11:42 | Outpatient (CLI) | payer MEDICARE, SELFPAY ==
[2025-07-24 12:46] LABS: Albumin Level 4.6 g/dL (3.5-5.1); Anion Gap 12 mmol/L (4-12); Blood Urea Nitrogen 27 mg/dL (9-20); Calcium 10.7 mg/dL (8.4-10.2); Carbon Dioxide 29 mmol/L (22-30); Chloride 104 mmol/L (98-107); Estimated Glomerular Filt Rate 40; Glucose 133 mg/dL (65-110); Osmolality Calculated 307 mOsm/kg (285-295); Potassium 4.4 mmol/L (3.4-5.0); Sodium 145 mmol/L (137-145)
--- OUTSIDE RECORDS SUMMARY | 2025-07-24 13:14 | XMS_ITS | Encounter Summary ---
Author Organization [facility] Address [address] [place] [address] Care Team Providers Care Indigo Mixer Name Role Phone Mariam Esteban MD Primary Care Provider Diomedes Alarcon MD Unavailable [phone] Nagi Quintanilla MD Primary Care Provider [phone] Alonzo Campoverde MD Primary Care Provider [phone] Joana Avitia APRN, BRAND MANAGER-C Unavailable Diomedes Schwartz MD Unavailable Bernardo Álvarez MD Unavailable [phone] Alexi Acuña MD Unavailable [phone] Violeta Brown-C Unavailable [phone] Rosa Saunders MD Unavailable [phone] Encounter Details Date Type Department Care Team (Late st Contact Info) Description 05/29/2018 Abstract [facility] [address] [place] [address] Joana Avitia APRN, BRAND MANAGER-C [address] 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 Not on file Not on f ile documented as of this encounter Plan of Treatment Upcoming Encounters Date Type Department Care Team (Late st Contact Info) Description 07/30/2025 2:00 PM ADVENTURE EDUCATION TEACHER Office Visit [facility] [place] [address] [place] [place] [address] Job Omer MD [address] [facility] [address] [address] 07/31/2025 3:15 AM ADVENTURE EDUCATION TEACHER Allied Health/Nurse Visit [facility] [address] [place] [address] Alexi Acuña MD [address] [place] [address] 040058 [phone] 10/02/2025 11:15 AM ADVENTURE EDUCATION TEACHER Allied Health/Nurse Visit [place] [address] [place] [address] Alexi Acuña MD [address] [place] [address] 10/02/2025 11:30 AM ADVENTURE EDUCATION TEACHER Office Visit [facility] [place] [address] [place] [address] Violeta Brown PA-C [address] [place] [address] documented as of this encounter Procedures Procedure [...] documented as of this encounter Care Teams Indigo Mixer Relationship Specialty Start Date End Date Mariam Esteban MD PCP - General SURGERY 07/21/16 08/19/19 Nagi Quintanilla MD [address] [place], [place] [phone] PCP - General FAMILY PRACTICE 09/27/19 01/30/20 Alonzo Campovrede MD [address] [place] [address] PCP - General INTERNAL MEDICINE 01/31/20 Diomedes Pritchard MD [address] [place] [address] [employer] Parking Supervisor CARDIOVASCULAR DISEASE 07/21/16 03/08/24 Joana Avitia, EMULSIFICATION OPERATOR, BRAND MANAGER-C [address] [facility] [address] [place] [address] NURSE PRACTITIONER 09/10/21 Diomedes Schwartz MD [address] [place] [address] [phone] Vascular/Cardiologis t VASCULAR SURGERY 09/10/21 08/02/22 Bernardo Álvarez MD [address] [place] [address] Consulting Physician PULMONARY DISEASE 08/03/22 Alexi Acuña MD [address] [place] [address] Consulting Physician CLINICAL CARDIAC ELECTROPHYSIOLOGY 08/11/23 Violeta Brown PA-C [address] [place] [address] Referring Physician PHYSICIAN DIRECTOR TRADING 03/09/24 Rosa Saunders MD [address] [place] [address] INTERVENTIONAL CARDIOLOGY 06/25/24 documented as of this encounter
--- OUTSIDE RECORDS SUMMARY | 2025-07-24 13:14 | XMS_ITS | Encounter Summary ---
Author Organization [facility] Address [address] [place] [address] Care Team Providers Care Spindle Sander Name Role Phone Mariam Esteban MD Primary Care Provider Diomedes Alarcon MD Unavailable [phone] Nagi Quintanilla MD Primary Care Provider [phone] Alonzo Campoverde MD Primary Care Provider [phone] Joana Avitia APRN EMBROIDERY MACHINE OPERATOR-C Unavailable [phone] Diomedes Schwartz MD Unavailable Bernardo Álvarez MD Unavailable [phone] Alexi Acuña MD Unavailable [phone] Violeta Brown-C Unavailable [phone] Rosa Saunders MD Unavailable [phone] Encounter Details Date Type Department Care Team (Late st Contact Info) Description 04/24/2015 Abstract [facility] [address] [place] [address] Diomedes Pritchard MD [address] [place] [address] Social History Tobacco Use Types Packs/Day Years Used Date Smoking Tobacco: Never Alcohol Use Standard Drinks/Week Comments No 0 (1 standard drink = 0.6 oz pur e alcohol) Sex and Gender Information Value Date Recorded Sex Assigned at Male 10/03/2024 10:17 AM BUSINESS PLANNER Legal Sex Male 11:01 PM CDT Gender Identity Not on file Sexual Orientation Not on file 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 st Contact Info) Description 07/30/2025 2:00 PM BUSINESS PLANNER Office Visit [facility] [place] [address] [place] [address] Job Omer MD [address] [facility] [address] [place] [address] 07/31/2025 3:15 AM BUSINESS PLANNER Allied Health/Nurse Visit [facility] [address] [place] [address] Alexi Acuña MD 9 [place] [address] 10/02/2025 11:15 AM BUSINESS PLANNER Allied Health/Nurse Visit [place] [address] [place] [address] Alexi Acuña MD 9 [place] [address] 10/02/2025 11:30 AM BUSINESS PLANNER Office Visit [facility] [place] [address] [place] [address] Violeta Brown PA-C [address] [place] [address] documented as of this encounter Visit Diagnoses Not on filedocumented in this encounter Additional Health Concerns Infection Onset Date Last Indicated Resolved Time COVID-19 Rule Out 03/11/2020 03/11/2020 03/13/2020 1:53 AM CDT documented as of this encounter Care Teams Spindle Sander Relationship Specialty Start Date End Date Mariam Esteban MD PCP - General SURGERY 07/21/16 08/19/19 Nagi Quintanilla MD [address] [place] [address] PCP - General FAMILY PRACTICE 09/27/19 01/30/20 Alonzo Campoverde MD [address] [place] [address] PCP - General INTERNAL MEDICINE 01/31/20 Diomedes Pritchard MD [address] [place] [address] [place] Ship Steward CARDIOVASCULAR DISEASE 07/21/16 03/08/24 Joana Avitia, PRODUCT TRAINER, EMBROIDERY MACHINE OPERATOR-C [address] [facility] [address] [place] [address] NURSE PRACTITIONER 09/10/21 Diomedes Schwartz MD [address] [place] [address] [address] [place], [place] [id number] Vascular/Cardiologis t VASCULAR SURGERY 09/10/21 08/02/22 Bernardo Álvarez MD [address] [place] [address] Consulting Physician PULMONARY DISEASE 08/03/22 Alexi Acuña MD [address] [place] [address] Consulting Physician CLINICAL CARDIAC ELECTROPHYSIOLOGY 08/11/23 Violeta Brown PA-C [address] [place] [address] Referring Physician PHYSICIAN COMMERCIAL LOAN UNDERWRITER 03/09/24 Rosa Saunders MD 9 [place] [address] INTERVENTIONAL CARDIOLOGY 06/25/24 documented as of this encounter
--- OUTSIDE RECORDS SUMMARY | 2025-07-24 13:14 | XMS_ITS | Encounter Summary ---
Author Organization [facility] Address [address] [place] [address] Care Team Providers Care Gun Welder Name Role Phone Mariam Esteban MD Primary Care Provider Diomedes Alarcon MD Unavailable [phone] Nagi Quintanilla MD Primary Care Provider [phone] Alonzo Campoverde MD Primary Care Provider [phone] Joana Avitia APRN RUBBLE PLACER-C Unavailable [phone] Diomedes Schwartz MD Unavailable Bernardo Álvarez MD Unavailable [phone] Alexi Acuña MD Unavailable [phone] Violeta Brown-C Unavailable [phone] Rosa Saunders MD Unavailable [phone] Encounter Details Date Type Department Care Team (Late st Contact Info) Description 05/29/2018 Abstract [facility] [address] [place] [address] Diomedes Pritchadr MD [address] [place] [address] Social History Tobacco Use Types Packs/Day Years Used Date Smoking Tobacco: Never Smokeless Tobacco: Never Alcohol Use Standard Drinks/Week Comments No 0 (1 standard drink = 0.6 oz pur e alcohol) Sex and Gender Information Value Date Recorded Sex Assigned at Male 10/03/2024 10:17 AM BASS SINGER Legal Sex Male 11:01 PM CDT Gender Identity Not on file Sexual Orientation Not on file 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 [address] [address] 07/31/2025 3:15 AM BASS SINGER Allied Health/Nurse Visit [facility] [address] [place] [address] Alexi Acuña MD 9 [place] [address] 10/02/2025 11:15 AM BASS SINGER Allied Health/Nurse Visit [place] [address] [place] [place] [address] Alexi Acuña MD 9 [place] [address] 10/02/2025 11:30 AM BASS SINGER Office Visit [facility] [place] [address] [place] [address] Violeta Brown PA-C [address] [place] [address] documented as of this encounter Visit Diagnoses Not on filedocumented in this encounter Additional Health Concerns Infection Onset Date Last Indicated Resolved Time COVID-19 Rule Out 03/11/2020 03/11/2020 03/13/2020 1:53 AM CDT documented as of this encounter Care Teams Gun Welder Relationship Specialty Start Date End Date Mariam Esteban MD PCP - General SURGERY 07/21/16 08/19/19 Nagi Quintanilla MD [address] [place], [place] [phone] PCP - General FAMILY PRACTICE 09/27/19 01/30/20 Alonzo Campoverde MD [address] [place] [address] PCP - General INTERNAL MEDICINE 01/31/20 Diomedes Pritchard MD [address] [place] [address] [place] Overhead Foreman CARDIOVASCULAR DISEASE 07/21/16 03/08/24 Joana Avitia, ROSA, RUBBLE PLACER-C [address] [place] [address] [address] [place] [address] NURSE PRACTITIONER 09/10/21 Diomedes Schwartz MD [address] [place] [address] [address] [place] [address] Vascular/Cardiologis t VASCULAR SURGERY 09/10/21 08/02/22 Bernardo Álvarez MD [address] [place] [address] Consulting Physician PULMONARY DISEASE 08/03/22 Alexi Acuña MD [address] [place] [address] Consulting Physician CLINICAL CARDIAC ELECTROPHYSIOLOGY 08/11/23 Violeta Brown PA-C 9 [place], [place] 76[address] Referring Physician PHYSICIAN SODA FOUNTAIN MANAGER 03/09/24 Rosa Saunders MD 9 [place] [address] INTERVENTIONAL CARDIOLOGY 06/25/24 documented as of this encounter
--- OUTSIDE RECORDS SUMMARY | 2025-07-24 13:14 | XMS_ITS | Encounter Summary ---
Author Organization [facility] Address [address] [place] [address] Care Team Providers Care Packing Checker Name Role Phone Mariam Esteban MD Primary Care Provider Diomedes Alarcon MD Unavailable [phone] Nagi Quintanilla MD Primary Care Provider [phone] Alonzo Campoverde MD Primary Care Provider [phone] Joana Avitia APRN MANAGEMENT TRAINEE MARKETING-C Unavailable [phone] Diomedes Schwartz MD Unavailable Bernardo Álvarez MD Unavailable [phone] Alexi Acuña MD Unavailable [phone] Violeta Brown-C Unavailable [phone] Rosa Saunders MD Unavailable Encounter Details Date Type Department Care Team (Late st Contact Info) Description 05/31/2018 Abstract [facility] [address] [place] [address] Diomedes Pritchard MD [address] [place] [address] Social History Tobacco Use Types Packs/Day Years Used Date Smoking Tobacco: Never Smokeless Tobacco: Never Alcohol Use Standard Drinks/Week Comments No 0 (1 standard drink = 0.6 oz pur e alcohol) Sex and Gender Information Value Date Recorded Sex Assigned at Male 10/03/2024 10:17 AM SPRAY GUN STRIPER Legal Sex Male 11:01 PM CDT Gender Identity Not on file Sexual Orientation Not on file 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 Not on file Not on file Not on f ile documented as of this encounter Plan of Treatment Upcoming Encounters Date Type Department Care Team ([facility] st Contact Info) Description 07/30/2025 2:00 PM SPRAY GUN STRIPER Office Visit [facility] [place] [address] [place] [address] Job Omer MD 6[address] [facility] [address] [address] 07/31/2025 3:15 AM SPRAY GUN STRIPER Allied Health/Nurse Visit [facility] [address] [place] [address] Alexi Acuña MD [address] [place] [address] 10/02/2025 11:15 AM SPRAY GUN STRIPER Allied Health/Nurse Visit [place] [address] [place] [place] [address] Alexi Acuña MD [address] [place] [address] 10/02/2025 11:30 AM SPRAY GUN STRIPER Office Visit [facility] [address] [place] [place] [address] Violeta Brown PA-C [address] [place] [address] documented as of this encounter Procedures Procedure [...] documented as of this encounter Care Teams Packing Checker Relationship Specialty Start Date End Date Mariam Esteban MD PCP - General SURGERY 07/21/16 08/19/19 Nagi Quintanilla MD [address] [place], [place] [address] PCP - General FAMILY PRACTICE 09/27/19 01/30/20 Alonzo Campoverde MD [address] [place] [address] PCP - General INTERNAL MEDICINE 01/31/20 Diomedes Pritchard MD [address] [place] [address] [place] Animation Director CARDIOVASCULAR DISEASE 07/21/16 03/08/24 Joana Avitia, ROSA, MANAGEMENT TRAINEE MARKETING-C [address] [facility] [address] [place] [address] NURSE PRACTITIONER 09/10/21 Diomedes Schwartz MD [address] [place] [address] [address] [place] [address] Vascular/Cardiologis t VASCULAR SURGERY 09/10/21 08/02/22 Bernardo Álvarez MD [address] [place] [address] Consulting Physician PULMONARY DISEASE 08/03/22 Alexi Acuña MD [address] [place], [place] [address] Consulting Physician CLINICAL CARDIAC ELECTROPHYSIOLOGY 08/11/23 Violeta Brown PA-C [address] [place], [place] 54[address] Referring Physician PHYSICIAN LAWN SPRINKLER INSTALLER 03/09/24 Rosa Saunders MD 9 [place] [address] INTERVENTIONAL CARDIOLOGY 06/25/24 documented as of this encounter
--- OUTSIDE RECORDS SUMMARY | 2025-07-24 13:14 | XMS_ITS | Encounter Summary ---
Author Organization [facility] Address [address] [place] [address] Care Team Providers Care Application Dba Name Role Phone Mariam Esteban MD Primary Care Provider Diomedes Alarcon MD Unavailable [phone] Nagi Quintanilla MD Primary Care Provider [phone] Alonzo Campoverde MD Primary Care Provider [phone] Joana Avitia APRN, SAND BUFFER-C Unavailable Diomedes Schwartz MD Unavailable Bernardo Álvarez MD Unavailable [phone] Alexi Acuña MD Unavailable [phone] Violeta Brown PA-C Unavailable [phone] Rosa Saunders MD Unavailable [phone] Encounter Details Date Type Department Care Team (Late st Contact Info) Description 11/05/2017 Abstract [facility] [address] [place] [address] , Generic Conversion, Social History Tobacco Use Types Packs/Day Years Used Date Smoking Tobacco: Never Alcohol Use Standard Drinks/Week Comments No 0 (1 standard drink = 0.6 oz pur e alcohol) Sex and Gender Information Value Date Recorded Sex Assigned at Male 10/03/2024 10:17 AM LAUNDRY PRESS OPERATOR Legal Sex Male 11:01 PM CDT Gender Identity Not on file Sexual Orientation Not on file 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 Not on file Not on f ile documented as of this encounter Plan of Treatment Upcoming Encounters Date Type Department Care Team (Late st Contact Info) Description 07/30/2025 2:00 PM LAUNDRY PRESS OPERATOR Office Visit [facility] [place] [address] [place] [address] Job Omer MD [address] [facility] [address] [place] [address] 07/31/2025 3:15 AM LAUNDRY PRESS OPERATOR Allied Health/Nurse Visit [facility] [address] [place] [address] Alexi Acuña MD [address] [place] [address] 10/02/2025 11:15 AM LAUNDRY PRESS OPERATOR Allied Health/Nurse Visit [place] [address] [place] [address] Alexi Acuña MD [address] [place], [place] [address]- 10/02/2025 11:30 AM LAUNDRY PRESS OPERATOR Office Visit [facility] [place] [address] [place] [address] Violeta Brown PA-C [address] [place] [address] documented as of this encounter Visit Diagnoses Not on filedocumented in this encounter Additional Health Concerns Infection Onset Date Last Indicated Resolved Time COVID-19 Rule Out 03/11/2020 03/11/2020 03/13/2020 1:53 AM CDT documented as of this encounter Care Teams Application Dba Relationship Specialty Start Date End Date Mariam Esteban MD PCP - General SURGERY 07/21/16 08/19/19 Nagi Quintanilla MD [address] [place] [address] PCP - General FAMILY PRACTICE 09/27/19 01/30/20 Alonzo Campoverde MD [address] [place] [address] PCP - General INTERNAL MEDICINE 01/31/20 Diomedes Pritchard MD [address] [place] [phone] [place] Manager Hiv CARDIOVASCULAR DISEASE 07/21/16 03/08/24 Joana Avitia APRN, SAND BUFFER-C [address] [place] [address] NURSE PRACTITIONER 09/10/21 Diomedes Schwartz MD [address] [place] [address] 397[address] Vascular/Cardiologis t VASCULAR SURGERY 09/10/21 08/02/22 Bernardo Álvarez MD [address] [place] [address] 149704 Consulting Physician PULMONARY DISEASE 08/03/22 Alexi Acuña MD [address] [place] [address] 005921 Consulting Physician CLINICAL CARDIAC ELECTROPHYSIOLOGY 08/11/23 Violeta Brown PA-C [address] [place] [address] Referring Physician PHYSICIAN TELEPHONE EXCHANGE OPERATOR 03/09/24 Rosa Saunders MD [address] [place] [address] INTERVENTIONAL CARDIOLOGY 06/25/24 documented as of this encounter
--- OUTSIDE RECORDS SUMMARY | 2025-07-24 13:14 | XMS_ITS | Clinical Summary ---
Author Organization [facility] Address [address] [place] [address] Care Team Providers Care Neuro Ophthalmologist Name Role Phone Alonzo Campoverde MD Primary Care Provider [phone] Allergies No known active allergies Medications rosuvastatin [...] 1 tablet (3 mg total) by mouth chief enterprise architect before breakfast 3 Active loratadine (CLARITIN) 10 [...] 06/20/2020 Assessment & Plan (10/19/2022 1:02 PM VP MARKETING): Stable continue ASA 81 mg. Stage 3a chronic kidney disease 12/26/2019 Hyperlipidemia 12/15/2016 Assessment & Plan (12/01/2022 10:57 AM CDT): Stable continue Crestor 20 mg. Assessment & Plan (10/19/2022 1:02 PM VP MARKETING): Stable continue Crestor 20 mg. DUGAN (dyspnea [...] year. Assessment & Plan (10/19/2022 1:03 PM VP MARKETING): Status post EVAR with an Endologix stent graft by Dr. Schwartz at [facility] with a right groin cutdown, has [...] on file Legal Sex Male 12:19 AM VP MARKETING Gender Identity Not on file Sexual Orientation [...] 01/27/1996 Well Visit 65+ 2011 Covid-19 Vaccine (2024- 6 season) 2025 05/23/2022, 05/26/2021, 10/15/2020, Additional history exists Influenza Vaccine (#1) 2025 , 05/23/2022, 05/06/2021, Additional history exists DTaP/Tdap/Td Vaccine (2 - Td or Tdap) 02/07/2032 02/06/2022 Pneumococcal vaccine 65+ Completed 04/22/2019, 05/23 Insurance MEDICARE MEDICARE [facility] MEDICARE SUPPLEMENT Care Teams Neuro Ophthalmologist Relationship Specialty Start Date End Date Alonzo Campoverde MD [address] [place] [address] PCP - General Internal Medicine 03/21/25
--- OUTSIDE RECORDS SUMMARY | 2025-07-24 13:14 | XMS_ITS | Encounter Summary ---
Author Organization [facility] Address [address] [place] [address] Care Team Providers Care Supervisor Instant Potato Processing Name Role Phone Mariam Esteban MD Primary Care Provider Diomedes Alarcon MD Unavailable [phone] Nagi Quintanilla MD Primary Care Provider [phone] Alonzo Campoverde MD Primary Care Provider [phone] Joana Avitia APRN LINE PALLETIZER-C Unavailable Diomedes Schwartz MD Unavailable Bernardo Álvarez MD Unavailable [phone] Alexi Acuña MD Unavailable [phone] Violeta Brown-C Unavailable [phone] Rosa Saunders MD Unavailable [phone] Encounter Details Date Type Department Care Team (Latest Contact Info) Description 04/04/2018 Abstract [facility] Bernardo Álvarez MD [address] [place] [address] Social History Tobacco Use Types Packs/Day Years Used Date Smoking Tobacco: Never Alcohol Use Standard Drinks/Week Comments No 0 (1 standard drink = 0.6 oz pur e alcohol) Sex and Gender Information Value Date Recorded Sex Assigned at Male 10/03/2024 10:17 AM FRUIT BUYING GRADER Legal Sex Male 11:01 PM CDT Gender Identity Not on file Sexual Orientation Not on file 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 Not on file Not on f ile documented as of this encounter Plan of Treatment Upcoming Encounters Date Type Department Care Team ([facility] st Contact Info) Description 07/30/2025 2:00 PM FRUIT BUYING GRADER Office Visit [facility] [place] [address] [place] [address] Job Omer MD [address] [facility] [address] [place] [address] 07/31/2025 3:15 AM FRUIT BUYING GRADER Allied Health/Nurse Visit [facility] [address] [place] [address] Alexi Acuña MD [address] [place], [place] [address] 10/02/2025 11:15 AM FRUIT BUYING GRADER Allied Health/Nurse Visit [place] [address] [place] [address] Alexi Acuña MD [address] [place] [address] 10/02/2025 11:30 AM FRUIT BUYING GRADER Office Visit [facility] [place] [address] [place] [address] Violeta Brown PA-C [address] [place], [place] [address] documented as of this encounter Visit Diagnoses Not on filedocumented in this encounter Additional Health Concerns Infection Onset Date Last Indicated Resolved Time COVID-19 Rule Out 03/11/2020 03/11/2020 03/13/2020 1:53 AM CDT documented as of this encounter Care Teams Supervisor Instant Potato Processing Relationship Specialty Start Date End Date Mariam Esteban MD PCP - General SURGERY 07/21/16 08/19/19 Nagi Quintanilla MD [address] [place], [place] [address] PCP - General FAMILY PRACTICE 09/27/19 01/30/20 Alonzo Campoverde MD [address] [place] [address] PCP - General INTERNAL MEDICINE 01/31/20 Diomedes Pritchard MD [address] [place] [address] [facility] Admissions Director CARDIOVASCULAR DISEASE 07/21/16 03/08/24 Joana Avitia APRN, LINE PALLETIZER-C [address] [place] [address] [address] [place] [address] NURSE PRACTITIONER 09/10/21 Diomedes Schwartz MD [address] [place] [address] Vascular/Cardiologis t VASCULAR SURGERY 09/10/21 08/02/22 Bernardo Álvarez MD [address] [place] [address]60704 Consulting Physician PULMONARY DISEASE 08/03/22 Alexi Acuña MD [address] [place] [address] [phone] Consulting Physician CLINICAL CARDIAC ELECTROPHYSIOLOGY 08/11/23 Violeta Brown PA-C [address] [place] [address] Referring Physician PHYSICIAN CARDIOTHORACIC PHYSIOTHERAPIST 03/09/24 Rosa Saunders MD [address] [place] [address] INTERVENTIONAL CARDIOLOGY 06/25/24 documented as of this encounter
--- OUTSIDE RECORDS SUMMARY | 2025-07-24 13:14 | XMS_ITS | Clinical Summary ---
Author Organization [facility] Address [address] [place] [address] Care Team Providers Care Last Trimmer Name Role Phone Alonzo Campoverde MD Primary Care Provider [phone] Joana Avitia APRN, NP-C Unavailable Bernardo Álvarez MD Unavailable [phone] Alexi Acuña MD Unavailable [phone] Violeta BrownC Unavailable [phone] Rosa Saunders MD Unavailable [phone] Allergies No known active allergies Medications [...] Encounters Date Type Department Care Team Description 07/02/2025 Telephone [facility] [address] [place] [address] Alexi Acuña MD Information 06/30/2025 8:15 AM INSTRUCTIONAL SYSTEMS DESIGN CONSULTANT Allied Health/Nurse Visit [facility] [address] [place] [address] Alexi Acuña MD 06/14/2025 1:15 AM CDT Allied Health/Nurse Visit [facility] [address] [place] [address] Alexi Acuña MD 05/20/2025 Telephone [facility] [address] [place] [address] Job Omer MD Reschedule 04/25/2025 3:00 AM CDT Allied Health/Nurse Visit [facility] [address] [place] [address] Alexi Acuña MD from Last 3 Months [...] place to sleep or slept in a intermediate (including now)? 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 Not on file Not on f ile Last Filed Vital Signs Vital Sign Reading Time Taken Comments Blood Pressure 138/70 10/03/2024 11:19 AM INSTRUCTIONAL SYSTEMS DESIGN CONSULTANT Pulse 58 10/03/2024 11:19 AM INSTRUCTIONAL SYSTEMS DESIGN CONSULTANT Temperature 35.9 C (96.6 F) 08/08/2023 12:06 PM INSTRUCTIONAL SYSTEMS DESIGN CONSULTANT Respiratory Rate 20 10/03/2024 11:1 9 AM INSTRUCTIONAL SYSTEMS DESIGN CONSULTANT Oxygen Saturation 97% 10/03/2024 11: 19 AM INSTRUCTIONAL SYSTEMS DESIGN CONSULTANT Inhaled Oxygen Concentration - - Weight 105.1 kg (231 lb 9.6 oz) 025 11:19 AM INSTRUCTIONAL SYSTEMS DESIGN CONSULTANT Height 185.4 cm (6' 1) 10/03/2024 11:1 9 AM INSTRUCTIONAL SYSTEMS DESIGN CONSULTANT Body Mass Index 30.56 10/03/2024 11:19 AM INSTRUCTIONAL SYSTEMS DESIGN CONSULTANT Plan of Treatment Upcoming Encounters Date Type Department Care Team (Late st Contact Info) Description 07/30/2025 2:00 PM INSTRUCTIONAL SYSTEMS DESIGN CONSULTANT Office Visit [facility] [place] [address] Job Omer MD [address] [facility] [address] [address] 07/31/2025 3:15 AM INSTRUCTIONAL SYSTEMS DESIGN CONSULTANT Allied Health/Nurse Visit [facility] [address] [place] [address] Alexi Acuña MD [address] [place] [address] 10/02/2025 11:15 AM INSTRUCTIONAL SYSTEMS DESIGN CONSULTANT Allied Health/Nurse Visit [place] [address] [place] [address] Alexi Acuña MD [address] [place], [place] [address] 10/02/2025 11:30 AM INSTRUCTIONAL SYSTEMS DESIGN CONSULTANT Office Visit [facility] [address] [place] [address] Violeta Brown PA-C [address] [place] [address] Health Maintenance Due Date Last Done Comments ASCVD LDL 1945 ASCVD Statin 1945 Hepatitis C 01/27/1964 DTaP, Tdap and Td Vaccines (1 - Tdap) 1965 Zoster Vaccines (1 of 2) 01/27/1996 Annual Medicare Wellness Visit 2011 Pneumococcal Vaccine: 50+ Years (2 of 2 - PCV) 04/22/2020 04/22/2019, 06/12/2015 RSV Immunization or 60+ Years (1 - 1-dose 75+ series) 2021 COVID-19 Vaccine ( season) 2025 05/26/2021, 10/15/2020, 09/24/2020 Influenza Adult [...] Gupta RN Medical Devices Implanted Type Area Adobe Layer Device Identifier Shelf Expiration Date Model / Serial / Lot Holliday Proximal Endograft System Implanted:Qt y: 1 on 10/05/2021 by Tess Payne MD at [facility] Graft N/A: Aorta ENDOLOGIX [id number] 07/24/2022 A28-28/C 95-020 V / [id number] / Medtronic Linq Ii- 3 Implanted: by Alexi Acuña MD (Quantity not on file) Implantable Loop Recorder [employer] 10/21/2024 [id number] / [id number] / Description:DX: Suspected AF Cv Biotronik Orsiro Tomy Mid Lad- 0 Implanted:Qt y: 1 on 03/14/2020 by Dc Tipton MD Stent Coronary LAD BIOTRONIK 04/25/2021 [id number] / / [id number] Avery Viabahn 9mm X 59mm Stent Rt Eia-04/26/2023 Implanted: by Mega Cobb MD (Quantity not on file) Stent [employer] 06/22/2025 [id number] / [id number] / [id number] Bifurcated Endograft System Implanted:Qt y: 1 on 10/05/2021 by Tess Payne MD at [facility] N/A: Aorta ENDOLOGIX [id number] 05/28/2023 CKT47-77 /I16-30 / [id number] Description:Positioned in DI STAL AORTA Procedures Procedure [...] Recently Relevant to Health Maintenance Insurance MEDICARE [facility] MEDICARE Advance Directives * Full Code (Latest [...] 11:39 AM 03/14/2020 6:59 PM Care Teams Last Trimmer Relationship Specialty Start Date End Date Alonzo Campoverde MD [address] [place] [address] PCP - General INTERNAL MEDICINE 01/31/20 Joana Avitia, PANEL MACHINE OPERATOR, FISH TENDER-C [address] [place] [address] [address] NURSE PRACTITIONER 09/10/21 Bernardo Álvarez MD [address] [place] [address] Consulting Physician PULMONARY DISEASE 08/03/22 Alexi Acuña MD [address] [place] [address] Consulting Physician CLINICAL CARDIAC ELECTROPHYSIOLOGY 08/11/23 Violeta Brown PA-C [address] [place], [place] [address] Referring Physician PHYSICIAN ACCOUNTS MANAGER 03/09/24 Rosa Saunders MD [address] [place] [address] [phone] INTERVENTIONAL CARDIOLOGY 06/25/24
[2025-07-25 11:09] LABS: Calcium, Urine 11.5 mg/dL (Not Estab.)
== END 2025-07-24 11:43 | disposition home or self-care (01) ==
LOC: CHSLAB 11:44
PROVIDERS: PCP Internal Medicine; Visit Provider Internal Medicine Nephrology
DX: E83.52 Hypercalcemia (principal); N18.31 Chronic kidney disease, stage 3a
CPT/HCPCS: 36415; 80069; 82310; 82340; 82570

== ENCOUNTER 2025-08-21 09:14 | Outpatient (CLI) | payer MEDICARE, SELFPAY ==
--- OUTSIDE RECORDS SUMMARY | 2025-08-21 09:19 | XMS_ITS | Encounter Summary ---
Author Organization [facility] Address [address] [place] [address] Care Team Providers Care Drop Board Man Name Role Phone Mariam Esteban MD Primary Care Provider Diomedes Alarcon MD Unavailable [phone] Nagi Quintanilla MD Primary Care Provider [phone] Alonzo Campoverde MD Primary Care Provider [phone] Joana Avitia APRN, TOWEL SEWER-C Unavailable [phone] Diomedes Schwartz MD Unavailable Bernardo Álvarez MD Unavailable [phone] Alexi Acuña MD Unavailable [phone] Violeta Brown PA-C Unavailable [phone] Rosa Saunders MD Unavailable [phone] Encounter Details Date Type Department Care Team (Late st Contact Info) Description 11/05/2017 Abstract [facility] [address] [place] [address] , Generic Conversion, Social History Tobacco Use Types Packs/Day Years Used Date Smoking Tobacco: Never Alcohol Use Standard Drinks/Week Comments No 0 (1 standard drink = 0.6 oz pur e alcohol) Sex and Gender Information Value Date Recorded Sex Assigned at Male 10/03/2024 10:17 AM PARKING ENFORCEMENT MANAGER Legal Sex Male 11:01 PM CDT Gender Identity Not on file Sexual Orientation Not on file 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 Not on file Not on f ile documented as of this encounter Plan of Treatment Upcoming Encounters Date Type Department Care Team (Latest Contact Info) Description 10/02/2025 11:15 AM PARKING ENFORCEMENT MANAGER Allied Health/Nurse Visit [facility] [address] [place] [address] Alexi Acuña MD [address] [place] [address] 10/02/2025 11:30 AM PARKING ENFORCEMENT MANAGER Office Visit [facility] [address] [place] [address] Violeta Brown PA-C [address] [place] [address] 10/30/2025 1:00 PM CDT Appointment [facility] Non Invasive Cardiology - [facility] [address] [place] [address] Job Omer MD [address] [address] 10/30/2025 2:30 PM CDT Office Visit [facility] [address] [place] [address] Job Omer MD [address] [address] Joana Avitia, SHADER AND TONER, TOWEL SEWER-C [address] [phone] 11/06/2025 1:30 AM CDT Allied Health/Nurse Visit [facility] [address] [place] [address] Alexi Acuña MD [address] [place] [address] documented as of this encounter Visit Diagnoses Not on filedocumented in this encounter Additional Health Concerns Infection Onset Date Last Indicated Resolved Time COVID-19 Rule Out 03/11/2020 03/11/2020 03/13/2020 1:53 AM CDT documented as of this encounter Care Teams Drop Board Man Relationship Specialty Start Date End Date Mariam Esteban MD PCP - General SURGERY 07/21/16 08/19/19 Nagi Quintanilla MD [address] [place] [address] PCP - General FAMILY PRACTICE 09/27/19 01/30/20 Alonzo Campoverde MD [address] [place] [address] PCP - General INTERNAL MEDICINE 01/31/20 Diomedes Pritchard MD [address] [place] [address] [employer] Ruby Rails Developer CARDIOVASCULAR DISEASE 07/21/16 03/08/24 Joana Avitia, SHADER AND TONER, TOWEL SEWER-C [address] [facility] [address] [place] [address] NURSE PRACTITIONER 09/10/21 Diomedes Schwartz MD [address] [place] [address] [address] [place] [address] Vascular/Cardiologis t VASCULAR SURGERY 09/10/21 08/02/22 Bernardo Álvarez MD [address] [place] [address] Consulting Physician PULMONARY DISEASE 08/03/22 Alexi Acuña MD [address] [place] [address] Consulting Physician CLINICAL CARDIAC ELECTROPHYSIOLOGY 08/11/23 Violeta Brown PA-C [address] [place] [address] Referring Physician PHYSICIAN CANVAS GOODS SUPERVISOR 03/09/24 Rosa Saunders MD [address] [place], [place] 2[address] INTERVENTIONAL CARDIOLOGY 06/25/24 documented as of this encounter
--- OUTSIDE RECORDS SUMMARY | 2025-08-21 09:19 | XMS_ITS | Clinical Summary ---
Author Organization [facility] Address [address] [place] [address] Phone Care Team Providers Care Sash Assembler Name Role Phone Alonzo Campoverde MD Primary Care Provider [phone] Allergies No known active allergies Medications loratadine [...] on file Legal Sex Male 9:18 AM [facility] Gender Identity Not on file [...] (#1) 2025 2, 05/06/2021, 05/22/2020 Insurance MEDICARE [facility] Care Teams Sash Assembler Relationship Specialty Start Date End Date Alonzo Campoverde MD [address] [place] [address] PCP - General Internal Medicine 06/25/20
--- OUTSIDE RECORDS SUMMARY | 2025-08-21 09:19 | XMS_ITS | Encounter Summary ---
Author Organization [facility] Address [address] [place] [address] Care Team Providers Care Insurance Risk Manager Name Role Phone Mariam Esteban MD Primary Care Provider Diomedes Alarcon MD Unavailable [phone] Nagi Quintanilla MD Primary Care Provider [phone] Alonzo Campoverde MD Primary Care Provider [phone] Joana Avitia APRN TRIMMER MACHINE OPERATOR-C Unavailable [phone] Diomedes Schwartz MD Unavailable Bernardo Álvarez MD Unavailable [phone] Alexi Acuña MD Unavailable [phone] Violeta Brown-C Unavailable [phone] Rosa Saunders MD Unavailable [phone] Encounter Details Date Type Department Care Team (Late st Contact Info) Description 05/31/2018 Abstract [facility] [address] [place] [address] Diomedes Pritchard MD [address] [place] [address] Social History Tobacco Use Types Packs/Day Years Used Date Smoking Tobacco: Never Smokeless Tobacco: Never Alcohol Use Standard Drinks/Week Comments No 0 (1 standard drink = 0.6 oz pur e alcohol) Sex and Gender Information Value Date Recorded Sex Assigned at Male 10/03/2024 10:17 AM DETASSELING CREW SUPERVISOR Legal Sex Male 11:01 PM CDT Gender Identity Not on file Sexual Orientation Not on file 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 Not on file Not on file Not on f ile documented as of this encounter Plan of Treatment Upcoming Encounters Date Type Department Care Team (Latest Contact Info) Description 10/02/2025 11:15 AM DETASSELING CREW SUPERVISOR Allied Health/Nurse Visit [facility] [address] [place] [address] Alexi Acuña MD [address] [place] [address] 10/02/2025 11:30 AM DETASSELING CREW SUPERVISOR Office Visit [facility] [address] [place] [address] [phone] Violeta Brown, PA-C [address] [place] [address] 10/30/2025 1:00 PM CDT Appointment [facility] Non Invasive Cardiology - [facility] [address] [place] [address] Job Omer MD [address] [place] [address] 10/30/2025 2:30 PM CDT Office Visit [facility] [address] [place] [address] Job Omer MD [address] [address] Joana Avitia, MAGAZINE KEEPER, TRIMMER MACHINE OPERATOR-C [address] [address] 11/06/2025 1:30 AM CDT Allied Health/Nurse Visit [facility] [address] [place] [address] Alexi Acuña MD [address] [place] [address] documented as of this encounter Procedures Procedure [...] documented as of this encounter Care Teams Insurance Risk Manager Relationship Specialty Start Date End Date Mariam Esteban MD PCP - General SURGERY 07/21/16 08/19/19 Nagi Quintanilla MD [address] [place] [address] PCP - General FAMILY PRACTICE 09/27/19 01/30/20 Alonzo Campoverde MD [address] [place] [address] PCP - General INTERNAL MEDICINE 01/31/20 Diomedes Pritchard MD [address] [place] [phone] [place] Cage Cashier CARDIOVASCULAR DISEASE 07/21/16 03/08/24 Joana Avitia APRN, TRIMMER MACHINE OPERATOR-C [address] [place] [address] [address] [place] [address] NURSE PRACTITIONER 09/10/21 Diomedes Schwartz MD [address] [place] [address] [address] [place] [address] Vascular/Cardiologis t VASCULAR SURGERY 09/10/21 08/02/22 Bernardo Álvarez MD [address] [place] [address] Consulting Physician PULMONARY DISEASE 08/03/22 Alexi Acuña MD [address] [place] [address] Consulting Physician CLINICAL CARDIAC ELECTROPHYSIOLOGY 08/11/23 Violeta Brown PA-C [address] [place], [place] [address] Referring Physician PHYSICIAN TELECOMMUNICATIONS FIELD TECHNICIAN 03/09/24 Rosa Saunders MD [address] [place] [phone] INTERVENTIONAL CARDIOLOGY 06/25/24 documented as of this encounter
--- OUTSIDE RECORDS SUMMARY | 2025-08-21 09:19 | XMS_ITS | Clinical Summary ---
Author Organization [facility] Address [address] [place] [address] Care Team Providers Care Regional Account Director Name Role Phone Unavailable Primary Care Provider Unavailabl e Social History Tobacco Use Types Packs/Day Years Used Date Smoking Tobacco: Never Assessed Sex and Gender Information Value Date Recorded Sex Assigned at Not on file Legal Sex Male 8:56 AM FARM MECHANIC Gender Identity Not on file Sexual Orientation [...]
--- OUTSIDE RECORDS SUMMARY | 2025-08-21 09:19 | XMS_ITS | Clinical Summary ---
Author Organization [facility] Address [address] [place] [address] Care Team Providers Care Business Systems Manager Name Role Phone Alonzo Campoverde MD Primary Care Provider [phone] Allergies No known active allergies Medications rosuvastatin [...] 1 tablet (3 mg total) by mouth supervisor securities vault before breakfast 3 Active loratadine (CLARITIN) 10 [...] 06/20/2020 Assessment & Plan (10/19/2022 1:02 PM PULP GRINDER AND BLENDER): Stable continue ASA 81 mg. Stage 3a chronic kidney disease 12/26/2019 Hyperlipidemia 12/15/2016 Assessment & Plan (12/01/2022 10:57 AM CDT): Stable continue Crestor 20 mg. Assessment & Plan (10/19/2022 1:02 PM PULP GRINDER AND BLENDER): Stable continue Crestor 20 mg. DUGAN (dyspnea [...] year. Assessment & Plan (10/19/2022 1:03 PM PULP GRINDER AND BLENDER): Status post EVAR with an Endologix stent graft by Dr. Schwartz at [facility] with a right groin cutdown, has [...] on file Legal Sex Male 12:19 AM PULP GRINDER AND BLENDER Gender Identity Not on file Sexual Orientation [...] 65+ Completed 04/22/2019, 05/23 Insurance MEDICARE MEDICARE [facility] MEDICARE SUPPLEMENT Care Teams Business Systems Manager Relationship Specialty Start Date End Date Alonzo Campoverde MD [address] [place] [address] PCP - General Internal Medicine 03/21/25
--- OUTSIDE RECORDS SUMMARY | 2025-08-21 09:19 | XMS_ITS | Encounter Summary ---
Author Organization [facility] Address [address] [place] [address] Care Team Providers Care Insulation Installer Name Role Phone Mariam Esteban MD Primary Care Provider Diomedes Alarcon MD Unavailable [phone] Nagi Quintanilla MD Primary Care Provider [phone] Alonzo Campoverde MD Primary Care Provider [phone] Joana Avitia APRN, MUSEUM HOST/HOSTESS-C Unavailable Diomedes Schwartz MD Unavailable Bernardo Álvarez MD Unavailable [phone] Alexi Acuña MD Unavailable [phone] Violeta Brown-C Unavailable [phone] Rosa Saunders MD Unavailable [phone] Encounter Details Date Type Department Care Team (Late st Contact Info) Description 05/29/2018 Abstract [facility] [address] [place] [address] Joana Avitia APRN, MUSEUM HOST/HOSTESS-C [address] 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 Not on file Not on file Not on f ile documented as of this encounter Plan of Treatment Upcoming Encounters Date Type Department Care Team (Latest Contact Info) Description 10/02/2025 11:15 AM PACKING MACHINE FEEDER Allied Health/Nurse Visit [facility] [address] [place] [address] Alexi Acuña MD [address] [place] [address] 10/02/2025 11:30 AM PACKING MACHINE FEEDER Office Visit [facility] [place] [address] [facility] [place] [address] Violeta Brown PA-C [address] [place] [address] 10/30/2025 1:00 PM CDT Appointment [facility] Non Invasive Cardiology - [facility] [address] [place] [address] Job Omer MD [address] [place] [address] 10/30/2025 2:30 PM CDT Office Visit [facility] [address] [place] [address] Job Omer MD [address] [address] Joana Avitia, CHANNEL ACCOUNT MANAGER, MUSEUM HOST/HOSTESS-C [address] [address] 11/06/2025 1:30 AM CDT Allied Health/Nurse Visit [facility] [address] [place] [address] Alexi Acuña MD [address] [place] [address] documented as of this encounter Procedures Procedure [...] documented as of this encounter Care Teams Insulation Installer Relationship Specialty Start Date End Date Mariam Esteban MD PCP - General SURGERY 07/21/16 08/19/19 Nagi Quintanilla MD [address] [place], [place] [phone] PCP - General FAMILY PRACTICE 09/27/19 01/30/20 Alonzo Campoverde MD [address] [place] [address] PCP - General INTERNAL MEDICINE 01/31/20 Diomedes Pritchard MD [address] [place] [phone] [facility] Specialist CARDIOVASCULAR DISEASE 07/21/16 03/08/24 Joana Avitia, ROSA, MUSEUM HOST/HOSTESS-C [address] [place] [address] [address] [place] [address] NURSE PRACTITIONER 09/10/21 Diomedes Schwartz MD [address] [place] [address] [address] [place] [address] Vascular/Cardiologis t VASCULAR SURGERY 09/10/21 08/02/22 Bernardo Álvarez MD [address] [place] [phone] Consulting Physician PULMONARY DISEASE 08/03/22 Alexi Acuña MD [address] [place] [address] Consulting Physician CLINICAL CARDIAC ELECTROPHYSIOLOGY 08/11/23 Violeta Brown PA-C [address] [place] [address] Referring Physician PHYSICIAN FRONT EDGER 03/09/24 Rosa Saunders MD [address] [place] [address] INTERVENTIONAL CARDIOLOGY 06/25/24 documented as of this encounter
--- OUTSIDE RECORDS SUMMARY | 2025-08-21 09:19 | XMS_ITS | Encounter Summary ---
Author Organization [facility] Address [address] [place] [address] Care Team Providers Care Vocal Music Instructor Name Role Phone Mariam Esteban MD Primary Care Provider Diomedes Alarcon MD Unavailable [phone] Nagi Quintanilla MD Primary Care Provider [phone] Alonzo Campoverde MD Primary Care Provider [phone] Joana Avitia APRN, GUEST SERVICES AMBASSADOR-C Unavailable Diomedes Schwartz MD Unavailable Bernardo Álvarez MD Unavailable [phone] Alexi Acuña MD Unavailable [phone] Violeta Brown-C Unavailable [phone] Rosa Saunders MD Unavailable [phone] Encounter Details Date Type Department Care Team (Latest Contact Info) Description 04/04/2018 Abstract [facility] Medical Group Bernardo Álvarez MD [address] [place] [address] Social History Tobacco Use Types Packs/Day Years Used Date Smoking Tobacco: Never Alcohol Use Standard Drinks/Week Comments No 0 (1 standard drink = 0.6 oz pur e alcohol) Sex and Gender Information Value Date Recorded Sex Assigned at Male 10/03/2024 10:17 AM MULTIMEDIA SERVICES MANAGER Legal Sex Male 11:01 PM CDT Gender Identity Not on file Sexual Orientation Not on file 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 Not on file Not on f ile documented as of this encounter Plan of Treatment Upcoming Encounters Date Type Department Care Team (Latest Contact Info) Description 10/02/2025 11:15 AM MULTIMEDIA SERVICES MANAGER Allied Health/Nurse Visit [address] [place] [address] Alexi Acuña MD [address] [place] [address] 10/02/2025 11:30 AM MULTIMEDIA SERVICES MANAGER Office Visit [address] [place] [address] Violeta Brown PA-C [address] [place] [address] 10/30/2025 1:00 PM CDT Appointment [facility] Non Invasive Cardiology - [facility] [address] [place] [address] Job Omer MD [address] [address] 10/30/2025 2:30 PM CDT Office Visit [facility] [address] [place] [address] Job Omer MD [address] [address] Joana Avitia, FAMILY SUPPORT SPECIALIST, GUEST SERVICES AMBASSADOR-C [address] [phone] 11/06/2025 1:30 AM CDT Allied Health/Nurse Visit [facility] [address] [place] [address] Alexi Acuña MD [address] [place] [address] documented as of this encounter Visit Diagnoses Not on filedocumented in this encounter Additional Health Concerns Infection Onset Date Last Indicated Resolved Time COVID-19 Rule Out 03/11/2020 03/11/2020 03/13/2020 1:53 AM CDT documented as of this encounter Care Teams Vocal Music Instructor Relationship Specialty Start Date End Date Mariam Esteban MD PCP - General SURGERY 07/21/16 08/19/19 Nagi Quintanilla MD [address] [place], [place] [phone] PCP - General FAMILY PRACTICE 09/27/19 01/30/20 Alonzo Campoverde MD [address] [place] [phone] PCP - General INTERNAL MEDICINE 01/31/20 Diomedes Pritchard MD [address] [place] [phone] [place] Piece Goods Packer CARDIOVASCULAR DISEASE 07/21/16 03/08/24 Joana Avitia, FAMILY SUPPORT SPECIALIST, GUEST SERVICES AMBASSADOR-C [address] [facility] [address] [place] [address] NURSE PRACTITIONER 09/10/21 Diomedes Schwartz MD [address] [place] [address] [address] [place] [address] Vascular/Cardiologis t VASCULAR SURGERY 09/10/21 08/02/22 Bernardo Á[place] [address] [place] [address] Consulting Physician PULMONARY DISEASE 08/03/22 Alexi Acuña MD [address] [place] [address] Consulting Physician CLINICAL CARDIAC ELECTROPHYSIOLOGY 08/11/23 Violeta Brown PA-C [address] [place] [address] Referring Physician PHYSICIAN APPAREL STOCK CHECKER 03/09/24 Rosa Saunders MD [address] [place], [place] [phone] INTERVENTIONAL CARDIOLOGY 06/25/24 documented as of this encounter
--- OUTSIDE RECORDS SUMMARY | 2025-08-21 09:19 | XMS_ITS | Encounter Summary ---
Author Organization [facility] Address [address] [place] [address] Care Team Providers Care Associate Merchandiser Name Role Phone Mariam Esteban MD Primary Care Provider Diomedes Alarcon MD Unavailable [phone] Nagi Quintanilla MD Primary Care Provider [phone] Alonzo Campoverde MD Primary Care Provider [phone] Joana Avitia APRN DE ALCHOLIZER-C Unavailable [phone] Diomedes Schwartz MD Unavailable Bernardo Álvarez MD Unavailable [phone] Alexi Acuña MD Unavailable [phone] Violeta Brown-C Unavailable [phone] Rosa Saunders MD Unavailable [phone] Encounter Details Date Type Department Care Team (Late st Contact Info) Description 04/24/2015 Abstract [facility] [address] [place] [address] Diomedes Pritchard MD [address] [place] [address] Social History Tobacco Use Types Packs/Day Years Used Date Smoking Tobacco: Never Alcohol Use Standard Drinks/Week Comments No 0 (1 standard drink = 0.6 oz pur e alcohol) Sex and Gender Information Value Date Recorded Sex Assigned at Male 10/03/2024 10:17 AM LEAD PORTFOLIO MANAGER Legal Sex Male 11:01 PM CDT Gender Identity Not on file Sexual Orientation Not on file 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 Not on file Not on f ile documented as of this encounter Plan of Treatment Upcoming Encounters Date Type Department Care Team (Latest Contact Info) Description 10/02/2025 11:15 AM LEAD PORTFOLIO MANAGER Allied Health/Nurse Visit [facility] [address] [place] [address] Alexi Acuña MD [address] [place] [address] 10/02/2025 11:30 AM LEAD PORTFOLIO MANAGER Office Visit [address] [place] [address] Violeta Brown, PA-C [address] [place] [address] 10/30/2025 1:00 PM CDT Appointment [facility] Non Invasive Cardiology - [facility] [address] [place] [address] Job Omer MD [address] [place] [address] 10/30/2025 2:30 PM CDT Office Visit [facility] [address] [place] [address] Job Omer MD [address] [address] Joana Avitia, SUBSCRIPTION AGENT, DE ALCHOLIZER-C [address] [phone] 11/06/2025 1:30 AM CDT Allied Health/Nurse Visit [facility]d [address] [place] [address] Alexi Acuña MD [address] [place] [address] documented as of this encounter Visit Diagnoses Not on filedocumented in this encounter Additional Health Concerns Infection Onset Date Last Indicated Resolved Time COVID-19 Rule Out 03/11/2020 03/11/2020 03/13/2020 1:53 AM CDT documented as of this encounter Care Teams Associate Merchandiser Relationship Specialty Start Date End Date Mariam Esteban MD PCP - General SURGERY 07/21/16 08/19/19 Nagi Quintanilla MD [address] [place], [place] [phone] PCP - General FAMILY PRACTICE 09/27/19 01/30/20 Alonzo Campoverde MD [address] [place] [address] PCP - General INTERNAL MEDICINE 01/31/20 Diomedes Pritchard MD [address] [place] [address] [place] Meter Tester Polyphase CARDIOVASCULAR DISEASE 07/21/16 03/08/24 Joana Avitia APRN, DE ALCHOLIZER-C [address] [facility] [address] [place] [address] NURSE PRACTITIONER 09/10/21 Diomedes Schwartz MD [address] [place] [address] [address] [place] [address] Vascular/Cardiologis t VASCULAR SURGERY 09/10/21 08/02/22 Bernardo Álvarez MD [address] [place] [address] Consulting Physician PULMONARY DISEASE 08/03/22 Alexi Acuña MD [address] [place] [address] Consulting Physician CLINICAL CARDIAC ELECTROPHYSIOLOGY 08/11/23 Violeta Brown PA-C [address] [place] [address] Referring Physician PHYSICIAN BOX TOE BUFFER 03/09/24 Rosa Saunders MD [address] [place] [phone] INTERVENTIONAL CARDIOLOGY 06/25/24 documented as of this encounter
--- OUTSIDE RECORDS SUMMARY | 2025-08-21 09:19 | XMS_ITS | Encounter Summary ---
Author Organization [facility] Address [address] [place] [address] Care Team Providers Care Carburetor Repairer Name Role Phone Mariam Esteban MD Primary Care Provider Diomedes Alarcon MD Unavailable [phone] Nagi Quintanilla MD Primary Care Provider [phone] Alonzo Campoverde MD Primary Care Provider [phone] Joana Avitia APRN BAKING FACTORY WORKER-C Unavailable [phone] Diomedes Schwartz MD Unavailable Bernardo Álvarez MD Unavailable [phone] Alxei Acuña MD Unavailable [phone] Violeta Brown-C Unavailable [phone] Rosa Saunders MD Unavailable [phone] Encounter Details Date Type Department Care Team (Late st Contact Info) Description 05/29/2018 Abstract [facility] [address] [place] [address] Diomedes Pritchard MD [address] [place] [address] Social History Tobacco Use Types Packs/Day Years Used Date Smoking Tobacco: Never Smokeless Tobacco: Never Alcohol Use Standard Drinks/Week Comments No 0 (1 standard drink = 0.6 oz pur e alcohol) Sex and Gender Information Value Date Recorded Sex Assigned at Male 10/03/2024 10:17 AM PUNCH PRESS FEEDER Legal Sex Male 11:01 PM CDT Gender Identity Not on file Sexual Orientation Not on file 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 Not on file Not on f ile documented as of this encounter Plan of Treatment Upcoming Encounters Date Type Department Care Team (Latest Contact Info) Description 10/02/2025 11:15 AM PUNCH PRESS FEEDER Allied Health/Nurse Visit [facility] [address] [place] [address] Alexi Acuña MD [address] [place] [address] 10/02/2025 11:30 AM PUNCH PRESS FEEDER Office Visit [facility] [address] [place] [address] [phone] Violeta Brown, PA-C [address] [place] [address] 10/30/2025 1:00 PM CDT Appointment [facility] Non Invasive Cardiology - [facility] [address] [place] [address] Job Omer MD [address] [place] [address] 10/30/2025 2:30 PM CDT Office Visit [facility] [address] [place] [phone] Job Omer MD [address] [address] Joana Avitia, CHEMICAL TECHNICIAN, BAKING FACTORY WORKER-C [address] [phone] 11/06/2025 1:30 AM CDT Allied Health/Nurse Visit [facility]d [address] [place] [address] Alexi Acuña MD [address] [place], [place] 9[address] documented as of this encounter Visit Diagnoses Not on filedocumented in this encounter Additional Health Concerns Infection Onset Date Last Indicated Resolved Time COVID-19 Rule Out 03/11/2020 03/11/2020 03/13/2020 1:53 AM CDT documented as of this encounter Care Teams Carburetor Repairer Relationship Specialty Start Date End Date Mariam Esteban MD PCP - General SURGERY 07/21/16 08/19/19 Nagi Quintanilla MD [address] [place], [place] [phone] PCP - General FAMILY PRACTICE 09/27/19 01/30/20 Alonzo Campoverde MD [address] [place] [address] PCP - General INTERNAL MEDICINE 01/31/20 Diomedes Pritchard MD [address] [place] [address] [place] Quality Compliance Consultant CARDIOVASCULAR DISEASE 07/21/16 03/08/24 Joana Avitia APRN, BAKING FACTORY WORKER-C [address] [place] [address] [address] [place] [address] NURSE PRACTITIONER 09/10/21 Diomedes Schwartz MD [address] [place] [address] [address] [place] [address] Vascular/Cardiologis t VASCULAR SURGERY 09/10/21 08/02/22 Bernardo Álvarez MD [address] [place] [address] Consulting Physician PULMONARY DISEASE 08/03/22 Alexi Acuña MD [address] [place] [address] Consulting Physician CLINICAL CARDIAC ELECTROPHYSIOLOGY 08/11/23 Violeta Brown PA-C [address] [place] [address] [phone] Referring Physician PHYSICIAN TALENT ADVISOR 03/09/24 Rosa Saunders MD [address] [place] [address] INTERVENTIONAL CARDIOLOGY 06/25/24 documented as of this encounter
--- OUTSIDE RECORDS SUMMARY | 2025-08-21 09:19 | XMS_ITS | Clinical Summary ---
Author Organization [facility] Address [address] [place] [address] Care Team Providers Care Surveillance Technician Name Role Phone Alonzo Campoverde MD Primary Care Provider [phone] Joana Avitia APRN, NP-C Unavailable Bernardo Álvarez MD Unavailable [phone] Alexi Acuña MD Unavailable [phone] Violeta Brown PA-C Unavailable [phone] Rosa Saunders MD Unavailable [phone] Allergies No known active allergies Medications [...] mg total) by mouth daily. 05/30/2024 Active escitalopram (LEXAPRO) 5 MG tablet Active ezetimibe (ZETIA) 10 MG tablet Active Semaglutide (RYBELSUS OR) Active amLODIPine (NORVASC) 10 MG tablet Take 1 tablet (10 mg total) by mouth daily. Take 1/2 tab by mouth daily for three days, then take 1 tab daily 90 tablet 3 07/30/2025 07/30/20 Active empagliflozin (JARDIANCE) 10 MG tablet Take 1 tablet (10 mg total) by mouth daily. 90 tablet 3 07/30/2025 Active Active Problems Problem Noted Date Diagnosed Date Nonrheumatic tricuspid valve regurgitation 07/30 Primary hypertension 07/30/2025 Sinus bradycardia 04/04/2024 Atrial fibrillation, unspecified type [...] Encounters Date Type Department Care Team Description 08/05/2025 Telephone [facility] [address] [place] [address] Job Omer MD Reschedule 07/31/2025 3:15 AM EDGE FINISHER Allied Health/Nurse Visit [facility] [address] [place] [address] Alexi Acuña MD 07/30/2025 2:00 PM EDGE FINISHER Office Visit [facility] [address] [place] [address] [facility] 07/30/2025 1:45 PM EDGE FINISHER - 07/30/2025 11:59 PM EDGE FINISHER Hospital Encounter [facility] [address] [facility] [place] [address] [place] [address] Job Omer MD Discharge Disposition: Home or Self Care (Routine Discharge) 07/30/2025 Travel 07/26/2025 Orders Only [facility] [address] [place] [address] Job Omer MD 07/02/2025 Telephone [facility] [address] [place] [address] Alexi Acuña MD Information 06/30/2025 8:15 AM EDGE FINISHER Allied Health/Nurse Visit [facility] [address] [place] [address] Alexi Acuña MD 06/14/2025 1:15 AM CDT Allied Health/Nurse Visit [facility] [address] [place] [address] Alexi Acuña MD from Last 3 Months [...] place to sleep or slept in a alf (including now)? 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 Not on file Not on file Not on f ile Last Filed Vital Signs Vital Sign Reading Time Taken Comments Blood Pressure 148/98 07/30/2025 2:12 PM EDGE FINISHER Pulse 65 07/30/2025 2:12 PM EDGE FINISHER Temperature 35.9 C (96.6 F) 08/08/2023 12:06 PM EDGE FINISHER Respiratory Rate 18 07/30/2025 2:12 PM EDGE FINISHER Oxygen Saturation 98% 07/30/2025 2:12 PM EDGE FINISHER Inhaled Oxygen Concentration - - Weight 100.7 kg (222 lb) 07/30/2025 2:12 PM EDGE FINISHER Height 185.4 cm (6' 1) 07/30/2025 2:12 PM EDGE FINISHER Body Mass Index 29.29 07/30/2025 2:12 PM EDGE FINISHER Plan of Treatment Upcoming Encounters Date Type Department Care Team (Latest Contact Info) Description 10/02/2025 11:15 AM EDGE FINISHER Allied Health/Nurse Visit [facility] [place] [address] Alexi Acuña MD [address] [place], [place] [address] 10/02/2025 11:30 AM EDGE FINISHER Office Visit [facility] [place] [address] Violeta Brown PA-C [address] [place] [address] 10/30/2025 1:00 PM CDT Appointment [facility] Non Invasive Cardiology - [facility] [address] [place] [address] Job Omer MD [address] [address] 10/30/2025 2:30 PM CDT Office Visit [facility] [address] [place] [phone] Job Omer MD [address] [phone] Joana Avitia APRN, SALON COORDINATOR-C [address] [phone] 11/06/2025 1:30 AM CDT Allied Health/Nurse Visit [facility] [address] [place] [phone] Alexi Acuña MD [address] [place] [address] Health Maintenance Due Date Last Done Comments ASCVD LDL 1945 ASCVD Statin 1945 Hepatitis C 01/27/1964 Zoster Vaccines (1 of 2) 01/27/1996 Annual Medicare Wellness Visit 2011 COVID-19 Vaccine ( season) 2025 06/14/2023, 05/23/2022, 05/26/2021, Additional history exists Influenza Adult (#1) 2025 06/05/2022, 05/05/2021, 05/26/2020 DTaP, Tdap and Td Vaccines (3 - Td or Tdap) 02/07/2032 02/06/2022, 01/02/2019 AAA SCREENING Completed 11/12/2022, 10/21, 11/21/2021, Additional history exists Pneumococcal Vaccine: 50+ Years Completed 07/18/2023, 04/22/2019, 01/02/2019, Additional history exists RSV Immunization or 60+ Years Completed 07/18/2023 Hepatitis A Vaccines Aged Out No long [...] Gupta RN Medical Devices Implanted Type Area Eclectic Doctor Device Identifier Shelf Expiration Date Model / Serial / Lot Holliday Proximal Endograft System Implanted:Qt y: 1 on 10/05/2021 by Tess Payne MD at [facility] Graft N/A: Aorta ENDOLOGIX [id number] 07/24/2022 A28-28/C 95-020 V / [id number] / Medtronic Linq Ii- 3 Implanted: by Alexi Acuña MD (Quantity not on file) Implantable Loop Recorder [employer] 10/21/2024 [id number] / [id number] / Description:DX: Suspected AF Cv Biotronik Orsiro Tomy Mid Lad- 0 Implanted:Qt y: 1 on 03/14/2020 by Dc Tipton MD Stent Coronary LAD BIOTRONIK 04/25/2021 [id number] / / [id number] Orrtanna Viabahn 9mm X 59mm Stent Rt Eia-04/26/2023 Implanted: by Mega Cobb MD (Quantity not on file) Stent [employer] 06/22/2025 [id number] / [id number] / [id number] Bifurcated Endograft System Implanted:Qt y: 1 on 10/05/2021 by Tess Payne MD at [facility] N/A: Aorta ENDOLOGIX [id number] 05/28/2023 [id number] /[id number] / [id number] / Description:Positioned in DI STAL AORTA Procedures Procedure Name Priority Date/Time Associated Diagnosis Comments ECG 12-LEAD Routine 07/30/2025 2:05 PM EDGE FINISHER Sinus bradycardia Hyperlipidemia, unspecified hyperlipidemia type CTA ABD+PEL Routine 11/21/2021 11:52 AM CDT Abdominal aortic aneurysm without rupture from Last 3 Months or Most Recently Relevant to Health Maintenance Results * ECG 12 lead (HOSPITAL PERFORMED ONLY) (07/30/2025 2:05 PM EDGE FINISHER) ECG QT 440 [facility] ECG QTC 426 [facility] 07/30/2025 2:05 PM EDGE FINISHER Narrative [facility] - 07/31/2025 5:52 AM EDGE FINISHER [address] 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: : 1945 Requested By: JOB OMER Order Number: [id number] Reading MD: Job Omer Measurements Intervals [place]gehee Rate: 56 P: 75 VA: 220 QRS: 40 QRSD: 145 T: 58 QT: 440 QTc: 426 Interpretive Statements SINUS BRADYCARDIA WITH FIRST DEGREE AV BLOCK WITH OCCASIONALSUPRAVENTRICULAR PREMATURE COMPLEXES INDETERMINATE AXIS RIGHT BUNDLE BRANCH BLOCK [120+ ms QRS DURATION, UPRIGHT V1, 40+ ms SIN I/aVL/V4/V5/V6] FINISHER Job Omer MD ECG ORDERABLES Final Result [facility] RAD * CTA ABD+PEL (11/21/2021 11:52 AM CDT) [...] Recently Relevant to Health Maintenance Insurance MEDICARE [facility] MEDICARE Advance Directives * Full Code (Latest [...] 11:39 AM 03/14/2020 6:59 PM Care Teams Surveillance Technician Relationship Specialty Start Date End Date Alonzo Campoverde MD [address] [place] [address] PCP - General INTERNAL MEDICINE 01/31/20 Joana Avitia APRN, SALON COORDINATOR-C [address] [place] [address] [address] NURSE PRACTITIONER 09/10/21 Bernardo Álvarez MD [address] [place] [address] Consulting Physician PULMONARY DISEASE 08/03/22 Alexi Acuña MD [address] [place] [address] Consulting Physician CLINICAL CARDIAC ELECTROPHYSIOLOGY 08/11/23 Violeta rBown PA-C [address] [place] [address] Referring Physician PHYSICIAN MARKET MASTER 03/09/24 Rosa Saunders MD [address] [place] [address] INTERVENTIONAL CARDIOLOGY 06/25/24
[2025-08-21 09:36] LABS: Hematocrit 49.3 % (37.0-46.0); Hemoglobin 15.1 g/dL (12.4-15.3); Mean Corpuscular HGB Conc 30.6 g/dL (32-36); Mean Corpuscular Hemoglobin 26.9 pg (27.0-31.0); Mean Corpuscular Volume 87.7 fL (78.0-102.0); Platelet Count Result 152 K/mm3 (150-420); Red Blood Count 5.62 M/mm3 (4.70-6.10); White Blood Count 8.7 K/mm3 (4.8-10.8)
[2025-08-21 09:51] LABS: Alanine Aminotransferase 74 U/L (6-50); Albumin Level 4.7 g/dL (3.5-5.1); Alkaline Phosphatase 100 U/L (38-126); Anion Gap 12 mmol/L (4-12); Aspartate Amino Transferase 49 U/L (17-59); Bilirubin,Total 0.6 mg/dL (0.2-1.3); Blood Urea Nitrogen 36 mg/dL (9-20); Calcium 10.7 mg/dL (8.4-10.2); Carbon Dioxide 29 mmol/L (22-30); Chloride 109 mmol/L (98-107); Estimated Glomerular Filt Rate 36; Glucose 143 mg/dL (65-110); Osmolality Calculated 320 mOsm/kg (285-295); Potassium 4.9 mmol/L (3.4-5.0); Sodium 150 mmol/L (137-145); Total Protein 7.9 g/dL (6.3-8.2)
[2025-08-21 10:00] LABS: NT Pro B Type Natriuretic Pept 293 pg/mL (19.9-100)
== END 2025-08-21 09:15 | disposition home or self-care (01) ==
PROVIDERS: PCP Internal Medicine; Visit Provider Nurse Practitioner Family
DX: I50.9 Heart failure, unspecified (principal); N18.31 Chronic kidney disease, stage 3a
CPT/HCPCS: 36415; 80053; 83880; 85027